=== PATIENT | female | born 1960 | race Caucasian/White ===

== ENCOUNTER → 2017-04-16 | Outpatient (CLI) | payer OTHER ==
[~2017-04-16] MED LIST: ACT300 PO; ATR10 PO; ATR25 PO; AZAT50TA22 PO; CIPR-255 PO; CRG/20 PO; GABA1CAP4 PO; HYDR-5688 PO; INSDGI SC; INSU100I SC; LPT/20 PO; NVLG SC; PANT40TA2 PO; [UNRECOGNIZED DRUG - CODE] PO; [UNRECOGNIZED DRUG - CODE] SC
[2017-04-16 15:05] LABS: ALT/SGPT 32 U/L (12-78); BLOOD UREA NITROGEN 15 mg/dl (7-18); BUN/CREATININE RATIO 19.6 (10-20); CARBON DIOXIDE 24 mmol/L (21-32); CHLORIDE 108 mmol/L (98-107); CREATININE 0.74 mg/dl (0.60-1.20); GLUCOSE 212 mg/dl (70-99); POTASSIUM 3.9 mmol/L (3.5-5.1); SODIUM 142 mmol/L (136-145)
[2017-04-16 15:06] LABS: ALB/GLOB RATIO 0.5 (0.9-2); AST/SGOT 69 U/L (15-37)
[2017-04-16 15:11] LABS: ALKALINE PHOSPHATASE 221 U/L (45-117)
== END | disposition home or self-care (01) ==
LOC: C.LAB1850 11:57
PROVIDERS: ATTEND Internal Medicine Hematology & Oncology
DX: D53.1 Other megaloblastic anemias, not elsewhere classified (principal)

== ENCOUNTER → 2017-05-10 | Outpatient (CLI) | payer OTHER ==
[~2017-05-10] MED LIST changes: -PANT40TA2 PO; +PRT/40 PO
--- NOTE | 2017-05-10 09:39 | DIAGNOSTIC IMAGING REPORT ---
ABDOMEN LIMITED (US) HISTORY:57 yearsFemaleHYPERSPLENISM COMPARISON: Ultrasound 09/22/2013. TECHNIQUE: Multiple real-time sonography images of the abdominal right upper quadrant were obtained assessing grayscale appearance, color and spectral flow. FINDINGS: Liver is measured up to 15.6 cm. Hepatic parenchyma is heterogeneous with marginal nodularity. Hepatofugal flow is noted within the main portal vein. There appears be recanalization of the umbilical vein. Likely portosystemic collaterals are noted near the john hepatis. The common bile duct appears normal, 0.47 cm. No significant ascites. There is a reportedly mobile echogenic lesion within the bladder neck without internal vascularity, 1.4 x 1.3 cm. No shadowing cholelithiasis or gallbladder wall thickening. There is a cystic appearing lesion without internal vascularity seen along the anterior aspect of the pancreatic head, 1.2 x 0.6 x 0.7 cm. Spleen is enlarged, 13.9 cm. The midright kidney appears normal without hydronephrosis. IMPRESSION: 1. Findings compatible with cirrhotic liver disease and sequela of portal venous hypertension including hepatofugal flow within the portal vein and splenomegaly. 2. Reportedly mobile echogenic lesion within the gallbladder neck measuring up to 1.4 cm suggests sludge ball. 3. No cholelithiasis or evidence of acute cholecystitis. The above report was generated using voice recognition software. It may contain grammatical, syntax or spelling errors. Electronically signed by: Yoel Sanchez 05/10/2017 9:38 AM Dictated Date/Time: 05/10/2017 9:32 AM
--- NOTE | 2017-05-10 11:12 | DIAGNOSTIC IMAGING REPORT ---
SKELETAL SURVEY COMPLETE CLINICAL HISTORY: Monoclonal gammopathy of uncertain significance. COMPARISON STUDY: Skeletal survey January 04, 2015. FINDINGS: No suspicious lytic calvarial lesions are noted. Alignment of the cervical spine is anatomic. There are no cervical fractures or suspicious lesions within the cervical spine. There are no lytic lesions within the proximal humeri. No thoracic or lumbar spine compression fractures are present. Mild multilevel degenerative changes are present. No lytic lesions are identified within the pelvis or hips. IMPRESSION: No lytic lesions identified by skeletal survey. Electronically signed by: Omar Orlando M.D. 05/10/2017 11:11 AM Dictated Date/Time: 05/10/2017 10:20 AM
== END | disposition home or self-care (01) ==
LOC: C.ULTR 08:12
PROVIDERS: ATTEND Nurse Practitioner Family
DX: D47.2 Monoclonal gammopathy (principal)

== ENCOUNTER 2017-08-05 21:53 | Emergency (ER) | payer OTHER ==
[~2017-08-05] VITALS: Ht 147.3 cm; Wt 80.1 kg
[~2017-08-05 21:53] MED LIST changes: -ATR10 PO; -CIPR-255 PO; -GABA1CAP4 PO; -HYDR-5688 PO; -INSU100I SC; -LPT/20 PO; -PRT/40 PO; -[UNRECOGNIZED DRUG - CODE] PO
[2017-08-05 21:57] VITALS: Ht 147.3 cm; Wt 80.1 kg
[2017-08-05] MEDS ORDERED: ATR10 PO (22:24)
[2017-08-05] MEDS ORDERED: INSU100I SC (22:24)
[2017-08-05] MEDS ORDERED: [UNRECOGNIZED DRUG - CODE] PO (22:24)
[2017-08-05] MEDS ORDERED: PRT/40 PO (22:24)
[2017-08-05] MEDS ORDERED: GABA1CAP4 PO (22:24)
[2017-08-05] MEDS ORDERED: LPT/20 PO (22:24)
[2017-08-05] MEDS ORDERED: MoRPHine SULFATE 10 MG/ML CARP/VIAL IV STA (22:59)
[2017-08-05] MEDS ORDERED: ONDANSETRON INJ 2 MG/ML 2 ML VIAL IV STA (22:59)
[2017-08-05] MEDS ORDERED: SODIUM CHLORIDE 0.9% 1000ML 1,000 ML IV ONE (23:00)
[2017-08-05 23:40] LABS: URINE APPEARANCE CLEAR (CLEAR); URINE BILIRUBIN NEG (NEG); URINE COLOR DK YELLOW; URINE EPITHELIAL CELL AUTO >30 /lpf (0-5); URINE NITRITE NEG (NEG); URINE SPECIFIC GRAVITY 1.023 (1.000-1.030); UROBILINOGEN NEG (NEG); ZZUR CULT IF INDIC CLEAN CATCH YES
[2017-08-05 23:44] LABS: MANUAL MICROSCOPIC REQUIRED? NO; REVIEW REQ? NO
[2017-08-05 23:57] LABS: BUN/CREATININE RATIO 12.7 (10-20); CALCIUM 8.4 mg/dl (8.5-10.1); CREATININE 0.78 mg/dl (0.60-1.20); POTASSIUM 4.1 mmol/L (3.5-5.1)
[2017-08-05 23:59] LABS: ALB/GLOB RATIO 0.5 (0.9-2)
[2017-08-06 00:07] LABS: BETA-HYDROXYBUTYRATE 0.67 mg/dL (0.2-2.81)
[2017-08-06 00:26] LABS: HEMATOCRIT 28.2 % (37-47); MEAN CELL VOLUME 99.6 fL (80-100); MEAN CORPUSCULAR HEMOGLOBIN 33.9 pg (25-34); MEAN PLATELET VOLUME 11.4 fL (7.4-10.4); PLATELET COUNT 72 K/uL (130-400); RED BLOOD COUNT 2.83 M/uL (4.2-5.4); WHITE BLOOD COUNT 3.27 K/uL (4.8-10.8)
[2017-08-06 00:27] LABS: BASO % 0.3 %; BASO ABS # 0.01 K/uL (0-0.2); COMPLETE YES; EOS % 1.8 %; IG% 1.2 %; LYMPH % 24.5 %; MONO % 11.3 %; NEUT % 60.9 %
[2017-08-06] MEDS ORDERED: CIPROFLOXACIN 500 MG TAB PO STA (01:06)
[2017-08-06] MEDS ORDERED: KETOROLAC TROMETHAMINE 30 MG/ML VIAL IV STA (01:06)
[2017-08-06] MEDS ORDERED: HYDR-5688 PO (01:07)
[2017-08-06] MEDS ORDERED: CIPR-255 PO (01:07)
[2017-08-06 01:25] VITALS: BP 121/64; PULSE 84; TEMP 37.2; O2SAT 96
--- NOTE | 2017-08-06 07:16 | DIAGNOSTIC IMAGING REPORT ---
ABD/PELVIS NO IV OR ORAL CONT HISTORY: 57 years-old Female right flank pain acute right-sided flank pain COMPARISON: Ultrasound 09/22/2013 TECHNIQUE: Multiple axial CT images of the abdomen and pelvis were obtained without contrast. A dose lowering technique was used consistent with the principals of SANDIE. FINDINGS: Lung bases are generally clear. No pneumoperitoneum. Imaged inferior cardiac chambers are unremarkable. Evaluation of the solid abdominal organs is limited without the use of IV contrast. Heterogeneity with marginal nodularity of the liver is seen compatible with cirrhosis. Spleen is enlarged measuring up to 15.8 cm in craniocaudal dimension. Pancreas and adrenal glands are unremarkable. Gallstones are seen layering within the contracted gallbladder lumen. No CT evidence of acute cholecystitis. Low attenuating lesion of the interpolar left kidney, 1.5 cm suggests cyst. Punctate nonobstructing calculus of the superior pole right kidney noted on image 138 of series 3. No hydronephrosis. Ureters, urinary bladder are unremarkable. Prior hysterectomy. The abdominal aorta is normal in course and caliber. No bulky retroperitoneal adenopathy. 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 There is no bowel obstruction or focal bowel wall thickening identified. Colonic diverticulosis without diverticulitis. The appendix is not seen. No secondary signs of acute appendicitis. Soft tissues are unremarkable with the exception of calcifications of the right breast which are indeterminate. The bones are mildly demineralized. IMPRESSION: 1. No acute intra-abdominal or intrapelvic abnormality identified. 2. Cirrhotic liver disease with upper abdominal varices including perisplenic and gastrohepatic varices. No significant abdominal ascites. 3. Cholelithiasis without CT evidence of acute cholecystitis. 4. Punctate nonobstructing calculus of the superior pole right kidney. No hydronephrosis. 5. Additional incidental findings as above. The above report was generated using voice recognition software. It may contain grammatical, syntax or spelling errors. Electronically signed by: Yoel Sanchez M.D. 08/06/2017 7:14 AM Dictated Date/Time: 08/06/2017 7:07 AM
--- NOTE | 2017-08-06 23:58 | EMERGENCY ROOM VISIT NOTE ---
History First contact with patient: 22:26 Chief Complaint: BACK PAIN Stated Complaint: BACK AND SIDE PAIN History of Present Illness The patient is a 57 year old female who presents to the Emergency Room with complaints of right-sided back pain for the past one to 2 weeks. The patient states at times she'll have pain in her right side and right-sided low back. She does not have injury or trauma to explain her symptoms. No increase in physical activities. Her symptoms were initially thought to be related to a kidney stone or kidney infection, and she did follow with her PCP. She was placed on antibiotics which did improve her symptoms. She completed antibiotics several days ago, but now continues with persisting pain. The patient has not had nausea or vomiting. No chest pain or shortness of breath. She rates her discomfort a 7/10 that does not appear to significantly improve or worsen with position. She does not have numbness or paresthesias. No difficulty using the bathroom. Review of Systems More than 10 systems were reviewed and otherwise negative with the exception of history of present illness. Past Medical/Surgical History History of diabetes Family History No pertinent family history Social History Smoking Status: Never Smoker Alcohol Use: none Drug Use: none Marital Status: Housing Status: lives with family Occupation Status: employed Current/Historical Medications Scheduled Atorvastatin (Atorvastatin Calcium), 20 MG PO DAILY Ciprofloxacin Hcl (Cipro), 500 MG PO BID Gabapentin (Gabapentin), 300 MG PO HS Hydroxyzine HCl (Hydroxyzine HCl), 10 MG PO HS Insulin Glargine (Lantus), 40 UNITS SC HS Insulin Lispro (Human) (Humalog), 15 UNITS SC TIDM Nadolol (Corgard), 20 MG PO DAILY Pantoprazole (Pantoprazole Sodium), 40 MG PO QAM Ursodiol (Ursodiol), 300 MG PO AMHS Ursodiol (Ursodiol), 250 MG PO AMHS Scheduled PRN Hydrocodone/Acetaminophen 5MG/325MG ([place] 5MG/325MG), 1 TABLET PO Q6 PRN for Pain Physical Exam Vital Signs Date Time Temp Pulse Resp B/P (MAP) Pulse Ox O2 Delivery O2 Flow Rate FiO2 08/06/17 01:25 37.2 84 18 121/64 96 08/05/17 23:55 84 18 121/64 96 Room Air 08/05/17 21:57 37.2 85 18 139/72 98 Room Air Physical Exam VITALS: Vitals are noted on the nurse's note and reviewed by myself. Vital signs stable. GENERAL: Well-developed, well-nourished, white female, who is in no acute distress and resting comfortably. Patient is cooperative with the examination. HEART: Regular rate and rhythm without murmurs gallops or rubs. LUNGS: Clear to auscultation bilaterally without wheezes, rales or rhonchi. No retractions or accessory muscle use. BACK: Mild tenderness appreciated throughout the lower lumbar spine. No significant paravertebral spasm. No CVA tenderness. Negative straight leg raise. No saddle paresthesias. ABDOMEN: Positive normal bowel sounds x 4. Soft, nontender, without masses or organomegaly. No guarding or rebound tenderness. MUSCULOSKELETAL: No muscle atrophy, erythema, or edema noted. Full range of motion without joint tenderness in all extremities. Medical Decision & Procedures ER Provider Diagnostic Interpretation: ABD/PELVIS NO IV OR ORAL CONT HISTORY: 57 years-old Female right flank pain acute right-sided flank pain COMPARISON: Ultrasound 09/22/2013 TECHNIQUE: Multiple axial CT images of the abdomen and pelvis were obtained without contrast. A dose lowering technique was used consistent with the principals of ALARA. FINDINGS: Lung bases are generally clear. No pneumoperitoneum. Imaged inferior cardiac chambers are unremarkable. Evaluation of the solid abdominal organs is limited without the use of IV contrast. Heterogeneity with marginal nodularity of the liver is seen compatible with cirrhosis. Spleen is enlarged measuring up to 15.8 cm in craniocaudal dimension. Pancreas and adrenal glands are unremarkable. Gallstones are seen layering within the contracted gallbladder lumen. No CT evidence of acute cholecystitis. Low attenuating lesion of the interpolar left kidney, 1.5 cm suggests cyst. Punctate nonobstructing calculus of the superior pole right kidney noted on image 138 of series 3. No hydronephrosis. Ureters, urinary bladder are unremarkable. Prior hysterectomy. The abdominal aorta is normal in course and caliber. No bulky retroperitoneal adenopathy. 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 There is no bowel obstruction or focal bowel wall thickening identified. Colonic diverticulosis without diverticulitis. The appendix is not seen. No secondary signs of acute appendicitis. Soft tissues are unremarkable with the exception of calcifications of the right breast which are indeterminate. The bones are mildly demineralized. IMPRESSION: 1. No acute intra-abdominal or intrapelvic abnormality identified. 2. Cirrhotic liver disease with upper abdominal varices including perisplenic and gastrohepatic varices. No significant abdominal ascites. 3. Cholelithiasis without CT evidence of acute cholecystitis. 4. Punctate nonobstructing calculus of the superior pole right kidney. No hydronephrosis. 5. Additional incidental findings as above. The above report was generated using voice recognition software. It may contain grammatical, syntax or spelling errors. Laboratory Results 08/05/17 23:25 Red Blood Count 2.83, Mean Corpuscular Volume 99.6, Mean Corpuscular Hemoglobin 33.9, Mean Corpuscular Hemoglobin Concent 34.0, Mean Platelet Volume 11.4, Neutrophils (%) (Auto) 60.9, Lymphocytes (%) (Auto) 24.5, Monocytes (%) (Auto) 11.3, Eosinophils (%) (Auto) 1.8, Basophils (%) (Auto) 0.3, Neutrophils # (Auto ) 1.99, Lymphocytes # (Auto) 0.80, Monocytes # (Auto) 0.37, Eosinophils # (Auto ) 0.06, Basophils # (Auto) 0.01 08/05/17 23:25 Test 08/05/17 23:20 08/05/17 23:25 Urine Color DK YELLOW Urine Appearance CLEAR (CLEAR) Urine pH 7.0 (4.5-7.5) Urine Specific [place] 1.023 (1.000-1.030) Urine Protein NEG (NEG) Urine Glucose (UA) 3+ (NEG) Urine Ketones NEG (NEG) Urine Occult Blood NEG (NEG) Urine Nitrite NEG (NEG) Urine Bilirubin NEG (NEG) Urine Urobilinogen NEG (NEG) Urine Leukocyte Esterase TRACE (NEG) Urine WBC (Auto) 5-10 /hpf (0-5) Urine RBC (Auto) 0-4 /hpf (0-4) Urine Hyaline Casts (Auto) 0 /lpf (0-5) Urine Epithelial Cells (Auto) >30 /lpf (0-5) Urine Bacteria (Auto) 1+ (NEG) White Blood Count 3.27 K/uL (4.8-10.8) Red Blood Count 2.83 M/uL (4.2-5.4) Hemoglobin 9.6 g/dL (12.0-16.0) Hematocrit 28.2 % (37-47) Mean Corpuscular Volume 99.6 fL (80-100) Mean Corpuscular Hemoglobin 33.9 pg (25-34) Mean Corpuscular Hemoglobin Concent 34.0 g/dl (32-36) Platelet Count 72 K/uL (130-400) Mean Platelet Volume 11.4 fL (7.4-10.4) Neutrophils (%) (Auto) 60.9 % Lymphocytes (%) (Auto) 24.5 % Monocytes (%) (Auto) 11.3 % Eosinophils (%) (Auto) 1.8 % Basophils (%) (Auto) 0.3 % Neutrophils # (Auto) 1.99 K/uL (1.4-6.5) Lymphocytes # (Auto) 0.80 K/uL (1.2-3.4) Monocytes # (Auto) 0.37 K/uL (0.11-0.59) Eosinophils # (Auto) 0.06 K/uL (0-0.5) Basophils # (Auto) 0.01 K/uL (0-0.2) RDW Standard Deviation 49.7 fL (36.4-46.3) RDW Coefficient of Variation 13.5 % (11.5-14.5) Immature Granulocyte % (Auto) 1.2 % Immature Granulocyte # (Auto) 0.04 K/uL (0.00-0.02) Anion Gap 6.0 mmol/L (3-11) Est Creatinine Clear Calc Drug Dose 72.8 ml/min Estimated GFR () 99.2 Estimated GFR (Non- 85.6 BUN/Creatinine Ratio 12.7 (10-20) Calcium Level 8.4 mg/dl (8.5-10.1) Total Bilirubin 1.9 mg/dl (0.2-1) Aspartate Amino Transf (AST/SGOT) 55 U/L (15-37) Alanine Aminotransferase (ALT/SGPT) 24 U/L (12-78) Alkaline Phosphatase 251 U/L (45-117) Total Protein 6.4 gm/dl (6.4-8.2) Albumin 2.1 gm/dl (3.4-5.0) Globulin 4.3 gm/dl (2.5-4.0) Albumin/Globulin Ratio 0.5 (0.9-2) Lipase 445 U/L (73-393) Beta-Hydroxybutyric Acid 0.67 mg/dL (0.2-2.81) Medications Administered Medications (Trade) Dose Ordered Sig/Purvi Route Start Time Stop Time Status Last Admin Dose Admin Sodium Chloride 1,000 ml @ 999 mls/hr Q1H1M ONCE IV 08/05/17 23:00 08/06/17 00:00 DC 08/05/17 23:30 999 MLS/HR Morphine Sulfate (MoRPHine SULFATE INJ) 6 mg NOW STAT IV 08/05/17 22:59 08/05/17 23:00 DC 08/05/17 23:30 6 MG Ondansetron HCl (Zofran Inj) 4 mg NOW STAT IV 08/05/17 22:59 08/05/17 23:00 DC 08/05/17 23:30 4 MG Ketorolac Tromethamine (Toradol Inj) 30 mg NOW STAT IV 08/06/17 01:06 08/06/17 01:07 DC 08/06/17 01:25 30 MG Ciprofloxacin (Cipro Tab) 500 mg NOW STAT PO 08/06/17 01:06 08/06/17 01:07 DC 08/06/17 01:25 500 MG ED Course Physical exam and history were performed. Nursing notes, EMR, and Medication List were personally reviewed. Patient appears to have back/flank pain for the past one to 2 weeks. Her symptoms do not seem to be significantly worsened with position. IV access was established and labs were obtained. Patient was hydrated and medicated as above. Out of concern for possible kidney stone I did elect to perform a CT scan of the abdomen and pelvis. The patient's blood work is as above and was reviewed. She does not have a significantly elevated white blood cell count or bandemia. She has some mild anemia which appears chronic. Urine may represent infection with culture pending. CT scan is as above and does not show significant acute findings. On reevaluation the patient felt much better after medication. She may have a urine infection, and I will treat her with Cipro pending the culture. With a nonacute CAT scan I suspect that her symptoms are musculoskeletal in nature. I will give her a short course of Vicodin for pain control. The patient will need to follow with her primary care physician for recheck of her condition. She was otherwise quite back to the ER with any new, worsening, or concerning symptoms. The chart was completed utilizing [employer] Speech Voice Recognition Software. Grammatical errors, random word insertions, pronoun errors, and incomplete sentences are an occasional consequence of this system due to software limitations, ambient noise, and hardware issues. Any formal questions or concerns about the content, text, or information contained within the body of this dictation should be directly addressed to the provider for clarification. . Medical Decision Differential diagnosis: Etiologies such as musculoskeletal, disc herniation, fracture, aortic disease, metastatic disease, cord compression, discitis, infection, renal colic, gastrointestinal, acute exacerbation of chronic back pain, sciatica, cauda equina, as well as others were entertained. Impression Primary Impression: Back pain Additional Impression: UTI (urinary tract infection) Departure Information Dispostion Home / Self-Care Condition GOOD Prescriptions Hydrocodone/Acetaminophen 5MG/325MG ([place] 5MG/325MG) Tab 1 TABLET PO Q6 Y for Pain, #12 TAB For Initial Treatment Prov: Joe Cheung PA-C 08/06/17 Ciprofloxacin Hcl (CIPRO) 500 Mg Tab 500 MG PO BID for 7 Days, #14 TAB Prov: Joe Cheung PA-C 08/06/17 Forms HOME CARE DOCUMENTATION FORM, IMPORTANT VISIT INFORMATION Patient Instructions My [facility] Additional Instructions You were seen and evaluated today on an emergency basis only. This is not a substitute for, or an effort to provide, complete comprehensive medical care. It is not possible to recognize and treat all injuries or illnesses in a single emergency department visit. For this reason it is recommended that you followup with your primary care physician in the next week for recheck of your condition. For baseline pain relief you may alternate ibuprofen and acetaminophen every 4 hours for pain control. Take 600 mg ibuprofen (Advil) and then 4 hours later take 1000 mg acetaminophen (Tylenol). Do not take more than 3000 mg acetaminophen in a single day. [place] (hydrocodone/acetaminophen) 5/325 mg every 6 hours as needed for worsening breakthrough pain. Do not drink or drive on [place]. This medication will likely make you tired. Do not take [place] and Tylenol at the same time as both contain acetaminophen. [place] may cause constipation. You may wish to take an [id number] stool softener like Colace if this occurs. Ciprofloxacin(Cipro) 500mg: Take one pill twice daily for 7 days for your infection. All antibiotics can cause diarrhea. If this occurs and you feel worse or it does not resolve in 1-2 days follow up with your doctor or return to the Emergency Department as this could be signs of serious underlying problems. If you experience any pain in your tendons or any tendon injury return to the ER for re-evaluation. Any medication can cause an allergic reaction, stop the pills immediately and return to the ER for rash, hives, breathing difficulties, or swelling. You are welcome to return to the emergency department anytime with new, worsening, or concerning symptoms. Problem Qualifiers
== END 2017-08-06 01:27 | disposition home or self-care (01) ==
LOC: C.EDB 21:55 → C.EDA 08-06 01:27
DX: N39.0 Urinary tract infection, site not specified (principal); E11.9 Type 2 diabetes mellitus without complications; Z79.4 Long term (current) use of insulin; Z79.899 Other long term (current) drug therapy

== ENCOUNTER 2017-10-14 10:28 | Emergency (ER) | payer OTHER ==
[2017-10-14 10:28] VITALS: TEMP 36.9
[~2017-10-14 10:28] MED LIST changes: +ATR10 PO; -ATR25 PO; -AZAT50TA22 PO; +GABA1CAP4 PO; +INSU100I SC; +LPT/20 PO; -NVLG SC; +PANT40TA2 PO; +[UNRECOGNIZED DRUG - CODE] PO; -[UNRECOGNIZED DRUG - CODE] SC
[2017-10-14] MEDS ORDERED: ACETAMINOPHEN 500 MG TAB PO STA (10:46)
[2017-10-14] MEDS ORDERED: OXYCODONE HCL IR 5 MG TAB (IMMEDIATE RELEASE) PO STA (10:46)
--- NOTE | 2017-10-14 10:53 | EMERGENCY ROOM VISIT NOTE ---
History Report prepared by Oscar: Mery James Under the Supervision of: Dr. Adrián Mercado M.D. First contact with patient: 10:40 Chief Complaint: SHOULDER PAIN Stated Complaint: FALL/RT. ARM AND SHOULDER PAIN History of Present Illness The patient is a 57 year old female who presents to the Emergency Room with complaints of a sudden fall that occurred just prior to arrival. She currently rates her discomfort as a 7/10 in severity. The patient reports that she was shoveling snow this morning when she slipped and fell on her right side. She states that she fell onto her right shoulder, noting that her right arm was down along her body. The patient denies any head, neck, or leg injury. She states that her breathing feels labored. The patient denies any abdominal pain , but notes nausea. The patient denies being on any anticoagulants. She states that she is on Gabapentin at night. Per nursing staff, the patient was given 4 mg of Morphine IM en-route to the emergency department. The patient denies any complaints prior to her fall. Source of History: patient Onset: prior to arrival Position: other (global) Symptom Intensity: 7/10 Quality: other (fall) Timing: other (sudden) Associated Symptoms: + nausea, No neck pain, No abdominal pain Note: Associated Symptoms: right shoulder injury, labored breathing Review of Systems See HPI for pertinent positives & negatives. A total of 10 systems reviewed and were otherwise negative. Past Medical & Surgical Medical Problems: (1) Diabetes (2) Hypertension Family History Diabetes mellitus Social History Smoking Status: Never Smoker Alcohol Use: none Drug Use: none Marital Status: Housing Status: lives with family Occupation Status: employed Current/Historical Medications Scheduled Gabapentin (Gabapentin), 300 MG PO HS Hydroxyzine HCl (Hydroxyzine HCl), 10 MG PO HS Insulin Glargine (Lantus), 40 UNITS SC HS Insulin Lispro (Human) (Humalog), 15 UNITS SC TIDM Nadolol (Corgard), 20 MG PO DAILY Pantoprazole (Pantoprazole Sodium), 40 MG PO QAM Ursodiol (Ursodiol), 300 MG PO AMHS Ursodiol (Ursodiol), 250 MG PO AMHS Scheduled PRN Oxycodone Ir (Roxicodone Ir), 1-2 TAB PO Q4H PRN for Pain Allergies Coded Allergies: Iodinated Diagnostic Agents (Verified Allergy, Intermediate, Sneezing and breaks out into a rash, 10/14/17) IV Dye Penicillins (Verified Allergy, Intermediate, HIVES, 10/14/17) Physical Exam Vital Signs Date Time Temp Pulse Resp B/P (MAP) Pulse Ox O2 Delivery O2 Flow Rate FiO2 10/14/17 14:23 82 16 125/74 98 Room Air 10/14/17 12:08 95 16 127/68 98 Room Air 10/14/17 10:28 36.9 102 20 143/88 98 Room Air Physical Exam GENERAL: Patient is in no acute distress. HEENT: No acute trauma, normocephalic atraumatic, mucous membranes moist, no nasal congestion, no scleral icterus. NECK: No stridor, no adenopathy, no meningismus, trachea is midline. No posterior c-spine tenderness. CHEST WALL: No lateral rib pain with compression. LUNGS: Clear to auscultation bilaterally, no wheeze, no rhonchi, breath sounds equal. HEART: Mildly tachycardic without any murmurs, normal rhythm. ABDOMEN: Soft, nontender, bowel sounds positive, no hernias, no peritonitis. EXTREMITIES: Tender over the lateral aspect of the right shoulder, no evidence for dislocation clinically, right clavicle seems stable, right elbow is nontender, NVI distally in right upper extremity. NEUROLOGIC: Oriented x 3, no acute motor or sensory deficits, no focal weakness. SKIN: No rash, no jaundice, no diaphoresis. Medical Decision & Procedures ER Provider Diagnostic Interpretation: Radiology results as stated below per my review and radiologist interpretation: RIGHT SHOULDER 2 VIEWS CLINICAL HISTORY: Fall with right arm injury. FINDINGS: 2 views of the right shoulder are correlated with skeletal survey dated 01/04/2015. The skeletal structures appear osteopenic. There is an impacted fracture through the humeral neck extending through the humeral head with small distracted fragments. There is inferior subluxation of the humeral head. The scapula appears intact. The acromioclavicular joint is within normal limits. The visualized right lung parenchyma appears clear. Mild overlying soft tissue edema is noted. IMPRESSION: 1. There is an impacted and comminuted fracture of the humeral neck and head with small distracted fragments. 2. No additional fracture is seen. 3. There is inferior subluxation of the humeral head at the glenohumeral joint. Electronically signed by: Adrián Deutsch M.D. 10/14/2017 11:34 AM Dictated Date/Time: 10/14/2017 11:33 AM R HUMERUS MIN 2 VIEWS ROUTINE CLINICAL HISTORY: fall, pain trauma. Pain. COMPARISON: None. DISCUSSION: Slightly impacted fracture humeral head and neck. Partial anterior subluxation versus projectional variation. Remainder the humerus is unremarkable. Mild degenerative change right elbow. There is no evidence for soft tissue swelling. IMPRESSION: 1. Subtle impacted fracture humeral head and neck. 2. Potential partial inferior subluxation versus technical projection factors The above report was generated using voice recognition software. It may contain grammatical, syntax or spelling errors. Electronically signed by: Farooq Esteves M.D. 10/14/2017 11:32 AM Dictated Date/Time: 10/14/2017 11:[address] SCAN OF THE RIGHT SHOULDER WITHOUT IV CONTRAST CLINICAL HISTORY: Humeral fracture. COMPARISON STUDY: Radiographs of the right shoulder dated 10/14/2017. TECHNIQUE: CT scan of the right shoulder performed from the lower neck to the humeral shaft. Images are reviewed in the axial, sagittal, and coronal planes. IV contrast was not administered for this examination. 3-D reformats are created and assessed. A dose lowering technique was utilized adhering to the principles of ALARA. CT DOSE: 676.31 mGy.cm FINDINGS: The skeletal structures are osteopenic. There is an impacted fracture of the humeral neck which extends through the humeral head. There are numerous small distracted fragments. Small fragments are noted in the inferior joint space. Lipohemarthrosis is observed, and there is mild inferior subluxation of the humeral head. No additional fracture is seen. The glenoid is intact. Productive degenerative change is noted at the acromioclavicular joint. The visualized right-sided ribs are preserved. The visualized right lung parenchyma appears clear. There is hemorrhage in the sternum soft tissues. No large/organized hematoma is seen. The regional musculature is grossly normal in appearance. There is no axillary lymphadenopathy. IMPRESSION: 1. There is an impacted and comminuted fracture involving the right humeral head and neck as above with small distracted fragments. 2. There is lipohemarthrosis with mild inferior subluxation of the humeral head. 3. No additional fracture is seen. Dictated: 10/14/2017 12:31 PM Transcribed: 10/14/2017 1:13 PM [facility] Medications Administered Medications (Trade) Dose Ordered Sig/Purvi Route Start Time Stop Time Status Last Admin Dose Admin Oxycodone HCl (Roxicodone Immediate Rel Tab) 5 mg NOW STAT PO 10/14/17 10:46 10/14/17 10:48 DC 10/14/17 11:01 5 MG Acetaminophen (Tylenol Tab) 1,000 mg NOW STAT PO 10/14/17 10:46 10/14/17 10:48 DC 10/14/17 11:02 1,000 MG Ondansetron HCl (Zofran Odt) 4 mg NOW STAT PO 10/14/17 10:56 10/14/17 10:57 DC 10/14/17 11:01 4 MG Oxycodone HCl (Roxicodone Immediate Rel Tab) 5 mg STK-MED ONCE .ROUTE 10/14/17 13:23 10/14/17 13:24 DC 10/14/17 13:25 5 MG ED Course 1042: The patient was evaluated in room B8. A complete history and physical exam was performed. 1046: Ordered Tylenol Tab 1000 mg PO, Oxycodone HCl 5 mg PO. 1056: Ordered Zofran Odt 4 mg PO. 1211: I reevaluated the patient and she is resting comfortably. I discussed the test results thus far. She is awaiting a CT scan. 1323: Ordered Oxycodone HCl 5 mg .route. 1327: I reevaluated the patient and she is resting comfortably. I discussed the test results with her and I discussed the treatment plan. She verbalized complete understanding and agreement. Orthopedics will be consulted. 1418: I discussed the patients case with Jason Gilliland PA-C. He is going to look over the radiology reports and then call back. 1431: I spoke to Jason Gilliland PA-C. He states that the patient can be placed in a sling and can go home. He states that she can follow up as an outpatient. 1337: I reevaluated the patient and she is resting comfortably. I discussed the test results with her and I discussed the treatment plan. She verbalized complete understanding and agreement. She is ready to go home. Medical Decision The patient is a 57 year old female who presents to the ED with complaints of a fall. Differential diagnoses considered include Right shoulder fracture or dislocation, clavicle fracture, rib fracture, neurovascular compromise, head neck or abdominal trauma. The patient presents after slipping on the snow and falling onto her right shoulder. By exam and history, there was no evidence for injury to the head, neck, back, chest, abdomen or lower extremities. Her complaints of pain were isolated to the right shoulder. Films of the right shoulder do show evidence for a humeral head/neck fracture. Some possible subluxation of the joint was questioned. CT of the shoulder shows the proximal humeral head and neck fracture, no true dislocation of the shoulder joint seen. On exam, the patient was neurovascularly intact distally in the right upper extremity. The patient received oral Tylenol, and ice pack, oral oxycodone. She was placed in a right arm sling. I spoke with orthopedics and they did review the films. The patient may require surgery in the future, nothing was felt emergent. She is being discharged in a sling, oxycodone for pain. If things are worsening, she can return. She will follow closely with orthopedics as an outpatient. Of note, the patient's blood sugar has been running in the 200s lately. It was in the mid 200s here by our testing, this is baseline for her. I have encouraged her to follow her sugars closely and to adjust her fast acting insulin as needed. [place] Drug Monitoring Program Search Results: patient reviewed within database, no issues identified (She has received pain pills in the past, but nothing recently.) Medication Reconcilliation Current Medication List: was personally reviewed by me Consults Time Called: 1329 Consulting Physician: Jason Gilliland PA-C Returned Call: [phone] I discussed the patients case with Jason Gilliland PA-C. He is going to look over the radiology reports and then call back. Impression Primary Impression: Closed fracture of right proximal humerus Additional Impression: Fall Scribe Attestation The scribe's documentation has been prepared under my direction and personally reviewed by me in its entirety. I confirm that the note above accurately reflects all work, treatment, procedures, and medical decision making performed by me. Departure Information Dispostion Home / Self-Care Prescriptions Oxycodone Ir (Roxicodone Ir) 5 Mg Tab 1-2 TAB PO Q4H Y for Pain, #10 TAB Prov: Feese, Adrián J.,M.D. 10/14/17 Referrals No Doctor, Assigned (PCP) Forms HOME CARE DOCUMENTATION FORM, IMPORTANT VISIT INFORMATION, Work Instructions Patient Instructions My [facility] Additional Instructions wear the sling ice to the area to help with the pain as discussed oxy ir--1-2 tab every 4 hours for pain call and set up orthopedic appt--call william return for worsening symptoms or uncontrolled pain Problem Qualifiers
[2017-10-14] MEDS ORDERED: ONDANSETRON 4MG OD TAB PO STA (10:56)
--- NOTE | 2017-10-14 11:33 | DIAGNOSTIC IMAGING REPORT ---
R HUMERUS MIN 2 VIEWS ROUTINE CLINICAL HISTORY: fall, pain trauma. Pain. COMPARISON: None. DISCUSSION: Slightly impacted fracture humeral head and neck. Partial anterior subluxation versus projectional variation. Remainder the humerus is unremarkable. Mild degenerative change right elbow. There is no evidence for soft tissue swelling. IMPRESSION: 1. Subtle impacted fracture humeral head and neck. 2. Potential partial inferior subluxation versus technical projection factors The above report was generated using voice recognition software. It may contain grammatical, syntax or spelling errors. Electronically signed by: Farooq Esteves M.D. 10/14/2017 11:32 AM Dictated Date/Time: 10/14/2017 11:30 AM
--- NOTE | 2017-10-14 11:36 | DIAGNOSTIC IMAGING REPORT ---
RIGHT SHOULDER 2 VIEWS CLINICAL HISTORY: Fall with right arm injury. FINDINGS: 2 views of the right shoulder are correlated with skeletal survey dated 01/04/2015. The skeletal structures appear osteopenic. There is an impacted fracture through the humeral neck extending through the humeral head with small distracted fragments. There is inferior subluxation of the humeral head. The scapula appears intact. The acromioclavicular joint is within normal limits. The visualized right lung parenchyma appears clear. Mild overlying soft tissue edema is noted. IMPRESSION: 1. There is an impacted and comminuted fracture of the humeral neck and head with small distracted fragments. 2. No additional fracture is seen. 3. There is inferior subluxation of the humeral head at the glenohumeral joint. Electronically signed by: Adrián Deutsch M.D. 10/14/2017 11:34 AM Dictated Date/Time: 10/14/2017 11:33 AM
--- NOTE | 2017-10-14 13:13 | DIAGNOSTIC IMAGING REPORT ---
CT SCAN OF THE RIGHT SHOULDER WITHOUT IV CONTRAST CLINICAL HISTORY: Humeral fracture. COMPARISON STUDY: Radiographs of the right shoulder dated 10/14/2017. TECHNIQUE: CT scan of the right shoulder performed from the lower neck to the humeral shaft. Images are reviewed in the axial, sagittal, and coronal planes. IV contrast was not administered for this examination. 3-D reformats are created and assessed. A dose lowering technique was utilized adhering to the principles of ALARA. CT DOSE: 676.31 mGy.cm FINDINGS: The skeletal structures are osteopenic. There is an impacted fracture of the humeral neck which extends through the humeral head. There are numerous small distracted fragments. Small fragments are noted in the inferior joint space. Lipohemarthrosis is observed, and there is mild inferior subluxation of the humeral head. No additional fracture is seen. The glenoid is intact. Productive degenerative change is noted at the acromioclavicular joint. The visualized right-sided ribs are preserved. The visualized right lung parenchyma appears clear. There is hemorrhage in the sternum soft tissues. No large/organized hematoma is seen. The regional musculature is grossly normal in appearance. There is no axillary lymphadenopathy. IMPRESSION: 1. There is an impacted and comminuted fracture involving the right humeral head and neck as above with small distracted fragments. 2. There is lipohemarthrosis with mild inferior subluxation of the humeral head. 3. No additional fracture is seen. Dictated: 10/14/2017 12:31 PM Transcribed: 10/14/2017 1:13 PM [email or web address] Electronically signed by: Adrián Deutsch M.D. 10/14/2017 1:24 PM Dictated Date/Time: 10/14/2017 12:31 PM
[2017-10-14] MEDS ORDERED: OXYCODONE HCL IR 5 MG TAB (IMMEDIATE RELEASE) ONE (13:23)
[2017-10-14] MEDS ORDERED: OXYC1TAB3 PO (14:34)
[2017-10-14 14:50] VITALS: BP 115/76; PULSE 88; O2SAT 98
--- NOTE | 2017-10-15 13:04 | Pharmacy Progress Note ---
ED Pharmacist Progress Note Date of Service: Oct 15, 2017. Received phone call from Daina Cline RN at [facility] ([phone]) stating the patient had called her to schedule an appointment however she cannot be seen until Wednesday10/19/17. The patient stated she was concerned that she would run out of Oxy IR before the appointment and feared she would be in pain if she was not given more. [facility] stated they cannot prescribe her narcotics until she has been seen and evaluated as a patient. Reviewed case with Dr Gonzalez, he stated the patient should only use the Oxy IR for breakthrough pain and not rely on this medication alone for analgesia. He was willing to give an Rx for additional 10 tablets if patient still requiring Oxycodone for pain control. I attempted to contact the patient to advise Oxycodone should only be used for breakthrough pain after ice, Tylenol and Ibuprofen have failed and to offer additional Oxycodone IR if in significant pain despite these measures. There was no answer at the phone number provided ([phone]) however I did leave a message on [employer]ienceil.
== END 2017-10-14 14:50 | disposition home or self-care (01) ==
LOC: EDBD 10:28 → C.EDB 10:29
DX: S42.201A Unspecified fracture of upper end of right humerus, initial encounter for closed fracture (principal); W00.0XXA Fall on same level due to ice and snow, initial encounter; Y93.H1 Activity, digging, shoveling and raking; E11.9 Type 2 diabetes mellitus without complications; I10 Essential (primary) hypertension; Z83.3 Family history of diabetes mellitus; Z79.4 Long term (current) use of insulin; Z79.899 Other long term (current) drug therapy

== ENCOUNTER → 2017-10-28 | Outpatient (CLI) | payer OTHER ==
[~2017-10-28] MED LIST changes: -LPT/20 PO; +OXYC1TAB3 PO
== END | disposition home or self-care (01) ==
LOC: C.RDSM 10:15
PROVIDERS: ATTEND Orthopaedic Surgery
DX: T14.8XXA Other injury of unspecified body region, initial encounter (principal); X58.XXXA Exposure to other specified factors, initial encounter

== ENCOUNTER → 2017-11-16 | Outpatient (CLI) | payer OTHER | END | disposition home or self-care (01) | LOC: C.RDSM 11:57 | PROVIDERS: ATTEND Orthopaedic Surgery | DX: T14.8XXA Other injury of unspecified body region, initial encounter (principal); X58.XXXA Exposure to other specified factors, initial encounter ==

== ENCOUNTER → 2017-11-26 | Outpatient (CLI) | payer OTHER | END | disposition home or self-care (01) | LOC: C.RDSM 08:00 | PROVIDERS: ATTEND Orthopaedic Surgery | DX: S42.91XA Fracture of right shoulder girdle, part unspecified, initial encounter for closed fracture (principal); X58.XXXA Exposure to other specified factors, initial encounter ==

== ENCOUNTER → 2017-12-07 | Outpatient (CLI) | payer OTHER ==
[~2017-12-07] MED LIST changes: +GABA-1219 PO; -GABA1CAP4 PO
== END | disposition home or self-care (01) ==
LOC: C.RDSM 14:54
PROVIDERS: ATTEND Orthopaedic Surgery
DX: S42.91XA Fracture of right shoulder girdle, part unspecified, initial encounter for closed fracture (principal); X58.XXXA Exposure to other specified factors, initial encounter; Z88.0 Allergy status to penicillin; Z91.041 Radiographic dye allergy status; Z88.8 Allergy status to other drugs, medicaments and biological substances

== ENCOUNTER → 2018-02-01 | Outpatient (CLI) | payer OTHER | END | disposition home or self-care (01) | LOC: C.RDSM 10:20 | PROVIDERS: ATTEND Orthopaedic Surgery | DX: R52 Pain, unspecified (principal) ==

== ENCOUNTER 2018-03-03 19:19 | Emergency (ER) | payer OTHER ==
[~2018-03-03] VITALS: Ht 147.3 cm; Wt 83.1 kg
[~2018-03-03 19:19] MED LIST changes: -ACT300 PO; -PANT40TA2 PO
[2018-03-03 19:27] VITALS: TEMP 37.1; Ht 147.3 cm; Wt 83.1 kg
[2018-03-03] MEDS ORDERED: FUROSEMIDE 40 MG/4 ML VIAL IV STA (19:48)
[2018-03-03] MEDS ORDERED: NADO20TA PO (20:15)
[2018-03-03] MEDS ORDERED: ATOR-22 PO (20:15)
[2018-03-03] MEDS ORDERED: INSU100I23 SQ (20:15)
[2018-03-03] MEDS ORDERED: INSPMPHMLG SQ (20:15)
[2018-03-03] MEDS ORDERED: [UNRECOGNIZED DRUG - OTHER] TOP (20:15)
[2018-03-03] MEDS ORDERED: HYDR-389 PO (20:15)
[2018-03-03] MEDS ORDERED: IBUP-1050 PO (20:17)
[2018-03-03 20:23] LABS: INR 1.2 (0.9-1.1); PTT PATIENT 28.2 SECONDS (21.0-31.0)
[2018-03-03 20:28] LABS: ALBUMIN 2.1 gm/dl (3.4-5.0); ALT/SGPT 70 U/L (12-78); AST/SGOT 200 U/L (15-37); BLOOD UREA NITROGEN 14 mg/dl (7-18); CALCIUM 8.1 mg/dl (8.5-10.1); CARBON DIOXIDE 24 mmol/L (21-32); CREATININE 0.93 mg/dl (0.60-1.20); GLUCOSE 246 mg/dl (70-99); LIPASE 334 U/L (73-393); POTASSIUM 3.9 mmol/L (3.5-5.1); SODIUM 138 mmol/L (136-145)
[2018-03-03 20:29] LABS: HEMATOCRIT 25.2 % (37-47); HEMOGLOBIN 8.6 g/dL (12.0-16.0); MEAN CELL VOLUME 94.4 fL (80-100); MEAN CORPUSCULAR HEMOGLOBIN 32.2 pg (25-34); MEAN CORPUSCULAR HGB CONC 34.1 g/dl (32-36); MEAN PLATELET VOLUME 11.3 fL (7.4-10.4); PLATELET COUNT 83 K/uL (130-400); RED CELL DISTRIBUTION WIDTH CV 18.1 % (11.5-14.5); RED CELL DISTRIBUTION WIDTH SD 62.8 fL (36.4-46.3)
--- NOTE | 2018-03-03 20:32 | DIAGNOSTIC IMAGING REPORT ---
CHEST ONE VIEW PORTABLE CLINICAL HISTORY: 58 years-old Female presenting with Evaluate Fever/Sepsis. TECHNIQUE: Portable upright AP view of the chest was obtained. COMPARISON: 08/28/2017. FINDINGS: Atherosclerosis of the aortic arch. Cardiac silhouette normal in size. No focal opacity. No large effusion or pneumothorax. Deformity of the right humeral head, which is new from prior. Upper abdomen normal. IMPRESSION: 1. No acute cardiopulmonary disease. 2. Deformity of the right humeral head consistent with known fracture. Electronically signed by: Marcus Aguirre M.D. 03/03/2018 8:30 PM Dictated Date/Time: 03/03/2018 8:29 PM
[2018-03-03 20:36] LABS: BASO % 0.3 %; BASO ABS # 0.01 K/uL (0-0.2); EOS % 3.1 %; EOS ABS # 0.11 K/uL (0-0.5); IG# 0.01 K/uL (0.00-0.02); LYMPH % 20.3 %; LYMPH ABS # 0.71 K/uL (1.2-3.4); MONO % 9.1 %; MONO ABS # 0.32 K/uL (0.11-0.59); NEUT % 66.9 %; NEUT ABS # 2.34 K/uL (1.4-6.5)
[2018-03-03 20:43] LABS: ALKALINE PHOSPHATASE 248 U/L (45-117); CKMB 14.1 ng/ml (0.5-3.6); TOTAL PROTEIN 6.5 gm/dl (6.4-8.2)
[2018-03-03] MEDS ORDERED: ACT300 PO (21:06)
--- NOTE | 2018-03-03 21:43 | EMERGENCY ROOM VISIT NOTE ---
History Report prepared by Oscar: Kenzie Nunez Under the Supervision of: Dr. Raoul Sheppard D.O. First contact with patient: 19:41 Chief Complaint: SWELLING TO EXTREMITY Stated Complaint: SWELLING TO B/L ANKLES History of Present Illness The patient is a 58 year old female who presents to the Emergency Room with complaints of worsening swelling to bilateral ankles that started 2 weeks ago. The patient rates her pain a 6/10 in severity. The patient reports she is a dieretic. She states she has gained 30 pounds in the past 2 weeks. She notes she is having trouble walking because she gets short of breath. The patient states she called her doctor but they were not able to see her until Wednesday so they suggested she come to the ED. Source of History: patient Onset: 2 weeks ago Position: foot (bilateral) Symptom Intensity: 6/10 Timing: worsening Associated Symptoms: + SOB Review of Systems See HPI for pertinent positives & negatives. A total of 10 systems reviewed and were otherwise negative. Past Medical & Surgical Medical Problems: (1) Diabetes (2) Hypertension Family History Diabetes mellitus Social History Smoking Status: Never Smoker Alcohol Use: none Drug Use: none Marital Status: Housing Status: lives with family Occupation Status: employed Current/Historical Medications Scheduled Atorvastatin (Lipitor), 20 MG PO DAILY Gabapentin (Gabapentin), 600 MG PO HS Hydroxyzine Hcl (Atarax), 10 MG PO HS Insulin Glargine (Basaglar Kwikpen), 40-45 UNITS SQ QPM Insulin Human Lispro (Humalog), 15-20 UNITS SQ AC Nadolol (Corgard), 20 MG PO DAILY Pantoprazole (Pantoprazole Sodium), 40 MG PO QAM Ursodiol (Ursodiol), 300 MG PO AMHS [Psoriasin Gel], 1 APPLN TOP PRN Scheduled PRN Ibuprofen (Advil), 400 MG PO Q6 PRN for Headache or Pain Allergies Coded Allergies: Iodinated Diagnostic Agents (Verified Allergy, Intermediate, Sneezing and breaks out into a rash, 03/03/18) IV Dye Penicillins (Verified Allergy, Intermediate, HIVES, 03/03/18) Physical Exam Vital Signs Date Time Temp Pulse Resp B/P (MAP) Pulse Ox O2 Delivery O2 Flow Rate FiO2 03/03/18 20:39 78 03/03/18 20:06 80 20 122/57 100 Room Air 03/03/18 19:27 37.1 77 18 100/63 98 Room Air Physical Exam CONSTITUTIONAL/VITAL SIGNS: Reviewed / noted above. GENERAL: Non-toxic in appearance. INTEGUMENTARY: Warm, dry, and [place]. HEAD: Normocephalic. EYES: without scleral icterus or trauma. ENT/OROPHARYNX: clear and moist. LYMPHADENOPATHY/NECK: Is supple without lymphadenopathy or meningismus. RESPIRATORY: Lungs clear and equal. CARDIOVASCULAR: Regular rate and rhythm. GI/ABDOMEN: Soft and nontender. No organomegaly or pulsatile mass. No rebound or guarding. Normal bowel sounds. EXTREMITIES: Warm and well perfused. [place] edema bilaterally. BACK: No CVA tenderness. NEUROLOGICAL: Intact without focal deficits. PSYCHIATRIC: normal affect. MUSCULOSKELETAL: Normally developed with good muscle tone. Medical Decision & Procedures ER Provider Diagnostic Interpretation: Radiology results as stated below per my review and radiologist interpretation: CHEST ONE VIEW PORTABLE CLINICAL HISTORY: 58 years-old Female presenting with Evaluate Fever/Sepsis. TECHNIQUE: Portable upright AP view of the chest was obtained. COMPARISON: 08/28/2017. FINDINGS: Atherosclerosis of the aortic arch. Cardiac silhouette normal in size. No focal opacity. No large effusion or pneumothorax. Deformity of the right humeral head, which is new from prior. Upper abdomen normal. IMPRESSION: 1. No acute cardiopulmonary disease. 2. Deformity of the right humeral head consistent with known fracture. Electronically signed by: Marcus Aguirre M.D. 03/03/2018 8:30 PM Dictated Date/Time: 03/03/2018 8:29 PM Laboratory Results 03/03/18 20:00 Red Blood Count 2.67, Mean Corpuscular Volume 94.4, Mean Corpuscular Hemoglobin 32.2, Mean Corpuscular Hemoglobin Concent 34.1, Mean Platelet Volume 11.3, Neutrophils (%) (Auto) 66.9, Lymphocytes (%) (Auto) 20.3, Monocytes (%) (Auto) 9.1, Eosinophils (%) (Auto) 3.1, Basophils (%) (Auto) 0.3, Neutrophils # (Auto) 2.34, Lymphocytes # (Auto) 0.71, Monocytes # (Auto) 0.32, Eosinophils # (Auto) 0.11, Basophils # (Auto) 0.01 03/03/18 20:00 Test 03/03/18 20:00 White Blood Count 3.50 K/uL (4.8-10.8) Red Blood Count 2.67 M/uL (4.2-5.4) Hemoglobin 8.6 g/dL (12.0-16.0) Hematocrit 25.2 % (37-47) Mean Corpuscular Volume 94.4 fL (80-100) Mean Corpuscular Hemoglobin 32.2 pg (25-34) Mean Corpuscular Hemoglobin Concent 34.1 g/dl (32-36) Platelet Count 83 K/uL (130-400) Mean Platelet Volume 11.3 fL (7.4-10.4) Neutrophils (%) (Auto) 66.9 % Lymphocytes (%) (Auto) 20.3 % Monocytes (%) (Auto) 9.1 % Eosinophils (%) (Auto) 3.1 % Basophils (%) (Auto) 0.3 % Neutrophils # (Auto) 2.34 K/uL (1.4-6.5) Lymphocytes # (Auto) 0.71 K/uL (1.2-3.4) Monocytes # (Auto) 0.32 K/uL (0.11-0.59) Eosinophils # (Auto) 0.11 K/uL (0-0.5) Basophils # (Auto) 0.01 K/uL (0-0.2) RDW Standard Deviation 62.8 fL (36.4-46.3) RDW Coefficient of Variation 18.1 % (11.5-14.5) Immature Granulocyte % (Auto) 0.3 % Immature Granulocyte # (Auto) 0.01 K/uL (0.00-0.02) Hypochromasia PRESENT Prothrombin Time 13.0 SECONDS (9.0-12.0) Prothromb Time International Ratio 1.2 (0.9-1.1) Activated Partial Thromboplast Time 28.2 SECONDS (21.0-31.0) Partial Thromboplastin Ratio 1.1 Anion Gap 6.0 mmol/L (3-11) Est Creatinine Clear Calc Drug Dose 61.6 ml/min Estimated GFR () 79.6 Estimated GFR (Non- 68.7 BUN/Creatinine Ratio 15.3 (10-20) Calcium Level 8.1 mg/dl (8.5-10.1) Total Bilirubin 3.4 mg/dl (0.2-1) Direct Bilirubin 2.8 mg/dl (0-0.2) Aspartate Amino Transf (AST/SGOT) 200 U/L (15-37) Alanine Aminotransferase (ALT/SGPT) 70 U/L (12-78) Alkaline Phosphatase 248 U/L (45-117) Total Creatine Kinase 3183 U/L (26-192) Creatine Kinase MB 14.1 ng/ml (0.5-3.6) Creatine Kinase MB Ratio 0.4 (0-3.0) Troponin I < 0.015 ng/ml (0-0.045) Total Protein 6.5 gm/dl (6.4-8.2) Albumin 2.1 gm/dl (3.4-5.0) Lipase 334 U/L (73-393) Laboratory results as stated above per my review. Medications Administered Medications (Trade) Dose Ordered Sig/Purvi Route Start Time Stop Time Status Last Admin Dose Admin Furosemide (Lasix Inj) 40 mg NOW STAT IV 03/03/18 19:48 03/03/18 19:50 DC 03/03/18 20:09 40 MG ECG Per My Interpretation Indication: weakness Rate (beats per minute): 80 Rhythm: normal sinus Findings: no ectopy, other (No ST elevation, low voltage) ED Course 1940: Previous medical records were reviewed. The patient was evaluated in room B11B. A complete history and physical examination was performed. 194: Lasix Inj 40 mg. Medical Decision Differential includes acute coronary syndrome, myocardial infarction, CVA, TIA, anemia, infection, pneumonia, UTI, pyelonephritis, poor nutrition, dehydration, electrolyte disturbance,hypoglycemia. This is a 58-year-old female who presents to the ED with a chief complaint of increased lower extremity edema. The patient reports that she has gained about 30 pounds in the last 2 weeks. Reviewing the patient's weight from October and comparing it to now, she appears to have gained an overall net gain of 3 kg. The patient reports lower extremity edema. 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 The patient is in no distress. She does have bilateral pedal edema. Lungs clear. She denies having chest pains. Test results revealed a hemoglobin of 8.6. She denies any black or tarry stools. Her last hemoglobin was about 10 on August 28, 2017. An EKG shows a normal sinus rhythm. Total bilirubin is elevated at 3.4. In October is 2.5. Direct bilirubin was 2.8. AST is 200. It was 63. Total CK is 3183. Troponin was negative. Lipase was negative. The patient was told the results of the test. The patient's symptoms are likely related to her liver disease and the treatment thereof. She was advised to contact her roll weigher from [place] tomorrow and to get follow-up next week. She will return for worsening or new symptoms. Medication Reconcilliation Current Medication List: was personally reviewed by me Impression Primary Impression: Swelling of left extremity Additional Impressions: Swelling of right extremity Anemia Scribe Attestation The scribe's documentation has been prepared under my direction and personally reviewed by me in its entirety. I confirm that the note above accurately reflects all work, treatment, procedures, and medical decision making performed by me. Departure Information Patient Instructions My [facility] Additional Instructions Your test results reveal anemia. Your hemoglobin is 8.6. Total bilirubin was elevated at 3.4. Direct bilirubin is 2.8. AST is 200. CK is 3183. Follow-up with your liver specialist from [place] next week. Call tomorrow for an appointment. Return for worsening or new symptoms. Problem Qualifiers
[2018-03-03 21:51] VITALS: BP 117/70; PULSE 83; O2SAT 99
[2018-03-03] MEDS ORDERED: PANT40TA2 PO (22:24)
== END 2018-03-03 21:52 | disposition home or self-care (01) ==
LOC: C.EDB 19:20
DX: M79.89 Other specified soft tissue disorders (principal); D64.9 Anemia, unspecified; E11.9 Type 2 diabetes mellitus without complications; I10 Essential (primary) hypertension; Z79.4 Long term (current) use of insulin; Z88.0 Allergy status to penicillin; Z91.041 Radiographic dye allergy status

== ENCOUNTER 2018-03-09 08:18 | Inpatient (IN) | payer OTHER ==
[2018-03-09] VITALS (7 sets, daily range): BP systolic 84–109; BP diastolic 55–73; PULSE 72–77; TEMP 36.6–36.7; O2SAT 97–100; BMI 38.2
[~2018-03-09] VITALS: Ht 147.3 cm; Wt 84.1 kg
[~2018-03-09 08:18] MED LIST changes: +ACT300 PO; +ATOR-22 PO; -ATR10 PO; -CRG/20 PO; +HYDR-389 PO; +IBUP-1050 PO; -INSDGI SC; +INSPMPHMLG SQ; -INSU100I SC; +INSU100I23 SQ; +NADO20TA PO; -OXYC1TAB3 PO; +PANT40TA2 PO; -[UNRECOGNIZED DRUG - CODE] PO; +[UNRECOGNIZED DRUG - OTHER] TOP
[2018-03-09] MEDS ORDERED: FRS/40 PO (08:41)
[2018-03-09] MEDS ORDERED: ALBUTEROL 0.083% NEBU SOLN 3 ML VIAL INH STA ×2 (08:48→09:36)
--- NOTE | 2018-03-09 08:51 | EMERGENCY ROOM VISIT NOTE ---
History Report prepared by Oscar: Leonard Gutierres Under the Supervision of: Dr. Raoul Nation M.D. First contact with patient: 08:33 Chief Complaint: SWELLING TO EXTREMITY Stated Complaint: SWELLING UP History of Present Illness The patient is a 58 year old female who presents to the Emergency Room with complaints of worsening shortness of breath which she has been experiencing for a couple of weeks. She also notes a "tightness" across her chest. The at bedside notes that the patient's dyspnea is worsened upon exertion, and adds that she was not able to walk 50 yards without becoming significantly short of breath yesterday. The patient does complain of some abdominal pain as well. She does follow with a ict customer support officer in [place] at [facility]. Source of History: patient Onset: A couple of weeks Position: chest, abdomen Quality: other ("tightness") Timing: worsening Modifying Factors (Worsening): exertion Associated Symptoms: + SOB Review of Systems See HPI for pertinent positives & negatives. A total of 10 systems reviewed and were otherwise negative. 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) Family History Diabetes mellitus Social History Smoking Status: Never Smoker Alcohol Use: none Drug Use: none Marital Status: Housing Status: lives with family Occupation Status: employed Current/Historical Medications Scheduled Furosemide (Lasix), 40 MG PO DAILY Gabapentin (Gabapentin), 600 MG PO HS Hydroxyzine Hcl (Atarax), 10 MG PO HS Insulin Glargine (Basaglar Kwikpen), 40-45 UNITS SQ QPM Insulin Human Lispro (Humalog), 15-20 UNITS SQ AC Nadolol (Corgard), 20 MG PO HS Pantoprazole (Pantoprazole Sodium), 40 MG PO HS Ursodiol (Ursodiol), 300 MG PO AMHS [Psoriasin Gel], 1 APPLN TOP PRN Scheduled PRN Ibuprofen (Advil), 400 MG PO Q6 PRN for Headache or Pain Allergies Coded Allergies: Iodinated Diagnostic Agents (Verified Allergy, Intermediate, Sneezing and breaks out into a rash, 03/09/18) IV Dye Penicillins (Verified Allergy, Intermediate, HIVES, 03/09/18) Physical Exam Vital Signs Date Time Temp Pulse Resp B/P (MAP) Pulse Ox O2 Delivery O2 Flow Rate FiO2 03/09/18 10:45 99 Room Air 03/09/18 10:31 100/56 03/09/18 10:06 74 19 99 Room Air 03/09/18 10:01 100/55 03/09/18 09:48 72 14 100 Room Air 03/09/18 09:31 96/52 03/09/18 09:22 68 20 98/59 99 Room Air 03/09/18 09:19 71 03/09/18 09:17 98/59 03/09/18 09:00 99 Room Air 03/09/18 09:00 99 Room Air 03/09/18 08:23 36.7 72 20 103/58 99 Room Air Physical Exam GENERAL: Awake, alert, well-appearing, in no acute distress HENT: Normocephalic, atraumatic. Oropharynx unremarkable. EYES: Normal conjunctiva. Sclera non-icteric. NECK: Supple. No nuchal rigidity. FROM. No JVD. RESPIRATORY: Clear to auscultation. CARDIAC: Regular rate, normal rhythm. Extremities warm and well perfused. Pulses equal. ABDOMEN: Soft, non-distended. No tenderness to palpation. No rebound or guarding. No masses. RECTAL: Deferred. MUSCULOSKELETAL: Chest examination reveals no tenderness. The back is symmetrical on inspection without obvious abnormality. There is no CVA tenderness to palpation. No joint edema. LOWER EXTREMITIES: Calves are equal size bilaterally and non-tender. No edema. No discoloration. NEURO: Normal sensorium. No sensory or motor deficits noted. SKIN: No rash or jaundice noted. Medical Decision & Procedures ER Provider Diagnostic Interpretation: Radiology results as stated below per my review and radiologist interpretation: CHEST ONE VIEW PORTABLE CLINICAL HISTORY: Pt c/o SOB dyspnea COMPARISON STUDY: 03/03/2018 FINDINGS: Mild stable cardiomegaly. Prominence of pulmonary vasculature which is chronic in this patient. No acute process. Slight atelectasis left base at the left costophrenic angle. IMPRESSION: Chronic pulmonary vascular congestion. Mild atelectasis left base. The above report was generated using voice recognition software. It may contain grammatical, syntax or spelling errors. Electronically signed by: Farooq Esteves M.D. 03/09/2018 9:48 AM Dictated Date/Time: 03/09/2018 9:47 AM Laboratory Results Test 03/09/18 09:00 Immature Granulocyte % (Auto) 0.0 % White Blood Count 4.39 K/uL (4.8-10.8) Red Blood Count 2.73 M/uL (4.2-5.4) Hemoglobin 8.8 g/dL (12.0-16.0) Hematocrit 25.5 % (37-47) Mean Corpuscular Volume 93.4 fL (80-100) Mean Corpuscular Hemoglobin 32.2 pg (25-34) Mean Corpuscular Hemoglobin Concent 34.5 g/dl (32-36) Platelet Count 104 K/uL (130-400) Mean Platelet Volume 12.1 fL (7.4-10.4) Neutrophils (%) (Auto) 70.7 % Lymphocytes (%) (Auto) 15.9 % Monocytes (%) (Auto) 9.8 % Eosinophils (%) (Auto) 3.4 % Basophils (%) (Auto) 0.2 % Neutrophils # (Auto) 3.10 K/uL (1.4-6.5) Lymphocytes # (Auto) 0.70 K/uL (1.2-3.4) Monocytes # (Auto) 0.43 K/uL (0.11-0.59) Eosinophils # (Auto) 0.15 K/uL (0-0.5) Basophils # (Auto) 0.01 K/uL (0-0.2) Immature Granulocyte # (Auto) 0.00 K/uL (0.00-0.02) Platelet Estimate DECREASED Red Blood Cell Morphology Unremarkable Creatine Kinase MB 24.0 ng/ml (0.5-3.6) Creatine Kinase MB Ratio 0.5 (0-3.0) Pro-B-Type Natriuretic Peptide 638 pg/ml (0-900) Beta-Hydroxybutyric Acid 0.64 mg/dL (0.2-2.81) Labs reviewed by ED physician. Medications Administered Medications (Trade) Dose Ordered Sig/Purvi Route Start Time Stop Time Status Last Admin Dose Admin Albuterol Sulfate (Ventolin 0.083% 2.5MG/3ML Neb) 2.5 mg NOW STAT INH 03/09/18 08:48 03/09/18 08:50 DC 03/09/18 09:14 2.5 MG Albuterol Sulfate (Ventolin 0.083% 2.5MG/3ML Neb) 2.5 mg NOW STAT INH 03/09/18 09:36 03/09/18 09:37 DC 03/09/18 09:40 2.5 MG Sodium Chloride 500 ml @ 999 mls/hr Q31M STAT IV 03/09/18 09:40 03/09/18 10:10 DC 03/09/18 10:14 999 MLS/HR Sodium Chloride 1,000 ml @ 999 mls/hr Q1H1M STAT IV 03/09/18 10:44 03/09/18 11:44 DC 03/09/18 10:44 999 MLS/HR ECG Per My Interpretation Indication: SOB/dyspnea Rate (beats per minute): 72 Rhythm: normal sinus Findings: other (No ARIELLA/STD) ED Course 0842: Past medical records reviewed. The patient was evaluated in room A12B. A complete history and physical examination was performed. 0848: Ordered Albuterol Sulfate 2.5 mg INH. 0936: Ordered Albuterol Sulfate 2.5 mg INH. 0940: Ordered Sodium Chloride 500 mL @ 999 mL/hr IV. 1041: I discussed the case with Dr. Emily De León Hospitalist. She will evaluate the patient for further treatment. 1044: Ordered Sodium Chloride 1000 mL @ 999 mL/hr IV. Medical Decision Differential diagnosis: Etiologies such as infections, reactive airway disease, pneumonia, pneumothorax , COPD, CHF, cardiac ischemia, pulmonary embolism, musculoskeletal, gastrointestinal, as well as others were entertained. This is a 58-year-old female who presents the emergency department complaining of increasing shortness of breath. The patient has a ict customer support officer at [facility]. I will note her CK is elevated over her visit 3 days ago. I did discuss the case with the ict customer support officer at [facility] who asked that the patient be admitted to the hospital here. She was given a normal saline bolus 2. I did discuss the case with the hospitalist service who agreed to admit the patient. The patient was given breathing treatments here in the emergency department Medication Reconcilliation Current Medication List: was personally reviewed by me Blood Pressure Screening Patient's blood pressure: Low blood pressure Consults Time Called: 1034 Consulting Physician: Dr. Emily De León Hospitalist Returned Call: [phone] I discussed the case with Dr. Emily De León Hospitalist. She will evaluate the patient for further treatment. Impression Primary Impression: SOB (shortness of breath) Additional Impression: Rhabdomyolysis Scribe Attestation The scribe's documentation has been prepared under my direction and personally reviewed by me in its entirety. I confirm that the note above accurately reflects all work, treatment, procedures, and medical decision making performed by me. Departure Information Dispostion Being Evaluated By Hospitalist Referrals No Doctor, Assigned (PCP) Patient Instructions My [facility] Problem Qualifiers Additional Impression: Rhabdomyolysis Rhabdomyolysis type: non-traumatic Qualified Codes: M62.82 - Rhabdomyolysis
[2018-03-09 09:38] LABS: ALBUMIN 2.1 gm/dl (3.4-5.0); CALCIUM 8.4 mg/dl (8.5-10.1); CREATININE 1.44 mg/dl (0.60-1.20); POTASSIUM 4.7 mmol/L (3.5-5.1)
[2018-03-09] MEDS ORDERED: SODIUM CHLORIDE 0.9% 500ML 500 ML IV STA (09:40)
[2018-03-09 09:43] LABS: TOTAL PROTEIN 6.8 gm/dl (6.4-8.2)
--- NOTE | 2018-03-09 09:49 | DIAGNOSTIC IMAGING REPORT ---
CHEST ONE VIEW PORTABLE CLINICAL HISTORY: Pt c/o SOB dyspnea COMPARISON STUDY: 03/03/2018 FINDINGS: Mild stable cardiomegaly. Prominence of pulmonary vasculature which is chronic in this patient. No acute process. Slight atelectasis left base at the left costophrenic angle. IMPRESSION: Chronic pulmonary vascular congestion. Mild atelectasis left base. The above report was generated using voice recognition software. It may contain grammatical, syntax or spelling errors. Electronically signed by: Farooq Esteves M.D. 03/09/2018 9:48 AM Dictated Date/Time: 03/09/2018 9:47 AM
[2018-03-09 09:50] LABS: BASO % 0.2 %; BASO ABS # 0.01 K/uL (0-0.2); EOS % 3.4 %; EOS ABS # 0.15 K/uL (0-0.5); HEMATOCRIT 25.5 % (37-47); HEMOGLOBIN 8.8 g/dL (12.0-16.0); LYMPH % 15.9 %; MEAN CELL VOLUME 93.4 fL (80-100); MEAN CORPUSCULAR HEMOGLOBIN 32.2 pg (25-34); MEAN CORPUSCULAR HGB CONC 34.5 g/dl (32-36); MEAN PLATELET VOLUME 12.1 fL (7.4-10.4); MONO % 9.8 %; MONO ABS # 0.43 K/uL (0.11-0.59); NEUT % 70.7 %; PLATELET COUNT 104 K/uL (130-400); RED CELL DISTRIBUTION WIDTH CV 17.7 % (11.5-14.5); RED CELL DISTRIBUTION WIDTH SD 60.8 fL (36.4-46.3); WHITE BLOOD COUNT 4.39 K/uL (4.8-10.8)
[2018-03-09] MEDS ORDERED: SODIUM CHLORIDE 0.9% 1000ML 1,000 ML IV STA (10:44)
[2018-03-09] MEDS ORDERED: CARBOHYDRATES FOR HYPOGLYCEMIA PO PRN (11:30)
[2018-03-09] MEDS ORDERED: GLUCOSE 10 TABS/TUBE PO PRN (11:30)
[2018-03-09] MEDS ORDERED: NITROGLYCERIN 0.4 MG SL PER TAB CHARGE SL PRN (11:30)
[2018-03-09] MEDS ORDERED: DEXTROSE 50% 50 ML SYR IV PRN (11:30)
[2018-03-09] MEDS ORDERED: GLUCAGON FOR INJ 1 MG VIAL SQ PRN (11:30)
[2018-03-09] MEDS ORDERED: GLUCOSE 40% GEL 15 GM TUBE PO PRN (11:30)
[2018-03-09] MEDS ORDERED: POLYETHYLENE (MIRALAX) 17 GM PACK PO PRN (11:30)
--- NOTE | 2018-03-09 11:35 | DIAGNOSTIC IMAGING REPORT ---
ABDOMEN AND PELVIS CT WITHOUT CONTRAST CT DOSE: 978.74 mGycm HISTORY: Acute generalized abdominal pain with renal and liver failure Pt c/o liver, renal failure TECHNIQUE: Multiaxial CT images of the abdomen and pelvis were performed without contrast. A dose lowering technique was utilized adhering to the principles of ALARA. COMPARISON STUDY: CT abdomen and pelvis 08/05/2017. FINDINGS: Lung bases appear clear with the exception of minimal dependent subsegmental bibasilar atelectasis. Trace left pleural effusion. There is no pneumatosis or pneumoperitoneum identified. Coronary arterial calcifications are noted. The heart appears mildly enlarged. Decreased attenuation of the cardiac blood pool suggests anemia. Evaluation of the solid abdominal organs is limited without the use of IV contrast. Heterogeneous cirrhotic morphology of the liver redemonstrated. No intrahepatic biliary ductal dilation. Cholelithiasis with suggestion of gallbladder wall thickening. Calcifications are also noted near the gallbladder fundus. Spleen is enlarged, 15.6 cm. Upper abdominal varices are redemonstrated along with mild abdominal and trace pelvic ascites with mesenteric edema. The pancreas and adrenal glands appear unremarkable. Low attenuating 1.5 cm lesion of the lateral aspect interpolar left kidney suggests renal cyst. Previously noted punctate nonobstructing calculus about the right kidney is not definitively seen. No ureteral calculi or obstructive uropathy. Bladder is unremarkable. Prior hysterectomy. No adnexal mass lesions. Aorta is normal in course and caliber with mild atherosclerosis. There is no bulky adenopathy. Mildly prominent periaortic lymph nodes are likely physiologic. There is no bowel obstruction. There are several loops of jejunum within the central abdomen which demonstrate circumferential wall thickening in a mildly dilated measuring up to 3.2 cm. No transition point identified. Nondilated fluid-filled loops of ileum are also seen. Mild wall thickening is also noted involving the cecum, ascending colon and hepatic flexure. Mild generalized body wall edema. Bones appear intact. IMPRESSION: 1. Cirrhotic liver disease with stigmata of portal venous hypertension including mild abdominal and pelvic ascites. 2. Moderate wall thickening involving several loops of jejunum with additional mild to moderate wall thickening of the cecum, ascending colon and hepatic flexure. These findings may be secondary to portal enteropathy/colopathy with an infectious or inflammatory colitis and enteritis also in the differential. Correlate with clinical exam and patient history. No evidence of small bowel obstruction. 3. Cholelithiasis with mild gallbladder wall thickening, likely secondary to underlying fluid overload. 4. Suggested anemia. 5. Trace left pleural effusion with left basilar atelectasis. 6. Additional findings as above. Electronically signed by: Yoel Sanchez M.D. 03/09/2018 11:33 AM Dictated Date/Time: 03/09/2018 11:22 AM
[2018-03-09] MEDS ORDERED: PHARMACY GLYCEMIC MGMT CONSULT PRN (11:45)
[2018-03-09] MEDS ORDERED: INSULIN HUMAN REGULAR PER UNIT 4 UNITS in SYRINGE 3.96 ML IV ONE (12:00)
[2018-03-09] MEDS ORDERED: SODIUM CHLORIDE 0.9% 1000ML 1,000 ML IV SCH (12:15)
[2018-03-09] MEDS ORDERED: CIPROFLOXACIN CONSULT ACTIVE PRN (12:22)
[2018-03-09 12:25] LABS: INR 1.3 (0.9-1.1)
[2018-03-09 12:29] LABS: ALBUMIN 2.2 gm/dl (3.4-5.0); TOTAL PROTEIN 6.8 gm/dl (6.4-8.2)
--- NOTE | 2018-03-09 12:29 | History and Physical ---
History & Physical Date & Time of Service: March 09, 2018 at 12:29 Chief Complaint: Rhabdomyolitis Primary Care Physician: No Doctor, Assigned History of Present Illness Source: patient, clinic records, hospital records This is a 58yo F with a PMH of LOTT cirrhosis, anemia, DM II and other medical problems listed below who presents with worsening SOB x 1 week. Patient was seen last week in ED for increased BLE edema. Symptoms were attributed to liver disease and patient was instructed to follow up with director of public health in [place]. Over the weekend, patient became dyspneic with exertion. [place] SOB and generally weak walking across yard to visit neighbor. Does endorse weight gain in abdomen and BLE. Denies fever, chills, lightheadedness, chest pain, palpitations, abdominal pain, nausea, vomiting, dysuria, constipation or diarrhea. Bowel movements are loose and light-colored. No hematochezia or melena. Follows closely with Dr. Shah in [place] and was recently started on 40mg lasix daily. In ED, was found to have hgb of 8.8, Tbili of 3.8, AST of 271, ALT of 130, CK of 4634, BSG of 321. Tbili, liver enzymes and CK more elevated than last week. Denies any recent falls. Creatinine elevated to 1.44 today (0.8 last week). Does endorse taking 2 Advil every night recently for back pain. Troponin elevated to 0.0567. EKG without acute changes. Denies history of SD or CAD. CT abd/pelvis results pending. Contacted [facility] for recent progress notes and lab work. 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) Status: Chronic Family History Diabetes mellitus Social History Smoking Status: Never Smoker Alcohol Use: none Drug Use: none Marital Status: Housing status: lives with significant other Occupational Status: employed Immunizations History of Influenza Vaccine: Yes History of Tetanus Vaccine?: Yes History of Pneumococcal: Yes History of Hepatitis B Vaccine: No Allergies Coded Allergies: Iodinated Diagnostic Agents (Verified Allergy, Intermediate, Sneezing and breaks out into a rash, 03/09/18) IV Dye Penicillins (Verified Allergy, Intermediate, HIVES, 03/09/18) Home Medications Scheduled Furosemide (Lasix), 40 MG PO DAILY Gabapentin (Gabapentin), 600 MG PO HS Hydroxyzine Hcl (Atarax), 10 MG PO HS Insulin Glargine (Basaglar Kwikpen), 40-45 UNITS SQ QPM Insulin Human Lispro (Humalog), 15-20 UNITS SQ AC Nadolol (Corgard), 20 MG PO HS Pantoprazole (Pantoprazole Sodium), 40 MG PO HS Ursodiol (Ursodiol), 300 MG PO AMHS [Psoriasin Gel], 1 APPLN TOP PRN Scheduled PRN Ibuprofen (Advil), 400 MG PO Q6 PRN for Headache or Pain Review of Systems Ten systems reviewed and negative except as noted in the HPI. Physical Exam Vital Signs Date Time Temp Pulse Resp B/P (MAP) Pulse Ox O2 Delivery O2 Flow Rate FiO2 03/09/18 12:09 Room Air 03/09/18 12:03 36.6 77 20 106/67 (80) 100 Room Air 03/09/18 11:29 75 115/63 100 03/09/18 10:45 99 Room Air 03/09/18 10:31 100/56 03/09/18 10:06 74 19 99 Room Air 03/09/18 10:01 100/55 03/09/18 09:48 72 14 100 Room Air 03/09/18 09:31 96/52 03/09/18 09:22 68 20 98/59 99 Room Air 03/09/18 09:19 71 03/09/18 09:17 98/59 03/09/18 09:00 99 Room Air 03/09/18 09:00 99 Room Air 03/09/18 08:23 36.7 72 20 103/58 99 Room Air General Appearance: WD/WN, no apparent distress Head: normocephalic, atraumatic Eyes: normal inspection, PERRL, + pertinent finding (scleral icterus ) ENT: normal ENT inspection, hearing grossly normal, pharynx normal Neck: supple, thyroid normal, trachea midline Respiratory/Chest: chest non-tender, lungs clear, normal breath sounds, no respiratory distress, no accessory muscle use Cardiovascular: regular rate, rhythm, no murmur, normal peripheral pulses, + pertinent finding (Trace pitting edema in BLE to knee) Abdomen/GI: normal bowel sounds, soft, no organomegaly, + tenderness (TTP in RLQ. No guarding or fluid wave ) Back: normal inspection Extremities/Musculoskelatal: normal inspection, no calf tenderness, no pedal edema, non-tender Neurologic/Psych: no motor/sensory deficits, alert, normal mood/affect, oriented x 3 Skin: warm/dry, no rash, + jaundice Diagnostics Laboratory Results Results Past 24 Hours Test 03/09/18 09:00 03/09/18 11:58 03/09/18 12:07 Range/Units White Blood Count 4.39 4.8-10.8 K/uL Red Blood Count 2.73 4.2-5.4 M/uL Hemoglobin 8.8 12.0-16.0 g/dL Hematocrit 25.5 37-47 % Mean Corpuscular Volume 93.4 80-100 fL Mean Corpuscular Hemoglobin 32.2 25-34 pg Mean Corpuscular Hemoglobin Concent 34.5 32-36 g/dl Platelet Count 104 130-400 K/uL Mean Platelet Volume 12.1 7.4-10.4 fL Neutrophils (%) (Auto) 70.7 % Lymphocytes (%) (Auto) 15.9 % Monocytes (%) (Auto) 9.8 % Eosinophils (%) (Auto) 3.4 % Basophils (%) (Auto) 0.2 % Neutrophils # (Auto) 3.10 1.4-6.5 K/uL Lymphocytes # (Auto) 0.70 1.2-3.4 K/uL Monocytes # (Auto) 0.43 0.11-0.59 K/uL Eosinophils # (Auto) 0.15 0-0.5 K/uL Basophils # (Auto) 0.01 0-0.2 K/uL RDW Standard Deviation 60.8 36.4-46.3 fL RDW Coefficient of Variation 17.7 11.5-14.5 % Immature Granulocyte % (Auto) 0.0 % Immature Granulocyte # (Auto) 0.00 0.00-0.02 K/uL Platelet Estimate DECREASED Red Blood Cell Morphology Unremarkable Sodium Level 135 136-145 mmol/L Potassium Level 4.7 3.5-5.1 mmol/L Chloride Level 104 98-107 mmol/L Carbon Dioxide Level 26 21-32 mmol/L Anion Gap 6.0 3-11 mmol/L Blood Urea Nitrogen 36 7-18 mg/dl Creatinine 1.44 0.60-1.20 mg/dl Est Creatinine Clear Calc Drug Dose 39.8 ml/min Estimated GFR () 46.9 Estimated GFR (Non- 40.5 BUN/Creatinine Ratio 24.8 10-20 Random Glucose 321 70-99 mg/dl Calcium Level 8.4 8.5-10.1 mg/dl Total Bilirubin 3.9 0.2-1 mg/dl Aspartate Amino Transf (AST/SGOT) 271 15-37 U/L Alanine Aminotransferase (ALT/SGPT) 130 12-78 U/L Alkaline Phosphatase 244 45-117 U/L Total Creatine Kinase 4634 26-192 U/L Creatine Kinase MB 24.0 0.5-3.6 ng/ml Creatine Kinase MB Ratio 0.5 0-3.0 Troponin I 0.057 0-0.045 ng/ml Pro-B-Type Natriuretic Peptide 638 0-900 pg/ml Total Protein 6.8 6.4-8.2 gm/dl Albumin 2.1 3.4-5.0 gm/dl Globulin 4.7 2.5-4.0 gm/dl Albumin/Globulin Ratio 0.4 0.9-2 Beta-Hydroxybutyric Acid 0.64 0.2-2.81 mg/dL Prothrombin Time 13.4 9.0-12.0 SECONDS Prothromb Time International Ratio 1.3 0.9-1.1 Bedside Glucose 282 70-90 mg/dl Microbiology Results 03/09/18 Blood Culture, Received Pending 03/09/18 Blood Culture, Received Pending Diagnostic Radiology CXR: IMPRESSION: Chronic pulmonary vascular congestion. Mild atelectasis left base. CT abd/pelvis: IMPRESSION: 1. Cirrhotic liver disease with stigmata of portal venous hypertension including mild abdominal and pelvic ascites. 2. Moderate wall thickening involving several loops of jejunum with additional mild to moderate wall thickening of the cecum, ascending colon and hepatic flexure. These findings may be secondary to portal enteropathy/colopathy with an infectious or inflammatory colitis and enteritis also in the differential. Correlate with clinical exam and patient history. No evidence of small bowel obstruction. 3. Cholelithiasis with mild gallbladder wall thickening, likely secondary to underlying fluid overload. 4. Suggested anemia. 5. Trace left pleural effusion with left basilar atelectasis. 6. Additional findings as above. EKG Normal sinus rhythm. Low voltage QRS. Prolonged QT No change from prior EKG Impression Assessment and Plan This is a 58yo F with a PMH of LOTT cirrhosis, anemia, DM II and other medical problems listed below who presents with worsening SOB x 1 week. Decompensated LOTT cirrhosis: -Tbili, AST, ALT, alk phos lab work all increased since last week -No confusion or notable ascites on exam -CT abd/pelvis with cirrhotic liver disease with stigmata of portal venous hypertension including mild abdominal and pelvic ascites -Follows with Dr. Shah (hepatology) in [place] -Will discuss for further recommendations -Cont Ursodiol, nadolol for now -GI consulted -Abd US -Hepatic Duplex -MRCP -Consider transfer Dyspnea on exertion: -2/2 volume overload, anemia -CXR with chronic pulmonary vascular congestion -O2 saturation appropriate on room air, no SOB at rest -Echo pending -Monitor on telemetry Rhabdomyolysis: -CK of 3183 last week, 4634 today -No recent falls -Possible side effect of liver medication -Need to further discuss with director of public health -IV fluid resuscitation Acute kidney injury: -Cr of 1.44 today (0.8 last week) -Recently started lasix -Has been taking 2 ibuprofen every night for back pain -Will hold these medications -IV fluids, monitor kidney function -Nephro consulted Elevated troponin: -Trop 0.057 initially -No chest pain -No acute EKG changes -Likely 2/2 rhabdo -Trend troponin -IV fluids DM II: -BSG of 321 on arrival -A1c pending -H/o brittle diabetes -Given 4u IV insulin -Glycemic consult placed -BSG AC HS Possible enteritis/colitis: -CT abd/pelvis with moderate wall thickening throughout GI tract, may be 2/2 portal enteropathy with infectious/inflammatory nature -RLQ tenderness on exam -Cipr /flagyl for empiric coverage Anemia: -In setting of chronic liver disease -Hgb of 8.8 today (8.6 last week) -Obtaining outside labwork from PCP DVT Ppx: SCDs Code status: FULL PCP: Kaden crisostomo in [place] Dispo: Admit to telemetry. Plan to return home once medically stable. Patient seen in collaboration with Dr. Stratton. Please see addendum. ATTENDING ADDENDUM Patient seen and examined care coordinated with Susan Gagnon PA-C This is a 58-year-old medically complex female with past medical history of Lott cirrhosis, and anemia of chronic disease type 2 diabetes-follows with family practice at [facility]/and GI-director of public health Dr. Parris Shah MD at [facility] Patient was seen at [facility] ER on March 03, 2008 with complaint of worsening of lower extremity swelling dyspnea on exertion Patient was discharged with instruction to close follow-up with family physician and her director of public health Lab work on 03/03/2018: Creatinine 0.93 Hemoglobin of 8.6 -> 8.8 to day platelet count 83 which is improved today to 104 AST 200-> increased to 271 today ALT 70 increased to 130 today alkaline phosphatase remains unchanged 248 CK 3183 increased to 4634 today Patient was started on Lasix on March 04 for progressive lower extremity swelling by her family physician Today she presents with worsening of/dyspnea on exertion/increased weight gain/ increased abdominal girth/lower extremity edema Lab work as outlined above CT abdomen pelvis shows cirrhotic liver with stigmata of portal venous hypertension including mild abdominal and pelvic ascites Moderate wall thickening involving several loops of jejunum with additional mild -to-moderate wall thickening of the cecum, ascending colon and hepatic flexure. This finding could be secondary to portal enteropathy/versus infection or inflammatory colitis Doppler ultrasound of liver: FINDINGS: The visualized hepatic and portal veins are patent. There is reversal flow within the portal venous system, unchanged. The hepatic artery is patent. The IVC is also patent. Nodular contour to the visualized liver consistent with cirrhosis Lower extremity bilateral venous Doppler: Negative for DVT Physical exam: These refer to physical exam done by Susan Gagnon PA-C LOTT CIRRHOSIS/WITH WORSENING OF LFTS No evidence of hepatic encephalopathy Possible secondary to intravascular volume depletion Patient recently started with Lasix Liver ultrasound shows no evidence of portal venous thrombosis CT abdomen pelvis as above No evidence of infection/inflammation-normal lactic acid/pro calcitonin level Will discontinue antibiotics Order to repeat liver function in a.m. GI eval requested We will contact patient's director of public health at [facility] Per patient she is not yet on transplant list because of lower MELD score ELEVATED CPK History of recent fall or trauma Possible statin induced? She was on statin previously Stopped taking it since yesterday Given gentle IV hydration Follow CPK level ACUTE RENAL FAILURE: Possible secondary to intravascular volume depletion with diuretics Patient also takes NSAIDs Lasix discontinued Given gentle hydration with IV fluids Order for albumin Nephrology consult requested ANEMIA THROMBOCYTOPENIA Secondary to chronic liver disease Continue to monitor Avoid antiplatelets CODE STATUS: Full code DVT prophylaxis: Moderate to high risk Oncological anticoagulation avoided secondary to thrombocytopenia/anemia Disposition: Expected to be discharged home when medically stable PT OT evaluation requested for deconditioning Medicine follow-up with family practice at [facility] Patient's director of public health: Dr. Parris Shah [facility] Contact number: [phone] extension [phone] (GI nurse -Brent) Please refer to the documentation by Susan Gagnon PA-C for further discussion of other chronic issues Advanced Directives Existing Living Will: No Existing Power of Over The Road Driver: No Resuscitation Status VTE Prophylaxis Will order VTE Prophylaxis: Yes Reason for no VTE drug order: Contraindicated
[2018-03-09 12:38] LABS: HEMOGLOBIN A1C 10.1 % (4.5-5.6)
[2018-03-09] MEDS: INSULIN ASPART 100 UNITS/ML 3 ML PEN SC SCH ×3 (13:01→21:35)
--- NOTE | 2018-03-09 13:03 | Gastrointestinal Consultation ---
Gastrointestinal Consultation Date of Consultation: March 09, 2018 Attending Physician: Kalin Consulting Physician: Alonso Reason for Consultation: TORRES cirrhosis History of Present Illness Patient is a 58 year old female w/ history of TORRES cirrhosis following with Hepatology in [place] admitted through the ED for weakness, rhabdo - GI was asked to evaluate the patient for history of TORRES cirrhosis. No records available, history from pt and . Notes from a GI standpoint is well tolerated. No abdominal pain, no nausea, vomiting. Has history of varices denies any black/bloody stools/emesis. Had new lower extremity edema over the past week for which she was started on diuretics, unsure what type or dose. Notes decreased urinary output. No overt confusion. No fever, chills, CP, SOB. CT: Cirrhotic liver disease with stigmata of portal venous hypertension including mild abdominal and pelvic ascites. Moderate wall thickening involving several loops of jejunum with additional mild to moderate wall thickening of the cecum, ascending colon and hepatic flexure. These findings may be secondary to portal enteropathy/colopathy with an infectious or inflammatory colitis and enteritis also in the differential. Correlate with clinical exam and patient history. No evidence of small bowel obstruction. Cholelithiasis with mild gallbladder wall thickening, likely secondary to underlying fluid overload. Trace left pleural effusion with left basilar atelectasis.Additional findings as above. Past Medical/Surgical History Medical Problems: (1) Anemia Status: Acute (2) Back pain Status: Acute (3) Biliary colic Status: Acute (4) Bronchitis Status: Acute (5) Closed fracture of right proximal humerus Status: Acute (6) Fall Status: Acute (7) Fracture of proximal end of right humerus Status: Acute (8) Pharyngitis Status: Acute (9) SOB (shortness of breath) Status: Acute (10) Swelling of left extremity Status: Acute (11) Swelling of right extremity Status: Acute (12) Temporary low platelet count Status: Acute (13) UTI (urinary tract infection) Status: Acute Past Medical History: Anemia of chronic disease, Degenerative disc disease, lumbar Diabetes mellitus, type II, 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) Past Surgical History: EGD, colon Family History Diabetes mellitus Social History Smoking Status: Never Smoker Alcohol Use: none Drug Use: none Marital Status: Housing Status: lives with family Occupation Status: employed Allergies Coded Allergies: Iodinated Diagnostic Agents (Verified Allergy, Intermediate, Sneezing and breaks out into a rash, 03/09/18) IV Dye Penicillins (Verified Allergy, Intermediate, HIVES, 03/09/18) Current Medications Home Meds and Scripts Medications Dose Route/Sig Max Daily Dose Days Date Category Dose Instructions Lasix (Furosemide) 40 Mg Tab 40 Mg PO DAILY 03/09/18 Reported Advil (Ibuprofen) 200 Mg Tab 400 Mg PO Q6 PRN 03/03/18 Reported Humalog (Insulin Human Lispro) 1 Ea Inj 15-20 Units SQ AC 03/03/18 Reported PER SLIDING SCALE Basaglar Kwikpen (Insulin Glargine) 100 Unit/Ml Inj 40-45 Units SQ QPM 03/03/18 Reported Corgard (Nadolol) 20 Mg Tab 20 Mg PO HS 03/03/18 Reported [Psoriasin Gel] 1 Appln TOP PRN 03/03/18 Reported Atarax (Hydroxyzine Hcl) 10 Mg Tab 10 Mg PO HS 03/03/18 Reported INSTUCTIONS ARE TO TAKE BID PRN BUT PT TAKES EVERY HS. Pantoprazole Sodium (Pantoprazole) 40 Mg Tab 40 Mg PO HS 08/05/17 Reported TAKE THIS MEDICATION ONCE DAILY 30 MINUTES BEFORE BREAKFAST Gabapentin 300 Mg Cap 600 Mg PO HS 08/05/17 Reported Ursodiol 300 Mg Cap 300 Mg PO AMHS 10/04/16 Reported Review of Systems Constitutional: + weakness, No fever, No weight loss Respiratory: No cough, No shortness of breath Cardiac: No chest pain, No edema Abdomen: No pain, No nausea, No vomiting, No diarrhea, No constipation, No GI bleeding Skin: No rash Physical Exam Date Time Temp Pulse Resp B/P (MAP) Pulse Ox O2 Delivery O2 Flow Rate FiO2 03/09/18 12:09 Room Air 03/09/18 12:03 36.6 77 20 106/67 (80) 100 Room Air 03/09/18 11:29 75 115/63 100 03/09/18 10:45 99 Room Air 03/09/18 10:31 100/56 03/09/18 10:06 74 19 99 Room Air 03/09/18 10:01 100/55 03/09/18 09:48 72 14 100 Room Air 03/09/18 09:31 96/52 03/09/18 09:22 68 20 98/59 99 Room Air 03/09/18 09:19 71 03/09/18 09:17 98/59 03/09/18 09:00 99 Room Air 03/09/18 09:00 99 Room Air 03/09/18 08:23 36.7 72 20 103/58 99 Room Air General Appearance: no apparent distress Eyes: PERRL Neck: supple, trachea midline Respiratory/Chest: lungs clear Cardiovascular: regular rate, rhythm, no edema, no gallop, no JVD Abdomen: normal bowel sounds, non tender, soft, no organomegaly Extremities: non-tender Neurologic/Psych: alert, normal mood/affect, oriented x 3 Skin: + jaundice Laboratory Results Last 24 Hours Test 03/09/18 09:00 03/09/18 11:58 03/09/18 12:07 White Blood Count 4.39 K/uL Red Blood Count 2.73 M/uL Hemoglobin 8.8 g/dL Hematocrit 25.5 % Mean Corpuscular Volume 93.4 fL Mean Corpuscular Hemoglobin 32.2 pg Mean Corpuscular Hemoglobin Concent 34.5 g/dl Platelet Count 104 K/uL Mean Platelet Volume 12.1 fL Neutrophils (%) (Auto) 70.7 % Lymphocytes (%) (Auto) 15.9 % Monocytes (%) (Auto) 9.8 % Eosinophils (%) (Auto) 3.4 % Basophils (%) (Auto) 0.2 % Neutrophils # (Auto) 3.10 K/uL Lymphocytes # (Auto) 0.70 K/uL Monocytes # (Auto) 0.43 K/uL Eosinophils # (Auto) 0.15 K/uL Basophils # (Auto) 0.01 K/uL RDW Standard Deviation 60.8 fL RDW Coefficient of Variation 17.7 % Immature Granulocyte % (Auto) 0.0 % Immature Granulocyte # (Auto) 0.00 K/uL Platelet Estimate DECREASED Red Blood Cell Morphology Unremarkable Sodium Level 135 mmol/L Potassium Level 4.7 mmol/L Chloride Level 104 mmol/L Carbon Dioxide Level 26 mmol/L Anion Gap 6.0 mmol/L Blood Urea Nitrogen 36 mg/dl Creatinine 1.44 mg/dl Est Creatinine Clear Calc Drug Dose 39.8 ml/min Estimated GFR () 46.9 Estimated GFR (Non- 40.5 BUN/Creatinine Ratio 24.8 Random Glucose 321 mg/dl Calcium Level 8.4 mg/dl Total Bilirubin 3.8 mg/dl Direct Bilirubin 3.3 mg/dl Aspartate Amino Transf (AST/SGOT) 270 U/L Alanine Aminotransferase (ALT/SGPT) 127 U/L Alkaline Phosphatase 248 U/L Total Creatine Kinase 4634 U/L Creatine Kinase MB 24.0 ng/ml Creatine Kinase MB Ratio 0.5 Troponin I 0.057 ng/ml Pro-B-Type Natriuretic Peptide 638 pg/ml Total Protein 6.8 gm/dl Albumin 2.2 gm/dl Globulin 4.7 gm/dl Albumin/Globulin Ratio 0.4 Beta-Hydroxybutyric Acid 0.64 mg/dL Prothrombin Time 13.4 SECONDS Prothromb Time International Ratio 1.3 Bedside Glucose 282 mg/dl Estimated Average Glucose 243 mg/dl Hemoglobin A1c 10.1 % Hepatitis B Surface Antibody NEG Lactic Acid Level 1.3 mmol/L Impression Patient is a 58 year old female w/ TORRES cirrhosis complicated by esophageal varices on nadolol admitted through the ED for weakness, rhabdo. She was recently started on diuretics as an OP for edema, now w/ MADELEINE. Will need to rule out HRS. Will need to obtain records. Plan - Please get records from [facility] - Please get records from [facility] US - Hepatic Duplex - MRCP - gallstones on imaging, elevated LFTs - Urine NA - Acute hepatology - No ETOH - Less than 2G NA daily - Continue Nadolol - No overt signs of HE, she denies history of HE or use of lactulose/xifaxan in the past - Consider transfer to her established provider if decompensated form GI standpoint - GI will follow, please call with any questions or concerns I have seen and examined the patient with LUIS E Durham whose note reflects our findings and plan. Patient with known TORRES cirrhosis followed in [place], known to the transplant service there. Not actively on transplant list secondary to low MELD. I am concerned about the worsening rhabdo and renal parameters. No obvious injury. most likely worsened by recent diuretic use. She needs intravascular volume. Would benefit from albumin. Agree with renal consult. 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
[2018-03-09] MEDS ORDERED: METRONIDAZOLE CONSULT ACTIVE PRN (13:15)
[2018-03-09 13:24] LABS: HEP C IGG 13 YRS+OLDER_RFLX NEG (NEG)
[2018-03-09] MEDS ORDERED: PERFLUTREN LIPID MICROSPHERE (DEFINITY) IV ONE (13:51)
[2018-03-09] MEDS ORDERED: CIPROFLOXACIN 400MG / D5W IV SCH (14:00)
[2018-03-09] MEDS ORDERED: PNEUMOCOCCAL ADMINISTRATION CHARGE ONE (14:00)
[2018-03-09] MEDS ORDERED: PNEUMOCOCCAL POLYSACCHARIDES 25 MCG/0.5 ML VIAL/SYR IM. ONE (14:00)
--- NOTE | 2018-03-09 14:08 | Pharmacy Progress Note ---
Glycemic Control Intl Consult Date of Service March 09, 2018. Scope Glycemic Pharmacist consulted by Dr Stratton on 03/09/18 for glycemic control and to write orders per [facility] inpatient glycemic control protocol Objective Weight (Kilograms): 83.000 Accuchecks BSG (last 24hrs): Test 03/09/18 09:00 03/09/18 11:58 Random Glucose 321 mg/dl (70-99) Bedside Glucose 282 mg/dl (70-90) Laboratory Data (last 24hrs) Test 03/09/18 09:00 03/09/18 11:58 Anion Gap 6.0 mmol/L BUN/Creatinine Ratio 24.8 Blood Urea Nitrogen 36 mg/dl Creatinine 1.44 mg/dl Potassium Level 4.7 mmol/L Sodium Level 135 mmol/L White Blood Count 4.39 K/uL Red Blood Count 2.73 M/uL Hemoglobin 8.8 g/dL Hematocrit 25.5 % Mean Corpuscular Volume 93.4 fL Mean Corpuscular Hemoglobin 32.2 pg Mean Corpuscular Hemoglobin Concent 34.5 g/dl Platelet Count 104 K/uL Mean Platelet Volume 12.1 fL Neutrophils (%) (Auto) 70.7 % Lymphocytes (%) (Auto) 15.9 % Monocytes (%) (Auto) 9.8 % Eosinophils (%) (Auto) 3.4 % Basophils (%) (Auto) 0.2 % Neutrophils # (Auto) 3.10 K/uL Lymphocytes # (Auto) 0.70 K/uL Monocytes # (Auto) 0.43 K/uL Eosinophils # (Auto) 0.15 K/uL Basophils # (Auto) 0.01 K/uL Hemoglobin A1c 10.1 % HbA1c Test 03/09/18 11:58 Hemoglobin A1c 10.1 % (4.5-5.6) H Recent Pertinent Medications Outpatient Anti-diabetic Regimen: * Basaglar 40-45 units SQ qPM + humalog 15-20 units AC Risk Factors for Insulin Resistance: * Infection: cipro + flagyl * Diet: low NA, T2DM Assessment & Plan ASSESSMENT: * 58 yr old T2DM female admitted with worsening SOB and b/l LE edema, MADELEINE, rhabdo and possible enteritis/colitis. PMH significant for TORRES cirrhosis. * BSG > 300 mg/dL in the ER. Patient was administered a regular IV insulin bolus of 4 units prior to pharmacy consult. * Patient requires 85-105 units of insulin as an outpatient. A1c is ordered for tomorrow. * Will initiate Lantus per scale based on combination of home dose and weight based estimates until basal needs are better known. Will utilize weight/stress of 3 for bolus insulin parameters (of note, this is less aggressive that home usage, however insulin sensitivity may be increased due to MADELEINE). PLAN FOR INPATIENT GLYCEMIC CONTROL: * Basal insulin * Lantus per scale SQ qHS * 35 units for BSG < 140 * 45 units for BSG 140 - 180 * 55 units for BSG > 180 * Bolus Insulin * NOVOLOG per scale ACHS or Q6hrs while NPO * Goal Range: Low 120 mg/dL - High 150 mg/dL * Correction Factor: 20 mg/dL/unit * Nutritional / Prandial insulin per carb ratio of 1 unit per 6 grams CHO consumed * Add overnight check with coverage at 0000 Thank you.
--- NOTE | 2018-03-09 15:22 | DIAGNOSTIC IMAGING REPORT ---
ULTRASOUND VENOUS DOPPLER LWR EXT BILA CLINICAL HISTORY: Bilateral leg edema COMPARISON STUDY: No previous studies for comparison. FINDINGS: Real-time and color flow Doppler imaging were performed. Flow was seen within the femoral, popliteal and calf veins with no intraluminal thrombus demonstrated. The saphenous vein is patent. IMPRESSION: No evidence of lower extremity DVT. Electronically signed by: Stephane Julien M.D. 03/09/2018 3:20 PM Dictated Date/Time: 03/09/2018 3:20 PM
--- NOTE | 2018-03-09 15:36 | DIAGNOSTIC IMAGING REPORT ---
DUPLEX PORTAL HEPATIC VEINS CLINICAL HISTORY: cirrhosis, COMPARISON STUDY: Abdomen and pelvis CT 03/09/2018. Abdominal ultrasound 08/28/2017. FINDINGS: The visualized hepatic and portal veins are patent. There is reversal flow within the portal venous system, unchanged. The hepatic artery is patent. The IVC is also patent. Nodular contour to the visualized liver consistent with cirrhosis. IMPRESSION: Hepatofugal flow within the portal veins consistent with portal hypertension. Electronically signed by: Payam Norris M.D. 03/09/2018 3:34 PM Dictated Date/Time: 03/09/2018 3:31 PM
[2018-03-09] MEDS ORDERED: METRONIDAZOLE 500MG / NSS IV SCH (16:00)
--- NOTE | 2018-03-09 16:25 | ECHOCARDIOGRAM REPORT ---
*NOTICE TO RECEIVING [employer] This information is strictly Confidential and protected under [place] law. [place] law prohibits you from making any further disclosure of this information unless further disclosure is expressly permitted by the written consent of the person to whom it pertains or is authorized by law. A general authorization for the release of medical or other information is not sufficient for this purpose. Hospital accepts no responsibility if the information is made available to any other person, INCLUDING THE PATIENT. Interpretation Summary * Name: JULIOCESAR LU Study Date: 03/09/2018 12:55 PM BP: 115/63 mmHg * Patient Location: .MED\S\N275\S\2 HR: 75 * : 1960 (M/d/yyyy) Gender: Female Height: 58 in * Age: 58 yrs Ethnicity: [place] Weight: 182 lb * Ordering Physician: Amparo Stratton * Referring Physician: Self, Referred * Performed By: Milagros Ramon RDCS * * Reason For Study: Chest pain * BSA: 1.7 m2 * -- Conclusions -- * Normal LV chamber size and wall thickness. * Normal LV systolic function, EF 60-65%. * No segmental left ventricular wall motion abnormalities are noted. * Grade II diastolic dysfunction. * Mild mitral regurgitation. * Mild tricuspid regurgitation. Procedure Details * A complete two-dimensional transthoracic echocardiogram was performed (2D, M-mode, Doppler and color flow Doppler). * A contrast injection of Definity was performed to improve assessment of LV function. * Contrast was injected into an intravenous site in the right arm. * One vial of Definity ultrasound contrast was diluted in normal saline to a total volume of 10 ml. A total of '2' ml of solution was administered during imaging. * Lot # [id number] of Definity utilized for procedure. * Expiration date FEB 17. * The attending nurse who injected the contrast agent was Minoo Machado RN. Left Ventricle * The left ventricle is normal in size. * There is normal left ventricular wall thickness. * Ejection Fraction = 60-65%. * Left ventricular systolic function is normal. * No segmental left ventricular wall motion abnormalities are noted. * The left ventricular wall motion is normal. Right Ventricle * The right ventricular cavity size is normal (basal dimension <4.2 cm in right ventricular apical 4-chamber view). * The right ventricular systolic function is normal as assessed by tricuspid annular plane systolic excursion (TAPSE) (normal >1.5 cm). Atria * The left atrial size is normal. * Right atrial size is normal. * No ASD detected; PFO is not assessed. Mitral Valve * The mitral valve anatomy is normal. * There is no mitral valve stenosis. * There is mild mitral regurgitation. Tricuspid Valve * The tricuspid valve anatomy is normal. * There is no tricuspid stenosis. * There is mild tricuspid regurgitation. Aortic Valve * The aortic valve is normal in structure and function. Pulmonic Valve * The pulmonary valve is not well seen, but the Doppler examination is normal without significant regurgitation or stenosis. Great Vessels * The aortic root and proximal ascending aorta are normal sized. Pericardium/Pleural * There is no pericardial effusion. Left Ventricular Diastolic Function * Diastolic dysfunction, Grade II (pseudonormalization pattern). MMode 2D Measurements and Calculations IVSd 0.81 cm LVIDd 4.6 cm LVIDs 3.0 cm LVPWd 0.91 cm IVS/LVPW 0.89 FS 34.4 % EDV(Teich) 96.4 ml ESV(Teich) 35.1 ml EF(Teich) 63.6 % EDV(cubed) 96.2 ml ESV(cubed) 27.1 ml EF(cubed) 71.8 % LV mass(C)d 128.3 grams LV mass(C)dI 73.3 grams/m\S\2 SV(Teich) 61.3 ml SI(Teich) 35.0 ml/m\S\2 SV(cubed) 69.1 ml SI(cubed) 39.5 ml/m\S\2 Ao root diam 2.8 cm Ao root area 6.0 cm\S\2 ACS 1.7 cm LA dimension 3.3 cm asc Aorta Diam 2.3 cm LA/Ao 1.2 LVOT diam 1.7 cm LVOT area 2.2 cm\S\2 LVAd ap4 32.0 cm\S\2 LVLd ap4 7.5 cm EDV(MOD-sp4) 107.8 ml EDV(sp4-el) 115.3 ml LVAs ap4 18.0 cm\S\2 LVLs ap4 6.6 cm ESV(MOD-sp4) 41.2 ml ESV(sp4-el) 41.7 ml EF(MOD-sp4) 61.8 % EF(sp4-el) 63.8 % LVAd ap2 28.7 cm\S\2 LVLd ap2 7.1 cm EDV(MOD-sp2) 94.3 ml EDV(sp2-el) 98.7 ml LVAs ap2 15.7 cm\S\2 LVLs ap2 6.0 cm ESV(MOD-sp2) 34.7 ml ESV(sp2-el) 34.9 ml EF(MOD-sp2) 63.1 % EF(sp2-el) 64.6 % LVLd %diff -6.70 % EDV(MOD-bp) 103.3 ml LVLs %diff -9.76 % ESV(MOD-bp) 39.9 ml EF(MOD-bp) 61.4 % SV(MOD-sp4) 66.6 ml SI(MOD-sp4) 38.1 ml/m\S\2 SV(MOD-sp2) 59.5 ml SI(MOD-sp2) 34.0 ml/m\S\2 SV(MOD-bp) 63.5 ml SI(MOD-bp) 36.3 ml/m\S\2 SV(sp4-el) 73.6 ml SI(sp4-el) 42.0 ml/m\S\2 SV(sp2-el) 63.7 ml SI(sp2-el) 36.4 ml/m\S\2 Doppler Measurements and Calculations MV E max daryl 184.0 cm/sec MV A max daryl 129.3 cm/sec MV E/A 1.4 MV dec time 0.23 sec Ao V2 max 220.2 cm/sec Ao max PG 19.4 mmHg Ao max PG (full) 11.7 mmHg EMILY(V,A) 1.4 cm\S\2 EMILY(V,D) 1.4 cm\S\2 LV V1 max PG 7.7 mmHg LV V1 max 138.7 cm/sec MR max daryl 454.0 cm/sec MR max PG 82.4 mmHg MR mean daryl 345.1 cm/sec MR mean PG 54.1 mmHg MR VTI 144.6 cm PA V2 max 135.7 cm/sec PA max PG 7.4 mmHg PA acc slope 547.5 cm/sec\S\2 PA acc time 0.14 sec PI max daryl 157.5 cm/sec PI max PG 9.9 mmHg PI dec slope 385.5 cm/sec\S\2 PI P1/2t 119.6 msec TR max daryl 214.2 cm/sec PA pr(Accel) 17.2 mmHg
[2018-03-09 19:52] LABS: HEP C IGG 13 YRS+OLDER_RFLX NEG (NEG)
[2018-03-09] MEDS ORDERED: ALBUMIN 25% 50 ML with FUROSEMIDE INJ 40 MG IV ONE ×2 (20:45)
[2018-03-09] MEDS: PANTOprazole SOD 40 MG TAB PO SCH (21:33)
[2018-03-09] MEDS: hydrOXYzine HCL 10 MG TAB PO SCH (21:33)
[2018-03-09] MEDS: URSODIOL 300 MG CAP PO SCH (21:34)
[2018-03-09] MEDS: GABAPENTIN 600 MG TAB PO SCH (21:34)
[2018-03-09] MEDS: NADOLOL 40 MG TAB PO SCH (21:34)
[2018-03-09] MEDS: INSULIN GLARGINE SOLOSTAR 100 UNITS/ML 3 ML PEN SC SCH (21:39)
[2018-03-10] VITALS (17 sets, daily range): BP systolic 82–190; BP diastolic 48–90; PULSE 63–75; TEMP 36.5–37.2; O2SAT 94–100; Ht 147.3 cm; Wt 84.1 kg
[2018-03-10] MEDS ORDERED: INSULIN ASPART 100 UNITS/ML 3 ML PEN SC SCH
[2018-03-10 06:12] LABS: HEMATOCRIT 21.7 % (37-47); HEMOGLOBIN 7.5 g/dL (12.0-16.0); MEAN CELL VOLUME 93.5 fL (80-100); MEAN CORPUSCULAR HEMOGLOBIN 32.3 pg (25-34); MEAN CORPUSCULAR HGB CONC 34.6 g/dl (32-36); RED CELL DISTRIBUTION WIDTH CV 17.9 % (11.5-14.5); RED CELL DISTRIBUTION WIDTH SD 61.5 fL (36.4-46.3); WHITE BLOOD COUNT 2.59 K/uL (4.8-10.8)
[2018-03-10 06:15] LABS: MEAN PLATELET VOLUME 10.4 fL (7.4-10.4); PLATELET COUNT 67 K/uL (130-400)
[2018-03-10 06:52] LABS: CALCIUM 7.8 mg/dl (8.5-10.1); CREATININE 1.18 mg/dl (0.60-1.20)
[2018-03-10 07:05] LABS: TOTAL PROTEIN 5.7 gm/dl (6.4-8.2)
[2018-03-10] MEDS: URSODIOL 300 MG CAP PO SCH ×2 (07:56→20:52)
[2018-03-10] MEDS: INSULIN ASPART 100 UNITS/ML 3 ML PEN SC SCH ×4 (08:05→20:54)
[2018-03-10] MEDS ORDERED: PANTOprazole SOD 40 MG TAB PO SCH (09:00)
[2018-03-10] MEDS ORDERED: NADOLOL 40 MG TAB PO SCH (09:00)
--- NOTE | 2018-03-10 12:40 | Gastroenterology Progress Note ---
Progress Note Date of Service: March 10, 2018 Subjective Pt evaluation today including: conversation w/ patient, physical exam, chart review, lab review, review of studies, review of inpatient medication list Ms. Hendricks is a 58 yr old female with Torres cirrhosis managed in [place] and with [facility], who presented yesterday to the emergency department for lower leg edema. She was admitted with the CK level > 4000 (2504) today. T bili stable today at 3.9. MELD today 19. CT with cirrhosis, portal HTN moderate wall thickening of the jejunum and cecum, ascending colon and hepatic flexure, also gallstones and mild gallbladder wall thickening. No GI bleeding, no confusion, no abdominal pain. Continues with lower leg edema but believes decreasing. Review of Systems Constitutional: No fever Respiratory: No cough Cardiac: No chest pain Abdomen: No pain, No nausea, No vomiting, No diarrhea, No constipation, No GI bleeding Medications Current Inpatient Medications Medications (Trade) Dose Ordered Sig/Purvi Route Start Time Stop Time Status Last Admin Dose Admin Nitroglycerin (Nitrostat Tab) 0.4 mg UD PRN SL 03/09/18 11:30 04/08/18 11:29 Polyethylene (Miralax Powder Packet) 17 gm DAILY PRN PO 03/09/18 11:30 04/08/18 11:29 Insulin Aspart (novoLOG ASPART) SLIDING SCALE If C... ACHS SC 03/09/18 12:00 04/08/18 11:59 03/10/18 08:05 6 UNITS Glucose (Glucose 40% Gel) 15-30 GRAMS 15 GRAMS... UD PRN PO 03/09/18 11:30 04/08/18 11:29 Glucose (Glucose Chew Tab) 4-8 Tablets 4 Tabl... UD PRN PO 03/09/18 11:30 04/08/18 11:29 Dextrose (Dextrose 50% 50ML Syringe) 25-50ML 25ML FOR ... UD PRN IV 03/09/18 11:30 04/08/18 11:29 Glucagon (Glucagon Inj) 1 mg UD PRN SQ 03/09/18 11:30 04/08/18 11:29 Carbohydrates (Carbohydrates For Hypoglycemia) 15-30 GRAMS 15 grams if BSG 54-69... UD PRN PO 03/09/18 11:30 04/08/18 11:29 Miscellaneous Information (Consult Glycemic Management Pharmacy) 1 ea UD PRN N/A 03/09/18 11:45 04/08/18 11:44 Gabapentin (Neurontin Tab) 600 mg HS PO 03/09/18 21:00 04/08/18 20:59 03/09/18 21:34 600 MG Hydroxyzine HCl (Vistaril Tab) 10 mg HS PO 03/09/18 21:00 04/08/18 20:59 03/09/18 21:33 10 MG Ursodiol (Actigall Cap) 300 mg AMHS PO 03/09/18 21:00 04/08/18 20:59 03/10/18 07:56 300 MG Nadolol (Corgard Tab) 20 mg HS PO 03/09/18 21:00 04/09/18 08:59 03/09/18 21:34 20 MG Pantoprazole Sodium (Protonix Tab) 40 mg HS PO 03/09/18 21:00 04/09/18 08:59 03/09/18 21:33 40 MG Insulin Glargine (Lantus Solostar Pen) SEE PROTOCOL TEXT HS SC 03/09/18 21:00 04/08/18 20:59 03/09/18 21:39 35 UNITS Objective Vital Signs Date Time Temp Pulse Resp B/P (MAP) Pulse Ox O2 Delivery O2 Flow Rate FiO2 03/10/18 12:00 Room Air 03/10/18 11:23 36.6 69 18 92/54 (67) 100 Room Air 03/10/18 08:00 Room Air 03/10/18 07:10 36.6 67 20 95/61 (72) 100 03/10/18 05:09 () 03/10/18 04:00 36.7 72 18 95/56 (69) 98 Room Air 03/10/18 04:00 Room Air 03/10/18 00:00 Room Air 03/09/18 23:38 36.7 76 18 84/55 (65) 98 Room Air 03/09/18 20:28 36.7 76 18 109/73 (85) 97 Room Air 03/09/18 20:00 98 Room Air 03/09/18 16:05 36.6 72 18 104/66 (79) 99 Room Air 03/09/18 16:00 99 Room Air Physical Exam General Appearance: no apparent distress ENT: pharynx normal Neck: no JVD Respiratory/Chest: lungs clear Cardiovascular: regular rate, rhythm, no JVD, no murmur Abdomen: non tender, soft, + pertinent finding (small to moderate ascites) Neurologic/Psych: alert, normal mood/affect, oriented x 3 Skin: + jaundice (mild) Laboratory Results Last 24 Hours Test 03/09/18 12:45 03/09/18 16:50 03/09/18 18:05 03/09/18 19:26 Urine Color DK YELLOW Urine Appearance CLEAR Urine pH 5.0 Urine Specific [place] 1.019 Urine Protein NEG Urine Glucose (UA) 3+ Urine Ketones NEG Urine Occult Blood 2+ Urine Nitrite NEG Urine Bilirubin 1+ Urine Urobilinogen NEG Urine Leukocyte Esterase NEG Urine WBC (Auto) 1-5 /hpf Urine RBC (Auto) 0-4 /hpf Urine Hyaline Casts (Auto) 1-5 /lpf Urine Epithelial Cells (Auto) 10-20 /lpf Urine Bacteria (Auto) NEG Urine Random Sodium 11 mEq/L Bedside Glucose 97 mg/dl 139 mg/dl Troponin I 0.041 ng/ml Hepatitis B Surface Antigen NEG Hepatitis C Antibody NEG Test 03/09/18 21:15 03/09/18 23:29 03/10/18 05:12 03/10/18 06:00 Troponin I 0.043 ng/ml 0.036 ng/ml 0.027 ng/ml Bedside Glucose 123 mg/dl White Blood Count 2.59 K/uL Red Blood Count 2.32 M/uL Hemoglobin 7.5 g/dL Hematocrit 21.7 % Mean Corpuscular Volume 93.5 fL Mean Corpuscular Hemoglobin 32.3 pg Mean Corpuscular Hemoglobin Concent 34.6 g/dl RDW Standard Deviation 61.5 fL RDW Coefficient of Variation 17.9 % Platelet Count 67 K/uL Mean Platelet Volume 10.4 fL Sodium Level 139 mmol/L Potassium Level 4.0 mmol/L Chloride Level 108 mmol/L Carbon Dioxide Level 24 mmol/L Anion Gap 7.0 mmol/L Blood Urea Nitrogen 33 mg/dl Creatinine 1.18 mg/dl Est Creatinine Clear Calc Drug Dose 48.9 ml/min Estimated GFR () 59.7 Estimated GFR (Non- 51.5 BUN/Creatinine Ratio 27.5 Random Glucose 120 mg/dl Calcium Level 7.8 mg/dl Magnesium Level 2.0 mg/dl Total Bilirubin 3.8 mg/dl Direct Bilirubin 3.0 mg/dl Aspartate Amino Transf (AST/SGOT) 202 U/L Alanine Aminotransferase (ALT/SGPT) 101 U/L Alkaline Phosphatase 192 U/L Total Creatine Kinase 2504 U/L Total Protein 5.7 gm/dl Albumin 2.0 gm/dl Globulin 3.7 gm/dl Albumin/Globulin Ratio 0.5 Triglycerides Level 69 mg/dl Cholesterol Level 79 mg/dl HDL Cholesterol 9 mg/dl LDL Cholesterol, Calculated 56 mg/dl VLDL Cholesterol, Calculated 14 mg/dl Cholesterol/HDL Ratio 8.8 Lipase 269 U/L Test 03/10/18 07:29 03/10/18 11:33 Bedside Glucose 104 mg/dl 187 mg/dl Assessment and Plan Ms. Hendricks is a 58 yr old male with TORRES cirrhosis admitted with elevated CK, now improved. Plan: 1. Continue to follow CK, though as pt appears well, could be as an OP. 2. Regarding diuretic use and management of cirrhosis, would defer to [facility] and/or [facility]. Could dc w/o diuretics with close f/u or discharge on very low dose diuretics (lower than on prior to admission). 3. No GI testing recommended. GI will sign off. Please notify us if new/ worrisome GI issues.
[2018-03-10] MEDS ORDERED: ACETAMINOPHEN 325 MG TAB PO SCH (15:00)
[2018-03-10] MEDS ORDERED: FUROSEMIDE INJ 20 MG in SYRINGE 0 ML IV SCH (15:00)
--- NOTE | 2018-03-10 16:46 | Progress Note ---
Medicine Progress Note Date & Time of Visit: March 10, 2018 at 15:59. Subjective 58-year-old female with PBC cirrhosis, MGUS, diabetes type myelitis type II and psoriasis presents with worsening calf pain and lower extremity edema bilaterally. She had recently come to the ER with reports of shortness of breath and increasing weight gain with lower extremity edema and was sent home on Lasix which was a new medication from her. During that visit CK was seen to be 3500 and AST was elevated to 200 with a normal baseline. On review of the records the weight gain change was actually 3 kg since October his ER visit instead of the 30 pounds that had been allegedly reported. Today the patient did not declines any recent shortness of breath or weight gain and instead reported the bilateral lower extremity cramping with tightness of the skin. She has taken 2 doses of Lasix at home but came in because her legs felt worse yesterday to the ER. At that time her CK was elevated even higher and her aminotransferases were also increase. She was admitted for rhabdomyolysis and was given approximately 2 and half liters of normal saline for resuscitation effort for volume depletion. Her initial AK I with a creatinine 1.4 look to have resolved this morning. I discussed the case with nephrology peripherally who agrees with this. The patient does not appear to have hepatorenal syndrome she is clinically improved today reporting some residual pain but much improved since yesterday. As a result of the IV fluid resuscitation however her blood count is lower likely the result of a delusional anemia in the setting of all cell lines being down. The patient reports not having a steady PCP although she is seen at [facility]. We discussed the importance of having a stable PCP as she has multiple comorbidities that need to be monitored. As it is difficult to get her follow-up with primary care doctor at this point I think it is best to give her a couple units of irradiated blood tonight and have her follow-up with them within a week for repeat blood work. She is requiring irradiated blood as she has just started a medication called Stelara which is an injection for her psoriasis. The patient reports an interest in getting out of the hospital early tomorrow morning as it is her daughter's prom tomorrow night. She is otherwise tolerating p.o. and doing well. She denies any chest pain or other symptoms at this time. Objective Last 8 Hrs Date Time Temp Pulse Resp B/P (MAP) Pulse Ox O2 Delivery O2 Flow Rate FiO2 03/10/18 15:30 36.7 70 16 106/70 (82) 100 03/10/18 12:00 Room Air 03/10/18 11:23 36.6 69 18 92/54 (67) 100 Room Air 03/10/18 08:00 Room Air Physical Exam: GEN: obese, in no acute distress, alert and appropriate, ambulatory HEENT: NC/AT, PERRL, normal sclerae CARDIO: reg rate, S1/2 heard without m/g/r LUNGS: CTA bilaterally, no crackles, rales or wheezes, good diaphragmatic excursion ABD: soft, non-tender, non-distended, no rebound or guarding. There is tenderness on the surface right over multiple areas of ecchymosis from her insulin injections at home. EXTREMITY: RP and DP palpable 2+ bilat, no LE swelling or edema, extremities are warm and well-perfused NEURO: CN 2-12 grossly intact MUSC: 5/5 strength throughout, no gross focal deficits SKIN: warm and dry, slight jaundiced appearance. Laboratory Results: 03/10/18 06:00 03/10/18 06:00 Test 03/09/18 09:00 03/09/18 11:58 03/09/18 12:07 03/09/18 12:45 Immature Granulocyte % (Auto) 0.0 % White Blood Count 4.39 K/uL (4.8-10.8) Red Blood Count 2.73 M/uL (4.2-5.4) Hemoglobin 8.8 g/dL (12.0-16.0) Hematocrit 25.5 % (37-47) Mean Corpuscular Volume 93.4 fL (80-100) Mean Corpuscular Hemoglobin 32.2 pg (25-34) Mean Corpuscular Hemoglobin Concent 34.5 g/dl (32-36) Platelet Count 104 K/uL (130-400) Mean Platelet Volume 12.1 fL (7.4-10.4) Neutrophils (%) (Auto) 70.7 % Lymphocytes (%) (Auto) 15.9 % Monocytes (%) (Auto) 9.8 % Eosinophils (%) (Auto) 3.4 % Basophils (%) (Auto) 0.2 % Neutrophils # (Auto) 3.10 K/uL (1.4-6.5) Lymphocytes # (Auto) 0.70 K/uL (1.2-3.4) Monocytes # (Auto) 0.43 K/uL (0.11-0.59) Eosinophils # (Auto) 0.15 K/uL (0-0.5) Basophils # (Auto) 0.01 K/uL (0-0.2) Immature Granulocyte # (Auto) 0.00 K/uL (0.00-0.02) Platelet Estimate DECREASED Red Blood Cell Morphology Unremarkable Creatine Kinase MB 24.0 ng/ml (0.5-3.6) Creatine Kinase MB Ratio 0.5 (0-3.0) Pro-B-Type Natriuretic Peptide 638 pg/ml (0-900) Beta-Hydroxybutyric Acid 0.64 mg/dL (0.2-2.81) Prothrombin Time 13.4 SECONDS (9.0-12.0) Prothromb Time International Ratio 1.3 (0.9-1.1) Estimated Average Glucose 243 mg/dl Hemoglobin A1c 10.1 % (4.5-5.6) Hepatitis B Surface Antibody NEG Lactic Acid Level 1.3 mmol/L (0.4-2.0) Procalcitonin 0.21 ng/ml (0-0.5) Urine Color DK YELLOW Urine Appearance CLEAR (CLEAR) Urine pH 5.0 (4.5-7.5) Urine Specific [place] 1.019 (1.000-1.030) Urine Protein NEG (NEG) Urine Glucose (UA) 3+ (NEG) Urine Ketones NEG (NEG) Urine Occult Blood 2+ (NEG) Urine Nitrite NEG (NEG) Urine Bilirubin 1+ (NEG) Urine Urobilinogen NEG (NEG) Urine Leukocyte Esterase NEG (NEG) Urine WBC (Auto) 1-5 /hpf (0-5) Urine RBC (Auto) 0-4 /hpf (0-4) Urine Hyaline Casts (Auto) 1-5 /lpf (0-5) Urine Epithelial Cells (Auto) 10-20 /lpf (0-5) Urine Bacteria (Auto) NEG (NEG) Urine Random Sodium 11 mEq/L Test 03/09/18 18:05 03/10/18 06:00 03/10/18 16:42 Hepatitis B Surface Antigen NEG (NEG) Hepatitis C Antibody NEG (NEG) Red Blood Count 2.32 M/uL (4.2-5.4) Mean Corpuscular Volume 93.5 fL (80-100) Mean Corpuscular Hemoglobin 32.3 pg (25-34) Mean Corpuscular Hemoglobin Concent 34.6 g/dl (32-36) RDW Standard Deviation 61.5 fL (36.4-46.3) RDW Coefficient of Variation 17.9 % (11.5-14.5) Mean Platelet Volume 10.4 fL (7.4-10.4) Anion Gap 7.0 mmol/L (3-11) Est Creatinine Clear Calc Drug Dose 48.9 ml/min Estimated GFR () 59.7 Estimated GFR (Non- 51.5 BUN/Creatinine Ratio 27.5 (10-20) Calcium Level 7.8 mg/dl (8.5-10.1) Magnesium Level 2.0 mg/dl (1.8-2.4) Total Bilirubin 3.8 mg/dl (0.2-1) Direct Bilirubin 3.0 mg/dl (0-0.2) Aspartate Amino Transf (AST/SGOT) 202 U/L (15-37) Alanine Aminotransferase (ALT/SGPT) 101 U/L (12-78) Alkaline Phosphatase 192 U/L (45-117) Total Creatine Kinase 2504 U/L (26-192) Troponin I 0.027 ng/ml (0-0.045) Total Protein 5.7 gm/dl (6.4-8.2) Albumin 2.0 gm/dl (3.4-5.0) Globulin 3.7 gm/dl (2.5-4.0) Albumin/Globulin Ratio 0.5 (0.9-2) Triglycerides Level 69 mg/dl (0-150) Cholesterol Level 79 mg/dl (0-200) HDL Cholesterol 9 mg/dl LDL Cholesterol, Calculated 56 mg/dl VLDL Cholesterol, Calculated 14 mg/dl Cholesterol/HDL Ratio 8.8 Lipase 269 U/L (73-393) Bedside Glucose 192 mg/dl (70-90) Date/Time Source Procedure Growth Status 03/09/18 12:07 Blood Blood Culture Pending Received 03/10/18 06:00 03/10/18 06:00 Test 03/09/18 09:00 03/09/18 11:58 03/09/18 12:07 03/09/18 12:45 Immature Granulocyte % (Auto) 0.0 % White Blood Count 4.39 K/uL (4.8-10.8) Red Blood Count 2.73 M/uL (4.2-5.4) Hemoglobin 8.8 g/dL (12.0-16.0) Hematocrit 25.5 % (37-47) Mean Corpuscular Volume 93.4 fL (80-100) Mean Corpuscular Hemoglobin 32.2 pg (25-34) Mean Corpuscular Hemoglobin Concent 34.5 g/dl (32-36) Platelet Count 104 K/uL (130-400) Mean Platelet Volume 12.1 fL (7.4-10.4) Neutrophils (%) (Auto) 70.7 % Lymphocytes (%) (Auto) 15.9 % Monocytes (%) (Auto) 9.8 % Eosinophils (%) (Auto) 3.4 % Basophils (%) (Auto) 0.2 % Neutrophils # (Auto) 3.10 K/uL (1.4-6.5) Lymphocytes # (Auto) 0.70 K/uL (1.2-3.4) Monocytes # (Auto) 0.43 K/uL (0.11-0.59) Eosinophils # (Auto) 0.15 K/uL (0-0.5) Basophils # (Auto) 0.01 K/uL (0-0.2) Immature Granulocyte # (Auto) 0.00 K/uL (0.00-0.02) Platelet Estimate DECREASED Red Blood Cell Morphology Unremarkable Creatine Kinase MB 24.0 ng/ml (0.5-3.6) Creatine Kinase MB Ratio 0.5 (0-3.0) Pro-B-Type Natriuretic Peptide 638 pg/ml (0-900) Beta-Hydroxybutyric Acid 0.64 mg/dL (0.2-2.81) Prothrombin Time 13.4 SECONDS (9.0-12.0) Prothromb Time International Ratio 1.3 (0.9-1.1) Estimated Average Glucose 243 mg/dl Hemoglobin A1c 10.1 % (4.5-5.6) Hepatitis B Surface Antibody NEG Lactic Acid Level 1.3 mmol/L (0.4-2.0) Procalcitonin 0.21 ng/ml (0-0.5) Urine Color DK YELLOW Urine Appearance CLEAR (CLEAR) Urine pH 5.0 (4.5-7.5) Urine Specific [place] 1.019 (1.000-1.030) Urine Protein NEG (NEG) Urine Glucose (UA) 3+ (NEG) Urine Ketones NEG (NEG) Urine Occult Blood 2+ (NEG) Urine Nitrite NEG (NEG) Urine Bilirubin 1+ (NEG) Urine Urobilinogen NEG (NEG) Urine Leukocyte Esterase NEG (NEG) Urine WBC (Auto) 1-5 /hpf (0-5) Urine RBC (Auto) 0-4 /hpf (0-4) Urine Hyaline Casts (Auto) 1-5 /lpf (0-5) Urine Epithelial Cells (Auto) 10-20 /lpf (0-5) Urine Bacteria (Auto) NEG (NEG) Urine Random Sodium 11 mEq/L Test 03/09/18 18:05 03/10/18 06:00 03/10/18 11:33 Hepatitis B Surface Antigen NEG (NEG) Hepatitis C Antibody NEG (NEG) Red Blood Count 2.32 M/uL (4.2-5.4) Mean Corpuscular Volume 93.5 fL (80-100) Mean Corpuscular Hemoglobin 32.3 pg (25-34) Mean Corpuscular Hemoglobin Concent 34.6 g/dl (32-36) RDW Standard Deviation 61.5 fL (36.4-46.3) RDW Coefficient of Variation 17.9 % (11.5-14.5) Mean Platelet Volume 10.4 fL (7.4-10.4) Anion Gap 7.0 mmol/L (3-11) Est Creatinine Clear Calc Drug Dose 48.9 ml/min Estimated GFR () 59.7 Estimated GFR (Non- 51.5 BUN/Creatinine Ratio 27.5 (10-20) Calcium Level 7.8 mg/dl (8.5-10.1) Magnesium Level 2.0 mg/dl (1.8-2.4) Total Bilirubin 3.8 mg/dl (0.2-1) Direct Bilirubin 3.0 mg/dl (0-0.2) Aspartate Amino Transf (AST/SGOT) 202 U/L (15-37) Alanine Aminotransferase (ALT/SGPT) 101 U/L (12-78) Alkaline Phosphatase 192 U/L (45-117) Total Creatine Kinase 2504 U/L (26-192) Troponin I 0.027 ng/ml (0-0.045) Total Protein 5.7 gm/dl (6.4-8.2) Albumin 2.0 gm/dl (3.4-5.0) Globulin 3.7 gm/dl (2.5-4.0) Albumin/Globulin Ratio 0.5 (0.9-2) Triglycerides Level 69 mg/dl (0-150) Cholesterol Level 79 mg/dl (0-200) HDL Cholesterol 9 mg/dl LDL Cholesterol, Calculated 56 mg/dl VLDL Cholesterol, Calculated 14 mg/dl Cholesterol/HDL Ratio 8.8 Lipase 269 U/L (73-393) Bedside Glucose 187 mg/dl (70-90) Date/Time Source Procedure Growth Status 03/09/18 12:07 Blood Blood Culture Pending Received Last 24 Hours Test 03/09/18 16:50 03/09/18 18:05 03/09/18 19:26 03/09/18 21:15 Bedside Glucose 97 mg/dl 139 mg/dl Troponin I 0.041 ng/ml 0.043 ng/ml Hepatitis B Surface Antigen NEG Hepatitis C Antibody NEG Test 03/09/18 23:29 03/10/18 05:12 03/10/18 06:00 03/10/18 07:29 Troponin I 0.036 ng/ml 0.027 ng/ml Bedside Glucose 123 mg/dl 104 mg/dl White Blood Count 2.59 K/uL Red Blood Count 2.32 M/uL Hemoglobin 7.5 g/dL Hematocrit 21.7 % Mean Corpuscular Volume 93.5 fL Mean Corpuscular Hemoglobin 32.3 pg Mean Corpuscular Hemoglobin Concent 34.6 g/dl RDW Standard Deviation 61.5 fL RDW Coefficient of Variation 17.9 % Platelet Count 67 K/uL Mean Platelet Volume 10.4 fL Sodium Level 139 mmol/L Potassium Level 4.0 mmol/L Chloride Level 108 mmol/L Carbon Dioxide Level 24 mmol/L Anion Gap 7.0 mmol/L Blood Urea Nitrogen 33 mg/dl Creatinine 1.18 mg/dl Est Creatinine Clear Calc Drug Dose 48.9 ml/min Estimated GFR () 59.7 Estimated GFR (Non- 51.5 BUN/Creatinine Ratio 27.5 Random Glucose 120 mg/dl Calcium Level 7.8 mg/dl Magnesium Level 2.0 mg/dl Total Bilirubin 3.8 mg/dl Direct Bilirubin 3.0 mg/dl Aspartate Amino Transf (AST/SGOT) 202 U/L Alanine Aminotransferase (ALT/SGPT) 101 U/L Alkaline Phosphatase 192 U/L Total Creatine Kinase 2504 U/L Total Protein 5.7 gm/dl Albumin 2.0 gm/dl Globulin 3.7 gm/dl Albumin/Globulin Ratio 0.5 Triglycerides Level 69 mg/dl Cholesterol Level 79 mg/dl HDL Cholesterol 9 mg/dl LDL Cholesterol, Calculated 56 mg/dl VLDL Cholesterol, Calculated 14 mg/dl Cholesterol/HDL Ratio 8.8 Lipase 269 U/L Test 03/10/18 11:33 Bedside Glucose 187 mg/dl Assessment & Plan 58-year-old female with PBC cirrhosis, MGUS, diabetes type myelitis type II and psoriasis presents with worsening calf pain and lower extremity edema bilaterally. She had recently come to the ER with reports of shortness of breath and increasing weight gain with lower extremity edema and was sent home on Lasix which was a new medication from her. During that visit CK was seen to be 3500 and AST was elevated to 200 with a normal baseline. On review of the records the weight gain change was actually 3 kg since October his ER visit instead of the 30 pounds that had been allegedly reported. Today the patient did not declines any recent shortness of breath or weight gain and instead reported the bilateral lower extremity cramping with tightness of the skin. She has taken 2 doses of Lasix at home but came in because her legs felt worse yesterday to the ER. At that time her CK was elevated even higher and her aminotransferases were also increase. She was admitted for rhabdomyolysis and was given approximately 2 and half liters of normal saline for resuscitation effort for volume depletion. Her initial AK I with a creatinine 1.4 look to have resolved this morning. I discussed the case with nephrology peripherally who agrees with this. The patient does not appear to have hepatorenal syndrome she is clinically improved today reporting some residual pain but much improved since yesterday. As a result of the IV fluid resuscitation however her blood count is lower likely the result of a delusional anemia in the setting of all cell lines being down. The patient reports not having a steady PCP although she is seen at [facility]. We discussed the importance of having a stable PCP as she has multiple comorbidities that need to be monitored. As it is difficult to get her follow-up with primary care doctor at this point I think it is best to give her a couple units of irradiated blood tonight and have her follow-up with them within a week for repeat blood work. She is requiring irradiated blood as she has just started a medication called Stelara which is an injection for her psoriasis. The patient reports an interest in getting out of the hospital early tomorrow morning as it is her daughter's prom tomorrow night. She is otherwise tolerating p.o. and doing well. She denies any chest pain or other symptoms at this time. 1. PBC cirrhosis-compensated, known varices and portal hypertension, on nadolol and ursodiol. The patient is followed by Doctor Shah at [facility] [place]. All abnormal blood work appears to be the result of rhabdomyolysis in the setting of liver disease and volume depletion. Of note, the patient is not consistently on diuretics and was simply given Lasix for the first time in the ER a few days ago for LE swelling which is not present. Would not recommend discharging her on any diuretics at this time and would have her follow-up with [facility] within the next month. Nephrology agrees with this plan. 2. Rhabdomyolysis-the patient recently came off statins and had started this medication called Stelara. It is uncertain what else may have caused her rhabdomyolysis at this point. As we are giving blood today which will further give volume resuscitation, will hold on any more IV fluids at this point. Repeat CK in the morning to trend. 3. Elevated aminotransferases-baseline AST/ALT are normal, new labs are likely elevated secondary to rhabdomyolysis in the setting of recent statin use. They are trending down. Will trend them in the morning. 4. Dyspnea on exertion-the patient denies any shortness of breath to me at this time, however, this may have been explained by low blood counts versus rhabdomyolysis and the pain and discomfort associated with that. Although chest x-ray revealed some pulmonary vascular congestion, the patient has cirrhosis and also known diastolic dysfunction evidenced on echo this morning. No further workup is necessary at this point. Clinical reassessment of volume in the morning after blood. 5. AK I-at this point seems reasonable to assume this was prerenal azotemia secondary to dehydration in the setting of rhabdomyolysis. Initially yesterday , HRS was entertained. I discussed the case with nephrology whom at this point does not believe that is the case. AK I is resolved. Continue with plan as above. Again would not continue Lasix until patient is seen by her outpatient chaperone. 6. Elevated troponin secondary to widespread muscle breakdown in setting of rhabdomyolysis-patient denies chest pain, serial cardiac enzymes were negative overnight except for initial troponin which was mildly elevated. There were no EKG changes suggesting ischemia and no evidence of cardiac injury or wall motion abnormality on echocardiogram this morning. There were no events on telemetry overnight. Elevated troponin in this case is not indicative of acute myocardial injury. No further cardiac workup is necessary. 7. Diabetes mellitus type 2-elevated blood sugar glucose of 321 on arrival and patient was given IV insulin. Appreciate glycemic pharmacist recommendations and help with management. The blood glucose is currently at goal on insulin therapy as inpatient. 8. Anemia 2/2 dilution from IVF resuscitation-baseline H/H is 10/30. After volume resuscitation, she is 7.5/22. No active bleeding is present. Will plan to transfuse 2 units of irradiated pRBCs now and dispo to home in the morning. 9. Psoriasis-on new STelara injection therapy which is a monoclonal Ab. Patient 's chaperone suggested this may also have possibly contributed to rhabdomyolysis, however, that is not a listed side effect of this drug. Pt to follow-up with her Medical Laboratory Scientist regarding this. 10. MGUS-followed by an Oncologist at [facility]. Pt does not know the status of her MGUS. DVT proph-SCDs in setting of anemia requiring blood transfusion. Full Code Dispo-to home in am. She will need follow-up with [facility], repeat CMP, CK and CBC in one week with follow-up with her PCP. She will need to check with her Medical Laboratory Scientist on the listed side effects of Stelara prior to continuing this. she is eager to get home in the morning as early as possible for her daughter's prom tomorrow. Will try to DC in am after blood transfusion overnight. Emily Shah DO [facility] Hospitalist Patient's chaperone: Dr[facility] Parris Shah [facility] Contact number: [phone] extension [phone] (GI nurse -Brent) Consultants: Gastroenterology-Dr. Marquita Gupta Current Inpatient Medications: Current Inpatient Medications Medications (Trade) Dose Ordered Sig/Purvi Route Start Time Stop Time Status Last Admin Dose Admin Nitroglycerin (Nitrostat Tab) 0.4 mg UD PRN SL 03/09/18 11:30 04/08/18 11:29 Polyethylene (Miralax Powder Packet) 17 gm DAILY PRN PO 03/09/18 11:30 04/08/18 11:29 Insulin Aspart (novoLOG ASPART) SLIDING SCALE If C... ACHS SC 03/09/18 12:00 04/08/18 11:59 03/10/18 12:28 7 UNITS Glucose (Glucose 40% Gel) 15-30 GRAMS 15 GRAMS... UD PRN PO 03/09/18 11:30 04/08/18 11:29 Glucose (Glucose Chew Tab) 4-8 Tablets 4 Tabl... UD PRN PO 03/09/18 11:30 04/08/18 11:29 Dextrose (Dextrose 50% 50ML Syringe) 25-50ML 25ML FOR ... UD PRN IV 03/09/18 11:30 04/08/18 11:29 Glucagon (Glucagon Inj) 1 mg UD PRN SQ 03/09/18 11:30 04/08/18 11:29 Carbohydrates (Carbohydrates For Hypoglycemia) 15-30 GRAMS 15 grams if BSG 54-69... UD PRN PO 03/09/18 11:30 04/08/18 11:29 Miscellaneous Information (Consult Glycemic Management Pharmacy) 1 ea UD PRN N/A 03/09/18 11:45 04/08/18 11:44 Gabapentin (Neurontin Tab) 600 mg HS PO 03/09/18 21:00 04/08/18 20:59 03/09/18 21:34 600 MG Hydroxyzine HCl (Vistaril Tab) 10 mg HS PO 03/09/18 21:00 04/08/18 20:59 03/09/18 21:33 10 MG Ursodiol (Actigall Cap) 300 mg AMHS PO 03/09/18 21:00 04/08/18 20:59 03/10/18 07:56 300 MG Nadolol (Corgard Tab) 20 mg HS PO 03/09/18 21:00 04/09/18 08:59 03/09/18 21:34 20 MG Pantoprazole Sodium (Protonix Tab) 40 mg HS PO 03/09/18 21:00 04/09/18 08:59 03/09/18 21:33 40 MG Insulin Glargine (Lantus Solostar Pen) SEE PROTOCOL TEXT HS SC 03/09/18 21:00 04/08/18 20:59 03/09/18 21:39 35 UNITS Acetaminophen (Tylenol Tab) 650 mg TODAY@1500 PO 03/10/18 15:00 03/10/18 23:59 Diphenhydramine HCl (Benadryl Cap) 25 mg TODAY@1500 PO 03/10/18 15:00 03/10/18 23:59 Furosemide 20 mg/ Syringe 2 ml @ 4 mls/min TODAY@1500 IV 03/10/18 15:00 03/10/18 23:59
[2018-03-10] MEDS ORDERED: USTE45IN2 SC (17:26)
[2018-03-10] MEDS: PANTOprazole SOD 40 MG TAB PO SCH (20:52)
[2018-03-10] MEDS: GABAPENTIN 600 MG TAB PO SCH (20:52)
[2018-03-10] MEDS: hydrOXYzine HCL 10 MG TAB PO SCH (20:52)
[2018-03-10] MEDS: INSULIN GLARGINE SOLOSTAR 100 UNITS/ML 3 ML PEN SC SCH (20:55)
[2018-03-10] MEDS: NADOLOL 40 MG TAB PO SCH (20:56)
[2018-03-11] VITALS: O2SAT 94
[2018-03-11 00:20] VITALS: BP 96/63; PULSE 74; TEMP 36.4; O2SAT 97
[2018-03-11 04:58] LABS: HEPATITIS A IGM TC 51813E NON-REACTIVE (NON-REACTIVE); HEPATITIS B CORE IGM TC51854R NON-REACTIVE (NON-REACTIVE)
--- NOTE | 2018-03-11 06:38 | Discharge Instructions ---
Discharge Instructions Date of Service March 11, 2018. Admission Reason for Admission: Rhabdomyolitis Discharge Discharge Diagnosis / Problem: Rhabdomyolysis, elevated aminotransferases, PBC Discharge Goals Goal(s): Improve disease control, Therapeutic intervention, Prevent Disease Progression Activity Recommendations Activity Limitations: per Instructions/Follow-up section . Instructions / Follow-Up Instructions / Follow-Up Please take all medications as instructed on medication discharge list. Your diuretics have been stopped and should be discussed further with your pharm spec at [facility] if these need to be reinitiated. A follow- up appointment is recommended with him/her within 2-4 weeks from discharge. Please establish care with one consistent primary care physician to manage your multiple medical issues. Please ensure a one week follow-up with this person after discharge from the hospital for the following issues: -repeat labwork to ensure things are continuing to improve (CK, CBC, CMP) -monitoring of your diabetes and sugar numbers Please ensure you discuss the current hospitalization with your Electric Power Line Repairer and as him/her about the new Stelara drug you are on and if this may have contributed to RHABDOMYOLYSIS or muscle injury. It was a pleasure taking care of you! Call if you have any questions or problems. You can reach a [facility] hospitalist on duty at [facility] 24 hours a day by calling [phone]. Take care of yourself. Emily Shah DO [facility] Hospitalist Current Hospital Diet Patient's current hospital diet: Low Sodium Diet (2gm Na), Diabetes Type 2 Diet Discharge Diet Recommended Diet: Low Sodium Diet (2gm Na), Diabetes Type 2 Diet Procedures Procedures Performed: blood transfusion-2 units, irradiated blood Pending Studies Studies pending at discharge: yes List of pending studies: blood cultures are pending at discharge. Laboratory Results Hemoglobin A1c Test 03/09/18 11:58 Range/Units Estimated Average Glucose 243 mg/dl Hemoglobin A1c 10.1 H 4.5-5.6 % Lipid Panel Test 03/10/18 06:00 Range/Units Triglycerides Level 69 0-150 mg/dl Cholesterol Level 79 0-200 mg/dl HDL Cholesterol 9 mg/dl Cholesterol/HDL Ratio 8.8 LDL Cholesterol, Calculated 56 mg/dl Medical Emergencies . Who to Call and When: Medical Emergencies: If at any time you feel your situation is an emergency, please call 911 immediately. . Non-Emergent Contact Non-Emergency issues call your: Primary Care Provider, [employer] . . "Provider Documentation" section prepared by Emily Shah. .
[2018-03-11 06:47] LABS: HEMATOCRIT 26.6 % (37-47); HEMOGLOBIN 9.3 g/dL (12.0-16.0); MEAN CORPUSCULAR HEMOGLOBIN 32.2 pg (25-34); RED CELL DISTRIBUTION WIDTH CV 17.5 % (11.5-14.5); RED CELL DISTRIBUTION WIDTH SD 59.4 fL (36.4-46.3); WHITE BLOOD COUNT 3.37 K/uL (4.8-10.8)
[2018-03-11 06:51] LABS: PLATELET COUNT 67 K/uL (130-400)
[2018-03-11 07:21] VITALS: BP 100/63; PULSE 71; TEMP 36.8; O2SAT 97
[2018-03-11 07:40] LABS: CALCIUM 8.4 mg/dl (8.5-10.1); CREATININE 1.02 mg/dl (0.60-1.20); POTASSIUM 4.2 mmol/L (3.5-5.1); TOTAL PROTEIN 5.8 gm/dl (6.4-8.2)
[2018-03-11] MEDS: URSODIOL 300 MG CAP PO SCH (07:44)
[2018-03-11] MEDS: INSULIN ASPART 100 UNITS/ML 3 ML PEN SC SCH (07:47)
--- NOTE | 2018-03-11 07:53 | Discharge Summary ---
Discharge Summary Date of Service March 11, 2018. Discharge Summary Admission Date: March 09, 2018 at 11:01 Discharge Date: March 10, 2018 Discharge Disposition: Home Principal Diagnosis: Rhabdomyolysis Elevated LFTs PBC Procedures: None Vaccinations: Patient declines Pneumovax. Consultations: Gastroenterology-Dr. Marquita Gupta Pending Studies/Follow-Up: see instructions below. Medication Reconciliation Continued Medications: Gabapentin (Gabapentin) 300 Mg Cap 600 MG PO HS Hydroxyzine Hcl (Atarax) 10 Mg Tab 10 MG PO HS, TAB INSTUCTIONS ARE TO TAKE BID PRN BUT PT TAKES EVERY HS. Ibuprofen (Advil) 200 Mg Tab 400 MG PO Q6 PRN for Headache or Pain, TAB Insulin Glargine (Basaglar Kwikpen) 100 Unit/Ml Inj 40-45 UNITS SQ QPM Insulin Human Lispro (Humalog) 1 Ea Inj 15-20 UNITS SQ AC PER SLIDING SCALE Nadolol (Corgard) 20 Mg Tab 20 MG PO HS, TAB Pantoprazole (Pantoprazole Sodium) 40 Mg Tab 40 MG PO HS TAKE THIS MEDICATION ONCE DAILY 30 MINUTES BEFORE BREAKFAST Ursodiol (Ursodiol) 300 Mg Cap 300 MG PO AMHS Ustekinumab (Stelara) 45 Mg/0.5 Ml Inj 0 SC MONTHLY for 30 Days, #1 EA UNKNOWN DOSE [Psoriasin Gel] () 1 APPLN TOP PRN Discontinued Medications: Furosemide (Lasix) 40 Mg Tab 40 MG PO DAILY, TAB Admission Information HPI (per Admitting provider): This is a 58yo F with a PMH of TORRES cirrhosis, anemia, DM II and other medical problems listed below who presents with worsening SOB x 1 week. Patient was seen last week in ED for increased BLE edema. Symptoms were attributed to liver disease and patient was instructed to follow up with geomatics professor in [place]. Over the weekend, patient became dyspneic with exertion. [place] SOB and generally weak walking across yard to visit neighbor. Does endorse weight gain in abdomen and BLE. Denies fever, chills, lightheadedness, chest pain, palpitations, abdominal pain, nausea, vomiting, dysuria, constipation or diarrhea. Bowel movements are loose and light-colored. No hematochezia or melena. Follows closely with Dr. Shah in [place] and was recently started on 40mg lasix daily. In ED, was found to have hgb of 8.8, Tbili of 3.8, AST of 271, ALT of 130, CK of 4634, BSG of 321. Tbili, liver enzymes and CK more elevated than last week. Denies any recent falls. Creatinine elevated to 1.44 today (0.8 last week). Does endorse taking 2 Advil every night recently for back pain. Troponin elevated to 0.0567. EKG without acute changes. Denies history of WI or CAD. CT abd/pelvis results pending. Contacted [facility] for recent progress notes and lab work. Physical Exam (per Admitting): General Appearance: WD/WN, no apparent distress Head: normocephalic, atraumatic Eyes: normal inspection, PERRL, + pertinent finding (scleral icterus ) ENT: normal ENT inspection, hearing grossly normal, pharynx normal Neck: supple, thyroid normal, trachea midline Respiratory/Chest: chest non-tender, lungs clear, normal breath sounds, no respiratory distress, no accessory muscle use Cardiovascular: regular rate, rhythm, no murmur, normal peripheral pulses, + pertinent finding (Trace pitting edema in BLE to knee) Abdomen/GI: normal bowel sounds, soft, no organomegaly, + tenderness (TTP in RLQ. No guarding or fluid wave ) Back: normal inspection Extremities/Musculoskelatal: normal inspection, no calf tenderness, no pedal edema, non-tender Neurologic/Psych: no motor/sensory deficits, alert, normal mood/affect, oriented x 3 Skin: warm/dry, no rash, + jaundice Hospital Course 58-year-old female with PBC cirrhosis, MGUS, diabetes type myelitis type II and psoriasis presents with worsening calf pain and lower extremity edema bilaterally. She had recently come to the ER with reports of shortness of breath and increasing weight gain with lower extremity edema and was sent home on Lasix which was a new medication for her. During that visit CK was seen to be 3500 and AST was elevated to 200 with a normal baseline. On review of the records the weight gain change was actually 3 kg since October his ER visit instead of the 30 pounds that had been allegedly reported. On admission, the patient did not report any recent shortness of breath or weight gain, and instead reported the bilateral lower extremity cramping with tightness of the skin. She has taken 2 doses of Lasix at home that she was prescribed but came in because her legs felt worse. In the ER, CK was elevated even higher and her aminotransferases were also increased. She was admitted for rhabdomyolysis and was given approximately 2 and half liters of normal saline for resuscitation effort for volume depletion. Her initial AK I with a creatinine 1.4 resolved the following morning and no albumin was given. I discussed the case with nephrology peripherally who agrees with this. The patient does not appear to have hepatorenal syndrome she is clinically improved today reporting some residual pain but much improved since yesterday. As a result of the IV fluid resuscitation however her blood count is lower likely the result of a dilutional anemia in the setting of all cell lines being down. The patient reports not having a steady PCP although she is seen at [facility]. We discussed the importance of having a stable PCP as she has multiple comorbidities that need to be monitored. As it is difficult to get her follow- up with primary care doctor at this point she was transfused two units of irradiated blood with good response. She tolerated the blood well and on day of discharge reported an almost complete resolution of her leg discomfort and was otherwise asymptomatic. She was mentating at baseline and was ambulatory without assistance. She was hemodynamically stable and afebrile and was tolerating PO. She was discharged in stable condition with close PCP and Hepatology follow-up recommended. 1. PBC cirrhosis-compensated, known varices and portal hypertension, on nadolol and ursodiol. The patient is followed by Doctor Shah at [facility] [place]. All abnormal blood work appears to be the result of rhabdomyolysis in the setting of liver disease and volume depletion. Of note, the patient is not consistently on diuretics and was simply given Lasix for the first time in the ER a few days ago for LE swelling which is not present. Would not recommend discharging her on any diuretics at this time and would have her follow-up with [facility] hepatology within the next month. Nephrology agrees with this plan. 2. Rhabdomyolysis-the patient recently came off statins and had started this medication called Stelara. It is uncertain what else may have caused her rhabdomyolysis at this point. As we are gave blood which will further give volume resuscitation, will hold on any more IV fluids at this point. Repeat CK in the morning continued to decrease. 3. Elevated aminotransferases-baseline AST/ALT are normal, new labs are likely elevated secondary to rhabdomyolysis in the setting of recent statin use. They are trending down. F/u with PCP as outpatient in one week. 4. Dyspnea on exertion-the patient denies any shortness of breath to me at this time, however, this may have been explained by low blood counts versus rhabdomyolysis and the pain and discomfort associated with that. Although chest x-ray revealed some pulmonary vascular congestion, the patient has cirrhosis and also known diastolic dysfunction evidenced on echo. No further workup is necessary at this point. Clinical reassessment of volume in the morning after blood reveals euvolemia. 5. AK I-at this point seems reasonable to assume this was prerenal azotemia secondary to dehydration in the setting of rhabdomyolysis. Initially yesterday , HRS was entertained. I discussed this with nephrology whom at this point does not believe that is the case. AK I is resolved. Continue with plan as above. Again would not continue Lasix until patient is seen by her outpatient geomatics professor. 6. Elevated troponin secondary to widespread muscle breakdown in setting of rhabdomyolysis-patient denies chest pain, serial cardiac enzymes were negative overnight except for initial troponin which was mildly elevated. There were no EKG changes suggesting ischemia and no evidence of cardiac injury or wall motion abnormality on echocardiogram this morning. There were no events on telemetry overnight. Elevated troponin in this case is not indicative of acute myocardial injury. No further cardiac workup is necessary. 7. Diabetes mellitus type 2-elevated blood sugar glucose of 321 on arrival and patient was given IV insulin. Appreciate glycemic pharmacist recommendations and help with management. The blood glucose is currently at goal on insulin therapy as inpatient. 8. Anemia 2/2 dilution from IVF resuscitation-baseline H/H is 10/30. After volume resuscitation, she is 7.5/22. No active bleeding is present. Will plan to transfuse 2 units of irradiated pRBCs now and dispo to home in the morning. 9. Psoriasis-on new Stelara injection therapy which is a monoclonal Ab. Patient 's geomatics professor suggested this may also have possibly contributed to rhabdomyolysis, however, that is not a listed side effect of this drug. Pt to follow-up with her Brand Marketing Intern regarding this. 10. MGUS-followed by an Oncologist at [facility]. Pt does not know the status of her MGUS. DVT proph-SCDs in setting of anemia requiring blood transfusion. Full Code Dispo-to home in am in stable condition. She will need follow-up with [facility], repeat CMP, CK and CBC in one week with follow-up with her PCP. She will need to check with her Brand Marketing Intern on the listed side effects of Stelara prior to continuing this. . DO Sarthak Ivoryist Patient's geomatics professor: Dr. Parris Shah [facility] Contact number: [phone] extension [phone] (GI nurse -Brent) Total time spent on discharge = 60 minutes This includes examination of the patient, discharge planning, medication reconciliation, and communication with other providers. [place] [address] Discharge Medical Patient Name: Rhona Hendricks Unit Number: [id number] Date of : 1960 Patient Status: Admitted Inpatient Attending Doctor: Braulio Gupta MD DI: Medical v5 Discharge Instructions Date of Service March 11, 2018. Admission Reason for Admission: Rhabdomyolitis Discharge Discharge Diagnosis / Problem: Rhabdomyolysis, elevated aminotransferases, PBC Discharge Goals Goal(s): Improve disease control, Therapeutic intervention, Prevent Disease Progression Activity Recommendations Activity Limitations: per Instructions/Follow-up section . Instructions / Follow-Up Instructions / Follow-Up Please take all medications as instructed on medication discharge list. Your diuretics have been stopped and should be discussed further with your geomatics professor at [facility] if these need to be reinitiated. A follow- up appointment is recommended with him/her within 2-4 weeks from discharge. Please establish care with one consistent primary care physician to manage your multiple medical issues. Please ensure a one week follow-up with this person after discharge from the hospital for the following issues: -repeat labwork to ensure things are continuing to improve (CK, CBC, CMP) -monitoring of your diabetes and sugar numbers Please ensure you discuss the current hospitalization with your Brand Marketing Intern and as him/her about the new Stelara drug you are on and if this may have contributed to RHABDOMYOLYSIS or muscle injury. It was a pleasure taking care of you! Call if you have any questions or problems. You can reach a Sarthak hospitalist on duty at [facility] 24 hours a day by calling [phone]. Take care of yourself. Emily Shah DO [facility] Hospitalist Current Hospital Diet Patient's current hospital diet: Low Sodium Diet (2gm Na), Diabetes Type 2 Diet Discharge Diet Recommended Diet: Low Sodium Diet (2gm Na), Diabetes Type 2 Diet Procedures Procedures Performed: blood transfusion-2 units, irradiated blood Pending Studies Studies pending at discharge: yes List of pending studies: blood cultures are pending at discharge. Laboratory Results Hemoglobin A1c Test 03/09/18 11:58 Range/Units Estimated Average Glucose 243 mg/dl Hemoglobin A1c 10.1 H 4.5-5.6 % Lipid Panel Test 03/10/18 06:00 Range/Units Triglycerides Level 69 0-150 mg/dl Cholesterol Level 79 0-200 mg/dl HDL Cholesterol 9 mg/dl Cholesterol/HDL Ratio 8.8 LDL Cholesterol, Calculated 56 mg/dl Medical Emergencies . Who to Call and When: Medical Emergencies: If at any time you feel your situation is an emergency, please call 911 immediately. . Non-Emergent Contact Non-Emergency issues call your: Primary Care Provider, Engine Turner . . "Provider Documentation" section prepared by Emily Shah. . Additional Copies To Parris Shah
[2018-03-11 08:34] VITALS: BP 100/63; PULSE 71; TEMP 36.8; O2SAT 97
[2018-03-11] MEDS ORDERED: INSULIN GLARGINE SOLOSTAR 100 UNITS/ML 3 ML PEN SC SCH (21:00)
== END 2018-03-11 09:00 | disposition home or self-care (01) | DRG 442 ==
LOC: C.EDB 08:19 → C.MED 11:01 → ENRESERV 11:19
PROVIDERS: ADMIT Hospitalist; ATTEND Internal Medicine
DX: K75.81 Nonalcoholic steatohepatitis (NASH) (principal); M62.82 Rhabdomyolysis; N17.9 Acute kidney failure, unspecified; K76.6 Portal hypertension; R60.0 Localized edema; D63.8 Anemia in other chronic diseases classified elsewhere; D69.59 Other secondary thrombocytopenia; E11.9 Type 2 diabetes mellitus without complications; M79.661 Pain in right lower leg; M79.662 Pain in left lower leg; E86.9 Volume depletion, unspecified; L40.9 Psoriasis, unspecified; Z79.4 Long term (current) use of insulin; Z79.899 Other long term (current) drug therapy; Z88.0 Allergy status to penicillin; Z91.041 Radiographic dye allergy status; Z83.3 Family history of diabetes mellitus

== ENCOUNTER 2018-03-16 15:14 | Emergency (ER) | payer OTHER ==
[~2018-03-16] VITALS: Ht 147.3 cm; Wt 85.0 kg
[~2018-03-16 15:14] MED LIST changes: -ATOR-22 PO; +USTE45IN2 SC
[2018-03-16 15:20] VITALS: TEMP 36.8; Ht 147.3 cm; Wt 85.0 kg
[2018-03-16 16:28] LABS: HEMATOCRIT 29.6 % (37-47); MEAN CELL VOLUME 94.6 fL (80-100); MEAN CORPUSCULAR HEMOGLOBIN 31.9 pg (25-34); MEAN CORPUSCULAR HGB CONC 33.8 g/dl (32-36); RED CELL DISTRIBUTION WIDTH CV 18.3 % (11.5-14.5); RED CELL DISTRIBUTION WIDTH SD 63.1 fL (36.4-46.3); WHITE BLOOD COUNT 4.11 K/uL (4.8-10.8)
[2018-03-16 16:38] LABS: INR 1.3 (0.9-1.1)
[2018-03-16 16:49] LABS: MEAN PLATELET VOLUME 10.8 fL (7.4-10.4); PLATELET COUNT 86 K/uL (130-400)
[2018-03-16 16:50] LABS: BASO % 0.2 %; BASO ABS # 0.01 K/uL (0-0.2); EOS % 3.4 %; EOS ABS # 0.14 K/uL (0-0.5); LYMPH % 16.5 %; LYMPH ABS # 0.68 K/uL (1.2-3.4); MONO % 7.8 %; MONO ABS # 0.32 K/uL (0.11-0.59); NEUT % 72.1 %; NEUT ABS # 2.96 K/uL (1.4-6.5)
--- NOTE | 2018-03-16 17:03 | DIAGNOSTIC IMAGING REPORT ---
CHEST ONE VIEW PORTABLE HISTORY: Short of breath. COMPARISON: Chest 03/09/2018. FINDINGS: No pneumothorax. Small left pleural effusion and left basilar densities persist. The heart remains mildly enlarged. There is mild pulmonary basilar congestion, unchanged. IMPRESSION: 1. No change compared to the prior study. 2. Small left pleural effusion and left basilar densities persist. 3. Cardiomegaly and pulmonary congestive change. Electronically signed by: Payam Norris M.D. 03/16/2018 5:02 PM Dictated Date/Time: 03/16/2018 5:01 PM
[2018-03-16 17:52] LABS: ALKALINE PHOSPHATASE 228 U/L (45-117); ALT/SGPT 62 U/L (12-78); AST/SGOT 82 U/L (15-37); BLOOD UREA NITROGEN 11 mg/dl (7-18); CALCIUM 8.3 mg/dl (8.5-10.1); CARBON DIOXIDE 25 mmol/L (21-32); CREATININE 0.76 mg/dl (0.60-1.20); GLUCOSE 248 mg/dl (70-99); LIPASE 230 U/L (73-393); PHOSPHORUS 2.5 mg/dl (2.5-4.9); POTASSIUM 3.9 mmol/L (3.5-5.1); SODIUM 139 mmol/L (136-145); TOTAL PROTEIN 6.3 gm/dl (6.4-8.2)
[2018-03-16] MEDS ORDERED: FUROSEMIDE 40 MG/4 ML VIAL ONE (18:45)
[2018-03-16] MEDS ORDERED: FUROSEMIDE INJ 20 MG in SYRINGE 0 ML IV ONE (18:45)
--- NOTE | 2018-03-16 20:25 | EMERGENCY ROOM VISIT NOTE ---
History Report prepared by Oscar: Love Iyer Under the Supervision of: Dr. Shakira Espinosa D.O. First contact with patient: 15:39 Chief Complaint: SHORTNESS OF BREATH Stated Complaint: SOB Nursing Triage Summary: c/o SOB that started yesterday afternoon. pt was discharged on wednesday for fluid build up in her legs. History of Present Illness The patient is a 58 year old female who presents to the Emergency Room with complaints of worsening SOB starting yesterday afternoon. The patient was recently admitted to the hospital with SOB and swelling in her legs. She notes that she has not felt improved since being discharged home 5 days ago and started feeling worse yesterday. She is having a harder time breathing and has had increased swelling to her feet. Her SOB worsens with lying flat and had difficulty sleeping last night. Her stool has been like light brown gerry. She started having some cough today. She denies any fever, vomiting, diarrhea, black or blood stool, nose bleeds, hematuria, or hemoptysis. She is currently not on Lasix. She has not checked her weight. Patient with complicated medical history and capitate course during her last admission. Patient had been started on Lasix prior to admission and it was felt that this contributed to her AK I, and her Lasix was subsequently stopped and her renal function seemed to recover. Patient was transfused 2 units of blood as it was thought that her anemia could be contributing to her shortness of breath particularly with exertion. 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 Patient not currently on the transplant list but has undergone some evaluation for such. Patient says she has been compliant with all of her medications. Patient also concerned that the Stelara she has been given for her rheumatoid arthritis could potentially be affecting her breathing also. Patient has an appointment with her corrections identification technician at [place] next week. Source of History: patient Onset: yesterday afternoon Position: chest Quality: other (SOB) Timing: worsening Modifying Factors (Worsening): other (lying flat) Associated Symptoms: + cough, No fevers, No vomiting, No melena, No hematochezia, No diarrhea Note: Pt reports feet swelling, light brown gerry stool. Review of Systems See HPI for pertinent positives & negatives. A total of 10 systems reviewed and were otherwise negative. 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) Family History Diabetes mellitus Social History Smoking Status: Never Smoker Alcohol Use: none Drug Use: none Marital Status: Housing Status: lives with family Occupation Status: unemployed Current/Historical Medications Scheduled Furosemide (Lasix), 1 TAB PO DAILY Gabapentin (Gabapentin), 600 MG PO HS Hydroxyzine Hcl (Atarax), 10 MG PO HS Insulin Glargine (Basaglar Kwikpen), 40-45 UNITS SQ QPM Insulin Human Lispro (Humalog), 15-20 UNITS SQ AC Nadolol (Corgard), 20 MG PO HS Pantoprazole (Pantoprazole Sodium), 40 MG PO HS Ursodiol (Ursodiol), 300 MG PO AMHS Ustekinumab (Stelara), 0 SC MONTHLY [Psoriasin Gel], 1 APPLN TOP PRN Scheduled PRN Ibuprofen (Advil), 400 MG PO Q6 PRN for Headache or Pain Allergies Coded Allergies: Iodinated Diagnostic Agents (Verified Allergy, Intermediate, Sneezing and breaks out into a rash, 03/16/18) IV Dye Penicillins (Verified Allergy, Intermediate, HIVES, 03/16/18) Physical Exam Vital Signs Date Time Temp Pulse Resp B/P (MAP) Pulse Ox O2 Delivery O2 Flow Rate FiO2 03/16/18 20:36 88 18 131/74 99 Room Air 03/16/18 18:51 87 18 135/84 96 Room Air 03/16/18 18:29 93 Room Air 03/16/18 17:01 85 16 124/68 98 Room Air 03/16/18 16:17 88 03/16/18 15:20 36.8 90 20 132/77 98 Room Air Physical Exam GENERAL: obese, alert, well appearing, well nourished, no distress, non-toxic EYE EXAM: Mild scleral icterus. Normal conjunctiva, PERRL and EOM's grossly intact OROPHARYNX: Edentulous. No exudate, no erythema, lips, buccal mucosa, and tongue normal and mucous membranes are moist NECK: supple, no nuchal rigidity, no adenopathy, non-tender LUNGS: Lung sounds decreased, no wheezes rhonchi rales. Normal chest wall mechanics HEART: no murmurs, S1 normal and S2 normal ABDOMEN: abdomen soft, non-tender, normo-active bowel sounds, no masses, no rebound or guarding. BACK: Back is symmetrical on inspection and there is no deformity, no midline tenderness, no CVA tenderness. SKIN: Mild jaundice. No rashes and no bruising UPPER EXTREMITIES: upper extremities are grossly normal. LOWER EXTREMITIES: 1+ LE edema. NEURO EXAM: Normal sensorium, cranial nerves II-XII grossly intact, normal speech, no gross weakness of arms, no gross weakness of legs. Medical Decision & Procedures ER Provider Diagnostic Interpretation: Radiology results have been interpreted by the radiologist and reviewed by me. CHEST ONE VIEW PORTABLE HISTORY: Short of breath. COMPARISON: Chest 03/09/2018. FINDINGS: No pneumothorax. Small left pleural effusion and left basilar densities persist. The heart remains mildly enlarged. There is mild pulmonary basilar congestion, unchanged. IMPRESSION: 1. No change compared to the prior study. 2. Small left pleural effusion and left basilar densities persist. 3. Cardiomegaly and pulmonary congestive change. Electronically signed by: Payam Norris M.D. 03/16/2018 5:02 PM Dictated Date/Time: 03/16/2018 5:01 PM Laboratory Results 03/16/18 16:15 Red Blood Count 3.13, Mean Corpuscular Volume 94.6, Mean Corpuscular Hemoglobin 31.9, Mean Corpuscular Hemoglobin Concent 33.8, Mean Platelet Volume 10.8, Neutrophils (%) (Auto) 72.1, Lymphocytes (%) (Auto) 16.5, Monocytes (%) (Auto) 7.8, Eosinophils (%) (Auto) 3.4, Basophils (%) (Auto) 0.2, Neutrophils # (Auto) 2.96, Lymphocytes # (Auto) 0.68, Monocytes # (Auto) 0.32, Eosinophils # (Auto) 0.14, Basophils # (Auto) 0.01 03/16/18 16:15 Test 03/16/18 16:15 White Blood Count 4.11 K/uL (4.8-10.8) Red Blood Count 3.13 M/uL (4.2-5.4) Hemoglobin 10.0 g/dL (12.0-16.0) Hematocrit 29.6 % (37-47) Mean Corpuscular Volume 94.6 fL (80-100) Mean Corpuscular Hemoglobin 31.9 pg (25-34) Mean Corpuscular Hemoglobin Concent 33.8 g/dl (32-36) Platelet Count 86 K/uL (130-400) Mean Platelet Volume 10.8 fL (7.4-10.4) Neutrophils (%) (Auto) 72.1 % Lymphocytes (%) (Auto) 16.5 % Monocytes (%) (Auto) 7.8 % Eosinophils (%) (Auto) 3.4 % Basophils (%) (Auto) 0.2 % Neutrophils # (Auto) 2.96 K/uL (1.4-6.5) Lymphocytes # (Auto) 0.68 K/uL (1.2-3.4) Monocytes # (Auto) 0.32 K/uL (0.11-0.59) Eosinophils # (Auto) 0.14 K/uL (0-0.5) Basophils # (Auto) 0.01 K/uL (0-0.2) RDW Standard Deviation 63.1 fL (36.4-46.3) RDW Coefficient of Variation 18.3 % (11.5-14.5) Immature Granulocyte % (Auto) 0.0 % Immature Granulocyte # (Auto) 0.00 K/uL (0.00-0.02) Prothrombin Time 13.5 SECONDS (9.0-12.0) Prothromb Time International Ratio 1.3 (0.9-1.1) Anion Gap 6.0 mmol/L (3-11) Est Creatinine Clear Calc Drug Dose 76.4 ml/min Estimated GFR () 101.6 Estimated GFR (Non- 87.7 BUN/Creatinine Ratio 14.1 (10-20) Calcium Level 8.3 mg/dl (8.5-10.1) Phosphorus Level 2.5 mg/dl (2.5-4.9) Magnesium Level 1.8 mg/dl (1.8-2.4) Total Bilirubin 5.1 mg/dl (0.2-1) Aspartate Amino Transf (AST/SGOT) 82 U/L (15-37) Alanine Aminotransferase (ALT/SGPT) 62 U/L (12-78) Alkaline Phosphatase 228 U/L (45-117) Total Creatine Kinase 126 U/L (26-192) Troponin I < 0.015 ng/ml (0-0.045) Pro-B-Type Natriuretic Peptide 344 pg/ml (0-900) Total Protein 6.3 gm/dl (6.4-8.2) Albumin 2.0 gm/dl (3.4-5.0) Globulin 4.3 gm/dl (2.5-4.0) Albumin/Globulin Ratio 0.5 (0.9-2) Lipase 230 U/L (73-393) Laboratory results per my review. Medications Administered Medications (Trade) Dose Ordered Sig/Purvi Route Start Time Stop Time Status Last Admin Dose Admin Furosemide 20 mg/ Syringe 2 ml @ 4 mls/min ONE ONCE IV 03/16/18 18:45 03/16/18 18:46 DC 03/16/18 18:48 4 MLS/MIN ECG Per My Interpretation Indication: SOB/dyspnea Rate (beats per minute): 86 Rhythm: sinus rhythm Findings: Q waves (aVF, V3), no acute ischemic change, left axis deviation, other (normal intervals, low voltage throughout) ED Course 154: The patient was evaluated in room A2. A complete history and physical exam was performed. 1753: I reevaluated the patient. I updated her on the results. 1829: I discussed the [facility] 20 IV Lasix and reassessment. If she does not feel better, she will evaluate for admission. 1844: Lasix Inj 20 mg IV. 1914: I discussed the patient's case with Dr. Campuzano, [facility]. We are in agreement with the plan. 2014: I reevaluated the patient. Patient states she is not feeling improved. I discussed evaluation for admission. Pt would prefer to go home if the numbers are reassuring. She is agreeable to close follow up with liver specialist and family doctor. I discussed the use of Lasix, possible reactions and side effects to watch and return for. She verbalized agreement of the treatment plan. She was discharged home. Medical Decision Differential diagnoses includes but is not limited to pneumonia, bronchitis, COPD/Asthma exacerbation, pneumothorax, pulmonary embolism, congestive heart failure, acute coronary syndrome On recheck the patient's labs here today, labs improved and/or reassuring with the exception of her bilirubin which is increased compared to that of discharge. I do not suspect occult infectious etiology, no evidence of worsening effusion, I do not suspect PE, ACS, no evidence of congestive heart failure as exhalation for patient's dyspnea on exertion. Renal function has returned to normal, CPK has returned to normal, no elevated troponin. EKG unremarkable. Patient aware of all of her results as well as my discussion with the GI doctor who called back from [facility] and my [facility] a [facility] of lower dose Lasix. Patient did have some diuresis while monitored here, but had not noticed significant improvement yet. Patient offered additional evaluation by the hospitalist for admission, she refused. Patient states if her numbers are good she would like to go home and follow-up as an outpatient. I asked case management to help assure close follow-up with her PCP as an outpatient as patient stated she has had some difficulty getting follow-up appointments. When I discussed patient with the GI doctor from [facility], they advised that they will refer her name and call her tomorrow to schedule close follow-up also. Patient ambulating here with a steady gait, no significantly increased work of breathing during ambulation and patient not hypoxic on ambulation. Discussed with patient symptoms to watch and return for, she verbalized understanding was agreeable with plan. Medication Reconcilliation Current Medication List: was personally reviewed by me Blood Pressure Screening Patient's blood pressure: Normal blood pressure Consults Time Called: 182 Consulting Physician: Dr. Stratton, [facility] Returned Call: 1830 I discussed the patient's case with her. She recommends 20 IV Lasix and reassessment. If she does not feel better, she will evaluate for admission. Additional Consults: Time Called: 175 Consulted Physician: Dr. Campuzano, [facility] Returned Call: [phone] Additional Comments: I discussed the patient's case with her. We are in agreement with the plan. Impression Primary Impression: Dyspnea Additional Impressions: 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) Anemia Thrombocytopenia Hyperbilirubinemia Scribe Attestation The scribe's documentation has been prepared under my direction and personally reviewed by me in its entirety. I confirm that the note above accurately reflects all work, treatment, procedures, and medical decision making performed by me. Departure Information Dispostion Home / Self-Care Prescriptions Furosemide (LASIX) 20 Mg Tab 1 TAB PO DAILY, #10 TAB 1 Refill Prov: Shakira Espinosa, 03/16/18 Referrals No Doctor, Assigned (PCP) Patient Instructions My [facility] Additional Instructions Please follow-up with your liver specialist as well as your regular doctor. Please have them continue to closely monitor all of your blood work as a precaution. Please continue your regular medications as prescribed. If you feel that the small dose of Lasix you were given today has helped, you may take an additional small dose tomorrow. If you are tolerating this well you may continue taking this once a day. Please discuss this with your family doctor and have them recheck your kidney numbers as a precaution next week. As continued use of this can sometimes place stress on your kidneys. You may otherwise continue your usual diet and activity. If you have any worsening symptoms or new concerns, please return the emergency room. Problem Qualifiers Primary Impression: Dyspnea Dyspnea type: dyspnea on exertion Qualified Codes: R06.09 - Other forms of dyspnea Additional Impressions: Anemia Anemia type: unspecified type Qualified Codes: D64.9 - Anemia, unspecified
[2018-03-16] MEDS ORDERED: FURO20TA PO (20:26)
[2018-03-16 20:36] VITALS: BP 131/74; PULSE 88; O2SAT 99
== END 2018-03-16 20:37 | disposition home or self-care (01) ==
LOC: C.EDB 15:15 → C.EDA 20:37
DX: R06.09 Other forms of dyspnea (principal); D64.9 Anemia, unspecified; K74.60 Unspecified cirrhosis of liver; K75.81 Nonalcoholic steatohepatitis (NASH); D69.6 Thrombocytopenia, unspecified; M06.9 Rheumatoid arthritis, unspecified; E11.9 Type 2 diabetes mellitus without complications; Z83.3 Family history of diabetes mellitus; Z79.899 Other long term (current) drug therapy; Z88.0 Allergy status to penicillin; Z91.041 Radiographic dye allergy status

== ENCOUNTER → 2018-05-19 | Outpatient (CLI) | payer OTHER ==
[~2018-05-19] MED LIST changes: +CRG40 PO; +ECRCR EXT; +FURO-85 PO; -IBUP-1050 PO; -NADO20TA PO; +QSTP PO; +SPIR25TA PO; +ULT/50 PO; +[UNRECOGNIZED DRUG - CODE]; -[UNRECOGNIZED DRUG - OTHER] TOP
[2018-05-19 13:30] LABS: HEMATOCRIT 27.8 % (37-47); HEMOGLOBIN 9.7 g/dL (12.0-16.0); MEAN CELL VOLUME 98.6 fL (80-100); MEAN CORPUSCULAR HEMOGLOBIN 34.4 pg (25-34); MEAN CORPUSCULAR HGB CONC 34.9 g/dl (32-36); RED CELL DISTRIBUTION WIDTH SD 53.9 fL (36.4-46.3); WHITE BLOOD COUNT 3.68 K/uL (4.8-10.8)
[2018-05-19 13:32] LABS: INR 1.2 (0.9-1.1)
[2018-05-19 14:02] LABS: MEAN PLATELET VOLUME 11.6 fL (7.4-10.4); PLATELET COUNT 90 K/uL (130-400)
[2018-05-19 14:03] LABS: BASO % 0.5 %; BASO ABS # 0.02 K/uL (0-0.2); EOS % 1.9 %; EOS ABS # 0.07 K/uL (0-0.5); IG# 0.01 K/uL (0.00-0.02); LYMPH % 21.7 %; MONO % 8.2 %; NEUT % 67.4 %; NEUT ABS # 2.48 K/uL (1.4-6.5)
[2018-05-19 14:34] LABS: ALBUMIN 2.5 gm/dl (3.4-5.0); ALKALINE PHOSPHATASE 177 U/L (45-117); ALT/SGPT 34 U/L (12-78); AST/SGOT 51 U/L (15-37); BLOOD UREA NITROGEN 26 mg/dl (7-18); CALCIUM 9.1 mg/dl (8.5-10.1); CARBON DIOXIDE 22 mmol/L (21-32); CREATININE 0.92 mg/dl (0.60-1.20); GLUCOSE 122 mg/dl (70-99); POTASSIUM 4.5 mmol/L (3.5-5.1); SODIUM 137 mmol/L (136-145); TOTAL PROTEIN 7.5 gm/dl (6.4-8.2)
== END | disposition home or self-care (01) ==
LOC: C.LABPBG 09:15
PROVIDERS: ATTEND Internal Medicine
DX: Z01.812 Encounter for preprocedural laboratory examination (principal); K74.3 Primary biliary cirrhosis

== ENCOUNTER → 2018-06-01 | Outpatient (CLI) | payer OTHER ==
--- NOTE | 2018-06-06 15:10 | MAMMOGRAPHY REPORT ---
BILATERAL DIGITAL SCREENING MAMMOGRAM TOMOSYNTHESIS WITH CAD: 06/01/2018 CLINICAL HISTORY: Routine screening. Patient has no complaints. TECHNIQUE: The study was acquired using full field digital technology and interpreted from soft copy. Breast tomosynthesis in addition to standard 2D mammography was performed. Current study was also ev aluated with a Computer Aided Detection (CAD) system. COMPARISON: No prior exams were available for comparison. BREAST COMPOSITION: There are scattered areas of fibroglandular density in both breasts. FINDINGS: No suspicious mass, architectural distortion or cluster of microcalcifications is seen. IMPRESSION: ACR BI-RADS CATEGORY 1: NEGATIVE There is no mammographic evidence of malignancy. Prior outside mammograms are currently being reques [email or web address] and if obtained they will be reviewed, compared to the current exam to assess for any more subtle changes, and an addendum will be made to this report. Otherwise, a 1 year screening mammogram is re commended. The patient will receive written notification of the results. Some breast cancers are not detected with mammography. A negative mammographic report should not ancelmo y biopsy if a clinically suggestive mass is present. Jessica Salter M.D. ay/:06/06/2018 14:48:51 Handling Tech: Janet Ochoa, [facility] letter sent: Normal 1/2 BI-RADS Code: ACR BI-RADS Category 1: Negative
== END | disposition home or self-care (01) ==
LOC: C.MAMM 14:18
PROVIDERS: ATTEND Physician Assistant
DX: Z12.31 Encounter for screening mammogram for malignant neoplasm of breast (principal)

== ENCOUNTER 2018-06-21 20:53 | Emergency (ER) | payer OTHER ==
[~2018-06-21] VITALS: Ht 147.3 cm; Wt 74.8 kg
[~2018-06-21 20:53] MED LIST changes: -ACT300 PO; -PANT40TA2 PO; -[UNRECOGNIZED DRUG - CODE]; +[UNRECOGNIZED DRUG - CODE] PO
[2018-06-21] MEDS ORDERED: ACT300 PO (21:06)
[2018-06-21 21:08] VITALS: TEMP 36.2; Ht 147.3 cm; Wt 74.8 kg
--- NOTE | 2018-06-21 22:09 | EMERGENCY ROOM VISIT NOTE ---
History Report prepared by Oscar: Reva Santiago Under the Supervision of: Dr. Terry Zelaya M.D. First contact with patient: 21:55 Chief Complaint: HYPOGLYCEMIA Stated Complaint: HYPOGLYCEMIA Nursing Triage Summary: Pt took reg insulin 20 units @ 1730 anticipating eating supper. Pt never ate and @ 1930 pt was founf on toilet and was lethergic. EMS arrived and took her BSG and it was 38. Pt was given D10 250 mg and BSG was 308. Pt arrives to ED responsive and drowsey. History of Present Illness The patient is a 58 year old female who presents to the Emergency Room by ambulance with complaints of low blood sugar prior to arrival. The patient's states that this is the second time in two weeks that her sugar has gone very low. The patient states that she has been constipated and at dinner she went to the bathroom. She states that she suddenly could not breathe. She states that she currently feels sluggish. Per the patient's family, the patient has been feeling sluggish the past few days. The patient states that she hasn't slept well the past couple of nights and has to nap frequently throughout the day. The patient states that she feels nauseous, but denies vomiting or having fevers. The patient's family states that they were in [place] to see the patient's doctor for her liver condition and the patient was nervous to adjust her sugar without seeing her doctor. Source of History: patient, family Onset: prior to arrival Position: other (generalized ) Quality: other (low blood sugar ) Associated Symptoms: + nausea, No fevers, No vomiting Review of Systems See HPI for pertinent positives and negatives. A total of ten systems were reviewed and were otherwise negative. 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) (8) Varices, esophageal Family History Diabetes mellitus Social History Smoking Status: Never Smoker Alcohol Use: none Drug Use: none Marital Status: Housing Status: lives with family Occupation Status: unemployed Current/Historical Medications Scheduled Amitriptyline Hcl (Elavil), 25 MG PO HS Cholestyramine (Bulk) (Cholestyramine), 1 PKT PO BID Furosemide (Lasix), 40 MG PO DAILY Gabapentin (Gabapentin), 600 MG PO HS Insulin Glargine (Basaglar Kwikpen), 40 UNITS SQ QPM Insulin Human Lispro (Humalog), 10-15 UNITS SQ AC Nadolol (Corgard), 20 MG PO DAILY Pantoprazole (Pantoprazole Sodium), 40 MG PO HS Spironolactone (Aldactone), 25 MG PO DAILY Ursodiol (Ursodiol), 300 MG PO AMHS Ursodiol (Ursodiol), 250 MG PO BID Ustekinumab (Stelara), 0 SC [id number] Scheduled PRN Eucerin (Hydrocerin), 1 APPLN EXT BID PRN for pruritis Hydroxyzine Hcl (Atarax), 25 MG PO Q6H PRN for Itching Tramadol Hcl (Ultram), 50-100 MG PO Q6 PRN for Pain Allergies Coded Allergies: Iodinated Diagnostic Agents (Verified Allergy, Intermediate, Sneezing and breaks out into a rash, 04/15/18) IV Dye Penicillins (Verified Allergy, Intermediate, HIVES, 04/15/18) Physical Exam Vital Signs Date Time Temp Pulse Resp B/P (MAP) Pulse Ox O2 Delivery O2 Flow Rate FiO2 06/22/18 00:16 69 17 100/66 100 06/21/18 22:37 64 18 120/72 99 Room Air 06/21/18 21:08 36.2 66 18 120/72 100 Room Air 06/21/18 21:07 67 Physical Exam GENERAL: Awake, alert, in no distress. Chronically ill. Fatigued in appearance HENT: Normocephalic, atraumatic. Oropharynx unremarkable. EYES: Normal conjunctiva. Slight icterus. NECK: Supple. No nuchal rigidity. RESPIRATORY: Clear to auscultation. No wheezes. Normal respiratory effort. CARDIAC: Normal rate. Normal rhythm. Extremities warm and well perfused. GI: Soft, non-distended. No tenderness to palpation. No rebound or guarding. RECTAL: Deferred. MUSCULOSKELETAL: Atraumatic. Chest examination reveals no tenderness. LOWER EXTREMITIES: Calves are equal size bilaterally and non-tender. No edema NEURO: Normal sensorium. No sensory or motor deficits noted. No facial droop. SKIN: Warm and dry. No rash or jaundice noted. Medical Decision & Procedures ER Provider Diagnostic Interpretation: Radiology results as stated below per my review and radiologist interpretation: SINGLE VIEW CHEST CLINICAL HISTORY: Generalized abdominal pain. FINDINGS: An AP, portable, upright chest radiograph is compared to study dated 03/30/2018. The heart is top normal for projection and there is atherosclerotic calcification of the thoracic aorta. The pulmonary vasculature is noncongested. Chronic interstitial thickening is unchanged. Bibasilar atelectasis is noted. No airspace consolidation, large pleural effusion, or pneumothorax is seen. The skeletal structures are osteopenic. There is chronic posttraumatic deformity of the right proximal humerus. There is a healed right-sided rib fracture. IMPRESSION: No acute cardiopulmonary abnormality. Electronically signed by: Adrián Deutsch M.D. 06/21/2018 10:14 PM Dictated Date/Time: 06/21/2018 10:13 PM Laboratory Results 06/21/18 22:27 Red Blood Count 3.07, Mean Corpuscular Volume 99.0, Mean Corpuscular Hemoglobin 36.2, Mean Corpuscular Hemoglobin Concent 36.5, Mean Platelet Volume 10.8, Neutrophils (%) (Auto) 77.8, Lymphocytes (%) (Auto) 12.7, Monocytes (%) (Auto) 7.5, Eosinophils (%) (Auto) 1.2, Basophils (%) (Auto) 0.1, Neutrophils # (Auto) 6.41, Lymphocytes # (Auto) 1.05, Monocytes # (Auto) 0.62, Eosinophils # (Auto) 0.10, Basophils # (Auto) 0.01 06/21/18 22:27 Test 06/21/18 22:27 06/21/18 23:18 White Blood Count 8.25 K/uL (4.8-10.8) Red Blood Count 3.07 M/uL (4.2-5.4) Hemoglobin 11.1 g/dL (12.0-16.0) Hematocrit 30.4 % (37-47) Mean Corpuscular Volume 99.0 fL (80-100) Mean Corpuscular Hemoglobin 36.2 pg (25-34) Mean Corpuscular Hemoglobin Concent 36.5 g/dl (32-36) Platelet Count 121 K/uL (130-400) Mean Platelet Volume 10.8 fL (7.4-10.4) Neutrophils (%) (Auto) 77.8 % Lymphocytes (%) (Auto) 12.7 % Monocytes (%) (Auto) 7.5 % Eosinophils (%) (Auto) 1.2 % Basophils (%) (Auto) 0.1 % Neutrophils # (Auto) 6.41 K/uL (1.4-6.5) Lymphocytes # (Auto) 1.05 K/uL (1.2-3.4) Monocytes # (Auto) 0.62 K/uL (0.11-0.59) Eosinophils # (Auto) 0.10 K/uL (0-0.5) Basophils # (Auto) 0.01 K/uL (0-0.2) RDW Standard Deviation 58.5 fL (36.4-46.3) RDW Coefficient of Variation 16.3 % (11.5-14.5) Immature Granulocyte % (Auto) 0.7 % Immature Granulocyte # (Auto) 0.06 K/uL (0.00-0.02) Prothrombin Time 11.8 SECONDS (9.0-12.0) Prothromb Time International Ratio 1.1 (0.9-1.1) Activated Partial Thromboplast Time 26.9 SECONDS (21.0-31.0) Partial Thromboplastin Ratio 1.0 Anion Gap 10.0 mmol/L (3-11) Est Creatinine Clear Calc Drug Dose 44.6 ml/min Estimated GFR () 57.9 Estimated GFR (Non- 50.0 BUN/Creatinine Ratio 31.9 (10-20) Calcium Level 9.4 mg/dl (8.5-10.1) Magnesium Level 2.0 mg/dl (1.8-2.4) Total Bilirubin 4.6 mg/dl (0.2-1) Direct Bilirubin 3.6 mg/dl (0-0.2) Aspartate Amino Transf (AST/SGOT) 76 U/L (15-37) Alanine Aminotransferase (ALT/SGPT) 53 U/L (12-78) Alkaline Phosphatase 216 U/L (45-117) Troponin I < 0.015 ng/ml (0-0.045) Total Protein 7.7 gm/dl (6.4-8.2) Albumin 2.5 gm/dl (3.4-5.0) Lipase 406 U/L (73-393) Bedside Glucose 133 mg/dl (70-90) Laboratory results reviewed by me ECG Per My Interpretation Indication: weakness Rate (beats per minute): 66 Rhythm: normal sinus Findings: T-wave inversion (lead III), other (no ST elevation, prolonged QT) Comparison ECG Date: 03/30/2018 Change: no significant change ED Course 2155: The patient was evaluated in room A12B. A complete history and physical exam was performed. 2359: The patient ate and is currently feeling better. 0003: I reevaluated the patient. Discussed results and discharge instructions: She verbalized understanding and agreement. The patient is ready for discharge. Medical Decision Differential diagnosis: Etiologies such as metabolic, infection, hypo/hyperglycemia, electrolyte abnormalities, cardiac sources, intracerebral event, toxicologic, neurologic, as well as others were entertained. Patient presents after episode of hypoglycemia. Is dealing with liver dysfunction/PBC currently followed at [facility] for this. Evidently he is little more fatigued over the last several days with episode of hypoglycemia this evening. Took her insulin and went to the bathroom and lost track of time and was found altered there. Blood glucose in the high 30s. Given glucose with EMS with an improvement in mental status. Still feeling somewhat sleepy. Also endorses some insomnia symptoms over the last several days. Denies significant pain or focal numbness or weakness. Less likely ACS but EKG and troponin were completed. Doubt PE. Fairly benign abdomen. Doubt infection at this point. No evidence of pneumonia. Likely hypoglycemia related to her liver dysfunction and her insulin usage followed by delay in oral intake. No trauma reported and do no think we need imaging at this time. Chest x-ray is unremarkable. No leukocytosis and no acute anemia. Liver enzymes and bilirubin glucose has been stable here over 2 hours. Discussed with family options going forward. She is tolerating oral intake here. Feel that discharge home is appropriate. Discussed return criteria. Discussed caution regarding blood sugar control. Medication Reconcilliation Current Medication List: was personally reviewed by me Blood Pressure Screening Patient's blood pressure: Normal blood pressure Impression Primary Impression: Hypoglycemia Additional Impression: Fatigue Scribe Attestation The scribe's documentation has been prepared under my direction and personally reviewed by me in its entirety. I confirm that the note above accurately reflects all work, treatment, procedures, and medical decision making performed by me. Departure Information Dispostion Home / Self-Care Referrals Idalmis Shah M.D. (PCP) Forms HOME CARE DOCUMENTATION FORM, IMPORTANT VISIT INFORMATION, WORK / SCHOOL INSTRUCTIONS Patient Instructions My Zana Hurtado [facility] Additional Instructions Please be careful with her insulin dosing and again would err on the side including your blood sugar run high. Especially if you are eating less decrease the amount of insulin you are taking. Eating and drinking is important to maintain her strength. Continue to have outpatient follow-up with your doctors as scheduled. If you develop any new or concerning issues feel free to return for reevaluation here. Problem Qualifiers Additional Impression: Fatigue Fatigue type: unspecified Qualified Codes: R53.83 - Other fatigue
--- NOTE | 2018-06-21 22:16 | DIAGNOSTIC IMAGING REPORT ---
SINGLE VIEW CHEST CLINICAL HISTORY: Generalized abdominal pain. FINDINGS: An AP, portable, upright chest radiograph is compared to study dated 03/30/2018. The heart is top normal for projection and there is atherosclerotic calcification of the thoracic aorta. The pulmonary vasculature is noncongested. Chronic interstitial thickening is unchanged. Bibasilar atelectasis is noted. No airspace consolidation, large pleural effusion, or pneumothorax is seen. The skeletal structures are osteopenic. There is chronic posttraumatic deformity of the right proximal humerus. There is a healed right-sided rib fracture. IMPRESSION: No acute cardiopulmonary abnormality. Electronically signed by: Adrián Deutsch M.D. 06/21/2018 10:14 PM Dictated Date/Time: 06/21/2018 10:13 PM
[2018-06-21] MEDS ORDERED: PANT40TA2 PO (22:24)
[2018-06-21] MEDS ORDERED: AMIT25TA9 PO (22:28)
[2018-06-21] MEDS ORDERED: FRS/40 PO (22:28)
[2018-06-21] MEDS ORDERED: SKINCRE34 TOP (22:28)
[2018-06-21] MEDS ORDERED: CHOLPOW PO (22:28)
[2018-06-21] MEDS ORDERED: NADO20TA PO (22:38)
[2018-06-21 22:42] LABS: BASO % 0.1 %; BASO ABS # 0.01 K/uL (0-0.2); EOS % 1.2 %; HEMATOCRIT 30.4 % (37-47); HEMOGLOBIN 11.1 g/dL (12.0-16.0); IG# 0.06 K/uL (0.00-0.02); LYMPH % 12.7 %; LYMPH ABS # 1.05 K/uL (1.2-3.4); MEAN CORPUSCULAR HEMOGLOBIN 36.2 pg (25-34); MEAN CORPUSCULAR HGB CONC 36.5 g/dl (32-36); MEAN PLATELET VOLUME 10.8 fL (7.4-10.4); MONO % 7.5 %; MONO ABS # 0.62 K/uL (0.11-0.59); NEUT % 77.8 %; NEUT ABS # 6.41 K/uL (1.4-6.5); PLATELET COUNT 121 K/uL (130-400); RED CELL DISTRIBUTION WIDTH CV 16.3 % (11.5-14.5); RED CELL DISTRIBUTION WIDTH SD 58.5 fL (36.4-46.3); WHITE BLOOD COUNT 8.25 K/uL (4.8-10.8)
[2018-06-21 22:51] LABS: INR 1.1 (0.9-1.1); PTT PATIENT 26.9 SECONDS (21.0-31.0)
[2018-06-21 23:00] LABS: ALBUMIN 2.5 gm/dl (3.4-5.0); ALT/SGPT 53 U/L (12-78); AST/SGOT 76 U/L (15-37); BLOOD UREA NITROGEN 39 mg/dl (7-18); CALCIUM 9.4 mg/dl (8.5-10.1); CARBON DIOXIDE 25 mmol/L (21-32); CREATININE 1.21 mg/dl (0.60-1.20); GLUCOSE 123 mg/dl (70-99); LIPASE 406 U/L (73-393); POTASSIUM 3.9 mmol/L (3.5-5.1); SODIUM 137 mmol/L (136-145)
[2018-06-21 23:05] LABS: ALKALINE PHOSPHATASE 216 U/L (45-117); TOTAL PROTEIN 7.7 gm/dl (6.4-8.2)
[2018-06-22 00:16] VITALS: BP 100/66; PULSE 69; O2SAT 100
== END 2018-06-22 00:16 | disposition home or self-care (01) ==
LOC: EDBD 20:53 → C.EDA 20:55
DX: E11.649 Type 2 diabetes mellitus with hypoglycemia without coma (principal); D63.8 Anemia in other chronic diseases classified elsewhere; M51.36 Other intervertebral disc degeneration, lumbar region; K74.60 Unspecified cirrhosis of liver; K75.81 Nonalcoholic steatohepatitis (NASH); I85.10 Secondary esophageal varices without bleeding; Z83.3 Family history of diabetes mellitus; Z79.899 Other long term (current) drug therapy; Z79.84 Long term (current) use of oral hypoglycemic drugs; Z88.0 Allergy status to penicillin; Z91.041 Radiographic dye allergy status

== ENCOUNTER 2018-09-23 18:24 | Inpatient (IN) ==
[2018-09-23] MEDS ORDERED: DiphenhydrAMINE HCL 50 MG/ML VIAL IV STA (19:08)
[2018-09-23] MEDS ORDERED: SODIUM CHLORIDE 0.9% 500 ML IV SCH (19:15)
--- NOTE | 2018-09-23 19:18 | Emergency Department Note ---
ED Visit Note . I, Adrián Wilson D.O. PGY-1, saw this patient with Dr. Tavera and contributed to the patient's care.
[2018-09-23 19:34] LABS: Basophils # (auto) 0.01 K/uL (0-0.2); Basophils % (auto) 0.2 %; Eosinophils # (auto) 0.08 K/uL (0-0.5); Eosinophils % (auto) 1.4 %; Hematocrit (blood only) 22.3 % (37-47); Hemoglobin 7.8 g/dL (12.0-16.0); Immature Granulocytes # (auto) 0.04 K/uL (0.00-0.02); Immature Granulocytes % (auto) 0.7 %; Lymphocytes # (auto) 0.82 K/uL (1.2-3.4); Mean Corpuscular Volume 93.7 fL (80-100); Mean Platelet Volume 10.5 fL (7.4-10.4); Monocytes # (auto) 0.59 K/uL (0.11-0.59); Monocytes % (auto) 10.1 %; Neutrophils # (auto) 4.31 K/uL (1.4-6.5); Neutrophils % (auto) 73.6 %; Platelet Count 122 K/uL (130-400); RDW Coefficient of Variation 16.5 % (11.5-14.5); RDW Standard Deviation 55.6 fL (36.4-46.3); Red Blood Count 2.38 M/uL (4.2-5.4); White Blood Count 5.85 K/uL (4.8-10.8)
[2018-09-23 19:45] LABS: INR 1.3 (0.9-1.1); Partial Thromboplastin Ratio 1.1; Partial Thromboplastin Time 27.9 Seconds (21.0-31.0); Prothrombin Time 13.1 Seconds (9.0-12.0)
[2018-09-23 19:55] LABS: Albumin Globulin Ratio 0.5 (0.9-2); Albumin Level 2.2 gm/dl (3.4-5.0); BUN Creatinine Ratio 27.3 (10-20); Bilirubin,Total 7.5 mg/dl (0.1-1); Calcium 9.4 mg/dl (8.5-10.1); Creatinine Clr Calc Pharmacy 38.8 ml/min; Est GFR (Non-African American) 37.9; Globulin 4.7 gm/dl (2.5-4.0); Potassium 4.2 mmol/L (3.5-5.1); Total Protein 6.9 gm/dl (6.4-8.2)
[2018-09-23 19:57] LABS: Target Cells 1+
--- NOTE | 2018-09-23 19:57 | CT Scan Report ---
CT OF THE HEAD WITHOUT CONTRAST CLINICAL HISTORY: Headache. COMPARISON STUDY: No previous studies for comparison. CT DOSE: 614.27 mGy.cm TECHNIQUE: Helical axial images of the head were obtained without IV contrast. Automated exposure con trol was utilized for the study. A dose lowering technique was utilized adhering to the principles o f ALARA. FINDINGS: No acute intracranial hemorrhage, midline shift or mass effect is present. Ventricular syst em is normal. Basilar cisterns are patent. There are no extra axial collections. Marques-white different iation is maintained. There are no findings to suggest acute dural sinus thrombosis or acute territor ial infarct. There is no significant calvarial abnormality. There are postsurgical findings within th e sinuses without significant sinus mucosal thickening. IMPRESSION: No acute intracranial findings. Electronically signed by: Omar Orlando M.D. 09/23/2018 7:56 PM
[2018-09-23] MEDS ORDERED: LACTULOSE SYRUP 20 GM/30 ML UDC PO STA (21:20)
--- NOTE | 2018-09-23 22:18 | History & Physical Report ---
Date of Service September 23, 2018 Assessment & Plan (1) Decompensation of cirrhosis of liver: 58 y/o F Hx DM II, pancytopenia, cirrhosis due to TORRES - previous admissions due encephalopathy. Presents primarily with lethargy. Initial labs are notable for an ammonia level of 187, stable anemia, hyperbilirubinemia and MADELEINE. The pt states that as of the end of the month she is to be placed on a liver transplant list. 1) Lethargy due to hyperammonemia / encephalopathy - she takes Lactulose PRN. Considering her progressive disease, she should likely take scheduled Lactulose at this point. We will start her on TID dosing in addition to Xifaxin. 2) Cirrhosis - she follows with a specialist and transplant surgeon at [facility]. Considering her worsening numbers, we may want to contact her specialist while she is here to update her status. LFTs will be repeated AM. Her current MELD is calculated at 24 - 19.6% 3 Mo mortality. 3) MADELEINE - There is some concern for hepatorenal syndrome. Her BP normally runs low and she was recently forced to DC Nadolol due to a low BP. We will repeat her BMP in short order to determine the course of treatment. A fluid bolus is provided and diuretics will be held pending AM reassessment. 4) DM II - placed on a SS 5) Pancytopenia - appears stable - we will trend a CBC AM Full code - SCDs Total time for this admit including review of labs, meds, imaging, records - discussion with pt and ER attending - 41 min Present on Admission?: Yes History of Present Illness Chief Complaint: Hepatic encephalopathy Primary Care Provider: She Davis 58 y/o F Hx DM II, pancytopenia, cirrhosis due to TORRES - previous admissions due encephalopathy. Presents primarily with lethargy. Initial labs are notable for an ammonia level of 187, stable anemia, hyperbilirubinemia and MADELEINE. The pt states that as of the end of the month she is to be placed on a liver transplant list. 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 3) Hepatic encephalopathy 4) Esophageal varices 5) GERD 6) Peripheral neuropathy 7) Psoriasis - prescribed Stelara 8) Pancytopenia Surgery: 1) JUANY-BSO 2) Tonsillectomy 3) Nasal polypectomy x 3 Social: Does not drink or smoke Family: Adopted Allergies Allergy/AdvReac Type Severity Reaction Status Date / Time Iodinated Contrast- Oral and Allergy Intermediate Sneezing Verified 09/09/18 13: 30 IV Dye and breaks out into a rash Penicillins Allergy Intermediate HIVES Verified 09/09/18 13:30 Home Medications Home Medications Medication Instructions Recorded Confirmed Type amitriptyline 25 mg PO HS 07/20/18 09/09/18 History insulin glargine [Basaglar KwikPen 30 unit SUBCUT HS 07/20/18 09/09/18 History U-100 Insulin] insulin lispro [Humalog U-100 15 units SUBCUT TID 07/20/18 09/09/18 History Insulin] lactulose 15 ml PO DIRECTED PRN 07/20/18 09/09/18 History pantoprazole 40 mg PO QAM 07/20/18 09/09/18 History ursodiol 250 mg PO BID 07/20/18 09/09/18 History zinc sulfate 220 mg PO BID 07/20/18 09/09/18 History cholecalciferol (vitamin D3) 1 cap PO DAILY 09/09/18 09/09/18 History ustekinumab [Stelara] 0 mg SUBCUT DIRECTED 09/09/18 09/09/18 History spironolactone 100 mg PO DAILY #30 tab 09/11/18 Rx furosemide [Lasix] 40 mg PO BID 09/23/18 09/23/18 History gabapentin 200 mg PO HS 09/23/18 09/23/18 History ursodiol [Actigall] 600 mg PO DAILY 09/23/18 09/23/18 History Past Med/Surg History Social History marital status: Current Living Situation: Spouse Current Living Situation Comment: CHILDREN Feels Safe at Home: Yes Smoking Status: Never smoker Second Hand Exposure: No Hx Alcohol Use: No Hx Substance Use: No Beliefs That Will Affect Care: None Preferred Language: Citizen Of [place] Review of Systems General: Descrbes lethargy - currently denies confusion ENT: Denies throat pain, nasal congestion Eyes: Denies acute visual impairment, eye pain Cardiovascular: Denies CP, palpitations, PND, orthopnea Respiratory: Denies SOB, productive cough, wheezing GI: Denies nausea, vomiting, diarrhea, constipation, GI bleeding : Denies dysuria, hesitancy, frequency, hematuria Neuro: Primarily describes lethargy, weakness which has been progressive Endocrine: Denies polydypsia, polyuria Skin: Jaundice is chronic Physical Exam 2 Vital Signs (Past 24 Hours): Last Vital Signs Temp 36.5 C 09/23/18 18:30 Pulse 88 09/23/18 21:40 Resp 20 09/23/18 21:40 BP 135/62 09/23/18 21:38 Pulse Ox 100 09/23/18 21:40 Physical Exam: General: Lethargic and slow to respond although oriented ENT: No erythema or exudates, no thrush Eyes: ROBERT, EOMI - (+) icterus Head and neck: Normocephalic, atraumatic, No JVD, neck is supple. Chest/heart: Nontender, S1,2, RRR, no murmurs, no gallops Lungs: CTAB, no wheezing or crackles Abdomen: Nontender, nondistended, BS+ Neuro: AAO x 3, speech is clear - slow response time Musculoskeletal: No joint inflammation, muscle tenderness, FROM Skin: Jaundice is present Extremities: No clubbing, cyanosis, edema
[2018-09-23] MEDS ORDERED: MAGNESIUM HYDROXIDE SUSP 30 ML UDC PO PRN (23:49)
[2018-09-23] MEDS ORDERED: POLYETHYLENE (MIRALAX) 17 GM PACK PO PRN (23:49)
[2018-09-23] MEDS ORDERED: ALUMINUM/MAGNESIUM SUSP 30 ML UDC PO PRN (23:49)
[2018-09-23] MEDS ORDERED: ONDANSETRON INJ 2 MG/ML 2 ML VIAL IV PRN (23:49)
[2018-09-23] MEDS ORDERED: DEXTROSE 50% 50 ML SYRINGE IV PRN (23:53)
[2018-09-23] MEDS ORDERED: GLUCAGON FOR INJ 1 MG VIAL IM PRN (23:53)
[2018-09-23] MEDS ORDERED: GLUCOSE 40% GEL 15 GM TUBE PO PRN (23:53)
[2018-09-23] MEDS ORDERED: GLUCOSE 10 TABS/TUBE PO PRN (23:53)
[2018-09-23] MEDS ORDERED: CARBOHYDRATES FOR HYPOGLYCEMIA PO PRN (23:53)
[2018-09-24] MEDS ORDERED: SODIUM CHLORIDE 0.9% 500 ML IV SCH (01:45)
[2018-09-24] MEDS: LACTULOSE SYRUP 30 GM/45 ML UDP PO SCH ×3 (05:56→20:12)
[2018-09-24 06:11] LABS: Basophils # (auto) 0.02 K/uL (0-0.2); Basophils % (auto) 0.4 %; Eosinophils # (auto) 0.05 K/uL (0-0.5); Eosinophils % (auto) 0.9 %; Hematocrit (blood only) 22.3 % (37-47); Hemoglobin 7.6 g/dL (12.0-16.0); Immature Granulocytes # (auto) 0.03 K/uL (0.00-0.02); Immature Granulocytes % (auto) 0.6 %; Lymphocytes % (auto) 17.1 %; Mean Corpuscular Hgb Conc 34.1 g/dL (32-36); Mean Corpuscular Volume 95.3 fL (80-100); Mean Platelet Volume 11.1 fL (7.4-10.4); Monocytes # (auto) 0.48 K/uL (0.11-0.59); Monocytes % (auto) 9.1 %; Neutrophils # (auto) 3.79 K/uL (1.4-6.5); Neutrophils % (auto) 71.9 %; Platelet Count 106 K/uL (130-400); RDW Coefficient of Variation 16.7 % (11.5-14.5); RDW Standard Deviation 58.1 fL (36.4-46.3); Red Blood Count 2.34 M/uL (4.2-5.4); White Blood Count 5.27 K/uL (4.8-10.8)
[2018-09-24 06:52] LABS: Albumin Level 2.2 gm/dl (3.4-5.0); BUN Creatinine Ratio 28.5 (10-20); Bilirubin Direct 6.5 mg/dl (0-0.2); Calcium 8.9 mg/dl (8.5-10.1); Creatinine Clr Calc Pharmacy 45.2 ml/min; Est GFR (African American) 52.6; Est GFR (Non-African American) 45.4; Magnesium 2.3 mg/dl (1.8-2.4); Potassium 4.1 mmol/L (3.5-5.1); Total Protein 6.9 gm/dl (6.4-8.2)
[2018-09-24] MEDS: PANTOprazole 40 MG TAB PO SCH (07:47)
[2018-09-24] MEDS: RIFAXIMIN 550 MG TABLET PO SCH ×2 (07:47→20:10)
[2018-09-24] MEDS: ZINC SULFATE 220 MG CAPSULE PO SCH ×2 (07:47→20:09)
[2018-09-24] MEDS: INSULIN ASPART 100 UNITS/ML 3 ML PEN SC SCH ×4 (07:48→20:35)
[2018-09-24] MEDS ORDERED: URSODIOL 300 MG CAP PO SCH ×2 (09:00)
[2018-09-24] MEDS: URSODIOL 300 MG CAP PO SCH (11:58)
[2018-09-24 12:36] LABS: Appearance Urine Cloudy (Clear); Bacteria Urine Automated 1+ (Negative); Color Urine Dark Yellow; Epithelial Cell Urine Auto 20-30 /lpf (0-5); Glucose Urine UA Negative (Negative); Ketones Urine Negative (Negative); Leukocyte Esterase Urine Trace (Negative); Nitrite Urine Negative (Negative); Protein Urine Negative (Negative); Urobilinogen Urine Negative (Negative); WBC Urine Automated 0 /hpf (0-5)
[2018-09-24 13:00] LABS: Bilirubin Urine 1+ (Negative)
[2018-09-24 13:01] LABS: Ictotest Urine Positive (Negative)
--- NOTE | 2018-09-24 13:15 | Family Medicine Progress Note ---
Date of Service September 24, 2018 Assessment & Plan (1) Decompensation of cirrhosis of liver: Rhona Hendricks is a 58 y.o female with Hx Insulin dependent diabetes, cirrhosis secondary primary biliary cirrhosis and TORRES, and pancytopenia admitted for encephalopathy with hyperammonemia now improved. 1) Encephalopathy (improved) -Secondary to Cirrhosis -Ammonia level of 187 on admission, will repeat -Lactulose scheduled at 30gm PO TID and Xifaxin 550mg PO BID 2) Cirrhosis - she follows with a specialist and transplant surgeon at [facility]. Is s/p bone marrow biopsy per Dr. Smith one month ago to evaluate MGUS status, if wnl can proceed towards Left message with family services coordinator regarding possible discharge to home today and sent a page to GI oncall. Awaiting response. AST/ALT 87/57 MELD is calculated at 24 - 19.6% 3 Mo mortality. 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 Will monitor CBC and transfuse if needed. Plan to discharge to home on 09/24. Supervising Physician Co-Signing Physician Notes Resident Physician Supervision Note: I independently interviewed and examined the patient and verified the ribera history and physical, reviewed labs and image studies, discussed the case with the resident Dr. Daugherty and agree with the findings and care plan. Subjective The patient is doing well this morning. States that shortness of breath has improved overnight. She is tolerating O2 per NC. She slept for a few hours overnight but it was difficult as she usually takes Gabapentin and another sleep aid prior to bed. Denies pain. She is tolerating a low salt diet. Has had two bowel movements this morning. Constitutional: no fever and no chills Ear, Nose, Mouth, Throat: no nasal congestion Respiratory: no cough, no chest congestion and no dyspnea Cardiovascular: no chest pain and no palpitations Gastrointestinal: no abdominal pain, no nausea and no vomiting Physical Exam 2 Vital Signs (Past 24 Hours): Last Vital Signs Temp 36.7 C 09/24/18 11:14 Pulse 92 H 09/24/18 11:14 Resp 20 09/24/18 11:14 BP 144/76 H 09/24/18 11:14 Pulse Ox 99 09/24/18 11:14 Constitutional: WD/WN, vitals as above well developed, cooperative, comfortable and + edematous; no acute distress and no altered mental status Eyes: bilateral scleral icterus ENMT: moist mucus membranes, poor dentition Neck: neck supple, no lymphadenopathy Respiratory: normal respiratory effort, lungs clear to auscultation Cardiovascular: Rate/Rhythm: regular rate and regular rhythm Extremities: + edema (bilateral lower extremity 2+ pitting edema) Grade II/ systolic ejection murmur Gastrointestinal (Abdomen): Inspection/Auscultation: normal bowel sounds Percussion/Palpation: + hepatosplenomegaly Abdomen soft, nttp, slightly distended, bruising present
--- NOTE | 2018-09-24 13:59 | Emergency Department Note ---
Entered by Frank Miles acting as a scribe for History of Present Illness General Chief complaint: Illness Stated complaint: SHAKEY,HEADACHE,BACKACHE Time Seen by Provider: 09/23/18 18:42 Source: patient Limitations: no limitations History of Present Illness Onset (ago): day(s) 3 Location: head (confusion) Radiation: back and neck Severity: similar to prior episodes (similar to before when she didnt take lactulose) Maximum Pain Intensity: 5 Quality: + other (cannot locate the pain) Associated symptoms: no shortness of breath The patient is a 58 y/o white female w/ PMHx of DMII, liver cirrosis, GERD, anemia of chronic disease, and degenerative disc disease who presents to the ED w/ CC of confusion beginning 3 days ago. The patient states she has elevated ammonia but does not take her prescribed lactulose when she has regular bowel movements. She states she has back aches, neck pain, headaches, feels shaky, and feels foggy but cannot really give an exact location of her pain. The patient states this pain is similar to pain she experiences when she has elevated ammonia. She states she is breathing fine and was not taking lactulose before this episode. She notes she has a history of cirrhosis. Home Medications Home Medications Medication Instructions Recorded Confirmed Type amitriptyline 25 mg PO HS 07/20/18 09/23/18 History insulin glargine [Basaglar KwikPen 30 unit SUBCUT HS 07/20/18 09/23/18 History U-100 Insulin] insulin lispro [Humalog U-100 15 units SUBCUT TID 07/20/18 09/23/18 History Insulin] lactulose 15 ml PO DIRECTED PRN 07/20/18 09/23/18 History pantoprazole 40 mg PO QAM 07/20/18 09/23/18 History ursodiol 500 mg PO DAILY 07/20/18 09/23/18 History zinc sulfate 220 mg PO BID 07/20/18 09/23/18 History cholecalciferol (vitamin D3) 1 cap PO DAILY 09/09/18 09/23/18 History ustekinumab [Stelara] 0 mg SUBCUT DIRECTED 09/09/18 09/23/18 History spironolactone 100 mg PO DAILY #30 tab 09/11/18 09/23/18 Rx furosemide [Lasix] 40 mg PO BID 09/23/18 09/23/18 History gabapentin 200 mg PO HS 09/23/18 09/23/18 History ursodiol [Actigall] 600 mg PO DAILY 09/23/18 09/23/18 History Allergies Allergy/AdvReac Type Severity Reaction Status Date / Time Iodinated Contrast- Oral and Allergy Intermediate Sneezing Verified 09/09/18 13: 30 IV Dye and breaks out into a rash Penicillins Allergy Intermediate HIVES Verified 09/09/18 13:30 Past Med/Surg History Medical History Diabetes mellitus, type II, 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) Anemia of chronic disease (Chronic) Degenerative disc disease, lumbar (Chronic) Anemia Cirrhosis PULMONARY BILIARY CIRRHOSIS Diabetes mellitus, type 2 Esophageal varices GERD (gastroesophageal reflux disease) Increased ammonia level Osteoarthritis Peripheral neuropathy Surgical History History of section X 2 History of colonoscopy History of tonsillectomy History of tooth extraction History of total abdominal hysterectomy and bilateral salpingo-oophorectomy Nasal polyp X 3 REMOVED Family History Other Adopted Social History marital status: Current Living Situation: Spouse Current Living Situation Comment: CHILDREN Other Information That Helps Us Care for You: No Feels Safe at Home: Yes Safety Concerns: Feels Safe At This Time Smoking Status: Never smoker Second Hand Exposure: No Hx Alcohol Use: No Hx Substance Use: No Beliefs That Will Affect Care: None Preferred Language: Tajik Communication Ability: Effective Identifier Horse Required: No Review of Systems See HPI for pertinent positives & negatives. and A total of 10 systems reviewed and were otherwise negative Physical Exam Vital Signs Vital Signs - 24 hr 09/23/18 18:30 09/23/18 20:08 09/23/18 20:10 Temperature 36.5 C Temperature Source Oral Sepsis Recent Fever Within 48 Hours No Sepsis New/Unexplained Change in Mental Status No Sepsis Action Taken by Nursing No Action Required Pulse Rate 88 85 85 Pulse Rate [Right Brachial] Pulse Rhythm [Right Brachial] Pulse Strength [Right Brachial] Respiratory Rate 16 13 13 Respiratory Effort / Characteristics Respiratory Depth Respiratory Pattern Blood Pressure 102/54 L Blood Pressure [Right Arm] Blood Pressure Mean 70 Blood Pressure Mean [Right Arm] Blood Pressure Position [Right Arm] Pulse Oximetry 100 85 L 99 Oxygen Delivery Method Room Air 09/23/18 20:20 09/23/18 20:30 09/23/18 20:40 Temperature Temperature Source Sepsis Recent Fever Within 48 Hours Sepsis New/Unexplained Change in Mental Status Sepsis Action Taken by Nursing Pulse Rate 84 84 84 Pulse Rate [Right Brachial] Pulse Rhythm [Right Brachial] Pulse Strength [Right Brachial] Respiratory Rate 13 15 12 Respiratory Effort / Characteristics Respiratory Depth Respiratory Pattern Blood Pressure Blood Pressure [Right Arm] Blood Pressure Mean Blood Pressure Mean [Right Arm] Blood Pressure Position [Right Arm] Pulse Oximetry 99 99 100 Oxygen Delivery Method 09/23/18 20:50 09/23/18 21:00 09/23/18 21:10 Temperature Temperature Source Sepsis Recent Fever Within 48 Hours Sepsis New/Unexplained Change in Mental Status Sepsis Action Taken by Nursing Pulse Rate 82 87 85 Pulse Rate [Right Brachial] Pulse Rhythm [Right Brachial] Pulse Strength [Right Brachial] Respiratory Rate 15 13 12 Respiratory Effort / Characteristics Respiratory Depth Respiratory Pattern Blood Pressure Blood Pressure [Right Arm] Blood Pressure Mean Blood Pressure Mean [Right Arm] Blood Pressure Position [Right Arm] Pulse Oximetry 100 100 100 Oxygen Delivery Method 09/23/18 21:20 09/23/18 21:30 09/23/18 21:38 Temperature Temperature Source Sepsis Recent Fever Within 48 Hours Sepsis New/Unexplained Change in Mental Status Sepsis Action Taken by Nursing Pulse Rate 85 84 88 Pulse Rate [Right Brachial] Pulse Rhythm [Right Brachial] Pulse Strength [Right Brachial] Respiratory Rate 16 26 H 16 Respiratory Effort / Characteristics Respiratory Depth Respiratory Pattern Blood Pressure 135/62 Blood Pressure [Right Arm] Blood Pressure Mean 86 Blood Pressure Mean [Right Arm] Blood Pressure Position [Right Arm] Pulse Oximetry 100 99 100 Oxygen Delivery Method 09/23/18 21:40 09/23/18 21:45 09/23/18 22:00 Temperature Temperature Source Sepsis Recent Fever Within 48 Hours Sepsis New/Unexplained Change in Mental Status Sepsis Action Taken by Nursing Pulse Rate 88 88 96 H Pulse Rate [Right Brachial] Pulse Rhythm [Right Brachial] Pulse Strength [Right Brachial] Respiratory Rate 20 15 19 Respiratory Effort / Characteristics Respiratory Depth Respiratory Pattern Blood Pressure Blood Pressure [Right Arm] 135/62 Blood Pressure Mean Blood Pressure Mean [Right Arm] 86 Blood Pressure Position [Right Arm] Pulse Oximetry 100 100 98 Oxygen Delivery Method 09/23/18 22:15 09/23/18 22:30 09/23/18 22:45 Temperature Temperature Source Sepsis Recent Fever Within 48 Hours Sepsis New/Unexplained Change in Mental Status Sepsis Action Taken by Nursing Pulse Rate 89 85 90 Pulse Rate [Right Brachial] Pulse Rhythm [Right Brachial] Pulse Strength [Right Brachial] Respiratory Rate 16 14 20 Respiratory Effort / Characteristics Respiratory Depth Respiratory Pattern Blood Pressure Blood Pressure [Right Arm] 110/69 Blood Pressure Mean Blood Pressure Mean [Right Arm] 82 Blood Pressure Position [Right Arm] Pulse Oximetry 100 99 100 Oxygen Delivery Method 09/23/18 23:35 09/24/18 00:45 09/24/18 04:00 Temperature 36.8 C 36.9 C Temperature Source Oral Oral Sepsis Recent Fever Within 48 Hours Sepsis New/Unexplained Change in Mental Status Sepsis Action Taken by Nursing Pulse Rate 93 H Pulse Rate [Right Brachial] 92 H 83 Pulse Rhythm [Right Brachial] Regular Pulse Strength [Right Brachial] Normal Respiratory Rate 18 20 18 Respiratory Effort / Characteristics Non-Labored Spontaneous Respiratory Depth Normal Respiratory Pattern Regular Blood Pressure 130/79 Blood Pressure [Right Arm] 129/67 106/61 Blood Pressure Mean Blood Pressure Mean [Right Arm] 87 76 Blood Pressure Position [Right Arm] Lying Lying Pulse Oximetry 100 99 99 Oxygen Delivery Method Room Air Room Air Room Air 09/24/18 06:30 09/24/18 08:00 09/24/18 11:14 Temperature 36.8 C 36.7 C Temperature Source Oral Oral Sepsis Recent Fever Within 48 Hours Sepsis New/Unexplained Change in Mental Status Sepsis Action Taken by Nursing Pulse Rate 84 Pulse Rate [Right Brachial] 84 92 H Pulse Rhythm [Right Brachial] Pulse Strength [Right Brachial] Respiratory Rate 22 20 Respiratory Effort / Characteristics Respiratory Depth Respiratory Pattern Blood Pressure Blood Pressure [Right Arm] 111/70 144/76 H Blood Pressure Mean Blood Pressure Mean [Right Arm] 83 98 Blood Pressure Position [Right Arm] Lying Pulse Oximetry 98 99 Oxygen Delivery Method Room Air GENERAL: Well appearing, well nourished, NAD, non-toxic. EYE EXAM: Scleral icterus. PERRL, no anisocoria and EOM's grossly intact w/o pain. OROPHARYNX: No exudate, posterior pharynx is clear, no tonsillar/uvular deviation or swelling. NECK: Supple, no nuchal rigidity, no adenopathy, non-tender. No signs of meningismus. LUNGS: Clear to auscultation bilaterally. Normal chest wall mechanics. HEART: NSR, no MRG. ABDOMEN: Abdomen soft, non-tender, normo-active bowel sounds, no masses, no rebound or guarding. BACK: No CVA TTP. SKIN: No rashes and no bruising. Jaundice. UPPER EXTREMITIES: Upper extremities are grossly normal. Mild bilateral tremors. No overt asterixis. LOWER EXTREMITIES: No pitting edema. No calf pain. NEURO EXAM: Cranial nerves II-XII grossly intact, normal speech, 5/5 strength in bilateral upper and lower extremities, no sensory deficits, moves all 4 extremities on command w/o issue. Course 1911: Past medical records reviewed. The patient was evaluated in room A3, and a complete history and physical examination with the assistance of my resident. 2124: I reevaluated the patient and discussed the findings with her. She verbalized agreement to a hospitalist evaluation and the treatment plan. The patient will be evaluated for further management and care. 2127: I reviewed the patient's case with Becky Black, [facility] Hospitalist. He will evaluate the patient for further management. Administered Medications Insulin Aspart (Novolog Flexpen) 0 units SC ACHS HYACINTH Stop: 10/24/18 07:29 Last Admin: 09/24/18 11:58 Dose: 3 units Admin: 09/24/18 07:48 Dose: 1 units Lactulose (Chronulac) 30 gm PO Q8H HYACINTH Stop: 10/24/18 05:59 Last Admin: 09/24/18 13:07 Dose: 30 gm Admin: 09/24/18 05:56 Dose: 30 gm Pantoprazole Sodium (Protonix) 40 mg PO QAM HYACINTH Stop: 10/24/18 08:59 Last Admin: 09/24/18 07:47 Dose: 40 mg Rifaximin (Xifaxan) 550 mg PO BID HYACINTH Stop: 10/24/18 08:59 Last Admin: 09/24/18 07:47 Dose: 550 mg Ursodiol (Actigall) 900 mg PO 1300 HYACINTH Stop: 10/24/18 12:59 Last Admin: 11/24/18 11:58 Dose: 900 mg Zinc Sulfate (Zinc Sulfate) 220 mg PO BID HYACINTH Stop: 10/24/18 08:59 Last Admin: 09/24/18 07:47 Dose: 220 mg Discontinued Medications Diphenhydramine HCl (Benadryl) 12.5 mg IV NOW STA Stop: 09/23/18 19:09 Last Admin: 09/23/18 19:31 Dose: 12.5 mg Sodium Chloride (Nss) 500 mls @ 999 mls/hr IV .Q31M HYACINTH Stop: 09/23/18 19:45 Last Infusion: 09/23/18 20:04 Dose: 0 mls/hr Admin: 09/23/18 19:31 Dose: 999 mls/hr Sodium Chloride (Nss) 500 mls @ 250 mls/hr IV .Q2H HYACINTH Stop: 09/24/18 03:44 Last Infusion: 09/24/18 04:00 Dose: 0 mls/hr Admin: 09/24/18 01:56 Dose: 250 mls/hr Lactulose (Chronulac) 30 gm PO NOW STA Stop: 09/23/18 21:21 Last Admin: 09/23/18 21:36 Dose: 30 gm Medical Decision Making Medical Records Attestation: I reviewed the patient's medical records. Home Medications Current Medication List: was personally reviewed by me Laboratory Data Attestation: I reviewed the patient's lab results. Result diagrams: 09/24/18 05:48 09/24/18 05:48 Lab Results 09/23/18 09/23/18 09/23/18 Range/Units 19:25 19:25 19:25 WBC 5.85 (4.8-10.8) K/uL RBC 2.38 L (4.2-5.4) M/uL Hgb 7.8 L (12.0-16.0) g/dL Hct 22.3 L (37-47) % MCV 93.7 (80-100) fL MCH 32.8 (25-34) pg MCHC 35.0 (32-36) g/dL RDW Std Deviation 55.6 H (36.4-46.3) fL RDW Coeff of Paty 16.5 H (11.5-14.5) % Plt Count 122 L (130-400) K/uL MPV 10.5 H (7.4-10.4) fL Immature Gran % (Auto) 0.7 % Neut % (Auto) 73.6 % Lymph % (Auto) 14.0 % [place] % (Auto) 10.1 % Eos % (Auto) 1.4 % Baso % (Auto) 0.2 % Immature Gran # (Auto) 0.04 H (0.00-0.02) K/uL Neut # (Auto) 4.31 (1.4-6.5) K/uL Lymph # (Auto) 0.82 L (1.2-3.4) K/uL [place] # (Auto) 0.59 (0.11-0.59) K/uL Eos # (Auto) 0.08 (0-0.5) K/uL Baso # (Auto) 0.01 (0-0.2) K/uL Target Cells 1+ PT 13.1 H (9.0-12.0) Seconds INR 1.3 H (0.9-1.1) APTT 27.9 (21.0-31.0) Seconds PTT Ratio 1.1 Sodium 133 L (136-145) mmol/L Potassium 4.2 (3.5-5.1) mmol/L Chloride 98 (98-107) mmol/L Carbon Dioxide 25 (21-32) mmol/L Anion Gap 10.0 (3-11) BUN 42 H (7-18) mg/dl Creatinine 1.52 H (0.6-1.2) mg/dl Est Cr Clr Drug Dosing 38.8 ml/min Est GFR ( Amer) 44.0 Est GFR (Non-Af Amer) 37.9 BUN/Creatinine Ratio 27.3 H (10-20) Glucose 206 H (70-99) mg/dl POC Glucose (70-99) Calcium 9.4 (8.5-10.1) mg/dl Magnesium (1.8-2.4) mg/dl Total Bilirubin 7.5 H (0.1-1) mg/dl Direct Bilirubin (0-0.2) mg/dl AST 84 H (15-37) U/L ALT 50 (12-78) U/L Alkaline Phosphatase 221 H (45-117) U/L Ammonia (11-32) umol/L Total Protein 6.9 (6.4-8.2) gm/dl Albumin 2.2 L (3.4-5.0) gm/dl Globulin 4.7 H (2.5-4.0) gm/dl Albumin/Globulin Ratio 0.5 L (0.9-2) Lipase 278 (73-393) U/L Urine Color Urine Appearance (Clear) Urine pH (4.5-7.5) Ur Specific [place] (1.000-1.030) Urine Protein (Negative) Urine Glucose (UA) (Negative) Urine Ketones (Negative) Urine Blood (Negative) Urine Nitrite (Negative) Urine Bilirubin (Negative) Urine Urobilinogen (Negative) Ur Leukocyte Esterase (Negative) Urine WBC (Auto) (0-5) /hpf Urine RBC (Auto) (0-4) /hpf U Hyaline Cast (Auto) U Epithel Cells (Auto) (0-5) /lpf Urine Bacteria (Auto) (Negative) 09/23/18 09/24/18 09/24/18 Range/Units 20:27 05:48 05:48 WBC 5.27 (4.8-10.8) K/uL RBC 2.34 L (4.2-5.4) M/uL Hgb 7.6 L (12.0-16.0) g/dL Hct 22.3 L (37-47) % MCV 95.3 (80-100) fL MCH 32.5 (25-34) pg MCHC 34.1 (32-36) g/dL RDW Std Deviation 58.1 H (36.4-46.3) fL RDW Coeff of Paty 16.7 H (11.5-14.5) % Plt Count 106 L (130-400) K/uL MPV 11.1 H (7.4-10.4) fL Immature Gran % (Auto) 0.6 % Neut % (Auto) 71.9 % Lymph % (Auto) 17.1 % [place] % (Auto) 9.1 % Eos % (Auto) 0.9 % Baso % (Auto) 0.4 % Immature Gran # (Auto) 0.03 H (0.00-0.02) K/uL Neut # (Auto) 3.79 (1.4-6.5) K/uL Lymph # (Auto) 0.90 L (1.2-3.4) K/uL [place] # (Auto) 0.48 (0.11-0.59) K/uL Eos # (Auto) 0.05 (0-0.5) K/uL Baso # (Auto) 0.02 (0-0.2) K/uL Target Cells PT (9.0-12.0) Seconds INR (0.9-1.1) APTT (21.0-31.0) Seconds PTT Ratio Sodium 135 L (136-145) mmol/L Potassium 4.1 (3.5-5.1) mmol/L Chloride 103 (98-107) mmol/L Carbon Dioxide 25 (21-32) mmol/L Anion Gap 7.0 (3-11) BUN 37 H (7-18) mg/dl Creatinine 1.31 H (0.6-1.2) mg/dl Est Cr Clr Drug Dosing 45.2 ml/min Est GFR ( Amer) 52.6 Est GFR (Non-Af Amer) 45.4 BUN/Creatinine Ratio 28.5 H (10-20) Glucose 151 H (70-99) mg/dl POC Glucose (70-99) Calcium 8.9 (8.5-10.1) mg/dl Magnesium 2.3 (1.8-2.4) mg/dl Total Bilirubin 8.0 H (0.1-1) mg/dl Direct Bilirubin 6.5 H (0-0.2) mg/dl AST 87 H (15-37) U/L ALT 57 (12-78) U/L Alkaline Phosphatase 218 H (45-117) U/L Ammonia 187.7 H (11-32) umol/L Total Protein 6.9 (6.4-8.2) gm/dl Albumin 2.2 L (3.4-5.0) gm/dl Globulin (2.5-4.0) gm/dl Albumin/Globulin Ratio (0.9-2) Lipase (73-393) U/L Urine Color Urine Appearance (Clear) Urine pH (4.5-7.5) Ur Specific [place] (1.000-1.030) Urine Protein (Negative) Urine Glucose (UA) (Negative) Urine Ketones (Negative) Urine Blood (Negative) Urine Nitrite (Negative) Urine Bilirubin (Negative) Urine Urobilinogen (Negative) Ur Leukocyte Esterase (Negative) Urine WBC (Auto) (0-5) /hpf Urine RBC (Auto) (0-4) /hpf U Hyaline Cast (Auto) U Epithel Cells (Auto) (0-5) /lpf Urine Bacteria (Auto) (Negative) 09/24/18 09/24/18 09/24/18 Range/Units 07:29 11:39 Unknown WBC (4.8-10.8) K/uL RBC (4.2-5.4) M/uL Hgb (12.0-16.0) g/dL Hct (37-47) % MCV (80-100) fL MCH (25-34) pg MCHC (32-36) g/dL RDW Std Deviation (36.4-46.3) fL RDW Coeff of Paty (11.5-14.5) % Plt Count (130-400) K/uL MPV (7.4-10.4) fL Immature Gran % (Auto) % Neut % (Auto) % Lymph % (Auto) % [place] % (Auto) % Eos % (Auto) % Baso % (Auto) % Immature Gran # (Auto) (0.00-0.02) K/uL Neut # (Auto) (1.4-6.5) K/uL Lymph # (Auto) (1.2-3.4) K/uL [place] # (Auto) (0.11-0.59) K/uL Eos # (Auto) (0-0.5) K/uL Baso # (Auto) (0-0.2) K/uL Target Cells PT (9.0-12.0) Seconds INR (0.9-1.1) APTT (21.0-31.0) Seconds PTT Ratio Sodium (136-145) mmol/L Potassium (3.5-5.1) mmol/L Chloride (98-107) mmol/L Carbon Dioxide (21-32) mmol/L Anion Gap (3-11) BUN (7-18) mg/dl Creatinine (0.6-1.2) mg/dl Est Cr Clr Drug Dosing ml/min Est GFR ( Amer) Est GFR (Non-Af Amer) BUN/Creatinine Ratio (10-20) Glucose (70-99) mg/dl POC Glucose 172 H 246 H (70-99) Calcium (8.5-10.1) mg/dl Magnesium (1.8-2.4) mg/dl Total Bilirubin (0.1-1) mg/dl Direct Bilirubin (0-0.2) mg/dl AST (15-37) U/L ALT (12-78) U/L Alkaline Phosphatase (45-117) U/L Ammonia (11-32) umol/L Total Protein (6.4-8.2) gm/dl Albumin (3.4-5.0) gm/dl Globulin (2.5-4.0) gm/dl Albumin/Globulin Ratio (0.9-2) Lipase (73-393) U/L Urine Color Dark Yellow Urine Appearance Cloudy H (Clear) Urine pH 5.0 (4.5-7.5) Ur Specific [place] 1.020 (1.000-1.030) Urine Protein Negative (Negative) Urine Glucose (UA) Negative (Negative) Urine Ketones Negative (Negative) Urine Blood Negative (Negative) Urine Nitrite Negative (Negative) Urine Bilirubin 1+ H (Negative) Urine Urobilinogen Negative (Negative) Ur Leukocyte Esterase Trace H (Negative) Urine WBC (Auto) 0 (0-5) /hpf Urine RBC (Auto) 0-4 (0-4) /hpf U Hyaline Cast (Auto) Not Reportable U Epithel Cells (Auto) 20-30 H (0-5) /lpf Urine Bacteria (Auto) 1+ H (Negative) Imaging Data Radiologist's Impression: Radiology results as stated below per my review and the radiologist's interpretation: CT OF THE HEAD WITHOUT CONTRAST CLINICAL HISTORY: Headache. COMPARISON STUDY: No previous studies for comparison. CT DOSE: 614.27 mGy.cm TECHNIQUE: Helical axial images of the head were obtained without IV contrast. Automated exposure control was utilized for the study. A dose lowering technique was utilized adhering to the principles of ALARA. FINDINGS: No acute intracranial hemorrhage, midline shift or mass effect is present. Ventricular system is normal. Basilar cisterns are patent. There are no extra axial collections. Marques-white differentiation is maintained. There are no findings to suggest acute dural sinus thrombosis or acute territorial infarct. There is no significant calvarial abnormality. There are postsurgical findings within the sinuses without significant sinus mucosal thickening. IMPRESSION: No acute intracranial findings. Electronically signed by: Omar Orlando M.D. 09/23/2018 7:56 PM Blood Pressure Blood Pressure Findings: Normal blood pressure Blood Pressure Disposition: did not require urgent referral MDM Narrative The patient is a 58 y/o white female w/ PMHx of DMII, liver cirrosis, GERD, anemia of chronic disease, and degenerative disc disease who presents to the ED w/ CC of confusion beginning 3 days ago. Differential diagnoses includes but is not limited to toxic, metabolic, infectious, traumatic, cardiac, neurologic, hematologic, psychiatric and inflammatory etiologies. Patient was seen and evaluated the bedside. Patient was seen after being seen by the resident physician. Patient has had some mild confusion. Patient does have a known history of liver disease secondary to primary biliary cirrhosis. The patient is on a transplant list. Patient did complain of mild nonspecific headache but no abdominal pain. Patient does have mild bilateral upper extremity tremors and is jaundiced. Patient did have blood work completed along with a CT of the head. Patient did have chest film also completed. Patient's CT is unremarkable. Patient does have mild changes in both kidney function and total bilirubin. Patient does have chronic but stable anemia. White blood cell count is within normal limits. I did speak with the on-call hospitalist after obtaining an ammonia level which was elevated and the patient did receive lactulose. The patient was admitted to the medicine service. Impression & Plan Altered mental status, Confusion, Liver failure, Hyperammonemia Discharge Plan Visit Data *Final* Discharge Date/Time: 09/23/18 23:35 Chief Complaint: Illness Stated Complaint: SHAKEY,HEADACHE,BACKACHE ED Provider: Matt Tavera Discharge Problem: Altered mental status, Confusion, Liver failure, Hyperammonemia Patient Disposition: Admitted As Inpatient Discharge Instructions Interventions: ED Discharge Assessment Last Done: 09/23/18 23:35 The scribe's documentation has been prepared under my direction and personally reviewed by me in its entirety. I confirm that the note above accurately reflects all work, treatment, procedures, and medical decision making performed by me.
[2018-09-24 15:47] LABS: Basophils # (auto) 0.02 K/uL (0-0.2); Basophils % (auto) 0.3 %; Eosinophils # (auto) 0.08 K/uL (0-0.5); Eosinophils % (auto) 1.1 %; Hematocrit (blood only) 24.7 % (37-47); Hemoglobin 8.5 g/dL (12.0-16.0); Immature Granulocytes # (auto) 0.04 K/uL (0.00-0.02); Immature Granulocytes % (auto) 0.6 %; Lymphocytes % (auto) 12.9 %; Mean Corpuscular Volume 95.7 fL (80-100); Mean Platelet Volume 10.9 fL (7.4-10.4); Monocytes # (auto) 0.66 K/uL (0.11-0.59); Monocytes % (auto) 9.4 %; Neutrophils # (auto) 5.29 K/uL (1.4-6.5); Neutrophils % (auto) 75.7 %; Platelet Count 124 K/uL (130-400); RDW Coefficient of Variation 16.7 % (11.5-14.5); RDW Standard Deviation 58.2 fL (36.4-46.3); Red Blood Count 2.58 M/uL (4.2-5.4); White Blood Count 6.99 K/uL (4.8-10.8)
[2018-09-24 15:51] LABS: Mean Corpuscular Hgb Conc 34.4 g/dL (32-36)
[2018-09-24 16:12] LABS: Schistocytes 1+; Target Cells 1+
[2018-09-24] MEDS: FUROSEMIDE 40 MG TAB PO SCH (17:55)
[2018-09-24] MEDS ORDERED: INSULIN GLARGINE SOLOSTAR 100 UNITS/ML 3 ML PEN SC SCH (21:00)
[2018-09-24] MEDS ORDERED: AMITRIPTYLINE HCL 25 MG TAB PO SCH (21:00)
[2018-09-24] MEDS ORDERED: GABAPENTIN 100 MG CAP PO SCH (21:00)
[2018-09-25 06:11] LABS: Basophils # (auto) 0.02 K/uL (0-0.2); Basophils % (auto) 0.3 %; Eosinophils # (auto) 0.13 K/uL (0-0.5); Eosinophils % (auto) 1.9 %; Hematocrit (blood only) 22.9 % (37-47); Hemoglobin 8.1 g/dL (12.0-16.0); Immature Granulocytes # (auto) 0.03 K/uL (0.00-0.02); Immature Granulocytes % (auto) 0.4 %; Lymphocytes # (auto) 0.77 K/uL (1.2-3.4); Lymphocytes % (auto) 11.2 %; Mean Corpuscular Hgb Conc 35.4 g/dL (32-36); Mean Platelet Volume 10.7 fL (7.4-10.4); Monocytes # (auto) 0.82 K/uL (0.11-0.59); Monocytes % (auto) 11.9 %; Neutrophils # (auto) 5.13 K/uL (1.4-6.5); Neutrophils % (auto) 74.3 %; Platelet Count 117 K/uL (130-400); RDW Coefficient of Variation 16.6 % (11.5-14.5); RDW Standard Deviation 57.3 fL (36.4-46.3); Red Blood Count 2.41 M/uL (4.2-5.4)
[2018-09-25] MEDS: LACTULOSE SYRUP 30 GM/45 ML UDP PO SCH ×2 (06:20→13:37)
[2018-09-25 06:39] LABS: Target Cells 1+
[2018-09-25 06:43] LABS: Albumin Globulin Ratio 0.5 (0.9-2); Albumin Level 2.2 gm/dl (3.4-5.0); BUN Creatinine Ratio 25.1 (10-20); Bilirubin,Total 7.4 mg/dl (0.1-1); Creatinine Clr Calc Pharmacy 39.2 ml/min; Est GFR (African American) 44.3; Est GFR (Non-African American) 38.2; Globulin 4.4 gm/dl (2.5-4.0); Potassium 4.7 mmol/L (3.5-5.1); Total Protein 6.6 gm/dl (6.4-8.2)
--- NOTE | 2018-09-25 07:59 | Family Medicine Progress Note ---
Date of Service September 25, 2018 Assessment & Plan (1) Decompensation of cirrhosis of liver: Rhona Hendricks is a 58 y.o female with Hx Insulin dependent diabetes, cirrhosis secondary primary biliary cirrhosis and TORRES, and pancytopenia admitted for encephalopathy with hyperammonemia now improved. 1) Encephalopathy (improved) -Secondary to Cirrhosis -Ammonia level of 187 on admission, repeat in the 50s range -Lactulose scheduled at 30gm PO TID and Xifaxin 550mg PO BID 2) Cirrhosis - she follows with a specialist and transplant surgeon at [facility]. Is s/p bone marrow biopsy per Dr. Smith one month ago to evaluate MGUS status, if wnl can proceed towards Left message with recruiter coordinator regarding possible discharge to home today and sent a page to WANDA guzman. Awaiting response. AST/ALT 87/57 MELD is calculated at 24 - 19.6% 3 Mo mortality. 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 Subjective The patient is doing well this morning. States that shortness of breath has improved overnight. Complains of mild edema of bilateral lower legs. She is tolerating a low salt diet. Has had several bowel movements this morning. Physical Exam 2 Vital Signs (Past 24 Hours): Last Vital Signs Temp 36.8 C 09/25/18 07:22 Pulse 88 09/25/18 07:22 Resp 18 09/25/18 07:22 BP 100/63 09/25/18 07:22 Pulse Ox 100 09/25/18 07:22 Constitutional: WD/WN, vitals as above well developed, cooperative, comfortable and + edematous; no acute distress and no altered mental status Respiratory: normal respiratory effort, lungs clear to auscultation Cardiovascular: Rate/Rhythm: regular rate and regular rhythm Extremities: + edema (1+ bilateral edema) Gastrointestinal (Abdomen): Inspection/Auscultation: normal bowel sounds Percussion/Palpation: + hepatosplenomegaly
[2018-09-25] MEDS: ZINC SULFATE 220 MG CAPSULE PO SCH (08:03)
[2018-09-25] MEDS: RIFAXIMIN 550 MG TABLET PO SCH (08:03)
[2018-09-25] MEDS: PANTOprazole 40 MG TAB PO SCH (08:03)
[2018-09-25] MEDS: FUROSEMIDE 40 MG TAB PO SCH (08:03)
[2018-09-25] MEDS: INSULIN ASPART 100 UNITS/ML 3 ML PEN SC SCH ×2 (08:04→12:39)
[2018-09-25] MEDS: URSODIOL 300 MG CAP PO SCH (12:36)
[2018-09-25] MEDS ORDERED: FUROSEMIDE 20 MG in SYRINGE 0 ML IV ONE (13:30)
[2018-09-25] MEDS ORDERED: URSODIOL 300 MG CAP PO ONE (15:50)
--- NOTE | 2018-10-05 18:39 | Discharge Summary ---
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 Presents primarily with lethargy. Initial labs are notable for an ammonia level of 187, stable anemia, hyperbilirubinemia and MADELEINE. The pt states that as of the end of the month she is to be placed on a liver transplant list. 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 3) Hepatic encephalopathy 4) Esophageal varices 5) GERD 6) Peripheral neuropathy 7) Psoriasis - prescribed Stelara 8) Pancytopenia Surgery: 1) JUANY-BSO 2) Tonsillectomy 3) Nasal polypectomy x 3 Social: Does not drink or smoke Family: Adopted Admission Exam (Per Admitting) Constitutional WD/WN, vitals as above well developed, cooperative, comfortable and + edematous; no acute distress and no altered mental status Respiratory normal respiratory effort, lungs clear to auscultation Cardiovascular Rate/Rhythm: regular rate and regular rhythm Extremities: + edema (1+ bilateral edema) Gastrointestinal (Abdomen) Inspection/Auscultation: normal bowel sounds Percussion/Palpation: + hepatosplenomegaly Discharge Data Consultations 09/23/18 21:28 ED Decision to Admit Stat Hospital Course (1) Decompensation of cirrhosis of liver: Rhona Hendricks is a 58 y.o female with history of Insulin dependent diabetes, 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 Encephalopathy: Secondary to Cirrhosis. Was admitted with complaints of fatigue and confusion. On admission her ammonia level was 187 with repeat of 39.[address] head negative for acute intracranial findings. Treatment given included Lactulose 30gm PO TID and Xifaxin 550mg PO BID. She improved symptomatically on 09/24 and did not have findings of confusion prior to discharge. Cirrhosis: Secondary to TORRES and primary biliary cirrhosis. She follows in the outpatient setting with a specialist and transplant surgeon at [facility] ([facility]) . Is s/p bone marrow biopsy per Dr. Smith in August to evaluate MGUS status; if MGUS is not active can proceed towards transplant. [id number] PO daily continued during admission with 20mg IV given prior to discharge to due positive fluid balance of 500cc. She also received Spironolactone 100mg PO daily. Significant labs during admission: AST/ALT 87/57, Tbili 7.4, Alk phos, 232, Albumin 2.2 MELD calculated to be 24 with 19.6% 3 Mo mortality. Acute Kidney Injury: May be secondary to hepatorenal syndrome. Creatinine of 1.51 during admission with repeat of 1.31 and 1.52 with baseline near 1.0. She received 1L fluid bolus during admission with no other therapy required. Insulin Dependent DM2: Accuchecks and Sliding Scale Insulin during admission. Was placed on a diabetic low sodium diet. Pancytopenia: Secondary to MGUS. No management during hospitalization Anemia of Chronic Disease: secondary to Cirrhosis. Received a transfusion in March of 2018. No transfusion during this admission. Hemoglobin of 7.8 on admission with recheck of 8.5 on 09/24 and 8.1 on 09/25. The patient received Protonix for GI prophylaxis and wore SCD's for DVT prophylaxis. She was discharged to home on 09/25 in stable condition and given instructions to f/u closely with GI and Hepatology. Please see daily progress note for physical exam findings. Supervising Physician Co-Signing Physician Notes Resident Physician Supervision Note: I independently interviewed and examined the patient and verified the ribera history and physical, reviewed labs and image studies, discussed the case with the resident Dr. Daugherty and agree with the findings and care plan. Time spent in discharge 35 min
== END 2018-09-25 16:05 | disposition home or self-care (01) | DRG 441 ==
LOC: ED 18:24 → 2N 22:51 → SUATTDRO 22:51 → 2N 23:35

== ENCOUNTER 2020-03-18 18:53 | Observation (INO) ==
--- NOTE | 2020-03-18 19:38 | Emergency Department Note ---
History of Present Illness General Chief complaint: Abnormal Labs/Diagnostic Testing Stated complaint: HIGH POTASSIUM LEVELS, BLOOD DRAW Time Seen by Provider: 03/18/20 19:26 Source: patient History of Present Illness Provider complaint: Elevated potassium Onset (ago): hour(s) Severity: moderate Pain Consistency: + other (Potassium was 6.2) Relieved By: + none Associated symptoms: no chest pain, no cough, no fever/chills, no headaches, no malaise, no nausea/vomiting and no shortness of breath This is a 60-year-old female with a history of kidney disease presenting with elevated potassium today. The patient had blood work today and was told to come immediately to the emergency department because of a potassium of 6.2. She is currently asymptomatic. She does not have any chest discomfort or pain, shortness of breath, palpitations, lightheadedness, diarrhea, abdominal pain, significant change in her urination. She states that this is happened several times in the past and that this is the third time that her potassium was highly elevated to channel turner later to be not as bad. She stated she saw orthopedics today and had some trigger point injections in her hand. She denies any cough or cold symptoms or any known exposure to COVID-19. Home Medications Home Medications Medication Instructions Recorded Confirmed Type pantoprazole 40 mg tablet,delayed 40 mg PO QAM tab 11/15/19 03/18/20 History release magnesium oxide 400 mg PO .DAILY@ LUNCH 12/26/19 03/18/20 History pregabalin 75 mg capsule 75 mg PO QID #120 cap 01/30/20 03/18/20 Rx cholecalciferol (vitamin D3) 4,000 unit PO QAM 03/18/20 03/18/20 History lisinopril 2.5 mg PO QAM 03/18/20 03/18/20 History sirolimus 4 mg PO QAM 03/18/20 03/18/20 History Allergies Allergy/AdvReac Type Severity Reaction Status Date / Time Iodinated Contrast Media Allergy Intermediate Sneezing Verified 03/18/20 13:17 and breaks out into a rash Penicillins Allergy Intermediate Hives Verified 03/18/20 13:17 metformin Allergy Unknown Unknown Verified 03/18/20 13:17 Past Med/Surg History Medical History (Updated 03/19/20 @ 00:24 by Simone Pulido MD) Anemia of chronic disease (Chronic) Bilateral foot-drop COPD (chronic obstructive pulmonary disease) (Chronic) Degenerative disc disease, lumbar (Chronic) Diabetes mellitus type 1, uncontrolled (Chronic) Diabetic neuropathy (Chronic) Esophageal varices GERD (gastroesophageal reflux disease) 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 10/13/18 Nasal polyp X 3 REMOVED Family History Unknown Adopted Social History Preferred Language: Austrian Communication Ability: Effective Visual Impairment: No Limitations Aerobics Teacher Required: No Beliefs That Will Affect Care: None marital status: Current Living Situation: Spouse and Family Current Living Situation Comment: CHILDREN Feels Safe at Home: Yes Smoking Status: Never smoker Second Hand Exposure: No ; Hx Alcohol Use: No Hx Substance Use: No Review of Systems See HPI for pertinent positives & negatives. and A total of 10 systems reviewed and were otherwise negative Physical Exam Vital Signs Vital Signs - 24 hr 03/18/20 19:11 03/18/20 19:42 03/18/20 19:43 Temperature 36.8 C Temperature Source Oral Pulse Rate 79 69 66 Pulse Rate [Right Finger] Respiratory Rate 18 16 17 Respiratory Effort / Characteristics Non-Labored Respiratory Depth Normal Blood Pressure 133/81 147/86 H Blood Pressure Mean 98 106 Blood Pressure Position Sitting Pulse Oximetry 99 Oxygen Delivery Method Room Air Sepsis Recent Fever Within 48 Hours No Sepsis New/Unexplained Change in Mental Status No Sepsis Action Taken by Nursing No Action Required 03/18/20 19:46 03/18/20 19:47 03/18/20 19:50 Temperature Temperature Source Pulse Rate 70 78 67 Pulse Rate [Right Finger] Respiratory Rate 20 20 21 Respiratory Effort / Characteristics Respiratory Depth Blood Pressure 152/97 H Blood Pressure Mean 116 Blood Pressure Position Pulse Oximetry Oxygen Delivery Method Sepsis Recent Fever Within 48 Hours Sepsis New/Unexplained Change in Mental Status Sepsis Action Taken by Nursing 03/18/20 20:00 03/18/20 20:10 03/18/20 21:01 Temperature Temperature Source Pulse Rate 83 67 Pulse Rate [Right Finger] 70 Respiratory Rate 17 16 14 Respiratory Effort / Characteristics Non-Labored Spontaneous Respiratory Depth Blood Pressure 147/96 H Blood Pressure Mean 116 Blood Pressure Position Pulse Oximetry 98 Oxygen Delivery Method Room Air Sepsis Recent Fever Within 48 Hours Sepsis New/Unexplained Change in Mental Status Sepsis Action Taken by Nursing Constitutional: Vital signs reviewed. Eyes: Pupils are equal round reactive to light. Conjunctiva are noninjected. ENT: Pharynx is clear without erythema or exudate. Mucous membranes are moist. Neck supple without meningeal signs. Respiratory: Clear to auscultation bilaterally. Breath sounds are equal bilaterally. Cardiovascular: Regular rate and rhythm. No rubs or gallops. GI: Soft, nondistended and nontender. Bowel sounds are present. Musculoskeletal: No peripheral edema. No lower extremity tenderness. Integumentary: No cyanosis. or jaundice. Neurological: The patient is awake and alert. No focal deficits. Psychiatric: Normal affect. Not anxious appearing. Course Administered Medications Heparin Sodium (Porcine) (Heparin Sodium (Porcine)) 5,000 units SQ Q8 [facility] Stop: 04/17/20 22:24 Last Admin: 03/18/20 23:41 Dose: 5,000 units Documented by: [id number] Cosigned by: [id number] Sodium Chloride (Nss 1000ml) 1,000 mls @ 100 mls/hr IV .Q10H [facility] Stop: 03/19/20 18:24 Last Admin: 03/18/20 23:05 Dose: 100 mls/hr Documented by: [id number] Insulin Aspart (Novolog Flexpen) 0 units SC ACHS [facility] Stop: 04/17/20 22:44 Last Admin: 03/18/20 23:39 Dose: 4 units Documented by: [id number] Cosigned by: [id number] Insulin Glargine (Lantus Solostar Pen) 5 units SC BID [facility] Stop: 04/17/20 22:24 Last Admin: 03/18/20 23:38 Dose: 5 units Documented by: [id number] Cosigned by: [id number] Pregabalin (Lyrica) 75 mg PO QID [facility] Stop: 04/17/20 22:24 Last Admin: 03/18/20 23:41 Dose: 75 mg Documented by: [id number] Discontinued Medications Albuterol (Ventolin 0.083% 2.5mg/3ml) 2.5 mg NEB NOW STA Stop: 03/18/20 20:42 Last Admin: 03/18/20 21:01 Dose: 2.5 mg Documented by: [id number] Dextrose (Dextrose 50%) 25 ml IV NOW STA Stop: 03/18/20 20:41 Last Admin: 03/18/20 20:52 Dose: 25 ml Documented by: [id number] Sodium Chloride (Nss) 500 mls @ 125 mls/hr IV .Q4H [facility] Stop: 04/17/20 20:44 Last Infusion: 03/18/20 23:24 Dose: 0 mls/hr Documented by: [id number] Admin: 03/18/20 20:53 Dose: 125 mls/hr Documented by: [id number] Insulin Human Regular (Novolin R U-100 Per Unit) 10 units IV NOW STA Stop: 03/18/20 20:41 Last Admin: 03/18/20 20:52 Dose: 10 units Documented by: [id number] Cosigned by: [id number] Medical Decision Making Differential Diagnosis Factitious hyperkalemia, MADELEINE, hemolysis, metabolic derangement Medical Records Attestation: I reviewed the patient's medical records. I did perform a limited focused review of portions of the patient's old chart on the electronic medical record. The patient was seen by myself in December for hyperkalemia as well. She had her potassium redrawn at that time and it was 5.3. She has had elevated potassiums intermittently since 2019. She had a potassium of 6.2 earlier today. Home Medications Current Medication List: was personally reviewed by me Laboratory Data Attestation: I reviewed the patient's lab results. Result diagrams: 03/18/20 22:30 03/18/20 22:30 Lab Results 03/18/20 03/18/20 Range/Units 19:45 21:32 Sodium 138 (136-145) mmol/L Potassium 6.4 H* (3.5-5.1) mmol/L Chloride 112 H (98-107) mmol/L Carbon Dioxide 19 L (21-32) mmol/L Anion Gap 8.0 (3-11) BUN 35 H (7-18) mg/dl Creatinine 1.64 H (0.6-1.2) mg/dl Est Cr Clr Drug Dosing Not Reportable Est GFR ( Amer) 39.5 Est GFR (Non-Af Amer) 34.1 BUN/Creatinine Ratio 21.1 H (10-20) Glucose 296 H (70-99) mg/dl POC Glucose 256 H (70-99) mg/dl Calcium 8.3 L (8.5-10.1) mg/dl ECG Data Attestation: I personally reviewed and interpreted this ECG as follows: Indication: + other (Hyperkalemia) Rate (beats per minute): 66 Rhythm: + normal sinus ECG [place]: + Left axis deviation ECG ST segments: no ST elevation ECG Findings: + Peaked T waves; no PVCs Blood Pressure Blood Pressure Findings: Elevated blood pressure Blood Pressure Disposition: Referred to patients primary care provider MDM Narrative I did evaluate the patient as noted above. The patient is asymptomatic. She had blood work drawn earlier today which showed a potassium of 6.2. Her creatinine was slightly elevated as well. IV access was established. I did place an order for continuous cardiac monitoring. The monitor showed normal sinus rhythm with a rate of 79. No dysrhythmia. I did order and personally review the patient's 12-lead EKG as described above. I did order and review the patient's blood work as noted in the electronic medical record. Potassium is 6.4. Her kidney function is worsening with a creatinine of 1.6. She has pancytopenia. She has hyperglycemia as well. I did discuss the test results with the patient. Because of her elevated potassium I did treat her with an albuterol nebulizer as well as insulin 10 units IV with half an amp of dextrose 50 IV as she states that she is prone to hypoglycemia. We did check her blood sugar afterwards and it remained elevated. I did discuss the case with the hospitalist and casework manager. Impression & Plan Acute hyperkalemia, Acute kidney injury superimposed on chronic kidney disease, Pancytopenia Discharge Plan Visit Data *Final* Discharge Date/Time: 03/18/20 21:55 Chief Complaint: Abnormal Labs/Diagnostic Testing Stated Complaint: HIGH POTASSIUM LEVELS, BLOOD DRAW ED Provider: Simone Pulido Discharge Problem: Acute hyperkalemia, Acute kidney injury superimposed on chronic kidney disease, Pancytopenia Patient Disposition: Admitted As Inpatient Discharge Instructions Interventions: ED Discharge Assessment Last Done: 03/18/20 21:55
[2020-03-18 20:32] LABS: BUN Creatinine Ratio 21.1 (10-20); Blood Urea Nitrogen 35 mg/dl (7-18); Calcium 8.3 mg/dl (8.5-10.1); Carbon Dioxide 19 mmol/L (21-32); Chloride 112 mmol/L (98-107); Est GFR (African American) 39.5; Est GFR (Non-African American) 34.1; Glucose 296 mg/dl (70-99); Potassium 6.4 mmol/L (3.5-5.1); Sodium 138 mmol/L (136-145)
[2020-03-18] MEDS ORDERED: NovoLIN-R INSULIN PER UNIT CHARGE IV STA (20:40)
[2020-03-18] MEDS ORDERED: DEXTROSE 50% 50 ML SYRINGE IV STA (20:40)
[2020-03-18] MEDS ORDERED: ALBUTEROL 0.083% NEBU SOLN 3 ML VIAL NEB STA (20:41)
[2020-03-18] MEDS ORDERED: SODIUM CHLORIDE 0.9% 500 ML IV SCH (20:45)
--- NOTE | 2020-03-18 21:40 | History & Physical Report ---
Date of Service March 18, 2020 Assessment & Plan (1) Hyperkalemia: 60yo C female s/p liver transplant 10/2018 on Sirolimus for immunosuppression presenting with hyperkalemia. K=6.4, no EKG changes. Patient's K has ranged from 5.2 - 6.4 over the last 5 months. Her renal function is slightly worse than prior with BUN=35 and Cr = 1.64 (up from 32 and 1.16 in January 2020). Patient appears euvolemic on exam. Ddx to include renal decline contributing to hyperkalemia, medication effects - patient is currently on Lisinopril. Was on Tacrolimus and CellCept until recently changed to Sirolimus. Administered Albuterol/Insulin/D50 and NSS in ER -Repeat chemistry at 23:00, treat K if elevated -Will hold Lisinopril for now -Nephrology consultation appreciated, patient has been seen by Dr. Sykes in the past Present on Admission?: Yes (2) Hyperglycemia: Patient reports a history of DM, uncertain if Type I or Type II. She was previously on insulin therapy. Her diabetes resolved after her liver trans plant. She has not been on insulin for the last 4-5 months and reports not taking any other medications for DM. Her last HgbA1c performed on 11/07/19 was 6.3. Blood sugar is elevated today at 296. Patient also had a steroid injection today -Lantus 5u BID, ISS -Goal blood sugar 100 - 140 -Check A1C Present on Admission?: Yes (3) Renal insufficiency: Mildly elevated BUN and Cr from baseline. Patient appears euvolemic on exam. ?medication effects -Check UA and culture if indicated -Check urine microscopy -Check urine Na and Cr for FeNA -Hold Lisinopril for now in setting of renal dysfunction and hyperkalemia -Monitor BUN/Cr/electrolytes and UOP -Nephrology consultation appreciated Present on Admission?: Yes (4) Liver transplant recipient: Patient with ESLD thought to be secondary to TORRES, possibly PBC s/p liver transplant performed at [facility] in [place] in October 2018. She was previously on Tacrolimus and CellCept until appx 1 week ago when she was switched to Sirolimus. -Continue Sirolimus -Check LFTs, INR in AM -Avoid hepatotoxic agents -Request labs/office notes from most recent transplant visit Present on Admission?: Yes (5) Peripheral neuropathy: Chronic. Stable -Continue Lyrica 75mg po QID F/E/N - NSS at 100mL/hr x 2 liters, monitor electrolytes, repeat BMP at 23:00 today to monitor K, check Mg and PO4 x 1, Low K diet as tolerated Ppx - Heparin sq Code - Full Dispo - Observation to medical floor with telemetry monitoring Present on Admission?: Yes Admission and Anticipated Discharge Date Admission Date: 03/18/20 Anticipated date of discharge: 03/20/20 History of Present Illness Chief Complaint: Hyperkalemia Primary Care Provider: She Davis DO Rhona Hendricks is a pleasant 60yo C female with history of liver transplant performed at [facility] in [place] on 10/13/18, currently on immunosuppressive therapy with Sirolimus. She had routine blood work drawn today and was notified by her physicians in [place] that she had to come to the ER as her potassium was 6.2. Labs were repeated here and her K=6.4. Patient has no acute complaints, specifically denies fevers/chills/STOUT/cough/SOB/chest pain/nausea/vomiting/diarrhea or constipation. She has been eating and drinking well. She tries to adhere to a low potassium diet - does not eat bananas, orange juice and avoids tomatoes. She does not use salt substitutes. She reports adequate UOP. No changes in urine, no fr equency/urgency/hematuria. ER Course: Albuterol, Insulin/D50, NSS Allergies Allergy/AdvReac Type Severity Reaction Status Date / Time Iodinated Contrast Media Allergy Intermediate Sneezing Verified 03/18/20 13:17 and breaks out into a rash Penicillins Allergy Intermediate Hives Verified 03/18/20 13:17 metformin Allergy Unknown Unknown Verified 03/18/20 13:17 Home Medications Home Medications Medication Instructions Recorded Confirmed Type pantoprazole 40 mg tablet,delayed 40 mg PO DAILY tab 11/15/19 03/18/20 History release magnesium oxide 400 mg PO DAILY 12/26/19 03/18/20 History cholecalciferol (vitamin D3) 50 4,000 unit PO DAILY #60 tab 01/29/20 03/18/20 Rx mcg (2,000 unit) tablet lisinopril 2.5 mg tablet 2.5 mg PO DAILY #30 tab 01/29/20 03/18/20 Rx pregabalin 75 mg capsule 75 mg PO QID #120 cap 01/30/20 02/22/20 Rx sirolimus PO 03/18/20 03/18/20 History Past Med/Surg History Medical History (Updated 03/18/20 @ 22:11 by Mery Gagnon DO) Anemia of chronic disease (Chronic) Bilateral foot-drop COPD (chronic obstructive pulmonary disease) (Chronic) Degenerative disc disease, lumbar (Chronic) Diabetes mellitus type 1, uncontrolled (Chronic) Diabetic neuropathy (Chronic) Esophageal varices GERD (gastroesophageal reflux disease) 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) MGUS (monoclonal gammopathy of unknown significance) (Acute) Osteoarthritis Osteopenia (Acute) Peripheral neuropathy (Chronic) Primary biliary cirrhosis Vitamin D deficiency (Acute) Surgical History (Updated 03/18/20 @ 21:52 by Mery Gagnon DO) History of section X 2 History of colonoscopy History of liver transplant History of tonsillectomy History of tooth extraction History of total abdominal hysterectomy and bilateral salpingo-oophorectomy Liver transplant recipient (Acute) [facility] 10/13/18 Nasal polyp X 3 REMOVED Family History Unknown Adopted Social History Preferred Language: Turkish Communication Ability: Effective Visual Impairment: No Limitations Pan Greaser Required: No Beliefs That Will Affect Care: None marital status: Current Living Situation: Spouse and Family Current Living Situation Comment: CHILDREN Feels Safe at Home: Yes Smoking Status: Never smoker Second Hand Exposure: No ; Hx Alcohol Use: No Hx Substance Use: No Review of Systems Review of Systems: All systems reviewed & are unremarkable except as noted in HPI & below Physical Exam Physical Exam: General: patient resting comfortably, NAD, non-toxic in appearance, AA&O x 4 Skin: warm, dry, intact, no rashes or lesions HEENT: NC/AT, PERRL, EOMI, anicteric sclera, conjunctiva without injection, external ear normal to inspection and nontender, nares patent, moist mucus membranes, dentition intact, no oropharyngeal lesions, neck supple, trachea midline, no LAD, no thyromegaly, no JVD Heart: +S1/S2, regular, no m/r/g Lungs: equal air entry bilaterally, no rales/rhonchi/wheezes Abd: +BS, soft, NT/ND, no masses/organomegaly/ascites Ext: warm, 2+ pulses in UE/LE bilaterally, no clubbing/cyanosis or edema Neuro: nonfocal, patient AA&O x 4, speech intact, no facial droop, moving all extremities on command with equal strength 5/5 Results & Data Results & Data ([facility]) Vital Signs (Past 12 Hours) Vital Signs Temp Pulse Pulse Resp BP Pulse Ox 03/18/20 21:01 70 14 98 03/18/20 20:10 67 16 03/18/20 20:00 83 17 147/96 H 03/18/20 19:50 67 21 03/18/20 19:47 78 20 03/18/20 19:46 70 20 152/97 H 03/18/20 19:43 66 17 147/86 H 03/18/20 19:42 69 16 03/18/20 19:11 36.8 C 79 18 133/81 99 Laboratory Results Lab Results 03/18/20 03/18/20 Range/Units 19:45 21:32 Sodium 138 (136-145) mmol/L Potassium 6.4 H* (3.5-5.1) mmol/L Chloride 112 H (98-107) mmol/L Carbon Dioxide 19 L (21-32) mmol/L Anion Gap 8.0 (3-11) BUN 35 H (7-18) mg/dl Creatinine 1.64 H (0.6-1.2) mg/dl Est Cr Clr Drug Dosing Not Reportable Est GFR ( Amer) 39.5 Est GFR (Non-Af Amer) 34.1 BUN/Creatinine Ratio 21.1 H (10-20) Glucose 296 H (70-99) mg/dl POC Glucose 256 H (70-99) mg/dl Calcium 8.3 L (8.5-10.1) mg/dl ECG Additional Comments: THe study shows NSR at 66, left axis deviation, FK=594, QRS=82, [id number], no acute ischemic changes, no EKG changes suggestive of hyperkalemia Code Status & VTE Plan Code Status FULL Patient does not want retirement life support. Does not wish to be coded if she has no chance of a meaningful recovery VTE Prophylaxis Plan VTE Prophylaxis will be ordered: Yes PG Care Time/CCT Total # of Minutes Spent Total Time Spent with Patient: Total time spent is greater than 50% in coordination of care (as documented) at patient's floor/unit and/or counseling patient: Coding Level of Care Code 49208 OBS Care - Level 3 Diagnoses Hyperkalemia E87.5 Hyperglycemia R73.9 Renal insufficiency N28.9 Liver transplant recipient Z94.4 Peripheral neuropathy G62.9 Peripheral neuropathy type: polyneuropathy, unspecified (1) Peripheral neuropathy Peripheral neuropathy type: polyneuropathy, unspecified Qualified Code(s): G62.9 - Polyneuropathy, unspecified
[2020-03-18] MEDS ORDERED: CARBOHYDRATES FOR HYPOGLYCEMIA PO PRN (22:25)
[2020-03-18] MEDS ORDERED: GLUCOSE 10 TABS/TUBE PO PRN (22:25)
[2020-03-18] MEDS ORDERED: ACETAMINOPHEN 325 MG TAB PO PRN (22:25)
[2020-03-18] MEDS ORDERED: DEXTROSE 50% 50 ML SYRINGE IV PRN (22:25)
[2020-03-18] MEDS ORDERED: GLUCAGON FOR INJ 1 MG VIAL SQ PRN (22:25)
[2020-03-18] MEDS ORDERED: GLUCOSE 40% GEL 15 GM TUBE PO PRN (22:25)
[2020-03-18 22:42] LABS: Hematocrit (blood only) 28.9 % (37-47); Hemoglobin 9.6 g/dL (12.0-16.0); Mean Corpuscular Hemoglobin 29.6 pg (25-34); Mean Corpuscular Hgb Conc 33.2 g/dL (32-36); Mean Corpuscular Volume 89.2 fL (80-100); RDW Coefficient of Variation 13.9 % (11.5-14.5); RDW Standard Deviation 46.1 fL (36.4-46.3); Red Blood Count 3.24 M/uL (4.2-5.4); White Blood Count 1.76 K/uL (4.8-10.8)
[2020-03-18 23:00] LABS: BUN Creatinine Ratio 21.7 (10-20); Calcium 8.5 mg/dl (8.5-10.1); Creatinine Clr Calc Pharmacy 33.7 ml/min; Est GFR (African American) 41.1; Est GFR (Non-African American) 35.4; Magnesium 1.6 mg/dl (1.8-2.4); Phosphorus 2.6 mg/dl (2.5-4.9)
[2020-03-18] MEDS: SODIUM CHLORIDE 0.9% 1000ML 1,000 ML IV SCH (23:05)
[2020-03-18 23:12] LABS: Mean Platelet Volume 11.1 fL (7.4-10.4); Platelet Count 58 K/uL (130-400)
[2020-03-18 23:14] LABS: Giant Platelets 1+; Lymphocytes # (auto) 0.43 K/uL (1.2-3.4); Lymphocytes % (auto) 24.4 %; Monocytes # (auto) 0.02 K/uL (0.11-0.59); Monocytes % (auto) 1.1 %; Neutrophils # (auto) 1.31 K/uL (1.4-6.5); Neutrophils % (auto) 74.5 %
[2020-03-18 23:25] LABS: Appearance Urine Clear (Clear); Bilirubin Urine Negative (Negative); Blood Urine Negative (Negative); Color Urine Yellow; Glucose Urine UA 3+ (Negative); Ketones Urine Negative (Negative); Leukocyte Esterase Urine Negative (Negative); Nitrite Urine Negative (Negative); Protein Urine Negative (Negative); Specific Gravity Urine 1.019 (1.000-1.030); Urobilinogen Urine Negative (Negative)
[2020-03-18 23:31] LABS: Bacteria Urine Automated Negative (Negative); Epithelial Cell Urine Auto 0-5 /lpf (0-5); RBC Urine Automated 0-4 /hpf (0-4); WBC Urine Automated 0 /hpf (0-5)
[2020-03-18] MEDS: INSULIN GLARGINE SOLOSTAR 100 UNITS/ML 3 ML PEN SC SCH (23:38)
[2020-03-18] MEDS: INSULIN ASPART 100 UNITS/ML 3 ML PEN SC SCH (23:39)
[2020-03-18] MEDS: HEPARIN SOD 5,000 UNIT/0.5 ML VIAL SQ SCH (23:41)
[2020-03-18] MEDS: PREGABALIN 75 MG CAP PO SCH (23:41)
[2020-03-19] MEDS: MAGNESIUM SULFATE / D5W 1 GM/100 ML BAG IV SCH ×2 (01:35→03:56)
[2020-03-19] MEDS: HEPARIN SOD 5,000 UNIT/0.5 ML VIAL SQ SCH ×4 (05:56→21:31)
[2020-03-19 07:07] LABS: Hematocrit (blood only) 26.3 % (37-47); Mean Corpuscular Hemoglobin 30.6 pg (25-34); Mean Corpuscular Hgb Conc 34.2 g/dL (32-36); Mean Corpuscular Volume 89.5 fL (80-100); RDW Coefficient of Variation 13.9 % (11.5-14.5); RDW Standard Deviation 46.4 fL (36.4-46.3); Red Blood Count 2.94 M/uL (4.2-5.4)
[2020-03-19 07:15] LABS: Mean Platelet Volume 11.8 fL (7.4-10.4); Platelet Count 53 K/uL (130-400)
[2020-03-19 07:31] LABS: Estimated Average Glucose 137 mg/dl; Hemoglobin A1C 6.4 % (4.5-5.6)
[2020-03-19 07:33] LABS: Lymphocytes % (auto) 23.5 %; Monocytes # (auto) 0.02 K/uL (0.11-0.59); Monocytes % (auto) 1.2 %; Neutrophils # (auto) 1.28 K/uL (1.4-6.5); Neutrophils % (auto) 75.3 %; RBC Morphology Unremarkable
[2020-03-19 07:51] LABS: Alanine Aminotransferase 19 U/L (12-78); Albumin Level 3.2 gm/dl (3.4-5.0); Alkaline Phosphatase 122 U/L (45-117); Aspartate Aminotransferase 17 U/L (15-37); BUN Creatinine Ratio 26.4 (10-20); Bilirubin Direct < 0.1 mg/dl (0-0.2); Bilirubin,Total 0.4 mg/dl (0.2-1); Blood Urea Nitrogen 35 mg/dl (7-18); Calcium 8.3 mg/dl (8.5-10.1); Carbon Dioxide 17 mmol/L (21-32); Chloride 116 mmol/L (98-107); Creatinine Clr Calc Pharmacy 40.1 ml/min; Est GFR (African American) 50.9; Glucose 234 mg/dl (70-99); Potassium 5.8 mmol/L (3.5-5.1); Sodium 140 mmol/L (136-145); Total Protein 6.3 gm/dl (6.4-8.2)
[2020-03-19] MEDS: PREGABALIN 75 MG CAP PO SCH ×4 (08:01→20:20)
[2020-03-19] MEDS: SIROLIMUS 0.5 MG TABLET PO SCH (08:02)
[2020-03-19] MEDS: INSULIN ASPART 100 UNITS/ML 3 ML PEN SC SCH ×4 (08:02→20:21)
[2020-03-19] MEDS: PANTOprazole 40 MG TAB PO SCH (08:02)
[2020-03-19] MEDS: INSULIN GLARGINE SOLOSTAR 100 UNITS/ML 3 ML PEN SC SCH ×2 (08:03→20:21)
[2020-03-19] MEDS: SODIUM CHLORIDE 0.9% 1000ML 1,000 ML IV SCH (08:09)
[2020-03-19] MEDS ORDERED: PATIROMER CALCIUM SORBITEX 8.4 GM PACK PO ONE (10:30)
[2020-03-19] MEDS: SODIUM CHLORIDE 0.45 % 1,000 ML, SODIUM BICARBONATE 8.4% 75 ML IV SCH ×2 (10:48→20:20)
--- NOTE | 2020-03-19 11:46 | Nephrology Consultation ---
Date of Consultation March 19, 2020 Assessment & Plan (1) Hyperkalemia: No EKG changes. Urine output appropriate. IV saline stopped. IV sodium bicarbonate started. Continue to document eyes and nose. Maintain low- potassium diet. Patiromer 8.4 grams x1 dose provided now. I will repeat a hold lisinopril. metabolic profile this afternoon. (2) Hyperglycemia: Management per primary team. (3) Renal insufficiency: Nonoliguric. UA bland and urine acellular. Volume status acceptable. Tolerating IV fluids. (4) Liver transplant recipient: Transplant coordinators Cielo ([phone]) or Aracelis Timmons ([phone]). Maintained on sirolimus for immunosuppression given history of cytopenias for which she follows with Hematology. History of Present Illness Reason for Consultation: MADELEINE, hyperkalemia Requesting Physician: Willa Mauro DO Attending Physician: Willa Mauro DO History of Present Illness Ms. Rhona Hendricks is a 60-year-old female with a history of primary biliary cirrhosis and end-stage liver disease. Rhona underwent orthotopic liver transplant at [facility]. Maintenance immunosuppression includes Sirolimus. Medical history is notable for chronic cytopenias, monoclonal gammopathy of undetermined significance, class 3 chronic kidney disease, diabetes mellitus, peripheral neuropathy, and osteoarthritis. Following a corticosteroid injection yesterday the patient developed hyperglycemia. She presented to the emergency department after laboratory studies obtained routinely by her transplant group revealed notable hyperkalemia. Is notable that Rhona has a history of some chronic hyperkalemia. She maintains a low-potassium diet. She follows in the [facility] as an outpatient with Dr. Sykes regarding chronic kidney disease. Baseline creatinine has been approximately 1.3 milligram/deciliter. [facility] she was provided IV insulin as well as IV fluids. There were no acute EKG changes. Urine output has been appropriate. Kidney function has been stable. No other electrolyte abnormalities were noted. Blood glucose remains slightly elevated but improving. Lisinopril has been held. Blood pressure is slightly elevated but acceptable. Volume status euvolemic. Patient's primary concerns time of my assessment was whether she would be discharged time for her daughter's high school graduation tomorrow afternoon. Overall, she feels well. She would like to stop lisinopril indefinitely. Allergies Allergy/AdvReac Type Severity Reaction Status Date / Time Iodinated Contrast Media Allergy Intermediate Sneezing Verified 03/18/20 13:17 and breaks out into a rash Penicillins Allergy Intermediate Hives Verified 03/18/20 13:17 metformin Allergy Unknown Unknown Verified 03/18/20 13:17 Home Medications Home Medications Medication Instructions Recorded Confirmed Type pantoprazole 40 mg tablet,delayed 40 mg PO QAM tab 11/15/19 03/18/20 History release magnesium oxide 400 mg PO .DAILY@ LUNCH 12/26/19 03/18/20 History pregabalin 75 mg capsule 75 mg PO QID #120 cap 01/30/20 03/18/20 Rx cholecalciferol (vitamin D3) 4,000 unit PO QAM 03/18/20 03/18/20 History lisinopril 2.5 mg PO QAM 03/18/20 03/18/20 History sirolimus 4 mg PO QAM 03/18/20 03/18/20 History Patient History Medical History Anemia of chronic disease (Chronic) Bilateral foot-drop COPD (chronic obstructive pulmonary disease) (Chronic) Degenerative disc disease, lumbar (Chronic) Diabetes mellitus type 1, uncontrolled (Chronic) Diabetic neuropathy (Chronic) Esophageal varices GERD (gastroesophageal reflux disease) 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) MGUS (monoclonal gammopathy of unknown significance) (Acute) Osteoarthritis Osteopenia (Acute) Peripheral neuropathy (Chronic) Primary biliary cirrhosis Vitamin D deficiency (Acute) Surgical History History of section X 2 History of colonoscopy History of liver transplant History of tonsillectomy History of tooth extraction History of total abdominal hysterectomy and bilateral salpingo-oophorectomy Liver transplant recipient (Acute) [facility] 10/13/18 Nasal polyp X 3 REMOVED Family History Unknown Adopted Social History Preferred Language: Citizen Of [place] Communication Ability: Effective Visual Impairment: No Limitations Fashion Designer Required: No Beliefs That Will Affect Care: None marital status: Current Living Situation: Spouse and Family Current Living Situation Comment: CHILDREN Feels Safe at Home: Yes Smoking Status: Never smoker Second Hand Exposure: No ; Hx Alcohol Use: No Hx Substance Use: No Review of Systems Review of Systems: All systems reviewed & are unremarkable except as noted in HPI & below Physical Exam Constitutional: well developed; no acute distress Eyes: no scleral abnormality and no corneal abnormality ENMT: Mouth: no oral mucosal abnormality and oral mucous membranes not dry Neck: normal visual inspection and trachea midline Respiratory: normal respiratory effort Auscultation: lungs clear to auscultation bilaterally Cardiovascular: Rate/Rhythm: regular rate Heart Sounds: normal S1 and normal S2 Extremities: no edema Musculoskeletal: Extremities: no cyanosis and no clubbing Skin: normal turgor; no lesions Neurologic: Motor/Sensory: no tremor and no asterixis Psychiatric: Orientation: alert and oriented x 3 Results & Data Vital Signs (Past 12 Hours) Vital Signs Temp Pulse Pulse Resp BP Pulse Ox 03/19/20 10:50 36.6 C 78 18 140/76 97 03/19/20 07:39 37.1 C 78 85 18 156/81 H 97 03/19/20 04:15 36.7 C 85 18 132/71 97 03/19/20 00:19 91 H PG Care Time/CCT Total # of Minutes Spent Total Time Spent with Patient: Total time spent is greater than 50% in coordination of care (as documented) at patient's floor/unit and/or counseling patient: Coding Level of Care Code 55691 Inpt Consult Level 4 Diagnoses Hyperkalemia E87.5 Hyperglycemia R73.9 Renal insufficiency N28.9 Liver transplant recipient Z94.4
--- NOTE | 2020-03-19 15:44 | Electrocardiogram Report ---
Test Reason : Blood Pressure : / mmHG Vent. Rate : 066 BPM Atrial Rate : 066 BPM P-R Int : 164 ms QRS Dur : 082 ms QT Int : 410 ms P-R-T Axes : 052 -43 036 degrees QTc Int : 429 ms Poor data quality, interpretation may be adversely affected Normal sinus rhythm Left axis deviation Abnormal ECG When compared with ECG of 03-JAN-2020 20:44, Borderline criteria for Lateral infarct are no longer Present Nonspecific T wave abnormality no longer evident in Anterior leads Confirmed by Johnny Obrien ([id number]) on 03/19/2020 3:44:15 PM Referred By: REFERRED SELF Confirmed By:Jose Obrien
--- NOTE | 2020-03-19 17:55 | Hospitalist Progress Note ---
Date of Service March 19, 2020 Assessment & Plan (1) Hyperkalemia: 60yo C female s/p liver transplant 10/2018 on Sirolimus for immunosuppression presenting with hyperkalemia. K=6.4, no EKG changes. Patient's K has ranged from 5.2 - 6.4 over the last 5 months. Her renal function is slightly worse than prior with BUN=35 and Cr = 1.64 (up from 32 and 1.16 in January 2020). Patient appears euvolemic on exam. Ddx to include renal decline contributing to hyperkalemia, medication effects - patient is currently on Lisinopril. Was on Tacrolimus and CellCept until recently changed to Sirolimus. Administered Albuterol/Insulin/D50 and NSS in ER -Repeat chemistry at 23:00, treat K if elevated -Will hold Lisinopril for now -Nephrology agrees with current plan (2) Hyperglycemia: Patient reports a history of DM, uncertain if Type I or Type II. She was previously on insulin therapy. Her diabetes resolved after her liver transplant. She has not been on insulin for the last 4-5 months and reports not taking any other medications for DM. Her last HgbA1c performed on 11/07/19 was 6.3. Blood sugar is elevated today at 296. Patient also had a steroid injection today -Lantus 5u BID, ISS -Goal blood sugar 100 - 140 -A1c 6.4 (3) Renal insufficiency: Mildly elevated BUN and Cr from baseline, improved s/p IVF Patient appears euvolemic on exam. ?medication effects -Check UA and culture if indicated -Check urine microscopy -Check urine Na and Cr for FeNA -Hold Lisinopril for now in setting of renal dysfunction and hyperkalemia -Monitor BUN/Cr/electrolytes and UOP -Nephrology consultation appreciated (4) Liver transplant recipient: Patient with ESLD thought to be secondary to TORRES, possibly PBC s/p liver transplant performed at [facility] in [place] in October 2018. She was previously on Tacrolimus and CellCept until appx 1 week ago when she was switched to Sirolimus. -Continue Sirolimus -LFTs/INR WNL -Avoid hepatotoxic agents -Request labs/office notes from most recent transplant visit (5) Peripheral neuropathy: Chronic. Stable -Continue Lyrica 75mg po QID F/E/N - NSS at 100mL/hr x 2 liters, monitor electrolytes, repeat BMP at 23:00 today to monitor K, check Mg and PO4 x 1, Low K diet as tolerated Ppx - Heparin sq Code - Full Dispo - Observation to medical floor with telemetry monitoring Admission and Anticipated Discharge Date Admission Date: March 18, 2020 Subjective Pt states she feels fine. She states that she was having routine labs done to monitor functions related to her transplant suppressive medication change and was alerted of the abnormality. Pt denies fever, SOB, chest pain, abd pain, n/v/c/d, LE pain or swelling. Tolerating PO without issue. Review of Systems Review of Systems: Pertinent positives and negatives reviewed in HPI--all others negative Physical Exam Constitutional: WD/WN, vitals as above Eyes: normal visual acharya by confrontation and + anicteric sclerae Neck: normal visual inspection and trachea midline Respiratory: normal respiratory effort, lungs clear to auscultation Cardiovascular: Rate/Rhythm: regular rate and regular rhythm Gastrointestinal (Abdomen): Inspection/Auscultation: abdomen not distended Percussion/Palpation: abdomen soft; abdomen nontender Musculoskeletal: Head/Neck/Chest: normocephalic and head atraumatic negative for edema, peripheral pulses intact Skin: no rashes, warm and dry Neurologic: awake; not confused Speech / Cognition: normal speech Psychiatric: A+Ox3, euthymic affect Results & Data Results & Data ([facility]) Vital Signs (Past 12 Hours) Vital Signs Temp Pulse Pulse Resp BP BP Pulse Ox 03/19/20 15:13 79 03/19/20 15:08 36.6 C 74 18 137/77 99 03/19/20 10:50 36.6 C 78 18 140/76 97 03/19/20 07:39 37.1 C 78 85 18 156/81 H 97 PG Care Time/CCT Total # of Minutes Spent Total Time Spent with Patient: Total time spent is greater than 50% in coordination of care (as documented) at patient's floor/unit and/or counseling patient: Coding Level of Care Code 08337 Subseq Hosp Care Lvl 3 Diagnoses Hyperkalemia E87.5 Hyperglycemia R73.9 Renal insufficiency N28.9 Liver transplant recipient Z94.4 Peripheral neuropathy G62.9 Peripheral neuropathy type: polyneuropathy, unspecified (1) Peripheral neuropathy Peripheral neuropathy type: polyneuropathy, unspecified Qualified Code(s): G62.9 - Polyneuropathy, unspecified
[2020-03-19 18:39] LABS: BUN Creatinine Ratio 28.2 (10-20); Calcium 8.6 mg/dl (8.5-10.1); Creatinine Clr Calc Pharmacy 39.5 ml/min; Est GFR (Non-African American) 43.2; Potassium 5.7 mmol/L (3.5-5.1)
[2020-03-20] MEDS: SODIUM CHLORIDE 0.45 % 1,000 ML, SODIUM BICARBONATE 8.4% 75 ML IV SCH (06:34)
[2020-03-20] MEDS: SIROLIMUS 0.5 MG TABLET PO SCH (08:08)
[2020-03-20] MEDS: PREGABALIN 75 MG CAP PO SCH (08:08)
[2020-03-20] MEDS: PANTOprazole 40 MG TAB PO SCH (08:09)
[2020-03-20] MEDS: INSULIN ASPART 100 UNITS/ML 3 ML PEN SC SCH (08:09)
[2020-03-20] MEDS: INSULIN GLARGINE SOLOSTAR 100 UNITS/ML 3 ML PEN SC SCH (08:11)
[2020-03-20 08:50] LABS: BUN Creatinine Ratio 31.6 (10-20); Calcium 8.7 mg/dl (8.5-10.1); Creatinine Clr Calc Pharmacy 42.5 ml/min; Est GFR (African American) 53.9; Est GFR (Non-African American) 46.5; Magnesium 2.1 mg/dl (1.8-2.4); Phosphorus 3.1 mg/dl (2.5-4.9); Potassium 4.7 mmol/L (3.5-5.1)
[2020-03-20] MEDS ORDERED: PATIROMER CALCIUM SORBITEX 8.4 GM PACK PO SCH (09:00)
--- NOTE | 2020-03-20 10:28 | Nephrology Progress Note ---
Date of Service March 20, 2020 Assessment & Plan (1) Hyperkalemia: Improved with medical management. Close output follow up will be required. Rhona expressed understanding. She would like to follow up with Dr. Sykes in [place]. Blood work for transplant scheduled for tomorrow - metabolic profile will be faxed to the nephrology office ([phone]). Please schedule follow up with Dr. Sykes within 1-2 weeks of discharge. Continue to hold lisinopril. Unclear whether a type 4 RTA may be present but suspected unlikely. Will continue oral NaHCO3 1300 mg BID pending follow up evaluation. Maintain low potassium diet. (2) Hyperglycemia: Improved. (3) Renal insufficiency: Volume status acceptable. Creatinine stable at baseline. No additional changes at this time. Follow up in the outpatient clinic within 1-2 weeks. (4) Liver transplant recipient: Transplant coordinators Cielo ([phone]) or Aracelis Timmons ([phone]). Maintained on sirolimus for immunosuppression given history of cytopenias for which she follows with Hematology. Admission and Anticipated Discharge Date Admission Date: March 18, 2020 Subjective No acute events overnight. Feels well. Excellent urine output. BP acceptable. Asking to be discharged in time for granddaughter's high school graduation tonight. Review of Systems Review of Systems: All systems reviewed & are unremarkable except as noted in HPI & below Physical Exam Constitutional: well developed; no acute distress Eyes: no scleral abnormality and no corneal abnormality ENMT: Mouth: no oral mucosal abnormality and oral mucous membranes not dry Neck: normal visual inspection and trachea midline Respiratory: normal respiratory effort Auscultation: lungs clear to auscultation bilaterally Cardiovascular: Rate/Rhythm: regular rate Heart Sounds: normal S1 and normal S2 Extremities: no edema Musculoskeletal: Extremities: no cyanosis and no clubbing Skin: normal turgor; no lesions Neurologic: Motor/Sensory: no tremor and no asterixis Psychiatric: Orientation: alert and oriented x 3 Results & Data ([facility]) Vital Signs (Past 12 Hours) Vital Signs Temp Pulse Pulse Resp BP Pulse Ox 03/20/20 04:55 36.6 C 71 18 127/71 98 03/20/20 01:16 67 Laboratory Results Laboratory Results - last 24 hr 03/19/20 03/19/20 03/19/20 11:24 16:29 17:52 Sodium 140 Potassium 5.7 H Chloride 113 H Carbon Dioxide 19 L Anion Gap 8.0 BUN 38 H Creatinine 1.35 H Est Cr Clr Drug Dosing 39.5 Est GFR ( Amer) 50.0 Est GFR (Non-Af Amer) 43.2 BUN/Creatinine Ratio 28.2 H Glucose 202 H POC Glucose 243 H 144 H Calcium 8.6 Phosphorus Magnesium Total Creatine Kinase 03/19/20 03/20/20 03/20/20 20:08 07:37 07:50 Sodium 143 Potassium 4.7 D Chloride 114 H Carbon Dioxide 20 L Anion Gap 9.0 BUN 40 H Creatinine 1.27 H Est Cr Clr Drug Dosing 42.5 Est GFR ( Amer) 53.9 Est GFR (Non-Af Amer) 46.5 BUN/Creatinine Ratio 31.6 H Glucose 108 H POC Glucose 206 H 115 H Calcium 8.7 Phosphorus 3.1 Magnesium 2.1 Total Creatine Kinase 314 H PG Care Time/CCT Total # of Minutes Spent Total Time Spent with Patient: Total time spent is greater than 50% in coordination of care (as documented) at patient's floor/unit and/or counseling patient: Coding Level of Care Code 32058 Subseq Hosp Care Lvl 3 Diagnoses Hyperkalemia E87.5 Hyperglycemia R73.9 Renal insufficiency N28.9 Liver transplant recipient Z94.4
--- NOTE | 2020-03-20 11:11 | Discharge Summary ---
Date of Service March 20, 2020 Admission HPI Per Admitting Provider Rhona Hendricks is a pleasant 60yo C female with history of liver transplant performed at [facility] in [place] on 10/13/18, currently on immunosuppressive therapy with Sirolimus. She had routine blood work drawn today and was notified by her physicians in [place] that she had to come to the ER as her potassium was 6.2. Labs were repeated here and her K=6.4. Patient has no acute complaints, specifically denies fevers/chills/STOUT/cough/SOB/chest pain/nausea/vomiting/diarrhea or constipation. She has been eating and drinking well. She tries to adhere to a low potassium diet - does not eat bananas, orange juice and avoids tomatoes. She does not use salt substitutes. She reports adequate UOP. No changes in urine, no frequency/urgency/hematuria. ER Course: Albuterol, Insulin/D50, NSS Principal Diagnosis Pt continues to feel fine. Pt denies fever, SOB, chest pain, abd pain, n/v/c/d, LE pain or swelling. No issues with eating. She would like to go home as her daughter is graduating from high school this evening. Discharge Exam Constitutional WD/WN, vitals as above Eyes normal visual acharya by confrontation and + anicteric sclerae Neck normal visual inspection and trachea midline Respiratory normal respiratory effort, lungs clear to auscultation Cardiovascular Rate/Rhythm: regular rate and regular rhythm Gastrointestinal (Abdomen) Inspection/Auscultation: abdomen not distended Percussion/Palpation: abdomen soft; abdomen nontender Musculoskeletal Head/Neck/Chest: normocephalic and head atraumatic Skin no rashes, warm and dry Neurologic awake; not confused Speech / Cognition: normal speech Psychiatric A+Ox3, euthymic affect Discharge Data Allergies Allergy/AdvReac Type Severity Reaction Status Date / Time Iodinated Contrast Media Allergy Intermediate Sneezing Verified 03/18/20 13:17 and breaks out into a rash Penicillins Allergy Intermediate Hives Verified 03/18/20 13:17 metformin Allergy Unknown Unknown Verified 03/18/20 13:17 Consultations 03/18/20 20:42 ED Decision to Admit Stat 03/18/20 22:25 Consult Nephrology Routine Hospital Course (1) Hyperkalemia: 60yo C female s/p liver transplant 10/2018 on Sirolimus for immunosuppression presenting with hyperkalemia. K=6.4, no EKG changes. Patient's K has ranged from 5.2 - 6.4 over the last 5 months. Her renal function is slightly worse than prior with BUN=35 and Cr = 1.64 (up from 32 and 1.16 in January 2020). Patient appears euvolemic on exam. Ddx to include renal decline contributing to hyperkalemia, medication effects - patient is currently on Lisinopril. Was on Tacrolimus and CellCept until recently changed to Sirolimus. Administered Albuterol/Insulin/D50 and NSS in ER Resolved and 4.7 on d/c Renal recs for BID bicarb as outpt and f/u next week Pt has labs scheduled tomorrow with transplant team (2) Hyperglycemia: Patient reports a history of DM, uncertain if Type I or Type II. She was previously on insulin therapy. Her diabetes resolved after her liver transplant. She has not been on insulin for the last 4-5 months and reports not taking any other medications for DM. Her last HgbA1c performed on 11/07/19 was 6.3. Blood sugar is elevated on admission at 296, but in the low 100s fasting today. Patient had a steroid injection day of admission as well which likely contributed. -A1c 6.4 (3) Renal insufficiency: Mildly elevated BUN and Cr from baseline, improved s/p IVF and 1.2 on d/c Hold lisinopril Advised to limit caffeine (4) Liver transplant recipient: Patient with ESLD thought to be secondary to TORRES, possibly PBC s/p liver transplant performed at [facility] in [place] in October 2018. She was previously on Tacrolimus and CellCept until appx 1 week ago when she was switched to Sirolimus. -Continue Sirolimus -LFTs/INR WNL (5) Peripheral neuropathy: Chronic. Stable -Continue Lyrica 75mg po QID Total Time Total Time Spent Total Time Spent (In Minutes): >30 Total Time Includes: Examination of the Patient, Discharge Planning, Medication Reconciliation, Communication With Other Providers and Other Discharge Plan Discharge Items Patient Disposition: Home - Self-Care Reason For Visit: HYPERKALEMIA Discharge Diagnosis: Hyperkalemia, acute renal failure Activity: Resume your previous activity Non-emergency contact: Primary Care Provider and Mortar Man Call non-emergency contact if: you have any medication questions Follow-up/Referrals: She Davis, [Primary Care Provider] - Roxy Sykes MD [Physician] - (next week) Diet: Regular Diet Comment: You should limit your caffeine intake Addtl Attending Provider Instructions: You should have your labs drawn tomorrow as you had already planned prior to coming to the hospital Pending Studies at Discharge: No Stand-Alone Forms: My [facility], Smoking Cessation Medications and DC Order Prescriptions: New sodium bicarbonate 650 mg Tablet 1,300 mg PO BID Qty: 120 RF: 0 Continued pregabalin 75 mg capsule 75 mg PO QID Qty: 120 RF: 3 cholecalciferol (vitamin D3) 50 mcg (2,000 unit) tablet 4,000 unit PO QAM RF: 0 sirolimus 1 mg tablet 4 mg PO QAM RF: 0 pantoprazole 40 mg tablet,delayed release (DR/EC) 40 mg PO QAM RF: 0 magnesium oxide 400 mg (241.3 mg magnesium) tablet 400 mg PO .DAILY@ LUNCH RF: 0 Discontinued lisinopril 2.5 mg tablet 2.5 mg PO QAM RF: 0 Discharge Orders: Discharge Order (Routine); Ordered 03/20/20 Ordered By: Willa Holly/Other Patient Handouts: Hyperglycemia, Diabetes Type 2 Managing, Diabetes Meal Planning Admission Data Admit Date/Time: 03/18/20 21:33 Attending Provider: Willa Mauro Admit Provider: Mery Gagnon Primary Care Provider: She Davis Other Providers: Mery Gagnon ; Roxy Sykes Other Interventions: Discharge Summary Assessment (RN) Last Done: 03/20/20 11:12 DC Date/Time DO NOT enter until pt leaves facility: 03/20/20 12:30 Coding Level of Care Code D/C Day Management >30 mins Diagnoses Hyperkalemia E87.5 Hyperglycemia R73.9 Renal insufficiency N28.9 Liver transplant recipient Z94.4 Peripheral neuropathy G62.9 Peripheral neuropathy type: polyneuropathy, unspecified
[2020-03-20] MEDS ORDERED: SODIUM BICARBONATE 650 MG TAB PO SCH (21:00)
== END 2020-03-20 12:30 | disposition home or self-care (01) ==
LOC: 2N 18:53 → ED 18:53 → SUATTDRO 21:33 → 2N 21:55 → 2W 03-19 01:15

== ENCOUNTER 2022-03-31 02:33 | Observation (INO) ==
[2022-03-31] MEDS ORDERED: ACETAMINOPHEN 500 MG TAB PO STA (02:58)
[2022-03-31] MEDS ORDERED: ONDANSETRON INJ 2 MG/ML 2 ML VIAL IV STA (03:32)
[2022-03-31] MEDS ORDERED: MoRPHine SULFATE 4 MG/ML 1 ML CARP\\VIAL IV PRN ×2 (03:32→09:30)
[2022-03-31] MEDS ORDERED: LORazepam 2 MG/1 ML VIAL IV STA (03:43)
--- NOTE | 2022-03-31 03:50 | Emergency Department Note ---
History of Present Illness General Chief complaint: Fall Time Seen by Provider: 03/31/22 02:54 History of Present Illness Maximum Pain Intensity: 9 This is a medically complicated 62-year-old female presenting to the emergency department for evaluation of fall and right knee injury that occurred roughly 4 to 5 hours prior to arrival. The patient states that she was at home when she tripped, fell forward and landed awkwardly on the right knee. The patient has a past history of chronic kidney disease, diabetes, liver transplant, severe neuropathy and bilateral foot drop. She has significant ambulatory difficulties at baseline and typically uses braces and a walker to move. The patient is not on blood thinners. She does arrive to the ER via ambulance and states she did take a baby aspirin at home without any improvement of her pain. She rates the discomfort a 9/10. The patient is not able to move her right lower leg at the knee. She does not have hip or pelvic discomfort. She does not believe that she hit her head. Home Medications Medication Instructions Recorded Confirmed Type lancets 33 gauge (OneTouch Delica #100 ea 08/23/20 03/26/22 Rx Plus Lancet) pantoprazole 40 mg tablet,delayed 40 mg PO DAILY 09/04/20 03/31/22 History release pen needle, diabetic 32 gauge x #360 ea 04/04/21 03/26/22 Rx 5/32" (BD Ultra-Fine Leilani Pen Needle) insulin glargine 100 unit/mL (3 24 unit SUBCUT QPM box 06/09/21 03/31/22 History mL) subcutaneous pen (Lantus Solostar U-100 Insulin) blood sugar diagnostic (OneTouch #100 ea 06/19/21 03/26/22 Rx Verio test strips) tacrolimus 1 mg capsule, 1 mg PO .COMPLEX #270 cap 10/29/21 03/31/22 Rx immediate-release duloxetine 20 mg capsule,delayed 20 mg PO HS #90 cap 02/25/22 03/31/22 Rx release solifenacin 5 mg tablet (Vesicare) 5 mg PO DAILY #90 tab 03/04/22 03/31/22 Rx Allergies Allergy/AdvReac Type Severity Reaction Status Date / Time Iodinated Contrast Media Allergy Intermediate Sneezing Verified 03/26/22 13:01 and breaks out into a rash Penicillins Allergy Intermediate Hives Verified 03/26/22 13:01 metformin Allergy Unknown Unknown Verified 03/26/22 13:01 Past Med/Surg History Medical History Anemia of chronic disease Bilateral foot-drop COPD (chronic obstructive pulmonary disease) Degenerative disc disease, lumbar Diabetic neuropathy Esophageal varices GERD (gastroesophageal reflux disease) 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) Lumbar pain with radiation down both legs MGUS (monoclonal gammopathy of unknown significance) Osteoarthritis Osteopenia Peripheral neuropathy Primary biliary cirrhosis SARS-CoV-2 positive Urinary incontinence, urge Vitamin D deficiency Surgical History History of section X 2 History of colonoscopy History of liver transplant History of lumbar laminectomy for spinal cord decompression (04/22/21) L3-L5 laminectomy History of tonsillectomy History of tooth extraction History of total abdominal hysterectomy and bilateral salpingo-oophorectomy Liver transplant recipient [facility] 10/13/18 Nasal polyp X 3 REMOVED Family History Unknown Adopted Social History Smoking Status: Never smoker Second Hand Exposure: No; Hx Alcohol Use: No Hx Substance Use: No Preferred Language: Romanian Communication Ability: Effective Visual Impairment: No Limitations Hearing Ability: Hard of Hearing Fisher Required: No Beliefs That Will Affect Care: None marital status: Current Living Situation: Spouse Current Living Situation Comment: Lives with current occupational status: employed How many Children do You have: 3 Feels Safe at Home: Yes Childhood Exposure to Second-Hand Smoke: No caffeine: Yes during the past year weight has: remained stable Dental Care, Regularly: No Physical Activity Frequency: Daily Seatbelt Use: always Sunscreen Use: No Assistive Devices: Brace/Splint/Immobilizer, Cane and Glasses Review of Systems A total of 10 systems reviewed and were otherwise negative Physical Exam Vital Signs Vital Signs - 24 hr 03/31/22 02:43 03/31/22 04:00 Temperature 36.9 C Temperature Source Oral Pulse Rate 87 Pulse Rate [Apical] 87 Pulse Rhythm Regular Pulse Rhythm [Apical] Regular Pulse Strength Normal Pulse Strength [Apical] Normal Respiratory Rate 18 16 Respiratory Effort / Characteristics Non-Labored Spontaneous Non-Labored Spontaneous Respiratory Depth Normal Normal Respiratory Pattern Regular Regular Blood Pressure 185/93 H Blood Pressure [Right Arm] 163/103 H Blood Pressure Mean 123 Blood Pressure Mean [Right Arm] 123 Blood Pressure Position Semi-fowlers Blood Pressure Position [Right Arm] Semi-fowlers Pulse Oximetry 98 97 Oxygen Delivery Method Room Air Room Air Sepsis Recent Fever Within 48 Hours No Sepsis New/Unexplained Change in Mental Status No Sepsis Action Taken by Nursing No Action Required VITALS: Vitals are noted on the nurse's note and reviewed by myself. Vital signs stable. GENERAL: White female who appears much older than her stated age. She is moderately uncomfortable but overall pleasant. HEAD: Normocephalic atraumatic. NECK: Supple without nuchal rigidity. No lymphadenopathy. No thyromegaly. Cervical spine is nontender. HEART: Regular rate and rhythm without murmurs gallops or rubs. LUNGS: Clear to auscultation bilaterally without wheezes, rales or rhonchi. No retractions or accessory muscle use. MUSCULOSKELETAL: Notable tenderness and edema primarily in the suprapatellar space of the right knee. Patient is unable to flex at the right knee. There is mild lateral tenderness but not nearly as significant as the suprapatellar ten derness. Vascular status appears intact distally. NEURO: Patient was alert and oriented to person place and time. CN II through XII grossly intact. Course Administered Medications Duloxetine HCl (Duloxetine Hcl 20 Mg Cap) 20 mg PO [facility] Stop: 04/30/22 20:59 Last Admin: 03/31/22 21:42 Dose: 20 mg Documented by: [id number] Insulin Aspart (Insulin Aspart Per Unit) 0 units SC ACHS [facility]ACIN[facility] Stop: 04/30/22 09:29 Last Admin: 03/31/22 21:43 Dose: Not Given Documented by: [id number] Cosigned by: [id number] Admin: 03/31/22 17:43 Dose: 4 units Documented by: [id number] Cosigned by: [id number] Admin: 03/31/22 11:59 Dose: 1 units Documented by: [id number] Cosigned by: [id number] Admin: 03/31/22 11:49 Dose: 1 units Documented by: [id number] Cosigned by: [id number] Insulin Glargine (Insulin Glargine Solostar 100 Units/Ml 3 Ml Pen) 7 units SC BID [facility] Stop: 04/30/22 10:14 Last Admin: 03/31/22 21:42 Dose: 7 units Documented by: [id number] Cosigned by: [id number] Admin: 03/31/22 11:51 Dose: 7 units Documented by: [id number] Cosigned by: [id number] Miscellaneous (Vesicare 5mg ~ Order Awaiting Action) 1 ea N/A QS [facility] Stop: 04/30/22 15:59 Last Admin: 03/31/22 17:48 Dose: Not Given Documented by: [id number] Pantoprazole Sodium (Pantoprazole 40 Mg Tab) 40 mg PO DAILY [facility] Stop: 04/30/22 09:29 Last Admin: 03/31/22 11:48 Dose: 40 mg Documented by: [id number] Tacrolimus (Tacrolimus 1 Mg Cap) 1 mg PO HS [facility] Stop: 04/30/22 20:59 Last Admin: 03/31/22 21:42 Dose: 1 mg Documented by: [id number] Tacrolimus (Tacrolimus 1 Mg Cap) 2 mg PO QAM [facility] Stop: 04/30/22 10:29 Last Admin: 03/31/22 11:49 Dose: 2 mg Documented by: [id number] Discontinued Medications Acetaminophen (Acetaminophen 500 Mg Tab) 1,000 mg PO NOW STA Stop: 03/31/22 02:59 Last Admin: 03/31/22 03:03 Dose: 1,000 mg Documented by: [id number] Lorazepam (Lorazepam 2 Mg/1 Ml Vial) 0.5 mg IV NOW STA; Protocol Stop: 03/31/22 03:44 Last Admin: 03/31/22 04:12 Dose: 0.5 mg Documented by: [id number] Morphine Sulfate (Morphine Sulfate 4 Mg/Ml 1 Ml Carp\\Vial) 4 mg IV Q30M PRN PRN Reason: Pain Stop: 04/14/22 03:31 Last Admin: 03/31/22 03:59 Dose: 4 mg Documented by: [id number] Ondansetron HCl (Ondansetron Inj 2 Mg/Ml 2 Ml Vial) 4 mg IV NOW STA Stop: 03/31/22 03:33 Last Admin: 03/31/22 03:57 Dose: 4 mg Documented by: [id number] Medical Decision Making Differential Diagnosis Differential diagnosis includes, but is not limited to: Sprain, strain, fracture, dislocation, subluxation, contusion, and others Laboratory Data Result diagrams: 03/31/22 03:54 03/31/22 03:54 Lab Results 03/31/22 03/31/22 03/31/22 Range/Units 03:54 03:54 03:54 WBC 4.77 L (4.8-10.8) K/uL RBC 3.53 L (4.2-5.4) M/uL Hgb 11.1 L (12.0-16.0) g/dL Hct 31.3 L (37-47) % MCV 88.7 (80-100) fL MCH 31.4 (25-34) pg MCHC 35.5 (32-36) g/dL RDW Std Deviation 43.1 (36.4-46.3) fL RDW Coeff of Paty 13.3 (11.5-14.5) % Plt Count 113 L (130-400) K/uL MPV 10.6 H (7.4-10.4) fL Immature Gran % (Auto) 1.3 % Neut % (Auto) 68.9 % Lymph % (Auto) 23.1 % [place] % (Auto) 5.0 % Eos % (Auto) 1.5 % Baso % (Auto) 0.2 % Neut # (Auto) 3.29 (1.4-6.5) K/uL Lymph # (Auto) 1.10 L (1.2-3.4) K/uL [place] # (Auto) 0.24 (0.11-0.59) K/uL Eos # (Auto) 0.07 (0-0.5) K/uL Baso # (Auto) 0.01 (0-0.2) K/uL Immature Gran # (Auto) 0.06 H (0.00-0.02) K/uL RBC Morphology Unremarkable Sodium 137 (136-145) mmol/L Potassium 4.9 (3.5-5.1) mmol/L Chloride 106 (98-107) mmol/L Carbon Dioxide 23 (21-32) mmol/L Anion Gap 8 (3-11) BUN 35 H (6-23) mg/dl Creatinine 1.28 H (0.6-1.2) mg/dl Est Cr Clr Drug Dosing 40.5 ml/min Est GFR ( Amer) 52.6 ml/min Est GFR (Non-Af Amer) 45.4 ml/min BUN/Creatinine Ratio 27.3 H (10-20) Glucose 200 H (70-99(Fasting)) mg/dl Calcium 8.9 (8.5-10.1) mg/dl Total Bilirubin 0.8 (0.2-1.0) mg/dl AST 21 (13-39) U/L ALT 11 (7-52) U/L Alkaline Phosphatase 69 (34-104) U/L Total Protein 6.7 (6.0-8.3) gm/dl Albumin 4.0 (3.4-5.0) gm/dl Globulin 2.7 (2.5-4.0) gm/dl Albumin/Globulin Ratio 1.5 (0.9-2) SARS-CoV-2, RNA, NAAT NEGATIVE (NEGATIVE) Imaging Data Radiologist's Impression: Knee X-Ray 03/31/22 02:54 XR knee RT 3V HISTORY: 62 years-old Female fall. pain. Acute right knee pain status post fall COMPARISON: MRI of the right femur of same day TECHNIQUE: 3 views of the right knee FINDINGS: There is a large lipohemarthrosis of the knee. Mild lateral tilt of the patella within the trochlear groove. There is an acute comminuted intra-articular nondisplaced patellar fracture. Mild tricompartmental osteoarthritis. No additional acute fracture or dislocation. Mild prepatellar soft tissue prominence. IMPRESSION: 1. Acute comminuted nondisplaced intra-articular patellar fracture. 2. Large lipohemarthrosis. ACT 112: Negative or not required by law. The above report was generated using voice recognition software. It may contain grammatical, syntax or spelling errors. Electronically signed by: Timbo Sanchez M.D. 03/31/2022 6:44 AM Femur MRI 03/31/22 03:43 MR femur RT wo con HISTORY: 62 years-old Female eval for quadriceps tendon rupture vs other acute right knee pain status post fall COMPARISON: Right knee radiographs of same day TECHNIQUE: Multiplanar multisequence MRI of the right femur was obtained without the use of IV contrast. FINDINGS: There is a large lipohemarthrosis of the knee. This study is not tailored to assess the intrinsic structures of the right hip or knee. There is suspected mild osteoarthritis of the right hip and knee. There is an acute comminuted intra-articular nondisplaced fracture involving the patella with fracture lines noted extending proximal to distal. Extensive associated marrow edema. Mild prepatellar and proximal pretibial subcutaneous edema. Trace Shaw's cyst. Mild lateral tilt of the patella within the trochlear groove. No intramuscular hematoma identified. The imaged ligaments and tendons appear unremarkable. IMPRESSION: 1. Acute comminuted nondisplaced intra-articular patellar fracture. 2. Large lipohemarthrosis of the knee. ACT 112: Negative or not required by law. The above report was generated using voice recognition software. It may contain grammatical, syntax or spelling errors. Electronically signed by: Timbo Sanchez M.D. 03/31/2022 7:11 AM MDM Narrative Physical exam and history were performed. Nursing notes, EMR, and Medication List were personally reviewed. Patient appears to have fallen and suffered injury to her right knee. She has a large amount of pain and swelling above the patella on the right. She does not have other significant injury based on my exam. X-ray was obtained and reviewed by myself and my attending. She has a tremendous amount of edema on x-ray, but no obvious fracture or dislocation. On reevaluation the patient continues to have a large amount of pain. She was reevaluated at bedside by myself and my attending. The patient is not able to flex at the knee, nor does she seem to be able to engage with the quadriceps muscles on the right. Her injury today certainly could be related to a quadriceps injury. We did attempt to have the patient ambulate but this was not successful. She may need PT/OT evaluation, and likely orthopedic evaluation. In order to help patient care MRI of the femur was performed to better identify if this is a surgical process or not, as she is quite uncomfortable. In order to help facilitate care IV access was established and labs were obtain ed. Blood work is fairly unremarkable. COVID is negative. The patient was given IV morphine and IV Zofran for comfort. She did get IV Ativan prior to going to MRI. Imaging studies are as above and were reviewed by myself and radiology. She does appear to have a patellar fracture. The patient has several comorbidities and is unable to ambulate. She does not appear well for discharge home. Case was discussed with the on-call hospitalist team who agrees to evaluate the patient here in the ER. Please see their dictation for further patient course, plan, disposition. The chart was completed utilizing [employer] Speech Voice Recognition Software. Grammatical errors, random word insertions, pronoun errors, and incomplete sentences are an occasional consequence of this system due to software limitations, ambient noise, and hardware issues. Any formal questions or concerns about the content, text, or information contained within the body of this dictation should be directly addressed to the provider for clarification. . Impression & Plan Fall, Right patella fracture, Ambulatory dysfunction Discharge Plan Visit Data Chief Complaint: Fall ED Provider: Gerry Clement ED Midlevel Provider: Joe Cheung Discharge Problem: Fall, Right patella fracture, Ambulatory dysfunction Patient Disposition: Admitted As Inpatient Discharge Instructions Interventions: ED Discharge Assessment Last Done: 03/31/22 08:59
--- NOTE | 2022-03-31 04:09 | Emergency Department Note ---
ED Visit Note Patient was seen at bedside with the [place], I reviewed the x-ray that shows suprapatella effusion no obvious fractures no high riding patella. On my examination the patient clearly has significant suprapatella edema has a decreased ability to terminally extend or flex at the right knee. Patient is neurologically intact neurovascularly intact in the right lower extremity. Patient is alert. Patient can move all other extremities without any difficulty. The plan is to admit this patient to the possibility of a quadriceps tendon rupture and the fact that this patient has neuropathy and a significant amount of other comorbidities and is unable to walk at this time. The case was discussed with the hospitalist for admission .
[2022-03-31 04:15] LABS: Basophils # (auto) 0.01 K/uL (0-0.2); Basophils % (auto) 0.2 %; Eosinophils # (auto) 0.07 K/uL (0-0.5); Eosinophils % (auto) 1.5 %; Hematocrit (blood only) 31.3 % (37-47); Hemoglobin 11.1 g/dL (12.0-16.0); Immature Granulocytes # (auto) 0.06 K/uL (0.00-0.02); Immature Granulocytes % (auto) 1.3 %; Lymphocytes % (auto) 23.1 %; Mean Corpuscular Hemoglobin 31.4 pg (25-34); Mean Corpuscular Hgb Conc 35.5 g/dL (32-36); Mean Corpuscular Volume 88.7 fL (80-100); Mean Platelet Volume 10.6 fL (7.4-10.4); Monocytes # (auto) 0.24 K/uL (0.11-0.59); Neutrophils # (auto) 3.29 K/uL (1.4-6.5); Neutrophils % (auto) 68.9 %; Platelet Count 113 K/uL (130-400); RDW Coefficient of Variation 13.3 % (11.5-14.5); RDW Standard Deviation 43.1 fL (36.4-46.3); Red Blood Count 3.53 M/uL (4.2-5.4); White Blood Count 4.77 K/uL (4.8-10.8)
[2022-03-31 04:35] LABS: Albumin Globulin Ratio 1.5 (0.9-2); BUN Creatinine Ratio 27.3 (10-20); Bilirubin,Total 0.8 mg/dl (0.2-1.0); Calcium 8.9 mg/dl (8.5-10.1); Creatinine Clr Calc Pharmacy 40.5 ml/min; Est GFR (African American) 52.6 ml/min; Est GFR (Non-African American) 45.4 ml/min; Globulin 2.7 gm/dl (2.5-4.0); Potassium 4.9 mmol/L (3.5-5.1); Total Protein 6.7 gm/dl (6.0-8.3)
[2022-03-31 04:54] LABS: RBC Morphology Unremarkable
--- NOTE | 2022-03-31 05:56 | History & Physical Report ---
Date of Service March 31, 2022 Assessment & Plan (1) Fall: Plan: 62yo female s/p fall with trauma to right knee, tenderness, limited mobility, swelling. Findings concerning for possible tendon rupture. Patient with gait disturbance at baseline, frequent falls. MRI right knee obtained - read is pending -Pain control with Morphine PRN -Elevate leg -Fall precautions -Ortho, PT and OT evaluations pending read of MRI (2) Liver transplant recipient: Plan: Patient s/p liver transplant on Tacrolimus suppression. No issues. -Continue Tacrolimus (3) MGUS (monoclonal gammopathy of unknown significance): Plan: With pancytopenia -Continue to monitor (4) GERD (gastroesophageal reflux disease): Plan: Chronic. Well controlled with medications -Continue protonix (5) Diabetes 1.5, managed as type 1: Plan: Blood sugar presently 200. [id number]=1.5 on 11/03/21 -Lantus 7u BID -ISS History of Present Illness Chief Complaint: fall Primary Care Provider: She Davis DO Rhona Hendricks is a 62yo female with history of liver transplant on Tacrolimus immunosuppression presenting after a fall. She had just returned home from a picnic - tripped in her home and fell to the ground. She struck her right knee and right forehead against the hardwood. No LOC, no CP, palpitations, dizziness. She was able to get up with assistance but has had pain with weight bearing. Has gait disturbance at baseline - uses braces and a walker to ambulate, f requent falls at home. No LOC, no neck trauma, no neck pain. Patient recollects the entire event. No EtOH. Imaging suggestive of a suprapatellar effusion Allergies Allergy/AdvReac Type Severity Reaction Status Date / Time Iodinated Contrast Media Allergy Intermediate Sneezing Verified 03/26/22 13:01 and breaks out into a rash Penicillins Allergy Intermediate Hives Verified 03/26/22 13:01 metformin Allergy Unknown Unknown Verified 03/26/22 13:01 Home Medications Medication Instructions Recorded Confirmed Type lancets 33 gauge (Intelligent EnergyTouch Dellaz #100 ea 08/23/20 03/26/22 Rx Plus Lancet) pantoprazole 40 mg tablet,delayed 40 mg PO DAILY 09/04/20 03/31/22 History release glucagon (human recombinant) 1 mg 1 mg .ROUTE Q20M PRN #1 ea 04/04/21 03/26/22 Rx solution for injection pen needle, diabetic 32 gauge x #360 ea 04/04/21 03/26/22 Rx 5/32" (BD Ultra-Fine Leilani Pen Needle) insulin glargine 100 unit/mL (3 24 unit SUBCUT QPM box 06/09/21 03/31/22 History mL) subcutaneous pen (Lantus Solostar U-100 Insulin) blood sugar diagnostic (OneTouch #100 ea 06/19/21 03/26/22 Rx Verio test strips) tacrolimus 1 mg capsule, 1 mg PO .COMPLEX #270 cap 10/29/21 03/31/22 Rx immediate-release Humalog KwikPen Insulin 100 See Rx Instructions SUBCUT TID #15 11/11/21 03/26/22 Rx unit/mL subcutaneous (insulin ml NS lispro) duloxetine 20 mg capsule,delayed 20 mg PO HS #90 cap 02/25/22 03/31/22 Rx release solifenacin 5 mg tablet (Vesicare) 5 mg PO DAILY #90 tab 03/04/22 03/31/22 Rx Past Med/Surg History Medical History Anemia of chronic disease Bilateral foot-drop COPD (chronic obstructive pulmonary disease) Degenerative disc disease, lumbar Diabetic neuropathy Esophageal varices GERD (gastroesophageal reflux disease) 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) Lumbar pain with radiation down both legs MGUS (monoclonal gammopathy of unknown significance) Osteoarthritis Osteopenia Peripheral neuropathy Primary biliary cirrhosis SARS-CoV-2 positive Urinary incontinence, urge Vitamin D deficiency Surgical History History of section X 2 History of colonoscopy History of liver transplant History of lumbar laminectomy for spinal cord decompression (04/22/21) L3-L5 laminectomy History of tonsillectomy History of tooth extraction History of total abdominal hysterectomy and bilateral salpingo-oophorectomy Liver transplant recipient [facility] 10/13/18 Nasal polyp X 3 REMOVED Family History Unknown Adopted Social History Smoking Status: Never smoker Second Hand Exposure: No; Hx Alcohol Use: No Hx Substance Use: No Preferred Language: Liberian Communication Ability: Effective Visual Impairment: No Limitations Hearing Ability: Hard of Hearing Mortgage Underwriter Required: No Beliefs That Will Affect Care: None marital status: Current Living Situation: Spouse and Family Current Living Situation Comment: CHILDREN current occupational status: employed How many Children do You have: 3 Feels Safe at Home: Yes Childhood Exposure to Second-Hand Smoke: No caffeine: Yes during the past year weight has: remained stable Dental Care, Regularly: No Physical Activity Frequency: Daily Seatbelt Use: always Sunscreen Use: No Assistive Devices: Brace/Splint/Immobilizer, Glasses and Walker Review of Systems Review of Systems: All systems reviewed & are unremarkable except as noted in HPI & below Physical Exam Physical Exam: General: patient resting comfortably, NAD, non-toxic in appearance, AA&O x 4 Skin: warm, dry, intact, no rashes or lesions HEENT: Bruising over right eye, PERRL, EOMI, anicteric sclera, conjunctiva without injection, external ear normal to inspection and nontender, nares patent, moist mucus membranes, dentition intact, no oropharyngeal lesions, neck supple, trachea midline, no LAD, no thyromegaly, no JVD Heart: +S1/S2, regular, no m/r/g Lungs: equal air entry bilaterally, no rales/rhonchi/wheezes Abd: +BS, soft, NT/ND, no masses/organomegaly/ascites Ext: warm, 2+ pulses in UE/LE bilaterally, edema, warmth and tenderness of right knee with limited mobility flexion /extension due to pain. Neuro: nonfocal, patient AA&O x 4, speech intact, no facial droop, moving all extremities on command Results & Data Results & Data ([facility]) Vital Signs (Past 12 Hours) Vital Signs Temp Pulse Pulse Resp BP BP Pulse Ox 03/31/22 04:00 87 16 163/103 H 97 03/31/22 02:43 36.9 C 87 18 185/93 H 98 Laboratory Results Laboratory Results WBC 4.77 K/uL (4.8-10.8) L 03/31/22 03:54 RBC 3.53 M/uL (4.2-5.4) L 03/31/22 03:54 Hgb 11.1 g/dL (12.0-16.0) L 03/31/22 03:54 Hct 31.3 % (37-47) L 03/31/22 03:54 MCV 88.7 fL (80-100) 03/31/22 03:54 MCH 31.4 pg (25-34) 03/31/22 03:54 MCHC 35.5 g/dL (32-36) 03/31/22 03:54 RDW Std Deviation 43.1 fL (36.4-46.3) 03/31/22 03:54 RDW Coeff of Paty 13.3 % (11.5-14.5) 03/31/22 03:54 Plt Count 113 K/uL (130-400) L 03/31/22 03:54 MPV 10.6 fL (7.4-10.4) H 03/31/22 03:54 Immature Gran % (Auto) 1.3 % 03/31/22 03:54 Neut % (Auto) 68.9 % 03/31/22 03:54 Lymph % (Auto) 23.1 % 03/31/22 03:54 [place] % (Auto) 5.0 % 03/31/22 03:54 Eos % (Auto) 1.5 % 03/31/22 03:54 Baso % (Auto) 0.2 % 03/31/22 03:54 Neut # (Auto) 3.29 K/uL (1.4-6.5) 03/31/22 03:54 Lymph # (Auto) 1.10 K/uL (1.2-3.4) L 03/31/22 03:54 [place] # (Auto) 0.24 K/uL (0.11-0.59) 03/31/22 03:54 Eos # (Auto) 0.07 K/uL (0-0.5) 03/31/22 03:54 Baso # (Auto) 0.01 K/uL (0-0.2) 03/31/22 03:54 Immature Gran # (Auto) 0.06 K/uL (0.00-0.02) H 03/31/22 03:54 RBC Morphology Unremarkable 03/31/22 03:54 Sodium 137 mmol/L (136-145) 03/31/22 03:54 Potassium 4.9 mmol/L (3.5-5.1) 03/31/22 03:54 Chloride 106 mmol/L (98-107) 03/31/22 03:54 Carbon Dioxide 23 mmol/L (21-32) 03/31/22 03:54 Anion Gap 8 (3-11) 03/31/22 03:54 BUN 35 mg/dl (6-23) H 03/31/22 03:54 Creatinine 1.28 mg/dl (0.6-1.2) H 03/31/22 03:54 Est Cr Clr Drug Dosing 40.5 ml/min 03/31/22 03:54 Est GFR ( Amer) 52.6 ml/min 03/31/22 03:54 Est GFR (Non-Af Amer) 45.4 ml/min 03/31/22 03:54 BUN/Creatinine Ratio 27.3 (10-20) H 03/31/22 03:54 Glucose 200 mg/dl (70-99(Fasting)) H 03/31/22 03:54 Calcium 8.9 mg/dl (8.5-10.1) 03/31/22 03:54 Total Bilirubin 0.8 mg/dl (0.2-1.0) 03/31/22 03:54 AST 21 U/L (13-39) 03/31/22 03:54 ALT 11 U/L (7-52) 03/31/22 03:54 Alkaline Phosphatase 69 U/L (34-104) 03/31/22 03:54 Total Protein 6.7 gm/dl (6.0-8.3) 03/31/22 03:54 Albumin 4.0 gm/dl (3.4-5.0) 03/31/22 03:54 Globulin 2.7 gm/dl (2.5-4.0) 03/31/22 03:54 Albumin/Globulin Ratio 1.5 (0.9-2) 03/31/22 03:54 SARS-CoV-2, RNA, NAAT NEGATIVE (NEGATIVE) 03/31/22 03:54 Code Status & VTE Plan VTE Prophylaxis Plan VTE Prophylaxis will be ordered: Yes PG Care Time/CCT Total # of Minutes Spent Total Time Spent with Patient: Total time spent is greater than 50% in coordination of care (as documented) at patient's floor/unit and/or counseling patient: Coding Level of Care Code 09182 Initial Inpt Care Lvl 2 Diagnoses MGUS (monoclonal gammopathy of unknown significance) D47.2 Liver transplant recipient Z94.4 GERD (gastroesophageal reflux disease) K21.9 Esophagitis presence: esophagitis presence not specified Diabetes 1.5, managed as type 1 E13.9 Fall W19.XXXA (1) GERD (gastroesophageal reflux disease) Esophagitis presence: esophagitis presence not specified Qualified Code(s): K21.9 - Gastro-esophageal reflux disease without esophagitis
--- NOTE | 2022-03-31 06:45 | XRay Report ---
XR knee RT 3V HISTORY: 62 years-old Female fall. pain. Acute right knee pain status post fall COMPARISON: MRI of the right femur of same day TECHNIQUE: 3 views of the right knee FINDINGS: There is a large lipohemarthrosis of the knee. Mild lateral tilt of the patella within the trochlear groove. There is an acute comminuted intra-articular nondisplaced patellar fracture. Mild tricompartm ental osteoarthritis. No additional acute fracture or dislocation. Mild prepatellar soft tissue promi nence. IMPRESSION: 1. Acute comminuted nondisplaced intra-articular patellar fracture. 2. Large lipohemarthrosis. ACT 112: Negative or not required by law. The above report was generated using voice recognition software. It may contain grammatical, syntax o r spelling errors. Electronically signed by: Timbo Sanchez M.D. 03/31/2022 6:44 AM
--- NOTE | 2022-03-31 07:12 | Magnetic Resonance Report ---
MR femur RT wo con HISTORY: 62 years-old Female eval for quadriceps tendon rupture vs other acute right knee pain statu s post fall COMPARISON: Right knee radiographs of same day TECHNIQUE: Multiplanar multisequence MRI of the right femur was obtained without the use of IV contra st. FINDINGS: There is a large lipohemarthrosis of the knee. This study is not tailored to assess the intrinsic str uctures of the right hip or knee. There is suspected mild osteoarthritis of the right hip and knee. T here is an acute comminuted intra-articular nondisplaced fracture involving the patella with fracture lines noted extending proximal to distal. Extensive associated marrow edema. Mild prepatellar and pr oximal pretibial subcutaneous edema. Trace Shaw's cyst. Mild lateral tilt of the patella within the trochlear groove. No intramuscular hematoma identified. The imaged ligaments and tendons appear unrem arkable. IMPRESSION: 1. Acute comminuted nondisplaced intra-articular patellar fracture. 2. Large lipohemarthrosis of the knee. ACT 112: Negative or not required by law. The above report was generated using voice recognition software. It may contain grammatical, syntax o r spelling errors. Electronically signed by: Timbo Sanchez M.D. 03/31/2022 7:11 AM
[2022-03-31] MEDS ORDERED: ONDANSETRON INJ 2 MG/ML 2 ML VIAL IV PRN (09:30)
[2022-03-31] MEDS ORDERED: MoRPHine SULFATE 2 MG/ML CARP IV PRN (09:30)
[2022-03-31] MEDS ORDERED: GLUCOSE 40% GEL 15 GM TUBE PO PRN (09:30)
[2022-03-31] MEDS ORDERED: GLUCOSE 10 TABS/TUBE PO PRN (09:30)
[2022-03-31] MEDS ORDERED: DOCUSATE SODIUM 100 MG CAP PO PRN (09:30)
[2022-03-31] MEDS ORDERED: DEXTROSE 50% 50 ML SYRINGE IV PRN (09:30)
[2022-03-31] MEDS ORDERED: MAGNESIUM HYDROXIDE SUSP 30 ML UDC PO PRN (09:30)
[2022-03-31] MEDS ORDERED: CARBOHYDRATES FOR HYPOGLYCEMIA PO PRN (09:30)
[2022-03-31] MEDS ORDERED: ACETAMINOPHEN 325 MG TAB PO PRN (09:30)
[2022-03-31] MEDS ORDERED: GLUCAGON FOR INJ 1 MG VIAL SQ PRN (09:30)
--- NOTE | 2022-03-31 10:27 | History & Physical Bridge Note ---
Date of Service March 31, 2022 History & Physical Bridge Note I have examined the patient, reviewed the History & Physical and in the interval since the performance of the History & Physical I have noted the following changes of clinical significance: no changes noted Patient admitted early this AM after sustaining a fall in her home. She has chronic nerve damage of unknown etiology with chronic foot drop. Pt landed on right knee. MRI performed demonstrates an acute comminuted nondisplaced intraarticular fx of patella with large lipohemarthrosis of the knee. Pain is currently controlled, regimen ordered. She is NPO and [facility] orthopedics has been consulted, appreciate input/assistance. BR for now. Offered long catheter but pt declines for now. Explained if she will need operative repair of her fx, will place long perioperatively, she was agreeable. Follow up labs ordered for tomorrow. No chemoprophylaxis for DVT ppx until it is known if she will need to go to the OR. Continue all other current interventions. Will review plan w/ attending.
[2022-03-31] MEDS: PANTOprazole 40 MG TAB PO SCH (11:48)
[2022-03-31] MEDS: TACROLIMUS 1 MG CAP PO SCH (11:49)
[2022-03-31] MEDS: INSULIN ASPART PER UNIT SC SCH ×4 (11:49→21:43)
[2022-03-31] MEDS: INSULIN GLARGINE SOLOSTAR 100 UNITS/ML 3 ML PEN SC SCH ×2 (11:51→21:42)
--- NOTE | 2022-03-31 13:40 | Orthopedic Consultation ---
Date of Service March 31, 2022 Assessment & Plan (1) Right patella fracture: She was seen and examined by Dr Gagnon today as well. She was educated on this fracture and treatment. We recommend conservative/nonoperative management. She should wear the knee immobilizer for the next month. She can weight bear as tolerated in the knee immobilizer. She was instructed not to bend her knee. She should follow up with Dr. Gagnon in approx 2 weeks. She can be discharged from an orthopedic standpoint but will need some PT here to instruct her on ambulation with the brace/stairs. She wears a foot/ankle brace. She should probably put the foot/ankle brace on first and then the knee immobilizer. History of Present Illness Reason for Consultation: . Requesting Physician: . Attending Physician: Abhi Frankel MD .Rhona is a 62 year old patient that we are seeing for right knee pain/injur y. She fell last night and injured her knee and bumped her head. Her and son were able to help her up and she was brought to [facility]. Imaging was obtained which shows a nondisplaced patella fracture. She has some underlying neurological issue that she feels contributed to her fall. She is not able to extend her toes on the right foot or dorsiflex, and this was all preexisting. Allergies Allergy/AdvReac Type Severity Reaction Status Date / Time Iodinated Contrast Media Allergy Intermediate Sneezing Verified 03/26/22 13:01 and breaks out into a rash Penicillins Allergy Intermediate Hives Verified 03/26/22 13:01 metformin Allergy Unknown Unknown Verified 03/26/22 13:01 Home Medications Medication Instructions Recorded Confirmed Type lancets 33 gauge (Pathways PlatformTouch Dellaz #100 ea 08/23/20 03/26/22 Rx Plus Lancet) pantoprazole 40 mg tablet,delayed 40 mg PO DAILY 09/04/20 03/31/22 History release pen needle, diabetic 32 gauge x #360 ea 04/04/21 03/26/22 Rx 5/32" (BD Ultra-Fine Leilani Pen Needle) insulin glargine 100 unit/mL (3 24 unit SUBCUT QPM box 06/09/21 03/31/22 History mL) subcutaneous pen (Lantus Solostar U-100 Insulin) blood sugar diagnostic (Pathways PlatformTouch #100 ea 06/19/21 03/26/22 Rx Verio test strips) tacrolimus 1 mg capsule, 1 mg PO .COMPLEX #270 cap 10/29/21 03/31/22 Rx immediate-release duloxetine 20 mg capsule,delayed 20 mg PO HS #90 cap 02/25/22 03/31/22 Rx release solifenacin 5 mg tablet (Vesicare) 5 mg PO DAILY #90 tab 03/04/22 03/31/22 Rx Past Med/Surg History Medical History Anemia of chronic disease Bilateral foot-drop COPD (chronic obstructive pulmonary disease) Degenerative disc disease, lumbar Diabetic neuropathy Esophageal varices GERD (gastroesophageal reflux disease) 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) Lumbar pain with radiation down both legs MGUS (monoclonal gammopathy of unknown significance) Osteoarthritis Osteopenia Peripheral neuropathy Primary biliary cirrhosis SARS-CoV-2 positive Urinary incontinence, urge Vitamin D deficiency Surgical History History of section X 2 History of colonoscopy History of liver transplant History of lumbar laminectomy for spinal cord decompression (04/22/21) L3-L5 laminectomy History of tonsillectomy History of tooth extraction History of total abdominal hysterectomy and bilateral salpingo-oophorectomy Liver transplant recipient [facility] 10/13/18 Nasal polyp X 3 REMOVED Family History Unknown Adopted Social History Smoking Status: Never smoker Second Hand Exposure: No; Hx Alcohol Use: No Hx Substance Use: No Preferred Language: Romansh Communication Ability: Effective Visual Impairment: No Limitations Hearing Ability: Hard of Hearing 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 Physical Exam .Alert and oriented. No distress. Right leg: She has a large knee effusion. Tender to palpation at the patella. She can do a straight leg raise with assistance, but has pain and difficulty. She reports paresthesias in the right foot and is unable to dorsiflex. Once again, that is preexisting and unchanged according to her. Skin is intact. Results & Data Results & Data Laboratory Results . Diagnostic Findings . Xray of the knee and MRI were reviewed. On the MRI she has a nondisplaced patella fracture PG Care Time/CCT Total # of Minutes Spent Total Time Spent with Patient: Total time spent is greater than 50% in coordination of care (as documented) at patient's floor/unit and/or counseling patient: Coding Level of Care Code 35560 Inpt Consult Level 3 Diagnoses Right patella fracture S82.001A
[2022-03-31] MEDS ORDERED: DULoxetine HCL 20 MG CAP PO SCH (21:00)
[2022-03-31] MEDS ORDERED: TACROLIMUS 1 MG CAP PO SCH (21:00)
[2022-04-01 06:25] LABS: Basophils # (auto) 0.01 K/uL (0-0.2); Basophils % (auto) 0.3 %; Eosinophils # (auto) 0.15 K/uL (0-0.5); Eosinophils % (auto) 4.3 %; Hematocrit (blood only) 28.5 % (37-47); Immature Granulocytes # (auto) 0.03 K/uL (0.00-0.02); Immature Granulocytes % (auto) 0.9 %; Lymphocytes # (auto) 1.55 K/uL (1.2-3.4); Lymphocytes % (auto) 44.5 %; Mean Corpuscular Hemoglobin 30.8 pg (25-34); Mean Corpuscular Hgb Conc 35.1 g/dL (32-36); Mean Corpuscular Volume 87.7 fL (80-100); Mean Platelet Volume 10.3 fL (7.4-10.4); Monocytes # (auto) 0.28 K/uL (0.11-0.59); Neutrophils # (auto) 1.46 K/uL (1.4-6.5); Platelet Count 105 K/uL (130-400); RDW Coefficient of Variation 13.3 % (11.5-14.5); Red Blood Count 3.25 M/uL (4.2-5.4); White Blood Count 3.48 K/uL (4.8-10.8)
[2022-04-01 06:46] LABS: Albumin Level 3.4 gm/dl (3.4-5.0); BUN Creatinine Ratio 22.7 (10-20); Bilirubin Direct 0.2 mg/dl (0-0.2); Bilirubin,Total 0.7 mg/dl (0.2-1.0); Calcium 8.2 mg/dl (8.5-10.1); Creatinine Clr Calc Pharmacy 38.2 ml/min; Est GFR (African American) 46.8 ml/min; Est GFR (Non-African American) 40.4 ml/min; Total Protein 5.6 gm/dl (6.0-8.3)
[2022-04-01 06:55] LABS: Estimated Average Glucose 123 mg/dl; Hemoglobin A1C 5.9 % (4.5-5.6)
[2022-04-01] MEDS: INSULIN ASPART PER UNIT SC SCH (08:59)
[2022-04-01] MEDS: INSULIN GLARGINE SOLOSTAR 100 UNITS/ML 3 ML PEN SC SCH (08:59)
[2022-04-01] MEDS: PANTOprazole 40 MG TAB PO SCH (09:00)
[2022-04-01] MEDS: TACROLIMUS 1 MG CAP PO SCH (09:03)
--- NOTE | 2022-04-01 11:41 | Communication Note ---
Date of Service: April 01, 2022 By CMS guidelines, a determination that the admission or continued stay is not medically necessary has been made by a member of the UR committee and a physici an for this hospital stay, therefore a Code 44 will be completed and the Inpatient admission will be changed to outpatient.
--- NOTE | 2022-04-01 11:50 | Discharge Summary ---
Date of Service April 01, 2022 Admission HPI Per Admitting Provider Rhona Hendricks is a 62yo female with history of liver transplant on Tacrolimus immunosuppression presenting after a fall. She had just returned home from a picnic - tripped in her home and fell to the ground. She struck her right knee and right forehead against the hardwood. No LOC, no CP, palpitations, dizziness. She was able to get up with assistance but has had pain with weight bearing. Has gait disturbance at baseline - uses braces and a walker to ambulate, frequent falls at home. No LOC, no neck trauma, no neck pain. Patient recollects the entire event. No EtOH. Imaging suggestive of a suprapatellar effusion Principal Diagnosis s/p fall with R knee pain due to patellar fracture Discharge Exam GENERAL: 62 yo WD/WN WF. NAD. LUNGS: Clear to auscultation bilaterally. No W/R/R. CARDIOVASCULAR: Regular rate and rhythm. ABDOMEN: Soft, non-tender and non-distended. BS normoactive x 4 quad. EXTREMITIES: No edema. Non-tender. Peripheral pulses +2/4. Knee immobilizer in place to RLE. NV intact. No edema. NEUROLOGIC: A&O x3. No focal neurological deficits. PSYCHIATRIC: Cooperative. Appropriate mood and affect. SKIN: Warm, dry, intact. No rashes or lesions. Discharge Data Allergies Allergy/AdvReac Type Severity Reaction Status Date / Time Iodinated Contrast Media Allergy Intermediate Sneezing Verified 03/26/22 13:01 and breaks out into a rash Penicillins Allergy Intermediate Hives Verified 03/26/22 13:01 metformin Allergy Unknown Unknown Verified 03/26/22 13:01 Consultations 03/31/22 04:51 ED Decision to Admit Stat 03/31/22 08:59 Consult Orthopedic Surgery Routine Ordered Studies Knee X-Ray 03/31/22 02:54 XR knee RT 3V HISTORY: 62 years-old Female fall. pain. Acute right knee pain status post fall COMPARISON: MRI of the right femur of same day TECHNIQUE: 3 views of the right knee FINDINGS: There is a large lipohemarthrosis of the knee. Mild lateral tilt of the patella within the trochlear groove. There is an acute comminuted intra-articular nondisplaced patellar fracture. Mild tricompartmental osteoarthritis. No additional acute fracture or dislocation. Mild prepatellar soft tissue prominence. IMPRESSION: 1. Acute comminuted nondisplaced intra-articular patellar fracture. 2. Large lipohemarthrosis. ACT 112: Negative or not required by law. The above report was generated using voice recognition software. It may contain grammatical, syntax or spelling errors. Electronically signed by: Timbo Sanchez M.D. 03/31/2022 6:44 AM Femur MRI 03/31/22 03:43 MR femur RT wo con HISTORY: 62 years-old Female eval for quadriceps tendon rupture vs other acute right knee pain status post fall COMPARISON: Right knee radiographs of same day TECHNIQUE: Multiplanar multisequence MRI of the right femur was obtained without the use of IV contrast. FINDINGS: There is a large lipohemarthrosis of the knee. This study is not tailored to assess the intrinsic structures of the right hip or knee. There is suspected mild osteoarthritis of the right hip and knee. There is an acute comminuted intra-articular nondisplaced fracture involving the patella with fracture lines noted extending proximal to distal. Extensive associated marrow edema. Mild prepatellar and proximal pretibial subcutaneous edema. Trace Shaw's cyst. Mild lateral tilt of the patella within the trochlear groove. No intramuscular hematoma identified. The imaged ligaments and tendons appear unremarkable. IMPRESSION: 1. Acute comminuted nondisplaced intra-articular patellar fracture. 2. Large lipohemarthrosis of the knee. ACT 112: Negative or not required by law. The above report was generated using voice recognition software. It may contain grammatical, syntax or spelling errors. Electronically signed by: Timbo Sanchez M.D. 03/31/2022 7:11 AM Hospital Course (1) Fall: 62yo female s/p fall with trauma to right knee, tenderness, limited mobility, swelling. Findings concerning for possible tendon rupture. Patient with gait disturbance at baseline, frequent falls. -Pain control with Morphine PRN -Elevate leg -Fall precautions -MRI demonstrating fracture of patella, nondisplaced -Ortho consulted, recommending knee immobilizer x4 weeks and o/p follow up in 2 weeks -Pain is adequately controlled, ambulated with pt/ot-does not need home health -Rx for Tramadol provided if she needs for more moderate/severe pain. Told to take APAP for mild pain. (2) Liver transplant recipient: Patient s/p liver transplant on Tacrolimus suppression. No issues. -Continue Tacrolimus (3) MGUS (monoclonal gammopathy of unknown significance): With pancytopenia (4) GERD (gastroesophageal reflux disease): Chronic. Well controlled with medications -Continue protonix (5) Diabetes 1.5, managed as type 1: Blood sugar presently 200. [id number]=0.5 on 11/03/21 -resume antidiabetic regimen as prescribed At this time she is medically and hemodynamically stable for discharge. Plan for outpatient f/u with ortho in 2 weeks (Dr. Gagnon). Knee immobilizer in place, will use overtop of braces that she chronically uses for her foot drop. Advised pcp follow up as sscheduled or sooner if needed. Plan has been d/w Dr. Thompson who has also seen and evaluated this patient. Total Time Total Time Spent Total Time Spent (In Minutes): <30 minutes Discharge Plan Discharge Items Patient Disposition: Home - Self-Care Reason For Visit: FALL,RT KNEE PAIN Discharge Diagnosis: Right knee pain due to fractured knee cap Activity: As commented below Activity Comment: with a walker, no bending of R leg Non-emergency contact: Primary Care Provider and Specialist Call non-emergency contact if: you have any medication questions Follow-up/Referrals: She Davis DO [Primary Care Provider] - Joe Gagnon MD [Physician] - (2 weeks) Diet: Carb Count or DM1 Addtl Attending Provider Instructions: You were hospitalized due to a fall where you were found to have a fracture of your right knee cap. 1. Please maintain knee immobilizer at all times (can remove to shower) 2. A prescription has been sent to your pharmacy for Tramadol which is to be used as needed for moderate to severe knee pain. For mild pain, you can utilize Tylenol. 3. Use your rolled walker to assist you in walking, remember to shift your weight when walking. 4. You are to follow up with orthopedics, Dr. Gagnon, in the office in 2 weeks If you have any questions or concerns about your discharge, please call the nonemergency number listed on your paperwork. In the event of a medical emergency, call 911. Pending Studies at Discharge: No Stand-Alone Forms: [employer], Smoking Cessation Medications and DC Order Prescriptions: New tramadol 50 mg tablet 50 mg PO Q4H PRN (Reason: pain (scale 6-10)) Qty: 20 RF: 0 Continued (DME) lancets [OneTouch Delica Plus Lancet] 33 gauge misc See Rx Instructions .ROUTE .MEDSUPPLY Qty: 100 RF: 3 (DME) OneTouch Verio test strips Strip See Rx Instructions .ROUTE .MEDSUPPLY Qty: 100 RF: 3 tacrolimus 1 mg capsule 1 mg PO .COMPLEX Qty: 270 RF: 1 duloxetine 20 mg capsule,delayed release(DR/EC) 20 mg PO HS Qty: 90 RF: 1 solifenacin [Vesicare] 5 mg tablet 5 mg PO DAILY Qty: 90 RF: 3 (DME) pen needle, diabetic [BD Ultra-Fine Leilani Pen Needle] 32 gauge x 5/32" needle See Rx Instructions .ROUTE .MEDSUPPLY Qty: 360 RF: 3 pantoprazole 40 mg tablet,delayed release (DR/EC) 40 mg PO DAILY RF: 0 Lantus Solostar U-100 Insulin 100 unit/mL (3 mL) insulin pen 24 unit subcut QPM RF: 0 Discharge Orders: Discharge Order (Routine); Ordered 04/01/22 Ordered By: Elham Guillory Admission Data Admit Date/Time: 03/31/22 05:38 Attending Provider: Simone Thompson Admit Provider: Mery Gagnon Primary Care Provider: She Davis. Other Providers: Mery Gagnon ; Raoul Gomez ; Suzie Reyes ; Chan Hernandez ; Kerrie Engle ; Rian Sanchez ; Sumi Badillo ; Tabitha Hopkins N ; Joe Gagnon ; Brenton Tyler ; Jim Andre Brian A Coding Level of Care Code 41538 OBS Care - Discharge Diagnoses Fall W19.XXXA Liver transplant recipient Z94.4 MGUS (monoclonal gammopathy of unknown significance) D47.2 GERD (gastroesophageal reflux disease) K21.9 Esophagitis presence: esophagitis presence not specified Diabetes 1.5, managed as type 1 E13.9
== END 2022-04-01 12:12 | disposition home or self-care (01) | DRG 563 ==
LOC: ED 02:33 → SUATTDRO 05:38 → INTOOBSV 05:38 → EDINP 05:38 → 3N 08:59

== ENCOUNTER 2022-10-11 20:08 | Inpatient (IN) ==
[2022-10-11 21:04] LABS: INR 1.2 (0.9-1.1); Partial Thromboplastin Ratio 1.1; Partial Thromboplastin Time 30.2 Seconds (21.0-31.0); Prothrombin Time 12.8 Seconds (9.0-12.0)
[2022-10-11 21:11] LABS: Troponin I High Sensitivity 19.8 pg/ml (0-14)
[2022-10-11 21:20] LABS: Albumin Globulin Ratio 1.3 (0.9-2); Albumin Level 2.8 gm/dl (3.4-5.0); BUN Creatinine Ratio 14.2 (10-20); Bilirubin,Total 1.2 mg/dl (0.2-1.0); Creatinine Clr Calc Pharmacy 20.2 ml/min; Est GFR (African American) 20.9 ml/min; Globulin 2.1 gm/dl (2.5-4.0); Magnesium 1.2 mg/dl (1.7-2.4); Potassium 4.8 mmol/L (3.5-5.1); Total Protein 4.9 gm/dl (6.0-8.3)
[2022-10-11 21:23] LABS: Hematocrit (blood only) 27.2 % (34.1-44.9); Hemoglobin 9.4 g/dl (12.0-16.0); Mean Corpuscular Hgb Conc 34.6 g/dL (32.0-36.0); Mean Corpuscular Volume 89.8 fL (80.0-100.0); Mean Platelet Volume 10.9 fL (9.4-12.3); Platelet Count 69 K/uL (130-400); RDW Standard Deviation 48.9 fL (36.4-46.3); Red Blood Count 3.03 M/uL (3.93-5.22); White Blood Count 1.89 K/ul (4.8-10.8)
[2022-10-11 21:40] LABS: Influenza A virus by PCR Negative (Neg); Influenza B virus by PCR Negative (Neg); RSV by PCR Negative (Neg)
[2022-10-11] MEDS ORDERED: MAGNESIUM SULFATE / D5W 1 GM/100 ML BAG IV STA (21:40)
[2022-10-11] MEDS ORDERED: FAMOTIDINE 20MG IV PUSH 20 MG/5 ML SYR IV STA (21:40)
[2022-10-11 21:43] LABS: SARS CoV2 RNA(COVID-19) Ceph POSITIVE (Negative)
[2022-10-11] MEDS: SODIUM CHLORIDE 0.9% 1000ML 1,000 ML IV SCH (21:46)
[2022-10-11 22:39] LABS: Dohle Bodies 1+
[2022-10-11 22:47] LABS: Basophils # (auto) 0.02 K/uL (0-0.2); Basophils % (auto) 1.1 %; Eosinophils # (auto) 0.04 K/uL (0-0.50); Eosinophils % (auto) 2.1 %; Immature Granulocytes # (auto) 0.14 K/uL (0.00-0.02); Immature Granulocytes % (auto) 7.4 %; Lymphocytes # (auto) 0.56 K/uL (1.2-3.4); Lymphocytes % (auto) 29.6 %; Monocytes # (auto) 0.26 K/uL (0.24-0.82); Monocytes % (auto) 13.8 %; Neutrophils # (auto) 0.87 K/uL (1.4-6.5)
--- NOTE | 2022-10-11 23:20 | History & Physical Report ---
Date of Service October 11, 2022 Assessment & Plan (1) COVID-19: Plan: Rhona Hendricks is a 62-year-old female with past medical history of liver transplant, CKD stage III, DM 1.5, MGUS, depression, GERD who presented due to shortness of breath over the last couple of days. COVID-19 Likely causing patient's subjective shortness of breath, though reassuring that she is not requiring supplemental oxygen at this time Chest x-ray without significant acute disease Start Decadron 6 mg daily Holding on initiation of remdesivir due to patient's current kidney function attempt to improve kidney function to creatinine clearance above 30 and consider initiation COVID isolation MADELEINE on CKD 3 Creatinine 2.75 on admission, up from baseline of around 1.5-1.9 NSS at 125 cc/h Avoid nephrotoxins Renally dose medications Monitor creatinine daily Hypomagnesemia Repleted with 1 g mag sulfate in ED Repeat magnesium level in a.m. Hold PPI MGUS Chronic pancytopenia, has followed with hematology in the past Monitor Liver transplant history Continue home tacrolimus Overactive bladder Continue home Solifenacin Depression Continue home duloxetine DVT prophylaxis: Heparin SQ monitor platelet count, discontinue if platelets below 50 Diet: DM 1, follows special diet due to transplant Dispo: Med telemetry CODE STATUS: DNR/DNI (2) Renal insufficiency: (3) Pancytopenia: (4) Hypomagnesemia: (5) Diabetes 1.5, managed as type 1: (6) GERD (gastroesophageal reflux disease): History of Present Illness Primary Care Provider: She Davis DO Rhona Hendricks is a 62-year-old female with past medical history of liver transplant, CKD stage III, DM 1.5, MGUS, depression, GERD who presented due to shortness of breath over the last couple of days. She has also felt weak and has had a couple of mechanical falls at home without significant injury. She also notes a cough, but does admit that she has this chronically as of the past year. She did spend time with a family member who tested positive for COVID about a week ago. No fever, chills, nausea, vomiting, headache, dizziness, chest pain, palpitations, rash, diarrhea, joint aches. Work-up in the ED significant for pancytopenia with WBC of 1.89, hemoglobin 9.4, platelets 69. INR 1.2. Sodium 135, BUN 39, creatinine 2.75. Magnesium 1.2. Troponin 19.8. BNP 359. COVID positive. Chest x-ray without any significant acute abnormalities. Her magnesium was repleted with 1 g mag sulfate, was administered famotidine 20 mg IV x1. Allergies Allergy/AdvReac Type Severity Reaction Status Date / Time Iodinated Contrast Media Allergy Intermediate Sneezing Verified 10/11/22 22:22 and breaks out into a rash Penicillins Allergy Intermediate Hives Verified 10/11/22 22:22 metformin Allergy Unknown Unknown Verified 10/11/22 22:22 Home Medications Medication Instructions Recorded Confirmed Type lancets 33 gauge (efectivoxTouch Delica #100 ea 08/23/20 07/31/22 Rx Plus Lancet) pen needle, diabetic 32 gauge x #360 ea 04/04/21 07/31/22 Rx 5/32" (BD Ultra-Fine Leilani Pen Needle) insulin glargine 100 unit/mL (3 24 unit subcut QPM 06/09/21 10/11/22 History mL) subcutaneous pen (Lantus Solostar U-100 Insulin) blood sugar diagnostic (OneTouch #100 ea 06/19/21 07/31/22 Rx Verio test strips) tacrolimus 1 mg capsule, 1 mg PO .COMPLEX #270 caps 05/01/22 10/11/22 Rx immediate-release duloxetine 20 mg capsule,delayed 20 mg PO HS #90 caps 08/24/22 10/11/22 Rx release amlodipine 5 mg tablet (Norvasc) 5 mg PO QAM #30 tabs 10/16/22 Rx cefdinir 300 mg capsule 300 mg PO DAILY #5 caps 10/16/22 Rx famotidine 20 mg tablet 20 mg PO DAILY #30 tabs 10/16/22 Rx sodium bicarbonate 650 mg tablet 650 mg PO BID #60 tabs 10/16/22 Rx Past Med/Surg History Medical History (Updated 10/15/22 @ 22:34 by Carmelina Jacobo MD) Anemia of chronic disease Bilateral foot-drop COPD (chronic obstructive pulmonary disease) Degenerative disc disease, lumbar Diabetic neuropathy Esophageal varices GERD (gastroesophageal reflux disease) 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) Lumbar pain with radiation down both legs MGUS (monoclonal gammopathy of unknown significance) Osteoarthritis Osteopenia Peripheral neuropathy Primary biliary cirrhosis Proteinuria Right patella fracture SARS-CoV-2 positive Urinary incontinence, urge Vitamin D deficiency Surgical History (Updated 08/03/22 @ 06:40 by She Davis DO) History of section X 2 History of colonoscopy History of liver transplant (10/13/18) History of lumbar laminectomy for spinal cord decompression (04/22/21) L3-L5 laminectomy History of tonsillectomy History of tooth extraction History of total abdominal hysterectomy and bilateral salpingo-oophorectomy Liver transplant recipient [facility] 10/13/18 Nasal polyp X 3 REMOVED Family History Unknown Adopted Social History Smoking Status: Never smoker Second Hand Exposure: No; Hx Alcohol Use: No Hx Substance Use: No Preferred Language: Tanzanian Communication Ability: Effective Visual Impairment: No Limitations Hearing Ability: Hard of Hearing Poly Area Supervisor Required: No Beliefs That Will Affect Care: None marital status: Current Living Situation: Spouse Current Living Situation Comment: Lives with current occupational status: employed How many Children do You have: 3 Feels Safe at Home: Yes Childhood Exposure to Second-Hand Smoke: No caffeine: Yes during the past year weight has: remained stable Dental Care, Regularly: No Physical Activity Frequency: Daily Seatbelt Use: always Sunscreen Use: No Assistive Devices: None Review of Systems Review of Systems: Per HPI Physical Exam Physical Exam: GENERAL: A&Ox3. NAD. HEENT: PERRL, EOMI. Moist mucous membranes. NECK: No JVD. No lymphadenopathy. CHEST/LUNGS: CTAB A/P. No crackles, wheezes, rales, rhonchi. HEART: RRR. No m/g/r. No carotid bruits. ABDOMEN: NT/ND, soft. BS+ x4 EXTREMITIES: No cyanosis, no clubbing, no edema SKIN: Warm and dry. No rashes or lesions. PSYCHIATRIC: Euthymic affect, no SI, no pressured speech, no hallucinations NEUROLOGIC: No FND. Results & Data Results & Data ([facility]) Vital Signs (Past 12 Hours) Vital Signs Temp Pulse Pulse Resp BP BP Pulse Ox 10/11/22 21:05 86 98 10/11/22 21:05 86 20 199/111 H 98 10/11/22 20:10 36.4 C L 95 H 18 189/84 H 98 O2 Del Method 10/11/22 21:05 10/11/22 21:05 Room Air 10/11/22 20:10 Room Air Code Status & VTE Plan VTE Prophylaxis Plan VTE Prophylaxis will be ordered: Yes Supervising Physician Co-Signing Physician Notes Attending addendum: I have physically seen this patient, have supervised the medical residents activities, and agree with the H&P unless as otherwise noted. Assessment and Plan: COVID-19 infection- Dexamethasone 6 mg IV daily Holding remdesivir due to renal insufficiency Vitamin D and zinc sulfate COVID precautions MADELEINE on CKD stage III- Creatinine 2.75 on admission, with baseline 1.5-1.9 NSS @125 mils per hour Repeat laboratories in a.m. Likely secondary to decreased oral intake associated COVID-19 Hypomagnesemia- Magnesium 1.2 on admission Stop pantoprazole and placed on famotidine instead Give mag sulfate IV and recheck laboratories in a.m. remaining orders and notations as noted Resident Activity Tracking Resident Involvement: Resident Care Provided Care Provided: Adult Hospital Medicine (1) GERD (gastroesophageal reflux disease) Esophagitis presence: esophagitis presence not specified Qualified Code(s): K21.9 - Gastro-esophageal reflux disease without esophagitis
--- NOTE | 2022-10-11 23:47 | Emergency Department Note ---
Impression & Plan COVID-19, Renal insufficiency, Pancytopenia, Hypomagnesemia ED Provider Note INFORMANT: Patient ED PROVIDER(S): Boston Arana MD CHIEF COMPLAINT: Shortness of breath PLAN: Disposition: Admitted Condition: Good Outpatient prescription management: none Referral: None MEDICAL DECISION MAKING: Patient presented because of shortness of breath. Work-up was initiated. She did have a remote COVID contact. Chest x-ray did not reveal any evidence of pneumonia. Her laboratory tests revealed pancytopenia. She was hypomagnesemic. She had an increasing creatinine. Troponin was borderline but likely affected by the creatinine. Her low magnesium was repleted. The patient was gently hydrated. She also noted some reflux-like symptoms and was treated with IV Pepcid. On reassessment she was feeling better. Unfortunately patient tested positive for COVID. Given the weakness, low magnesium, frequent falls, breathing issues and COVID diagnosis further management in hospital was deemed appropriate. Consultation was made with Dr. Phillip Tobin of the [facility] service. Patient was evaluated in the ER for further management. Triage Nursing notes reviewed and agree them. Vital Signs: reviewed and remarkable for hypertension Differential diagnosis: Viral syndrome reactive airway disease, pneumonia, pneumothorax, COPD, CHF, infections, cardiac ischemia, pulmonary embolism, musculoskeletal, gastrointestinal, as well as other pathologies. Diagnostics interpreted by me: ECG: Twelve-lead ECG reveals normal sinus rhythm at 91 bpm. There is left axis deviation. Lateral Q wave. No ST elevation Cardiac Monitoring: Cardiac monitoring ordered by me: The patient was placed on continuous cardiac monitoring and observed. It revealed a normal sinus rhythm at 86 beats per minute without ectopy or evidence of dysrhythmia. Imaging studies: Chest x-ray. Findings: A chest x-ray was performed and revealed no pneumothorax, effusion, infiltrate, pulmonary edema, free air under the diaphragm, or wide mediastinum. Impression: No acute disease. HPI: The patient is a 62year old female with history of liver transplant and renal insufficiency who presents to the Emergency Room with complaints of shortness of breath. This started over the last 2 days and is worsening. Patient also notes generalized weakness and has been falling. She has some bruises on her arm but denies any other injury. The patient also notes the following associated symptoms, baseline chronic cough for the last year. No history of COPD or asthma. She notes that she was around family member a little over a week ago and they were positive for COVID. The patient has found no relieving factors. Current pain is rated as 0/10. Pt denies LOC, headache, fevers, chills, diaphoresis, visual changes, neck pain, chest pain, nausea, vomiting, abdominal pain, back pain, melena, hematochezia, urinary symptoms, numbness, lymphadenopathy, rash, or other complaints. ROS: See above HPI for pertinent positives & negatives. A total of 10 systems reviewed and were otherwise negative. PAST MEDICAL HISTORY:See Below , chronic renal insufficiency, hypertension PAST SURGICAL HISTORY:See Below, liver transplant FAMILY HISTORY:See Below SOCIAL HISTORY:See Below, non-smoker HOME MEDICATIONS:See Below ALLERGIES:See Below VITALS:See Below PHYSICAL EXAMINATION: GENERAL: Awake, alert, mildly dyspneic-appearing, in no distress HENT: Normocephalic, atraumatic. Oropharynx unremarkable. EYES: Normal conjunctiva. Sclera non-icteric. NECK: Inspection normal. Non-tender. Supple. No nuchal rigidity. FROM. No masses. RESPIRATORY: Scattered rhonchi. No wheezes. No rales. Normal respiratory effort. CARDIAC: Normal rate. Normal rhythm. No murmurs. No rubs. Extremities warm and well perfused. Pulses equal. No JVD. GI: Soft, non-distended. No tenderness to palpation. No rebound or guarding. No masses. RECTAL: Deferred. MUSCULOSKELETAL: Atraumatic. Chest examination reveals no tenderness. The back is symmetrical on inspection without obvious abnormality. There is no CVA tenderness to palpation. No joint edema. LOWER EXTREMITIES: Calves are equal size bilaterally and non-tender. 1+ lower extremity edema. No discoloration. NEURO: Normal sensorium. Generally weak but no focal sensory or motor deficits noted. SKIN: No rash or jaundice noted. Boston Arana MD Past Med/Surg History Medical History (Updated 10/11/22 @ 23:47 by Boston Arana MD) Anemia of chronic disease Bilateral foot-drop COPD (chronic obstructive pulmonary disease) Degenerative disc disease, lumbar Diabetic neuropathy Esophageal varices GERD (gastroesophageal reflux disease) 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) Lumbar pain with radiation down both legs MGUS (monoclonal gammopathy of unknown significance) Osteoarthritis Osteopenia Peripheral neuropathy Primary biliary cirrhosis Right patella fracture SARS-CoV-2 positive Urinary incontinence, urge Vitamin D deficiency Surgical History (Updated 08/03/22 @ 06:40 by She Davis DO) History of section X 2 History of colonoscopy History of liver transplant (10/13/18) History of lumbar laminectomy for spinal cord decompression (04/22/21) L3-L5 laminectomy History of tonsillectomy History of tooth extraction History of total abdominal hysterectomy and bilateral salpingo-oophorectomy Liver transplant recipient [facility] 10/13/18 Nasal polyp X 3 REMOVED Family History Unknown Adopted Social History Smoking Status: Never smoker Second Hand Exposure: No; Hx Alcohol Use: No Hx Substance Use: No Preferred Language: Korean Communication Ability: Effective Visual Impairment: No Limitations Hearing Ability: Hard of Hearing Information Assurance Required: No Beliefs That Will Affect Care: None marital status: Current Living Situation: Spouse Current Living Situation Comment: Lives with current occupational status: employed How many Children do You have: 3 Feels Safe at Home: Yes Childhood Exposure to Second-Hand Smoke: No caffeine: Yes during the past year weight has: remained stable Dental Care, Regularly: No Physical Activity Frequency: Daily Seatbelt Use: always Sunscreen Use: No Assistive Devices: None Allergies Allergies Allergy/AdvReac Type Severity Reaction Status Date / Time Iodinated Contrast Media Allergy Intermediate Sneezing Verified 10/11/22 22:22 and breaks out into a rash Penicillins Allergy Intermediate Hives Verified 10/11/22 22:22 metformin Allergy Unknown Unknown Verified 10/11/22 22:22 Home Meds Home Medications Medication Instructions Recorded Confirmed pantoprazole 40 mg tablet,delayed 40 mg PO DAILY 09/04/20 10/11/22 release insulin glargine 100 unit/mL (3 24 unit subcut QPM 06/09/21 10/11/22 mL) subcutaneous pen (Lantus Solostar U-100 Insulin) Previous Rx's Medication Instructions Recorded lancets 33 gauge (OneTouch Delica #100 ea 08/23/20 Plus Lancet) pen needle, diabetic 32 gauge x #360 ea 04/04/21" (BD Ultra-Fine Leilani Pen Needle) blood sugar diagnostic (OneTouch #100 ea 06/19/21 Verio test strips) solifenacin 5 mg tablet (Vesicare) 5 mg PO DAILY #90 tabs 03/04/22 tacrolimus 1 mg capsule, 1 mg PO .COMPLEX #270 caps 05/01/22 immediate-release famotidine 40 mg tablet 40 mg PO DAILY #90 tabs 07/31/22 duloxetine 20 mg capsule,delayed 20 mg PO HS #90 caps 08/24/22 release Results & Data (ED) Vital Signs Vital Signs - 24 hr 10/11/22 20:10 10/11/22 21:05 10/11/22 21:05 Temperature 36.4 C L Temperature Source Temporal Artery Scan Pulse Rate 95 H 86 Pulse Rate [Finger] 86 Respiratory Rate 18 20 Respiratory Effort / Characteristics Non-Labored Spontaneous Non-Labored Spontaneous Respiratory Depth Normal Normal Blood Pressure 189/84 H Blood Pressure [Right Arm] 199/111 H Blood Pressure Mean 119 Blood Pressure Mean [Right Arm] 140 Blood Pressure Position [Right Arm] Sitting Pulse Oximetry 98 98 98 Oxygen Delivery Method Room Air Room Air Sepsis Recent Fever Within 48 Hours No Sepsis New/Unexplained Change in Mental Status No Sepsis Action Taken by Nursing No Action Required Laboratory Data Result diagrams: 10/11/22 20:30 10/11/22 20:30 Lab Results 10/11/22 10/11/22 10/11/22 Range/Units 20:30 20:30 20:30 WBC 1.89 L (4.8-10.8) K/ul RBC 3.03 L (3.93-5.22) M/uL Hgb 9.4 L (12.0-16.0) g/dl Hct 27.2 L (34.1-44.9) % MCV 89.8 (80.0-100.0) fL MCH 31.0 (25.0-34.0) pg MCHC 34.6 (32.0-36.0) g/dL RDW Std Deviation 48.9 H (36.4-46.3) fL RDW Coeff of Paty 15.0 H (11.5-14.5) % Plt Count 69 L (130-400) K/uL MPV 10.9 (9.4-12.3) fL Immature Gran % (Auto) 7.4 % Neut % (Auto) 46.0 % Lymph % (Auto) 29.6 % [place] % (Auto) 13.8 % Eos % (Auto) 2.1 % Baso % (Auto) 1.1 % Neut # (Auto) 0.87 L* (1.4-6.5) K/uL Lymph # (Auto) 0.56 L (1.2-3.4) K/uL [place] # (Auto) 0.26 (0.24-0.82) K/uL Eos # (Auto) 0.04 (0-0.50) K/uL Baso # (Auto) 0.02 (0-0.2) K/uL Immature Gran # (Auto) 0.14 H (0.00-0.02) K/uL Dohle Bodies 1+ PT 12.8 H (9.0-12.0) Seconds INR 1.2 H (0.9-1.1) APTT 30.2 (21.0-31.0) Seconds PTT Ratio 1.1 Sodium 135 L (136-145) mmol/L Potassium 4.8 (3.5-5.1) mmol/L Chloride 108 H (98-107) mmol/L Carbon Dioxide 22 (21-32) mmol/L Anion Gap 5 (3-11) BUN 39 H (6-23) mg/dl Creatinine 2.75 H (0.6-1.2) mg/dl Est Cr Clr Drug Dosing 20.2 ml/min Est GFR ( Amer) 20.9 ml/min Est GFR (Non-Af Amer) 18.0 ml/min BUN/Creatinine Ratio 14.2 (10-20) Glucose 219 H (70-99(Fasting)) mg/dl Calcium 8.0 L (8.5-10.1) mg/dl Magnesium 1.2 L (1.7-2.4) mg/dl Total Bilirubin 1.2 H (0.2-1.0) mg/dl AST 35 (13-39) U/L ALT 11 (7-52) U/L Alkaline Phosphatase 61 (34-104) U/L Troponin I High Sens 19.8 H (0-14) pg/ml B-Natriuretic Peptide (0-100) pg/ml Total Protein 4.9 L (6.0-8.3) gm/dl Albumin 2.8 L (3.4-5.0) gm/dl Globulin 2.1 L (2.5-4.0) gm/dl Albumin/Globulin Ratio 1.3 (0.9-2) SARS-CoV-2 (PCR) (Negative) Influenza Type A (PCR) (Neg) Influenza Type B (PCR) (Neg) RSV (RT-PCR) (Neg) 10/11/22 10/11/22 10/11/22 Range/Units 20:30 22:12 22:12 WBC (4.8-10.8) K/ul RBC (3.93-5.22) M/uL Hgb (12.0-16.0) g/dl Hct (34.1-44.9) % MCV (80.0-100.0) fL MCH (25.0-34.0) pg MCHC (32.0-36.0) g/dL RDW Std Deviation (36.4-46.3) fL RDW Coeff of Paty (11.5-14.5) % Plt Count (130-400) K/uL MPV (9.4-12.3) fL Immature Gran % (Auto) % Neut % (Auto) % Lymph % (Auto) % [place] % (Auto) % Eos % (Auto) % Baso % (Auto) % Neut # (Auto) (1.4-6.5) K/uL Lymph # (Auto) (1.2-3.4) K/uL [place] # (Auto) (0.24-0.82) K/uL Eos # (Auto) (0-0.50) K/uL Baso # (Auto) (0-0.2) K/uL Immature Gran # (Auto) (0.00-0.02) K/uL Dohle Bodies PT (9.0-12.0) Seconds INR (0.9-1.1) APTT (21.0-31.0) Seconds PTT Ratio Sodium (136-145) mmol/L Potassium (3.5-5.1) mmol/L Chloride (98-107) mmol/L Carbon Dioxide (21-32) mmol/L Anion Gap (3-11) BUN (6-23) mg/dl Creatinine (0.6-1.2) mg/dl Est Cr Clr Drug Dosing ml/min Est GFR ( Amer) ml/min Est GFR (Non-Af Amer) ml/min BUN/Creatinine Ratio (10-20) Glucose (70-99(Fasting)) mg/dl Calcium (8.5-10.1) mg/dl Magnesium (1.7-2.4) mg/dl Total Bilirubin (0.2-1.0) mg/dl AST (13-39) U/L ALT (7-52) U/L Alkaline Phosphatase (34-104) U/L Troponin I High Sens 19.9 H (0-14) pg/ml B-Natriuretic Peptide 359 H (0-100) pg/ml Total Protein (6.0-8.3) gm/dl Albumin (3.4-5.0) gm/dl Globulin (2.5-4.0) gm/dl Albumin/Globulin Ratio (0.9-2) SARS-CoV-2 (PCR) POSITIVE A* (Negative) Influenza Type A (PCR) Negative (Neg) Influenza Type B (PCR) Negative (Neg) RSV (RT-PCR) Negative (Neg) Administered Medications Sodium Chloride (Nss 1000ml) 1,000 mls @ 125 mls/hr IV .Q8H HYACINTH Stop: 11/10/22 21:44 Last Admin: 10/11/22 21:46 Dose: 125 mls/hr Documented By: SAVAGE Discontinued Medications Magnesium Sulfate/Dextrose (Magnesium Sulfate / D5w) 1 gm in 100 mls @ 100 mls/hr IV NOW STA Stop: 10/11/22 22:39 Last Infusion: 10/11/22 22:41 Dose: 0 mls/hr Documented By: Admin: 10/11/22 21:46 Dose: 100 mls/hr Documented By: SAVAGE Famotidine (Pepcid 20mg Iv Push) 20 mg in 5 mls @ 2.5 mls/min IV NOW STA Stop: 10/11/22 21:41 Last Admin: 10/11/22 21:46 Dose: 2.5 mls/min Documented By: SAVAGE Discharge Plan Visit Data Chief Complaint: Shortness of Breath/Dyspnea Stated Complaint: SOB ED Provider: Boston Arana Discharge Problem: COVID-19, Renal insufficiency, Pancytopenia, Hypomagnesemia Forms Stand Alone Forms: My [facility] [place] Aptible Prescriptions Prescriptions: No Action (DME) lancets [OneTouch Delica Plus Lancet] 33 gauge misc See Rx Instructions .ROUTE .MEDSUPPLY Qty: 100 3RF Rx Instructions: Test 3 times daily (DME) OneTouch Verio test strips Strip See Rx Instructions .ROUTE .MEDSUPPLY Qty: 100 3RF Rx Instructions: Test 3 times daily solifenacin [Vesicare] 5 mg tablet 5 mg PO DAILY Qty: 90 3RF tacrolimus 1 mg capsule 1 mg PO .COMPLEX Qty: 270 1RF Rx Instructions: 1 mg PO 1 mg PO; TAKE 2 CAPS IN THE MORNING AND 1 CAPS AT NIGHT; duloxetine 20 mg capsule,delayed release(DR/EC) 20 mg PO HS Qty: 90 1RF (DME) pen needle, diabetic [BD Ultra-Fine Leilani Pen Needle] 32 gauge x 5/32" needle See Rx Instructions .ROUTE .MEDSUPPLY Qty: 360 3RF Rx Instructions: Inject with new needle up to 4x a day pantoprazole 40 mg tablet,delayed release (DR/EC) 40 mg PO DAILY Lantus Solostar U-100 Insulin 100 unit/mL (3 mL) insulin pen 24 unit subcut QPM famotidine 40 mg tablet 40 mg PO DAILY Qty: 90 1RF Referrals Referrals: She Davis DO [Primary Care Provider] -
[2022-10-12] MEDS ORDERED: MAGNESIUM SULFATE / D5W 1 GM/100 ML BAG IV ONE (01:46)
[2022-10-12] MEDS ORDERED: GLUCOSE 10 TAB/TUBE PO PRN (01:46)
[2022-10-12] MEDS ORDERED: PHARMACY GLYCEMIC MGMT CONSULT PRN ×2 (01:46→16:21)
[2022-10-12] MEDS ORDERED: DEXTROSE 50% 50 ML SYRINGE IV PRN (01:46)
[2022-10-12] MEDS ORDERED: POLYETHYLENE (MIRALAX) 17 GM PACK PO PRN (01:46)
[2022-10-12] MEDS ORDERED: CARBOHYDRATES FOR HYPOGLYCEMIA PO PRN (01:46)
[2022-10-12] MEDS ORDERED: ACETAMINOPHEN 325 MG TAB PO PRN (01:46)
[2022-10-12] MEDS ORDERED: GLUCAGON FOR INJ 1 MG VIAL SQ PRN (01:46)
[2022-10-12] MEDS ORDERED: GLUCOSE 40% GEL 15 GM TUBE PO PRN (01:46)
[2022-10-12] MEDS ORDERED: FLUARIX QUADRIVALENT 0.5 ML SYR IM ONE (02:16)
[2022-10-12] MEDS: INSULIN ASPART PER UNIT SC SCH ×5 (02:47→20:49)
[2022-10-12] MEDS ORDERED: LANTUS PER UNIT CHARGE SQ SCH (03:00)
[2022-10-12] MEDS: TACROLIMUS 1 MG CAP PO SCH ×3 (03:04→21:11)
[2022-10-12] MEDS: HEPARIN SOD 5,000 UNIT/0.5 ML VIAL SQ SCH ×3 (05:26→21:10)
[2022-10-12] MEDS: SODIUM CHLORIDE 0.9% 1000ML 1,000 ML IV SCH (05:27)
[2022-10-12 08:09] LABS: Hematocrit (blood only) 24.1 % (34.1-44.9); Hemoglobin 8.3 g/dl (12.0-16.0); Mean Corpuscular Hemoglobin 30.9 pg (25.0-34.0); Mean Corpuscular Hgb Conc 34.4 g/dL (32.0-36.0); Mean Corpuscular Volume 89.6 fL (80.0-100.0); Mean Platelet Volume 11.6 fL (9.4-12.3); Platelet Count 63 K/uL (130-400); Red Blood Count 2.69 M/uL (3.93-5.22); White Blood Count 1.97 K/ul (4.8-10.8)
--- NOTE | 2022-10-12 08:10 | XRay Report ---
XR chest 1V portable HISTORY: Shortness of breath. Atypical chest pain. COMPARISON: Chest and right rib series 08/31/2021. FINDINGS: Old, healed right fifth rib fracture. No focal lung consolidations to suggest a pneumonia. No evidence for pulmonary edema. No pleural effusions. No pneumothorax. The heart is normal in size. Degenerative changes noted within the right shoulder. IMPRESSION: No acute process. ACT 112: Negative or not required by law. Electronically signed by: Payam Norris M.D. 10/12/2022 8:08 AM
[2022-10-12 08:28] LABS: Albumin Globulin Ratio 1.4 (0.9-2); Albumin Level 2.4 gm/dl (3.4-5.0); BUN Creatinine Ratio 14.2 (10-20); Bilirubin,Total 0.8 mg/dl (0.2-1.0); Calcium 7.3 mg/dl (8.5-10.1); Creatinine Clr Calc Pharmacy 21.4 ml/min; Est GFR (African American) 22.2 ml/min; Est GFR (Non-African American) 19.2 ml/min; Globulin 1.7 gm/dl (2.5-4.0); Magnesium 1.5 mg/dl (1.7-2.4); Potassium 4.4 mmol/L (3.5-5.1); Total Protein 4.1 gm/dl (6.0-8.3)
[2022-10-12] MEDS: FAMOTIDINE 40 MG TABLET PO SCH (08:34)
[2022-10-12 08:51] LABS: Basophils # (auto) 0.02 K/uL (0-0.2); Eosinophils # (auto) 0.06 K/uL (0-0.50); Immature Granulocytes # (auto) 0.16 K/uL (0.00-0.02); Immature Granulocytes % (auto) 8.1 %; Lymphocytes # (auto) 0.81 K/uL (1.2-3.4); Lymphocytes % (auto) 41.1 %; Monocytes # (auto) 0.28 K/uL (0.24-0.82); Monocytes % (auto) 14.2 %; Neutrophils # (auto) 0.64 K/uL (1.4-6.5); Neutrophils % (auto) 32.6 %
[2022-10-12] MEDS ORDERED: dexAMETHasone 6 MG in SYRINGE 0 ML IV SCH (09:00)
--- NOTE | 2022-10-12 09:16 | Electrocardiogram Report ---
Test Reason : Blood Pressure : / mmHG Vent. Rate : 091 BPM Atrial Rate : 091 BPM P-R Int : 130 ms QRS Dur : 086 ms QT Int : 386 ms P-R-T Axes : 059 -38 014 degrees QTc Int : 474 ms Normal sinus rhythm Left axis deviation Poor R wave progression, consider anterior CO vs. lead placement vs. LVH Nonspecific T wave abnormality Anterior leads Abnormal ECG When compared with ECG of 18-MAR-2020 19:38, Nonspecific T wave abnormality now evident in Anterior leads QT has lengthened Confirmed by Teodoro Hinojosa ([id number]) on 10/12/2022 9:16:07 AM Referred By: REFERRED SELF Confirmed By:Teodoro Hinojosa
[2022-10-12] MEDS: MAGNESIUM SULFATE / D5W 1 GM/100 ML BAG IV SCH ×4 (09:30→14:46)
[2022-10-12 10:19] LABS: Estimated Average Glucose 97 mg/dl
[2022-10-12] MEDS: LACTATED RINGER'S 1,000 ML IV SCH ×2 (10:30→21:12)
--- NOTE | 2022-10-12 11:49 | Pharmacy Report ---
Pharmacy Glycemic Short Note 2 - Date of Service October 12, 2022 - Glycemic Short BSG Results (Last 24 hours): 10/11/22 10/12/22 10/12/22 20:30 01:33 07:28 Glucose 219 H 124 H POC Glucose 196 H 10/12/22 10/12/22 08:14 11:07 Glucose POC Glucose 114 H 92 OUTPATIENT ANTIDIABETIC REGIMEN: * Lantus 24 units SQ qPM * HbA1c: 5.0% (10/12/22) ASSESSMENT: * Ms Hendricks is a 62yo F with type 1.5 DM (managed as a type 1, per outpt endo notes). * Pt was initially ordered IV dexamethasone, which is likely to lead to significant steroid-induced hyperglycemia, but this has been placed on hold. Pt did receive one 6mg dose this morning. * Basal/bolus insulin was initiated on admission, rather than provide her total daily insulin in basal form. * Prefer to distribute insulin regimen ~50%:50% basal:prandial to minimize hypo/hyperglycemia. * Will continue to follow and adjust regimen as indicated. PLAN FOR INPATIENT GLYCEMIC CONTROL: * Hold outpatient oral diabetes medications * Basal insulin * Lantus 8 units SQ BID (pt received 12 units early this morning) * Bolus insulin * NovoLog per scale ACHS or Q6hrs while NPO * Goal Range: Low 110 mg/dL - High 140 mg/dL * Correction Factor: 45 mg/dL/unit * Nutritional / Prandial insulin per carb ratio of 1 unit per 15 grams CHO consumed
--- NOTE | 2022-10-12 19:55 | Hospitalist Progress Note ---
Date of Service October 12, 2022 Assessment & Plan (1) COVID-19: Plan: Not on oxygen. Low CRP. CXR clear. Auscultation clear. Will stop dexamethasone. (2) Pancytopenia: Plan: Suspect secondary to COVID-19 in setting of aplastic aregenerative anemia Neutropenic isolation precautions (3) Elevated serum creatinine: Plan: Above baseline. Main reason for continued admission along with worsening anemia. Switched to LR @ 80ml/hr to avoid hyperchloremia with NSS (4) MGUS (monoclonal gammopathy of unknown significance): (5) Anemia aplastic aregenerative: Plan: Continue to monitor for need for blood transfusion CBC in AM (6) Diabetes mellitus with neurological manifestations, uncontrolled: Plan: HbA1C 5.0 Consult pharmacy for glycemic control (7) GERD (gastroesophageal reflux disease): Plan: Continue pantoprazole 40mg PO daily + famotidine 40mg PO daily (8) Liver transplant recipient: Plan: Continue tacrolimus (9) Hypomagnesemia: Plan: Mg level 1.5. Mg sulfate 4g IV today. Rpt level tomorrow. (10) Peripheral neuropathy: Plan: Continue duloxetine 20mg PO HS Plan VTE Prophylaxis - heparin 7500 units SQ q8h Diet - heart healthy, T1DM Disposition - stable for transfer to med/surg Admission and Anticipated Discharge Date Admission Date: October 11, 2022 Subjective Reports feeling much improved since admission. Ongoing shortness of breath mainly on exertion but not requiring O2. No lightheadedness, chest pain or dizziness. Review of Systems Review of Systems: All systems reviewed & are unremarkable except as noted in Subjective Physical Exam Constitutional: WD/WN, vitals as above Respiratory: normal respiratory effort, lungs clear to auscultation Cardiovascular: RRR, no murmur, no edema Gastrointestinal (Abdomen): normal bowel sounds, soft, nontender, no hepatosplenomegaly Skin: no rashes, warm and dry Psychiatric: A+Ox3, euthymic affect Results & Data Results & Data ([facility]) Vital Signs (Past 12 Hours) Vital Signs Temp Pulse Resp BP Pulse Ox O2 Del Method 10/12/22 16:04 36.8 C 89 18 175/90 H 99 Room Air 10/12/22 10:57 36.9 C 89 20 165/79 H 96 Room Air 10/12/22 08:00 Room Air 10/12/22 08:26 36.8 C 93 H 18 164/88 H 95 Room Air PG Care Time/CCT Total # of Minutes Spent Total Time Spent with Patient: Total time spent is greater than 50% in coordination of care (as documented) at patient's floor/unit and/or counseling patient: Coding Level of Care Code 14951 Subseq Hosp Care Lvl 2 Diagnoses COVID-19 U07.1 Pancytopenia D61.818 Elevated serum creatinine R79.89 MGUS (monoclonal gammopathy of unknown significance) D47.2 Anemia aplastic aregenerative D61.9 Diabetes mellitus with neurological manifestations, uncontrolled E11.49; E11.65 GERD (gastroesophageal reflux disease) K21.9 Esophagitis presence: esophagitis presence not specified Liver transplant recipient Z94.4 Hypomagnesemia E83.42 Peripheral neuropathy G62.9 Peripheral neuropathy type: polyneuropathy, unspecified (1) GERD (gastroesophageal reflux disease) Esophagitis presence: esophagitis presence not specified Qualified Code(s): K21.9 - Gastro-esophageal reflux disease without esophagitis (2) Peripheral neuropathy Peripheral neuropathy type: polyneuropathy, unspecified Qualified Code(s): G62.9 - Polyneuropathy, unspecified
[2022-10-12] MEDS: LANTUS PER UNIT CHARGE SQ SCH (20:49)
[2022-10-12] MEDS: DULoxetine HCL 20 MG CAP PO SCH (21:12)
[2022-10-13] MEDS: HEPARIN SOD 5,000 UNIT/0.5 ML VIAL SQ SCH ×3 (05:02→22:11)
[2022-10-13 08:08] LABS: Hematocrit (blood only) 24.6 % (34.1-44.9); Hemoglobin 8.5 g/dl (12.0-16.0); Platelet Count 94 K/uL (130-400); White Blood Count 2.65 K/ul (4.8-10.8)
[2022-10-13] MEDS: INSULIN ASPART PER UNIT SC SCH ×4 (08:25→22:12)
[2022-10-13] MEDS: LANTUS PER UNIT CHARGE SQ SCH ×2 (08:26→20:42)
[2022-10-13 08:28] LABS: BUN Creatinine Ratio 15.2 (10-20); Calcium 7.3 mg/dl (8.5-10.1); Creatinine Clr Calc Pharmacy 19.1 ml/min; Est GFR (African American) 19.1 ml/min; Est GFR (Non-African American) 16.5 ml/min; Magnesium 2.6 mg/dl (1.7-2.4); Potassium 4.3 mmol/L (3.5-5.1)
[2022-10-13] MEDS: LACTATED RINGER'S 1,000 ML IV SCH (08:30)
[2022-10-13] MEDS: FAMOTIDINE 40 MG TABLET PO SCH (08:31)
[2022-10-13] MEDS: TACROLIMUS 1 MG CAP PO SCH ×2 (08:31→22:12)
[2022-10-13 09:00] LABS: Basophils # (auto) 0.02 K/uL (0-0.2); Basophils % (auto) 0.8 %; Echinocytes 1+; Immature Granulocytes # (auto) 0.22 K/uL (0.00-0.02); Immature Granulocytes % (auto) 8.3 %; Lymphocytes # (auto) 0.69 K/uL (1.2-3.4); Mean Corpuscular Hemoglobin 30.5 pg (25.0-34.0); Mean Corpuscular Hgb Conc 34.6 g/dL (32.0-36.0); Mean Corpuscular Volume 88.2 fL (80.0-100.0); Monocytes # (auto) 0.38 K/uL (0.24-0.82); Monocytes % (auto) 14.3 %; Neutrophils # (auto) 1.34 K/uL (1.4-6.5); Neutrophils % (auto) 50.6 %; RDW Coefficient of Variation 15.1 % (11.5-14.5); Red Blood Count 2.79 M/uL (3.93-5.22); Schistocytes 1+
--- NOTE | 2022-10-13 17:27 | Ultrasound Report ---
US renal/blad retro comp HISTORY: 62 years-old Female MADELEINE acute renal injury COMPARISON: CT 08/04/2022 TECHNIQUE: Multiple real-time sonographic images of the kidneys and urinary bladder were obtained ass essing grayscale appearance and color flow FINDINGS: The right kidney measures 9.0 cm and is unremarkable. The left kidney measures 9.2 cm. There are a fe w cysts again noted within the left kidney measuring up to 2.0 cm. No left-sided renal calculi, hydro nephrosis or solid renal mass lesions. Cortical medullary differentiation is preserved bilaterally. Partial distention of the urinary bladder with mild wall thickening. IMPRESSION: No renal calculi or hydronephrosis. ACT 112: Negative or not required by law. The above report was generated using voice recognition software. It may contain grammatical, syntax o r spelling errors. Electronically signed by: Timbo Sanchez M.D. 10/13/2022 5:26 PM
[2022-10-13 21:09] LABS: BUN Creatinine Ratio 15.9 (10-20); Calcium 7.5 mg/dl (8.5-10.1); Creatinine Clr Calc Pharmacy 17.6 ml/min; Est GFR (African American) 17.3 ml/min; Est GFR (Non-African American) 14.9 ml/min; Potassium 4.3 mmol/L (3.5-5.1)
[2022-10-13] MEDS: DULoxetine HCL 20 MG CAP PO SCH (22:11)
--- NOTE | 2022-10-13 23:36 | Hospitalist Progress Note ---
Date of Service October 13, 2022 Assessment & Plan (1) COVID-19: Plan: Not on oxygen. Low CRP. CXR clear. Auscultation clear. Dexamethasone discontinued. (2) MADELEINE (acute kidney injury): Plan: UA micro +/- culture Renal US to assess for obstructive cause Repeat level tonight and will consult nephrology if continues to increase Possible still a problem with effective volume and may need diuretics rather than initial fluids given but not significantly hypervolemic on exam. Will need long catheter for accurate I&Os (3) Pancytopenia: Plan: Suspect secondary to COVID-19 in setting of aplastic aregenerative anemia Improving (4) MGUS (monoclonal gammopathy of unknown significance): (5) Anemia aplastic aregenerative: Plan: Continue to monitor for need for blood transfusion CBC in AM (6) Diabetes mellitus with neurological manifestations, uncontrolled: Plan: HbA1C 5.0 Consult pharmacy for glycemic control (7) GERD (gastroesophageal reflux disease): Plan: Continue pantoprazole 40mg PO daily + famotidine 40mg PO daily (8) Liver transplant recipient: Plan: Continue tacrolimus (9) Hypomagnesemia: Plan: Mg level 1.5. Mg sulfate 4g IV yesterday. Rpt level 2.6 (10) Peripheral neuropathy: Plan: Continue duloxetine 20mg PO HS Plan VTE Prophylaxis - heparin 7500 units SQ q8h Diet - heart healthy, T1DM Disposition - continue on med/surg Admission and Anticipated Discharge Date Admission Date: October 11, 2022 Subjective Asymptomatic despite worsening renal function. No dysuria, change in frequency, smell or color. Chronic right CVA tenderness after liver surgery but no acute new CVA tenderness. No fever or chills. Regarding anemia; no lightheadedness, dizziness, chest pain or shortness of breath. Review of Systems Review of Systems: All systems reviewed & are unremarkable except as noted in Subjective Physical Exam Constitutional: WD/WN, vitals as above Respiratory: normal respiratory effort, lungs clear to auscultation Cardiovascular: Rate/Rhythm: regular rate and regular rhythm Extremities: normal capillary refill and + pedal edema (1+ b/l equal); no calf tenderness Gastrointestinal (Abdomen): normal bowel sounds, soft, nontender, no hepatosplenomegaly Skin: no rashes, warm and dry Psychiatric: A+Ox3, euthymic affect Genitourinary: + CVA tenderness (chronic right, no acute) Results & Data Results & Data ([facility]) Vital Signs (Past 12 Hours) Vital Signs Temp Pulse Resp BP Pulse Ox O2 Del Method 10/13/22 22:34 36.3 C L 88 18 156/74 H 100 Room Air 10/13/22 15:27 36.5 C 80 17 151/80 H 100 Room Air 10/13/22 11:49 36.6 C 91 H 19 152/81 H 99 Room Air PG Care Time/CCT Total # of Minutes Spent Total Time Spent with Patient: Total time spent is greater than 50% in coordination of care (as documented) at patient's floor/unit and/or counseling patient: Coding Level of Care Code 79972 Subseq Hosp Care Lvl 2 Diagnoses COVID-19 U07.1 MADELEINE (acute kidney injury) N17.9 Pancytopenia D61.818 MGUS (monoclonal gammopathy of unknown significance) D47.2 Anemia aplastic aregenerative D61.9 Diabetes mellitus with neurological manifestations, uncontrolled E11.49; E11.65 GERD (gastroesophageal reflux disease) K21.9 Esophagitis presence: esophagitis presence not specified Liver transplant recipient Z94.4 Hypomagnesemia E83.42 Peripheral neuropathy G62.9 Peripheral neuropathy type: polyneuropathy, unspecified (1) GERD (gastroesophageal reflux disease) Esophagitis presence: esophagitis presence not specified Qualified Code(s): K21.9 - Gastro-esophageal reflux disease without esophagitis (2) Peripheral neuropathy Peripheral neuropathy type: polyneuropathy, unspecified Qualified Code(s): G62.9 - Polyneuropathy, unspecified
[2022-10-14 03:33] LABS: Appearance Urine Cloudy (Clear); Bacteria Urine Automated 1+ (Negative); Bilirubin Urine Negative (Negative); Blood Urine 2+ (Negative); Color Urine Yellow; Epithelial Cell Urine Auto >30 /lpf (0-5); Glucose Urine UA 2+ (Negative); Ketones Urine Negative (Negative); Leukocyte Esterase Urine Negative (Negative); Nitrite Urine Negative (Negative); Protein Urine 4+ (Negative); Specific Gravity Urine 1.019 (1.000-1.030); Urobilinogen Urine Negative (Negative)
[2022-10-14 04:00] LABS: RBC Urine Automated 0-4 /hpf (0-4); Renal Epithelial Cells Urine 0-5 /lpf (0-5)
[2022-10-14] MEDS: HEPARIN SOD 5,000 UNIT/0.5 ML VIAL SQ SCH ×3 (05:44→22:56)
[2022-10-14 06:59] LABS: Hematocrit (blood only) 23.3 % (34.1-44.9); Hemoglobin 7.9 g/dl (12.0-16.0); Mean Platelet Volume 11.3 fL (9.4-12.3); Platelet Count 92 K/uL (130-400); White Blood Count 2.75 K/ul (4.8-10.8)
[2022-10-14 07:28] LABS: BUN Creatinine Ratio 17.4 (10-20); Calcium 7.1 mg/dl (8.5-10.1); Creatinine Clr Calc Pharmacy 18.9 ml/min; Est GFR (African American) 18.9 ml/min; Est GFR (Non-African American) 16.3 ml/min; Magnesium 2.5 mg/dl (1.7-2.4); Potassium 4.5 mmol/L (3.5-5.1)
[2022-10-14 08:09] LABS: Basophils # (auto) 0.01 K/uL (0-0.2); Basophils % (auto) 0.4 %; Eosinophils % (auto) 3.6 %; Immature Granulocytes # (auto) 0.22 K/uL (0.00-0.02); Lymphocytes # (auto) 1.36 K/uL (1.2-3.4); Lymphocytes % (auto) 49.5 %; Mean Corpuscular Hemoglobin 30.7 pg (25.0-34.0); Mean Corpuscular Hgb Conc 33.9 g/dL (32.0-36.0); Mean Corpuscular Volume 90.7 fL (80.0-100.0); Monocytes % (auto) 10.9 %; Neutrophils # (auto) 0.76 K/uL (1.4-6.5); Neutrophils % (auto) 27.6 %; Polychromasia 1+; RDW Coefficient of Variation 15.4 % (11.5-14.5); RDW Standard Deviation 51.5 fL (36.4-46.3); Red Blood Count 2.57 M/uL (3.93-5.22)
[2022-10-14] MEDS: INSULIN ASPART PER UNIT SC SCH ×4 (08:19→22:55)
[2022-10-14] MEDS: LANTUS PER UNIT CHARGE SQ SCH ×2 (08:19→20:56)
[2022-10-14] MEDS: FAMOTIDINE 40 MG TABLET PO SCH (08:23)
[2022-10-14] MEDS: TACROLIMUS 1 MG CAP PO SCH ×2 (08:23→21:09)
[2022-10-14 11:08] LABS: Ferritin 541.4 ng/ml (8-388)
--- NOTE | 2022-10-14 11:18 | Nephrology Consultation ---
Date of Consultation October 14, 2022 Assessment & Plan (1) MADELEINE (acute kidney injury): (2) COVID-19: (3) Pancytopenia: (4) MGUS (monoclonal gammopathy of unknown significance): (5) Liver transplant recipient: (6) Microscopic hematuria: (7) Proteinuria: Plan 62 y o F with stage 3B CKD with prior history of dialysis requiring MADELEINE and residual renal impairment to as well as history of long-term use of calcineurin inhibitor. Baseline creatinine has been around 1.4-1.5. Noted to have rather rapid worsening of renal functions over last few months, creatinine currently up to 3-3.2. Urinalysis with proteinuria and microscopic hematuria. --With rapid decline in kidney function, history of MGUS, urinalysis with proteinuria and hematuria, will do serological and paraproteinemia workup to see whether there is any change in underlying monoclonal gammopathy. 24 h urine fro better assessment of proteinuria. --check iron study --continue tacrolimus --maintain po intake Will follow. Thank you for allowing me to participate in your patient's care. It was a pleasure to see Rhona. History of Present Illness Reason for Consultation: Acute kidney injury. Attending Physician: Abhi Frankel MD History of Present Illness Rhona Hendricks is a 8-year-old female with past medical history significant for stage IIIB CKD, history of dialysis requiring MADELEINE, s/p liver transplant presented at admitted to the hospital with shortness of breath and found to have positive COVID-19. Nephrology consult was requested as she was found to have MADELEINE with progressive worsening. EMR records are reviewed in detail during patient's visit. Rhona present to the hospital on 10/11/2022 with 2 days history of shortness of breath with progressive worsening. She was also having generalized weakness and repeated falls at home. In ER she was found to be positive for COVID-19. Chest x-ray was unremarkable. Overall her shortness of breath improved, denies cough or chest pain. No fever or chills. She initially received dexamethasone which was discontinued as clinically she is doing much better. 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 Hospital course was complicated by MADELEINE requiring dialysis for a brief period and eventually renal function is improved and creatinine has been staying stable around 1.4- 1.5. She has been following with [facility], last visit was in November. Record review showed her creatinine has been slowly worsening since sometime May, creatinine was 1.9 on 07/31/2022, prior to that creatinine was 1.4 sometime in April. On tacrolimus 2 mg in a.m. and 1 mg in p.m., last trough level was 8.7. On admission she was noted to have MADELEINE with cr 2.8 which peaked to 3.2 and staying relatively stable. Electrolyte has been acceptable. Hemoglobin has been low and dropped to 7.9 this morning. Urinalysis showed 2+ proteinuria and microscopic hematuria. Renal ultrasound showed bilateral kidney around 9.2-9.3 cm. Has history of MGUS. Albumin was 2.7 She was otherwise feeling well this am. BP slightly elevated. Allergies Allergy/AdvReac Type Severity Reaction Status Date / Time Iodinated Contrast Media Allergy Intermediate Sneezing Verified 10/11/22 22:22 and breaks out into a rash Penicillins Allergy Intermediate Hives Verified 10/11/22 22:22 metformin Allergy Unknown Unknown Verified 10/11/22 22:22 Home Medications Medication Instructions Recorded Confirmed Type lancets 33 gauge (JuspTouch Delica #100 ea 08/23/20 07/31/22 Rx Plus Lancet) pantoprazole 40 mg tablet,delayed 40 mg PO DAILY 09/04/20 10/11/22 History release pen needle, diabetic 32 gauge x #360 ea 04/04/21 07/31/22 Rx 5/32" (BD Ultra-Fine Leilani Pen Needle) insulin glargine 100 unit/mL (3 24 unit subcut QPM 06/09/21 10/11/22 History mL) subcutaneous pen (Lantus Solostar U-100 Insulin) blood sugar diagnostic (JuspTouch #100 ea 06/19/21 07/31/22 Rx Verio test strips) solifenacin 5 mg tablet (Vesicare) 5 mg PO DAILY #90 tabs 03/04/22 10/11/22 Rx tacrolimus 1 mg capsule, 1 mg PO .COMPLEX #270 caps 05/01/22 10/11/22 Rx immediate-release famotidine 40 mg tablet 40 mg PO DAILY #90 tabs 07/31/22 10/11/22 Rx duloxetine 20 mg capsule,delayed 20 mg PO HS #90 caps 08/24/22 10/11/22 Rx release Patient History Medical History (Updated 10/14/22 @ 11:21 by Roxy Sykes MD) Anemia of chronic disease Bilateral foot-drop COPD (chronic obstructive pulmonary disease) Degenerative disc disease, lumbar Diabetic neuropathy Esophageal varices GERD (gastroesophageal reflux disease) 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) Lumbar pain with radiation down both legs MGUS (monoclonal gammopathy of unknown significance) Osteoarthritis Osteopenia Peripheral neuropathy Primary biliary cirrhosis Proteinuria Right patella fracture SARS-CoV-2 positive Urinary incontinence, urge Vitamin D deficiency Surgical History (Updated 08/03/22 @ 06:40 by She Davis DO) History of section X 2 History of colonoscopy History of liver transplant (10/13/18) History of lumbar laminectomy for spinal cord decompression (04/22/21) L3-L5 laminectomy History of tonsillectomy History of tooth extraction History of total abdominal hysterectomy and bilateral salpingo-oophorectomy Liver transplant recipient [facility] 10/13/18 Nasal polyp X 3 REMOVED Family History Unknown Adopted Social History Smoking Status: Never smoker Second Hand Exposure: No; Hx Alcohol Use: No Hx Substance Use: No Preferred Language: Yakut Communication Ability: Effective Visual Impairment: No Limitations Hearing Ability: Hard of Hearing Personal Insurance Advisor Required: No Beliefs That Will Affect Care: None marital status: Current Living Situation: Spouse Current Living Situation Comment: Lives with current occupational status: employed How many Children do You have: 3 Other Information That Helps Us Care for You: No Feels Safe at Home: Yes Safety Concerns: Feels Safe At This Time Childhood Exposure to Second-Hand Smoke: No caffeine: Yes during the past year weight has: remained stable Dental Care, Regularly: No Physical Activity Frequency: Daily Seatbelt Use: always Sunscreen Use: No Assistive Devices: None Review of Systems Review of Systems: Detail ROS was otherwise unremarkable. Physical Exam Constitutional: WD/WN, vitals as above no acute distress Eyes: + anicteric sclerae ENMT: Ears: no hearing impairment Neck: normal visual inspection Respiratory: no respiratory distress and no cough Auscultation: lungs clear to auscultation bilaterally Cardiovascular: RRR, no murmur, no edema Gastrointestinal (Abdomen): Inspection/Auscultation: abdomen normal to inspection and normal bowel sounds Percussion/Palpation: abdomen soft; abdomen nontender Musculoskeletal: Extremities: extremities normal to inspection Skin: no rashes Neurologic: no focal motor deficits and not confused Psychiatric: Orientation: alert and oriented x 3 Affect: euthymic affect Results & Data ([facility]) Vital Signs (Past 12 Hours) Vital Signs Temp Pulse Resp BP Pulse Ox O2 Del Method O2 Del Method 10/14/22 08:00 Room Air 10/14/22 07:51 36.5 C 83 19 155/84 H 100 Room Air 10/14/22 01:00 Room Air PG Care Time/CCT Total # of Minutes Spent Total Time Spent with Patient: Total time spent is greater than 50% in coordination of care (as documented) at patient's floor/unit and/or counseling patient: Coding Level of Care Code 91490 Inpt Consult Level 5 Diagnoses MADELEINE (acute kidney injury) N17.9 COVID-19 U07.1 Pancytopenia D61.818 MGUS (monoclonal gammopathy of unknown significance) D47.2 Liver transplant recipient Z94.4 Microscopic hematuria R31.29 Proteinuria R80.9
--- NOTE | 2022-10-14 11:31 | Pharmacy Report ---
Pharmacy Glycemic Short Note 2 - Date of Service October 14, 2022 - Glycemic Short BSG Results (Last 24 hours): 10/13/22 10/13/22 10/13/22 11:48 16:44 20:05 Glucose POC Glucose 184 H 89 115 H 10/13/22 10/14/22 10/14/22 20:19 06:24 07:49 Glucose 107 H 109 H POC Glucose 101 H OUTPATIENT ANTIDIABETIC REGIMEN: * Lantus 24 units SQ qPM * HbA1c: 5.0% (10/12/22) ASSESSMENT: 10/14/22: * BSG's have been well maintained with respect to goal range, however fasting BSG today was below goal. * Dexamethasone 6mg IV dose from 10/12/22 may no longer be exerting glycemic effects- will reduce Lantus dose. * Carb ratio/correction factor was tightened to 35/12 yesterday, will re-loosen to 45/15 as postprandial BSG's have been downtrending. 10/12/22 * Ms Hendricks is a 62yo F with type 1.5 DM (managed as a type 1, per outpt endo notes). * Pt was initially ordered IV dexamethasone, which is likely to lead to significant steroid-induced hyperglycemia, but this has been placed on hold. Pt did receive one 6mg dose this morning. * Basal/bolus insulin was initiated on admission, rather than provide her total daily insulin in basal form. * Prefer to distribute insulin regimen ~50%:50% basal:prandial to minimize hypo/hyperglycemia. * Will continue to follow and adjust regimen as indicated. PLAN FOR INPATIENT GLYCEMIC CONTROL: * Hold outpatient oral diabetes medications * Basal insulin * Lantus 6 units SQ BID * Bolus insulin * NovoLog per scale ACHS or Q6hrs while NPO * Goal Range: Low 110 mg/dL - High 140 mg/dL * Correction Factor: 45 mg/dL/unit * Nutritional / Prandial insulin per carb ratio of 1 unit per 15 grams CHO consumed
[2022-10-14] MEDS: hydrALAZINE HCL 20 MG/ML VIAL IV PRN (16:49)
--- NOTE | 2022-10-14 19:30 | Hospitalist Progress Note ---
Date of Service October 14, 2022 Assessment & Plan (1) COVID-19: Plan: Not hypoxic. Low CRP. CXR clear. Auscultation clear. Dexamethasone discontinued. (2) MADELEINE (acute kidney injury): Plan: UA concerning for significant proteinuria - quantification pending, culture pending - no urinary symptoms to suggest infection Renal US r/o obstructive cause Appreciate nephrology consult, myeloma workup ordered (3) Pancytopenia: Plan: Suspect secondary to COVID-19 in setting of aplastic aregenerative anemia Improving (4) MGUS (monoclonal gammopathy of unknown significance): (5) Anemia aplastic aregenerative: Plan: Continue to monitor for need for blood transfusion CBC in AM (6) Diabetes mellitus with neurological manifestations, uncontrolled: Plan: HbA1C 5.0 Consult pharmacy for glycemic control (7) GERD (gastroesophageal reflux disease): Plan: Continue pantoprazole 40mg PO daily + famotidine 40mg PO daily (8) Liver transplant recipient: Plan: Continue tacrolimus (9) Hypomagnesemia: Plan: Continue to monitor (10) Peripheral neuropathy: Plan: Continue duloxetine 20mg PO HS Plan VTE Prophylaxis - heparin 7500 units SQ q8h Diet - heart healthy, T1DM Disposition - continue on med/surg Admission and Anticipated Discharge Date Admission Date: October 11, 2022 Subjective Continues to be asymptomatic with no respiratory symptoms from COVID standpoint. No urinary symptoms. Review of Systems Review of Systems: All systems reviewed & are unremarkable except as noted in Subjective Physical Exam Constitutional: WD/WN, vitals as above Respiratory: normal respiratory effort, lungs clear to auscultation Cardiovascular: Rate/Rhythm: regular rate and regular rhythm Gastrointestinal (Abdomen): normal bowel sounds, soft, nontender, no hepatosplenomegaly Skin: no rashes, warm and dry Psychiatric: A+Ox3, euthymic affect Results & Data Results & Data ([facility]) Vital Signs (Past 12 Hours) Vital Signs Temp Pulse Resp BP Pulse Ox O2 Del Method 10/14/22 14:58 36.8 C 84 19 172/100 H 99 Room Air 10/14/22 08:00 Room Air 10/14/22 07:51 36.5 C 83 19 155/84 H 100 Room Air PG Care Time/CCT Total # of Minutes Spent Total Time Spent with Patient: Total time spent is greater than 50% in coordination of care (as documented) at patient's floor/unit and/or counseling patient: Coding Level of Care Code 56172 Subseq Hosp Care Lvl 2 Diagnoses COVID-19 U07.1 MADELEINE (acute kidney injury) N17.9 Pancytopenia D61.818 MGUS (monoclonal gammopathy of unknown significance) D47.2 Anemia aplastic aregenerative D61.9 Diabetes mellitus with neurological manifestations, uncontrolled E11.49; E11.65 GERD (gastroesophageal reflux disease) K21.9 Esophagitis presence: esophagitis presence not specified Liver transplant recipient Z94.4 Hypomagnesemia E83.42 Peripheral neuropathy G62.9 Peripheral neuropathy type: polyneuropathy, unspecified (1) Peripheral neuropathy Peripheral neuropathy type: polyneuropathy, unspecified Qualified Code(s): G62.9 - Polyneuropathy, unspecified (2) GERD (gastroesophageal reflux disease) Esophagitis presence: esophagitis presence not specified Qualified Code(s): K21.9 - Gastro-esophageal reflux disease without esophagitis
[2022-10-14] MEDS: DULoxetine HCL 20 MG CAP PO SCH (21:09)
[2022-10-14 23:53] LABS: Adenovirus F 40/41 PCR Not Detected (NotDetected); Astrovirus PCR Not Detected (NotDetected); Campylobacter PCR Not Detected (NotDetected); Cryptosporidium PCR Not Detected (NotDetected); Cyclospora cayetanensis PCR Not Detected (NotDetected); Entamoeba histolytica PCR Not Detected (NotDetected); Enteropathogenic E.coli (EPEC) Not Detected (NotDetected); Enterotoxigenic E.coli (ETEC) Not Detected (NotDetected); Giardia lamblia PCR Not Detected (NotDetected); Norovirus GI/GII PCR Not Detected (NotDetected); Plesiomonas shigelloides PCR Not Detected (NotDetected); Rotavirus A PCR Not Detected (NotDetected); Salmonella PCR Not Detected (NotDetected); Sapovirus PCR Not Detected (NotDetected); Shiga-like Toxin E.coli (STEC) Not Detected (NotDetected); Shigella/Enteroinvasive E.coli Not Detected (NotDetected); Vibrio cholerae PCR Not Detected (NotDetected); Vibrio species PCR Not Detected (NotDetected); Yersinia enterocolitica PCR Not Detected (NotDetected)
[2022-10-14 23:58] LABS: Enteroaggregative E.coli(EAEC) DETECTED (NotDetected)
[2022-10-15] MEDS: HEPARIN SOD 5,000 UNIT/0.5 ML VIAL SQ SCH ×3 (04:46→20:39)
[2022-10-15] MEDS: TACROLIMUS 1 MG CAP PO SCH ×2 (07:59→20:52)
[2022-10-15] MEDS: FAMOTIDINE 40 MG TABLET PO SCH (07:59)
[2022-10-15] MEDS: INSULIN ASPART PER UNIT SC SCH ×4 (08:09→21:11)
[2022-10-15] MEDS: LANTUS PER UNIT CHARGE SQ SCH ×2 (08:10→21:13)
[2022-10-15 09:08] LABS: BUN Creatinine Ratio 16.7 (10-20); Calcium 7.1 mg/dl (8.5-10.1); Creatinine Clr Calc Pharmacy 19.2 ml/min; Est GFR (African American) 19.3 ml/min; Est GFR (Non-African American) 16.7 ml/min; Magnesium 2.3 mg/dl (1.7-2.4); Potassium 4.7 mmol/L (3.5-5.1)
[2022-10-15 09:21] LABS: Hematocrit (blood only) 24.7 % (34.1-44.9); Hemoglobin 8.6 g/dl (12.0-16.0); Mean Platelet Volume 10.6 fL (9.4-12.3); Platelet Count 97 K/uL (130-400); White Blood Count 2.83 K/ul (4.8-10.8)
[2022-10-15] MEDS ORDERED: CEFEPIME 2,000 MG in SYRINGE 0 ML IV ONE (09:30)
[2022-10-15] MEDS: FAMOTIDINE 20 MG TAB PO SCH (09:32)
[2022-10-15 10:13] LABS: Basophils # (auto) 0.02 K/uL (0-0.2); Basophils % (auto) 0.7 %; Eosinophils # (auto) 0.12 K/uL (0-0.50); Eosinophils % (auto) 4.2 %; Immature Granulocytes # (auto) 0.27 K/uL (0.00-0.02); Immature Granulocytes % (auto) 9.5 %; Lymphocytes # (auto) 1.34 K/uL (1.2-3.4); Lymphocytes % (auto) 47.3 %; Mean Corpuscular Hemoglobin 31.6 pg (25.0-34.0); Mean Corpuscular Hgb Conc 34.8 g/dL (32.0-36.0); Mean Corpuscular Volume 90.8 fL (80.0-100.0); Monocytes # (auto) 0.23 K/uL (0.24-0.82); Monocytes % (auto) 8.1 %; Neutrophils # (auto) 0.85 K/uL (1.4-6.5); Neutrophils % (auto) 30.2 %; RDW Coefficient of Variation 15.5 % (11.5-14.5); RDW Standard Deviation 51.2 fL (36.4-46.3); Red Blood Count 2.72 M/uL (3.93-5.22)
[2022-10-15 10:32] LABS: Eosinophils # (manual) 0.11 K/uL (0-0.50); Eosinophils % (manual) 4 %; Lymphocytes # (manual) 1.67 K/uL (1.2-3.4); Lymphocytes % (manual) 59 %; Monocytes # (manual) 0.06 K/uL (0.24-0.82); Monocytes % (manual) 2 %; Neutrophils # (manual) 0.99 K/uL (1.4-6.5); Neutrophils % (manual) 35 %; Polychromasia 1+
--- NOTE | 2022-10-15 11:45 | Nephrology Progress Note ---
Date of Service October 15, 2022 Assessment & Plan (1) MADELEINE (acute kidney injury): (2) COVID-19: (3) Pancytopenia: (4) MGUS (monoclonal gammopathy of unknown significance): (5) Liver transplant recipient: (6) Microscopic hematuria: (7) Proteinuria: Plan 62 y o F with stage 3B CKD with prior history of dialysis requiring MADELEINE and residual renal impairment to as well as history of long-term use of calcineurin inhibitor. Baseline creatinine has been around 1.4-1.5. Noted to have rather rapid worsening of renal functions over last few months, creatinine currently up to 3-3.2. Urinalysis with proteinuria and microscopic hematuria. Renal function staying relatively stable without any significant improvement, could be progression of underlying CKD, CNI nephropathy or others. waiting on serology and paraproteinemia w/u. Overall clinically stable and asymptomatic. Hb slightly better, decent iron store. --start on Amlodipine 2.5 mg daily ( may affect Tacrolimus level, will need to monitor Tacrolimus level as dose may need to be decreased). --start on Nabicarb 650 mg bid --maintain po intake, avoid NSAID --OK to be discharged with close outpt lab monitoring and f/u with her Ad Operations Coordinator in [place]. Will follow. Admission and Anticipated Discharge Date Admission Date: October 11, 2022 Mervin Melgoza was seen and evaluated this morning. Overall doing well, denies SOB, cough, CP, dizziness, lightheadedness, visual changes. BP has been slightly elevated. Review of Systems Review of Systems: Detail ROS was otherwise unremarkable. Physical Exam Constitutional: WD/WN, vitals as above no acute distress Respiratory: no respiratory distress and no cough Auscultation: lungs clear to auscultation bilaterally Cardiovascular: RRR, no murmur, no edema Musculoskeletal: Extremities: extremities normal to inspection Skin: no rashes Neurologic: no focal motor deficits Psychiatric: Orientation: alert and oriented x 3 Affect: euthymic affect Results & Data ([facility]) Vital Signs (Past 12 Hours) Vital Signs Temp Pulse Resp BP Pulse Ox O2 Del Method 10/15/22 08:00 Room Air 10/15/22 06:44 36.8 C 85 18 162/74 H 96 Room Air PG Care Time/CCT Total # of Minutes Spent Total Time Spent with Patient: Total time spent is greater than 50% in coordination of care (as documented) at patient's floor/unit and/or counseling patient: Coding Level of Care Code 84126 Subseq Hosp Care Lvl 3 Diagnoses MADELEINE (acute kidney injury) N17.9 COVID-19 U07.1 Pancytopenia D61.818 MGUS (monoclonal gammopathy of unknown significance) D47.2 Liver transplant recipient Z94.4 Microscopic hematuria R31.29 Proteinuria R80.9
[2022-10-15 13:01] LABS: Total Protein 24 Hour Urine 3473.6 mg/24 Hr (0-149.1); Urine Total Protein 926.3 mg/dl
[2022-10-15] MEDS: hydrALAZINE HCL 20 MG/ML VIAL IV PRN ×2 (16:20→20:40)
--- NOTE | 2022-10-15 16:37 | Hospitalist Progress Note ---
Date of Service October 15, 2022 Assessment & Plan (1) MADELEINE (acute kidney injury): Plan: Presented with acute kidney injury in the setting of CKD stage IIIb She is with prior history of dialysis and residual renal impairment to as well as history of long-term use of calcineurin inhibitor. Baseline creatinine has been around 1.4-1.5. Noted to have rather rapid worsening of renal functions over last few months, creatinine was up to 3-3.2, but now decreased to 2.9 the last 2 days-improving Urinalysis with proteinuria and microscopic hematuria. 24-hour urine protein significant for 3.4 g of protein --With rapid decline in kidney function, history of MGUS, urinalysis with proteinuria and hematuria, will do serological and paraproteinemia workup to see whether there is any change in underlying monoclonal gammopathy-this is pending -Appreciate nephrology consultation -Needs close outpatient nephrology follow-up after discharge-she follows with [facility] neph[facility] -Follow BMP in the morning -With metabolic acidosis, start serum bicarbonate 650 mg p.o. twice daily -Start amlodipine 2.5 Mg p.o. once daily for elevated blood pressures as per nephrology recommendation (2) UTI (urinary tract infection): Plan: Urinalysis abnormal but does have more epithelial cells and WBCs However, urine culture growing gram-negative rods x2 species Start cefepime Follow urine culture final result (3) Pancytopenia: Plan: Suspect secondary to COVID-19 in setting of aplastic aregenerative anemia Improving slightly Follow CBC She will need outpatient follow-up with her protection agent/oncologist at [facility] [place] after discharge (4) Diarrhea: Plan: Was having loose stools and stool PCR was sent-positive for enteroaggregative E. coli Could also be from COVID-19, however is immunocompromised and will treat with azithromycin 500 Mg IV daily x3 days (5) COVID-19: Plan: Presented with weakness, shortness of breath. Chest x-ray without pneumonia Initially started on dexamethasone but discontinued as she was never hypoxic. Not a candidate for remdesivir due to impaired renal function Seems to be having mild symptoms related to COVID at this time (6) MGUS (monoclonal gammopathy of unknown significance): Plan: Follow-up with hematology after discharge (7) Anemia aplastic aregenerative: Plan: Continue to monitor for need for blood transfusion-none at this time CBC in AM (8) Diabetes mellitus with neurological manifestations, uncontrolled: Plan: HbA1C 5.0 -Continue Lantus and NovoLog as needed (9) GERD (gastroesophageal reflux disease): Plan: Is typically on Protonix 40 mg daily as well as Pepcid 40 mg daily Decrease Pepcid down to 20 mg daily for renal dosing Discontinue Protonix due to renal failure (10) Liver transplant recipient: Plan: Continue tacrolimus Will need to check levels after starting amlodipine as per nephrology (11) Peripheral neuropathy: Plan: Continue duloxetine 20mg PO HS (12) Proteinuria: Plan: As above (13) Metabolic acidosis: Plan: As above, related to acute kidney injury Starting sodium bicarbonate tablets Plan VTE Prophylaxis - heparin 7500 units SQ q8h Diet - heart healthy, T1DM Disposition - continue on med/surg but hopeful for discharge home tomorrow if renal function remains stable to improved Admission and Anticipated Discharge Date Admission Date: October 11, 2022 Subjective Patient reports feeling okay today. She is making urine, moving her bowels, eating and drinking. Has a mild cough. She is not on telemetry monitoring Review of Systems Review of Systems: All systems reviewed & are unremarkable except as noted in HPI & below Physical Exam Constitutional: WD/WN, vitals as above ENMT: external ear and nose normal, oropharynx normal Neck: trachea midline, no thyromegaly Respiratory: normal respiratory effort, lungs clear to auscultation Cardiovascular: RRR, no murmur, no edema Chest (Breasts): Chest: normal inspection of chest Gastrointestinal (Abdomen): normal bowel sounds, soft, nontender, no hepatosplenomegaly Musculoskeletal: Extremities: extremities normal to inspection; no cyanosis and no clubbing Skin: no rashes, warm and dry Neurologic: moves all extremities and awake; no focal motor deficits Psychiatric: A+Ox3, euthymic affect Lymphatic: no lymphedema Results & Data Results & Data ([facility]) Vital Signs (Past 12 Hours) Vital Signs Temp Pulse Resp BP Pulse Ox O2 Del Method 10/15/22 16:06 36.9 C 79 19 179/95 H 99 Room Air 10/15/22 08:00 Room Air 10/15/22 06:44 36.8 C 85 18 162/74 H 96 Room Air Laboratory Results 12/15/22 12/15/22 12/15/22 Range/Units 20:33 16:04 11:39 WBC RBC Hgb Hct MCV MCH MCHC RDW Std Deviation RDW Coeff of Paty Plt Count MPV Immature Gran % (Auto) Neut % (Auto) Lymph % (Auto) Esmeralda % (Auto) Eos % (Auto) Baso % (Auto) Neut # (Auto) Lymph # (Auto) Esmeralda # (Auto) Eos # (Auto) Baso # (Auto) Immature Gran # (Auto) Absolute Nucleated RBC Nucleated RBC % (auto) Neutrophils % (Manual) Band Neutrophils % Lymphocytes % (Manual) Prolymphocyte % Reactive Lymphs % (Man) Monocytes % (Manual) Eosinophils % (Manual) Basophils % (Manual) Metamyelocytes % (Man) Myelocytes % (Man) Promyelocytes % (Man) Blast Cells % (Manual) Plasma Cell % (Manual) Other Cells % Nucleated RBC % Neutrophils # (Manual) Band Neutrophils # Total Absolute Neuts Lymphocytes # (Manual) Prolymphocyte # Reactive Lymphs # Total Abs Lymphocytes Monocytes # (Manual) Eosinophils # (Manual) Basophils # (Manual) Metamyelocytes # (Man) Myelocytes # (Manual) Promyelocytes # (Man) Blast Cells # (Man) Plasma Cell # (Manual) Other Cells # Nucleated RBCs # (Man) Hypersegmented Neuts Hyposegmented Neuts Hypogranular Neuts Large Granular Lymphs # Lrg Granular Lymphs Hairy Cells Smudge Cells Toxic Granulation Toxic Vacuolation Dohle Bodies Celestina Rods Platelet Estimate Hypogranular Platelets Clumped Platelets Giant Platelets Platelet Satelliting RBC Morphology Polychromasia Hypochromasia Poikilocytosis Basophilic Stippling Anisocytosis Microcytosis Macrocytosis Spherocytes Pappenheimer Bodies Sickle Cells Target Cells Tear Drop Cells Ovalocytes Stomatocytes [place] Bodies Echinocytes Acanthocytes (Spur) Rouleaux RBC Agglutinates Schistocytes Sezary Cell Sodium (136-145) mmol/L Potassium (3.5-5.1) mmol/L Chloride (98-107) mmol/L Carbon Dioxide (21-32) mmol/L Anion Gap (3-11) BUN (6-23) mg/dl Creatinine (0.6-1.2) mg/dl Est Cr Clr Drug Dosing ml/min Est GFR ( Amer) ml/min Est GFR (Non-Af Amer) ml/min BUN/Creatinine Ratio (10-20) Glucose (70-99(Fasting)) mg/dl POC Glucose 103 H 93 187 H (70-99) mg/dl Calcium (8.5-10.1) mg/dl Magnesium (1.7-2.4) mg/dl Total Protein (PEP) Albumin (PEP) Tmebq-3-Cgwyoatrt Fxdun-3-Clwgiwbyc Tacg-0-Mekhegor Ertp-3-Lrbwvuof Gamma Globulins Monoclonal Peak 3 Ser Monoclonl Protein Ser Monoclonal Prot 2 PEP Interpretation Urine Total Volume mL Ur Total Protein 24 Hr (0-149.1) mg/24 Hr Urine Total Protein mg/dl Stl C. cayetanensis PCR (NotDetected) Stool Rotavirus A PCR (NotDetected) Stl Adenov F 40/ PCR (NotDetected) Stool Astrovirus (PCR) (NotDetected) Stool Campylobacter PCR (NotDetected) Stl C. diff Tox B Gene (Neg) Stool Cryptosporidium PCR (NotDetected) Stl E.coli Shiga Tox PCR (NotDetected) Stl Enterotoxigenic E PCR (NotDetected) Stool EPEC (PCR) (NotDetected) Stool EAEC (PCR) (NotDetected) Stl E. histolytica PCR (NotDetected) Stool Giardia Lamblia PCR (NotDetected) Stool Salmonella PCR (NotDetected) Stool Sapovirus (PCR) (NotDetected) Stl P. shigelloides PCR (NotDetected) Stl Shigella/EIEC PCR (NotDetected) St Y.enterocolitica PCR (NotDetected) Stool Vibrio (PCR) (NotDetected) Stl Vibrio cholerae PCR (NotDetected) Stl Norovirus GI/GII PCR (NotDetected) Blood Parasites ID 10/15/22 10/15/22 10/15/22 Range/Units 09:51 09:09 07:57 WBC 2.83 L RBC 2.72 L Hgb 8.6 L Hct 24.7 L MCV 90.8 MCH 31.6 MCHC 34.8 RDW Std Deviation 51.2 H RDW Coeff of Paty 15.5 H Plt Count 97 L MPV 10.6 Immature Gran % (Auto) 9.5 Neut % (Auto) 30.2 Lymph % (Auto) 47.3 Esmeralda % (Auto) 8.1 Eos % (Auto) 4.2 Baso % (Auto) 0.7 Neut # (Auto) 0.85 L* Lymph # (Auto) 1.34 Esmeralda # (Auto) 0.23 L Eos # (Auto) 0.12 Baso # (Auto) 0.02 Immature Gran # (Auto) 0.27 H Absolute Nucleated RBC Nucleated RBC % (auto) Neutrophils % (Manual) 35 Band Neutrophils % Lymphocytes % (Manual) 59 Prolymphocyte % Reactive Lymphs % (Man) Monocytes % (Manual) 2 Eosinophils % (Manual) 4 Basophils % (Manual) Metamyelocytes % (Man) Myelocytes % (Man) Promyelocytes % (Man) Blast Cells % (Manual) Plasma Cell % (Manual) Other Cells % Nucleated RBC % Neutrophils # (Manual) 0.99 L Band Neutrophils # Total Absolute Neuts Lymphocytes # (Manual) 1.67 Prolymphocyte # Reactive Lymphs # Total Abs Lymphocytes Monocytes # (Manual) 0.06 L Eosinophils # (Manual) 0.11 Basophils # (Manual) Metamyelocytes # (Man) Myelocytes # (Manual) Promyelocytes # (Man) Blast Cells # (Man) Plasma Cell # (Manual) Other Cells # Nucleated RBCs # (Man) Hypersegmented Neuts Hyposegmented Neuts 1+ Hypogranular Neuts Large Granular Lymphs # Lrg Granular Lymphs Hairy Cells Smudge Cells Toxic Granulation Toxic Vacuolation Dohle Bodies Celestina Rods Platelet Estimate Hypogranular Platelets Clumped Platelets Giant Platelets Platelet Satelliting RBC Morphology Polychromasia 1+ Hypochromasia Poikilocytosis Basophilic Stippling Anisocytosis Microcytosis Macrocytosis Spherocytes Pappenheimer Bodies Sickle Cells Target Cells Tear Drop Cells Ovalocytes Stomatocytes [place] Bodies Echinocytes Acanthocytes (Spur) Rouleaux RBC Agglutinates Schistocytes Sezary Cell Sodium (136-145) mmol/L Potassium (3.5-5.1) mmol/L Chloride (98-107) mmol/L Carbon Dioxide (21-32) mmol/L Anion Gap (3-11) BUN (6-23) mg/dl Creatinine (0.6-1.2) mg/dl Est Cr Clr Drug Dosing ml/min Est GFR ( Amer) ml/min Est GFR (Non-Af Amer) ml/min BUN/Creatinine Ratio (10-20) Glucose (70-99(Fasting)) mg/dl POC Glucose (70-99) mg/dl Calcium (8.5-10.1) mg/dl Magnesium (1.7-2.4) mg/dl Total Protein (PEP) Pending Albumin (PEP) Pending Anxbx-3-Nbyicjwxz Pending Rmsbb-4-Qrdrisphs Pending Lycu-3-Towayphs Pending Yyar-3-Jtpcizrk Pending Gamma Globulins Pending Monoclonal Peak 3 Pending Ser Monoclonl Protein Pending Ser Monoclonal Prot 2 Pending PEP Interpretation Pending Urine Total Volume 375 mL Ur Total Protein 24 Hr 3473.6 H (0-149.1) mg/24 Hr Urine Total Protein 926.3 mg/dl Stl C. cayetanensis PCR (NotDetected) Stool Rotavirus A PCR (NotDetected) Stl Adenov F 40/41 PCR (NotDetected) Stool Astrovirus (PCR) (NotDetected) Stool Campylobacter PCR (NotDetected) Stl C. diff Tox B Gene (Neg) Stool Cryptosporidium PCR (NotDetected) Stl E.coli Shiga Tox PCR (NotDetected) Stl Enterotoxigenic E PCR (NotDetected) Stool EPEC (PCR) (NotDetected) Stool EAEC (PCR) (NotDetected) Stl E. histolytica PCR (NotDetected) Stool Giardia Lamblia PCR (NotDetected) Stool Salmonella PCR (NotDetected) Stool Sapovirus (PCR) (NotDetected) Stl P. shigelloides PCR (NotDetected) Stl Shigella/EIEC PCR (NotDetected) St Y.enterocolitica PCR (NotDetected) Stool Vibrio (PCR) (NotDetected) Stl Vibrio cholerae PCR (NotDetected) Stl Norovirus GI/GII PCR (NotDetected) Blood Parasites ID 10/15/22 10/15/22 10/15/22 Range/Units 07:57 07:57 07:47 WBC Cancelled RBC Cancelled Hgb Cancelled Hct Cancelled MCV Cancelled MCH Cancelled MCHC Cancelled RDW Std Deviation Cancelled RDW Coeff of Paty Cancelled Plt Count Cancelled MPV Cancelled Immature Gran % (Auto) Cancelled Neut % (Auto) Cancelled Lymph % (Auto) Cancelled Esmeralda % (Auto) Cancelled Eos % (Auto) Cancelled Baso % (Auto) Cancelled Neut # (Auto) Cancelled Lymph # (Auto) Cancelled Esmeralda # (Auto) Cancelled Eos # (Auto) Cancelled Baso # (Auto) Cancelled Immature Gran # (Auto) Cancelled Absolute Nucleated RBC Cancelled Nucleated RBC % (auto) Cancelled Neutrophils % (Manual) Cancelled Band Neutrophils % Cancelled Lymphocytes % (Manual) Cancelled Prolymphocyte % Cancelled Reactive Lymphs % (Man) Cancelled Monocytes % (Manual) Cancelled Eosinophils % (Manual) Cancelled Basophils % (Manual) Cancelled Metamyelocytes % (Man) Cancelled Myelocytes % (Man) Cancelled Promyelocytes % (Man) Cancelled Blast Cells % (Manual) Cancelled Plasma Cell % (Manual) Cancelled Other Cells % Cancelled Nucleated RBC % Cancelled Neutrophils # (Manual) Cancelled Band Neutrophils # Cancelled Total Absolute Neuts Cancelled Lymphocytes # (Manual) Cancelled Prolymphocyte # Cancelled Reactive Lymphs # Cancelled Total Abs Lymphocytes Cancelled Monocytes # (Manual) Cancelled Eosinophils # (Manual) Cancelled Basophils # (Manual) Cancelled Metamyelocytes # (Man) Cancelled Myelocytes # (Manual) Cancelled Promyelocytes # (Man) Cancelled Blast Cells # (Man) Cancelled Plasma Cell # (Manual) Cancelled Other Cells # Cancelled Nucleated RBCs # (Man) Cancelled Hypersegmented Neuts Cancelled Hyposegmented Neuts Cancelled Hypogranular Neuts Cancelled Large Granular Lymphs Cancelled # Lrg Granular Lymphs Cancelled Hairy Cells Cancelled Smudge Cells Cancelled Toxic Granulation Cancelled Toxic Vacuolation Cancelled Dohle Bodies Cancelled Celestina Rods Cancelled Platelet Estimate Cancelled Hypogranular Platelets Cancelled Clumped Platelets Cancelled Giant Platelets Cancelled Platelet Satelliting Cancelled RBC Morphology Cancelled Polychromasia Cancelled Hypochromasia Cancelled Poikilocytosis Cancelled Basophilic Stippling Cancelled Anisocytosis Cancelled Microcytosis Cancelled Macrocytosis Cancelled Spherocytes Cancelled Pappenheimer Bodies Cancelled Sickle Cells Cancelled Target Cells Cancelled Tear Drop Cells Cancelled Ovalocytes Cancelled Stomatocytes Cancelled [place] Bodies Cancelled Echinocytes Cancelled Acanthocytes (Spur) Cancelled Rouleaux Cancelled RBC Agglutinates Cancelled Schistocytes Cancelled Sezary Cell Cancelled Sodium 137 (136-145) mmol/L Potassium 4.7 (3.5-5.1) mmol/L Chloride 112 H (98-107) mmol/L Carbon Dioxide 19 L (21-32) mmol/L Anion Gap 6 (3-11) BUN 49 H (6-23) mg/dl Creatinine 2.93 H (0.6-1.2) mg/dl Est Cr Clr Drug Dosing 19.2 ml/min Est GFR ( Amer) 19.3 ml/min Est GFR (Non-Af Amer) 16.7 ml/min BUN/Creatinine Ratio 16.7 (10-20) Glucose 120 H (70-99(Fasting)) mg/dl POC Glucose 127 H (70-99) mg/dl Calcium 7.1 L (8.5-10.1) mg/dl Magnesium 2.3 (1.7-2.4) mg/dl Total Protein (PEP) Albumin (PEP) Xfsjh-7-Jskxqrhts Zfebv-3-Vdscrnqsw Zvei-1-Jtwkxhni Uatg-4-Mkfnqtpc Gamma Globulins Monoclonal Peak 3 Ser Monoclonl Protein Ser Monoclonal Prot 2 PEP Interpretation Urine Total Volume mL Ur Total Protein 24 Hr (0-149.1) mg/24 Hr Urine Total Protein mg/dl Stl C. cayetanensis PCR (NotDetected) Stool Rotavirus A PCR (NotDetected) Stl Adenov F 40/41 PCR (NotDetected) Stool Astrovirus (PCR) (NotDetected) Stool Campylobacter PCR (NotDetected) Stl C. diff Tox B Gene (Neg) Stool Cryptosporidium PCR (NotDetected) Stl E.coli Shiga Tox PCR (NotDetected) Stl Enterotoxigenic E PCR (NotDetected) Stool EPEC (PCR) (NotDetected) Stool EAEC (PCR) (NotDetected) Stl E. histolytica PCR (NotDetected) Stool Giardia Lamblia PCR (NotDetected) Stool Salmonella PCR (NotDetected) Stool Sapovirus (PCR) (NotDetected) Stl P. shigelloides PCR (NotDetected) Stl Shigella/EIEC PCR (NotDetected) St Y.enterocolitica PCR (NotDetected) Stool Vibrio (PCR) (NotDetected) Stl Vibrio cholerae PCR (NotDetected) Stl Norovirus GI/GII PCR (NotDetected) Blood Parasites ID Cancelled 10/14/22 10/14/22 Range/Units 22:00 22:00 WBC RBC Hgb Hct MCV MCH MCHC RDW Std Deviation RDW Coeff of Paty Plt Count MPV Immature Gran % (Auto) Neut % (Auto) Lymph % (Auto) Esmeralda % (Auto) Eos % (Auto) Baso % (Auto) Neut # (Auto) Lymph # (Auto) Esmeralda # (Auto) Eos # (Auto) Baso # (Auto) Immature Gran # (Auto) Absolute Nucleated RBC Nucleated RBC % (auto) Neutrophils % (Manual) Band Neutrophils % Lymphocytes % (Manual) Prolymphocyte % Reactive Lymphs % (Man) Monocytes % (Manual) Eosinophils % (Manual) Basophils % (Manual) Metamyelocytes % (Man) Myelocytes % (Man) Promyelocytes % (Man) Blast Cells % (Manual) Plasma Cell % (Manual) Other Cells % Nucleated RBC % Neutrophils # (Manual) Band Neutrophils # Total Absolute Neuts Lymphocytes # (Manual) Prolymphocyte # Reactive Lymphs # Total Abs Lymphocytes Monocytes # (Manual) Eosinophils # (Manual) Basophils # (Manual) Metamyelocytes # (Man) Myelocytes # (Manual) Promyelocytes # (Man) Blast Cells # (Man) Plasma Cell # (Manual) Other Cells # Nucleated RBCs # (Man) Hypersegmented Neuts Hyposegmented Neuts Hypogranular Neuts Large Granular Lymphs # Lrg Granular Lymphs Hairy Cells Smudge Cells Toxic Granulation Toxic Vacuolation Dohle Bodies Celestina Rods Platelet Estimate Hypogranular Platelets Clumped Platelets Giant Platelets Platelet Satelliting RBC Morphology Polychromasia Hypochromasia Poikilocytosis Basophilic Stippling Anisocytosis Microcytosis Macrocytosis Spherocytes Pappenheimer Bodies Sickle Cells Target Cells Tear Drop Cells Ovalocytes Stomatocytes [place] Bodies Echinocytes Acanthocytes (Spur) Rouleaux RBC Agglutinates Schistocytes Sezary Cell Sodium (136-145) mmol/L Potassium (3.5-5.1) mmol/L Chloride (98-107) mmol/L Carbon Dioxide (21-32) mmol/L Anion Gap (3-11) BUN (6-23) mg/dl Creatinine (0.6-1.2) mg/dl Est Cr Clr Drug Dosing ml/min Est GFR ( Amer) ml/min Est GFR (Non-Af Amer) ml/min BUN/Creatinine Ratio (10-20) Glucose (70-99(Fasting)) mg/dl POC Glucose (70-99) mg/dl Calcium (8.5-10.1) mg/dl Magnesium (1.7-2.4) mg/dl Total Protein (PEP) Albumin (PEP) Xnnyi-7-Idcgzpicq Skmcz-5-Hqurzgjnx Yylx-9-Fjrgkijs Wrhp-5-Frwnngua Gamma Globulins Monoclonal Peak 3 Ser Monoclonl Protein Ser Monoclonal Prot 2 PEP Interpretation Urine Total Volume mL Ur Total Protein 24 Hr (0-149.1) mg/24 Hr Urine Total Protein mg/dl Stl C. cayetanensis PCR Not Detected (NotDetected) Stool Rotavirus A PCR Not Detected (NotDetected) Stl Adenov F 40/41 PCR Not Detected (NotDetected) Stool Astrovirus (PCR) Not Detected (NotDetected) Stool Campylobacter PCR Not Detected (NotDetected) Stl C. diff Tox B Gene Negative Cdiff Gene (Neg) Stool Cryptosporidium PCR Not Detected (NotDetected) Stl E.coli Shiga Tox PCR Not Detected (NotDetected) Stl Enterotoxigenic E PCR Not Detected (NotDetected) Stool EPEC (PCR) Not Detected (NotDetected) Stool EAEC (PCR) DETECTED A* (NotDetected) Stl E. histolytica PCR Not Detected (NotDetected) Stool Giardia Lamblia PCR Not Detected (NotDetected) Stool Salmonella PCR Not Detected (NotDetected) Stool Sapovirus (PCR) Not Detected (NotDetected) Stl P. shigelloides PCR Not Detected (NotDetected) Stl Shigella/EIEC PCR Not Detected (NotDetected) St Y.enterocolitica PCR Not Detected (NotDetected) Stool Vibrio (PCR) Not Detected (NotDetected) Stl Vibrio cholerae PCR Not Detected (NotDetected) Stl Norovirus GI/GII PCR Not Detected (NotDetected) Blood Parasites ID PG Care Time/CCT Total # of Minutes Spent Total Time Spent with Patient: Total time spent is greater than 50% in coordination of care (as documented) at patient's floor/unit and/or counseling patient: Coding Level of Care Code 57380 Subseq Hosp Care Lvl 3 Diagnoses MADELEINE (acute kidney injury) N17.9 UTI (urinary tract infection) N39.0 Pancytopenia D61.818 Diarrhea R19.7 COVID-19 U07.1 MGUS (monoclonal gammopathy of unknown significance) D47.2 Anemia aplastic aregenerative D61.9 Diabetes mellitus with neurological manifestations, uncontrolled E11.49; E11.65 GERD (gastroesophageal reflux disease) K21.9 Esophagitis presence: esophagitis presence not specified Liver transplant recipient Z94.4 Peripheral neuropathy G62.9 Peripheral neuropathy type: polyneuropathy, unspecified Proteinuria R80.9 Metabolic acidosis E87.20 (1) Peripheral neuropathy Peripheral neuropathy type: polyneuropathy, unspecified Qualified Code(s): G62.9 - Polyneuropathy, unspecified (2) GERD (gastroesophageal reflux disease) Esophagitis presence: esophagitis presence not specified Qualified Code(s): K21.9 - Gastro-esophageal reflux disease without esophagitis
[2022-10-15] MEDS: SODIUM BICARBONATE 650 MG TAB PO SCH (20:52)
[2022-10-15] MEDS: DULoxetine HCL 20 MG CAP PO SCH (20:52)
[2022-10-15] MEDS ORDERED: AZITHROMYCIN 500 MG in DEXTROSE 5% 250 ML IV SCH (23:00)
[2022-10-15] MEDS: amLODIPine BESYLATE 5 MG TAB PO SCH (23:32)
[2022-10-16] MEDS: HEPARIN SOD 5,000 UNIT/0.5 ML VIAL SQ SCH (05:34)
[2022-10-16 05:52] LABS: Creatinine Ur 133 mg/dL (20-275); Protein, Urine Random 1080 mg/dL (5-24); Ur Protein/Creat Ratio mg/g 8120 mg/g creat (24-184); Urine Abnormal Protein Band 1 DNR mg/dL (NONE DETECTED); Urine Abnormal Protein Band 2 DNR mg/dL (NONE DETECTED); Urine Abnormal Protein Band 3 DNR mg/dL (NONE DETECTED)
[2022-10-16] MEDS: TACROLIMUS 1 MG CAP PO SCH (08:21)
[2022-10-16] MEDS: SODIUM BICARBONATE 650 MG TAB PO SCH (08:22)
[2022-10-16] MEDS: amLODIPine BESYLATE 5 MG TAB PO SCH (08:22)
[2022-10-16] MEDS: FAMOTIDINE 20 MG TAB PO SCH (08:22)
[2022-10-16] MEDS ORDERED: amLODIPine BESYLATE 5 MG TAB PO ONE (09:00)
[2022-10-16] MEDS ORDERED: CEFEPIME 1,000 MG in SYRINGE 0 ML IV SCH (09:00)
[2022-10-16 09:02] LABS: Basophils # (auto) 0.03 K/uL (0-0.2); Basophils % (auto) 1.1 %; Eosinophils # (auto) 0.17 K/uL (0-0.50); Hematocrit (blood only) 24.9 % (34.1-44.9); Hemoglobin 8.5 g/dl (12.0-16.0); Immature Granulocytes # (auto) 0.05 K/uL (0.00-0.02); Immature Granulocytes % (auto) 1.8 %; Lymphocytes % (auto) 45.8 %; Mean Platelet Volume 10.1 fL (9.4-12.3); Monocytes # (auto) 0.28 K/uL (0.24-0.82); Monocytes % (auto) 9.9 %; Neutrophils # (auto) 1.01 K/uL (1.4-6.5); Neutrophils % (auto) 35.4 %; Platelet Count 113 K/uL (130-400); White Blood Count 2.84 K/ul (4.8-10.8)
[2022-10-16] MEDS: INSULIN ASPART PER UNIT SC SCH ×2 (09:04→12:16)
[2022-10-16] MEDS: LANTUS PER UNIT CHARGE SQ SCH (09:05)
[2022-10-16 09:30] LABS: Albumin Level 2.5 gm/dl (3.4-5.0); BUN Creatinine Ratio 15.7 (10-20); Calcium 7.5 mg/dl (8.5-10.1); Creatinine Clr Calc Pharmacy 20.6 ml/min; Est GFR (Non-African American) 18.1 ml/min; Magnesium 2.3 mg/dl (1.7-2.4); Phosphorus 3.8 mg/dl (2.5-4.9)
[2022-10-16 09:49] LABS: Mean Corpuscular Hemoglobin 31.1 pg (25.0-34.0); Mean Corpuscular Hgb Conc 34.1 g/dL (32.0-36.0); Mean Corpuscular Volume 91.2 fL (80.0-100.0); RDW Coefficient of Variation 15.5 % (11.5-14.5); RDW Standard Deviation 51.4 fL (36.4-46.3); Red Blood Count 2.73 M/uL (3.93-5.22)
--- NOTE | 2022-10-16 10:08 | Nephrology Progress Note ---
Date of Service October 16, 2022 Assessment & Plan (1) MADELEINE (acute kidney injury): (2) COVID-19: (3) Pancytopenia: (4) MGUS (monoclonal gammopathy of unknown significance): (5) Liver transplant recipient: (6) Microscopic hematuria: (7) Proteinuria: Plan 62 y o F with stage 3B CKD with prior history of dialysis requiring MADELEINE and residual renal impairment to as well as history of long-term use of calcineurin inhibitor. Baseline creatinine has been around 1.4-1.5. Noted to have rather rapid worsening of renal functions over last few months, creatinine currently up to 3-3.2. Urinalysis with proteinuria and microscopic hematuria. Renal function staying relatively stable, could be progression of underlying CKD, CNI nephropathy or others. waiting on serology and paraproteinemia w/u. Overall clinically stable and asymptomatic. Hb stable home, decent iron store. --increase Amlodipine to 5 mg daily ( may affect Tacrolimus level, will need to monitor Tacrolimus level as dose may need to be decreased). --continue on N[place] 650 mg bid --maintain po intake, avoid NSAID --OK to be discharged with close outpt lab monitoring and f/u with her [employer] in [place]. Will follow. Admission and Anticipated Discharge Date Admission Date: October 11, 2022 Mervin Melgoza was seen and evaluated this morning. Overall doing well, denies SOB, cough, CP, dizziness, lightheadedness, visual changes. BP has been slightly elevated. Relatively stable with slight improvement in creatinine this morning. Paraproteinemia workup still pending. Review of Systems Review of Systems: Detail ROS was otherwise unremarkable. Physical Exam Constitutional: WD/WN, vitals as above no acute distress Respiratory: no respiratory distress and no cough Auscultation: lungs clear to auscultation bilaterally Cardiovascular: RRR, no murmur, no edema Neurologic: no focal motor deficits Psychiatric: Orientation: alert and oriented x 3 Affect: euthymic affect Results & Data ([facility]) Vital Signs (Past 12 Hours) Vital Signs Temp Pulse Resp BP Pulse Ox O2 Del Method O2 Del Method 10/16/22 08:00 Room Air 10/16/22 07:42 36.8 C 84 16 182/92 H 97 Room Air 10/16/22 04:00 36.6 C 83 18 166/81 H 97 Room Air 10/16/22 01:00 Room Air 10/15/22 23:31 36.6 C 90 20 172/77 H 97 Room Air PG Care Time/CCT Total # of Minutes Spent Total Time Spent with Patient: Total time spent is greater than 50% in coordination of care (as documented) at patient's floor/unit and/or counseling patient: Coding Level of Care Code 79798 Subseq Hosp Care Lvl 3 Diagnoses MADELEINE (acute kidney injury) N17.9 COVID-19 U07.1 Pancytopenia D61.818 MGUS (monoclonal gammopathy of unknown significance) D47.2 Liver transplant recipient Z94.4 Microscopic hematuria R31.29 Proteinuria R80.9
[2022-10-16 12:27] LABS: Albumin 2.6 g/dL (3.8-4.8); Alpha 1 Globulin 0.3 g/dL (0.2-0.3); Alpha 2 Globulin 0.5 g/dL (0.5-0.9); Beta-1-Globulin 0.4 g/dL (0.4-0.6); Beta-2-Globulin 0.2 g/dL (0.2-0.5); Gamma Globulin 0.6 g/dL (0.8-1.7); Monoclonal Protein Band 1 DNR g/dL (NONE DETECTED); Monoclonal Protein Band 2 DNR g/dL (NONE DETECTED); Monoclonal Protein Band 3 DNR g/dL (NONE DETECTED); Total Protein 4.6 g/dL (6.1-8.1)
--- NOTE | 2022-10-16 12:34 | Discharge Summary ---
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 She has also felt weak and has had a couple of mechanical falls at home without significant injury. She also notes a cough, but does admit that she has this chronically as of the past year. She did spend time with a family member who tested positive for COVID about a week ago. No fever, chills, nausea, vomiting, headache, dizziness, chest pain, palpitations, rash, diarrhea, joint aches. Work-up in the ED significant for pancytopenia with WBC of 1.89, hemoglobin 9.4, platelets 69. INR 1.2. Sodium 135, BUN 39, creatinine 2.75. Magnesium 1.2. Troponin 19.8. BNP 359. COVID positive. Chest x-ray without any significant acute abnormalities. Her magnesium was repleted with 1 g mag sulfate, was administered famotidine 20 mg IV x1. Principal Diagnosis E.coli diarrhea, UTI, MADELEINE on CKD stage 3 with proteinuria, COVID-19 Discharge Exam Constitutional WD/WN, vitals as above Eyes + anicteric sclerae Neck trachea midline, no thyromegaly Respiratory normal respiratory effort, lungs clear to auscultation Cardiovascular Rate/Rhythm: regular rate and regular rhythm Heart Sounds: no murmur Extremities: + edema (2+ pitting edema legs bilat) Chest (Breasts) Chest: normal inspection of chest Gastrointestinal (Abdomen) normal bowel sounds, soft, nontender, no hepatosplenomegaly Musculoskeletal Extremities: extremities normal to inspection; no cyanosis and no clubbing Skin no rashes, warm and dry Neurologic moves all extremities and awake; no focal motor deficits Psychiatric A+Ox3, euthymic affect Discharge Data Allergies Allergy/AdvReac Type Severity Reaction Status Date / Time Iodinated Contrast Media Allergy Intermediate Sneezing Verified 10/11/22 22:22 and breaks out into a rash Penicillins Allergy Intermediate Hives Verified 10/11/22 22:22 metformin Allergy Unknown Unknown Verified 10/11/22 22:22 Consultations 10/11/22 22:32 ED Decision to Admit Stat 10/13/22 23:29 Consult Nephrology Routine Ordered Studies 10/13/22 08:37 US Renal Bladder [US renal/blad retro comp] Urgent Hospital Course (1) MADELEINE (acute kidney injury): Presented with acute kidney injury in the setting of CKD stage IIIb She is with prior history of dialysis and residual renal impairment to as well as history of long-term use of calcineurin inhibitor. Baseline creatinine has been around 1.4-1.5. Noted to have rather rapid worsening of renal functions over last few months, creatinine was up to 3-3.2, but now decreased to 2.97-improving/stable Urinalysis with proteinuria and microscopic hematuria. 24-hour urine protein significant for 3.4 g of protein With metabolic acidosis No hyperkalema Is making urine BPs elevated With peripheral edema, no pulm edema, not hypoxic --With rapid decline in kidney function, history of MGUS, urinalysis with proteinuria and hematuria, will do serological and paraproteinemia workup to see whether there is any change in underlying monoclonal gammopathy-this is pending at time of discharge -Appreciate nephrology consultation -Needs close outpatient nephrology follow-up after discharge-she follows with [facility] neph[facility] -Follow BMP in 3 days as outpt -With metabolic acidosis, start serum bicarbonate 650 mg p.o. twice daily -Start amlodipine 5 Mg p.o. once daily for elevated blood pressures as per ne phrology recommendation (2) UTI (urinary tract infection): Urinalysis abnormal but does have more epithelial cells and WBCs However, urine culture growing gram-negative rods x2 species-Micro lab says it is E. coli but awaiting final sensitivities Started cefepime and tolerated despite allergy to PCN--> send home with 5 more days of renally dosed cefdinir 300mg po once daily Follow urine culture final result after discharge with PCP Warned to watch for signs of allergic reaction to cefdinir although given she tolerated cefepime, chances low (3) Pancytopenia: Suspect secondary to COVID-19 in setting of aplastic aregenerative anemia Improving slightly/stable Follow CBC in 3 days as outpt She will need outpatient follow-up with [facility]-this will be arranged (4) Diarrhea: Was having loose stools x 1 month and stool PCR was sent-positive for en teroaggregative E. coli Could also be from COVID-19, however is immunocompromised and will treat with azithromycin 500 Mg daily x3 days (5) COVID-19: Presented with weakness, shortness of breath. Chest x-ray without pneumonia Initially started on dexamethasone but discontinued as she was never hypoxic. Not a candidate for remdesivir due to impaired renal function Seems to be having mild symptoms related to COVID at this time (6) MGUS (monoclonal gammopathy of unknown significance): Follow-up with hematology after discharge (7) Anemia aplastic aregenerative: Continue to monitor for need for blood transfusion-none at this time CBC in 3 days as outpt hgb stable at 8.5 (8) Diabetes mellitus with neurological manifestations, uncontrolled: HbA1C 5.0 -Continue Lantus on discharge (9) GERD (gastroesophageal reflux disease): Is typically on Protonix 40 mg daily as well as Pepcid 40 mg daily Decrease Pepcid down to 20 mg daily for renal dosing Discontinue Protonix due to renal failure (10) Liver transplant recipient: Continue tacrolimus Will need to check levels after starting amlodipine as per nephrology (11) Peripheral neuropathy: Continue duloxetine 20mg PO HS (12) Proteinuria: As above (13) Metabolic acidosis: As above, related to acute kidney injury Started sodium bicarbonate tablets Plan VTE Prophylaxis - heparin 7500 units SQ q8h Diet - heart healthy, T1DM Disposition - stable for dc to home Total Time Total Time Spent Total Time Spent (In Minutes): 40 min Discussed care with Nephrology on day of discharge Discharge Plan Discharge Items Patient Disposition: Home - Self-Care Reason For Visit: SOB Discharge Diagnosis: COVID-19, Acute kidney injury, Proteinuria, UTI, E. coli diarrheal infection Condition on Discharge: Fair Activity: As commented below Bathing: No limitations Exercise/Sports: As tolerated Non-emergency contact: Primary Care Provider and Room Service Clerk Call non-emergency contact if: you have any medication questions and your symptoms worsen Follow-up/Referrals: She Davis DO [Primary Care Provider] - 11/06/22 8:15 am (Follow up within 1-2 weeks. Scheduled with Pritesh Serrano PA-C in [place]) Elyse Feliciano CRNP [Outside Practitioners] - 11/09/22 11:30 am (This appointment is at the [facility]. Please arrive 15 minutes prior to appointment time.) Diet: Carb Consistent or DM2 and Dialysis Renal Ambulatory Orders: Complete Blood Count with Diff (Routine) Timeframe: 3 Days Location: Determined by Patient Ordered By: Carmelina Jacobo Renal Function Panel (Routine) Timeframe: 3 Days Location: Determined by Patient Ordered By: Carmelina Jacobo Addtl Attending Provider Instructions: You have worsening kidney failure and are spilling a lot of protein into your urine. It is very important that you keep your scheduled appointment with the Room Service Clerk in [place]. You will need to get blood work checked at the [facility] lab in [place] with the results to be sent to your Room Service Clerk to check your kidney function. There are some labs that are still pending at the time of your discharge that tell us what is causing your kidney failure. Once these results are in, they will be sent to your Room Service Clerk. You also had a urinary tract infection and an E. coli infection in your stool . You'll need to finish out a course of antibiotics for these infections with azithromycin x 2 more days and with cefdinir for 5 more days. You were started on a new medication to better control your blood pressure called amlodipine. This may affect your tacrolimus levels so you'll need to have these checked in the near future with your Room Service Clerk or transplant team. You were also started on sodium bicarbonate tablets to keep your blood acid level regulated. Your protonix was stopped and your Pepcid dose was reduced to 20mg daily due to your kidney failure. You should NEVER take any NSAIDs such as ibuprofen, naproxen,Motrin,Advil, etc. You should also STOP taking the Vesicare given your urinary tract infection and your kidney failure. Because of your anemia, it is very important that you follow up with the [facility] at [facility]. You will be contacted with an appointment date and time for this. Pending Studies at Discharge: Yes Studies:: Final Urine culture result; SPEP,UPEP,Serology for renal failure Stand-Alone Forms: [facility], Smoking Cessation Medications and DC Order Prescriptions: New amlodipine [Norvasc] 5 mg Tablet 5 mg PO QAM Qty: 30 0RF famotidine 20 mg Tablet 20 mg PO DAILY Qty: 30 0RF sodium bicarbonate 650 mg Tablet 650 mg PO BID Qty: 60 0RF azithromycin 500 mg tablet 500 mg PO DAILY 2 Days Qty: 2 0RF cefdinir 300 mg capsule 300 mg PO DAILY Qty: 5 0RF Continued (DME) lancets [OneTouch Delica Plus Lancet] 33 gauge misc See Rx Instructions .ROUTE .MEDSUPPLY Qty: 100 3RF Rx Instructions: Test 3 times daily (DME) OneTouch Verio test strips Strip See Rx Instructions .ROUTE .MEDSUPPLY Qty: 100 3RF Rx Instructions: Test 3 times daily tacrolimus 1 mg capsule 1 mg PO .COMPLEX Qty: 270 1RF Rx Instructions: 1 mg PO 1 mg PO; TAKE 2 CAPS IN THE MORNING AND 1 CAPS AT NIGHT; duloxetine 20 mg capsule,delayed release(DR/EC) 20 mg PO HS Qty: 90 1RF (DME) pen needle, diabetic [BD Ultra-Fine Leilani Pen Needle] 32 gauge x 5/32" needle See Rx Instructions .ROUTE .MEDSUPPLY Qty: 360 3RF Rx Instructions: Inject with new needle up to 4x a day Lantus Solostar U-100 Insulin 100 unit/mL (3 mL) insulin pen 24 unit subcut QPM Discontinued solifenacin [Vesicare] 5 mg tablet 5 mg PO DAILY Qty: 90 3RF pantoprazole 40 mg tablet,delayed release (DR/EC) 40 mg PO DAILY famotidine 40 mg tablet 40 mg PO DAILY Qty: 90 1RF Discharge Orders: Discharge Order (Routine); Ordered 10/16/22 Ordered By: Carmelina Jacobo Admission Data Admit Date/Time: 10/11/22 23:12 Attending Provider: Carmelina Jacobo Admit Provider: Patrice Menendez Primary Care Provider: She Davis Other Providers: Phillip Tobin Fahima Other Interventions: Discharge Summary Assessment (RN) Last Done: 10/16/22 12:45 Coding Level of Care Code D/C DAY MANAGEMENT >30 MINS Diagnoses MADELEINE (acute kidney injury) N17.9 UTI (urinary tract infection) N39.0 Pancytopenia D61.818 Diarrhea R19.7 COVID-19 U07.1 MGUS (monoclonal gammopathy of unknown significance) D47.2 Anemia aplastic aregenerative D61.9 Diabetes mellitus with neurological manifestations, uncontrolled E11.49; E11.65 GERD (gastroesophageal reflux disease) K21.9 Esophagitis presence: esophagitis presence not specified Liver transplant recipient Z94.4 Peripheral neuropathy G62.9 Peripheral neuropathy type: polyneuropathy, unspecified Proteinuria R80.9 Metabolic acidosis E87.20
--- NOTE | 2022-10-16 14:10 | Pharmacy Report ---
Pharmacy Glycemic Short Note 2 - Date of Service October 16, 2022 - Glycemic Short BSG Results (Last 24 hours): 10/15/22 10/15/22 10/16/22 16:04 20:33 07:31 Glucose POC Glucose 93 103 H 138 H 10/16/22 10/16/22 08:15 11:41 Glucose 135 H POC Glucose 122 H OUTPATIENT ANTIDIABETIC REGIMEN: * Lantus 24 units SQ qPM * HbA1c: 5.0% (10/12/22) ASSESSMENT: 10/16/22: * Patient received 19 units of insulin yesterday of which 12 were basal * Blood sugar goal increased to 120-160 due to low blood sugars * Fasting blood glucose within goal range * Stressors stable 10/14/22: * BSG's have been well maintained with respect to goal range, however fasting BSG today was below goal. * Dexamethasone 6mg IV dose from 10/12/22 may no longer be exerting glycemic effects- will reduce Lantus dose. * Carb ratio/correction factor was tightened to 35/12 yesterday, will re-loosen to 45/15 as postprandial BSG's have been downtrending. 10/12/22 * Ms Hendricks is a 62yo F with type 1.5 DM (managed as a type 1, per outpt endo notes). * Pt was initially ordered IV dexamethasone, which is likely to lead to significant steroid-induced hyperglycemia, but this has been placed on hold. Pt did receive one 6mg dose this morning. * Basal/bolus insulin was initiated on admission, rather than provide her total daily insulin in basal form. * Prefer to distribute insulin regimen ~50%:50% basal:prandial to minimize h ypo/hyperglycemia. * Will continue to follow and adjust regimen as indicated. PLAN FOR INPATIENT GLYCEMIC CONTROL: * Hold outpatient oral diabetes medications * Basal insulin * Lantus 6 units SQ BID * Bolus insulin * NovoLog per scale ACHS or Q6hrs while NPO * Goal Range: Low 110 mg/dL - High 140 mg/dL * Correction Factor: 45 mg/dL/unit * Nutritional / Prandial insulin per carb ratio of 1 unit per 15 grams CHO consumed
[2022-10-17] MEDS ORDERED: amLODIPine BESYLATE 5 MG TAB PO SCH (09:00)
[2022-10-18 15:53] LABS: ANCA Screen Negative (Negative); Albumin 2.3 g/dL (3.8-4.8); Alpha 1 Globulin 0.3 g/dL (0.2-0.3); Alpha 2 Globulin 0.4 g/dL (0.5-0.9); Anti Nuclear Antibody Screen NEGATIVE (NEGATIVE); Anti-Glom Basement Antibody <1.0 AI (<1.0); Beta-1-Globulin 0.3 g/dL (0.4-0.6); Beta-2-Globulin 0.2 g/dL (0.2-0.5); Complement C3 92 mg/dL (83-193); Free Kappa 108.6 mg/L (3.3-19.4); Free Kappa/Lambda Ratio 1.79 (0.26-1.65); Free Lambda 60.7 mg/L (5.7-26.3); Gamma Globulin 0.6 g/dL (0.8-1.7); Monoclonal Protein Band 1 DNR g/dL (NONE DETECTED); Monoclonal Protein Band 2 DNR g/dL (NONE DETECTED); Monoclonal Protein Band 3 DNR g/dL (NONE DETECTED); Myeloperoxidase Ab <1.0 AI (<1.0); Proteinase-3 AB <1.0 AI (<1.0)
--- NOTE | 2022-10-21 22:30 | Billing Data ---
Date of Service October 21, 2022 Coding Level of Care Code 30289 Initial Inpt Care Lvl 3
== END 2022-10-16 14:09 | disposition home or self-care (01) | DRG 178 ==
LOC: ED 20:08 → SUATTDRO 23:12 → 2S 23:12

== ENCOUNTER 2022-10-27 17:11 | Observation (INO) ==
[2022-10-27 20:51] LABS: Appearance Urine Cloudy (Clear); Bacteria Urine Automated Negative (Negative); Bilirubin Urine Negative (Negative); Blood Urine 2+ (Negative); Color Urine Yellow; Glucose Urine UA 1+ (Negative); Ketones Urine Negative (Negative); Leukocyte Esterase Urine Negative (Negative); Nitrite Urine Negative (Negative); Protein Urine 4+ (Negative); Specific Gravity Urine 1.019 (1.000-1.030); Urobilinogen Urine Negative (Negative)
[2022-10-27 21:08] LABS: INR 1.1 (0.9-1.1); Partial Thromboplastin Ratio 0.9; Partial Thromboplastin Time 25.3 Seconds (21.0-31.0); Prothrombin Time 11.4 Seconds (9.0-12.0)
[2022-10-27 21:10] LABS: Albumin Globulin Ratio 1.2 (0.9-2); Albumin Level 2.8 gm/dl (3.4-5.0); BUN Creatinine Ratio 18.1 (10-20); Bilirubin,Total 0.7 mg/dl (0.2-1.0); Calcium 8.7 mg/dl (8.5-10.1); Creatinine Clr Calc Pharmacy 21.3 ml/min; Est GFR (African American) 20.7 ml/min; Est GFR (Non-African American) 17.9 ml/min; Globulin 2.4 gm/dl (2.5-4.0); Potassium 5.4 mmol/L (3.5-5.1); Total Protein 5.2 gm/dl (6.0-8.3)
[2022-10-27 21:14] LABS: Basophils # (auto) 0.02 K/uL (0-0.2); Basophils % (auto) 0.5 %; Eosinophils # (auto) 0.18 K/uL (0-0.50); Eosinophils % (auto) 4.8 %; Hemoglobin 8.4 g/dl (12.0-16.0); Immature Granulocytes # (auto) 0.12 K/uL (0.00-0.02); Immature Granulocytes % (auto) 3.2 %; Lymphocytes # (auto) 1.49 K/uL (1.2-3.4); Lymphocytes % (auto) 40.1 %; Mean Platelet Volume 9.6 fL (9.4-12.3); Monocytes # (auto) 0.34 K/uL (0.24-0.82); Monocytes % (auto) 9.1 %; Neutrophils # (auto) 1.57 K/uL (1.4-6.5); Neutrophils % (auto) 42.3 %; Platelet Count 114 K/uL (130-400); White Blood Count 3.72 K/ul (4.8-10.8)
[2022-10-27] MEDS ORDERED: SODIUM ZIRCONIUM CYCLOSILICATE 10 GM PACKET PO STA (22:05)
[2022-10-27 22:14] LABS: Mean Corpuscular Hemoglobin 31.2 pg (25.0-34.0); Mean Corpuscular Hgb Conc 33.6 g/dL (32.0-36.0); Mean Corpuscular Volume 92.9 fL (80.0-100.0); RDW Coefficient of Variation 14.8 % (11.5-14.5); RDW Standard Deviation 49.5 fL (36.4-46.3); Red Blood Count 2.69 M/uL (3.93-5.22); Schistocytes 1+
--- NOTE | 2022-10-27 22:21 | Emergency Department Note ---
Impression & Plan Acute hyperkalemia, Pedal edema, Renal failure, Anemia ED Provider Note NAME: JULIOCESAR LU AGE: 62 SEX: F : 1960 ARRIVES VIA: Walk-In INFORMANT: [Patient] ED PROVIDER(S): [Adrián Mercado MD] CHIEF COMPLAINT: Abnormal laboratory testing HISTORY OF PRESENT ILLNESS: The patient is a 62-year-old female who was sent in for a high potassium value on outpatient labs. She had a value of 5.9 a few days ago. The patient has a history of previous dialysis need although, for 4 years, she has been able to avoid dialysis. She was recently in the hospital for COVID as well as a bowel and urine infection. She had some acute kidney injury at that time. The patient states that she has noticed some leg edema. She has been fatigued. No fever or shortness of breath. No chest pain, no vomiting or diarrhea. No current urinary complaints. REVIEW OF SYSTEMS: See HPI for pertinent positives and negatives. A total of ten systems were reviewed and were otherwise negative. PMHx/PSHx: See Below SOCIAL HISTORY: See Below. PHYSICAL EXAM: GENERAL: Patient is in no acute distress. HEENT: No acute trauma, normocephalic atraumatic, mucous membranes moist, no nasal congestion, no scleral icterus. NECK: No stridor, no adenopathy, no meningismus, trachea is midline. LUNGS: Clear to auscultation bilaterally, no wheeze, no rhonchi, breath sounds equal. HEART: Subtle systolic murmur, regular rate and rhythm. ABDOMEN: Soft, nontender, bowel sounds positive, no peritonitis. EXTREMITIES: No cyanosis. Moderate bilateral pedal edema. NEUROLOGIC: Oriented x 3, no acute motor or sensory deficits, no focal weakness. SKIN: No rash, no jaundice, no diaphoresis. Somewhat pale. DIFFERENTIAL DIAGNOSIS: Renal failure, electrolyte imbalance, hyperkalemia, infection, dehydration, acute kidney injury, among others. EMERGENCY DEPARTMENT COURSE/PROCEDURES: ECG: Indication was hyperkalemia. The ECG showed a normal sinus rhythm with a rate of 98. There was evidence for an old lateral infarct. There was no ST elevation, no PVCs. No peaked T waves. The QTC was 469. MEDICAL DECISION MAKING: There is no leukocytosis, in fact, the white count is somewhat low, this has been documented before. Patient is anemic, she has a history of anemia. The platelet count is low, she has a history of thrombocytopenia. No coagulopathy. Potassium was 5.4, slightly elevated. Creatinine was elevated at 2.77. This is a slight rise from her most recent testing. No concerning liver enzyme elevation. Urinalysis showed protein, no obvious infection. The patient presents with a higher potassium and some subtle acute kidney injury. She has noticed fatigue and some increasing pedal edema. I discussed her situation with nephrology, Dr. Sauer. He suggested a hospital admission for potassium binding agents. A dose of Lokelma was ordered orally. I did speak with the patient and her family, I spoke with case management, the on-call hospitalist has been consulted. Past Med/Surg History Medical History Anemia of chronic disease Bilateral foot-drop COPD (chronic obstructive pulmonary disease) Degenerative disc disease, lumbar Diabetic neuropathy Esophageal varices GERD (gastroesophageal reflux disease) 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) Lumbar pain with radiation down both legs MGUS (monoclonal gammopathy of unknown significance) Osteoarthritis Osteopenia Peripheral neuropathy Primary biliary cirrhosis Proteinuria Right patella fracture SARS-CoV-2 positive Urinary incontinence, urge Vitamin D deficiency Surgical History History of section History of colonoscopy History of liver transplant (10/13/18) History of lumbar laminectomy for spinal cord decompression (04/22/21) History of tonsillectomy History of tooth extraction History of total abdominal hysterectomy and bilateral salpingo-oophorectomy Liver transplant recipient Nasal polyp Family History Unknown Adopted Social History Smoking Status: Never smoker Second Hand Exposure: No; Hx Alcohol Use: No Hx Substance Use: No Preferred Language: Thai Communication Ability: Effective Visual Impairment: No Limitations Hearing Ability: Hard of Hearing Group Sales Manager Required: No Beliefs That Will Affect Care: None marital status: Current Living Situation: Spouse Current Living Situation Comment: Lives with current occupational status: employed How many Children do You have: 3 Feels Safe at Home: Yes Childhood Exposure to Second-Hand Smoke: No caffeine: Yes during the past year weight has: remained stable Dental Care, Regularly: No Physical Activity Frequency: Daily Seatbelt Use: always Sunscreen Use: No Assistive Devices: None Allergies Allergies Allergy/AdvReac Type Severity Reaction Status Date / Time Iodinated Contrast Media Allergy Intermediate Sneezing Verified 10/27/22 22:38 and breaks out into a rash Penicillins Allergy Intermediate Hives Verified 10/27/22 22:38 metformin Allergy Unknown Unknown Verified 10/27/22 22:38 Home Meds Home Medications Medication Instructions Recorded Confirmed insulin glargine 100 unit/mL (3 24 unit subcut QPM 06/09/21 10/27/22 mL) subcutaneous pen (Lantus Solostar U-100 Insulin) calcitriol 0.25 mcg capsule 0.25 mcg PO DAILY 10/23/22 10/27/22 solifenacin 5 mg tablet 5 mg PO DAILY 10/23/22 10/27/22 Previous Rx's Medication Instructions Recorded lancets 33 gauge (OneTouch Delica #100 ea 08/23/20 Plus Lancet) pen needle, diabetic 32 gauge x #360 ea 04/04/21 5/32" (BD Ultra-Fine Leilani Pen Needle) blood sugar diagnostic (OneTouch #100 ea 06/19/21 Verio test strips) tacrolimus 1 mg capsule, 1 mg PO .COMPLEX #270 caps 05/01/22 immediate-release amlodipine 5 mg tablet (Norvasc) 5 mg PO QAM #30 tabs 10/16/22 famotidine 20 mg tablet 20 mg PO DAILY #30 tabs 10/16/22 sodium bicarbonate 650 mg tablet 650 mg PO BID #60 tabs 10/16/22 albuterol sulfate 90 mcg/actuation 2 inh inhalation Q6H PRN shortness 10/23/22 aerosol inhaler of breath or wheezing #8.5 grams Results & Data (ED) Vital Signs Vital Signs - 24 hr 10/27/22 17:11 Temperature 36.4 C L Temperature Source Skin Pulse Rate 89 Respiratory Rate 20 Respiratory Effort / Characteristics Non-Labored Spontaneous Respiratory Depth Normal Blood Pressure 156/91 H Blood Pressure Mean 112 Blood Pressure Position Sitting Pulse Oximetry 100 Oxygen Delivery Method Room Air Sepsis Recent Fever Within 48 Hours No Sepsis New/Unexplained Change in Mental Status No Sepsis Action Taken by Nursing No Action Required Home Medications Current Medication List: was personally reviewed by me Laboratory Data Attestation: I reviewed the patient's lab results. Result diagrams: 10/27/22 20:36 10/27/22 20:36 Lab Results 10/27/22 10/27/22 10/27/22 Range/Units 20:36 20:36 20:36 WBC 3.72 L (4.8-10.8) K/ul RBC 2.69 L (3.93-5.22) M/uL Hgb 8.4 L (12.0-16.0) g/dl Hct 25.0 L (34.1-44.9) % MCV 92.9 (80.0-100.0) fL MCH 31.2 (25.0-34.0) pg MCHC 33.6 (32.0-36.0) g/dL RDW Std Deviation 49.5 H (36.4-46.3) fL RDW Coeff of Paty 14.8 H (11.5-14.5) % Plt Count 114 L (130-400) K/uL MPV 9.6 (9.4-12.3) fL Immature Gran % (Auto) 3.2 % Neut % (Auto) 42.3 % Lymph % (Auto) 40.1 % [place] % (Auto) 9.1 % Eos % (Auto) 4.8 % Baso % (Auto) 0.5 % Neut # (Auto) 1.57 (1.4-6.5) K/uL Lymph # (Auto) 1.49 (1.2-3.4) K/uL [place] # (Auto) 0.34 (0.24-0.82) K/uL Eos # (Auto) 0.18 (0-0.50) K/uL Baso # (Auto) 0.02 (0-0.2) K/uL Immature Gran # (Auto) 0.12 H (0.00-0.02) K/uL Hyposegmented Neuts 1+ Schistocytes 1+ PT 11.4 (9.0-12.0) Seconds INR 1.1 (0.9-1.1) APTT 25.3 (21.0-31.0) Seconds PTT Ratio 0.9 Sodium 142 (136-145) mmol/L Potassium 5.4 H (3.5-5.1) mmol/L Chloride 112 H (98-107) mmol/L Carbon Dioxide 26 (21-32) mmol/L Anion Gap 4 (3-11) BUN 50 H (6-23) mg/dl Creatinine 2.77 H (0.6-1.2) mg/dl Est Cr Clr Drug Dosing 21.3 ml/min Est GFR ( Amer) 20.7 ml/min Est GFR (Non-Af Amer) 17.9 ml/min BUN/Creatinine Ratio 18.1 (10-20) Glucose 90 (70-99(Fasting)) mg/dl Calcium 8.7 (8.5-10.1) mg/dl Total Bilirubin 0.7 (0.2-1.0) mg/dl AST 30 (13-39) U/L ALT 15 (7-52) U/L Alkaline Phosphatase 59 (34-104) U/L Total Protein 5.2 L (6.0-8.3) gm/dl Albumin 2.8 L (3.4-5.0) gm/dl Globulin 2.4 L (2.5-4.0) gm/dl Albumin/Globulin Ratio 1.2 (0.9-2) Urine Color Urine Appearance (Clear) Urine pH (4.5-7.5) Ur Specific [place] (1.000-1.030) Urine Protein (Negative) Urine Glucose (UA) (Negative) Urine Ketones (Negative) Urine Blood (Negative) Urine Nitrite (Negative) Urine Bilirubin (Negative) Urine Urobilinogen (Negative) Ur Leukocyte Esterase (Negative) Urine WBC (Auto) (0-5) /hpf Urine RBC (Auto) (0-4) /hpf U Hyaline Cast (Auto) (0-5) /lpf U Epithel Cells (Auto) (0-5) /lpf Urine Bacteria (Auto) (Negative) Ur Renal Epithelial Cell 10/27/22 Range/Units 20:36 WBC (4.8-10.8) K/ul RBC (3.93-5.22) M/uL Hgb (12.0-16.0) g/dl Hct (34.1-44.9) % MCV (80.0-100.0) fL MCH (25.0-34.0) pg MCHC (32.0-36.0) g/dL RDW Std Deviation (36.4-46.3) fL RDW Coeff of Paty (11.5-14.5) % Plt Count (130-400) K/uL MPV (9.4-12.3) fL Immature Gran % (Auto) % Neut % (Auto) % Lymph % (Auto) % [place] % (Auto) % Eos % (Auto) % Baso % (Auto) % Neut # (Auto) (1.4-6.5) K/uL Lymph # (Auto) (1.2-3.4) K/uL [place] # (Auto) (0.24-0.82) K/uL Eos # (Auto) (0-0.50) K/uL Baso # (Auto) (0-0.2) K/uL Immature Gran # (Auto) (0.00-0.02) K/uL Hyposegmented Neuts Schistocytes PT (9.0-12.0) Seconds INR (0.9-1.1) APTT (21.0-31.0) Seconds PTT Ratio Sodium (136-145) mmol/L Potassium (3.5-5.1) mmol/L Chloride (98-107) mmol/L Carbon Dioxide (21-32) mmol/L Anion Gap (3-11) BUN (6-23) mg/dl Creatinine (0.6-1.2) mg/dl Est Cr Clr Drug Dosing ml/min Est GFR ( Amer) ml/min Est GFR (Non-Af Amer) ml/min BUN/Creatinine Ratio (10-20) Glucose (70-99(Fasting)) mg/dl Calcium (8.5-10.1) mg/dl Total Bilirubin (0.2-1.0) mg/dl AST (13-39) U/L ALT (7-52) U/L Alkaline Phosphatase (34-104) U/L Total Protein (6.0-8.3) gm/dl Albumin (3.4-5.0) gm/dl Globulin (2.5-4.0) gm/dl Albumin/Globulin Ratio (0.9-2) Urine Color Yellow Urine Appearance Cloudy A (Clear) Urine pH 6.0 (4.5-7.5) Ur Specific [place] 1.019 (1.000-1.030) Urine Protein 4+ H (Negative) Urine Glucose (UA) 1+ H (Negative) Urine Ketones Negative (Negative) Urine Blood 2+ H (Negative) Urine Nitrite Negative (Negative) Urine Bilirubin Negative (Negative) Urine Urobilinogen Negative (Negative) Ur Leukocyte Esterase Negative (Negative) Urine WBC (Auto) 1-5 (0-5) /hpf Urine RBC (Auto) 10-30 H (0-4) /hpf U Hyaline Cast (Auto) 5-10 H (0-5) /lpf U Epithel Cells (Auto) 5-10 H (0-5) /lpf Urine Bacteria (Auto) Negative (Negative) Ur Renal Epithelial Cell Not Reportable Discharge Plan Visit Data Chief Complaint: Referred by Doctor Stated Complaint: ABNORMAL LABS, REFERRED BY DOCTOR ED Provider: Adrián Mercado Discharge Problem: Acute hyperkalemia, Pedal edema, Renal failure, Anemia Patient Disposition: Admitted As Inpatient Condition: Good Forms Stand Alone Forms: My [facility] [employer] Prescriptions Prescriptions: No Action (DME) lancets [OneTouch Delica Plus Lancet] 33 gauge misc See Rx Instructions .ROUTE .MEDSUPPLY Qty: 100 3RF Rx Instructions: Test 3 times daily (DME) OneTouch Verio test strips Strip See Rx Instructions .ROUTE .MEDSUPPLY Qty: 100 3RF Rx Instructions: Test 3 times daily tacrolimus 1 mg capsule 1 mg PO .COMPLEX Qty: 270 1RF Rx Instructions: 1 mg PO 1 mg PO; TAKE 2 CAPS IN THE MORNING AND 1 CAPS AT NIGHT; albuterol sulfate 90 mcg/actuation HFA aerosol inhaler 2 inh inhalation Q6H PRN (Reason: shortness of breath or wheezing) Qty: 8.5 0RF (DME) pen needle, diabetic [BD Ultra-Fine Leilani Pen Needle] 32 gauge x 5/32" needle See Rx Instructions .ROUTE .MEDSUPPLY Qty: 360 3RF Rx Instructions: Inject with new needle up to 4x a day solifenacin 5 mg tablet 5 mg PO DAILY calcitriol 0.25 mcg capsule 0.25 mcg PO DAILY Lantus Solostar U-100 Insulin 100 unit/mL (3 mL) insulin pen 24 unit subcut QPM amlodipine [Norvasc] 5 mg Tablet 5 mg PO QAM Qty: 30 0RF famotidine 20 mg Tablet 20 mg PO DAILY Qty: 30 0RF sodium bicarbonate 650 mg Tablet 650 mg PO BID Qty: 60 0RF Referrals Referrals: She Davis DO [Primary Care Provider] -
--- NOTE | 2022-10-27 23:16 | History & Physical Report ---
Date of Service October 27, 2022 Assessment & Plan (1) Acute hyperkalemia: Plan: K+ was >6.0 at outside lab, but in ER it is 5.4. Given Lokelma 10 mg PO x 1 dose by ER attending. EKG without acute changes (no peaked T waves). - Started Lokelma 10 mg PO daily - Nephrology consulted (2) CKD (chronic kidney disease) stage 4, GFR 15-29 ml/min: Plan: Baseline Cr 2.5 - 2.7. Seems to be at baseline. - Usual home meds - Nephrology as above (3) Diabetes mellitus with neurological manifestations, uncontrolled: Plan: Low A1c on last admission, but not clear how accurate this is with CKD. - Lower home long-acting dose to 20 units as hospital food usually less calorie- dense. - Sliding scale insulin (4) Liver transplant recipient: Plan: In 10/2018 due to PBC. - Continue home tacrolimus (5) Hypertension: Plan: BP is 155/90 in the ER. - Continue home amlodipine (6) DVT prophylaxis: Plan: SCDs, early ambulation and discharge Conditional code -> Patient willing to be intubated and on ventilator for short duration, but does not want CPR/defibrillation. History of Present Illness Primary Care Provider: Seh Davis DO 62yo F w/ hx of OLT in 10/2018 due to PBC who presents with hyperkalemia. Patient has CKD Stage IV and was recently discharged. She was in her normal state of health over the last few days. Per report from the discharging physician, the patient had trouble with follow up with her PCP's office [facility] eling several visits. At some point, her blood was drawn and by report, her K+ was > 6.0. On our lab draws, it was 5.9. Our staff reached out to her and convinced her to go to the ER. In the ER, her K+ is 5.4. Her Cr is 2.7 which is where it was on prior discharge. Nephrology was made aware and felt that she would benefit from admission and further management of her CKD and hyperkalemia. Allergies Allergy/AdvReac Type Severity Reaction Status Date / Time Iodinated Contrast Media Allergy Intermediate Sneezing Verified 10/27/22 22:38 and breaks out into a rash Penicillins Allergy Intermediate Hives Verified 10/27/22 22:38 metformin Allergy Unknown Unknown Verified 10/27/22 22:38 Home Medications Medication Instructions Recorded Confirmed Type lancets 33 gauge (OneTouch Delica #100 ea 08/23/20 10/27/22 Rx Plus Lancet) pen needle, diabetic 32 gauge x #360 ea 04/04/21 10/27/22 Rx 5/32" (BD Ultra-Fine Leilani Pen Needle) insulin glargine 100 unit/mL (3 24 unit subcut QPM 06/09/21 10/27/22 History mL) subcutaneous pen (Lantus Solostar U-100 Insulin) blood sugar diagnostic (OneTouch #100 ea 06/19/21 10/27/22 Rx Verio test strips) tacrolimus 1 mg capsule, 1 mg PO .COMPLEX #270 caps 05/01/22 10/27/22 Rx immediate-release amlodipine 5 mg tablet (Norvasc) 5 mg PO QAM #30 tabs 10/16/22 10/27/22 Rx famotidine 20 mg tablet 20 mg PO DAILY #30 tabs 10/16/22 10/27/22 Rx sodium bicarbonate 650 mg tablet 650 mg PO BID #60 tabs 10/16/22 10/27/22 Rx albuterol sulfate 90 mcg/actuation 2 inh inhalation Q6H PRN shortness 10/23/22 10/27/22 Rx aerosol inhaler of breath or wheezing #8.5 grams calcitriol 0.25 mcg capsule 0.25 mcg PO DAILY 10/23/22 10/27/22 History solifenacin 5 mg tablet 5 mg PO DAILY 10/23/22 10/27/22 History Past Med/Surg History Medical History (Updated 10/27/22 @ 23:26 by Jake Holder MD) Anemia of chronic disease Bilateral foot-drop CKD (chronic kidney disease) stage 4, GFR 15-29 ml/min COPD (chronic obstructive pulmonary disease) Degenerative disc disease, lumbar Diabetic neuropathy Esophageal varices GERD (gastroesophageal reflux disease) Hypertension 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) Lumbar pain with radiation down both legs MGUS (monoclonal gammopathy of unknown significance) Osteoarthritis Osteopenia Peripheral neuropathy Primary biliary cirrhosis Proteinuria Right patella fracture SARS-CoV-2 positive Urinary incontinence, urge Vitamin D deficiency Surgical History History of section X 2 History of colonoscopy History of liver transplant (10/13/18) History of lumbar laminectomy for spinal cord decompression (04/22/21) L3-L5 laminectomy History of tonsillectomy History of tooth extraction History of total abdominal hysterectomy and bilateral salpingo-oophorectomy Liver transplant recipient [facility] 10/13/18 Nasal polyp X 3 REMOVED Family History Unknown Adopted Social History Smoking Status: Never smoker Second Hand Exposure: No; Hx Alcohol Use: No Hx Substance Use: No Preferred Language: Latvian Communication Ability: Effective Visual Impairment: No Limitations Hearing Ability: Hard of Hearing Clinical Medical Transcriptionist Required: No Beliefs That Will Affect Care: None marital status: Current Living Situation: Spouse Current Living Situation Comment: Lives with current occupational status: employed How many Children do You have: 3 Feels Safe at Home: Yes Childhood Exposure to Second-Hand Smoke: No caffeine: Yes during the past year weight has: remained stable Dental Care, Regularly: No Physical Activity Frequency: Daily Seatbelt Use: always Sunscreen Use: No Assistive Devices: None Review of Systems Review of Systems: All systems reviewed & are unremarkable except as noted in HPI & below Physical Exam Constitutional: WD/WN, vitals as above Eyes: EOM intact bilaterally; no conjunctival abnormality ENMT: external ear and nose normal, oropharynx normal Neck: trachea midline, no thyromegaly normal visual inspection Respiratory: normal respiratory effort, lungs clear to auscultation no respiratory distress Cardiovascular: RRR, no murmur, no edema Gastrointestinal (Abdomen): Inspection/Auscultation: abdomen normal to inspection; abdomen not distended Musculoskeletal: no cyanosis or clubbing, extremities motor strength 5/5 Skin: no rashes, warm and dry Neurologic: moves all extremities and awake Psychiatric: Orientation: alert, oriented to person and cooperative Results & Data Results & Data ([facility]) Vital Signs (Past 12 Hours) Vital Signs Temp Pulse Resp BP Pulse Ox O2 Del Method 10/27/22 17:11 36.4 C L 89 20 156/91 H 100 Room Air Code Status & VTE Plan VTE Prophylaxis Plan VTE Prophylaxis will be ordered: Yes PG Care Time/CCT Total # of Minutes Spent Total Time Spent with Patient: Total time spent is greater than 50% in coordination of care (as documented) at patient's floor/unit and/or counseling patient: Coding Level of Care Code INT OBSERVATION CARE 70M LVL 3 Diagnoses Acute hyperkalemia E87.5 CKD (chronic kidney disease) stage 4, GFR 15-29 ml/min N18.4 Diabetes mellitus with neurological manifestations, uncontrolled E11.49; E11.65 Liver transplant recipient Z94.4 Hypertension I10 DVT prophylaxis Z29.9
[2022-10-28] MEDS ORDERED: ACETAMINOPHEN 325 MG TAB PO PRN (02:40)
[2022-10-28] MEDS ORDERED: GLUCOSE 10 TAB/TUBE PO PRN (02:40)
[2022-10-28] MEDS ORDERED: DEXTROSE 50% 50 ML SYRINGE IV PRN (02:40)
[2022-10-28] MEDS ORDERED: GLUCOSE 40% GEL 15 GM TUBE PO PRN (02:40)
[2022-10-28] MEDS ORDERED: ALBUTEROL HFA 8 GM INHALER INH PRN (02:40)
[2022-10-28] MEDS ORDERED: CARBOHYDRATES FOR HYPOGLYCEMIA PO PRN (02:40)
[2022-10-28] MEDS ORDERED: ONDANSETRON INJ 2 MG/ML 2 ML VIAL IV PRN (02:40)
[2022-10-28] MEDS ORDERED: GLUCAGON FOR INJ 1 MG VIAL SQ PRN (02:40)
[2022-10-28 08:42] LABS: Hematocrit (blood only) 21.8 % (34.1-44.9); Hemoglobin 7.4 g/dl (12.0-16.0); Mean Platelet Volume 10.1 fL (9.4-12.3); Platelet Count 87 K/uL (130-400); White Blood Count 2.37 K/ul (4.8-10.8)
--- NOTE | 2022-10-28 08:49 | Nephrology Consultation ---
Date of Consultation October 28, 2022 Assessment & Plan (1) Acute hyperkalemia: * Resolved following Lokelma administration * Discussed importance of low K diet * Will ask dietitian to provide education on low K diet * OK to discharge to home from Nephrology perspective with follow up by primary Studio Musician, Dr. Acosta ([facility]) and local PCP (2) CKD (chronic kidney disease) stage 4, GFR 15-29 ml/min: * Baseline Cr 2.5-2.7. CKD likely on the basis of chronic CNI therapy * Maintain follow up w/ [facility] (Dr. 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 On Tacrolimus therapy History of Present Illness Reason for Consultation: Hyperkalemia, CKD Attending Physician: Carmelina Jacobo MD History of Present Illness Ms. Hendricks is a 62 year old white female who is seen at the request of the hospitalist service for evaluation of hyperkalemia and CKD. Medical records in the EMR were reviewed today and are summarized as follows: Ms. Hendricks resides in [place], [place]. 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 She recovered kidney function after 4 months and has followed w/ Dr. Acosta of [facility]. Her baseline Cr has been 2.5-2.7. Ms. Hendricks reports a diet high in potassium. She has been drinking orange juice to remain healthy during the winter months. Blood work preformed by her PCP revealed K 6.0 and patient was referred to [facility]. Repeat blood work in [facility] revealed K 5.4. Lokelma 10 g po x1 was administered and patient was admitted for cardiac monitoring and follow up PRP in am. 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 (Tacrolimus), AODM, HTN, vitamin D deficiency, COVID + 10/22 Allergies Allergy/AdvReac Type Severity Reaction Status Date / Time Iodinated Contrast Media Allergy Intermediate Sneezing Verified 10/27/22 22:38 and breaks out into a rash Penicillins Allergy Intermediate Hives Verified 10/27/22 22:38 metformin Allergy Unknown Unknown Verified 10/27/22 22:38 Home Medications Medication Instructions Recorded Confirmed Type lancets 33 gauge (OneTouch Delica #100 ea 10/23/20 12/27/22 Rx Plus Lancet) pen needle, diabetic 32 gauge x #360 ea 04/04/21 10/27/22 Rx 32" (BD Ultra-Fine Leilani Pen Needle) insulin glargine 100 unit/mL (3 24 unit subcut QPM 06/09/21 10/27/22 History mL) subcutaneous pen (Lantus Solostar U-100 Insulin) blood sugar diagnostic (OneTouch #100 ea 06/19/21 10/27/22 Rx Verio test strips) amlodipine 5 mg tablet (Norvasc) 5 mg PO QAM #30 tabs 10/16/22 10/27/22 Rx famotidine 20 mg tablet 20 mg PO DAILY #30 tabs 10/16/22 10/27/22 Rx sodium bicarbonate 650 mg tablet 650 mg PO BID #60 tabs 10/16/22 10/27/22 Rx albuterol sulfate 90 mcg/actuation 2 inh inhalation Q6H PRN shortness 10/23/22 10/27/22 Rx aerosol inhaler of breath or wheezing #8.5 grams calcitriol 0.25 mcg capsule 0.25 mcg PO DAILY 10/23/22 10/27/22 History solifenacin 5 mg tablet 5 mg PO DAILY 10/23/22 10/27/22 History tacrolimus 1 mg capsule, 1 mg PO .COMPLEX #270 caps 10/28/22 Rx immediate-release Patient History Medical History Anemia of chronic disease Bilateral foot-drop CKD (chronic kidney disease) stage 4, GFR 15-29 ml/min COPD (chronic obstructive pulmonary disease) Degenerative disc disease, lumbar Diabetic neuropathy Esophageal varices GERD (gastroesophageal reflux disease) Hypertension 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) Lumbar pain with radiation down both legs MGUS (monoclonal gammopathy of unknown significance) Osteoarthritis Osteopenia Peripheral neuropathy Primary biliary cirrhosis Proteinuria Right patella fracture SARS-CoV-2 positive Urinary incontinence, urge Vitamin D deficiency Surgical History History of section X 2 History of colonoscopy History of liver transplant (10/13/18) History of lumbar laminectomy for spinal cord decompression (04/22/21) L3-L5 laminectomy History of tonsillectomy History of tooth extraction History of total abdominal hysterectomy and bilateral salpingo-oophorectomy Liver transplant recipient [facility] 10/13/18 Nasal polyp X 3 REMOVED Family History Unknown Adopted Social History Smoking Status: Never smoker Second Hand Exposure: No; Hx Alcohol Use: No Hx Substance Use: No Preferred Language: Amharic Communication Ability: Effective Visual Impairment: No Limitations Hearing Ability: Hard of Hearing Tree Pruner Required: No Beliefs That Will Affect Care: None marital status: Current Living Situation: Spouse and Family Current Living Situation Comment: Lives at home with , son, and daughter current occupational status: employed How many Children do You have: 3 Feels Safe at Home: Yes Childhood Exposure to Second-Hand Smoke: No caffeine: Yes during the past year weight has: remained stable Dental Care, Regularly: No Physical Activity Frequency: Daily Seatbelt Use: always Sunscreen Use: No Assistive Devices: Brace/Splint/Immobilizer and Glasses Review of Systems Constitutional: no fever Eyes: no problem reported Ear, Nose, Mouth, Throat: no problem reported Respiratory: no dyspnea Cardiovascular: no chest pain Gastrointestinal: no abdominal pain Genitourinary: no dysuria Physical Exam Constitutional: not in distress Eyes: PERRL, conjunctivae normal, anicteric sclerae ENMT: external ear and nose normal, oropharynx normal Neck: trachea midline, no thyromegaly Respiratory: normal respiratory effort, lungs clear to auscultation Cardiovascular: RRR, no murmur, no edema Gastrointestinal (Abdomen): normal bowel sounds, soft, nontender, no hepatosplenomegaly Skin: no rashes, warm and dry Results & Data ([facility]) Vital Signs (Past 12 Hours) Vital Signs Temp Pulse Pulse Resp BP BP Pulse Ox 10/28/22 07:39 36.8 C 80 16 128/71 97 10/28/22 02:15 37.1 C 91 H 18 169/85 H 96 10/28/22 01:51 81 18 175/98 H 97 O2 Del Method 10/28/22 07:39 Room Air 10/28/22 02:15 Room Air 10/28/22 01:51 Room Air Laboratory Results Laboratory Tests Laboratory Tests 10/28/22 08:19 WBC 2.37 L Hgb 7.4 L Hct 21.8 L Plt Count 87 L 09/30/18 10/28/22 18:15 08:19 Sodium 142 Potassium 4.5 Chloride 113 H Carbon Dioxide 24 BUN 47 H Creatinine 2.61 H Glucose 94 Urine Color Dark Yellow Urine Appearance Cloudy H Urine pH 5.0 Ur Specific [place] 1.013 Urine Protein Negative Urine Glucose (UA) Negative Urine Blood 3+ H Urine Nitrite Negative Urine WBC (Auto) 10-30 H Urine RBC (Auto) >30 H U Epithel Cells (Auto) 10-20 H Urine Bacteria (Auto) Negative PG Care Time/CCT Total # of Minutes Spent Total Time Spent with Patient: Total time spent is greater than 50% in coordination of care (as documented) at patient's floor/unit and/or counseling patient: Coding Level of Care Code 90852 Inpt Consult Level 5 Diagnoses Acute hyperkalemia E87.5 CKD (chronic kidney disease) stage 4, GFR 15-29 ml/min N18.4 Liver transplant recipient Z94.4
[2022-10-28] MEDS: INSULIN ASPART PER UNIT SC SCH ×2 (08:51→13:30)
[2022-10-28] MEDS ORDERED: SODIUM BICARBONATE 650 MG TAB PO SCH (09:00)
[2022-10-28] MEDS ORDERED: FAMOTIDINE 20 MG TAB PO SCH (09:00)
[2022-10-28] MEDS ORDERED: TACROLIMUS 1 MG CAP PO SCH ×2 (09:00→21:00)
[2022-10-28] MEDS ORDERED: CALCITRIOL 0.25 MCG CAPSULE PO SCH (09:00)
[2022-10-28] MEDS ORDERED: amLODIPine BESYLATE 5 MG TAB PO SCH (09:00)
[2022-10-28 09:07] LABS: Mean Corpuscular Hemoglobin 30.7 pg (25.0-34.0); Mean Corpuscular Hgb Conc 33.9 g/dL (32.0-36.0); Mean Corpuscular Volume 90.5 fL (80.0-100.0); RDW Coefficient of Variation 14.6 % (11.5-14.5); RDW Standard Deviation 47.7 fL (36.4-46.3); Red Blood Count 2.41 M/uL (3.93-5.22)
[2022-10-28 09:27] LABS: Calcium 7.9 mg/dl (8.5-10.1); Creatinine Clr Calc Pharmacy 22.2 ml/min; Est GFR (African American) 22.2 ml/min; Est GFR (Non-African American) 19.2 ml/min; Potassium 4.5 mmol/L (3.5-5.1)
--- NOTE | 2022-10-28 09:42 | Electrocardiogram Report ---
Test Reason : Blood Pressure : / mmHG Vent. Rate : 098 BPM Atrial Rate : 098 BPM P-R Int : 130 ms QRS Dur : 080 ms QT Int : 368 ms P-R-T Axes : 061 -23 044 degrees QTc Int : 469 ms Normal sinus rhythm Possible Left atrial enlargement Low voltage QRS Possible Lateral infarct (cited on or before 27-OCT-2022) Abnormal ECG When compared with ECG of 11-OCT-2022 20:29, Nonspecific T wave abnormality, worse in Anterior leads Confirmed by Johnny Obrien ([id number]) on 10/28/2022 9:42:06 AM Referred By: She Davis Confirmed By:Jose Obrien
[2022-10-28] MEDS ORDERED: SODIUM ZIRCONIUM CYCLOSILICATE 10 GM PACKET PO SCH (11:00)
--- NOTE | 2022-10-28 12:12 | Discharge Summary ---
Date of Service October 28, 2022 Admission HPI Per Admitting Provider 62yo F w/ hx of OLT in 10/2018 due to PBC who presents with hyperkalemia. Patient has CKD Stage IV and was recently discharged. She was in her normal state of health over the last few days. Per report from the discharging physician, the patient had trouble with follow up with her PCP's office canceling several visits. At some point, her blood was drawn and by report, her K+ was > 6.0. On our lab draws, it was 5.9. Our staff reached out to her and convinced her to go to the ER. In the ER, her K+ is 5.4. Her Cr is 2.7 which is where it was on prior discharge. Nephrology was made aware and felt that she would benefit from admission and further management of her CKD and hyperkalemia. Principal Diagnosis Hyperkalemia Discharge Exam Vitals reviewed Gen: [AAOx3, NAD] HEENT: [anicteric sclerae, EOMI] CV: [RRR no mgr nl S1S2] Pulm: [CTAB no wcr] Abd: [+BS soft NT ND no masses or hernias] Ext: [2+ nonpitting edema legs bilat] Skin: [no rashes, warm/dry] Discharge Data Allergies Allergy/AdvReac Type Severity Reaction Status Date / Time Iodinated Contrast Media Allergy Intermediate Sneezing Verified 10/27/22 22:38 and breaks out into a rash Penicillins Allergy Intermediate Hives Verified 10/27/22 22:38 metformin Allergy Unknown Unknown Verified 10/27/22 22:38 Consultations 10/27/22 22:18 ED Decision to Admit Stat 10/28/22 02:40 Consult Nephrology Routine Hospital Course (1) Acute hyperkalemia: K+ was >6.0 at outside lab, but in ER it is 5.8. Given Lokelma 10 mg PO x 1 dose by ER attending. EKG without acute changes (no peaked T waves). K+ improved down to 4.5 by the next day and lace finisher improved to 2.6 Pt admits she was drinking a lot of orange juice at home, is not aware of a low potassium diet. Dietary counseled pt on low potassium diet continue sodium bicarb tabs bid as before she is making urine - Nephrology consult appreciated stable for dc to home, check BMP on Wednesday with results to PCP and Nephrology keep appt with Nephro for early Nov (2) CKD (chronic kidney disease) stage 4, GFR 15-29 ml/min: Baseline Cr 2.5 - 2.7. Seems to be at baseline. - Usual home meds - Nephrology as above with nephrotic syndrome peripheral edema--> advised compression stockings (3) Diabetes mellitus with neurological manifestations, uncontrolled: Low A1c on last admission, but not clear how accurate this is with CKD. - Lower home long-acting dose to 20 units as hospital food usually less calorie- dense. - Sliding scale insulin (4) Liver transplant recipient: In 10/2018 due to PBC. - Continue home tacrolimus needs to have tacrolimus levels checked in the next few weeks since starting on amlodipine can cause changes in tacrolimus levels (5) Hypertension: BP stable - Continue home amlodipine (6) DVT prophylaxis: SCDs, early ambulation and discharge Nausea-had nausea with eating our scrambled eggs this AM. Given Zofran. She has noticed lately always has nausea and then iarrhea with eating eggs--> may be a food allergy. Advised to not eat eggs. Conditional code -> Patient willing to be intubated and on ventilator for short duration, but does not want CPR/defibrillation. Dispo-stable for dc to home Total Time Total Time Spent Total Time Spent (In Minutes): 35 min Discharge Plan Discharge Items Patient Disposition: Home - Self-Care Reason For Visit: HYPERKALEMIA Discharge Diagnosis: Hyperkalemia, CKD stage 4, Anemia Condition on Discharge: Fair Activity: Resume your previous activity Non-emergency contact: Primary Care Provider and Die Hardener Call non-emergency contact if: you have any medication questions and your symptoms worsen Follow-up/Referrals: She Davis, [Primary Care Provider] - (Please follow up within 1 week.) Diet: Carb Consistent or DM2 and Low Potassium (2gm) Addtl Attending Provider Instructions: You were admitted with high potassium levels due to your kidney failure. This improved with giving you a medication called Alex. It is important for you to eat a low potassium diet. Have blood work done on Wednesday to check your kidney function and potassium levels. Keep your follow up appointment as previously scheduled with your Die Hardener in [place]. For your anemia, you will need to keep your appointment as scheduled on Nov 20. Pending Studies at Discharge: No Stand-Alone Forms: My [facility] Aviate, Smoking Cessation Medications and DC Order Prescriptions: Continued (DME) lancets [OneTouch Delica Plus Lancet] 33 gauge misc See Rx Instructions .ROUTE .MEDSUPPLY Qty: 100 3RF Rx Instructions: Test 3 times daily (DME) OneTouch Verio test strips Strip See Rx Instructions .ROUTE .MEDSUPPLY Qty: 100 3RF Rx Instructions: Test 3 times daily albuterol sulfate 90 mcg/actuation HFA aerosol inhaler 2 inh inhalation Q6H PRN (Reason: shortness of breath or wheezing) Qty: 8.5 0RF tacrolimus 1 mg capsule 1 mg PO .COMPLEX Qty: 270 1RF Rx Instructions: 1 mg PO 1 mg PO; TAKE 2 CAPS IN THE MORNING AND 1 CAPS AT NIGHT; (DME) pen needle, diabetic [BD Ultra-Fine Leilani Pen Needle] 32 gauge x 5/32" needle See Rx Instructions .ROUTE .MEDSUPPLY Qty: 360 3RF Rx Instructions: Inject with new needle up to 4x a day solifenacin 5 mg tablet 5 mg PO DAILY calcitriol 0.25 mcg capsule 0.25 mcg PO DAILY Lantus Solostar U-100 Insulin 100 unit/mL (3 mL) insulin pen 24 unit subcut QPM amlodipine [Norvasc] 5 mg Tablet 5 mg PO QAM Qty: 30 0RF famotidine 20 mg Tablet 20 mg PO DAILY Qty: 30 0RF sodium bicarbonate 650 mg Tablet 650 mg PO BID Qty: 60 0RF Discharge Orders: Discharge Order (Routine); Ordered 10/28/22 Ordered By: Carmelina Jacobo Admission Data Admit Date/Time: 10/27/22 23:00 Attending Provider: Carmelina Jacobo Admit Provider: Jake Holder Primary Care Provider: She Davis Other Providers: Jake Holder ; Mathew Sauer Coding Level of Care Code 09704 OBS Care - Discharge Diagnoses Acute hyperkalemia E87.5 CKD (chronic kidney disease) stage 4, GFR 15-29 ml/min N18.4 Diabetes mellitus with neurological manifestations, uncontrolled E11.49; E11.65 Liver transplant recipient Z94.4 Hypertension I10 DVT prophylaxis Z29.9
[2022-10-28] MEDS ORDERED: LANTUS PER UNIT CHARGE SQ SCH (21:00)
== END 2022-10-28 14:15 | disposition home or self-care (01) ==
LOC: ED 17:11 → 3N 17:11 → SUATTDRO 23:00 → 3N 10-28 01:51
DX: D64.9 Anemia, unspecified; E11.65 Type 2 diabetes mellitus with hyperglycemia; E87.5 Hyperkalemia; E11.22 Type 2 diabetes mellitus with diabetic chronic kidney disease; D69.6 Thrombocytopenia, unspecified; I12.9 Hypertensive chronic kidney disease with stage 1 through stage 4 chronic kidney disease, or unspecified chronic kidney disease; E11.42 Type 2 diabetes mellitus with diabetic polyneuropathy; Z91.041 Radiographic dye allergy status; Z88.0 Allergy status to penicillin; N18.4 Chronic kidney disease, stage 4 (severe); Z94.4 Liver transplant status; Z79.84 Long term (current) use of oral hypoglycemic drugs

== ENCOUNTER 2022-10-31 12:32 | Inpatient (IN) ==
--- NOTE | 2022-10-31 12:43 | Emergency Department Note ---
Impression & Plan Acute hypoxemic respiratory failure, Influenza A, CKD (chronic kidney disease) stage 4, GFR 15-29 ml/min ED Provider Note NAME: JULIOCESAR LU AGE: 62 SEX: F : 1960 ARRIVES VIA: Ambulance INFORMANT: Patient, ED PROVIDER(S): Matt Tavera MD Chief Complaint: Shortness of breath HPI: patient presents due to concern for acute on chronic shortness of breath which is worsened in the last 1 to 2 days. The patient has had cough. The patient's daughter recently was diagnosed with flu A. The patient did not receive flu shot this year. Patient is have a known history of liver transplant and is on tacrolimus. Patient did have fever upon presentation 31. The patient sats in triage were 99 1% the patient was placed on supplemental oxygen Due to the patient's increasing dyspnea. Patient denies any nausea or vomiting but does have midsternal chest pain nonradiating. Describes it as achy. It is worse with coughing. The patient's not take anything for symptoms at home. Patient did not take her morning medications but did take her medications last evening. Patient states that she has been following a low potassium diet ever since she was discharged. Patient denies any smoking history. The patient does have some chronic lower extremity swelling which is relatively unchanged from prior. Patient denies any history of DVT or PE. I did review the patient's most recent discharge summary from [address] Jacobo. The patient had been admitted back on summer 2019 first for hyperk alemia. Patient does have a known history of CKD stage IV patient's potassium was greater than 6 in outside lab but in the ER was 5.8. The patient did receive Lokelma improved. Patient reportedly had been drinking additional or she is at home. She is not aware of a low potassium diet. Patient does have a known history of liver transplant and is on tacrolimus. This is secondary to primary biliary cirrhosis. Patient's echo from 2018 shows normal LV chamber size and wall thickness with normal LV systolic function EF of 60-65%. Grade 2 diastolic dysfunction with mild mitral regurg and mild tricuspid regurg. MDM: Patient was seen due to concern for fever a known history of liver transplant. Blood work is obtained sepsis orders were initiated patient was ordered 500 cc of fluids as the patient does have chronic lower extremity swelling he does have a history of CKD. Patient was ordered over from have flu and RSV swabs sepsis protocols empiric cefepime. I did speak with pharmacy about coverage given her known history of liver transplant. Patient was ordered BiPAP initially did help with the patient's work of breathing. Upon reassessment the patient did have improvement in her symptoms. The patient has leukopenia anemia and thrombocytopenia. Patient's hemoglobin is improved compared to prior patient's VBG does not show any hypercarbia. Patient's kidney function with a creatinine 2.5 which is about baseline. Mild hypocalcemia and hypomagnesemia. Patient does have elevation in troponin 21 and BNP at 737. Troponin likely elevated 2/2 demand. I did speak w/ the on-call hospitalist Dr. Thompson and the patient was admitted to the medicine service. Patient is positive for flu and COVID. Patient was ordered dexamethasone IV 6. Critical Care: I have personally spent 82 minutes of critical care time in direct management of this patient. This includes bedside care, interpretation of diagnostic studies, and testing, discussion with consultants, patient, and family members, and other require inpatient management activities. This 82 minutes is in excess of all separately billable procedures. ROS: See HPI for pertinent positives and negatives. A total of 10 systems were reviewed and otherwise negative. Past medical history: See below Surgical history: See below Social history: See below Physical Exam: GENERAL: Mild distress, wearing a mask, nasal cannula in place EYE EXAM: Normal conjunctiva. PERRL, no anisocoria and EOM's grossly intact w/o pain. NECK: Supple, no nuchal rigidity, no adenopathy, non-tender. No signs of meningismus. FROM of the neck with good chin to chest and neck extension. No stridor. LUNGS: Mild to moderate wheezes noted throughout. Normal chest wall mechanics. HEART: Tachycardic and regular, no MRG. ABDOMEN: Abdomen soft, non-tender, normo-active bowel sounds, no masses, no rebound or guarding. BACK: No CVA TTP. SKIN: No rashes and no bruising. UPPER EXTREMITIES: Upper extremities are grossly normal. LOWER EXTREMITIES: Grossly normal, scant pretibial edema without any calf pain asymmetry or erythema. NEURO EXAM: A&O x3, cranial nerves II-XII grossly intact, normal speech, moves all 4 extremities. Differential diagnoses: Reactive airway disease, pneumonia, pneumothorax, COPD, CHF, infections, cardiac ischemia, pulmonary embolism, musculoskeletal, gastrointestinal, as well as other pathologies. Course: Patient was seen and evaluated the bedside. Full history physical exam was performed. EKG interpreted by me Sinus tachycardia, rate of 108, normal intervals, left axis deviation no obvious ST elevations Imaging Studies: See Below Cardiac monitoring: An order was placed for continuous cardiac monitoring. The monitor shows a rate of 102 with tachycardic and regular rhythm. Past Med/Surg History Medical History Anemia of chronic disease Bilateral foot-drop CKD (chronic kidney disease) stage 4, GFR 15-29 ml/min COPD (chronic obstructive pulmonary disease) Degenerative disc disease, lumbar Diabetic neuropathy Esophageal varices GERD (gastroesophageal reflux disease) Hypertension 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) Lumbar pain with radiation down both legs MGUS (monoclonal gammopathy of unknown significance) Osteoarthritis Osteopenia Peripheral neuropathy Primary biliary cirrhosis Proteinuria Right patella fracture SARS-CoV-2 positive Urinary incontinence, urge Vitamin D deficiency Surgical History History of section X 2 History of colonoscopy History of liver transplant (10/13/18) History of lumbar laminectomy for spinal cord decompression (04/22/21) L3-L5 laminectomy History of tonsillectomy History of tooth extraction History of total abdominal hysterectomy and bilateral salpingo-oophorectomy Liver transplant recipient [facility] 10/13/18 Nasal polyp X 3 REMOVED Family History Unknown Adopted Social History Smoking Status: Never smoker Second Hand Exposure: No; Hx Alcohol Use: No Hx Substance Use: No Preferred Language: Italian Communication Ability: Effective Visual Impairment: No Limitations Hearing Ability: Hard of Hearing 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 Beliefs That Will Affect Care: None marital status: Current Living Situation: Spouse and Family Current Living Situation Comment: Lives at home with , son, and daughter current occupational status: employed How many Children do You have: 3 Feels Safe at Home: Yes Childhood Exposure to Second-Hand Smoke: No caffeine: Yes during the past year weight has: remained stable Dental Care, Regularly: No Physical Activity Frequency: Daily Seatbelt Use: always Sunscreen Use: No Assistive Devices: Brace/Splint/Immobilizer and Glasses Allergies Allergies Allergy/AdvReac Type Severity Reaction Status Date / Time Iodinated Contrast Media Allergy Intermediate Sneezing Verified 10/31/22 13:36 and breaks out into a rash Penicillins Allergy Intermediate Hives Verified 10/31/22 13:36 metformin Allergy Unknown Unknown Verified 10/31/22 13:36 Home Meds Home Medications Medication Instructions Recorded Confirmed insulin glargine 100 unit/mL (3 24 unit subcut QPM 06/09/21 10/31/22 mL) subcutaneous pen (Lantus Solostar U-100 Insulin) calcitriol 0.25 mcg capsule 0.25 mcg PO DAILY 10/23/22 10/31/22 solifenacin 5 mg tablet 5 mg PO DAILY 10/23/22 10/31/22 Previous Rx's Medication Instructions Recorded lancets 33 gauge (OneTouch Delica #100 ea 08/23/20 Plus Lancet) pen needle, diabetic 32 gauge x #360 ea 04/04/21 5/32" (BD Ultra-Fine Leilani Pen Needle) blood sugar diagnostic (OneTouch #100 ea 06/19/21 Verio test strips) amlodipine 5 mg tablet (Norvasc) 5 mg PO QAM #30 tabs 10/16/22 famotidine 20 mg tablet 20 mg PO DAILY #30 tabs 10/16/22 sodium bicarbonate 650 mg tablet 650 mg PO BID #60 tabs 10/16/22 albuterol sulfate 90 mcg/actuation 2 inh inhalation Q6H PRN shortness 10/23/22 aerosol inhaler of breath or wheezing #8.5 grams tacrolimus 1 mg capsule, 1 mg PO .COMPLEX #270 caps 10/28/22 immediate-release Results & Data (ED) Vital Signs Vital Signs - 24 hr 10/31/22 12:20 10/31/22 12:20 10/31/22 12:20 Temperature 38.1 C H Temperature Source Oral Pulse Rate 105 H Pulse Rate [Finger] Pulse Rate [Right Finger] Pulse Rate from SpO2 Sensor Pulse Rhythm Regular Pulse Rhythm [Finger] Pulse Rhythm [Right Finger] Pulse Strength Normal Pulse Strength [Finger] Pulse Strength [Right Finger] Respiratory Rate 24 Respiratory Effort / Characteristics Nasal Flaring Pursed Lip Short of Breath SOB on Exertion Labored Pursed Lip SOB on Exertion Respiratory Depth Retractive Deep Respiratory Pattern Rapid/Deep Regular Blood Pressure Blood Pressure [Left Arm] Blood Pressure Mean Blood Pressure Mean [Left Arm] Blood Pressure Position [Left Arm] Pulse Oximetry 98 99 Oxygen Delivery Method Nasal Cannula Nasal Cannula Nasal Cannula Oxygen Flow Rate 2 2 2 Fraction of Inspired Oxygen Sepsis Recent Fever Within 48 Hours Yes Sepsis New/Unexplained Change in Mental Status No Sepsis Action Taken by Nursing Physician Notified 10/31/22 13:03 10/31/22 13:11 10/31/22 12:56 Temperature Temperature Source Pulse Rate 105 H Pulse Rate [Finger] Pulse Rate [Right Finger] 108 H Pulse Rate from SpO2 Sensor Pulse Rhythm Pulse Rhythm [Finger] Pulse Rhythm [Right Finger] Pulse Strength Pulse Strength [Finger] Pulse Strength [Right Finger] Respiratory Rate 28 H 28 H Respiratory Effort / Characteristics Spontaneous Spontaneous Respiratory Depth Respiratory Pattern Tachypnea Blood Pressure Blood Pressure [Left Arm] Blood Pressure Mean Blood Pressure Mean [Left Arm] Blood Pressure Position [Left Arm] Pulse Oximetry 100 97 94 Oxygen Delivery Method BiPAP BiPAP Oxygen Flow Rate Fraction of Inspired Oxygen 21 21 Sepsis Recent Fever Within 48 Hours Sepsis New/Unexplained Change in Mental Status Sepsis Action Taken by Nursing 10/31/22 12:41 10/31/22 13:00 10/31/22 13:01 Temperature Temperature Source Pulse Rate 101 H 96 H Pulse Rate [Finger] Pulse Rate [Right Finger] Pulse Rate from SpO2 Sensor 109 H 106 H Pulse Rhythm Pulse Rhythm [Finger] Pulse Rhythm [Right Finger] Pulse Strength Pulse Strength [Finger] Pulse Strength [Right Finger] Respiratory Rate 27 H 23 Respiratory Effort / Characteristics Respiratory Depth Respiratory Pattern Blood Pressure 219/81 H Blood Pressure [Left Arm] Blood Pressure Mean 127 Blood Pressure Mean [Left Arm] Blood Pressure Position [Left Arm] Pulse Oximetry 100 99 Oxygen Delivery Method Oxygen Flow Rate Fraction of Inspired Oxygen Sepsis Recent Fever Within 48 Hours Sepsis New/Unexplained Change in Mental Status Sepsis Action Taken by Nursing 10/31/22 13:01 10/31/22 13:30 10/31/22 13:48 Temperature Temperature Source Pulse Rate 105 H 106 H Pulse Rate [Finger] Pulse Rate [Right Finger] Pulse Rate from SpO2 Sensor 105 H Pulse Rhythm Pulse Rhythm [Finger] Pulse Rhythm [Right Finger] Pulse Strength Pulse Strength [Finger] Pulse Strength [Right Finger] Respiratory Rate 37 H 34 H Respiratory Effort / Characteristics Respiratory Depth Respiratory Pattern Blood Pressure 179/91 H Blood Pressure [Left Arm] Blood Pressure Mean 120 Blood Pressure Mean [Left Arm] Blood Pressure Position [Left Arm] Pulse Oximetry 98 Oxygen Delivery Method Oxygen Flow Rate Fraction of Inspired Oxygen Sepsis Recent Fever Within 48 Hours Sepsis New/Unexplained Change in Mental Status Sepsis Action Taken by Nursing 10/31/22 13:48 10/31/22 14:00 10/31/22 14:00 Temperature Temperature Source Pulse Rate 103 H 101 H Pulse Rate [Finger] Pulse Rate [Right Finger] Pulse Rate from SpO2 Sensor 103 H 100 H Pulse Rhythm Pulse Rhythm [Finger] Pulse Rhythm [Right Finger] Pulse Strength Pulse Strength [Finger] Pulse Strength [Right Finger] Respiratory Rate 32 H 32 H Respiratory Effort / Characteristics Respiratory Depth Respiratory Pattern Blood Pressure 178/73 H Blood Pressure [Left Arm] Blood Pressure Mean 108 Blood Pressure Mean [Left Arm] Blood Pressure Position [Left Arm] Pulse Oximetry 96 95 Oxygen Delivery Method Oxygen Flow Rate Fraction of Inspired Oxygen Sepsis Recent Fever Within 48 Hours Sepsis New/Unexplained Change in Mental Status Sepsis Action Taken by Nursing 10/31/22 14:30 10/31/22 14:30 10/31/22 14:50 Temperature Temperature Source Pulse Rate 96 H 93 H Pulse Rate [Finger] Pulse Rate [Right Finger] Pulse Rate from SpO2 Sensor 96 H Pulse Rhythm Pulse Rhythm [Finger] Pulse Rhythm [Right Finger] Pulse Strength Pulse Strength [Finger] Pulse Strength [Right Finger] Respiratory Rate 27 H 28 H Respiratory Effort / Characteristics Spontaneous Respiratory Depth Respiratory Pattern Tachypnea Blood Pressure 156/71 H Blood Pressure [Left Arm] Blood Pressure Mean 99 Blood Pressure Mean [Left Arm] Blood Pressure Position [Left Arm] Pulse Oximetry 95 95 Oxygen Delivery Method Oxygen Flow Rate Fraction of Inspired Oxygen 21 Sepsis Recent Fever Within 48 Hours Sepsis New/Unexplained Change in Mental Status Sepsis Action Taken by Nursing 10/31/22 15:00 10/31/22 15:01 10/31/22 15:01 Temperature Temperature Source Pulse Rate 94 H 92 H Pulse Rate [Finger] Pulse Rate [Right Finger] Pulse Rate from SpO2 Sensor 94 H 94 H Pulse Rhythm Pulse Rhythm [Finger] Pulse Rhythm [Right Finger] Pulse Strength Pulse Strength [Finger] Pulse Strength [Right Finger] Respiratory Rate 27 H 26 H Respiratory Effort / Characteristics Respiratory Depth Respiratory Pattern Blood Pressure 146/66 H Blood Pressure [Left Arm] Blood Pressure Mean 92 Blood Pressure Mean [Left Arm] Blood Pressure Position [Left Arm] Pulse Oximetry 93 93 Oxygen Delivery Method Oxygen Flow Rate Fraction of Inspired Oxygen Sepsis Recent Fever Within 48 Hours Sepsis New/Unexplained Change in Mental Status Sepsis Action Taken by Nursing 10/31/22 15:30 10/31/22 15:30 10/31/22 16:00 Temperature Temperature Source Pulse Rate 89 Pulse Rate [Finger] Pulse Rate [Right Finger] Pulse Rate from SpO2 Sensor 89 Pulse Rhythm Pulse Rhythm [Finger] Pulse Rhythm [Right Finger] Pulse Strength Pulse Strength [Finger] Pulse Strength [Right Finger] Respiratory Rate 31 H Respiratory Effort / Characteristics Respiratory Depth Respiratory Pattern Blood Pressure 145/63 H 155/60 H Blood Pressure [Left Arm] Blood Pressure Mean 90 91 Blood Pressure Mean [Left Arm] Blood Pressure Position [Left Arm] Pulse Oximetry 92 Oxygen Delivery Method Oxygen Flow Rate Fraction of Inspired Oxygen Sepsis Recent Fever Within 48 Hours Sepsis New/Unexplained Change in Mental Status Sepsis Action Taken by Nursing 10/31/22 16:00 10/31/22 16:30 10/31/22 16:30 Temperature Temperature Source Pulse Rate 89 86 Pulse Rate [Finger] Pulse Rate [Right Finger] Pulse Rate from SpO2 Sensor 89 87 Pulse Rhythm Pulse Rhythm [Finger] Pulse Rhythm [Right Finger] Pulse Strength Pulse Strength [Finger] Pulse Strength [Right Finger] Respiratory Rate 22 30 H Respiratory Effort / Characteristics Respiratory Depth Respiratory Pattern Blood Pressure 150/63 H Blood Pressure [Left Arm] Blood Pressure Mean 92 Blood Pressure Mean [Left Arm] Blood Pressure Position [Left Arm] Pulse Oximetry 96 96 Oxygen Delivery Method Oxygen Flow Rate Fraction of Inspired Oxygen Sepsis Recent Fever Within 48 Hours Sepsis New/Unexplained Change in Mental Status Sepsis Action Taken by Nursing 10/31/22 17:00 10/31/22 17:00 10/31/22 17:30 Temperature Temperature Source Pulse Rate 84 Pulse Rate [Finger] Pulse Rate [Right Finger] Pulse Rate from SpO2 Sensor 84 Pulse Rhythm Pulse Rhythm [Finger] Pulse Rhythm [Right Finger] Pulse Strength Pulse Strength [Finger] Pulse Strength [Right Finger] Respiratory Rate 29 H Respiratory Effort / Characteristics Respiratory Depth Respiratory Pattern Blood Pressure 163/67 H 168/74 H Blood Pressure [Left Arm] Blood Pressure Mean 99 105 Blood Pressure Mean [Left Arm] Blood Pressure Position [Left Arm] Pulse Oximetry 92 Oxygen Delivery Method Oxygen Flow Rate Fraction of Inspired Oxygen Sepsis Recent Fever Within 48 Hours Sepsis New/Unexplained Change in Mental Status Sepsis Action Taken by Nursing 10/31/22 17:30 10/31/22 18:00 10/31/22 18:07 Temperature 36.8 C Temperature Source Oral Pulse Rate 86 Pulse Rate [Finger] 83 Pulse Rate [Right Finger] 84 Pulse Rate from SpO2 Sensor 86 Pulse Rhythm Pulse Rhythm [Finger] Regular Pulse Rhythm [Right Finger] Regular Pulse Strength Pulse Strength [Finger] Normal Pulse Strength [Right Finger] Normal Respiratory Rate 22 20 Respiratory Effort / Characteristics Non-Labored Respiratory Depth Normal Respiratory Pattern Regular Blood Pressure Blood Pressure [Left Arm] 174/79 H Blood Pressure Mean Blood Pressure Mean [Left Arm] 110 Blood Pressure Position [Left Arm] Lying Pulse Oximetry 92 94 Oxygen Delivery Method Room Air Oxygen Flow Rate Fraction of Inspired Oxygen Sepsis Recent Fever Within 48 Hours Sepsis New/Unexplained Change in Mental Status Sepsis Action Taken by Nursing 10/31/22 18:00 10/31/22 18:00 10/31/22 18:00 Temperature Temperature Source Pulse Rate 85 Pulse Rate [Finger] Pulse Rate [Right Finger] Pulse Rate from SpO2 Sensor 84 Pulse Rhythm Pulse Rhythm [Finger] Pulse Rhythm [Right Finger] Pulse Strength Pulse Strength [Finger] Pulse Strength [Right Finger] Respiratory Rate 25 H Respiratory Effort / Characteristics Respiratory Depth Respiratory Pattern Blood Pressure 174/79 H Blood Pressure [Left Arm] Blood Pressure Mean 110 Blood Pressure Mean [Left Arm] Blood Pressure Position [Left Arm] Pulse Oximetry 98 78 L Oxygen Delivery Method Nasal Cannula Oxygen Flow Rate 2 Fraction of Inspired Oxygen Sepsis Recent Fever Within 48 Hours Sepsis New/Unexplained Change in Mental Status Sepsis Action Taken by Intermediate Medications Current Medication List: was personally reviewed by me Laboratory Data Attestation: I reviewed the patient's lab results. Result diagrams: 10/31/22 13:22 10/31/22 13:22 Lab Results 10/31/22 10/31/22 10/31/22 Range/Units 13:22 13:22 13:22 WBC 2.05 L (4.8-10.8) K/ul RBC 2.70 L (3.93-5.22) M/uL Hgb 8.3 L (12.0-16.0) g/dl Hct 24.8 L (34.1-44.9) % MCV 91.9 (80.0-100.0) fL MCH 30.7 (25.0-34.0) pg MCHC 33.5 (32.0-36.0) g/dL RDW Std Deviation 49.7 H (36.4-46.3) fL RDW Coeff of Paty 14.8 H (11.5-14.5) % Plt Count 88 L (130-400) K/uL MPV 10.8 (9.4-12.3) fL Immature Gran % (Auto) 8.8 % Neut % (Auto) 69.2 % Lymph % (Auto) 9.8 % Bland % (Auto) 11.7 % Eos % (Auto) 0.0 % Baso % (Auto) 0.5 % Neut # (Auto) 1.42 (1.4-6.5) K/uL Lymph # (Auto) 0.20 L (1.2-3.4) K/uL Bland # (Auto) 0.24 (0.24-0.82) K/uL Eos # (Auto) 0.00 (0-0.50) K/uL Baso # (Auto) 0.01 (0-0.2) K/uL Immature Gran # (Auto) 0.18 H (0.00-0.02) K/uL Acanthocytes (Spur) 1+ PT 12.0 (9.0-12.0) Seconds INR 1.1 (0.9-1.1) APTT 26.9 (21.0-31.0) Seconds PTT Ratio 1.0 VBG pH (7.36-7.41) VBG pCO2 (38-50) mmHg VBG pO2 mmHg VBG HCO3 mmol/L VBG O2 Saturation % VBG Base Excess mEq/L Sodium 139 (136-145) mmol/L Potassium 4.9 (3.5-5.1) mmol/L Chloride 108 H (98-107) mmol/L Carbon Dioxide 21 (21-32) mmol/L Anion Gap 10 (3-11) BUN 45 H (6-23) mg/dl Creatinine 2.58 H (0.6-1.2) mg/dl Est Cr Clr Drug Dosing 23.0 ml/min Est GFR ( Amer) 22.5 ml/min Est GFR (Non-Af Amer) 19.5 ml/min BUN/Creatinine Ratio 17.4 (10-20) Glucose 149 H (70-99(Fasting)) mg/dl Lactate (0.4-2.0) mmol/L Calcium 8.1 L (8.5-10.1) mg/dl Magnesium 1.6 L (1.7-2.4) mg/dl Total Bilirubin 0.9 (0.2-1.0) mg/dl Direct Bilirubin 0.2 (0-0.2) mg/dl AST 35 (13-39) U/L ALT 14 (7-52) U/L Alkaline Phosphatase 66 (34-104) U/L Troponin I High Sens 21.4 H (0-14) pg/ml B-Natriuretic Peptide (0-100) pg/ml Total Protein 5.2 L (6.0-8.3) gm/dl Albumin 2.8 L (3.4-5.0) gm/dl Procalcitonin (0-0.5) ng/ml Urine Color Urine Appearance (Clear) Urine pH (4.5-7.5) Ur Specific [place] (1.000-1.030) Urine Protein (Negative) Urine Glucose (UA) (Negative) Urine Ketones (Negative) Urine Blood (Negative) Urine Nitrite (Negative) Urine Bilirubin (Negative) Urine Urobilinogen (Negative) Ur Leukocyte Esterase (Negative) Nasal Screen MRSA (PCR) (Negative) SARS-CoV-2 (PCR) (Negative) Influenza Type A (PCR) (Neg) Influenza Type B (PCR) (Neg) RSV (RT-PCR) (Neg) 10/31/22 10/31/22 10/31/22 Range/Units 13:22 13:22 13:22 WBC (4.8-10.8) K/ul RBC (3.93-5.22) M/uL Hgb (12.0-16.0) g/dl Hct (34.1-44.9) % MCV (80.0-100.0) fL MCH (25.0-34.0) pg MCHC (32.0-36.0) g/dL RDW Std Deviation (36.4-46.3) fL RDW Coeff of Paty (11.5-14.5) % Plt Count (130-400) K/uL MPV (9.4-12.3) fL Immature Gran % (Auto) % Neut % (Auto) % Lymph % (Auto) % Bland % (Auto) % Eos % (Auto) % Baso % (Auto) % Neut # (Auto) (1.4-6.5) K/uL Lymph # (Auto) (1.2-3.4) K/uL Bland # (Auto) (0.24-0.82) K/uL Eos # (Auto) (0-0.50) K/uL Baso # (Auto) (0-0.2) K/uL Immature Gran # (Auto) (0.00-0.02) K/uL Acanthocytes (Spur) PT (9.0-12.0) Seconds INR (0.9-1.1) APTT (21.0-31.0) Seconds PTT Ratio VBG pH 7.40 (7.36-7.41) VBG pCO2 35 L (38-50) mmHg VBG pO2 39 mmHg VBG HCO3 22 mmol/L VBG O2 Saturation 64.3 % VBG Base Excess -2.7 mEq/L Sodium (136-145) mmol/L Potassium (3.5-5.1) mmol/L Chloride (98-107) mmol/L Carbon Dioxide (21-32) mmol/L Anion Gap (3-11) BUN (6-23) mg/dl Creatinine (0.6-1.2) mg/dl Est Cr Clr Drug Dosing ml/min Est GFR ( Amer) ml/min Est GFR (Non-Af Amer) ml/min BUN/Creatinine Ratio (10-20) Glucose (70-99(Fasting)) mg/dl Lactate 1.8 (0.4-2.0) mmol/L Calcium (8.5-10.1) mg/dl Magnesium (1.7-2.4) mg/dl Total Bilirubin (0.2-1.0) mg/dl Direct Bilirubin (0-0.2) mg/dl AST (13-39) U/L ALT (7-52) U/L Alkaline Phosphatase (34-104) U/L Troponin I High Sens (0-14) pg/ml B-Natriuretic Peptide (0-100) pg/ml Total Protein (6.0-8.3) gm/dl Albumin (3.4-5.0) gm/dl Procalcitonin 0.45 (0-0.5) ng/ml Urine Color Urine Appearance (Clear) Urine pH (4.5-7.5) Ur Specific [place] (1.000-1.030) Urine Protein (Negative) Urine Glucose (UA) (Negative) Urine Ketones (Negative) Urine Blood (Negative) Urine Nitrite (Negative) Urine Bilirubin (Negative) Urine Urobilinogen (Negative) Ur Leukocyte Esterase (Negative) Nasal Screen MRSA (PCR) (Negative) SARS-CoV-2 (PCR) (Negative) Influenza Type A (PCR) (Neg) Influenza Type B (PCR) (Neg) RSV (RT-PCR) (Neg) 10/31/22 10/31/22 10/31/22 Range/Units 13:42 Unknown Unknown WBC (4.8-10.8) K/ul RBC (3.93-5.22) M/uL Hgb (12.0-16.0) g/dl Hct (34.1-44.9) % MCV (80.0-100.0) fL MCH (25.0-34.0) pg MCHC (32.0-36.0) g/dL RDW Std Deviation (36.4-46.3) fL RDW Coeff of Paty (11.5-14.5) % Plt Count (130-400) K/uL MPV (9.4-12.3) fL Immature Gran % (Auto) % Neut % (Auto) % Lymph % (Auto) % Bland % (Auto) % Eos % (Auto) % Baso % (Auto) % Neut # (Auto) (1.4-6.5) K/uL Lymph # (Auto) (1.2-3.4) K/uL Bland # (Auto) (0.24-0.82) K/uL Eos # (Auto) (0-0.50) K/uL Baso # (Auto) (0-0.2) K/uL Immature Gran # (Auto) (0.00-0.02) K/uL Acanthocytes (Spur) PT (9.0-12.0) Seconds INR (0.9-1.1) APTT (21.0-31.0) Seconds PTT Ratio VBG pH (7.36-7.41) VBG pCO2 (38-50) mmHg VBG pO2 mmHg VBG HCO3 mmol/L VBG O2 Saturation % VBG Base Excess mEq/L Sodium (136-145) mmol/L Potassium (3.5-5.1) mmol/L Chloride (98-107) mmol/L Carbon Dioxide (21-32) mmol/L Anion Gap (3-11) BUN (6-23) mg/dl Creatinine (0.6-1.2) mg/dl Est Cr Clr Drug Dosing ml/min Est GFR ( Amer) ml/min Est GFR (Non-Af Amer) ml/min BUN/Creatinine Ratio (10-20) Glucose (70-99(Fasting)) mg/dl Lactate (0.4-2.0) mmol/L Calcium (8.5-10.1) mg/dl Magnesium (1.7-2.4) mg/dl Total Bilirubin (0.2-1.0) mg/dl Direct Bilirubin (0-0.2) mg/dl AST (13-39) U/L ALT (7-52) U/L Alkaline Phosphatase (34-104) U/L Troponin I High Sens (0-14) pg/ml B-Natriuretic Peptide 737 H (0-100) pg/ml Total Protein (6.0-8.3) gm/dl Albumin (3.4-5.0) gm/dl Procalcitonin (0-0.5) ng/ml Urine Color Urine Appearance (Clear) Urine pH (4.5-7.5) Ur Specific [place] (1.000-1.030) Urine Protein (Negative) Urine Glucose (UA) (Negative) Urine Ketones (Negative) Urine Blood (Negative) Urine Nitrite (Negative) Urine Bilirubin (Negative) Urine Urobilinogen (Negative) Ur Leukocyte Esterase (Negative) Nasal Screen MRSA (PCR) Negative (Negative) SARS-CoV-2 (PCR) POSITIVE A* (Negative) Influenza Type A (PCR) Positive A* (Neg) Influenza Type B (PCR) Negative (Neg) RSV (RT-PCR) Negative (Neg) 10/31/22 Range/Units Unknown WBC (4.8-10.8) K/ul RBC (3.93-5.22) M/uL Hgb (12.0-16.0) g/dl Hct (34.1-44.9) % MCV (80.0-100.0) fL MCH (25.0-34.0) pg MCHC (32.0-36.0) g/dL RDW Std Deviation (36.4-46.3) fL RDW Coeff of Paty (11.5-14.5) % Plt Count (130-400) K/uL MPV (9.4-12.3) fL Immature Gran % (Auto) % Neut % (Auto) % Lymph % (Auto) % Bland % (Auto) % Eos % (Auto) % Baso % (Auto) % Neut # (Auto) (1.4-6.5) K/uL Lymph # (Auto) (1.2-3.4) K/uL Bland # (Auto) (0.24-0.82) K/uL Eos # (Auto) (0-0.50) K/uL Baso # (Auto) (0-0.2) K/uL Immature Gran # (Auto) (0.00-0.02) K/uL Acanthocytes (Spur) PT (9.0-12.0) Seconds INR (0.9-1.1) APTT (21.0-31.0) Seconds PTT Ratio VBG pH (7.36-7.41) VBG pCO2 (38-50) mmHg VBG pO2 mmHg VBG HCO3 mmol/L VBG O2 Saturation % VBG Base Excess mEq/L Sodium (136-145) mmol/L Potassium (3.5-5.1) mmol/L Chloride (98-107) mmol/L Carbon Dioxide (21-32) mmol/L Anion Gap (3-11) BUN (6-23) mg/dl Creatinine (0.6-1.2) mg/dl Est Cr Clr Drug Dosing ml/min Est GFR ( Amer) ml/min Est GFR (Non-Af Amer) ml/min BUN/Creatinine Ratio (10-20) Glucose (70-99(Fasting)) mg/dl Lactate (0.4-2.0) mmol/L Calcium (8.5-10.1) mg/dl Magnesium (1.7-2.4) mg/dl Total Bilirubin (0.2-1.0) mg/dl Direct Bilirubin (0-0.2) mg/dl AST (13-39) U/L ALT (7-52) U/L Alkaline Phosphatase (34-104) U/L Troponin I High Sens (0-14) pg/ml B-Natriuretic Peptide (0-100) pg/ml Total Protein (6.0-8.3) gm/dl Albumin (3.4-5.0) gm/dl Procalcitonin (0-0.5) ng/ml Urine Color Yellow Urine Appearance Turbid A (Clear) Urine pH 5.0 (4.5-7.5) Ur Specific [place] 1.021 (1.000-1.030) Urine Protein 4+ H (Negative) Urine Glucose (UA) 1+ H (Negative) Urine Ketones Trace H (Negative) Urine Blood 3+ H (Negative) Urine Nitrite Negative (Negative) Urine Bilirubin Negative (Negative) Urine Urobilinogen Negative (Negative) Ur Leukocyte Esterase Negative (Negative) Nasal Screen MRSA (PCR) (Negative) SARS-CoV-2 (PCR) (Negative) Influenza Type A (PCR) (Neg) Influenza Type B (PCR) (Neg) RSV (RT-PCR) (Neg) Administered Medications Discontinued Medications Albuterol (Albut/Ipratrop 3mg/0.5mg Neb 3 Ml Vial) 9 ml NEB NOW STA; Protocol Stop: 10/31/22 12:57 Last Admin: 10/31/22 13:10 Dose: 9 ml Documented By: MARCIA Dexamethasone Sodium Phosphate (DexamethasonePf 10 Mg/Ml Vial) 6 mg IV NOW ONE Stop: 10/31/22 15:42 Last Admin: 10/31/22 15:47 Dose: 6 mg Documented By: USHA Cefepime HCl (Maxipime) 2,000 mg in 20 mls @ 5 mls/min IV NOW STA; Protocol Stop: 10/31/22 12:59 Last Admin: 10/31/22 14:09 Dose: 5 mls/min Documented By: USHA Acetaminophen (Ofirmev) 1,000 mg in 100 mls @ 400 mls/hr IV NOW STA Stop: 10/31/22 13:10 Last Infusion: 10/31/22 14:38 Dose: 0 mls/hr Documented By: Admin: 10/31/22 13:49 Dose: 400 mls/hr Documented By: USHA Sodium Chloride (Nss 1000ml) 500 mls @ 999 mls/hr IV .Q31M ONE Stop: 10/31/22 13:26 Last Infusion: 10/31/22 14:38 Dose: 0 mls/hr Documented By: Admin: 10/31/22 13:47 Dose: 999 mls/hr Documented By: USHA Oseltamivir Phosphate (Oseltamivir Phosphate Susp 30 Mg/5 Ml Udp) 30 mg PO ONE ONE; Protocol Stop: 10/31/22 15:52 Last Admin: 10/31/22 16:16 Dose: 30 mg Documented By: USHA Imaging Data Radiologist's Impression: Chest X-Ray 10/31/22 12:56 XR chest 1V portable CLINICAL HISTORY: Sepsis COMPARISON STUDY: Chest radiograph October 11, 2022. FINDINGS: Patient is rotated. There is no pneumothorax. Cardiomediastinal silhouette is stable. There is pulmonary vascular congestion. Hazy right basilar opacity is noted. There is apparent left basilar opacity and a possible small left pleural effusion. IMPRESSION: 1. Left basilar opacity with a suspected small left pleural effusion. Hazy right basilar opacity. This could reflect consolidation or atelectasis. Radiographic follow-up is recommended. 2. Pulmonary vascular congestion without overt pulmonary edema. ACT 112: Negative or not required by law. Electronically signed by: Omar Orlando M.D. 10/31/2022 2:35 PM Discharge Plan Visit Data Chief Complaint: Shortness of Breath/Dyspnea Stated Complaint: SOB ED Provider: Matt Tavera Discharge Problem: Acute hypoxemic respiratory failure, Influenza A, CKD (chronic kidney disease) stage 4, GFR 15-29 ml/min Forms Stand Alone Forms: [facility] Prescriptions Prescriptions: No Action (DME) lancets [OneTouch Delica Plus Lancet] 33 gauge misc See Rx Instructions .ROUTE .MEDSUPPLY Qty: 100 3RF Rx Instructions: Test 3 times daily (DME) OneTouch Verio test strips Strip See Rx Instructions .ROUTE .MEDSUPPLY Qty: 100 3RF Rx Instructions: Test 3 times daily albuterol sulfate 90 mcg/actuation HFA aerosol inhaler 2 inh inhalation Q6H PRN (Reason: shortness of breath or wheezing) Qty: 8.5 0RF tacrolimus 1 mg capsule 1 mg PO .COMPLEX Qty: 270 1RF Rx Instructions: 1 mg PO 1 mg PO; TAKE 2 CAPS IN THE MORNING AND 1 CAPS AT NIGHT; (DME) pen needle, diabetic [BD Ultra-Fine Leilani Pen Needle] 32 gauge x 5/32" needle See Rx Instructions .ROUTE .MEDSUPPLY Qty: 360 3RF Rx Instructions: Inject with new needle up to 4x a day solifenacin 5 mg tablet 5 mg PO DAILY calcitriol 0.25 mcg capsule 0.25 mcg PO DAILY Lantus Solostar U-100 Insulin 100 unit/mL (3 mL) insulin pen 24 unit subcut QPM amlodipine [Norvasc] 5 mg Tablet 5 mg PO QAM Qty: 30 0RF famotidine 20 mg Tablet 20 mg PO DAILY Qty: 30 0RF sodium bicarbonate 650 mg Tablet 650 mg PO BID Qty: 60 0RF Referrals Referrals: She Davis DO [Primary Care Provider] -
[2022-10-31] MEDS ORDERED: SODIUM CHLORIDE 0.9% 1000ML 500 ML IV ONE (12:56)
[2022-10-31] MEDS ORDERED: ALBUT/IPRATROP 3MG/0.5MG NEB 3 ML VIAL NEB STA (12:56)
[2022-10-31] MEDS ORDERED: ACETAMINOPHEN 1,000 MG/100 ML VIAL IV STA (12:56)
[2022-10-31] MEDS ORDERED: CEFEPIME 2,000 MG/20 ML VIAL IV STA (12:56)
[2022-10-31 13:45] LABS: Hematocrit (blood only) 24.8 % (34.1-44.9); Hemoglobin 8.3 g/dl (12.0-16.0); Mean Corpuscular Hemoglobin 30.7 pg (25.0-34.0); Mean Corpuscular Hgb Conc 33.5 g/dL (32.0-36.0); Mean Corpuscular Volume 91.9 fL (80.0-100.0); Mean Platelet Volume 10.8 fL (9.4-12.3); Platelet Count 88 K/uL (130-400); RDW Coefficient of Variation 14.8 % (11.5-14.5); RDW Standard Deviation 49.7 fL (36.4-46.3); White Blood Count 2.05 K/ul (4.8-10.8)
[2022-10-31 13:52] LABS: Base Excess VBG -2.7 mEq/L; HCO3 VBG 22 mmol/L; Oxygen Saturation VBG 64.3 %; PCO2 VBG 35 mmHg (38-50); PO2 VBG 39 mmHg
[2022-10-31 13:53] LABS: Acanthocytes 1+; Albumin Level 2.8 gm/dl (3.4-5.0); BUN Creatinine Ratio 17.4 (10-20); Basophils # (auto) 0.01 K/uL (0-0.2); Basophils % (auto) 0.5 %; Bilirubin Direct 0.2 mg/dl (0-0.2); Bilirubin,Total 0.9 mg/dl (0.2-1.0); Calcium 8.1 mg/dl (8.5-10.1); Est GFR (African American) 22.5 ml/min; Est GFR (Non-African American) 19.5 ml/min; Immature Granulocytes # (auto) 0.18 K/uL (0.00-0.02); Immature Granulocytes % (auto) 8.8 %; Lymphocytes % (auto) 9.8 %; Magnesium 1.6 mg/dl (1.7-2.4); Monocytes # (auto) 0.24 K/uL (0.24-0.82); Monocytes % (auto) 11.7 %; Neutrophils # (auto) 1.42 K/uL (1.4-6.5); Neutrophils % (auto) 69.2 %; Potassium 4.9 mmol/L (3.5-5.1); Total Protein 5.2 gm/dl (6.0-8.3)
[2022-10-31 13:58] LABS: Troponin I High Sensitivity 21.4 pg/ml (0-14)
[2022-10-31 14:26] LABS: INR 1.1 (0.9-1.1); Partial Thromboplastin Time 26.9 Seconds (21.0-31.0)
--- NOTE | 2022-10-31 14:36 | XRay Report ---
XR chest 1V portable CLINICAL HISTORY: Sepsis COMPARISON STUDY: Chest radiograph October 11, 2022. FINDINGS: Patient is rotated. There is no pneumothorax. Cardiomediastinal silhouette is stable. There is pulmonary vascular congestion. Hazy right basilar opacity is noted. There is apparent left basila r opacity and a possible small left pleural effusion. IMPRESSION: 1. Left basilar opacity with a suspected small left pleural effusion. Hazy right basilar opacity. Thi s could reflect consolidation or atelectasis. Radiographic follow-up is recommended. 2. Pulmonary vascular congestion without overt pulmonary edema. ACT 112: Negative or not required by law. Electronically signed by: Omar Orlando M.D. 10/31/2022 2:35 PM
[2022-10-31 14:57] LABS: Influenza B virus by PCR Negative (Neg); RSV by PCR Negative (Neg)
--- NOTE | 2022-10-31 14:58 | Electrocardiogram Report ---
Test Reason : Blood Pressure : / mmHG Vent. Rate : 108 BPM Atrial Rate : 108 BPM P-R Int : 140 ms QRS Dur : 076 ms QT Int : 338 ms P-R-T Axes : 063 -22 033 degrees QTc Int : 452 ms Sinus tachycardia Low voltage QRS Possible Lateral infarct (cited on or before 27-OCT-2022) Abnormal ECG When compared with ECG of 27-OCT-2022 20:27, Current undetermined rhythm precludes rhythm comparison, needs review Questionable change in initial forces of Lateral leads Confirmed by William Carter ([id number]) on 10/31/2022 2:57:42 PM Referred By: REFERRED SELF Confirmed By:William Carter
--- NOTE | 2022-10-31 15:20 | History & Physical Report ---
Date of Service October 31, 2022 Assessment & Plan (1) Acute respiratory failure with hypoxia: Plan: Patient presents with respiratory failure with tachypnea requiring BiPAP therapy. She has evidence of possible infiltrate on chest x-ray or also possibly an atypical lung infection. She previously was COVID-positive and remains COVID-positive. She is now influenza positive with family exposure. Patient was initially placed on BiPAP due to her work of breathing. In the past she has been a conditional code allowing for respiratory support and ventilation but not wanting CPR. In the emergency department she was given cefepime and have added blood cultures. COVID and flu testing are positive and its expected that the COVID is from her previous test however with her immunosuppression it is unclear to determine what exactly this means to her overall infectious etiology Tamiflu be given renal dose adjusted, we will not continue dexamethasone at this time, we will continue cefepime. Patient has possible healthcare associated pneumonia given her recent hospital stays x2 Patient has mild troponin elevation which is likely demand ischemia from her respiratory failure we will trend her troponins (2) Diabetes mellitus with neurological manifestations, uncontrolled: Plan: Patient typically on long-acting insulin at home this dose was reduced to 20 units this will be continued with sliding scale (3) Peripheral edema: Plan: Patient has worsening peripheral edema and chest x-ray changes could be pulmonary edema 1 dose of Lasix will be given. Echocardiogram that I could find most recently is from many years ago and shows preserved systolic function but grade 2 diastolic dysfunction. She is typically is not on daily diuretic (4) Stage III chronic kidney disease: Plan: Patient's previous admission was for hyperkalemia secondary to dietary in discretion with chronic kidney disease stage IIIIV Patient's potassium is 4.9 on presentation (5) MGUS (monoclonal gammopathy of unknown significance): Plan: Patient has chronic pancytopenia due to MGUS. She had some anemia last hospital stay this also appears to be stable but all of her cell lines are low (6) Liver transplant recipient: Plan: Patient is status post liver transplant 2018 secondary to primary biliary cirrhosis. She remains on tacrolimus (7) Lumbar vertebral fracture: Plan: Previous history lumbar compression fractures with chronic pain (8) DVT prophylaxis: Plan: Renal dose adjusted hepatal be DVT prevention at this time History of Present Illness Primary Care Provider: She Davis, This is the third admission for this 62-year-old female who is a history of liver transplantation from primary biliary cirrhosis, morbid obesity, diabetes, pancytopenia from MGUS who is here most recently due to hyperkalemia due to dietary discretion on top of stage III-IV kidney disease. Earlier in the month she was admitted and she had COVID positivity this test was + October 11 at that time she was treated treated with a dexamethasone but never was hypoxic and was not a candidate for remdesivir due to her chronic kidney disease. Reportedly she was exposed at home to a family member with influenza A she developed 1 to 2-day history of progressive worsening shortness of breath and nonproductive cough. She presented with a fever and respiratory distress and was rescued with BiPAP. She test positive for both influenza and COVID in the emergency department. She has abnormal chest x-ray changes on the right which looks more to be interstitial findings possibly slight pulmonary edema Allergies Allergy/AdvReac Type Severity Reaction Status Date / Time Iodinated Contrast Media Allergy Intermediate Sneezing Verified 10/31/22 13:36 and breaks out into a rash Penicillins Allergy Intermediate Hives Verified 10/31/22 13:36 metformin Allergy Unknown Unknown Verified 10/31/22 13:36 Home Medications Medication Instructions Recorded Confirmed Type lancets 33 gauge (OneTouch Delica #100 ea 08/23/20 10/31/22 Rx Plus Lancet) pen needle, diabetic 32 gauge x #360 ea 04/04/21 10/31/22 Rx 5/32" (BD Ultra-Fine Leilani Pen Needle) insulin glargine 100 unit/mL (3 24 unit subcut QPM 06/09/21 10/31/22 History mL) subcutaneous pen (Lantus Solostar U-100 Insulin) blood sugar diagnostic (ZhongheeduTouch #100 ea 06/19/21 10/31/22 Rx Verio test strips) amlodipine 5 mg tablet (Norvasc) 5 mg PO QAM #30 tabs 10/16/22 10/31/22 Rx famotidine 20 mg tablet 20 mg PO DAILY #30 tabs 10/16/22 10/31/22 Rx sodium bicarbonate 650 mg tablet 650 mg PO BID #60 tabs 10/16/22 10/31/22 Rx albuterol sulfate 90 mcg/actuation 2 inh inhalation Q6H PRN shortness 10/23/22 10/31/22 Rx aerosol inhaler of breath or wheezing #8.5 grams calcitriol 0.25 mcg capsule 0.25 mcg PO DAILY 10/23/22 10/31/22 History solifenacin 5 mg tablet 5 mg PO DAILY 10/23/22 10/31/22 History tacrolimus 1 mg capsule, 1 mg PO .COMPLEX #270 caps 10/28/22 10/31/22 Rx immediate-release Past Med/Surg History Medical History Anemia of chronic disease Bilateral foot-drop CKD (chronic kidney disease) stage 4, GFR 15-29 ml/min COPD (chronic obstructive pulmonary disease) Degenerative disc disease, lumbar Diabetic neuropathy Esophageal varices GERD (gastroesophageal reflux disease) Hypertension 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) Lumbar pain with radiation down both legs MGUS (monoclonal gammopathy of unknown significance) Osteoarthritis Osteopenia Peripheral neuropathy Primary biliary cirrhosis Proteinuria Right patella fracture SARS-CoV-2 positive Urinary incontinence, urge Vitamin D deficiency Surgical History History of section X 2 History of colonoscopy History of liver transplant (10/13/18) History of lumbar laminectomy for spinal cord decompression (04/22/21) L3-L5 laminectomy History of tonsillectomy History of tooth extraction History of total abdominal hysterectomy and bilateral salpingo-oophorectomy Liver transplant recipient [facility] 10/13/18 Nasal polyp X 3 REMOVED Family History Unknown Adopted Social History Smoking Status: Never smoker Second Hand Exposure: No; Hx Alcohol Use: No Hx Substance Use: No Preferred Language: Setswana Communication Ability: Effective Visual Impairment: No Limitations Hearing Ability: Hard of Hearing Neon Glass Bender Required: No Beliefs That Will Affect Care: None marital status: Current Living Situation: Spouse and Family Current Living Situation Comment: Lives at home with , son, and daughter current occupational status: employed How many Children do You have: 3 Feels Safe at Home: Yes Childhood Exposure to Second-Hand Smoke: No caffeine: Yes during the past year weight has: remained stable Dental Care, Regularly: No Physical Activity Frequency: Daily Seatbelt Use: always Sunscreen Use: No Assistive Devices: Brace/Splint/Immobilizer and Glasses Review of Systems Review of Systems: Moderate respiratory distress and fatigue no headache, no visual changes no speech or swallowing issues no chest pain, pressure or palpitations Shortness of breath coarse coughing no abdominal pain, nausea or vomiting, diarrhea or constipation no dysuria, hematuria or frequency does have urinary incontinence no focal joint pain, does have increased lower extremity swelling no back pain, CVA tenderness or radicular pain no bruising, bleeding or rashes no focal signs of weakness or numbness or altered sensation Physical Exam Physical Exam: The patient appeared in moderate respiratory distress she is morbidly obese appears chronically ill Vital signs as documented. Head exam is normocephalic atraumatic Neck is with difficult to assess for JVD due to body habitus, no stridor Lungs are coarse while wearing BiPAP no focal loss, nonproductive cough Cardiac exam, Rhythm is regular.. No murmurs, rubs or gallops. Abdominal exam reveals normal bowel sounds, soft non tender, no masses Extremities are 1+ edematous bilaterally and both pedal pulses are present Neurologic exam is alert and oriented, no focal loss of strength or sensation Skin is without bruises or rashes Psychologically is without concerns for anxiety or depression.. Results & Data Results & Data ([facility]) Vital Signs (Past 12 Hours) Vital Signs Temp Pulse Pulse Resp BP Pulse Ox O2 Del Method 10/31/22 14:50 93 H 28 H 95 10/31/22 14:30 96 H 27 H 95 10/31/22 14:30 156/71 H 10/31/22 14:00 101 H 32 H 95 10/31/22 14:00 178/73 H 10/31/22 13:48 103 H 32 H 96 10/31/22 13:48 179/91 H 10/31/22 13:30 106 H 34 H 10/31/22 13:01 105 H 37 H 98 10/31/22 13:01 219/81 H 10/31/22 13:00 96 H 23 99 10/31/22 12:41 101 H 27 H 100 10/31/22 12:56 94 BiPAP 10/31/22 13:11 108 H 28 H 97 BiPAP 10/31/22 13:03 105 H 28 H 100 10/31/22 12:20 99 Nasal Cannula 10/31/22 12:20 100.6 F H 105 H 24 98 Nasal Cannula 10/31/22 12:20 Nasal Cannula O2 Flow Rate FiO2 10/31/22 14:50 21 10/31/22 14:30 10/31/22 14:30 10/31/22 14:00 10/31/22 14:00 10/31/22 13:48 10/31/22 13:48 10/31/22 13:30 10/31/22 13:01 10/31/22 13:01 10/31/22 13:00 10/31/22 12:41 10/31/22 12:56 10/31/22 13:11 21 10/31/22 13:03 21 10/31/22 12:20 2 10/31/22 12:20 2 10/31/22 12:20 2 Diagnostic Findings Chest X-Ray 10/31/22 12:56 XR chest 1V portable CLINICAL HISTORY: Sepsis COMPARISON STUDY: Chest radiograph October 11, 2022. FINDINGS: Patient is rotated. There is no pneumothorax. Cardiomediastinal silhouette is stable. There is pulmonary vascular congestion. Hazy right basilar opacity is noted. There is apparent left basilar opacity and a possible small left pleural effusion. IMPRESSION: 1. Left basilar opacity with a suspected small left pleural effusion. Hazy right basilar opacity. This could reflect consolidation or atelectasis. Radiographic follow-up is recommended. 2. Pulmonary vascular congestion without overt pulmonary edema. ACT 112: Negative or not required by law. Electronically signed by: mOar Orlando M.D. 10/31/2022 2:35 PM ECG Additional Comments: Normal sinus rhythm low voltages PG Care Time/CCT Total # of Minutes Spent Total Time Spent with Patient: Total time spent is greater than 50% in coordination of care (as documented) at patient's floor/unit and/or counseling patient: Coding Level of Care Code 14619 Initial Inpt Care Lvl 3 Diagnoses Acute respiratory failure with hypoxia J96.01 Diabetes mellitus with neurological manifestations, uncontrolled E11.49; E11.65 Peripheral edema R60.9 Stage III chronic kidney disease N18.30 MGUS (monoclonal gammopathy of unknown significance) D47.2 Liver transplant recipient Z94.4 Lumbar vertebral fracture S32.009A DVT prophylaxis Z29.9
[2022-10-31 15:40] LABS: Influenza A virus by PCR Positive (Neg); SARS CoV2 RNA(COVID-19) Ceph POSITIVE (Negative)
[2022-10-31] MEDS ORDERED: dexAMETHasone**PF** 10 MG/ML VIAL IV ONE (15:41)
[2022-10-31] MEDS ORDERED: OSELTAMIVIR PHOSPHATE SUSP 30 MG/5 ML UDP PO ONE (15:51)
[2022-10-31 18:14] LABS: Appearance Urine Turbid (Clear); Bacteria Urine Automated Negative (Negative); Bilirubin Urine Negative (Negative); Blood Urine 3+ (Negative); Color Urine Yellow; Glucose Urine UA 1+ (Negative); Ketones Urine Trace (Negative); Leukocyte Esterase Urine Negative (Negative); Nitrite Urine Negative (Negative); Protein Urine 4+ (Negative); Specific Gravity Urine 1.021 (1.000-1.030); Urobilinogen Urine Negative (Negative)
[2022-10-31 18:55] LABS: Amorphous Sediment Urine Present (None Prsent); Cast Urine Automated >30 /lpf (0-5); Granular Casts Urine >30 /lpf (0)
[2022-10-31] MEDS ORDERED: GLUCOSE 10 TAB/TUBE PO PRN (19:52)
[2022-10-31] MEDS ORDERED: DEXTROSE 50% 50 ML SYRINGE IV PRN (19:52)
[2022-10-31] MEDS ORDERED: GLUCAGON FOR INJ 1 MG VIAL SQ PRN (19:52)
[2022-10-31] MEDS ORDERED: ONDANSETRON INJ 2 MG/ML 2 ML VIAL IV PRN (19:52)
[2022-10-31] MEDS ORDERED: ALBUTEROL HFA 8 GM INHALER INH PRN (19:52)
[2022-10-31] MEDS ORDERED: GLUCOSE 40% GEL 15 GM TUBE PO PRN (19:52)
[2022-10-31] MEDS ORDERED: ACETAMINOPHEN 325 MG TAB PO PRN (19:52)
[2022-10-31] MEDS ORDERED: ALBUT/IPRATROP 3MG/0.5MG NEB 3 ML VIAL ONE (20:26)
[2022-10-31] MEDS ORDERED: MAGNESIUM SULFATE / D5W 1 GM/100 ML BAG IV ONE (20:30)
[2022-10-31] MEDS ORDERED: FUROSEMIDE INJ 20 MG/2 ML VIAL IV ONE (20:45)
[2022-10-31] MEDS: ALBUT/IPRATROP 3MG/0.5MG NEB 3 ML VIAL NEB SCH (20:51)
[2022-10-31] MEDS ORDERED: ALBUT/IPRATROP 3MG/0.5MG NEB 3 ML VIAL NEB PRN (20:52)
[2022-10-31] MEDS: INSULIN ASPART PER UNIT SC SCH ×2 (20:55→20:58)
[2022-10-31] MEDS: LANTUS PER UNIT CHARGE SQ SCH (20:58)
[2022-10-31] MEDS: TACROLIMUS 1 MG CAP PO SCH (22:30)
[2022-10-31] MEDS: HEPARIN SOD 5,000 UNIT/0.5 ML VIAL SQ SCH (22:30)
[2022-10-31] MEDS: CEFEPIME 1,000 MG in SYRINGE 0 ML IV SCH (22:30)
[2022-10-31] MEDS: SODIUM BICARBONATE 650 MG TAB PO SCH (22:30)
[2022-11-01] MEDS: ALBUT/IPRATROP 3MG/0.5MG NEB 3 ML VIAL NEB SCH ×4 (07:19→20:04)
[2022-11-01] MEDS: amLODIPine BESYLATE 5 MG TAB PO SCH (08:11)
[2022-11-01] MEDS: HEPARIN SOD 5,000 UNIT/0.5 ML VIAL SQ SCH ×2 (08:11→21:26)
[2022-11-01] MEDS: FAMOTIDINE 20 MG TAB PO SCH (08:12)
[2022-11-01] MEDS: CALCITRIOL 0.25 MCG CAPSULE PO SCH (08:12)
[2022-11-01] MEDS: CEFEPIME 1,000 MG in SYRINGE 0 ML IV SCH ×2 (08:12→21:50)
[2022-11-01] MEDS: TACROLIMUS 1 MG CAP PO SCH ×2 (08:13→21:23)
[2022-11-01] MEDS: OSELTAMIVIR PHOSPHATE SUSP 30 MG/5 ML UDP PO SCH (08:13)
[2022-11-01] MEDS: SODIUM BICARBONATE 650 MG TAB PO SCH ×2 (08:13→21:23)
[2022-11-01] MEDS: SOLIFENACIN SUCCINATE 5 MG PO SCH (08:14)
[2022-11-01 08:25] LABS: Albumin Globulin Ratio 1.2 (0.9-2); Albumin Level 2.6 gm/dl (3.4-5.0); BUN Creatinine Ratio 18.6 (10-20); Bilirubin,Total 0.5 mg/dl (0.2-1.0); Calcium 7.5 mg/dl (8.5-10.1); Est GFR (African American) 19.2 ml/min; Est GFR (Non-African American) 16.5 ml/min; Globulin 2.2 gm/dl (2.5-4.0); Magnesium 1.9 mg/dl (1.7-2.4); Potassium 5.3 mmol/L (3.5-5.1); Total Protein 4.8 gm/dl (6.0-8.3)
[2022-11-01] MEDS: INSULIN ASPART PER UNIT SC SCH ×4 (08:54→21:29)
--- NOTE | 2022-11-01 19:34 | Hospitalist Progress Note ---
Date of Service November 01, 2022 Assessment & Plan (1) Acute respiratory failure with hypoxia: Plan: Patient presents with respiratory failure with tachypnea requiring BiPAP therapy. She has evidence of possible infiltrate on chest x-ray or also possibly an atypical lung infection. She previously was COVID-positive and remains COVID-positive. She is now influenza positive with family exposure. Patient was initially placed on BiPAP due to her work of breathing. In the past she has been a conditional code allowing for respiratory support and ventilation but not wanting CPR. In the emergency department she was given cefepime and have added blood cultures. COVID and flu testing are positive and its expected that the COVID is from her previous test however with her immunosuppression it is unclear to determine what exactly this means to her overall infectious etiology Tamiflu be given renal dose adjusted, we will not continue dexamethasone at this time, we will continue cefepime. Patient has possible healthcare associated pneumonia given her recent hospital stays x2 Patient has mild troponin elevation which is likely demand ischemia from her respiratory failure we will trend her troponins (2) Diabetes mellitus with neurological manifestations, uncontrolled: Plan: Patient typically on long-acting insulin at home this dose was reduced to 20 units this will be continued with sliding scale (3) Peripheral edema: Plan: Patient has worsening peripheral edema and chest x-ray changes could be pulmonary edema 1 dose of Lasix will be given. Echocardiogram that I could find most recently is from many years ago and shows preserved systolic function but grade 2 diastolic dysfunction. She is typically is not on daily diuretic (4) Stage III chronic kidney disease: Plan: Patient's previous admission was for hyperkalemia secondary to dietary in discretion with chronic kidney disease stage IIIIV Patient's potassium is 4.9 on presentation (5) MGUS (monoclonal gammopathy of unknown significance): Plan: Patient has chronic pancytopenia due to MGUS. She had some anemia last hospital stay this also appears to be stable but all of her cell lines are low (6) Liver transplant recipient: Plan: Patient is status post liver transplant 2018 secondary to primary biliary cirrhosis. She remains on tacrolimus (7) Lumbar vertebral fracture: Plan: Previous history lumbar compression fractures with chronic pain (8) DVT prophylaxis: Plan: Renal dose adjusted hepatal be DVT prevention at this time Admission and Anticipated Discharge Date Admission Date: October 31, 2022 Subjective Patient with slight improvement in her shortness of breath No chest pain reported Physical Exam Physical Exam: Constitutional: no acute distress, pleasant. Vitals as above. HEENT: No scleral injection or discharge. . Clear oropharynx without exudate. Neck: Supple without lymphadenopathy or thyromegaly. Trachea midline. Lungs: Clear to auscultation bilaterally with good effort. Cardiac: Normal rhythm. No murmurs.No extremity edema. 2+ distal peripheral pulses. Abdomen:Bowel sounds present. Soft and nondistended. . No guarding or rebound tenderness. No hepatosplenomegaly. MSK: No cyanosis or clubbing. Extremities motor strength 5/5. Skin: No rashes, warm, dry. Neurologic: Grossly intact cranial nerves. Results & Data Results & Data ([facility]) Vital Signs (Past 12 Hours) Vital Signs Temp Pulse Pulse Resp BP Pulse Ox O2 Del Method 11/01/22 15:26 90 16 95 Room Air 11/01/22 15:19 96 H 11/01/22 15:01 36.9 C 96 H 20 143/75 H 97 Room Air 11/01/22 11:53 36.8 C 103 H 19 127/71 93 Room Air 11/01/22 08:00 85 11/01/22 10:54 99 H 18 94 Room Air 11/01/22 09:55 Nasal Cannula 11/01/22 07:43 36.8 C 90 22 145/70 H 92 Room Air O2 Flow Rate 11/01/22 15:26 11/01/22 15:19 11/01/22 15:01 11/01/22 11:53 11/01/22 08:00 11/01/22 10:54 11/01/22 09:55 2 11/01/22 07:43 PG Care Time/CCT Total # of Minutes Spent Total Time Spent with Patient: Total time spent is greater than 50% in coordination of care (as documented) at patient's floor/unit and/or counseling patient: Coding Level of Care Code 70978 Subseq Hosp Care Lvl 2 Diagnoses Acute respiratory failure with hypoxia J96.01 Diabetes mellitus with neurological manifestations, uncontrolled E11.49; E11.65 Peripheral edema R60.9 Stage III chronic kidney disease N18.30 MGUS (monoclonal gammopathy of unknown significance) D47.2 Liver transplant recipient Z94.4 Lumbar vertebral fracture S32.009A DVT prophylaxis Z29.9
[2022-11-01] MEDS: LANTUS PER UNIT CHARGE SQ SCH (21:47)
[2022-11-02 07:16] LABS: Hematocrit (blood only) 25.1 % (34.1-44.9); Hemoglobin 8.3 g/dl (12.0-16.0); Mean Corpuscular Hemoglobin 30.7 pg (25.0-34.0); Mean Corpuscular Hgb Conc 33.1 g/dL (32.0-36.0); Mean Platelet Volume 10.7 fL (9.4-12.3); Platelet Count 148 K/uL (130-400); RDW Standard Deviation 51.3 fL (36.4-46.3); White Blood Count 3.27 K/ul (4.8-10.8)
[2022-11-02 07:54] LABS: Albumin Globulin Ratio 1.1 (0.9-2); Albumin Level 2.6 gm/dl (3.4-5.0); BUN Creatinine Ratio 20.1 (10-20); Bilirubin,Total 0.4 mg/dl (0.2-1.0); Calcium 7.5 mg/dl (8.5-10.1); Creatinine Clr Calc Pharmacy 19.8 ml/min; Est GFR (African American) 18.9 ml/min; Est GFR (Non-African American) 16.3 ml/min; Globulin 2.3 gm/dl (2.5-4.0); Magnesium 1.9 mg/dl (1.7-2.4); Potassium 4.7 mmol/L (3.5-5.1); Total Protein 4.9 gm/dl (6.0-8.3)
[2022-11-02] MEDS: ALBUT/IPRATROP 3MG/0.5MG NEB 3 ML VIAL NEB SCH ×4 (07:54→20:30)
[2022-11-02 08:15] LABS: Basophils # (auto) 0.01 K/uL (0-0.2); Basophils % (auto) 0.3 %; Immature Granulocytes # (auto) 0.22 K/uL (0.00-0.02); Immature Granulocytes % (auto) 6.7 %; Lymphocytes # (auto) 0.96 K/uL (1.2-3.4); Lymphocytes % (auto) 29.4 %; Monocytes # (auto) 0.44 K/uL (0.24-0.82); Monocytes % (auto) 13.5 %; Neutrophils # (auto) 1.64 K/uL (1.4-6.5); Neutrophils % (auto) 50.1 %; Polychromasia 1+
[2022-11-02] MEDS: CARBOHYDRATES FOR HYPOGLYCEMIA PO PRN ×3 (08:15→20:41)
[2022-11-02] MEDS: SOLIFENACIN SUCCINATE 5 MG PO SCH (08:26)
[2022-11-02] MEDS: TACROLIMUS 1 MG CAP PO SCH ×2 (08:28→20:21)
[2022-11-02] MEDS: CALCITRIOL 0.25 MCG CAPSULE PO SCH (08:29)
[2022-11-02] MEDS: amLODIPine BESYLATE 5 MG TAB PO SCH (08:29)
[2022-11-02] MEDS: SODIUM BICARBONATE 650 MG TAB PO SCH ×2 (08:32→20:21)
[2022-11-02] MEDS: FAMOTIDINE 20 MG TAB PO SCH (08:32)
[2022-11-02] MEDS: HEPARIN SOD 5,000 UNIT/0.5 ML VIAL SQ SCH ×2 (08:33→20:20)
[2022-11-02] MEDS: CEFEPIME 1,000 MG in SYRINGE 0 ML IV SCH ×2 (09:07→20:34)
[2022-11-02] MEDS: OSELTAMIVIR PHOSPHATE SUSP 30 MG/5 ML UDP PO SCH (09:08)
[2022-11-02] MEDS: INSULIN ASPART PER UNIT SC SCH ×4 (09:08→20:19)
[2022-11-02] MEDS: LANTUS PER UNIT CHARGE SQ SCH (21:36)
--- NOTE | 2022-11-02 23:42 | Hospitalist Progress Note ---
Date of Service November 02, 2022 Assessment & Plan (1) Acute respiratory failure with hypoxia: Plan: Patient presents with respiratory failure with tachypnea requiring BiPAP therapy. She has evidence of possible infiltrate on chest x-ray or also possibly an atypical lung infection. She previously was COVID-positive and remains COVID-positive. She is now influenza positive with family exposure. Patient was initially placed on BiPAP due to her work of breathing. In the past she has been a conditional code allowing for respiratory support and ventilation but not wanting CPR. In the emergency department she was given cefepime and have added blood cultures. COVID and flu testing are positive and its expected that the COVID is from her previous test however with her immunosuppression it is unclear to determine what exactly this means to her overall infectious etiology Tamiflu be given renal dose adjusted, we will not continue dexamethasone at this time, we will continue cefepime. Patient has possible healthcare associated pneumonia given her recent hospital stays x2 Patient has mild troponin elevation which is likely demand ischemia from her respiratory failure we will trend her troponins Continue to monitor respiratory status closely due to accompanying COVID and flu infection (2) Diabetes mellitus with neurological manifestations, uncontrolled: Plan: Patient typically on long-acting insulin at home this dose was reduced to 20 units this will be continued with sliding scale (3) Peripheral edema: Plan: Patient has worsening peripheral edema and chest x-ray changes could be pulmonary edema 1 dose of Lasix will be given. Echocardiogram that I could find most recently is from many years ago and shows preserved systolic function but grade 2 diastolic dysfunction. She is typically is not on daily diuretic (4) Stage III chronic kidney disease: Plan: Patient's previous admission was for hyperkalemia secondary to dietary in discretion with chronic kidney disease stage IIIIV Patient's potassium is 4.9 on presentation (5) MGUS (monoclonal gammopathy of unknown significance): Plan: Patient has chronic pancytopenia due to MGUS. She had some anemia last hospital stay this also appears to be stable but all of her cell lines are low (6) Liver transplant recipient: Plan: Patient is status post liver transplant 2018 secondary to primary biliary cirrhosis. She remains on tacrolimus for immunosuppression Check tacrolimus level in a.m. (7) Lumbar vertebral fracture: Plan: Previous history lumbar compression fractures with chronic pain (8) DVT prophylaxis: Plan: Renal dose adjusted hepatal be DVT prevention at this time Admission and Anticipated Discharge Date Admission Date: October 31, 2022 Subjective Patient with improvement in her shortness of breath No chest pain reported patient however has increased fatigue Physical Exam Physical Exam: Constitutional: no acute distress, Vitals as above. HEENT: No scleral injection or discharge. . Clear oropharynx without exudate. Neck: Supple without lymphadenopathy or thyromegaly. Trachea midline. Lungs: Clear to auscultation bilaterally with good effort. Cardiac: Normal rhythm. No murmurs.No extremity edema. 2+ distal peripheral pulses. Abdomen:Bowel sounds present. Soft and nondistended. . No guarding MSK: No cyanosis or clubbing. Extremities motor strength 5/5. Skin: No rashes, warm, dry. Neurologic: Grossly intact cranial nerves. Results & Data Results [facility]) Vital Signs (Past 12 Hours) Vital Signs Temp Pulse Pulse Resp BP Pulse Ox O2 Del Method 11/02/22 22:11 37.1 C 96 H 18 137/76 99 Nasal Cannula 11/02/22 20:30 96 H 18 97 Nasal Cannula 11/02/22 19:24 36.7 C 96 H 18 115/63 97 Room Air 11/02/22 16:53 37 C 92 H 18 118/64 94 Room Air 11/02/22 15:57 90 18 94 Nasal Cannula 11/02/22 14:10 90 11/02/22 12:42 37.0 C 83 20 138/69 95 Room Air O2 Flow Rate 11/02/22 22:11 2 11/02/22 20:30 2 11/02/22 19:24 11/02/22 16:53 11/02/22 15:57 2 11/02/22 14:10 11/02/22 12:42 PG Care Time/CCT Total # of Minutes Spent Total Time Spent with Patient: Total time spent is greater than 50% in coordination of care (as documented) at patient's floor/unit and/or counseling patient: Coding Level of Care Code 11834 Subseq Hosp Care Lvl 2 Diagnoses Acute respiratory failure with hypoxia J96.01 Diabetes mellitus with neurological manifestations, uncontrolled E11.49; E11.65 Peripheral edema R60.9 Stage III chronic kidney disease N18.30 MGUS (monoclonal gammopathy of unknown significance) D47.2 Liver transplant recipient Z94.4 Lumbar vertebral fracture S32.009A DVT prophylaxis Z29.9
[2022-11-03] MEDS: ALBUT/IPRATROP 3MG/0.5MG NEB 3 ML VIAL NEB SCH ×4 (05:53→19:40)
[2022-11-03 09:16] LABS: Albumin Globulin Ratio 1.1 (0.9-2); Albumin Level 2.3 gm/dl (3.4-5.0); Bilirubin,Total 0.5 mg/dl (0.2-1.0); Calcium 7.5 mg/dl (8.5-10.1); Creatinine Clr Calc Pharmacy 21.4 ml/min; Est GFR (African American) 20.9 ml/min; Globulin 2.1 gm/dl (2.5-4.0); Magnesium 1.9 mg/dl (1.7-2.4); Total Protein 4.4 gm/dl (6.0-8.3)
[2022-11-03 09:18] LABS: Hematocrit (blood only) 23.3 % (34.1-44.9); Hemoglobin 7.7 g/dl (12.0-16.0); Mean Corpuscular Hemoglobin 30.7 pg (25.0-34.0); Mean Corpuscular Volume 92.8 fL (80.0-100.0); Mean Platelet Volume 10.1 fL (9.4-12.3); Platelet Count 92 K/uL (130-400); RDW Coefficient of Variation 14.7 % (11.5-14.5); RDW Standard Deviation 49.8 fL (36.4-46.3); Red Blood Count 2.51 M/uL (3.93-5.22); White Blood Count 2.07 K/ul (4.8-10.8)
[2022-11-03] MEDS: SOLIFENACIN SUCCINATE 5 MG PO SCH (09:22)
[2022-11-03] MEDS: SODIUM BICARBONATE 650 MG TAB PO SCH ×2 (09:22→20:36)
[2022-11-03] MEDS: FAMOTIDINE 20 MG TAB PO SCH (09:22)
[2022-11-03] MEDS: CALCITRIOL 0.25 MCG CAPSULE PO SCH (09:22)
[2022-11-03] MEDS: TACROLIMUS 1 MG CAP PO SCH ×2 (09:22→20:37)
[2022-11-03] MEDS: amLODIPine BESYLATE 5 MG TAB PO SCH (09:22)
[2022-11-03] MEDS: INSULIN ASPART PER UNIT SC SCH ×4 (09:23→20:31)
[2022-11-03] MEDS: HEPARIN SOD 5,000 UNIT/0.5 ML VIAL SQ SCH ×2 (09:23→20:36)
[2022-11-03] MEDS: CEFEPIME 1,000 MG in SYRINGE 0 ML IV SCH ×2 (09:57→20:38)
[2022-11-03] MEDS: OSELTAMIVIR PHOSPHATE SUSP 30 MG/5 ML UDP PO SCH (09:58)
[2022-11-03 10:16] LABS: Giant Platelets 1+; Platelet Estimate Decreased (Normal); Smudge Cells Present
[2022-11-03 10:23] LABS: Basophils # (auto) 0.01 K/uL (0-0.2); Basophils % (auto) 0.5 %; Eosinophils # (auto) 0.02 K/uL (0-0.50); Immature Granulocytes # (auto) 0.17 K/uL (0.00-0.02); Immature Granulocytes % (auto) 8.2 %; Lymphocytes % (auto) 43.5 %; Monocytes # (auto) 0.29 K/uL (0.24-0.82); Neutrophils # (auto) 0.68 K/uL (1.4-6.5); Neutrophils % (auto) 32.8 %
--- NOTE | 2022-11-03 13:45 | Hospitalist Progress Note ---
Date of Service November 03, 2022 Assessment & Plan (1) Acute respiratory failure with hypoxia: Plan: Patient presents with respiratory failure with tachypnea requiring BiPAP therapy. She has evidence of possible infiltrate on chest x-ray or also possibly an atypical lung infection. She previously was COVID-positive and remains COVID-positive. She is now influenza positive with family exposure. Patient was initially placed on BiPAP due to her work of breathing. In the past she has been a conditional code allowing for respiratory support and ventilation but not wanting CPR. In the emergency department she was given cefepime and have added blood cultures. COVID and flu testing are positive and its expected that the COVID is from her previous test however with her immunosuppression it is unclear to determine what exactly this means to her overall infectious etiology Tamiflu be given renal dose adjusted, continue cefepime. Patient has possible healthcare associated pneumonia Patient does not have significant hypoxia and still hold Decadron at this time Patient has mild troponin elevation which is likely demand ischemia from her respiratory failure we will trend her troponins Continue to monitor respiratory status closely due to accompanying COVID and flu infection Patient also has confounding variables such as liver transplant along with chronic immunosuppressive state with borderline neutropenia Continue supportive therapy Discussed with patient overall plan in depth (2) Diabetes mellitus with neurological manifestations, uncontrolled: Plan: Patient typically on long-acting insulin at home this dose was reduced to 20 units this will be continued with sliding scale (3) Peripheral edema: Plan: Patient has worsening peripheral edema and chest x-ray changes could be pulmonary edema 1 dose of Lasix will be given. Echocardiogram that I could find most recently is from many years ago and shows preserved systolic function but grade 2 diastolic dysfunction. Monitor I's and O's closely (4) Stage III chronic kidney disease: Plan: Patient's previous admission was for hyperkalemia secondary to dietary in discretion with chronic kidney disease stage IIIIV Patient's potassium is 4.9 on presentation (5) MGUS (monoclonal gammopathy of unknown significance): Plan: Patient has chronic pancytopenia due to MGUS. She had some anemia last hospital stay this also appears to be stable but all of her cell lines are low (6) Liver transplant recipient: Plan: Patient is status post liver transplant 2018 secondary to primary biliary cirrhosis. She remains on tacrolimus for immunosuppression Check tacrolimus level in a.m. levels ordered but pending at this time we will follow target trough levels between 5-9 (7) Lumbar vertebral fracture: Plan: Previous history lumbar compression fractures with chronic pain (8) DVT prophylaxis: Plan: Renal dose adjusted hepatal be DVT prevention at this time Admission and Anticipated Discharge Date Admission Date: October 31, 2022 Subjective Patient reports improvement in her shortness of breath at rest but has increased fatigue upon moving in the room No chest pain reported patient however patient has increased fatigue Physical Exam Physical Exam: Constitutional: no acute distress, Vitals as above. HEENT: No scleral injection or discharge. . Clear oropharynx without exudate. Neck: Supple without lymphadenopathy or thyromegaly. Trachea midline. Lungs: Clear to auscultation bilaterally with good effort. Cardiac: Normal rhythm. No murmurs.No extremity edema. . Abdomen:Bowel sounds present. Soft and nondistended. . No guarding MSK: No cyanosis or clubbing. Skin: No rashes, warm, dry. Neurologic: Grossly intact cranial nerves. Results & Data Results & Data ([facility]) Vital Signs (Past 12 Hours) Vital Signs Temp Pulse Pulse Resp BP Pulse Ox O2 Del Method 11/03/22 12:05 36.9 C 96 H 22 130/68 94 Room Air 11/03/22 06:06 86 11/03/22 10:34 87 20 95 Room Air 11/03/22 09:18 37.1 C 89 18 177/81 H 95 Room Air, Nasal Cannula 11/03/22 05:53 84 18 97 Room Air 11/03/22 04:00 37.1 C 87 16 131/70 96 Room Air O2 Flow Rate 11/03/22 12:05 11/03/22 06:06 11/03/22 10:34 11/03/22 09:18 2 11/03/22 05:53 11/03/22 04:00 Laboratory Results Short CBC 11/03/22 Range/Units 07:59 WBC 2.07 L (4.8-10.8) K/ul Hgb 7.7 L (12.0-16.0) g/dl Hct 23.3 L (34.1-44.9) % Plt Count 92 L (130-400) K/uL BMP 11/03/22 07:59 Sodium 140 Potassium 5.0 Chloride 111 H Carbon Dioxide 25 BUN 55 H Creatinine 2.75 H Glucose 100 H Calcium 7.5 L Liver Function 11/03/22 Range/Units 07:59 Total Bilirubin 0.5 (0.2-1.0) mg/dl AST 44 H (13-39) U/L ALT 16 (7-52) U/L Alkaline Phosphatase 49 (34-104) U/L Albumin 2.3 L (3.4-5.0) gm/dl PG Care Time/CCT Total # of Minutes Spent Total Time Spent with Patient: Total time spent is greater than 50% in coordination of care (as documented) at patient's floor/unit and/or counseling patient: Coding Level of Care Code 85921 Subseq Hosp Care Lvl 2 Diagnoses Acute respiratory failure with hypoxia J96.01 Diabetes mellitus with neurological manifestations, uncontrolled E11.49; E11.65 Peripheral edema R60.9 Stage III chronic kidney disease N18.30 MGUS (monoclonal gammopathy of unknown significance) D47.2 Liver transplant recipient Z94.4 Lumbar vertebral fracture S32.009A DVT prophylaxis Z29.9
[2022-11-03] MEDS: LANTUS PER UNIT CHARGE SQ SCH (20:36)
[2022-11-04] MEDS: ALBUT/IPRATROP 3MG/0.5MG NEB 3 ML VIAL NEB SCH ×4 (05:21→19:30)
[2022-11-04 07:42] LABS: BUN Creatinine Ratio 19.3 (10-20); Calcium 7.6 mg/dl (8.5-10.1); Creatinine Clr Calc Pharmacy 21.7 ml/min; Est GFR (African American) 21.4 ml/min; Est GFR (Non-African American) 18.5 ml/min; Potassium 4.5 mmol/L (3.5-5.1)
[2022-11-04 07:48] LABS: Hematocrit (blood only) 22.7 % (34.1-44.9); Hemoglobin 7.6 g/dl (12.0-16.0); Mean Corpuscular Hemoglobin 30.9 pg (25.0-34.0); Mean Corpuscular Hgb Conc 33.5 g/dL (32.0-36.0); Mean Corpuscular Volume 92.3 fL (80.0-100.0); Mean Platelet Volume 10.5 fL (9.4-12.3); Platelet Count 85 K/uL (130-400); RDW Coefficient of Variation 14.8 % (11.5-14.5); RDW Standard Deviation 50.4 fL (36.4-46.3); Red Blood Count 2.46 M/uL (3.93-5.22); White Blood Count 1.65 K/ul (4.8-10.8)
[2022-11-04 08:01] LABS: Basophils # (auto) 0.01 K/uL (0-0.2); Basophils % (auto) 0.6 %; Eosinophils # (auto) 0.02 K/uL (0-0.50); Eosinophils % (auto) 1.2 %; Immature Granulocytes # (auto) 0.13 K/uL (0.00-0.02); Immature Granulocytes % (auto) 7.9 %; Lymphocytes # (auto) 0.78 K/uL (1.2-3.4); Lymphocytes % (auto) 47.3 %; Monocytes # (auto) 0.21 K/uL (0.24-0.82); Monocytes % (auto) 12.7 %; Neutrophils % (auto) 30.3 %
[2022-11-04 08:02] LABS: Giant Platelets 1+; Poikilocytosis Present
[2022-11-04] MEDS: INSULIN ASPART PER UNIT SC SCH ×4 (08:19→21:23)
[2022-11-04] MEDS: CEFEPIME 1,000 MG in SYRINGE 0 ML IV SCH ×2 (08:36→21:03)
[2022-11-04] MEDS: HEPARIN SOD 5,000 UNIT/0.5 ML VIAL SQ SCH ×2 (08:37→21:01)
[2022-11-04] MEDS: OSELTAMIVIR PHOSPHATE SUSP 30 MG/5 ML UDP PO SCH (08:37)
[2022-11-04] MEDS: SODIUM BICARBONATE 650 MG TAB PO SCH ×2 (08:37→21:03)
[2022-11-04] MEDS: amLODIPine BESYLATE 5 MG TAB PO SCH (08:38)
[2022-11-04] MEDS: CALCITRIOL 0.25 MCG CAPSULE PO SCH (08:38)
[2022-11-04] MEDS: FAMOTIDINE 20 MG TAB PO SCH (08:38)
[2022-11-04] MEDS: SOLIFENACIN SUCCINATE 5 MG PO SCH (08:38)
[2022-11-04] MEDS: TACROLIMUS 1 MG CAP PO SCH ×2 (08:39→21:03)
--- NOTE | 2022-11-04 17:18 | Hospitalist Progress Note ---
Date of Service November 04, 2022 Assessment & Plan (1) Acute respiratory failure with hypoxia: Plan: 2nd to influenza A infection, possible bacterial superinfection/pneumonia, +/- pulmonary edema. Day #4/5 of tamiflu. Day # 4-5/7 of cefepime for possible bacterial pneumonia. Bumex today for volume overload. Was on BIPAP at admission; now in RA; thus, resp failure resolved. All of the above is in context of COVID infection in 10/2022. (2) Diabetes mellitus with neurological manifestations, uncontrolled: Plan: Cont lantus Cont novolog BSGs acceptable 10/2022 a1c 5% but suspect it is falsely low due to anemia (3) Stage III chronic kidney disease: Plan: Cr baseline was <2 up until October 2022 when it climbed to >2 it has remained >2 since then now STAGE 4 with CrCl 20s saw [facility] during prior admission in 10/22 if she is developing multiple myeloma - 2nd to such? nephrology notes suggest ?CNI nephropathy, worsening baseline CKD or other etiology. f/u on labs sent in October. will need close f/u with primary antiquer in [place] post-d/c. daily BMP while here. (4) MGUS (monoclonal gammopathy of unknown significance): Plan: h/o such f/u on labs from October (SPEP, etc) (5) Liver transplant recipient: Plan: Patient is status post liver transplant 2018 secondary to primary biliary cirrhosis. She remains on tacrolimus for immunosuppression - level pending. Le daryl in 10/22 was wnl. Follows with [facility] but has not seen them in what sounds like several years?? LFTs have been wnl fortunately except scant elevation ast/alt. INR 1.1. Await repeat tacrolimus level especially in light of progressive renal disease. (6) Lumbar vertebral fracture: Plan: Previous history lumbar compression fractures with chronic pain (7) DVT prophylaxis: Plan: heparin 5000 BID (8) COVID-19: Plan: 10/2022 - resolved d/c airborne isolation? (9) Influenza A: Plan: some of current respiratory issues are due to such. day #4 of 5 of tamiflu. cont isolation precautions. supportive care. nebs. etc. (10) Primary biliary cirrhosis: Plan: as above (11) Volume overload: Plan: check echo in am bumex 1mg x 1 now repeat cxr pulmonary edema/volume overload - 2nd to renal disease/severe proteinuria? CHF? liver disease? combination? 4+ protein on most recent u/a TSH 10/22 wnl (12) Pancytopenia: Plan: check b12/folate in am f/u on labs from 10/2022 (SPEP, etc) bone marrow biopsy for definitive dx?? Plan needs PT/OT Admission and Anticipated Discharge Date Admission Date: October 31, 2022 Subjective patient c/o ongoing wheezing, cough, and dyspnea on exertion wheezing/dyspnea present x 1 year but much worse of late also c/o weight gain with fluid in abdomen and legs - progressive over last few weeks/months appetite is poor energy is poor she cannot tell me when she last saw her liver transplant team in [place] - "COVID got in the way" sees nephrology in [place] - last visit? but is scheduled to see them November 09 tele overnight NSR denies pain in any location Review of Systems Review of Systems: gen - no fevers or chills cv - no chest pain but does have edema & orthopnea pulm - cough/wheezing/dyspnea GI - no nausea or emesis Physical Exam Physical Exam: gen - obese; audible wheezing from across the room; coughing neck - JVD present mouth - MMM heart - RRR, s1 s2, 2/6 EMILY LSB lungs - diffuse wheezes b/l; crackles bases; some rhonchi abd - soft NT ND BS+; no HSM ext - 2+ pitting edema from feet up to thighs; pulses 2+ b/l psych - a/o x 3 Results & Data Results & Data ([facility]) Vital Signs (Past 12 Hours) Vital Signs Temp Pulse Resp BP Pulse Ox O2 Del Method 11/04/22 14:40 95 H 18 96 Room Air 11/04/22 12:51 36.6 C 88 18 127/70 97 Room Air 11/04/22 08:00 Room Air 11/04/22 10:31 88 18 97 Room Air 11/04/22 07:53 36.7 C 97 H 18 177/84 H 97 Room Air 11/04/22 05:21 88 18 98 Room Air Laboratory Results Laboratory Results - last 24 hr 11/04/22 11/04/22 11/04/22 11:45 16:48 20:57 WBC RBC Hgb Hct MCV MCH MCHC Plt Count MPV Sodium Potassium Chloride Carbon Dioxide Anion Gap BUN Creatinine Est Cr Clr Drug Dosing Est GFR ( Amer) Est GFR (Non-Af Amer) BUN/Creatinine Ratio Glucose POC Glucose 156 H 172 H 119 H Calcium Vitamin B12 Folate Cr 2.69 Hb 7.6 ANC 500 WBC 1.6 platelets 85 PG Care Time/CCT Total # of Minutes Spent Total Time Spent with Patient: Total time spent is greater than 50% in coordination of care (as documented) at patient's floor/unit and/or counseling patient: Coding Level of Care Code 36665 SUB INP/OBS CARE 3/50MIN Diagnoses Acute respiratory failure with hypoxia J96.01 Diabetes mellitus with neurological manifestations, uncontrolled E11.49; E11.65 Stage III chronic kidney disease N18.30 MGUS (monoclonal gammopathy of unknown significance) D47.2 Liver transplant recipient Z94.4 Lumbar vertebral fracture S32.009A DVT prophylaxis Z29.9 COVID-19 U07.1 Influenza A J10.1 Primary biliary cirrhosis K74.3 Volume overload E87.70 Pancytopenia D61.818
[2022-11-04] MEDS ORDERED: BUMETANIDE 1 MG TAB PO ONE (19:11)
[2022-11-04] MEDS: LANTUS PER UNIT CHARGE SQ SCH (21:01)
--- NOTE | 2022-11-04 21:22 | Ultrasound Report ---
US venous doppler LE BI CLINICAL HISTORY: prolonged immobility, edema; r/o DVT TECHNIQUE: Bilateral lower extremity real-time compression venous ultrasound with Color Doppler imagi ng. Utilizing real-time ultrasonic imaging multiple real time high-resolution ultrasonic images with compression and noncompression maneuvers of the deep venous system in addition to color doppler imagi ng were performed from the common femoral vein through the proximal calf veins. COMPARISON: None available at the time of this dictation. FINDINGS: Currently there is normal compressibility of the deep venous system from the common femoral vein thro ugh the proximal calf veins. Limited of the left calf veins as well as the right distal femoral vein . Right posterior tibial and peroneal veins were not visualized. Impression: Limited exam without evidence of deep venous thrombus. ACT 112: Negative or not required by law. Electronically signed by: Kervin Augustin M.D. 11/04/2022 9:21 PM
--- NOTE | 2022-11-04 21:26 | XRay Report ---
XR chest 1V portable CLINICAL HISTORY: b/l wheezes; ?pulm edema? TECHNIQUE: Single frontal radiograph of the chest was obtained. Comparison: Comparison is made to chest radiograph 10/31/2022 FINDINGS: No lines and tubes are seen. Cardiomegaly is noted. Airspace opacities are seen in the right upper lo be and atelectasis is noted in the right lower lobe. There is prominence and cephalization of the pul monary vasculature. No evidence of pleural effusion or pneumothorax. IMPRESSION: 1. Cardiomegaly and mild pulmonary edema. 2. Right upper lobe airspace opacity likely reflects pneumonia versus less likely alveolar edema. ACT 112: Negative or not required by law. Electronically signed by: Kervin Augustin M.D. 11/04/2022 9:24 PM
[2022-11-05] MEDS: ALBUT/IPRATROP 3MG/0.5MG NEB 3 ML VIAL NEB SCH ×4 (07:33→19:43)
[2022-11-05] MEDS: INSULIN ASPART PER UNIT SC SCH ×4 (08:13→21:22)
[2022-11-05 08:30] LABS: Hematocrit (blood only) 24.6 % (34.1-44.9); Hemoglobin 8.2 g/dl (12.0-16.0); Mean Platelet Volume 10.5 fL (9.4-12.3); Platelet Count 110 K/uL (130-400); White Blood Count 2.22 K/ul (4.8-10.8)
[2022-11-05 08:55] LABS: BUN Creatinine Ratio 18.4 (10-20); Creatinine Clr Calc Pharmacy 22.9 ml/min; Est GFR (African American) 22.8 ml/min; Est GFR (Non-African American) 19.6 ml/min; Potassium 4.3 mmol/L (3.5-5.1)
[2022-11-05] MEDS ORDERED: BUMETANIDE 1 MG TAB PO ONE (09:15)
[2022-11-05 09:16] LABS: Giant Platelets 1+; Mean Corpuscular Hemoglobin 30.9 pg (25.0-34.0); Mean Corpuscular Hgb Conc 33.3 g/dL (32.0-36.0); Mean Corpuscular Volume 92.8 fL (80.0-100.0); Poikilocytosis Present; RDW Coefficient of Variation 14.7 % (11.5-14.5); RDW Standard Deviation 50.4 fL (36.4-46.3); Red Blood Count 2.65 M/uL (3.93-5.22)
[2022-11-05 09:17] LABS: Basophils # (auto) 0.01 K/uL (0-0.2); Basophils % (auto) 0.5 %; Eosinophils # (auto) 0.07 K/uL (0-0.50); Eosinophils % (auto) 3.2 %; Immature Granulocytes # (auto) 0.08 K/uL (0.00-0.02); Immature Granulocytes % (auto) 3.6 %; Lymphocytes # (auto) 1.23 K/uL (1.2-3.4); Lymphocytes % (auto) 55.4 %; Monocytes # (auto) 0.23 K/uL (0.24-0.82); Monocytes % (auto) 10.4 %; Neutrophils % (auto) 26.9 %
[2022-11-05] MEDS: OSELTAMIVIR PHOSPHATE SUSP 30 MG/5 ML UDP PO SCH (09:23)
[2022-11-05] MEDS: amLODIPine BESYLATE 5 MG TAB PO SCH (09:23)
[2022-11-05] MEDS: CEFEPIME 1,000 MG in SYRINGE 0 ML IV SCH ×2 (09:23→21:29)
[2022-11-05] MEDS: CALCITRIOL 0.25 MCG CAPSULE PO SCH ×2 (09:23→09:36)
[2022-11-05] MEDS: SODIUM BICARBONATE 650 MG TAB PO SCH ×2 (09:24→21:29)
[2022-11-05] MEDS: HEPARIN SOD 5,000 UNIT/0.5 ML VIAL SQ SCH ×2 (09:24→21:29)
[2022-11-05] MEDS: TACROLIMUS 1 MG CAP PO SCH ×2 (09:24→21:29)
[2022-11-05] MEDS: SOLIFENACIN SUCCINATE 5 MG PO SCH (09:24)
[2022-11-05] MEDS: FAMOTIDINE 20 MG TAB PO SCH (09:24)
--- NOTE | 2022-11-05 18:08 | XCELERA ---
[id number]
--- NOTE | 2022-11-05 21:25 | Hospitalist Progress Note ---
Date of Service November 05, 2022 Assessment & Plan (1) Acute respiratory failure with hypoxia: Plan: 2nd to influenza A infection, possible bacterial superinfection/pneumonia, and pulmonary edema. Day #5/5 of tamiflu. Day # 5-6/7 of cefepime for possible bacterial pneumonia. Cont Bumex today for volume overload. Was on BIPAP at admission; now in RA; thus, resp failure resolved. All of the above is in context of COVID infection in 10/2022. (2) Diabetes mellitus with neurological manifestations, uncontrolled: Plan: Cont lantus Cont novolog BSGs acceptable/controlled 10/2022 a1c 5% but suspect it is falsely low due to anemia (3) Stage III chronic kidney disease: Plan: Cr baseline was <2 up until October 2022 when it climbed to >2 it has remained >2 since then now STAGE 4 with CrCl 20s [facility] prior admission in 10/22 if she is developing multiple myeloma - 2nd to such? nephrology notes suggest ?CNI nephropathy, worsening baseline CKD or other etiology. f/u on labs sent in October. follows with shop clerk in [place] ([facility]). daily BMP while here. will likely involve nephrology here once again due to ongoing volume issues, severe proteinuria, and ongoing renal dysfunction. (4) MGUS (monoclonal gammopathy of unknown significance): Plan: h/o such has worsening pancytopenia the pancytopenia is chronic, but cell lines gradually decreasing over last few months b12/folate wnl TSH wnl I spoke with Dr Brito from hematology who will formally consult he requested HIV and CMV testing - I obtained consent for HIV testing from patient today risk factor for HIV - numerous blood transfusions in the past has MGUS morphed into multiple myeloma? patient has had bone marrow biopsies in the past - none in several years - may need another BMB appreciate Dr Brito's consultation (5) Liver transplant recipient: Plan: Patient is status post liver transplant 2018 secondary to primary biliary cirrhosis. She remains on tacrolimus for immunosuppression - level returned low (4.5). Level in 10/22 was wnl. Follows with [facility] but has not seen them in what sounds like several years??? LFTs have been wnl fortunately except scant elevation ast/alt - perhaps from volume overload vs viral vs other. INR 1.1. Cont tacrolimus 1mg HS and 2mg AM. Likely need to touch base with liver transplant team in [place]. (6) Lumbar vertebral fracture: Plan: Previous history lumbar compression fractures with chronic pain (7) DVT prophylaxis: Plan: heparin 5000 BID (8) COVID-19: Plan: 10/2022 - resolved d/c airborne isolation per infection control guidance cont droplet precautions due to FluA infection (9) Influenza A: Plan: some of current respiratory issues are due to such. day #5 of 5 of tamiflu. cont droplet precautions. supportive care. nebs. etc. (10) Primary biliary cirrhosis: Plan: as above (11) Volume overload: Plan: echo today with preserved EF no valvular disease no significant diastolic dysfunction volume overload is 2nd to progressive renal dysfunction repeat bumex today 2mg x 1 BMP am 4+ protein on most recent u/a TSH 10/22 wnl (12) Pancytopenia: Plan: b12/folate wnl bone marrow biopsy for definitive dx?? Dr Brito to see in consult see "MGUS" above Plan PT, OT evals pending for severe deconditioning Admission and Anticipated Discharge Date Admission Date: October 31, 2022 Subjective patient states her cough continues - maybe slightly better than yesterday wheezing continues - also maybe slightly better GALVEZ remains eating remains poor tele overnight wnl offers no new complaints she has noticed increased UOP with diuretics Review of Systems Review of Systems: gen - no fevers/chills; weakness/fatigue cv - no chest pain; ongoing edema pulm - some sputum production GI - no nausea/emesis Physical Exam Physical Exam: gen - obese; severe cough; no distress neck - JVD present mouth - MMM heart - RRR, s1 s2, 2/6 EMILY LSB lungs - diffuse wheezes b/l; crackles bases; some rhonchi; scant improvement from yesterday's exam abd - soft NT ND BS+; no HSM ext - 2+ pitting edema - no change; pulses 2+ b/l psych - a/o x 3 Results & Data Results & Data ([facility]) Vital Signs (Past 12 Hours) Vital Signs Temp Pulse Resp BP Pulse Ox Pulse Ox O2 Del Method 11/05/22 19:45 82 97 Room Air 11/05/22 19:00 36.7 C 87 18 162/71 H 96 Room Air 11/05/22 16:00 36.8 C 87 18 137/67 94 Room Air 11/05/22 14:53 87 18 96 Room Air 11/05/22 11:50 36.6 C 98 H 18 136/79 98 Room Air 11/05/22 11:39 96 11/05/22 11:01 85 20 95 Room Air O2 Flow Rate FiO2 11/05/22 19:45 21 11/05/22 19:00 11/05/22 16:00 11/05/22 14:53 11/05/22 11:50 11/05/22 11:39 0 11/05/22 11:01 Laboratory Results Laboratory Results - last 24 hr 11/03/22 11/05/22 11/05/22 07:59 07:41 07:54 WBC 2.22 L RBC 2.65 L Hgb 8.2 L Hct 24.6 L MCV 92.8 MCH 30.9 MCHC 33.3 RDW Std Deviation 50.4 H RDW Coeff of Paty 14.7 H Plt Count 110 L MPV 10.5 Immature Gran % (Auto) 3.6 Neut % (Auto) 26.9 Lymph % (Auto) 55.4 [place] % (Auto) 10.4 Eos % (Auto) 3.2 Baso % (Auto) 0.5 Neut # (Auto) 0.60 L* Lymph # (Auto) 1.23 [place] # (Auto) 0.23 L Eos # (Auto) 0.07 Baso # (Auto) 0.01 Immature Gran # (Auto) 0.08 H Hyposegmented Neuts 1+ Giant Platelets 1+ Poikilocytosis Present Sodium Potassium Chloride Carbon Dioxide Anion Gap BUN Creatinine Est Cr Clr Drug Dosing Est GFR ( Amer) Est GFR (Non-Af Amer) BUN/Creatinine Ratio Glucose POC Glucose 159 H Calcium Vitamin B12 Folate Tacrolimus 4.5 L 11/05/22 11/05/22 11/05/22 07:54 07:54 11:38 WBC RBC Hgb Hct MCV MCH MCHC RDW Std Deviation RDW Coeff of Paty Plt Count MPV Immature Gran % (Auto) Neut % (Auto) Lymph % (Auto) [place] % (Auto) Eos % (Auto) Baso % (Auto) Neut # (Auto) Lymph # (Auto) [place] # (Auto) Eos # (Auto) Baso # (Auto) Immature Gran # (Auto) Hyposegmented Neuts Giant Platelets Poikilocytosis Sodium 140 Potassium 4.3 Chloride 110 H Carbon Dioxide 23 Anion Gap 7 BUN 47 H Creatinine 2.56 H Est Cr Clr Drug Dosing 22.9 Est GFR ( Amer) 22.8 Est GFR (Non-Af Amer) 19.6 BUN/Creatinine Ratio 18.4 Glucose 149 H POC Glucose 115 H Calcium 8.0 L Vitamin B12 1012 H Folate 9.61 Tacrolimus 11/05/22 11/05/22 16:23 20:07 WBC RBC Hgb Hct MCV MCH MCHC RDW Std Deviation RDW Coeff of Paty Plt Count MPV Immature Gran % (Auto) Neut % (Auto) Lymph % (Auto) [place] % (Auto) Eos % (Auto) Baso % (Auto) Neut # (Auto) Lymph # (Auto) [place] # (Auto) Eos # (Auto) Baso # (Auto) Immature Gran # (Auto) Hyposegmented Neuts Giant Platelets Poikilocytosis Sodium Potassium Chloride Carbon Dioxide Anion Gap BUN Creatinine Est Cr Clr Drug Dosing Est GFR ( Amer) Est GFR (Non-Af Amer) BUN/Creatinine Ratio Glucose POC Glucose 136 H 154 H Calcium Vitamin B12 Folate Tacrolimus PG Care Time/CCT Total # of Minutes Spent Total Time Spent with Patient: Total time spent is greater than 50% in coordination of care (as documented) at patient's floor/unit and/or counseling patient: Coding Level of Care Code 39973 SUB INP/OBS CARE 3/50MIN Diagnoses Acute respiratory failure with hypoxia J96.01 Diabetes mellitus with neurological manifestations, uncontrolled E11.49; E11.65 Stage III chronic kidney disease N18.30 MGUS (monoclonal gammopathy of unknown significance) D47.2 Liver transplant recipient Z94.4 Lumbar vertebral fracture S32.009A DVT prophylaxis Z29.9 COVID-19 U07.1 Influenza A J10.1 Primary biliary cirrhosis K74.3 Volume overload E87.70 Pancytopenia D61.818
[2022-11-05] MEDS: LANTUS PER UNIT CHARGE SQ SCH (21:29)
[2022-11-06] MEDS: ALBUT/IPRATROP 3MG/0.5MG NEB 3 ML VIAL NEB SCH ×4 (05:38→19:57)
[2022-11-06 06:56] LABS: BUN Creatinine Ratio 16.8 (10-20); Calcium 7.9 mg/dl (8.5-10.1); Creatinine Clr Calc Pharmacy 19.9 ml/min; Est GFR (African American) 19.4 ml/min; Est GFR (Non-African American) 16.7 ml/min; Potassium 4.4 mmol/L (3.5-5.1)
[2022-11-06 07:08] LABS: Reticulocyte % 2.4 % (0.5-2.0); Reticulocytes # 0.06 10^6/uL (0.02-0.10)
--- NOTE | 2022-11-06 07:29 | Consultation ---
Date of Consultation November 06, 2022 Assessment & Plan (1) Pancytopenia: Patient does have a longstanding normocytic anemia. B12 and folic acid levels are currently stable, iron percent saturation was 29% on September 01 with a ferritin of 184 at that time. Ferritin is risen to 541 during this admission reflecting an element of acute phase reaction. There do not seem to be any classic nutritional deficiencies. Copper level is pending and will be reviewed when available. Platelets remain triple digits with long standing variable thrombocytopenia not dramatically changed from previous. She has had a more fundamental drop in her neutrophil count but seems to be stabilizing in the 500 since - 600 range th'sere. HIV and CMV screens are also pending. Cytopenias are probably multifactorial. COVID-19 infection has almost certainly exacerbated the previous cytopenias. Her chronic renal insufficiency accounts in part for the chronic anemia. With the vascular alterations following liver transplant, spleen is milddly enlarged on previous imaging and there may be a mild element of splenic sequestration. Tacrolimus can have variable impacts with both cellular excess and cytopenias associated with that. She has had a previous mild plasmacytosis in the bone marrow from 2014 though interestingly the 2019 bone marrow did not show that and her M spike is no longer detectable. 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 These could precede age genetic instability of the stem cell compartment. She is only moderately neutropenic and thus at intermediate risk for infection though I would certainly approach any new fever spikes aggressively as neutropenic fever. We await HIV and CMV screens and if either of those are positive (CMV as a positive PCR) we will need to address those separately In the short-term, otherwise, I think we could probably monitor her counts for now. She does not require transfusion and does not seem to be threatened at this time with infectious issues. It may take some weeks for things to recover more completely from COVID-19 but so long as the numbers stay at the current levels are rising without any new dramatic issues of infection or hemostasis, it may be more prudent to simply let the COVID19 impact run its course. For the longer term, however, I think it would be worthwhile for her to reconvene with h er transplant team with particular respect to what degree the tacrolimus may contribute to her current issues and they may need to consider either dose alteration or another agent for rejection prophylaxis. An LDH has been sent and I see that that has been variably elevated in the past but if that were markedly elevated and reticulocyte count were markedly elevated, we may need to see about whether there is a microangiopathic process brewing related to the tacrolimus. I have asked pathology to review the peripheral smear for any evidence of increased schistocytes. There is also the possibility of a secondary lymphoproliferative disorder in smoldering development in the context of tacrolimus immunosuppression. It may be worthwhile to consider a semielective repeat marrow aspiration biopsy particularly if we do not see recovery to good levels. That might also, however, be better coordinated with her [facility] team where they would have access to more sophisticated marrow analysis and also to a hematology team more accustomed to dealing with the specific nuances of post transplant marrow function alteration. (2) MGUS (monoclonal gammopathy of unknown significance): Historic monoclonal IgG lambda M spike as high as 1.7 g/dL in 2018 though the M spike is no longer detectable on current studies. 2015 marrow did show low- level plasmacytosis but that was not seen on her 2019 marrow. Traer and lambda light chains remain elevated with a mild excess free light chain ratio but the more parallel elevations in both subspecies is more reflective of decreased renal excretion than of a dramatically asymmetric production. Abdominal/pelvic CT imaging and chest x-ray done in recent months do not indicate any major lytic bone lesions. Overall whatever clonal plasma cell process was behind the MGUS presenting in 2014, it certainly seems to have stabilized in the interim perhaps during steroid administration in the first months after her liver transplant. Would certainly be worthwhile monitoring her SPEP and kappa/lambda light chains from time to time but from the perspective of those numbers, there does not seem to be any immediate threat. More generally as discussed separately, the pancytopenia raises a number of questions as to alteration of marrow function and a marrow aspiration biopsy might be useful from that perspective and incid entally give an additional opportunity for assessment of plasma cell population and in cytogenetics (3) Liver transplant recipient: While there are no specific indications of issues of major liver dysfunction or rejection, as discussed separately there are a number of indirect concerns over her CBC and how that may or may not relate to direct tacrolimus toxicity as well as concerns over the potential indirect impacts of her immunosuppression. Plan 1. Acute issues may largely relate to COVID19 and given that she seems to be both clinically recovering and numerically stabilizing, in the very short-term can probably simply observe. Would approach any fevers as neutropenic fever unless/until her neutrophils are consistently over 1000. Any unusual hemostasis issues will warrant immediate reassessment as well 2. While there does not seem to be a florid microangiopathic process, await retic count, LDH, and pathologist review for schistocytes and if there is concern raised there we may need to more acutely address possible tacrolimus impact 3. Anemia is multifactorial including renal associated anemia. If as other factors stabilize this remains long-term, there could be some consideration to the use of MELANI's on that basis 4. 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 She did have a previous MGUS/low-level plasma cell dyscrasia which is now much less pronounced currently both by serology and by the 2020 marrow. Nevertheless, in the larger context of pancytopenia with multiple potential issues including tacrolimus induced low-level lymphoproliferative disorder, there could be some consideration for repeat marrow aspiration biopsy especially if we see a failure of the neutrophils and platelets to recover/maintain themselves in good range. This would be a semielective procedure and may be better coordinated with the follow-up with the liver transplant team and the input from the hematology team at [facility] much more specifically accustomed to dealing with post transplant CBC alterations 5. Would suggest, therefore, that she reconvene with her [facility] transplant team at some point post discharge to review the overall situation with the strong suggestion that their hematology colleagues be incorporated into that assessment with that multidisciplinary team coordinating appropriate further diagnostics with or without marrow aspiration/biopsy and as well assure that we are optimizing her rejection prophylaxis 7 if pending labs show additional concerns, particularly pathologist review of the smear/LDH indicating any element of MAHA, any significant copper deficiency, or any indication of HIV or CMV infection, we will address those more immediately. History of Present Illness Reason for Consultation: Patient is status post 2018 liver transplant with longstanding issues of cytopenias admitted with COVID19 and an exacerbation of her neutropenia in particular. Attending Physician: Abhi Ramey History of Present Illness Patient has been followed by hematology here since 2014 when she presented with an IgG lambda monoclonal protein with an M spike of 1.5 g/dL.. Initial bone marrow apparently showed 5% plasma cells but there were no lytic lesions or other stigmata of multiple myeloma and she was followed expectantly. M spike reached 1.7 g/dL in August, but interestingly has not been detected on recent serum protein electrophoresis including 1 on 10/15/2022 Follow-up here in 2019 when there were issues of more pancytopenia included a repeat bone marrow aspiration biopsy. At that time there was no plasma cell population described, the bone marrow was normocellular with trilineage hematopoiesis and no specific signs of myelodysplasia. 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 As above, patient had a liver transplant in 2017 and continues on tacrolimus for that. She is most recently seen in the transplant group in August who felt she was doing well. She does also have chronic kidney disease stage III. She has been persistently anemic going back to 2016 with hemoglobins generally in the range of 8-9 though at times as low as 7.1. She has had a variable thrombocytopenia ranging from 49,000-164,000 over the same time. Though generally she is in the high 80s to very low 100s She has had variable lymphopenia though most recently lymphocytes have been for the most part normal except acutely after the COVID-19 infection when they dipped to 0.2 though they have already recovered 1.23 as of 11/05/2022 neutrophils have been variable Though for the most part between May, and May, they have been in normal range. There is been variable neutropenia going back to the beginning of September with a francisca of 0.5 on 11/04/2022 but back up modestly to 0.6 on 11/05/2022 Other than the COVID19 she has not had any major infectious symptomatology. She has not had unusual bruising or bleeding. She does think she is recovering relatively well from symptoms currently. Allergies Allergy/AdvReac Type Severity Reaction Status Date / Time Iodinated Contrast Media Allergy Intermediate Sneezing Verified 10/31/22 13:36 and breaks out into a rash Penicillins Allergy Intermediate Hives Verified 10/31/22 13:36 metformin Allergy Unknown Unknown Verified 10/31/22 13:36 Home Medications Medication Instructions Recorded Confirmed Type lancets 33 gauge (Field Squareduch Delica #100 ea 08/23/20 10/31/22 Rx Plus Lancet) pen needle, diabetic 32 gauge x #360 ea 04/04/21 10/31/22 Rx 5/32" (BD Ultra-Fine Leilani Pen Needle) insulin glargine 100 unit/mL (3 24 unit subcut QPM 06/09/21 10/31/22 History mL) subcutaneous pen (Lantus Solostar U-100 Insulin) blood sugar diagnostic (OneTouch #100 ea 06/19/21 10/31/22 Rx Verio test strips) amlodipine 5 mg tablet (Norvasc) 5 mg PO QAM #30 tabs 10/16/22 10/31/22 Rx famotidine 20 mg tablet 20 mg PO DAILY #30 tabs 10/16/22 10/31/22 Rx sodium bicarbonate 650 mg tablet 650 mg PO BID #60 tabs 10/16/22 10/31/22 Rx albuterol sulfate 90 mcg/actuation 2 inh inhalation Q6H PRN shortness 10/23/22 10/31/22 Rx aerosol inhaler of breath or wheezing #8.5 grams calcitriol 0.25 mcg capsule 0.25 mcg PO DAILY 10/23/22 10/31/22 History solifenacin 5 mg tablet 5 mg PO DAILY 10/23/22 10/31/22 History tacrolimus 1 mg capsule, 1 mg PO .COMPLEX #270 caps 10/28/22 10/31/22 Rx immediate-release Patient History Medical History Anemia of chronic disease Bilateral foot-drop CKD (chronic kidney disease) stage 4, GFR 15-29 ml/min COPD (chronic obstructive pulmonary disease) Degenerative disc disease, lumbar Diabetic neuropathy Esophageal varices GERD (gastroesophageal reflux disease) Hypertension 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) Lumbar pain with radiation down both legs MGUS (monoclonal gammopathy of unknown significance) Osteoarthritis Osteopenia Peripheral neuropathy Primary biliary cirrhosis Proteinuria Right patella fracture SARS-CoV-2 positive Urinary incontinence, urge Vitamin D deficiency Surgical History History of section X 2 History of colonoscopy History of liver transplant (10/13/18) History of lumbar laminectomy for spinal cord decompression (04/22/21) L3-L5 laminectomy History of tonsillectomy History of tooth extraction History of total abdominal hysterectomy and bilateral salpingo-oophorectomy Liver transplant recipient [facility] 10/13/18 Nasal polyp X 3 REMOVED Family History Unknown Adopted Social History Smoking Status: Never smoker Second Hand Exposure: No; Hx Alcohol Use: No Hx Substance Use: No Preferred Language: [place] Communication Ability: Effective Visual Impairment: No Limitations Hearing Ability: Hard of Hearing Group Manager Required: No Beliefs That Will Affect Care: None marital status: Current Living Situation: Spouse Current Living Situation Comment: Lives at home with , son, and daughter current occupational status: employed How many Children do You have: 3 Feels Safe at Home: Yes Childhood Exposure to Second-Hand Smoke: No caffeine: Yes during the past year weight has: remained stable Dental Care, Regularly: No Physical Activity Frequency: Daily Seatbelt Use: always Sunscreen Use: No Assistive Devices: Cane Physical Exam Physical Exam: Vital signs are stable, oxygen saturations 97% on room air, she is afebrile with a temperature of 37 She is sitting up comfortably in bed showing no respiratory or other distress at this time. She is able to converse in normal fashion and seems to have fully intact cognitive function. Lungs are currently showing only mild scattered wheezes and rare rhonchi with overall relative good air exchange in all zones Heart rhythm is rate without pathological murmur Her abdomen is soft nontender without clear mass or mechanically There is no pathologic adenopathy in the cervical supraclavicular or axillary regions Skin shows no unusual bruising or petechiae Neurologic exam is nonfocal Results & Data ([facility]) Vital Signs (Past 12 Hours) Vital Signs Temp Pulse Pulse Resp BP Pulse Ox O2 Del Method 11/06/22 05:40 80 18 97 Room Air 11/06/22 02:52 37.0 C 87 20 139/65 96 Room Air 11/05/22 23:00 89 11/05/22 20:25 Room Air 11/05/22 22:52 36.8 C 81 16 142/78 H 97 Room Air 11/05/22 19:45 82 18 97 Room Air FiO2 01/06/23 05:40 11/06/22 02:52 11/05/22 23:00 11/05/22 20:25 11/05/22 22:52 11/05/22 19:45 21 Laboratory Results Abnormal lab results 11/03/22 11/05/22 11/05/22 Range/Units 07:59 07:41 07:54 WBC 2.22 L (4.8-10.8) K/ul RBC 2.65 L (3.93-5.22) M/uL Hgb 8.2 L (12.0-16.0) g/dl Hct 24.6 L (34.1-44.9) % RDW Std Deviation 50.4 H (36.4-46.3) fL RDW Coeff of Paty 14.7 H (11.5-14.5) % Plt Count 110 L (130-400) K/uL Reticulocyte % (Auto) (0.5-2.0) % Neut # (Auto) 0.60 L* (1.4-6.5) K/uL Waller # (Auto) 0.23 L (0.24-0.82) K/uL Immature Gran # (Auto) 0.08 H (0.00-0.02) K/uL Chloride (98-107) mmol/L BUN (6-23) mg/dl Creatinine (0.6-1.2) mg/dl Glucose (70-99(Fasting)) mg/dl POC Glucose 159 H (70-99) mg/dl Calcium (8.5-10.1) mg/dl Lactate Dehydrogenase (86-244) U/L Vitamin B12 (180-914) pg/ml Tacrolimus 4.5 L mcg/L 11/05/22 11/05/22 11/05/22 Range/Units 07:54 07:54 11:38 WBC (4.8-10.8) K/ul RBC (3.93-5.22) M/uL Hgb (12.0-16.0) g/dl Hct (34.1-44.9) % RDW Std Deviation (36.4-46.3) fL RDW Coeff of Paty (11.5-14.5) % Plt Count (130-400) K/uL Reticulocyte % (Auto) (0.5-2.0) % Neut # (Auto) (1.4-6.5) K/uL Waller # (Auto) (0.24-0.82) K/uL Immature Gran # (Auto) (0.00-0.02) K/uL Chloride 110 H (98-107) mmol/L BUN 47 H (6-23) mg/dl Creatinine 2.56 H (0.6-1.2) mg/dl Glucose 149 H (70-99(Fasting)) mg/dl POC Glucose 115 H (70-99) mg/dl Calcium 8.0 L (8.5-10.1) mg/dl Lactate Dehydrogenase (86-244) U/L Vitamin B12 1012 H (180-914) pg/ml Tacrolimus mcg/L 11/05/22 11/05/22 11/06/22 Range/Units 16:23 20:07 05:57 WBC (4.8-10.8) K/ul RBC (3.93-5.22) M/uL Hgb (12.0-16.0) g/dl Hct (34.1-44.9) % RDW Std Deviation (36.4-46.3) fL RDW Coeff of Paty (11.5-14.5) % Plt Count (130-400) K/uL Reticulocyte % (Auto) (0.5-2.0) % Neut # (Auto) (1.4-6.5) K/uL Waller # (Auto) (0.24-0.82) K/uL Immature Gran # (Auto) (0.00-0.02) K/uL Chloride 111 H (98-107) mmol/L BUN 49 H (6-23) mg/dl Creatinine 2.92 H D (0.6-1.2) mg/dl Glucose 149 H (70-99(Fasting)) mg/dl POC Glucose 136 H 154 H (70-99) mg/dl Calcium 7.9 L (8.5-10.1) mg/dl Lactate Dehydrogenase (86-244) U/L Vitamin B12 (180-914) pg/ml Tacrolimus mcg/L 11/06/22 11/06/22 11/06/22 Range/Units 05:57 05:57 07:02 WBC (4.8-10.8) K/ul RBC (3.93-5.22) M/uL Hgb (12.0-16.0) g/dl Hct (34.1-44.9) % RDW Std Deviation (36.4-46.3) fL RDW Coeff of Paty (11.5-14.5) % Plt Count (130-400) K/uL Reticulocyte % (Auto) 2.4 H (0.5-2.0) % Neut # (Auto) (1.4-6.5) K/uL Waller # (Auto) (0.24-0.82) K/uL Immature Gran # (Auto) (0.00-0.02) K/uL Chloride (98-107) mmol/L BUN (6-23) mg/dl Creatinine (0.6-1.2) mg/dl Glucose (70-99(Fasting)) mg/dl POC Glucose 162 H (70-99) mg/dl Calcium (8.5-10.1) mg/dl Lactate Dehydrogenase 385 H (86-244) U/L Vitamin B12 (180-914) pg/ml Tacrolimus mcg/L Diagnostic Findings Chest X-Ray 10/31/22 12:56 XR chest 1V portable CLINICAL HISTORY: Sepsis COMPARISON STUDY: Chest radiograph October 11, 2022. FINDINGS: Patient is rotated. There is no pneumothorax. Cardiomediastinal silhouette is stable. There is pulmonary vascular congestion. Hazy right basilar opacity is noted. There is apparent left basilar opacity and a possible small left pleural effusion. IMPRESSION: 1. Left basilar opacity with a suspected small left pleural effusion. Hazy right basilar opacity. This could reflect consolidation or atelectasis. Radiographic follow-up is recommended. 2. Pulmonary vascular congestion without overt pulmonary edema. ACT 112: Negative or not required by law. Electronically signed by: Omar Orlando M.D. 10/31/2022 2:35 PM Chest X-Ray 11/04/22 17:14 XR chest 1V portable CLINICAL HISTORY: b/l wheezes; ?pulm edema? TECHNIQUE: Single frontal radiograph of the chest was obtained. Comparison: Comparison is made to chest radiograph 10/31/2022 FINDINGS: No lines and tubes are seen. Cardiomegaly is noted. Airspace opacities are seen in the right upper lobe and atelectasis is noted in the right lower lobe. There is prominence and cephalization of the pulmonary vasculature. No evidence of pleural effusion or pneumothorax. IMPRESSION: 1. Cardiomegaly and mild pulmonary edema. 2. Right upper lobe airspace opacity likely reflects pneumonia versus less likely alveolar edema. ACT 112: Negative or not required by law. Electronically signed by: Kervin Augustin M.D. 11/04/2022 9:24 PM Venous Doppler Study 11/04/22 17:15 US venous doppler LE BI CLINICAL HISTORY: prolonged immobility, edema; r/o DVT TECHNIQUE: Bilateral lower extremity real-time compression venous ultrasound with Color Doppler imaging. Utilizing real-time ultrasonic imaging multiple real time high-resolution ultrasonic images with compression and noncompression maneuvers of the deep venous system in addition to color doppler imaging were performed from the common femoral vein through the proximal calf veins. COMPARISON: None available at the time of this dictation. FINDINGS: Currently there is normal compressibility of the deep venous system from the common femoral vein through the proximal calf veins. Limited of the left calf veins as well as the right distal femoral vein. Right posterior tibial and peroneal veins were not visualized. Impression: Limited exam without evidence of deep venous thrombus. ACT 112: Negative or not required by law. Electronically signed by: Kervin Augustin M.D. 11/04/2022 9:21 PM PG Care Time/CCT Total # of Minutes Spent Total Time Spent with Patient: Total time spent is greater than 50% in coordination of care (as documented) at patient's floor/unit and/or counseling patient: Coding Level of Care Code New Pt INP/OBS CONSULT LVL 4, 60 MIN Patient Type New Medical Decision Making High Complexity Diagnoses Pancytopenia D61.818 MGUS (monoclonal gammopathy of unknown significance) D47.2 Liver transplant recipient Z94.4
[2022-11-06] MEDS: INSULIN ASPART PER UNIT SC SCH ×4 (08:00→20:38)
[2022-11-06] MEDS: FAMOTIDINE 20 MG TAB PO SCH (09:10)
[2022-11-06] MEDS: SODIUM BICARBONATE 650 MG TAB PO SCH ×2 (09:10→20:40)
[2022-11-06] MEDS: amLODIPine BESYLATE 5 MG TAB PO SCH (09:11)
[2022-11-06] MEDS: SOLIFENACIN SUCCINATE 5 MG PO SCH (09:11)
[2022-11-06] MEDS: CALCITRIOL 0.25 MCG CAPSULE PO SCH (09:11)
[2022-11-06] MEDS: HEPARIN SOD 5,000 UNIT/0.5 ML VIAL SQ SCH ×2 (09:11→20:38)
[2022-11-06] MEDS: CEFEPIME 1,000 MG in SYRINGE 0 ML IV SCH ×2 (09:18→20:40)
[2022-11-06] MEDS: TACROLIMUS 1 MG CAP PO SCH ×2 (09:22→20:40)
--- NOTE | 2022-11-06 12:10 | Ultrasound Report ---
US renal/blad retro comp HISTORY: 62 years-old Female MADELEINE acute kidney injury COMPARISON: Renal ultrasound 10/13/2022 TECHNIQUE: Multiple real-time sonographic images of the kidneys and urinary bladder were obtained ass essing grayscale appearance and color flow FINDINGS: The right kidney measures 10.6 cm in length and demonstrates no renal calculi, hydronephrosis or susp icious mass lesion. The left kidney measures 10.8 cm in length and demonstrates no renal calculi, hydronephrosis or suspi cious mass lesion. 1.1 cm cyst within the inferior pole left kidney. The study is limited secondary to patient body habitus and subcutaneous edema of the abdominal wall. Partial distention of the urinary bladder. Ureteral jets not identified. IMPRESSION: Limited exam as above. No renal calculi or hydronephrosis identified. ACT 112: Negative or not required by law. The above report was generated using voice recognition software. It may contain grammatical, syntax o r spelling errors. Electronically signed by: Timbo Sanchez M.D. 11/06/2022 12:09 PM
[2022-11-06 15:39] LABS: Appearance Urine Cloudy (Clear); Bacteria Urine Automated Negative (Negative); Bilirubin Urine Negative (Negative); Blood Urine 2+ (Negative); Color Urine Yellow; Epithelial Cell Urine Auto >30 /lpf (0-5); Glucose Urine UA 1+ (Negative); Ketones Urine Trace (Negative); Leukocyte Esterase Urine Negative (Negative); Nitrite Urine Negative (Negative); Protein Urine 4+ (Negative); Specific Gravity Urine 1.019 (1.000-1.030); Urobilinogen Urine Negative (Negative); pH Urine 5.5 (4.5-7.5)
--- NOTE | 2022-11-06 15:49 | Nephrology Consultation ---
Date of Consultation November 06, 2022 Assessment & Plan (1) MADELEINE (acute kidney injury): Non-oliguric. Creatinine stable on repeat testing this afternoon. Electrolytes acceptable. I suspect the rise in creatinine was related to intravascular volume depletion in the setting of diuretic use. Kidneys are unobstructed. UA notable of r4+ protein, glucose, ketones, and blood. Microscopy +WBC, RBC, and hyaline casts. Clinical presentation is very atypical for GN. AIN unlikely. Peripheral smear did not demonstrate evidence of microangiopathy. Diuretics have been held to encourage a slightly even fluid balance. Additional diuretics can be provided as needed to encourage slightly negative but avoid aggressive diuresis. Continue NaHCO3 replacement as ordered. Document strict I/O's and repeat metabolic profile tomorrow AM. (2) CKD (chronic kidney disease) stage 4, GFR 15-29 ml/min: Baseline creatinine ~2.5 mg/dL. Nephrotic range proteinuria. Notable history of MADELEINE requiring SHEARING MACHINE TENDER following OLT. Thankfully there is no emergent indication for dialysis at this time. Potential future indications were reviewed. Rhona will require close follow up with her primary act tutor, Dr. Acosta. She has evidence of advanced and progressive kidney dysfunction. I cannot exclude CNI nephropathy for either her acute or chronic injury. If she has evidence of progressive nephropathy, biopsy may be considered in the future but certainly not emergently. Due to recent hyperkalemia and multiple episodes of MADELEINE, she is not currently a candidate for CELSA/ARB therapy. (3) Pancytopenia: Hematology consultation appreciated. Certainly a component of anemia of chronic disease associated with kidney dysfunction but given the complexity of her condition, I will defer management to hematology. (4) Volume overload: Rhona is retaining fluid related to underlying advanced kidney dysfunction. I discussed this with her. She is hypoalbuminemic and in acute illness she has increased TBW but decreased EAV complicated by CNI use. Continue gentle diuresis and low sodium diet. (5) Influenza A: Tamiflu dosed for kidney dysfunction. Q 12 hour cefepime reasonable but if creatinine continues to rise this may be excessive for kidney dysfunction. (6) Liver transplant recipient: Tacro level 4.5 acceptable but I still cannot exclude potential underlying CNI nephropathy. Noted recent progression of CKD and admission last month with hyperkalemia. I would avoid adjusting tacro dosing at this time pending monitoring and close follow up with her transplant program. Thankfully, labs demonstrate good liver allograft function. History of Present Illness Reason for Consultation: MADELEINE/CKD Requesting Physician: Abhi Ramey Attending Physician: Abhi Ramye History of Present Illness Mrs. Rhona Hendricks is a 62 year-old female with CKD IV A3. Baseline creatinine has been ~2.5 mg/dL. 24 hour urine protein in October measured at 3.4 grams. Rhona follows with Dr. Acosta of [facility] for her CKD. CKD has been attributed to DKD and a history of MADELEINE. Medical history is notable for end- stage liver disease attributed to primary biliary cirrhosis. Rhona has a functional allograft s/p orthotopic liver transplant in 2018. She has chronic cytopenias following transplant and a history of a MGUS. She has had an extensive evaluation for this in the past including bone marrow biopsy in 2014 and 2019. Most recently, serologic evaluation failed to demonstrate an M spike. There was concern for potential underlying secondary lymphoproliferative disorder in the past. Comprehensive consultation provided by Dr. Brito at [facility] was reviewed this AM. At this time, no additional evaluation is planned. Rhona has had longstanding insulin dependent type II diabetes mellitus. She had recently tested positive for COVID. Rhona presented to [facility] on October 31 for evaluation of shortness of breath. She was admitted with hypoxic respiratory distress. She tested + for influenza A on admission. CXR demonstrating a right lower lobe infiltrate. She was weaned off BIPAP and was resting comfortably on room air this morning during my assessment. I was contacted by Dr. Becerra for consultation regarding rise in serum creatinine to 2.9 mg/dL. Rhona remains non-oliguric. She describes notable persistent fluid retention in her arms and legs. She was upset that her diuretic was held this morning. She received 1 mg of Bumex on the fourth, and 2 mg of Bumex yesterday. Serum creatinine yesterday 2.56 mg/dL and 2.9 mg/dL this morning. She is being treated with Cefepime 1 gram q 12 hours. She remains on tacrolimus per her home regimen with a recent tacrolimus level of 4.5. TTE was obtained demonstrating hyperdynamic function with an LVEF of 65-70%. There were no notable wall motion abnormalities. Mild LVH noted with no significant valvular heart disease. Peripheral smear did not demonstrate any schistocytes or evidence of a microangiopathic process. Rhona was admitted to [facility] last month with hyperkalemia. Renal US obtained at that time demonstrating a few cysts in the left kidney. Allergies Allergy/AdvReac Type Severity Reaction Status Date / Time Iodinated Contrast Media Allergy Intermediate Sneezing Verified 10/31/22 13:36 and breaks out into a rash Penicillins Allergy Intermediate Hives Verified 10/31/22 13:36 metformin Allergy Unknown Unknown Verified 10/31/22 13:36 Home Medications Medication Instructions Recorded Confirmed Type lancets 33 gauge (OneTouch Delica #100 ea 08/23/20 10/31/22 Rx Plus Lancet) pen needle, diabetic 32 gauge x #360 ea 04/04/21 10/31/22 Rx 5/32" (BD Ultra-Fine Leilani Pen Needle) insulin glargine 100 unit/mL (3 24 unit subcut QPM 06/09/21 10/31/22 History mL) subcutaneous pen (Lantus Solostar U-100 Insulin) blood sugar diagnostic (OneTouch #100 ea 06/19/21 10/31/22 Rx Verio test strips) amlodipine 5 mg tablet (Norvasc) 5 mg PO QAM #30 tabs 10/16/22 10/31/22 Rx famotidine 20 mg tablet 20 mg PO DAILY #30 tabs 10/16/22 10/31/22 Rx sodium bicarbonate 650 mg tablet 650 mg PO BID #60 tabs 10/16/22 10/31/22 Rx albuterol sulfate 90 mcg/actuation 2 inh inhalation Q6H PRN shortness 10/23/22 10/31/22 Rx aerosol inhaler of breath or wheezing #8.5 grams calcitriol 0.25 mcg capsule 0.25 mcg PO DAILY 10/23/22 10/31/22 History solifenacin 5 mg tablet 5 mg PO DAILY 10/23/22 10/31/22 History tacrolimus 1 mg capsule, 1 mg PO .COMPLEX #270 caps 10/28/22 10/31/22 Rx immediate-release Patient History Medical History Anemia of chronic disease Bilateral foot-drop CKD (chronic kidney disease) stage 4, GFR 15-29 ml/min COPD (chronic obstructive pulmonary disease) Degenerative disc disease, lumbar Diabetic neuropathy Esophageal varices GERD (gastroesophageal reflux disease) Hypertension 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) Lumbar pain with radiation down both legs MGUS (monoclonal gammopathy of unknown significance) Osteoarthritis Osteopenia Peripheral neuropathy Primary biliary cirrhosis Proteinuria Right patella fracture SARS-CoV-2 positive Urinary incontinence, urge Vitamin D deficiency Surgical History History of section X 2 History of colonoscopy History of liver transplant (10/13/18) History of lumbar laminectomy for spinal cord decompression (04/22/21) L3-L5 laminectomy History of tonsillectomy History of tooth extraction History of total abdominal hysterectomy and bilateral salpingo-oophorectomy Liver transplant recipient [facility] 10/13/18 Nasal polyp X 3 REMOVED Family History Unknown Adopted Social History Smoking Status: Never smoker Second Hand Exposure: No; Hx Alcohol Use: No Hx Substance Use: No Preferred Language: Bruneian Communication Ability: Effective Visual Impairment: No Limitations Hearing Ability: Hard of Hearing Procurement Internship Required: No Beliefs That Will Affect Care: None marital status: Current Living Situation: Spouse Current Living Situation Comment: Lives at home with , son, and daughter current occupational status: employed How many Children do You have: 3 Feels Safe at Home: Yes Childhood Exposure to Second-Hand Smoke: No caffeine: Yes during the past year weight has: remained stable Dental Care, Regularly: No Physical Activity Frequency: Daily Seatbelt Use: always Sunscreen Use: No Assistive Devices: Cane Review of Systems Review of Systems: All systems reviewed & are unremarkable except as noted in HPI & below Cardiovascular: + edema; no dyspnea and no lightheadedness Physical Exam Constitutional: well developed and + obese; no acute distress Eyes: no scleral abnormality and no corneal abnormality Neck: normal visual inspection and trachea midline Respiratory: normal respiratory effort and + tachypneic Auscultation: + rhonchi Cardiovascular: Rate/Rhythm: + tachycardic Heart Sounds: normal S1 and normal S2 Extremities: + edema Musculoskeletal: Extremities: no cyanosis and no clubbing Skin: normal turgor; no jaundice Neurologic: Motor/Sensory: no tremor and no asterixis Psychiatric: Orientation: alert and oriented x 3 Results & Data ([facility]) Vital Signs (Past 12 Hours) Vital Signs Temp Pulse Pulse Resp BP Pulse Ox O2 Del Method 11/06/22 15:27 90 20 93 Room Air 11/06/22 15:06 84 11/06/22 12:13 36.8 C 84 19 134/59 L 99 Room Air 11/06/22 08:00 Room Air 11/06/22 08:00 83 11/06/22 07:57 36.8 C 84 19 139/73 96 Room Air 11/06/22 05:40 80 18 97 Room Air O2 Flow Rate 11/06/22 15:27 11/06/22 15:06 11/06/22 12:13 11/06/22 08:00 6 11/06/22 08:00 11/06/22 07:57 11/06/22 05:40 Laboratory Results Laboratory Results - last 24 hr 11/05/22 11/06/22 11/06/22 20:07 05:57 05:57 Reticulocyte % (Auto) Reticulocyte # Peripher Smr Path Cons Sodium 141 Potassium 4.4 Chloride 111 H Carbon Dioxide 25 Anion Gap 5 BUN 49 H Creatinine 2.92 H D Est Cr Clr Drug Dosing 19.9 Est GFR ( Amer) 19.4 Est GFR (Non-Af Amer) 16.7 BUN/Creatinine Ratio 16.8 Glucose 149 H POC Glucose 154 H Calcium 7.9 L Total Bilirubin AST ALT Alkaline Phosphatase Lactate Dehydrogenase Total Creatine Kinase Total Protein Albumin Globulin Albumin/Globulin Ratio Urine Color Urine Appearance Urine pH Ur Specific Coyote Urine Protein Urine Glucose (UA) Urine Ketones Urine Blood Urine Nitrite Urine Bilirubin Urine Urobilinogen Ur Leukocyte Esterase Urine WBC (Auto) Urine RBC (Auto) U Hyaline Cast (Auto) U Epithel Cells (Auto) Urine Bacteria (Auto) Ur Renal Epithelial Cell CMV Specimen Source CMV Qnt PCR IU/mL CMV Qnt PCR log IU/mL HIV (1&2) Ag & Ab Conf Pending 11/06/22 11/06/22 11/06/22 05:57 05:57 05:57 Reticulocyte % (Auto) 2.4 H Reticulocyte # 0.06 Peripher Smr Path Cons Sodium Potassium Chloride Carbon Dioxide Anion Gap BUN Creatinine Est Cr Clr Drug Dosing Est GFR ( Amer) Est GFR (Non-Af Amer) BUN/Creatinine Ratio Glucose POC Glucose Calcium Total Bilirubin AST ALT Alkaline Phosphatase Lactate Dehydrogenase 385 H Total Creatine Kinase Total Protein Albumin Globulin Albumin/Globulin Ratio Urine Color Urine Appearance Urine pH Ur Specific Coyote Urine Protein Urine Glucose (UA) Urine Ketones Urine Blood Urine Nitrite Urine Bilirubin Urine Urobilinogen Ur Leukocyte Esterase Urine WBC (Auto) Urine RBC (Auto) U Hyaline Cast (Auto) U Epithel Cells (Auto) Urine Bacteria (Auto) Ur Renal Epithelial Cell CMV Specimen Source Pending CMV Qnt PCR IU/mL Pending CMV Qnt PCR log IU/mL Pending HIV (1&2) Ag & Ab Conf 11/06/22 11/06/22 11/06/22 07:02 11:39 14:40 Reticulocyte % (Auto) Reticulocyte # Peripher Smr Path Cons Sodium 143 Potassium 4.0 Chloride 113 H Carbon Dioxide 25 Anion Gap 5 BUN 48 H Creatinine 2.94 H Est Cr Clr Drug Dosing 19.8 Est GFR ( Amer) 19.3 Est GFR (Non-Af Amer) 16.6 BUN/Creatinine Ratio 16.3 Glucose 111 H POC Glucose 162 H 180 H Calcium 8.3 L Total Bilirubin 0.4 AST 33 ALT 15 Alkaline Phosphatase 53 Lactate Dehydrogenase Total Creatine Kinase 64 Total Protein 4.6 L Albumin 2.3 L Globulin 2.3 L Albumin/Globulin Ratio 1.0 Urine Color Urine Appearance Urine pH Ur Specific Coyote Urine Protein Urine Glucose (UA) Urine Ketones Urine Blood Urine Nitrite Urine Bilirubin Urine Urobilinogen Ur Leukocyte Esterase Urine WBC (Auto) Urine RBC (Auto) U Hyaline Cast (Auto) U Epithel Cells (Auto) Urine Bacteria (Auto) Ur Renal Epithelial Cell CMV Specimen Source CMV Qnt PCR IU/mL CMV Qnt PCR log IU/mL HIV (1&2) Ag & Ab Conf 11/06/22 11/06/22 11/06/22 14:40 15:18 16:52 Reticulocyte % (Auto) Reticulocyte # Peripher Smr Path Cons Sodium Cancelled Potassium Cancelled Chloride Cancelled Carbon Dioxide Cancelled Anion Gap Cancelled BUN Cancelled Creatinine Cancelled Est Cr Clr Drug Dosing Cancelled Est GFR ( Amer) Cancelled Est GFR (Non-Af Amer) Cancelled BUN/Creatinine Ratio Cancelled Glucose Cancelled POC Glucose 83 Calcium Cancelled Total Bilirubin Cancelled AST Cancelled ALT Cancelled Alkaline Phosphatase Cancelled Lactate Dehydrogenase Total Creatine Kinase Total Protein Cancelled Albumin Cancelled Globulin Cancelled Albumin/Globulin Ratio Cancelled Urine Color Yellow Urine Appearance Cloudy A Urine pH 5.5 Ur Specific Coyote 1.019 Urine Protein 4+ H Urine Glucose (UA) 1+ H Urine Ketones Trace H Urine Blood 2+ H Urine Nitrite Negative Urine Bilirubin Negative Urine Urobilinogen Negative Ur Leukocyte Esterase Negative Urine WBC (Auto) 10-30 H Urine RBC (Auto) 5-10 H U Hyaline Cast (Auto) 5-10 H U Epithel Cells (Auto) >30 H Urine Bacteria (Auto) Negative Ur Renal Epithelial Cell 0-5 CMV Specimen Source CMV Qnt PCR IU/mL CMV Qnt PCR log IU/mL HIV (1&2) Ag & Ab Conf PG Care Time/CCT Total # of Minutes Spent Total Time Spent with Patient: Total time spent is greater than 50% in coordination of care (as documented) at patient's floor/unit and/or counseling patient: Coding Level of Care Code INP/OBS CONSULT LVL 5, 80 MIN Diagnoses MADELEINE (acute kidney injury) N17.9 CKD (chronic kidney disease) stage 4, GFR 15-29 ml/min N18.4 Pancytopenia D61.818 Volume overload E87.70 Influenza A J10.1 Liver transplant recipient Z94.4
[2022-11-06 15:52] LABS: Albumin Level 2.3 gm/dl (3.4-5.0); BUN Creatinine Ratio 16.3 (10-20); Bilirubin,Total 0.4 mg/dl (0.2-1.0); Calcium 8.3 mg/dl (8.5-10.1); Creatinine Clr Calc Pharmacy 19.8 ml/min; Est GFR (African American) 19.3 ml/min; Est GFR (Non-African American) 16.6 ml/min; Globulin 2.3 gm/dl (2.5-4.0); Total Protein 4.6 gm/dl (6.0-8.3)
[2022-11-06 15:57] LABS: Renal Epithelial Cells Urine 0-5 /lpf (0-5)
--- NOTE | 2022-11-06 19:57 | Hospitalist Progress Note ---
Date of Service November 06, 2022 Assessment & Plan (1) Acute respiratory failure with hypoxia: Plan: 2nd to influenza A infection, possible bacterial superinfection/pneumonia, +/- pulmonary edema. Finished 5-day course of tamiflu. Day # 6-7/7 of cefepime for possible bacterial pneumonia. Was on BIPAP at admission; now in RA; thus, resp failure resolved. All of the above is in context of COVID infection in 10/2022. I obtained CT chest (noncontrast) today due to prolonged cough/wheezing (up to 12 months in duration per her recollection, and no prior h/o asthma/COPD/etc) - groundglass opacities and tree-in-bud opacities seen. Groundglass opacities likely due to prior COVID and/or flu. Tree-in-bud could be from aspiration?? Will have speech therapy see her for swallow evaluation. (2) Diabetes mellitus with neurological manifestations, uncontrolled: Plan: Cont lantus Cont novolog BSGs acceptable/controlled 10/2022 a1c 5% but suspect it is falsely low due to anemia (3) Stage III chronic kidney disease: Plan: with nephrotic range proteinuria. Cr baseline was <2 up until October 2022 when it climbed to >2 it has remained >2 since then now STAGE 4 with CrCl 20s saw [facility] during prior admission in 10/22 if she is developing multiple myeloma - 2nd to such? 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 follows with [facility] in [place] ([facility]). daily BMP while here. I consulted Dr Carroll today - he advises judicious, prn use of diuretics due to total body water overloaded but intra-vascular volume likely dry. Will defer on diuretics today. CMV/HIV testing pending. Renal u/s noted. Repeat u/a noted (4+ protein). need for biopsy in future if no recovery ?? appreciate Dr Carroll's consultation. (4) MGUS (monoclonal gammopathy of unknown significance): Plan: h/o such has worsening pancytopenia the pancytopenia is chronic, but cell lines gradually decreasing over last few months b12/folate wnl TSH wnl appreciate Dr Brito's consultation from hematology/oncology CMV/HIV tests sent/pending has MGUS morphed into multiple myeloma? patient has had bone marrow biopsies in the past - none in several years - may need another BMB as outpatient appreciate Dr Brito's recommendations (5) Liver transplant recipient: Plan: Patient is status post liver transplant 2018 secondary to primary biliary cirrhosis. She remains on tacrolimus for immunosuppression - level returned low (4.5). Level in 10/22 was wnl. Follows with [facility] but has not seen them in what sounds like several years??? LFTs have been wnl fortunately except scant elevation ast/alt - perhaps from volume overload vs viral vs other. INR 1.1. Cont tacrolimus 1mg HS and 2mg AM. She needs close f/u with transplant team in [facility], [place], operated by [facility] post-d/c. LFTs remain stable. (6) Lumbar vertebral fracture: Plan: Previous history lumbar compression fractures with chronic pain (7) DVT prophylaxis: Plan: heparin 5000 BID (8) COVID-19: Plan: 10/2022 - resolved d/c airborne isolation per infection control guidance cont droplet precautions due to FluA infection (9) Influenza A: Plan: some of current respiratory issues are due to such. completed course of tamiflu. cont droplet precautions. supportive care. nebs. etc. CT chest noted . (10) Primary biliary cirrhosis: Plan: as above (11) Volume overload: Plan: echo with preserved EF no valvular disease no significant diastolic dysfunction volume overload is 2nd to progressive renal dysfunction and nephrotic range proteinuria 4+ protein on previous and today's urinalysis TSH 10/22 wnl hold off on diuretics today as 2 doses of diuretics led to jump in Cr to 2.9 (12) Pancytopenia: Plan: b12/folate wnl bone marrow biopsy for definitive dx?? Dr Brito to see in consult see "MGUS" above Plan PT, OT completed and safe for d/c home with family updated pt's by phone today extensively medical complexity - very high with extensive care coordination home this weekend if CBC and BMP stable?? Admission and Anticipated Discharge Date Admission Date: October 31, 2022 Subjective cough/wheezing continue - no better, no worse than previous edema of legs about the same no fevers appetite fair at best denies chest pain or orthopnea tele overnight wnl worked with PT/OT - did well, no need for rehab post-d/c Review of Systems Review of Systems: gen - no fevers/chills cv - no cp, no orthopnea, no PND pulm - cough - mainly dry; +GALVEZ; patient states that she was told that her chronic cough - present for 1 year - was due to "reflux" GI - no pain/nausea/emesis - voiding without difficulty Physical Exam Physical Exam: gen - obese; severe cough at times; no distress neck - ?mild JVD mouth - MMM heart - RRR, s1 s2, 2/6 EMILY LSB lungs - diffuse wheezes b/l unchanged; crackles bases unchanged; no distress abd - soft NT ND BS+; no HSM ext - 2+ pitting edema - no change; pulses 2+ b/l psych - a/o x 3 Results & Data Results & Data ([facility]) Vital Signs (Past 12 Hours) Vital Signs Temp Pulse Pulse Pulse Resp BP Pulse Ox 11/06/22 16:00 36.8 C 89 18 147/78 H 97 11/06/22 15:27 90 20 93 11/06/22 15:06 84 11/06/22 12:13 36.8 C 84 19 134/59 L 99 11/06/22 08:00 11/06/22 08:00 83 11/06/22 07:57 36.8 C 84 19 139/73 96 O2 Del Method O2 Flow Rate 11/06/22 16:00 Room Air 11/06/22 15:27 Room Air 11/06/22 15:06 11/06/22 12:13 Room Air 11/06/22 08:00 Room Air 6 11/06/22 08:00 11/06/22 07:57 Room Air Laboratory Results Laboratory Results - last 24 hr 11/05/22 11/06/22 11/06/22 20:07 05:57 05:57 Reticulocyte % (Auto) Reticulocyte # Peripher Smr Path Cons Sodium 141 Potassium 4.4 Chloride 111 H Carbon Dioxide 25 Anion Gap 5 BUN 49 H Creatinine 2.92 H D Est Cr Clr Drug Dosing 19.9 Est GFR ( Amer) 19.4 Est GFR (Non-Af Amer) 16.7 BUN/Creatinine Ratio 16.8 Glucose 149 H POC Glucose 154 H Calcium 7.9 L Total Bilirubin AST ALT Alkaline Phosphatase Lactate Dehydrogenase Total Creatine Kinase Total Protein Albumin Globulin Albumin/Globulin Ratio Urine Color Urine Appearance Urine pH Ur Specific Kinta Urine Protein Urine Glucose (UA) Urine Ketones Urine Blood Urine Nitrite Urine Bilirubin Urine Urobilinogen Ur Leukocyte Esterase Urine WBC (Auto) Urine RBC (Auto) U Hyaline Cast (Auto) U Epithel Cells (Auto) Urine Bacteria (Auto) Ur Renal Epithelial Cell CMV Specimen Source CMV Qnt PCR IU/mL CMV Qnt PCR log IU/mL HIV (1&2) Ag & Ab Conf Pending 11/06/22 11/06/22 11/06/22 05:57 05:57 05:57 Reticulocyte % (Auto) 2.4 H Reticulocyte # 0.06 Peripher Smr Path Cons Sodium Potassium Chloride Carbon Dioxide Anion Gap BUN Creatinine Est Cr Clr Drug Dosing Est GFR ( Amer) Est GFR (Non-Af Amer) BUN/Creatinine Ratio Glucose POC Glucose Calcium Total Bilirubin AST ALT Alkaline Phosphatase Lactate Dehydrogenase 385 H Total Creatine Kinase Total Protein Albumin Globulin Albumin/Globulin Ratio Urine Color Urine Appearance Urine pH Ur Specific Kinta Urine Protein Urine Glucose (UA) Urine Ketones Urine Blood Urine Nitrite Urine Bilirubin Urine Urobilinogen Ur Leukocyte Esterase Urine WBC (Auto) Urine RBC (Auto) U Hyaline Cast (Auto) U Epithel Cells (Auto) Urine Bacteria (Auto) Ur Renal Epithelial Cell CMV Specimen Source Pending CMV Qnt PCR IU/mL Pending CMV Qnt PCR log IU/mL Pending HIV (1&2) Ag & Ab Conf 11/06/22 11/06/22 11/06/22 07:02 11:39 14:40 Reticulocyte % (Auto) Reticulocyte # Peripher Smr Path Cons Sodium 143 Potassium 4.0 Chloride 113 H Carbon Dioxide 25 Anion Gap 5 BUN 48 H Creatinine 2.94 H Est Cr Clr Drug Dosing 19.8 Est GFR ( Amer) 19.3 Est GFR (Non-Af Amer) 16.6 BUN/Creatinine Ratio 16.3 Glucose 111 H POC Glucose 162 H 180 H Calcium 8.3 L Total Bilirubin 0.4 AST 33 ALT 15 Alkaline Phosphatase 53 Lactate Dehydrogenase Total Creatine Kinase 64 Total Protein 4.6 L Albumin 2.3 L Globulin 2.3 L Albumin/Globulin Ratio 1.0 Urine Color Urine Appearance Urine pH Ur Specific Kinta Urine Protein Urine Glucose (UA) Urine Ketones Urine Blood Urine Nitrite Urine Bilirubin Urine Urobilinogen Ur Leukocyte Esterase Urine WBC (Auto) Urine RBC (Auto) U Hyaline Cast (Auto) U Epithel Cells (Auto) Urine Bacteria (Auto) Ur Renal Epithelial Cell CMV Specimen Source CMV Qnt PCR IU/mL CMV Qnt PCR log IU/mL HIV (1&2) Ag & Ab Conf 11/06/22 11/06/22 11/06/22 14:40 15:18 16:52 Reticulocyte % (Auto) Reticulocyte # Peripher Smr Path Cons Sodium Cancelled Potassium Cancelled Chloride Cancelled Carbon Dioxide Cancelled Anion Gap Cancelled BUN Cancelled Creatinine Cancelled Est Cr Clr Drug Dosing Cancelled Est GFR ( Amer) Cancelled Est GFR (Non-Af Amer) Cancelled BUN/Creatinine Ratio Cancelled Glucose Cancelled POC Glucose 83 Calcium Cancelled Total Bilirubin Cancelled AST Cancelled ALT Cancelled Alkaline Phosphatase Cancelled Lactate Dehydrogenase Total Creatine Kinase Total Protein Cancelled Albumin Cancelled Globulin Cancelled Albumin/Globulin Ratio Cancelled Urine Color Yellow Urine Appearance Cloudy A Urine pH 5.5 Ur Specific Kinta 1.019 Urine Protein 4+ H Urine Glucose (UA) 1+ H Urine Ketones Trace H Urine Blood 2+ H Urine Nitrite Negative Urine Bilirubin Negative Urine Urobilinogen Negative Ur Leukocyte Esterase Negative Urine WBC (Auto) 10-30 H Urine RBC (Auto) 5-10 H U Hyaline Cast (Auto) 5-10 H U Epithel Cells (Auto) >30 H Urine Bacteria (Auto) Negative Ur Renal Epithelial Cell 0-5 CMV Specimen Source CMV Qnt PCR IU/mL CMV Qnt PCR log IU/mL HIV (1&2) Ag & Ab Conf Diagnostic Findings Renal Ultrasound 11/06/22 09:01 US renal/blad retro comp HISTORY: 62 years-old Female MADELEINE acute kidney injury COMPARISON: Renal ultrasound 10/13/2022 TECHNIQUE: Multiple real-time sonographic images of the kidneys and urinary bladder were obtained assessing grayscale appearance and color flow FINDINGS: The right kidney measures 10.6 cm in length and demonstrates no renal calculi, hydronephrosis or suspicious mass lesion. The left kidney measures 10.8 cm in length and demonstrates no renal calculi, hydronephrosis or suspicious mass lesion. 1.1 cm cyst within the inferior pole left kidney. The study is limited secondary to patient body habitus and subcutaneous edema of the abdominal wall. Partial distention of the urinary bladder. Ureteral jets not identified. IMPRESSION: Limited exam as above. No renal calculi or hydronephrosis identified. ACT 112: Negative or not required by law. The above report was generated using voice recognition software. It may contain grammatical, syntax or spelling errors. Electronically signed by: Timbo Sanchez M.D. 11/06/2022 12:[address] 11/06/22 18:19 CT SCAN OF THE CHEST WITHOUT IV CONTRAST CLINICAL HISTORY: Wheezing. COMPARISON STUDY: Chest x-ray dated 11/04/2022. Abdominal CT dated 11/04/2021. TECHNIQUE: CT scan of the thorax was performed from the thoracic inlet to the upper abdomen. Images are reviewed in the axial, sagittal, and coronal planes. IV contrast was not administered for this examination as per the referring clinician. A dose lowering technique was utilized adhering to the principles of ALARA. CT DOSE: 602.71 mGy.cm FINDINGS: Thyroid: Enlarged and heterogeneous. Thoracic aorta: There is atherosclerotic calcification of the thoracic aorta, which is normal in caliber and demonstrates standard 3-vessel arch anatomy. Heart: The heart is mildly enlarged and without pericardial effusion. The coronary arteries are densely calcified. There is diminished attenuation of the cardiac blood pool as compared to the myocardium suggesting anemia. Lungs and pleural spaces: Evaluation of the lung parenchyma is modestly degraded by motion artifact. There are small pleural effusions with dependent consolidation. There is patchy groundglass consolidation seen throughout the right upper lobe. There is minimal patchy groundglass consolidation seen in the left upper lobe. Scattered foci of tree-in-bud nodularity are seen in the right lower lobe. The trachea and central airways are clear. Mediastinum: There are mildly enlarged mediastinal lymph nodes. A precarinal node measures 16 mm in short axis. Kailyn: Not well assessed without IV contrast. Axillae: There is no axillary lymphadenopathy. Upper abdomen: There is trace perihepatic ascites. The gallbladder is surgically absent. Large collateral vessels are seen in the upper abdomen. Skeletal structures: The skeletal structures are osteopenic. No lytic or blastic bony lesions are seen. There are chronic/healed right-sided rib fractures. Degenerative change is noted in the shoulders and thoracic spine. There is avascular necrosis of the right humeral head. Soft tissues: There is body wall edema. IMPRESSION: 1. Mild cardiomegaly. 2. Small pleural effusions with dependent consolidation this represents atelectasis. 3. There is patchy ground glass consolidation throughout the right upper lobe. Minimal ground glass consolidation is seen in the left upper lobe and there are tree-in-bud opacities in the right lower lobe. This could represent multifocal pneumonia and/or asymmetric pulmonary edema. Clinical correlation will be required. Radiographic follow-up to resolution is recommend. 3. Mildly enlarged mediastinal lymph nodes are nonspecific and may be reactive. 4. Avascular necrosis of the right humeral head. 5. Trace perihepatic ascites. 6. Additional findings as above. ACT 112: Negative or not required by law. Electronically signed by: Adrián Deutsch M.D. 11/06/2022 8:38 PM PG Care Time/CCT Total # of Minutes Spent Total Time Spent with Patient: Total time spent is greater than 50% in coordination of care (as documented) at patient's floor/unit and/or counseling patient: Coding Level of Care Code 56365 SUB INP/OBS CARE 3/50MIN Diagnoses Acute respiratory failure with hypoxia J96.01 Diabetes mellitus with neurological manifestations, uncontrolled E11.49; E11.65 Stage III chronic kidney disease N18.30 MGUS (monoclonal gammopathy of unknown significance) D47.2 Liver transplant recipient Z94.4 Lumbar vertebral fracture S32.009A DVT prophylaxis Z29.9 COVID-19 U07.1 Influenza A J10.1 Primary biliary cirrhosis K74.3 Volume overload E87.70 Pancytopenia D61.818
[2022-11-06] MEDS: LANTUS PER UNIT CHARGE SQ SCH (20:40)
--- NOTE | 2022-11-06 20:40 | CT Scan Report ---
CT SCAN OF THE CHEST WITHOUT IV CONTRAST CLINICAL HISTORY: Wheezing. COMPARISON STUDY: Chest x-ray dated 11/04/2022. Abdominal CT dated 11/04/2021. TECHNIQUE: CT scan of the thorax was performed from the thoracic inlet to the upper abdomen. Images are reviewed in the axial, sagittal, and coronal planes. IV contrast was not administered for this ex amination as per the referring clinician. A dose lowering technique was utilized adhering to the savanna Hickman. CT DOSE: 602.71 mGy.cm FINDINGS: Thyroid: Enlarged and heterogeneous. Thoracic aorta: There is atherosclerotic calcification of the thoracic aorta, which is normal in alfredo sebastien and demonstrates standard 3-vessel arch anatomy. Heart: The heart is mildly enlarged and without pericardial effusion. The coronary arteries are dense ly calcified. There is diminished attenuation of the cardiac blood pool as compared to the myocardium suggesting anemia. Lungs and pleural spaces: Evaluation of the lung parenchyma is modestly degraded by motion artifact. There are small pleural effusions with dependent consolidation. There is patchy groundglass consolida tion seen throughout the right upper lobe. There is minimal patchy groundglass consolidation seen in the left upper lobe. Scattered foci of tree-in-bud nodularity are seen in the right lower lobe. The t rachea and central airways are clear. Mediastinum: There are mildly enlarged mediastinal lymph nodes. A precarinal node measures 16 mm in s hort axis. Kailyn: Not well assessed without IV contrast. Axillae: There is no axillary lymphadenopathy. Upper abdomen: There is trace perihepatic ascites. The gallbladder is surgically absent. Large collat eral vessels are seen in the upper abdomen. Skeletal structures: The skeletal structures are osteopenic. No lytic or blastic bony lesions are see n. There are chronic/healed right-sided rib fractures. Degenerative change is noted in the shoulders and thoracic spine. There is avascular necrosis of the right humeral head. Soft tissues: There is body wall edema. IMPRESSION: 1. Mild cardiomegaly. 2. Small pleural effusions with dependent consolidation this represents atelectasis. 3. There is patchy ground glass consolidation throughout the right upper lobe. Minimal ground glass c onsolidation is seen in the left upper lobe and there are tree-in-bud opacities in the right lower lo be. This could represent multifocal pneumonia and/or asymmetric pulmonary edema. Clinical correlation will be required. Radiographic follow-up to resolution is recommend. 3. Mildly enlarged mediastinal lymph nodes are nonspecific and may be reactive. 4. Avascular necrosis of the right humeral head. 5. Trace perihepatic ascites. 6. Additional findings as above. ACT 112: Negative or not required by law. Electronically signed by: Adrián Deutsch M.D. 11/06/2022 8:38 PM
[2022-11-07] MEDS: ALBUT/IPRATROP 3MG/0.5MG NEB 3 ML VIAL NEB SCH (07:22)
[2022-11-07] MEDS: INSULIN ASPART PER UNIT SC SCH ×4 (08:00→21:02)
[2022-11-07] MEDS: SODIUM BICARBONATE 650 MG TAB PO SCH (08:33)
[2022-11-07] MEDS: CALCITRIOL 0.25 MCG CAPSULE PO SCH (08:34)
[2022-11-07] MEDS: amLODIPine BESYLATE 5 MG TAB PO SCH (08:34)
[2022-11-07] MEDS: SOLIFENACIN SUCCINATE 5 MG PO SCH (08:34)
[2022-11-07] MEDS: TACROLIMUS 1 MG CAP PO SCH ×2 (08:34→21:09)
[2022-11-07] MEDS: FAMOTIDINE 20 MG TAB PO SCH (08:34)
[2022-11-07] MEDS: HEPARIN SOD 5,000 UNIT/0.5 ML VIAL SQ SCH ×2 (08:35→21:02)
[2022-11-07] MEDS: CEFEPIME 1,000 MG in SYRINGE 0 ML IV SCH (08:39)
[2022-11-07 08:55] LABS: Albumin Level 2.6 gm/dl (3.4-5.0); BUN Creatinine Ratio 16.2 (10-20); Calcium 8.4 mg/dl (8.5-10.1); Creatinine Clr Calc Pharmacy 19.8 ml/min; Est GFR (African American) 19.1 ml/min; Est GFR (Non-African American) 16.5 ml/min; Phosphorus 4.4 mg/dl (2.5-4.9); Potassium 4.7 mmol/L (3.5-5.1)
[2022-11-07 08:56] LABS: Hematocrit (blood only) 25.3 % (34.1-44.9); Hemoglobin 8.2 g/dl (12.0-16.0); Mean Corpuscular Hemoglobin 29.5 pg (25.0-34.0); Mean Corpuscular Hgb Conc 32.4 g/dL (32.0-36.0); Mean Platelet Volume 10.8 fL (9.4-12.3); Platelet Count 114 K/uL (130-400); RDW Coefficient of Variation 14.5 % (11.5-14.5); RDW Standard Deviation 48.8 fL (36.4-46.3); Red Blood Count 2.78 M/uL (3.93-5.22); White Blood Count 2.15 K/ul (4.8-10.8)
[2022-11-07 08:58] LABS: Basophils # (auto) 0.01 K/uL (0-0.2); Basophils % (auto) 0.5 %; Eosinophils # (auto) 0.18 K/uL (0-0.50); Eosinophils % (auto) 8.4 %; Immature Granulocytes # (auto) 0.15 K/uL (0.00-0.02); Lymphocytes % (auto) 46.5 %; Monocytes # (auto) 0.27 K/uL (0.24-0.82); Monocytes % (auto) 12.6 %; Neutrophils # (auto) 0.54 K/uL (1.4-6.5)
[2022-11-07] MEDS: FLUTICASONE/VILANTEROL 100/25MCG 14 PUFFS/INHALER INH SCH (09:11)
--- NOTE | 2022-11-07 11:51 | Nephrology Progress Note ---
Date of Service November 07, 2022 Assessment & Plan (1) MADELEINE (acute kidney injury): Plan: * Mild MADELEINE/CKD related to intravascular volume contraction and 3rd spacing of fluid * Brisk diuresis yesterday. Patient is net - 1132 cc since admission * Hold diuretics, reduce NaHCO3 to 650 mg daily * Monitor I&O, PRP (2) CKD (chronic kidney disease) stage 4, GFR 15-29 ml/min: Plan: * Baseline Cr 2.5. CKD likely on the basis of CNI therapy for OLT (3) Pancytopenia: Plan: * Likely related to recent viral infections (COVID, influenza). Management as per Hematology (4) Influenza A: Plan: * On Tamiflu (5) Liver transplant recipient: Admission and Anticipated Discharge Date Admission Date: October 31, 2022 Subjective Ms. Hendricks was evaluated in her hospital room this morning. She c/o cough and peripheral edema but reports brisk UO Review of Systems Constitutional: no fever Eyes: no problem reported Ear, Nose, Mouth, Throat: no problem reported Respiratory: + cough; no dyspnea Cardiovascular: no chest pain Gastrointestinal: no abdominal pain, no vomiting and no diarrhea/loose stools Neurologic: no confusion Physical Exam Constitutional: not in distress Eyes: PERRL, conjunctivae normal, anicteric sclerae ENMT: external ear and nose normal, oropharynx normal Neck: trachea midline, no thyromegaly Respiratory: Auscultation: + crackles Cardiovascular: Rate/Rhythm: regular rate and regular rhythm Extremities: + edema (dependent edema of the arms and legs) Gastrointestinal (Abdomen): normal bowel sounds, soft, nontender, no hepatosplenomegaly Results & Data ([facility]) Vital Signs (Past 12 Hours) Vital Signs Temp Pulse Pulse Pulse Resp BP Pulse Ox 11/07/22 11:43 36.7 C 89 18 133/66 99 11/07/22 08:00 11/07/22 08:00 84 11/07/22 08:30 36.8 C 90 20 153/77 H 98 11/07/22 07:23 83 18 96 11/07/22 04:40 36.8 C 83 18 129/68 98 11/07/22 00:00 90 11/06/22 23:53 36.9 C 87 18 135/76 96 O2 Del Method 11/07/22 11:43 Room Air 11/07/22 08:00 Room Air 11/07/22 08:00 11/07/22 08:30 Room Air 11/07/22 07:23 Room Air 11/07/22 04:40 Room Air 11/07/22 00:00 11/06/22 23:53 Room Air Laboratory Results Laboratory Tests 10/07/22 10/11/22 10/15/22 11:20 20:30 07:57 WBC Hgb Hct Plt Count Sodium Potassium Chloride Carbon Dioxide BUN Creatinine 2.19 H 2.75 H 2.93 H 11/02/22 11/04/22 11/06/22 06:55 06:50 14:40 WBC Hgb Hct Plt Count Sodium Potassium Chloride Carbon Dioxide BUN Creatinine 2.98 H 2.69 H 2.94 H 11/07/22 11/07/22 08:18 08:18 WBC 2.15 L Hgb 8.2 L Hct 25.3 L Plt Count 114 L Sodium 142 Potassium 4.7 Chloride 111 H Carbon Dioxide 24 BUN 48 H Creatinine 2.96 H Diagnostic Findings 11/06/22 Renal US: The right kidney measures 10.6 cm in length and demonstrates no renal calculi, hydronephrosis or suspicious mass lesion. The left kidney measures 10.8 cm in length and demonstrates no renal calculi, hydronephrosis or suspicious mass lesion. 1.1 cm cyst within the inferior pole left kidney. The study is limited secondary to patient body habitus and subcutaneous edema of the abdominal wall. Partial distention of the urinary bladder. Ureteral jets not identified. 11/06/[address]: 1. Mild cardiomegaly. 2. Small pleural effusions with dependent consolidation this represents atelectasis. 3. There is patchy ground glass consolidation throughout the right upper lobe. Minimal ground glass consolidation is seen in the left upper lobe and there are tree-in-bud opacities in the right lower lobe. This could represent multifocal pneumonia and/or asymmetric pulmonary edema. Clinical correlation will be required. Radiographic follow-up to resolution is recommend. 3. Mildly enlarged mediastinal lymph nodes are nonspecific and may be reactive. 4. Avascular necrosis of the right humeral head. 5. Trace perihepatic ascites. 6. Additional findings as above. PG Care Time/CCT Total # of Minutes Spent Total Time Spent with Patient: Total time spent is greater than 50% in coordination of care (as documented) at patient's floor/unit and/or counseling patient: Coding Level of Care Code 35907 SUB INP/OBS CARE 350MIN Diagnoses MADELEINE (acute kidney injury) N17.9 CKD (chronic kidney disease) stage 4, GFR 15-29 ml/min N18.4 Pancytopenia D61.818 Influenza A J10.1 Liver transplant recipient Z94.4
--- NOTE | 2022-11-07 15:13 | Hospitalist Progress Note ---
Date of Service November 07, 2022 Assessment & Plan (1) Acute respiratory failure with hypoxia: Plan: RESOLVED. 2nd to influenza A infection, possible bacterial superinfection/pneumonia, +/- pulmonary edema. Finished 5-day course of tamiflu. Completed 7 days of cefepime for possible bacterial pneumonia. Was on BIPAP at admission; now in RA for several days. All of the above is in context of COVID infection in 10/2022. I obtained CT chest (noncontrast) due to prolonged cough/wheezing (up to 12 months in duration per her recollection, and no prior h/o asthma/COPD/etc) - groundglass opacities and tree-in-bud opacities seen. Groundglass opacities likely due to prior COVID and/or flu. Tree-in-bud could be from aspiration?? Speech therapy saw in consult; video swallow planned for Wednesday. (2) Diabetes mellitus with neurological manifestations, uncontrolled: Plan: Cont lantus Cont novolog BSGs acceptable/controlled 10/2022 a1c 5% but suspect it is falsely low due to anemia (3) Stage III chronic kidney disease: Plan: with nephrotic range proteinuria. Cr baseline was <2 up until October 2022 when it climbed to >2 it has remained >2 since then now STAGE 4 with CrCl 20s saw [facility] Nephro during prior admission in 10/22 if she is developing multiple myeloma - 2nd to such? 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 follows with geography faculty member in [place] ([facility]). daily BMP while here. [facility] Nephrology advises judicious, prn use of diuretics due to total body water overloaded but intra-vascular volume status likely dry. Will defer again on diuretics today. CMV/HIV testing pending. Renal u/s noted. Repeat u/a noted (4+ protein). need for biopsy in future if no recovery ?? appreciate nephrology consultation. (4) MGUS (monoclonal gammopathy of unknown significance): Plan: h/o such has worsening pancytopenia the pancytopenia is chronic, but cell lines gradually decreasing over last few months b12/folate wnl TSH wnl appreciate Dr Brito's consultation from hematology/oncology CMV/HIV tests sent/pending has MGUS morphed into multiple myeloma? patient has had bone marrow biopsies in the past - none in several years - may need another BMB as outpatient appreciate Dr Brito's recommendations (5) Liver transplant recipient: Plan: Patient is status post liver transplant 2018 secondary to primary biliary cirrhosis. She remains on tacrolimus for immunosuppression - level returned low (4.5). Level in 10/22 was wnl. Follows with [facility] but has not seen them in what sounds like several years??? LFTs have been wnl fortunately except scant elevation ast/alt - perhaps from volume overload vs viral vs other. INR 1.1. Cont tacrolimus 1mg HS and 2mg AM. She needs close f/u with transplant team in [facility] post-d/c. LFTs remain stable. (6) Lumbar vertebral fracture: Plan: Previous history lumbar compression fractures with chronic pain (7) DVT prophylaxis: Plan: heparin 5000 BID (8) COVID-19: Plan: 10/2022 - resolved d/c airborne isolation per infection control guidance cont droplet precautions due to FluA infection (9) Influenza A: Plan: largely resolved completed course of tamiflu. cont droplet precautions. supportive care. nebs prn. etc. (10) Primary biliary cirrhosis: Plan: as above (11) Volume overload: Plan: echo with preserved EF no valvular disease no significant diastolic dysfunction volume overload is 2nd to progressive renal dysfunction and nephrotic range proteinuria 4+ protein on urinalysis TSH 10/22 wnl hold off on diuretics today as 2 doses of diuretics led to jump in Cr to 2.9 and Cr remains 2.9 (12) Pancytopenia: Plan: b12/folate wnl bone marrow biopsy for definitive dx?? Dr Brito to see in consult see "MGUS" above Plan PT, OT completed and safe for d/c home with family updated pt's by phone 11/06/22 home on Wednesday after video swallow test by speech? Admission and Anticipated Discharge Date Admission Date: October 31, 2022 Subjective no events overnight tele wnl she reports that her cough and wheeze are improved GALVEZ improved eating fair at best denies any new complaints Review of Systems Review of Systems: gen - no fevers or chills cv - no cp, no orthopnea pulm - all pulmonary symptoms improved GI - no diarrhea, no abd pain, no nausea Physical Exam Physical Exam: gen - obese; looks better today; not coughing as much as previous visits neck - no JVD mouth - MMM heart - RRR, s1 s2, 2/6 EMILY LSB lungs - diffuse wheezes MUCH improved; crackles bases MUCH improved; airation better; no distress abd - soft NT ND BS+; no HSM ext - 2+ pitting edema - no change; pulses 2+ b/l psych - a/o x 3 Results & Data Results & [facility]) Vital Signs (Past 12 Hours) Vital Signs Temp Pulse Pulse Pulse Resp BP Pulse Ox 11/07/22 11:43 36.7 C 89 18 133/66 99 11/07/22 08:00 11/07/22 08:00 84 11/07/22 08:30 36.8 C 90 20 153/77 H 98 11/07/22 07: 83 18 96 11/07/22 04:40 36.8 C 83 18 129/68 98 O2 Del Method 11/07/22 11:43 Room Air 11/07/22 08:00 Room Air 11/07/22 08:00 11/07/22 08:30 Room Air 11/07/22 07:23 Room Air 11/07/22 04:40 Room Air Laboratory Results Laboratory Results - last 24 hr 11/06/22 11/06/22 11/06/22 05:57 14:40 14:40 WBC RBC Hgb Hct MCV MCH MCHC RDW Std Deviation RDW Coeff of Paty Plt Count MPV Immature Gran % (Auto) Neut % (Auto) Lymph % (Auto) Fleming % (Auto) Eos % (Auto) Baso % (Auto) Neut # (Auto) Lymph # (Auto) Fleming # (Auto) Eos # (Auto) Baso # (Auto) Immature Gran # (Auto) Sodium 143 Cancelled Potassium 4.0 Cancelled Chloride 113 H Cancelled Carbon Dioxide 25 Cancelled Anion Gap 5 Cancelled BUN 48 H Cancelled Creatinine 2.94 H Cancelled Est Cr Clr Drug Dosing 19.8 Cancelled Est GFR ( Amer) 19.3 Cancelled Est GFR (Non-Af Amer) 16.6 Cancelled BUN/Creatinine Ratio 16.3 Cancelled Glucose 111 H Cancelled POC Glucose Calcium 8.3 L Cancelled Phosphorus Total Bilirubin 0.4 Cancelled AST 33 Cancelled ALT 15 Cancelled Alkaline Phosphatase 53 Cancelled Total Creatine Kinase 64 Total Protein 4.6 L Cancelled Albumin 2.3 L Cancelled Globulin 2.3 L Cancelled Albumin/Globulin Ratio 1.0 Cancelled Urine Color Urine Appearance Urine pH Ur Specific Ambler Urine Protein Urine Glucose (UA) Urine Ketones Urine Blood Urine Nitrite Urine Bilirubin Urine Urobilinogen Ur Leukocyte Esterase Urine WBC (Auto) Urine RBC (Auto) U Hyaline Cast (Auto) U Epithel Cells (Auto) Urine Bacteria (Auto) Ur Renal Epithelial Cell HIV (1&2) Ag & Ab Conf NON-REACTIVE 11/06/22 11/06/22 11/06/22 15:18 16:52 20:25 WBC RBC Hgb Hct MCV MCH MCHC RDW Std Deviation RDW Coeff of Paty Plt Count MPV Immature Gran % (Auto) Neut % (Auto) Lymph % (Auto) Fleming % (Auto) Eos % (Auto) Baso % (Auto) Neut # (Auto) Lymph # (Auto) Fleming # (Auto) Eos # (Auto) Baso # (Auto) Immature Gran # (Auto) Sodium Potassium Chloride Carbon Dioxide Anion Gap BUN Creatinine Est Cr Clr Drug Dosing Est GFR ( Amer) Est GFR (Non-Af Amer) BUN/Creatinine Ratio Glucose POC Glucose 83 132 H Calcium Phosphorus Total Bilirubin AST ALT Alkaline Phosphatase Total Creatine Kinase Total Protein Albumin Globulin Albumin/Globulin Ratio Urine Color Yellow Urine Appearance Cloudy A Urine pH 5.5 Ur Specific Ambler 1.019 Urine Protein 4+ H Urine Glucose (UA) 1+ H Urine Ketones Trace H Urine Blood 2+ H Urine Nitrite Negative Urine Bilirubin Negative Urine Urobilinogen Negative Ur Leukocyte Esterase Negative Urine WBC (Auto) 10-30 H Urine RBC (Auto) 5-10 H U Hyaline Cast (Auto) 5-10 H U Epithel Cells (Auto) >30 H Urine Bacteria (Auto) Negative Ur Renal Epithelial Cell 0-5 HIV (1&2) Ag & Ab Conf 11/07/22 11/07/22 11/07/22 07:50 08:18 08:18 WBC 2.15 L RBC 2.78 L Hgb 8.2 L Hct 25.3 L MCV 91.0 MCH 29.5 MCHC 32.4 RDW Std Deviation 48.8 H RDW Coeff of Paty 14.5 Plt Count 114 L MPV 10.8 Immature Gran % (Auto) 7.0 Neut % (Auto) 25.0 Lymph % (Auto) 46.5 Fleming % (Auto) 12.6 Eos % (Auto) 8.4 Baso % (Auto) 0.5 Neut # (Auto) 0.54 L* Lymph # (Auto) 1.00 L Fleming # (Auto) 0.27 Eos # (Auto) 0.18 Baso # (Auto) 0.01 Immature Gran # (Auto) 0.15 H Sodium 142 Potassium 4.7 Chloride 111 H Carbon Dioxide 24 Anion Gap 7 BUN 48 H Creatinine 2.96 H Est Cr Clr Drug Dosing 19.8 Est GFR ( Amer) 19.1 Est GFR (Non-Af Amer) 16.5 BUN/Creatinine Ratio 16.2 Glucose 178 H POC Glucose 144 H Calcium 8.4 L Phosphorus 4.4 Total Bilirubin AST ALT Alkaline Phosphatase Total Creatine Kinase Total Protein Albumin 2.6 L Globulin Albumin/Globulin Ratio Urine Color Urine Appearance Urine pH Ur Specific Ambler Urine Protein Urine Glucose (UA) Urine Ketones Urine Blood Urine Nitrite Urine Bilirubin Urine Urobilinogen Ur Leukocyte Esterase Urine WBC (Auto) Urine RBC (Auto) U Hyaline Cast (Auto) U Epithel Cells (Auto) Urine Bacteria (Auto) Ur Renal Epithelial Cell HIV (1&2) Ag & Ab Conf 11/07/22 11:21 WBC RBC Hgb Hct MCV MCH MCHC RDW Std Deviation RDW Coeff of Paty Plt Count MPV Immature Gran % (Auto) Neut % (Auto) Lymph % (Auto) Fleming % (Auto) Eos % (Auto) Baso % (Auto) Neut # (Auto) Lymph # (Auto) Fleming # (Auto) Eos # (Auto) Baso # (Auto) Immature Gran # (Auto) Sodium Potassium Chloride Carbon Dioxide Anion Gap BUN Creatinine Est Cr Clr Drug Dosing Est GFR ( Amer) Est GFR (Non-Af Amer) BUN/Creatinine Ratio Glucose POC Glucose 182 H Calcium Phosphorus Total Bilirubin AST ALT Alkaline Phosphatase Total Creatine Kinase Total Protein Albumin Globulin Albumin/Globulin Ratio Urine Color Urine Appearance Urine pH Ur Specific Ambler Urine Protein Urine Glucose (UA) Urine Ketones Urine Blood Urine Nitrite Urine Bilirubin Urine Urobilinogen Ur Leukocyte Esterase Urine WBC (Auto) Urine RBC (Auto) U Hyaline Cast (Auto) U Epithel Cells (Auto) Urine Bacteria (Auto) Ur Renal Epithelial Cell HIV (1&2) Ag & Ab Conf PG Care Time/CCT Total # of Minutes Spent Total Time Spent with Patient: Total time spent is greater than 50% in coordination of care (as documented) at patient's floor/unit and/or counseling patient: Coding Level of Care Code 36639 SUB INP/OBS CARE 235MIN Diagnoses Acute respiratory failure with hypoxia J96.01 Diabetes mellitus with neurological manifestations, uncontrolled E11.49; E11.65 Stage III chronic kidney disease N18.30 MGUS (monoclonal gammopathy of unknown significance) D47.2 Liver transplant recipient Z94.4 Lumbar vertebral fracture S32.009A DVT prophylaxis Z29.9 COVID-19 U07.1 Influenza A J10.1 Primary biliary cirrhosis K74.3 Volume overload E87.70 Pancytopenia D61.818
[2022-11-07] MEDS: LANTUS PER UNIT CHARGE SQ SCH (21:02)
[2022-11-08] MEDS: INSULIN ASPART PER UNIT SC SCH ×4 (08:00→20:22)
[2022-11-08 08:29] LABS: Calcium 8.1 mg/dl (8.5-10.1); Creatinine Clr Calc Pharmacy 21.9 ml/min; Est GFR (African American) 21.8 ml/min; Est GFR (Non-African American) 18.8 ml/min; Potassium 4.3 mmol/L (3.5-5.1)
[2022-11-08] MEDS: FAMOTIDINE 20 MG TAB PO SCH (08:37)
[2022-11-08] MEDS: TACROLIMUS 1 MG CAP PO SCH ×2 (08:37→20:22)
[2022-11-08] MEDS: FLUTICASONE/VILANTEROL 100/25MCG 14 PUFFS/INHALER INH SCH (08:37)
[2022-11-08] MEDS: SODIUM BICARBONATE 650 MG TAB PO SCH (08:37)
[2022-11-08] MEDS: amLODIPine BESYLATE 5 MG TAB PO SCH (08:37)
[2022-11-08] MEDS: CALCITRIOL 0.25 MCG CAPSULE PO SCH (08:37)
[2022-11-08] MEDS: SOLIFENACIN SUCCINATE 5 MG PO SCH (08:38)
[2022-11-08] MEDS: HEPARIN SOD 5,000 UNIT/0.5 ML VIAL SQ SCH ×2 (08:38→20:22)
[2022-11-08 08:59] LABS: Hematocrit (blood only) 21.6 % (34.1-44.9); Hemoglobin 7.4 g/dl (12.0-16.0); Mean Corpuscular Hemoglobin 30.2 pg (25.0-34.0); Mean Corpuscular Hgb Conc 34.3 g/dL (32.0-36.0); Mean Corpuscular Volume 88.2 fL (80.0-100.0); Mean Platelet Volume 10.9 fL (9.4-12.3); Platelet Count 93 K/uL (130-400); RDW Standard Deviation 45.2 fL (36.4-46.3); Red Blood Count 2.45 M/uL (3.93-5.22)
[2022-11-08 09:00] LABS: ALC (manual) 0.75 K/uL (1.2-3.4); ANC (manual) 0.66 K/uL (1.4-6.5); Eosinophils % (manual) 6 %; Lymphocytes # (manual) 0.75 K/uL (1.2-3.4); Lymphocytes % (manual) 47 %; Monocytes % (manual) 6 %; Neutrophils # (manual) 0.66 K/uL (1.4-6.5); Neutrophils % (manual) 41 %
--- NOTE | 2022-11-08 09:20 | Nephrology Progress Note ---
Date of Service November 08, 2022 Assessment & Plan (1) MADELEINE (acute kidney injury): Plan: * Mild MADELEINE/CKD related to intravascular volume contraction and 3rd spacing of fluid * Continue to hold diuretic, monitor I&O, PRP * Continue NaHCO3 to 650 mg daily (2) CKD (chronic kidney disease) stage 4, GFR 15-29 ml/min: Plan: * Baseline Cr 2.5. CKD likely on the basis of CNI therapy for OLT * Proteinuria is likely a manifestation of CNI therapy and interstitial scarring * Patient will require outpatient follow up at her transplant center following hospitalization to determine whether to reduce Tacrolimus dose or pursue kidney biopsy * Will order serum and urine immunoelectropheresis (3) Pancytopenia: Plan: * Likely related to recent viral infections (COVID, influenza). Management as per Hematology (4) Influenza A: Plan: * Completed Tamiflu therapy (5) Liver transplant recipient: Admission and Anticipated Discharge Date Admission Date: October 31, 2022 Subjective Ms. Hendricks was evaluated in her hospital room this morning. She reports that her peripheral edema is mildly improved. She reports good UO Review of Systems Constitutional: no fever Eyes: no problem reported Ear, Nose, Mouth, Throat: no problem reported Respiratory: + cough; no dyspnea Cardiovascular: no chest pain Gastrointestinal: no abdominal pain, no vomiting and no diarrhea/loose stools Neurologic: no confusion Physical Exam Constitutional: not in distress Eyes: PERRL, conjunctivae normal, anicteric sclerae ENMT: external ear and nose normal, oropharynx normal Neck: trachea midline, no thyromegaly Respiratory: Auscultation: + crackles Cardiovascular: Rate/Rhythm: regular rate and regular rhythm Extremities: + edema (dependent edema of the arms and legs) Gastrointestinal (Abdomen): normal bowel sounds, soft, nontender, no hepatosplenomegaly Results & Data ([facility]) Vital Signs (Past 12 Hours) Vital Signs Temp Pulse Pulse Pulse Resp BP Pulse Ox 11/08/22 07:47 36.6 C 78 20 150/76 H 97 11/08/22 07:23 73 11/08/22 02:38 36.7 C 85 18 135/71 98 11/07/22 23:20 36.7 C 79 16 120/70 97 11/07/22 23:19 81 O2 Del Method 11/08/22 07:47 Room Air 11/08/22 07:23 11/08/22 02:38 Room Air 11/07/22 23:20 Room Air 11/07/22 23:19 Laboratory Results Laboratory Tests 11/08/22 11/08/22 07:10 07:10 WBC 1.60 L Hgb 7.4 L Plt Count 93 L Sodium 142 Potassium 4.3 Chloride 113 H Carbon Dioxide 24 BUN 45 H Creatinine 2.65 H D Glucose 126 H PG Care Time/CCT Total # of Minutes Spent Total Time Spent with Patient: Total time spent is greater than 50% in coordination of care (as documented) at patient's floor/unit and/or counseling patient: Coding Level of Care Code 41873 SUB INP/OBS CARE 3/50MIN Diagnoses MADELEINE (acute kidney injury) N17.9 CKD (chronic kidney disease) stage 4, GFR 15-29 ml/min N18.4 Pancytopenia D61.818 Influenza A J10.1 Liver transplant recipient Z94.4
--- NOTE | 2022-11-08 20:19 | Hospitalist Progress Note ---
Date of Service November 08, 2022 Assessment & Plan (1) Acute respiratory failure with hypoxia: Plan: RESOLVED. 2nd to influenza A infection, possible bacterial superinfection/pneumonia, +/- pulmonary edema. Finished 5-day course of tamiflu. Completed 7 days of cefepime for possible bacterial pneumonia. Was on BIPAP at admission; now in RA for several days. All of the above is in context of COVID infection in 10/2022. I obtained CT chest (noncontrast) due to prolonged cough/wheezing (up to 12 months in duration per her recollection, and no prior h/o asthma/COPD/etc) - groundglass opacities and tree-in-bud opacities seen. Groundglass opacities likely due to prior COVID and/or flu. Tree-in-bud could be from aspiration?? Speech therapy saw in consult; video swallow planned for Wednesday. Lung exam has improved nicely over the last 2 days. (2) Influenza A: Plan: resolved completed course of tamiflu. cont droplet precautions. (3) MADELEINE (acute kidney injury): Plan: peak Cr 2.9 resolved, Cr today 2.6 2nd to diuresis earlier this week diuretics on hold [facility] Nephrology following (4) Chronic kidney disease, stage IV (severe): Plan: with nephrotic range proteinuria. Cr baseline was <2 up until October 2022 when it climbed to >2 it has remained >2 since then now STAGE 4 with CrCl 20s mild superimposed MADELEINE - peak Cr 2.9 Cr today 2.6 saw [facility] Nephro during prior admission in 10/22 if she is developing multiple myeloma - 2nd to such? 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 follows with endocrinology teacher in [place] ([facility]). daily BMP while here. HIV test was negative. CMV pending. Renal u/s noted. Repeat u/a noted (4+ protein). need for biopsy in future if no recovery ?? appreciate nephrology consultation. of note - 24-hour urine in progress as ordered by Dr Sauer. (5) Diabetes mellitus with neurological manifestations, uncontrolled: Plan: Cont lantus Cont novolog BSGs acceptable/controlled 10/2022 a1c 5% but suspect it is falsely low due to anemia (6) MGUS (monoclonal gammopathy of unknown significance): Plan: h/o such has worsening pancytopenia the pancytopenia is chronic, but cell lines gradually decreasing over last few months b12/folate wnl TSH wnl appreciate Dr Brito's consultation from hematology/oncology HIV test negative CMV Test pending has MGUS morphed into multiple myeloma? patient has had bone marrow biopsies in the past - none in several years - may need another BMB as outpatient appreciate Dr Brito's recommendations (7) Liver transplant recipient: Plan: Patient is status post liver transplant 2018 secondary to primary biliary cirrhosis. She remains on tacrolimus for immunosuppression - level returned low (4.5). Level in 10/22 was wnl. Follows with [facility] but has not seen them in what sounds l erica several years??? LFTs have been wnl fortunately except scant elevation ast/alt - perhaps from volume overload vs viral vs other. INR 1.1. Cont tacrolimus 1mg HS and 2mg AM. She needs close f/u with transplant team in [facility] post-d/c. LFTs remain stable. Will call her transplant team on Wednesday. (8) Lumbar vertebral fracture: Plan: Previous history lumbar compression fractures with chronic pain (9) COVID-19: Plan: 10/2022 - resolved d/c airborne isolation per infection control guidance cont droplet precautions due to FluA infection (10) Primary biliary cirrhosis: Plan: as above (11) Volume overload: Plan: echo with preserved EF no valvular disease no significant diastolic dysfunction volume overload is 2nd to progressive renal dysfunction and nephrotic range proteinuria 4+ protein on urinalysis TSH 10/22 wnl hold off on diuretics today as 2 doses of diuretics led to jump in Cr to 2.9 (12) Pancytopenia: Plan: b12/folate wnl bone marrow biopsy for definitive dx?? Dr Brito to see in consult see "MGUS" above (13) Neutropenia: Plan: institute neutropenic precautions daily CBC with diff (14) Morbid obesity with BMI of 40.0-44.9, adult: Plan: BMI 42 (15) DVT prophylaxis: Plan: heparin 5000 BID Plan PT, OT completed and safe for d/c home with family updated pt's by phone 11/06/22 very brief update given to pt's son at bedside today home on Wednesday after video swallow test by speech? Wednesday? Admission and Anticipated Discharge Date Admission Date: October 31, 2022 Subjective tele overnight wnl patient cont with mild cough and LE edema otherwise feeling ok appetite has picked up - eating 100% of meals denies any new complaints anxious to get home soon Review of Systems Review of Systems: gen - no fevers or chills cv - no chest pain, no orthopnea pulm - cough with minimal sputum, some wheezing - but improved GI - no N/V/abd pain Physical Exam Physical Exam: gen - obese, NAD, looks much better than prior exams neck - mild JVD mouth - MMM heart - RRR, s1 s2, 2/6 EMILY LSB lungs - diffuse wheezes MUCH improved -- mild at most today b/l; crackles bases MUCH improved (just about resolved); airation good today; no distress abd - soft NT ND BS+; no HSM ext - 2+ pitting edema - no change; pulses 2+ b/l psych - a/o x 3 Results & Data Results & Data ([facility]) Vital Signs (Past 12 Hours) Vital Signs Temp Pulse Pulse Pulse Resp BP Pulse Ox 11/08/22 19:15 36.6 C 87 20 146/75 H 99 11/08/22 15:00 75 11/08/22 15:15 36.7 C 82 18 126/66 96 11/08/22 12:18 36.6 C 90 18 137/71 97 O2 Del Method 11/08/22 19:15 Room Air 11/08/22 15:00 11/08/22 15:15 Room Air 11/08/22 12:18 Room Air Laboratory Results Laboratory Results - last 24 hr 11/07/22 11/08/22 11/08/22 21:00 07:10 07:10 WBC 1.60 L RBC 2.45 L Hgb 7.4 L Hct 21.6 L MCV 88.2 MCH 30.2 MCHC 34.3 RDW Std Deviation 45.2 RDW Coeff of Paty 14.0 Plt Count 93 L MPV 10.9 Neutrophils % (Manual) 41 Lymphocytes % (Manual) 47 Monocytes % (Manual) 6 Eosinophils % (Manual) 6 Neutrophils # (Manual) 0.66 L Total Absolute Neuts 0.66 L* Lymphocytes # (Manual) 0.75 L Total Abs Lymphocytes 0.75 L Monocytes # (Manual) 0.10 L Eosinophils # (Manual) 0.10 Sodium 142 Potassium 4.3 Chloride 113 H Carbon Dioxide 24 Anion Gap 5 BUN 45 H Creatinine 2.65 H D Est Cr Clr Drug Dosing 21.9 Est GFR ( Amer) 21.8 Est GFR (Non-Af Amer) 18.8 BUN/Creatinine Ratio 17.0 Glucose 126 H POC Glucose 136 H Calcium 8.1 L Serum Immunofixation 11/08/22 11/08/22 11/08/22 07:25 09:48 11:29 WBC RBC Hgb Hct MCV MCH MCHC RDW Std Deviation RDW Coeff of Paty Plt Count MPV Neutrophils % (Manual) Lymphocytes % (Manual) Monocytes % (Manual) Eosinophils % (Manual) Neutrophils # (Manual) Total Absolute Neuts Lymphocytes # (Manual) Total Abs Lymphocytes Monocytes # (Manual) Eosinophils # (Manual) Sodium Potassium Chloride Carbon Dioxide Anion Gap BUN Creatinine Est Cr Clr Drug Dosing Est GFR ( Amer) Est GFR (Non-Af Amer) BUN/Creatinine Ratio Glucose POC Glucose 130 H 159 H Calcium Serum Immunofixation Pending 11/08/22 11/08/22 15:44 20:06 WBC RBC Hgb Hct MCV MCH MCHC RDW Std Deviation RDW Coeff of Paty Plt Count MPV Neutrophils % (Manual) Lymphocytes % (Manual) Monocytes % (Manual) Eosinophils % (Manual) Neutrophils # (Manual) Total Absolute Neuts Lymphocytes # (Manual) Total Abs Lymphocytes Monocytes # (Manual) Eosinophils # (Manual) Sodium Potassium Chloride Carbon Dioxide Anion Gap BUN Creatinine Est Cr Clr Drug Dosing Est GFR ( Amer) Est GFR (Non-Af Amer) BUN/Creatinine Ratio Glucose POC Glucose 98 140 H Calcium Serum Immunofixation PG Care Time/CCT Total # of Minutes Spent Total Time Spent with Patient: Total time spent is greater than 50% in coordination of care (as documented) at patient's floor/unit and/or counseling patient: Coding Level of Care Code 74392 SUB INP/OBS CARE 235MIN Diagnoses Acute respiratory failure with hypoxia J96.01 Influenza A J10.1 MADELEINE (acute kidney injury) N17.9 Chronic kidney disease, stage IV (severe) N18.4 Diabetes mellitus with neurological manifestations, uncontrolled E11.49; E11.65 MGUS (monoclonal gammopathy of unknown significance) D47.2 Liver transplant recipient Z94.4 Lumbar vertebral fracture S32.009A COVID-19 U07.1 Primary biliary cirrhosis K74.3 Volume overload E87.70 Pancytopenia D61.818 Neutropenia D70.9 Morbid obesity with BMI of 40.0-44.9, adult E66.01; Z68.41 DVT prophylaxis Z29.9
[2022-11-08] MEDS: LANTUS PER UNIT CHARGE SQ SCH (20:22)
[2022-11-09 06:13] LABS: Hematocrit (blood only) 21.3 % (34.1-44.9); Hemoglobin 7.3 g/dl (12.0-16.0); Mean Corpuscular Hemoglobin 30.5 pg (25.0-34.0); Mean Corpuscular Hgb Conc 34.3 g/dL (32.0-36.0); Mean Corpuscular Volume 89.1 fL (80.0-100.0); Mean Platelet Volume 11.2 fL (9.4-12.3); Platelet Count 85 K/uL (130-400); RDW Coefficient of Variation 13.7 % (11.5-14.5); RDW Standard Deviation 45.3 fL (36.4-46.3); Red Blood Count 2.39 M/uL (3.93-5.22); White Blood Count 1.74 K/ul (4.8-10.8)
[2022-11-09 06:42] LABS: BUN Creatinine Ratio 17.4 (10-20); Calcium 8.5 mg/dl (8.5-10.1); Creatinine Clr Calc Pharmacy 22.4 ml/min; Est GFR (African American) 22.4 ml/min; Est GFR (Non-African American) 19.4 ml/min; Magnesium 1.5 mg/dl (1.7-2.4); Potassium 4.1 mmol/L (3.5-5.1)
[2022-11-09 07:20] LABS: Basophils # (auto) 0.01 K/uL (0-0.2); Basophils % (auto) 0.6 %; Eosinophils # (auto) 0.12 K/uL (0-0.50); Eosinophils % (auto) 6.9 %; Immature Granulocytes # (auto) 0.01 K/uL (0.00-0.02); Immature Granulocytes % (auto) 0.6 %; Lymphocytes # (auto) 0.92 K/uL (1.2-3.4); Lymphocytes % (auto) 52.9 %; Monocytes # (auto) 0.22 K/uL (0.24-0.82); Monocytes % (auto) 12.6 %; Neutrophils # (auto) 0.46 K/uL (1.4-6.5); Neutrophils % (auto) 26.4 %
[2022-11-09 07:54] LABS: CMV DNA Qnt Real Time PCR Not Detected; CMV DNA Quant PCR Not Detected log IU/mL
[2022-11-09] MEDS: HEPARIN SOD 5,000 UNIT/0.5 ML VIAL SQ SCH ×2 (08:46→19:47)
[2022-11-09] MEDS: FLUTICASONE/VILANTEROL 100/25MCG 14 PUFFS/INHALER INH SCH (08:47)
[2022-11-09] MEDS: SOLIFENACIN SUCCINATE 5 MG PO SCH (08:47)
--- NOTE | 2022-11-09 08:48 | Nephrology Progress Note ---
Date of Service November 09, 2022 Assessment & Plan (1) MADELEINE (acute kidney injury): Plan: * MADELEINE has resolved * Continue to hold diuretic * Continue NaHCO3 to 650 mg daily (2) CKD (chronic kidney disease) stage 4, GFR 15-29 ml/min: Plan: * Baseline Cr 2.5. CKD likely on the basis of CNI therapy for OLT * Proteinuria is likely a manifestation of CNI therapy and interstitial scarring * Patient will require outpatient follow up at her transplant center following hospitalization to determine whether to reduce Tacrolimus dose or pursue kidney biopsy * Serum and urine immunoelectrophoresis * If discharge is anticipated, recommend follow up with primary Hogshead Filler, Dr. Acosta within the next 7 - 14 days (3) Pancytopenia: Plan: * Likely related to recent viral infections (COVID, influenza). Management as per Hematology (4) Influenza A: Plan: * Completed Tamiflu therapy (5) Liver transplant recipient: Admission and Anticipated Discharge Date Admission Date: October 31, 2022 Subjective Ms. Hendricks reports that her peripheral edema is mildly improved. She reports good UO. She is anxious to return home Review of Systems Constitutional: no fever Eyes: no problem reported Ear, Nose, Mouth, Throat: no problem reported Respiratory: no dyspnea Cardiovascular: no chest pain Gastrointestinal: no abdominal pain, no vomiting and no diarrhea/loose stools Neurologic: no confusion Physical Exam Constitutional: not in distress Eyes: PERRL, conjunctivae normal, anicteric sclerae ENMT: external ear and nose normal, oropharynx normal Neck: trachea midline, no thyromegaly Respiratory: Auscultation: lungs clear to auscultation bilaterally and + crackles Cardiovascular: Rate/Rhythm: regular rate and regular rhythm Extremities: + edema (dependent edema of the arms and legs) Gastrointestinal (Abdomen): normal bowel sounds, soft, nontender, no hepatosplenomegaly Results & Data ([facility]) Vital Signs (Past 12 Hours) Vital Signs Temp Pulse Pulse Resp BP BP Pulse Ox 11/09/22 07:23 36.7 C 80 18 143/82 H 97 11/09/22 03:15 36.6 C 82 20 146/76 H 99 11/08/22 23:03 36.5 C 83 18 148/76 H 97 O2 Del Method 11/09/22 07:23 Room Air 11/09/22 03:15 Room Air 11/08/22 23:03 Room Air Laboratory Results Laboratory Tests 11/09/22 11/09/22 05:50 05:50 WBC 1.74 L Hgb 7.3 L Hct 21.3 L Plt Count 85 L Sodium 143 Potassium 4.1 Chloride 114 H Carbon Dioxide 24 BUN 45 H Creatinine 2.59 H Glucose 95 Magnesium 1.5 L PG Care Time/CCT Total # of Minutes Spent Total Time Spent with Patient: Total time spent is greater than 50% in coordination of care (as documented) at patient's floor/unit and/or counseling patient: Coding Level of Care Code 82129 SUB INP/OBS CARE 3/50MIN Diagnoses MADELEINE (acute kidney injury) N17.9 CKD (chronic kidney disease) stage 4, GFR 15-29 ml/min N18.4 Pancytopenia D61.818 Influenza A J10.1 Liver transplant recipient Z94.4
[2022-11-09] MEDS: amLODIPine BESYLATE 5 MG TAB PO SCH (08:52)
[2022-11-09] MEDS: FAMOTIDINE 20 MG TAB PO SCH (08:52)
[2022-11-09] MEDS: TACROLIMUS 1 MG CAP PO SCH ×2 (08:52→19:48)
[2022-11-09] MEDS: CALCITRIOL 0.25 MCG CAPSULE PO SCH (08:52)
[2022-11-09] MEDS: SODIUM BICARBONATE 650 MG TAB PO SCH (08:52)
[2022-11-09] MEDS: INSULIN ASPART PER UNIT SC SCH ×4 (08:55→19:46)
[2022-11-09] MEDS: MAGNESIUM SULFATE / D5W 1 GM/100 ML BAG IV SCH ×2 (10:42→12:42)
--- NOTE | 2022-11-09 13:09 | Fluoroscopy Report ---
MODIFIED BARIUM SWALLOW CLINICAL HISTORY: Assess for aspiration COMPARISON STUDY: None. FLUOROSCOPY TIME: 2.1 minutes. TECHNIQUE: A modified barium swallow was performed in conjunction with Speech Pathology. The patient ingested varying consistencies of barium containing material. Video fluoroscopy was performed. FINDINGS: No aspiration was identified with thin liquids, mildly thick liquids, pudding or crackers w ith paste. Epiglottic inversion was normal. Laryngeal elevation was normal. IMPRESSION: 1. Intact swallowing mechanism. No tracheal aspiration. 2. Full recommendations by Speech pathology to follow. ACT 112: Negative or not required by law. Electronically signed by: Omar Orlando M.D. 11/09/2022 1:07 PM
[2022-11-09] MEDS: LANTUS PER UNIT CHARGE SQ SCH (20:27)
--- NOTE | 2022-11-09 20:32 | Hospitalist Progress Note ---
Date of Service November 09, 2022 Assessment & Plan (1) Acute respiratory failure with hypoxia: Plan: RESOLVED. 2nd to influenza A infection, possible bacterial superinfection/pneumonia, +/- pulmonary edema. Finished 5-day course of tamiflu. Completed 7 days of cefepime for possible bacterial pneumonia. Was on BIPAP at admission; now in RA for several days. All of the above is in context of COVID infection in 10/2022. I obtained CT chest (noncontrast) due to prolonged cough/wheezing (up to 12 months in duration per her recollection, and no prior h/o asthma/COPD/etc) - groundglass opacities and tree-in-bud opacities seen. Groundglass opacities likely due to prior COVID and/or flu. Tree-in-bud could be from aspiration?? Speech therapy saw in consult; video swallow today was wnl. Lung exam has improved with time and addition of Breo. She will need [facility] - needs PFTs, etc. She is scheduled to see Dr Bertrand after d/c. (2) Influenza A: Plan: resolved completed course of tamiflu. cont droplet precautions. (3) MADELEINE (acute kidney injury): Plan: peak Cr 2.9 resolved, Cr today 2.5 MADELEINE 2nd to diuresis last week diuretics on hold since then [facility] Nephrology following; recs appreciated Nephrology advises against standing diuretics/ daily diuretics (4) Chronic kidney disease, stage IV (severe): Plan: with nephrotic range proteinuria. Cr baseline was <2 up until October 2022 when it climbed to >2 it has remained >2 since then now STAGE 4 with CrCl 20s mild superimposed MADELEINE - peak Cr 2.9 Cr today 2.5. saw [facility] Nephro during prior admission in 10/22 if she is developing multiple myeloma - 2nd to such? 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 follows with naphthalene operator in [place] (Dr Acosta). daily BMP while here. HIV test was negative. CMV DNA negative. Renal u/s noted. Repeat u/a noted (4+ protein). need for biopsy in future if no recovery ?? appreciate nephrology consultation. of note - 24-hour urine completed at noon today. Despite SEVERE edema nephrology advises against standing diuretics. Developed MADELEINE after just 2 doses of PO diuretics last week. Compression stockings advised for her LE edema. Discussed this with patient in detail today. 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 (5) Diabetes mellitus with neurological manifestations, uncontrolled: Plan: Cont lantus Cont novolog BSGs acceptable/controlled 10/2022 a1c 5% but suspect it is falsely low due to anemia (6) MGUS (monoclonal gammopathy of unknown significance): Plan: h/o such has worsening pancytopenia the pancytopenia is chronic, but cell lines gradually decreasing over last few months b12/folate wnl TSH wnl appreciate Dr Brito's consultation from hematology/oncology HIV test negative CMV Test negative has MGUS morphed into multiple myeloma? patient has had bone marrow biopsies in the past - none in several years - may need another BMB as outpatient appreciate Dr Brito's recommendations (7) Liver transplant recipient: Plan: Patient is status post liver transplant 2018 secondary to primary biliary cirrhosis. She remains on tacrolimus for immunosuppression - level returned low (4.5). Level in 10/22 was wnl. Follows with [facility] but has not seen them in what sounds like several years??? LFTs have been wnl fortunately except scant elevation ast/alt - perhaps from volume overload vs viral vs other. INR 1.1. Cont tacrolimus 1mg HS and 2mg AM. She needs close f/u with transplant team in [place] william post-d/c. LFTs remain stable. see below regarding phone calls to transplant team (8) Lumbar vertebral fracture: Plan: Previous history lumbar compression fractures with chronic pain (9) COVID-19: Plan: 10/2022 - resolved d/c airborne isolation per infection control guidance cont droplet precautions due to FluA infection (10) Primary biliary cirrhosis: Plan: as above (11) Volume overload: Plan: echo with preserved EF no valvular disease no significant diastolic dysfunction volume overload is 2nd to progressive renal dysfunction and nephrotic range proteinuria 4+ protein on urinalysis TSH 10/22 wnl unfortunately trying to diurese is simply not possible at this time (intravascularly dry with total body water volume overload) (12) Pancytopenia: Plan: b12/folate wnl bone marrow biopsy for definitive dx?? Dr Brito consult appreciated see "MGUS" above Will need to see Dr Brito 1-2 weeks post-discharge (13) Neutropenia: Plan: institute neutropenic precautions daily CBC with diff (14) Morbid obesity with BMI of 40.0-44.9, adult: Plan: BMI 42 (15) DVT prophylaxis: Plan: heparin 5000 BID Plan PT, OT completed and safe for d/c home with family updated pt's by phone 11/06/22 very brief update given to pt's son at bedside yesterday patient asks that we NOT call her with updates or information - Called [facility] in [place] - liver transplant clinic - [phone], left message for the community recreation coordinator Ms Aracelis Timmons on 11/09/22. Called a 2nd phone # that was provided by Ms LamEladio. The 2nd person is another community recreation coordinator; her name is Clara, phone # [phone]. Left message for Clara 11/09/22. I did not hear back from either individual on 11/09/22. Ideally we connect with her liver transplant team before discharge, have orthotics see her for compression stockings, etc. thus, no discharge today. VERY COMPLEX CARE COORDINATION TODAY -- NUMEROUS phone calls/correspondences to multiple consultants (nephrology, pulmonary, hematology), liver transplant clinic [place], disposition planning, etc total care time 80 minutes Admission and Anticipated Discharge Date Admission Date: October 31, 2022 Subjective tele overnight wnl she feels about the same as yesterday mild cough, dry/no sputum, some wheezing mild GALVEZ I had patient walk in hallway with staff - sats stayed >90% entire walk she has AFO devices for b/l foot drop had SIGNIFICANT difficulty getting shoes/AFOs on today due to severe edema the AFOs are very uncomfortable placed 2 phone calls to the liver transplant team in [place] today at [facility] - left messages, did not hear back Review of Systems Review of Systems: gen - no fevers or chills cv - no chest pain; no orthopnea; severe edema b/l legs pulm - cough/wheeze/GALVEZ - unchanged, no worse GI - no nausea/emesis/abd pain - no LUTS Physical Exam Physical Exam: gen - obese, NAD neck - no JVD mouth - MMM heart - RRR, s1 s2, 2/6 EMILY LSB lungs - mild end-exp wheezes b/l; no crackles; airation wnl; no distress abd - soft NT ND BS+; no HSM ext - 2-3+ pitting edema - no change; pulses 2+ b/l; edema extends to thighs psych - a/o x 3 Results & Data Results & Data ([facility]) Vital Signs (Past 12 Hours) Vital Signs Temp Pulse Pulse Pulse Resp BP BP 11/09/22 19:24 36.6 C 86 18 155/79 H 11/09/22 16:27 36.5 C 93 H 18 145/68 H 11/09/22 15:00 77 11/09/22 14:14 11/09/22 11:25 36.8 C 82 18 122/70 Pulse Ox O2 Del Method O2 Flow Rate 11/09/22 19:24 99 Room Air 11/09/22 16:27 97 Room Air 11/09/22 15:00 11/09/22 14:14 95 0 11/09/22 11:25 96 Room Air Laboratory Results Laboratory Results - last 24 hr 11/06/22 11/09/22 11/09/22 05:57 05:50 05:50 WBC 1.74 L RBC 2.39 L Hgb 7.3 L Hct 21.3 L MCV 89.1 MCH 30.5 MCHC 34.3 RDW Std Deviation 45.3 RDW Coeff of Paty 13.7 Plt Count 85 L MPV 11.2 Immature Gran % (Auto) 0.6 Neut % (Auto) 26.4 Lymph % (Auto) 52.9 Lucas % (Auto) 12.6 Eos % (Auto) 6.9 Baso % (Auto) 0.6 Neut # (Auto) 0.46 L* Lymph # (Auto) 0.92 L Lucas # (Auto) 0.22 L Eos # (Auto) 0.12 Baso # (Auto) 0.01 Immature Gran # (Auto) 0.01 Sodium 143 Potassium 4.1 Chloride 114 H Carbon Dioxide 24 Anion Gap 5 BUN 45 H Creatinine 2.59 H Est Cr Clr Drug Dosing 22.4 Est GFR ( Amer) 22.4 Est GFR (Non-Af Amer) 19.4 BUN/Creatinine Ratio 17.4 Glucose 95 POC Glucose Calcium 8.5 Magnesium 1.5 L Urine Immunofixation CMV Specimen Source Whole Blood CMV Qnt PCR IU/mL Not Detected CMV Qnt PCR log IU/mL Not Detected 11/09/22 11/09/22 11/09/22 07:22 11:17 16:19 WBC RBC Hgb Hct MCV MCH MCHC RDW Std Deviation RDW Coeff of Paty Plt Count MPV Immature Gran % (Auto) Neut % (Auto) Lymph % (Auto) Lucas % (Auto) Eos % (Auto) Baso % (Auto) Neut # (Auto) Lymph # (Auto) Lucas # (Auto) Eos # (Auto) Baso # (Auto) Immature Gran # (Auto) Sodium Potassium Chloride Carbon Dioxide Anion Gap BUN Creatinine Est Cr Clr Drug Dosing Est GFR ( Amer) Est GFR (Non-Af Amer) BUN/Creatinine Ratio Glucose POC Glucose 91 176 H 82 Calcium Magnesium Urine Immunofixation CMV Specimen Source CMV Qnt PCR IU/mL CMV Qnt PCR log IU/mL 11/09/22 11/09/22 19:45 Unknown WBC RBC Hgb Hct MCV MCH MCHC RDW Std Deviation RDW Coeff of Paty Plt Count MPV Immature Gran % (Auto) Neut % (Auto) Lymph % (Auto) Lucas % (Auto) Eos % (Auto) Baso % (Auto) Neut # (Auto) Lymph # (Auto) Lucas # (Auto) Eos # (Auto) Baso # (Auto) Immature Gran # (Auto) Sodium Potassium Chloride Carbon Dioxide Anion Gap BUN Creatinine Est Cr Clr Drug Dosing Est GFR ( Amer) Est GFR (Non-Af Amer) BUN/Creatinine Ratio Glucose POC Glucose 93 Calcium Magnesium Urine Immunofixation Pending CMV Specimen Source CMV Qnt PCR IU/mL CMV Qnt PCR log IU/mL PG Care Time/CCT Total # of Minutes Spent Total Time Spent with Patient: Total time spent is greater than 50% in coordination of care (as documented) at patient's floor/unit and/or counseling patient: Prolonged Care Time Prolonged Care Time: Yes Total Prolonged Care Time: 80 Coding Level of Care Code 73188 SUB INP/OBS CARE 3/50MIN (25 - SIGNIFICANT, SEPARATELY IDENTIFIABLE ) Diagnoses Acute respiratory failure with hypoxia J96.01 Influenza A J10.1 MADELEINE (acute kidney injury) N17.9 Chronic kidney disease, stage IV (severe) N18.4 Diabetes mellitus with neurological manifestations, uncontrolled E11.49; E11.65 MGUS (monoclonal gammopathy of unknown significance) D47.2 Liver transplant recipient Z94.4 Lumbar vertebral fracture S32.009A COVID-19 U07.1 Primary biliary cirrhosis K74.3 Volume overload E87.70 Pancytopenia D61.818 Neutropenia D70.9 Morbid obesity with BMI of 40.0-44.9, adult E66.01; Z68.41 DVT prophylaxis Z29.9 Additional Codes Prolonged Care Time - Prolonged Care Time: Yes ([id number])
[2022-11-10 07:20] LABS: Hematocrit (blood only) 21.1 % (34.1-44.9); Hemoglobin 7.2 g/dl (12.0-16.0); Mean Corpuscular Hemoglobin 30.1 pg (25.0-34.0); Mean Corpuscular Hgb Conc 34.1 g/dL (32.0-36.0); Mean Corpuscular Volume 88.3 fL (80.0-100.0); Mean Platelet Volume 10.5 fL (9.4-12.3); Platelet Count 103 K/uL (130-400); RDW Standard Deviation 45.4 fL (36.4-46.3); Red Blood Count 2.39 M/uL (3.93-5.22); White Blood Count 1.87 K/ul (4.8-10.8)
[2022-11-10 07:46] LABS: BUN Creatinine Ratio 15.9 (10-20); Calcium 8.3 mg/dl (8.5-10.1); Est GFR (African American) 20.8 ml/min; Est GFR (Non-African American) 17.9 ml/min; Magnesium 1.8 mg/dl (1.7-2.4); Potassium 4.5 mmol/L (3.5-5.1)
[2022-11-10] MEDS: SOLIFENACIN SUCCINATE 5 MG PO SCH (08:45)
[2022-11-10] MEDS: FLUTICASONE/VILANTEROL 100/25MCG 14 PUFFS/INHALER INH SCH (08:45)
[2022-11-10 08:46] LABS: Basophils # (auto) 0.01 K/uL (0-0.2); Basophils % (auto) 0.5 %; Eosinophils # (auto) 0.12 K/uL (0-0.50); Eosinophils % (auto) 6.4 %; Immature Granulocytes # (auto) 0.03 K/uL (0.00-0.02); Immature Granulocytes % (auto) 1.6 %; Lymphocytes # (auto) 0.99 K/uL (1.2-3.4); Lymphocytes % (auto) 52.9 %; Monocytes # (auto) 0.24 K/uL (0.24-0.82); Monocytes % (auto) 12.8 %; Neutrophils # (auto) 0.48 K/uL (1.4-6.5); Neutrophils % (auto) 25.8 %; Polychromasia 1+
[2022-11-10] MEDS: SODIUM BICARBONATE 650 MG TAB PO SCH (08:46)
[2022-11-10] MEDS: FAMOTIDINE 20 MG TAB PO SCH (08:46)
[2022-11-10] MEDS: amLODIPine BESYLATE 5 MG TAB PO SCH (08:46)
[2022-11-10] MEDS: TACROLIMUS 1 MG CAP PO SCH (08:46)
[2022-11-10] MEDS: HEPARIN SOD 5,000 UNIT/0.5 ML VIAL SQ SCH (08:46)
[2022-11-10] MEDS: CALCITRIOL 0.25 MCG CAPSULE PO SCH (08:46)
--- NOTE | 2022-11-10 08:53 | Nephrology Progress Note ---
Date of Service November 10, 2022 Assessment & Plan (1) MADELEINE (acute kidney injury): Plan: * MADELEINE has resolved * Continue to hold diuretic * Continue NaHCO3 to 650 mg daily (2) CKD (chronic kidney disease) stage 4, GFR 15-29 ml/min: Plan: * Baseline Cr 2.5. CKD likely on the basis of CNI therapy for OLT * Proteinuria is likely a manifestation of CNI therapy and interstitial scarring * Patient will require outpatient follow up at her transplant center following hospitalization to determine whether to reduce Tacrolimus dose or pursue kidney biopsy * Serum and urine immunoelectrophoresis - pending * If discharge is anticipated, recommend follow up with primary [employer]obile [employer] Rep[employer] Helper, Dr. Acosta within the next 7 - 14 days (3) Pancytopenia: Plan: * Likely related to recent viral infections (COVID, influenza). Management as per Hematology (4) Liver transplant recipient: Admission and Anticipated Discharge Date Admission Date: October 31, 2022 Subjective Ms. Hendricks reports that her peripheral edema is mildly improved. She reports good UO. She is anxious to return home Review of Systems Constitutional: no fever Eyes: no problem reported Ear, Nose, Mouth, Throat: no problem reported Respiratory: no dyspnea Cardiovascular: no chest pain Gastrointestinal: no abdominal pain, no vomiting and no diarrhea/loose stools Neurologic: no confusion Physical Exam Constitutional: not in distress Eyes: PERRL, conjunctivae normal, anicteric sclerae ENMT: external ear and nose normal, oropharynx normal Neck: trachea midline, no thyromegaly Respiratory: Auscultation: lungs clear to auscultation bilaterally and + crackles Cardiovascular: Rate/Rhythm: regular rate and regular rhythm Extremities: + edema (dependent edema of the arms and legs) Gastrointestinal (Abdomen): normal bowel sounds, soft, nontender, no hepatosplenomegaly Results & Data ([facility]) Vital Signs (Past 12 Hours) Vital Signs Temp Pulse Pulse Resp BP BP Pulse Ox 11/10/22 08:07 36.5 C 86 18 171/88 H 99 11/10/22 07:21 56 L 11/10/22 07:21 11/10/22 03:47 36.7 C 81 18 121/71 99 11/09/22 23:08 36.8 C 78 18 146/78 H 97 O2 Del Method 11/10/22 08:07 Room Air 11/10/22 07:21 11/10/22 07:21 Room Air 11/10/22 03:47 Room Air 11/09/22 23:08 Room Air Laboratory Results Laboratory Tests 11/10/22 11/10/22 07:04 07:04 WBC 1.87 L Hgb 7.2 L Hct 21.1 L Plt Count 103 L Sodium 144 Potassium 4.5 Chloride 115 H Carbon Dioxide 24 BUN 44 H Creatinine 2.76 H Glucose 87 Calcium 8.3 L Magnesium 1.8 10/14/22 Urine electrophoresis: URINE PROTEIN ELECTROPHORESIS REVEALS A SLIGHT RESTRICTION IN THE GAMMA REGION THAT MAY INDICATE THE PRESENCE OF A MONOCLONAL IMMUNOGLOBULIN. SUGGEST URINE IMMUNOFIXATION ELECTROPHORESIS IF CLINICALLY INDICATED. PG Care Time/CCT Total # of Minutes Spent Total Time Spent with Patient: Total time spent is greater than 50% in coordination of care (as documented) at patient's floor/unit and/or counseling patient: Coding Level of Care Code 20711 SUB INP/OBS CARE 2/35MIN Diagnoses MADELEINE (acute kidney injury) N17.9 CKD (chronic kidney disease) stage 4, GFR 15-29 ml/min N18.4 Pancytopenia D61.818 Liver transplant recipient Z94.4
[2022-11-10] MEDS: INSULIN ASPART PER UNIT SC SCH ×2 (08:54→13:10)
--- NOTE | 2022-11-10 13:32 | Discharge Summary ---
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 Earlier in the month she was admitted and she had COVID positivity this test was + October 11 at that time she was treated treated with a dexamethasone but never was hypoxic and was not a candidate for remdesivir due to her chronic kidney disease. Reportedly she was exposed at home to a family member with influenza A she d eveloped 1 to 2-day history of progressive worsening shortness of breath and nonproductive cough. She presented with a fever and respiratory distress and was rescued with BiPAP. She test positive for both influenza and COVID in the emergency department. She has abnormal chest x-ray changes on the right which looks more to be interstitial findings possibly slight pulmonary edema Principal Diagnosis Influenza A Volume overload Discharge Exam Vitals reviewed Gen: [AAOx3, NAD] HEENT: [anicteric sclerae, EOMI] CV: [RRR no mgr nl S1S2] Pulm: [CTAB no wcr] Abd: [+BS soft NT ND no masses or hernias] Ext: [3+ pitting edema legs and 1+ edema arms/hands bilat] Skin: [no rashes, warm/dry] Neuro: [full strength throughout] Discharge Data Allergies Allergy/AdvReac Type Severity Reaction Status Date / Time Iodinated Contrast Media Allergy Intermediate Sneezing Verified 10/31/22 13:36 and breaks out into a rash Penicillins Allergy Intermediate Hives Verified 10/31/22 13:36 metformin Allergy Unknown Unknown Verified 10/31/22 13:36 Consultations 10/31/22 15:00 ED Decision to Admit Stat 11/05/22 10:30 Consult Hematology Routine 11/06/22 08:08 Consult Nephrology Routine 11/09/22 12:46 Burn CD for patient Routine Ordered Studies 11/04/22 17:15 US venous doppler LE BI Routine 11/06/22 09:01 US Renal Bladder [US renal/blad retro comp] Routine 11/06/22 18:19 CT chest diagnostic wo con Routine 11/09/22 13:13 FL video swallow Routine Hospital Course (1) Acute respiratory failure with hypoxia: RESOLVED. 2nd to influenza A infection, possible bacterial superinfection/pneumonia, +/- pulmonary edema. Finished 5-day course of tamiflu. Completed 7 days of cefepime for possible bacterial pneumonia. Was on BIPAP at admission; now on RA for several days. All of the above is in context of COVID infection in 10/2022. CT chest (noncontrast) due to prolonged cough/wheezing (up to 12 months in duration per her recollection, and no prior h/o asthma/COPD/etc) - groundglass opacities and tree-in-bud opacities seen. Groundglass opacities likely due to prior COVID and/or flu. Tree-in-bud could be from aspiration?? Speech therapy saw in consult; video swallow was wnl. Lung exam has improved with time and addition of Breo. She will need f/u with [facility] Pulmonary - needs PFTs, etc. She is scheduled to see Dr Bertrand after d/c. (2) Influenza A: resolved completed course of tamiflu. cont droplet precautions. (3) MADELEINE (acute kidney injury): peak Cr 2.9 resolved, Cr now 2.7 MADELEINE 2nd to diuresis last week diuretics on hold since then [facility] Nephrology following; recs appreciated Nephrology advises against standing diuretics/ daily diuretics (4) Chronic kidney disease, stage IV (severe): with nephrotic range proteinuria. Cr baseline was <2 up until October 2022 when it climbed to >2 it has remained >2 since then now STAGE 4 with CrCl 20s mild superimposed MADELEINE - peak Cr 2.9 Cr now 2.[address] [facility] Nephro during prior admission in 10/22 if she is developing multiple myeloma - 2nd to such? 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 follows with men's and boys' clothing salesperson in [place] (Dr Acosta). daily BMP while here. HIV test was negative. CMV DNA negative. Renal u/s noted. Repeat u/a noted (4+ protein). need for biopsy in future if no recovery ?? appreciate nephrology consultation. of note - 24-hour urine completed but results pending Despite SEVERE edema nephrology advises against standing diuretics. Developed MADELEINE after just 2 doses of PO diuretics last week. 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 Advised pt to continue to call them and arrange outpt visit (5) Diabetes mellitus with neurological manifestations, uncontrolled: Cont lantus Cont novolog BSGs acceptable/controlled 10/2022 a1c 5% but suspect it is falsely low due to anemia (6) MGUS (monoclonal gammopathy of unknown significance): h/o such has worsening pancytopenia the pancytopenia is chronic, but cell lines gradually decreasing over last few months b12/folate wnl TSH wnl appreciate Dr Brito's consultation from hematology/oncology HIV test negative CMV Test negative has MGUS morphed into multiple myeloma? patient has had bone marrow biopsies in the past - none in several years - may need another BMB as outpatient appreciate Dr Brito's recommendations . f/u with Heme/Onc as outpt (7) Liver transplant recipient: Patient is status post liver transplant 2018 secondary to primary biliary cirrhosis. She remains on tacrolimus for immunosuppression - level returned low (4.5). Level in 10/22 was wnl. Follows with [facility] but has not seen them in what sounds like several years??? LFTs have been wnl fortunately except scant elevation ast/alt - perhaps from volume overload vs viral vs other. INR 1.1. Cont tacrolimus 1mg HS and 2mg AM. She needs close f/u with transplant team in [place] william post-d/c. LFTs remain stable. see below regarding phone calls to transplant team (8) Lumbar vertebral fracture: Previous history lumbar compression fractures with chronic pain (9) COVID-19: 10/2022 - resolved d/c airborne isolation per infection control guidance cont droplet precautions due to FluA infection (10) Primary biliary cirrhosis: as above (11) Volume overload: echo with preserved EF no valvular disease no significant diastolic dysfunction volume overload is 2nd to progressive renal dysfunction and nephrotic range proteinuria also on sodium bicarb tabs which will now be stopped 4+ protein on urinalysis TSH 10/22 wnl unfortunately trying to diurese is simply not possible at this time (intravascularly dry with total body water volume overload) (12) Pancytopenia: b12/folate wnl bone marrow biopsy for definitive dx?? Dr Brito consult appreciated see "MGUS" above Will need to see Dr Brito 1-2 weeks post-discharge (13) Neutropenia: institute neutropenic precautions f/u with Heme after discharge (14) Morbid obesity with BMI of 40.0-44.9, adult: BMI 42 (15) DVT prophylaxis: heparin 5000 BID Plan PT, OT completed and safe for d/c home with family Previous hospitalist called [facility] in [place] - liver transplant clinic - [phone], left message for the early childhood coordinator Ms OlsonAracelis Iain on 11/09/22. Called a 2nd phone # that was provided by Ms Hendricks. The 2nd person is another early childhood coordinator; her name is Clara, phone # [phone]. Left message for Clara 11/09/22. He did not hear back from either individual on 11/09/22. Dispo-stable for dc to home with close outpt f/u Total Time Total Time Spent Total Time Spent (In Minutes): 45 min Discharge Plan Discharge Items Patient Disposition: Home - Self-Care Reason For Visit: ACUTE RESP FAILURE, HYPOXIA, PNEUMONIA Discharge Diagnosis: Influenza, Hypoxia, Pneumonia, Kidney failure, Peripheral edema Condition on Discharge: Fair Activity: As commented below Bathing: No limitations Exercise/Sports: Gradually increase as tolerated Non-emergency contact: Primary Care Provider, Test Driver and Oncologist Call non-emergency contact if: you have any medication questions and your sympt oms worsen Follow-up/Referrals: She Davis DO [Primary Care Provider] - 11/13/22 9:00 am (Appointment with Maria G Jonas Please arrive 15 minutes prior to appointment time.) Duane Bertrand MD [Physician] - 11/27/22 8:45 am (Please arrive 15 minutes prior to appointment time. ) Darrin Brito MD [Physician] - 11/20/22 12:30 pm (Please follow up within 1-[address]. [address] Brito 11/20/22 @ 12:30) Elyse Feliciano CRNP [Outside Practitioners] - 12/03/22 3:30 pm (Nephrology follow-up) Diet: Carb Consistent or DM2, Low Potassium (2gm) and Low Sodium (2gm) Addtl Attending Provider Instructions: You were admitted with influenza and treated for this with improvement. Your swelling has gotten much worse and this may be due to the recently added amlodipine and sodium bicarbonate. Both of theses medications will be stopped. Instead, you will be started on a new blood pressure medication called metoprolol. You will be fitted with compression stockings to assist with the swelling in your legs. You should have your blood work checked on Wednesday with the results to be sent to your PCP and Test Driver. You will also need to follow up with your liver transplant team as soon as possible to discuss your recently worsening kidney function as it may be related to your tacrolimus. You also should follow up with the Ophthalmic Tech/Oncologist that saw you here in the hospital, Dr. Brito, at [facility]. Pending Studies at Discharge: No Stand-Alone Forms: My [facility] [employer] Medications and DC Order Prescriptions: New fluticasone furoate-vilanterol [Breo Ellipta] 100-25 mcg/dose Blister With Device 1 ea inhalation DAILY Qty: 60 0RF Continued (DME) lancets [OneTouch Delica Plus Lancet] 33 gauge misc See Rx Instructions .ROUTE .MEDSUPPLY Qty: 100 3RF Rx Instructions: Test 3 times daily (DME) OneTouch Verio test strips Strip See Rx Instructions .ROUTE .MEDSUPPLY Qty: 100 3RF Rx Instructions: Test 3 times daily albuterol sulfate 90 mcg/actuation HFA aerosol inhaler 2 inh inhalation Q6H PRN (Reason: shortness of breath or wheezing) Qty: 8.5 0RF tacrolimus 1 mg capsule 1 mg PO .COMPLEX Qty: 270 1RF Rx Instructions: 1 mg PO 1 mg PO; TAKE 2 CAPS IN THE MORNING AND 1 CAPS AT NIGHT; (DME) pen needle, diabetic [BD Ultra-Fine Leilani Pen Needle] 32 gauge x 5/32" needle See Rx Instructions .ROUTE .MEDSUPPLY Qty: 360 3RF Rx Instructions: Inject with new needle up to 4x a day solifenacin 5 mg tablet 5 mg PO DAILY calcitriol 0.25 mcg capsule 0.25 mcg PO DAILY famotidine 20 mg Tablet 20 mg PO DAILY Qty: 30 0RF Changed insulin glargine [Lantus Solostar U-100 Insulin] 100 unit/mL (3 mL) insulin pen 15 unit subcut QPM Qty: 1 0RF Discontinued amlodipine [Norvasc] 5 mg Tablet 5 mg PO QAM Qty: 30 0RF sodium bicarbonate 650 mg Tablet 650 mg PO BID Qty: 60 0RF No Action metoprolol succinate 25 mg tablet extended release 24 hr 12.5 mg PO QAM Qty: 45 1RF sodium bicarbonate 650 mg tablet 650 mg PO BID Discharge Orders: Discharge Order (Routine); Ordered 11/10/22 Ordered By: Carmelina Jacobo Admission Data Admit Date/Time: 10/31/22 15:30 Attending Provider: Carmelina Jacobo Admit Provider: Simone Thompson Primary Care Provider: She Davis Other Providers: Darrin Brito ; Raoul Carroll ; Mathew Sauer Other Interventions: Discharge Summary Assessment (RN) Last Done: 11/10/22 13:19 Coding Level of Care Code HOSP INP/OBS DISCH >30 MIN Diagnoses Acute respiratory failure with hypoxia J96.01 Influenza A J10.1 MADELEINE (acute kidney injury) N17.9 Chronic kidney disease, stage IV (severe) N18.4 Diabetes mellitus with neurological manifestations, uncontrolled E11.49; E11.65 MGUS (monoclonal gammopathy of unknown significance) D47.2 Liver transplant recipient Z94.4 Lumbar vertebral fracture S32.009A COVID-19 U07.1 Primary biliary cirrhosis K74.3 Volume overload E87.70 Pancytopenia D61.818 Neutropenia D70.9 Morbid obesity with BMI of 40.0-44.9, adult E66.01; Z68.41 DVT prophylaxis Z29.9
[2022-11-11] MEDS ORDERED: METOPROLOL SUCC 25MG EXT REL TAB PO SCH (09:00)
== END 2022-11-10 15:53 | disposition home or self-care (01) | DRG 193 ==
LOC: ED 12:32 → SUATTDRO 15:30 → 2S 15:30

== ENCOUNTER 2023-12-11 20:55 | Observation (INO) ==
[2023-12-11] MEDS: CALCIUM GLUCONATE 1,000 MG/60 ML BAG IV STA (21:50)
[2023-12-11 22:16] LABS: Basophils # (auto) 0.02 K/uL (0.00-0.20); Basophils % (auto) 0.8 %; Eosinophils # (auto) 0.06 K/uL (0.00-0.50); Eosinophils % (auto) 2.4 %; Hematocrit (blood only) 31.9 % (37.0-47.0); Hemoglobin 10.2 g/dl (12.0-16.0); Immature Granulocytes # (auto) 0.01 K/uL (0.01-0.20); Immature Granulocytes % (auto) 0.4 %; Lymphocytes # (auto) 0.93 K/uL (1.20-3.40); Lymphocytes % (auto) 37.5 %; Mean Corpuscular Hemoglobin 31.8 pg (25.0-34.0); Mean Corpuscular Volume 99.4 fL (80.0-100.0); Mean Platelet Volume 10.6 fL (9.4-12.4); Monocytes # (auto) 0.21 K/uL (0.11-0.59); Monocytes % (auto) 8.5 %; Neutrophils # (auto) 1.25 K/uL (1.40-6.50); Neutrophils % (auto) 50.4 %; Platelet Count 150 K/uL (130-400); RDW Coefficient of Variation 16.5 % (11.5-14.5); RDW Standard Deviation 59.6 fL (36.4-46.3); Red Blood Count 3.21 M/uL (4.20-5.40); White Blood Count 2.48 K/ul (4.8-10.8)
--- NOTE | 2023-12-11 22:17 | Emergency Department Note ---
Impression & Plan Acute hyperkalemia ED Provider Note NAME: JULIOCESAR LU AGE: 63 SEX: F : 1960 ARRIVES VIA: Walk-In INFORMANT: Patient, ED PROVIDER(S): Chapincito Murillo MD CHIEF COMPLAINT: Potassium elevated HPI: This is 63-year-old female with history of liver and renal transplant presenting for elevated potassium on outpatient lab work. She states that she has had elevated potassium in the past. She notes that she has had nauseousness today as well as fatigue but otherwise no significant abnormalities such as fever, chills, diarrhea or vomiting. ROS: See above HPI for pertinent positives & negatives. A total of 10 systems reviewed and were otherwise negative. PAST MEDICAL HISTORY: See Below PAST SURGICAL HISTORY: See Below FAMILY HISTORY: See Below SOCIAL HISTORY: See Below HOME MEDICATIONS: See Below ALLERGIES: See Below VITALS: See Below PHYSICAL EXAMINATION: General: resting comfortably in no acute distress Head: Normocephalic and atraumatic Eyes: Normal inspection, extraocular muscles intact Ear, nose, throat: Normal external exam Neck: Normal range of motion Respiratory: lungs clear to auscultation bilaterally Cardiovascular: Regular rate/rhythm, no murmur GI: soft, nontender, no guarding or rebound Extremities: nontender, moves all extremities Neuro: The patient awake and alert, appropriately conversive, no focal deficits, symmetric faces Skin: Warm, dry, and intact MEDICAL DECISION MAKING: This is a 63-year-old female with history of liver and renal transplant presenting for elevated potassium on outpatient blood work. [id number] testing here does reveal that is 5.9. Patient is bradycardic with [id number] elevated potassium as well as EKG as below. Due to the critical nature of this, will give calcium gluconate without artificial potassium. -ECG independently interpreted by me with sinus bradycardia, rate of 54, left axis deviation, normal CO, normal QRS, normal QTc, no ST segment elevations consistent with STEMI criteria, overall height of T waves is concerning for hypokalemia -Lab potassium level is 6 with elevated creatinine -Patient already given calcium gluconate on arrival. Will continue with other protocol including Lokelma, albuterol, insulin and dextrose -Will admit patient for hyperkalemia and CKD Differential diagnosis: Hyperkalemia, renal failure, ER treatment provided: See below Diagnostics interpreted by me: ECG: As above Cardiac Monitoring: An order was placed for continuous cardiac monitoring. The monitor shows a rate of 62 with sinus rhythm. Laboratory studies: As stated above and show below. Imaging studies: See below. Critical Care Note: I have personally spent 30 minutes of critical care time in the direct management of this patient. This includes bedside care, interpretation of diagnostic studies, and testing, discussion with consultants, patient, and family members, and other required patient management activities. This 30 minutes is in excess of all separately billable procedures. Past Med/Surg History Medical History Varices, esophageal DM type 2 (diabetes mellitus, type 2) ESRD (end stage renal disease) on dialysis Plaque psoriasis Hypertension Lumbar pain with radiation down both legs Bilateral foot-drop MGUS (monoclonal gammopathy of unknown significance) Osteopenia Peripheral neuropathy Vitamin D deficiency COPD (chronic obstructive pulmonary disease) Primary biliary cirrhosis Osteoarthritis GERD (gastroesophageal reflux disease) Esophageal varices Degenerative disc disease, lumbar Anemia of chronic disease 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) Surgical History S/P arteriovenous (AV) graft placement History of lumbar laminectomy for spinal cord decompression (04/22/21) Liver transplant recipient History of liver transplant (10/13/18) History of total abdominal hysterectomy and bilateral salpingo-oophorectomy History of section History of colonoscopy History of tooth extraction Nasal polyp History of tonsillectomy Family History Unknown Adopted Social History Smoking Status: Never smoker Second Hand Exposure: No; Do You Dip or Chew Tobacco: No; Hx Alcohol Use: No Hx Substance Use: No Preferred Language: Surinamese Communication Ability: Effective Visual Impairment: No Limitations Hearing Ability: Hard of Hearing [employer] Required: No Beliefs That Will Affect Care: None marital status: Current Living Situation: Spouse Current Living Situation Comment: Lives at home with , son, and daughter current occupational status: employed How many Children do You have: 3 Feels Safe at Home: Yes Childhood Exposure to Second-Hand Smoke: No Diet: low carbohydrate caffeine: Yes during the past year weight has: remained stable Dental Care, Regularly: No Physical Activity Frequency: Daily Seatbelt Use: always Sunscreen Use: No Assistive Devices: Cane, Glasses and Walker Allergies Allergies Allergy/AdvReac Type Severity Reaction Status Date / Time Iodinated Contrast Media Allergy Intermediate Sneezing Verified 11/02/23 11:56 and breaks out into a rash Penicillins Allergy Intermediate Hives Verified 11/02/23 11:56 metformin AdvReac Unknown Gastrointestinal Verified 11/02/23 11:56 Upset doxycycline AdvReac Vomiting Verified 12/11/23 23:28 Home Meds Home Medications Medication Instructions Recorded Confirmed ondansetron HCl 4 mg tablet 4 mg PO Q8H PRN n/v 03/25/23 12/11/23 metoprolol succinate 25 mg 25 mg PO QAM 06/11/23 12/11/23 tablet,extended release 24 hr blood-glucose sensor (Dexcom G7 08/17/23 12/11/23 Sensor device) eculizumab 300 mg/30 mL 300 mg IV .EVERY OTHER WEEK 12/11/23 12/11/23 intravenous solution ergocalciferol (vitamin D2) 1,250 1,250 mcg PO WK 12/11/23 12/11/23 mcg (50,000 unit) capsule insulin lispro 100 unit/mL 1 sliding scale dose subcut 12/11/23 12/11/23 subcutaneous pen USEASDIRECTD magnesium oxide 400 mg (241.3 mg 400 mg PO BIDM 12/11/23 12/11/23 magnesium) tablet mycophenolate mofetil 250 mg 250 mg PO AMHS 12/11/23 12/11/23 capsule pantoprazole 40 mg tablet,delayed 40 mg PO QAM 12/11/23 12/11/23 release sulfamethoxazole 400 1 tab PO QAM 12/11/23 12/11/23 mg-trimethoprim 80 mg tablet tacrolimus 1 mg capsule, See Rx Instructions .Route .COMPLEX 12/11/23 12/11/23 immediate-release valganciclovir 450 mg tablet 450 mg PO 2XWK 12/11/23 12/11/23 Previous Rx's Medication Instructions Recorded solifenacin 5 mg tablet 5 mg PO QAM #90 tabs 10/18/23 Results & Data (ED) Vital Signs Vital Signs - 24 hr 12/11/23 21:01 12/11/23 21:19 12/11/23 21:20 Temperature 36.8 C Temperature Source Temporal Artery Scan Pulse Rate 61 Pulse Rate [Apical] 55 L Pulse Rate from SpO2 Sensor Respiratory Rate 18 19 Respiratory Effort / Characteristics Non-Labored Spontaneous Non-Labored Spontaneous Respiratory Depth Normal Normal Respiratory Pattern Regular Blood Pressure 109/63 121/46 L Blood Pressure [Right Arm] 121/46 L Blood Pressure Mean 78 74 Blood Pressure Mean [Right Arm] 71 Pulse Oximetry 100 99 Oxygen Delivery Method Room Air Room Air Sepsis Recent Fever Within 48 Hours No Sepsis New/Unexplained Change in Mental Status No Sepsis Action Taken by Nursing No Action Required 12/11/23 21:20 12/11/23 21:24 12/11/23 21:30 Temperature Temperature Source Pulse Rate 54 L 54 L 55 L Pulse Rate [Apical] Pulse Rate from SpO2 Sensor 55 L 54 L Respiratory Rate 20 16 Respiratory Effort / Characteristics Respiratory Depth Respiratory Pattern Blood Pressure Blood Pressure [Right Arm] Blood Pressure Mean Blood Pressure Mean [Right Arm] Pulse Oximetry 99 100 Oxygen Delivery Method Sepsis Recent Fever Within 48 Hours Sepsis New/Unexplained Change in Mental Status Sepsis Action Taken by Nursing 12/11/23 21:30 12/11/23 21:54 12/11/23 21:54 Temperature Temperature Source Pulse Rate 55 L Pulse Rate [Apical] Pulse Rate from SpO2 Sensor Respiratory Rate 24 Respiratory Effort / Characteristics Respiratory Depth Respiratory Pattern Blood Pressure 99/67 L 117/51 L Blood Pressure [Right Arm] Blood Pressure Mean 74 63 Blood Pressure Mean [Right Arm] Pulse Oximetry Oxygen Delivery Method Sepsis Recent Fever Within 48 Hours Sepsis New/Unexplained Change in Mental Status Sepsis Action Taken by Nursing 12/11/23 22:00 12/11/23 22:00 12/11/23 23:00 Temperature Temperature Source Pulse Rate 56 L 60 Pulse Rate [Apical] Pulse Rate from SpO2 Sensor Respiratory Rate 25 H 22 Respiratory Effort / Characteristics Respiratory Depth Respiratory Pattern Blood Pressure 111/51 L Blood Pressure [Right Arm] Blood Pressure Mean 72 Blood Pressure Mean [Right Arm] Pulse Oximetry Oxygen Delivery Method Sepsis Recent Fever Within 48 Hours Sepsis New/Unexplained Change in Mental Status Sepsis Action Taken by Nursing 12/11/23 23:00 12/11/23 23:14 12/11/23 23:14 Temperature Temperature Source Pulse Rate 60 Pulse Rate [Apical] Pulse Rate from SpO2 Sensor Respiratory Rate 21 Respiratory Effort / Characteristics Respiratory Depth Respiratory Pattern Blood Pressure 117/48 L 136/63 Blood Pressure [Right Arm] Blood Pressure Mean 80 83 Blood Pressure Mean [Right Arm] Pulse Oximetry Oxygen Delivery Method Sepsis Recent Fever Within 48 Hours Sepsis New/Unexplained Change in Mental Status Sepsis Action Taken by Nursing 12/11/23 23:30 12/11/23 23:30 12/12/23 00:00 Temperature Temperature Source Pulse Rate 80 105 H Pulse Rate [Apical] Pulse Rate from SpO2 Sensor 80 105 H Respiratory Rate 18 19 Respiratory Effort / Characteristics Respiratory Depth Respiratory Pattern Blood Pressure 126/52 L 141/61 H Blood Pressure [Right Arm] Blood Pressure Mean 86 87 Blood Pressure Mean [Right Arm] Pulse Oximetry 100 100 Oxygen Delivery Method Room Air Room Air Sepsis Recent Fever Within 48 Hours Sepsis New/Unexplained Change in Mental Status Sepsis Action Taken by Nursing 12/12/23 00:30 Temperature Temperature Source Pulse Rate 99 H Pulse Rate [Apical] Pulse Rate from SpO2 Sensor 99 H Respiratory Rate 19 Respiratory Effort / Characteristics Respiratory Depth Respiratory Pattern Blood Pressure 137/60 Blood Pressure [Right Arm] Blood Pressure Mean 85 Blood Pressure Mean [Right Arm] Pulse Oximetry 100 Oxygen Delivery Method Room Air Sepsis Recent Fever Within 48 Hours Sepsis New/Unexplained Change in Mental Status Sepsis Action Taken by Nursing Laboratory Data 12/11/23 21:56 12/11/23 21:56 Lab Results 12/11/23 12/11/23 12/11/23 Range/Units 21:56 22:12 23:44 WBC 2.48 L (4.8-10.8) K/ul RBC 3.21 L (4.20-5.40) M/uL Hgb 10.2 L (12.0-16.0) g/dl POC Hgb 6.5 L* (12.0-16.0) g/dl Hct 31.9 L (37.0-47.0) % POC Hct 19 L* (37-47) % MCV 99.4 (80.0-100.0) fL MCH 31.8 (25.0-34.0) pg MCHC 32.0 (32.0-36.0) g/dL RDW Std Deviation 59.6 H (36.4-46.3) fL RDW Coeff of Paty 16.5 H (11.5-14.5) % Plt Count 150 (130-400) K/uL MPV 10.6 (9.4-12.4) fL Immature Gran % (Auto) 0.4 % Neut % (Auto) 50.4 % Lymph % (Auto) 37.5 % [place] % (Auto) 8.5 % Eos % (Auto) 2.4 % Baso % (Auto) 0.8 % Neut # (Auto) 1.25 L (1.40-6.50) K/uL Lymph # (Auto) 0.93 L (1.20-3.40) K/uL [place] # (Auto) 0.21 (0.11-0.59) K/uL Eos # (Auto) 0.06 (0.00-0.50) K/uL Baso # (Auto) 0.02 (0.00-0.20) K/uL Immature Gran # (Auto) 0.01 (0.01-0.20) K/uL PT 11.9 (9.0-12.0) Seconds INR 1.1 (0.9-1.1) APTT 28 (21-31) Seconds PTT Ratio 1.0 POC Sodium 140 (135-144) mmol/L Sodium 141 (136-145) mmol/L POC Potassium 5.9 H (3.3-5.0) mmol/L Potassium 6.0 H (3.5-5.1) mmol/L POC Chloride 114 H (101-112) mmol/L Chloride 116 H (98-107) mmol/L Carbon Dioxide 19 L (21-32) mmol/L POC Total CO2 19 L (24-31) mmol/L Anion Gap 6 (3-11) POC Anion Gap 15.0 L (16-25) mmol/L POC BUN 32 H (7-18) mg/dl BUN 36 H (6-23) mg/dl Creatinine 2.94 H (0.6-1.2) mg/dl POC Creatinine 3.4 H (0.6-1.3) mg/dl Est Cr Clr Drug Dosing 16.5 ml/min Est GFR ( Amer) 19.1 ml/min Est GFR (Non-Af Amer) 16.5 ml/min BUN/Creatinine Ratio 12.2 (10-20) Glucose 100 H (70-99(Fasting)) mg/dl POC Glucose 156 H (70-99) mg/dl POC Glucose (other) 99 (70-99) mg/dl Calcium 9.2 (8.6-10.3) mg/dl POC Ioniz Calcium Holley 1.33 H (1.12-1.32) mmol/l Total Bilirubin 0.8 (0.2-1.0) mg/dl AST 13 (13-39) U/L ALT 10 (7-52) U/L Alkaline Phosphatase 111 H (34-104) U/L Total Protein 6.3 (6.0-8.3) gm/dl Albumin 3.7 (3.4-5.0) gm/dl Globulin 2.6 (2.5-4.0) gm/dl Albumin/Globulin Ratio 1.4 (0.9-2) Administered Medications Discontinued Medications Albuterol (Albuterol 0.5% Neb Soln 2.5 Mg/0.5 Ml Vial) 10 mg NEB NOW STA Stop: 12/11/23 22:39 Last Admin: 12/11/23 23:03 Dose: 10 mg Documented By: LUIZ Dextrose (Dextrose 50% 50 Ml Syringe) 50 ml IV NOW STA Stop: 12/11/23 22:39 Last Admin: 12/11/23 23:03 Dose: 50 ml Documented By: LUIZ Calcium Gluconate () 1,000 mg in 60 mls @ 240 mls/hr IV NOW STA Stop: 12/11/23 21:54 Last Infusion: 12/11/23 22:15 Dose: Infused Documented By: Admin: 12/11/23 21:50 Dose: 240 mls/hr Documented By: LUIZ Calcium Gluconate 1,000 mg/ (Sodium Chloride) 60 mls @ 240 mls/hr IV NOW ONE Stop: 12/11/23 22:52 Last Infusion: 12/11/23 23:55 Dose: Infused Documented By: Admin: 12/11/23 23:03 Dose: 240 mls/hr Documented By: LUIZ Insulin Human Regular 10 units (/ Syringe) 9.9 mls @ 3 mls/sec IV ONE STA Stop: 12/11/23 22:39 Last Admin: 12/11/23 23:03 Dose: 3 mls/sec Documented By: LUIZ Co-signed By: JENI Miscellaneous (Stat Iv/Im) 1 each N/A NOW STA Stop: 12/11/23 22:39 Last Admin: 12/11/23 23:16 Dose: Not Given Documented By: LUIZ Discharge Plan Visit Data Chief Complaint: Abnormal Labs/Diagnostic Testing Stated Complaint: HIGH POTASSIUM ED Provider: Chapincito Murillo Discharge Problem: Acute hyperkalemia Forms Stand Alone Forms: My [facility] Prescriptions Prescriptions: No Action solifenacin 5 mg tablet 5 mg PO QAM Qty: 90 3RF ondansetron HCl 4 mg tablet 4 mg PO Q8H PRN (Reason: n/v) (DME) Dexcom G7 Sensor Device See Rx Instructions .Route Rx Instructions: As directed metoprolol succinate 25 mg tablet extended release 24 hr 25 mg PO QAM tacrolimus 1 mg capsule See Rx Instructions .ROUTE .COMPLEX Rx Instructions: take 3 mg orally in the morning and 2 mg orally at night mycophenolate mofetil 250 mg capsule 250 mg PO AMHS pantoprazole 40 mg tablet,delayed release (DR/EC) 40 mg PO QAM sulfamethoxazole-trimethoprim 400-80 mg tablet 1 tab PO QAM ergocalciferol (vitamin D2) 1,250 mcg (50,000 unit) Capsule 1,250 mcg PO WK Rx Instructions: mondays valganciclovir 450 mg tablet 450 mg PO 2XWK Rx Instructions: take 450 mg orally in the morning of MONDAYS & THURSDAYS magnesium oxide 400 mg (241.3 mg magnesium) tablet 400 mg PO BIDM insulin lispro [Humalog Pen] 100 unit/mL Insulin Pen 1 sliding scale dose SUBCUT USEASDIRECTD eculizumab 300 mg/30 mL Solution 300 mg IV .EVERY OTHER WEEK Rx Instructions: due dec Referrals Referrals: She Davis DO [Primary Care Provider] -
[2023-12-11 22:30] LABS: iSTAT Creatinine 3.4 mg/dl (0.6-1.3); iSTAT Hemoglobin 6.5 g/dl (12.0-16.0); iSTAT Ionized Calcium 1.33 mmol/l (1.12-1.32); iSTAT Potassium 5.9 mmol/L (3.3-5.0)
[2023-12-11 22:33] LABS: Albumin Globulin Ratio 1.4 (0.9-2); Albumin Level 3.7 gm/dl (3.4-5.0); BUN Creatinine Ratio 12.2 (10-20); Bilirubin,Total 0.8 mg/dl (0.2-1.0); Calcium 9.2 mg/dl (8.6-10.3); Creatinine Clr Calc Pharmacy 16.5 ml/min; Est GFR (African American) 19.1 ml/min; Est GFR (Non-African American) 16.5 ml/min; Globulin 2.6 gm/dl (2.5-4.0); Total Protein 6.3 gm/dl (6.0-8.3)
[2023-12-11 22:42] LABS: INR 1.1 (0.9-1.1); Partial Thromboplastin Time 28 Seconds (21-31); Prothrombin Time 11.9 Seconds (9.0-12.0)
--- NOTE | 2023-12-11 22:56 | History & Physical Report ---
Date of Service December 11, 2023 Assessment & Plan (1) Hyperkalemia: Plan: -Potassium of 6.4 as an outpatient on 12/10. 6.0 in the ED. -Continue cardiac monitoring. -Given calcium gluconate and insulin in the ED. -Albuterol also given in ED. -Continue sodium zirconium 10g 3 times daily. -CBC and CMP in the a.m. -ECGs daily. (2) Renal transplant, status post: Plan: -Patient is status post renal transplant back in November 2023, this was done at [facility] in [place]. -She has been following closely with the transplant team from [facility] and they have been adjusting her meds. -Creatinine of 2.94 which is improved slightly since 11/24. (3) GERD (gastroesophageal reflux disease): Plan: -Continue home medication. 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 -Continue home tacrolimus. (5) Hypertension: Plan: -Continue home medications. (6) Pancytopenia: Plan: -Pancytopenia that has been worked up previously with hematology oncology with bone marrow biopsies. -No significant change seen on labs (7) Hx of compression fracture of spine: Plan: -Status post laminectomy back on 04/22/2021. (8) Diabetes 1.5, managed as type 1: Plan: - Patient's home regimen held on admission - Continue BSG checks, sliding-scale insulin, hypoglycemic protocol History of Present Illness Chief Complaint: hyperkalemia Primary Care Provider: She Davis DO Patient is a 63-year-old female with past medical history of liver and renal transplant. Patient had a liver transplant secondary to Torres done in October 2018. Tacrolimus as prescribed. Patient then had a renal transplant secondary to end-stage renal disease in November 2023. Patient has been on eculizumab weekly. Patient also has a past medical history of anemia of chronic disease, pancytopenia and follows with hematology/oncology. Patient is also a type I diabetic with diabetic neuropathy, GERD, vitamin D deficiency, urinary incontinence, and status post laminectomy on 04/22/2021. Patient presented to the ED due to abnormal labs of hyperkalemia. Patient states that she feels fine. Does state though that today she felt little bit sluggish, tired, nauseous, and fatigued. Though overall did not feel any significantly different today. In talking with the patient, she states that at her last renal appointment they took her off her water pills and increased her tacrolimus though unsure to what amount. They also had her taking Bactrim every day due to concerns about infection of her surgical site. She denies any fevers, chills, vomiting, tenderness, rash, or abdominal pain. Allergies Allergy/AdvReac Type Severity Reaction Status Date / Time Iodinated Contrast Media Allergy Intermediate Sneezing Verified 11/02/23 11:56 and breaks out into a rash Penicillins Allergy Intermediate Hives Verified 11/02/23 11:56 metformin AdvReac Unknown Gastrointestinal Verified 11/02/23 11:56 Upset doxycycline AdvReac Vomiting Verified 12/11/23 23:28 Home Medications Medication Instructions Recorded Confirmed Type ondansetron HCl 4 mg tablet 4 mg PO Q8H PRN n/v 03/25/23 12/11/23 History metoprolol succinate 25 mg 25 mg PO QAM 06/11/23 12/11/23 History tablet,extended release 24 hr blood-glucose sensor (Dexcom G7 08/17/23 12/11/23 History Sensor device) solifenacin 5 mg tablet 5 mg PO QAM #90 tabs 10/18/23 12/11/23 Rx eculizumab 300 mg/30 mL 300 mg IV .EVERY OTHER WEEK 12/11/23 12/11/23 History intravenous solution ergocalciferol (vitamin D2) 1,250 1,250 mcg PO WK 12/11/23 12/11/23 History mcg (50,000 unit) capsule insulin lispro 100 unit/mL 1 sliding scale dose subcut 12/11/23 12/11/23 History subcutaneous pen USEASDIRECTD magnesium oxide 400 mg (241.3 mg 400 mg PO BIDM 12/11/23 12/11/23 History magnesium) tablet mycophenolate mofetil 250 mg 250 mg PO AMHS 12/11/23 12/11/23 History capsule pantoprazole 40 mg tablet,delayed 40 mg PO QAM 12/11/23 12/11/23 History release sulfamethoxazole 400 1 tab PO QAM 12/11/23 12/11/23 History mg-trimethoprim 80 mg tablet tacrolimus 1 mg capsule, See Rx Instructions .Route .COMPLEX 12/11/23 12/11/23 History immediate-release valganciclovir 450 mg tablet 450 mg PO 2XWK 12/11/23 12/11/23 History Past Med/Surg History Medical History Varices, esophageal DM type 2 (diabetes mellitus, type 2) ESRD (end stage renal disease) on dialysis Plaque psoriasis Hypertension Lumbar pain with radiation down both legs Bilateral foot-drop MGUS (monoclonal gammopathy of unknown significance) Osteopenia Peripheral neuropathy Vitamin D deficiency COPD (chronic obstructive pulmonary disease) Primary biliary cirrhosis Osteoarthritis GERD (gastroesophageal reflux disease) Esophageal varices Degenerative disc disease, lumbar Anemia of chronic disease 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) Surgical History S/P arteriovenous (AV) graft placement History of lumbar laminectomy for spinal cord decompression (04/22/21) Liver transplant recipient History of liver transplant (10/13/18) History of total abdominal hysterectomy and bilateral salpingo-oophorectomy History of section History of colonoscopy History of tooth extraction Nasal polyp History of tonsillectomy Family History Unknown Adopted Social History Smoking Status: Never smoker Second Hand Exposure: No; Do You Dip or Chew Tobacco: No; Hx Alcohol Use: No Hx Substance Use: No Preferred Language: Uzbek Communication Ability: Effective Visual Impairment: No Limitations Hearing Ability: Hard of Hearing Nurse Reviewer Required: No Beliefs That Will Affect Care: None marital status: Current Living Situation: Spouse and Family Current Living Situation Comment: Lives at home with , son, and daughter current occupational status: employed How many Children do You have: 3 Other Information That Helps Us Care for You: No Feels Safe at Home: Yes Safety Concerns: Feels Safe At This Time Childhood Exposure to Second-Hand Smoke: No Diet: low carbohydrate caffeine: Yes during the past year weight has: remained stable Dental Care, Regularly: No Physical Activity Frequency: Daily Seatbelt Use: always Sunscreen Use: No Assistive Devices: Cane, Glasses and Walker Review of Systems Review of Systems: All systems reviewed & are unremarkable except as noted in Subjective Physical Exam Physical Exam: Constitutional: well-appearing, no acute distress HEENT: NCAT, no conjunctival injection CV: regular rhythm, systolic murmur heard best at the left sternal border, extremities well-perfused, no LE edema Resp: CTABL, no wheezes/rales/rhonchi appreciated, no increased work of breathing GI: soft, nondistended, nontender, BS normoactive MSK: no gross deformities appreciated Skin: warm, dry, no rash appreciated. Well-healing surgical elsy on the right lower abdomen wall without any erythema or warmth. Neuro: alert, oriented, no focal neurologic deficit appreciated Results & Data Results & Data Vital Signs (Past 12 Hours) Vital Signs Temp Pulse Pulse Resp BP BP Pulse Ox 12/11/23 22:00 111/51 L 12/11/23 22:00 56 L 25 H 12/11/23 21:54 117/51 L 12/11/23 21:54 55 L 24 12/11/23 21:30 99/67 L 12/11/23 21:30 55 L 16 100 12/11/23 21:24 54 L 12/11/23 21:20 54 L 20 99 12/11/23 21:20 55 L 19 121/46 L 99 12/11/23 21:19 121/46 L 12/11/23 21:01 36.8 C 61 18 109/63 100 O2 Del Method 12/11/23 22:00 12/11/23 22:00 12/11/23 21:54 12/11/23 21:54 12/11/23 21:30 12/11/23 21:30 12/11/23 21:24 12/11/23 21:20 12/11/23 21:20 Room Air 12/11/23 21:19 12/11/23 21:01 Room Air Supervising Physician Co-Signing Physician Notes Attending addendum: I have physically seen this patient, have supervised the medical residents ac tivities, and agree with the H&P unless as otherwise noted. Assessment and Plan: Hyperkalemia/renal transplant 11/13/2023 at [facility]- Patient had routine surveillance laboratories performed in outpatient setting, potassium 6.4, and was referred to Zana Hurtado from transplant service at [facility]. Repeat laboratories here show potassium 6.0. From emergency department patient received the following: Calcium gluconate 1 g IV, 50 mL of D50, regular insulin 10 units IV and Lokelma. Patient had subsequent laboratories performed that showed potassium of 5.7, bi carbonate decreased from 19 down to 15 Patient received additional calcium gluconate 1 g IV, and 8 units of regular insulin IV . She was also started on bicarbonate drip, 150 mEq at 100 mL/h x 1 L. 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 Transplant date was 10/13/2018 Patient will be continued on her usual transplant medications of tacrolimus and mycophenolate and routine prophylaxis medications Diabetes mellitus- Continue home regimen with coverage Patient has received a course of D50 with 10 regular insulin IV to help treat hyperkalemia. Received second of a regular insulin IV, but no additional D50 at times EXTR, 224 and decreased to 209 (3) GERD (gastroesophageal reflux disease) Esophagitis presence: esophagitis presence not specified Qualified Code(s): K21.9 - Gastro-esophageal reflux disease without esophagitis
[2023-12-11] MEDS: CALCIUM GLUCONATE 10% 1,000 MG in SODIUM CHLOR 0.9% MINI-B 50 ML IV ONE (23:03)
[2023-12-11] MEDS: INSULIN HUMAN REGULAR PER UNIT 10 UNITS in SYRINGE 9.9 ML IV STA (23:03)
[2023-12-11] MEDS: ALBUTEROL 0.5% NEB SOLN 2.5 MG/0.5 ML VIAL NEB STA (23:03)
[2023-12-11] MEDS: DEXTROSE 50% 50 ML SYRINGE IV STA (23:03)
[2023-12-11] MEDS: STAT IV/IM STA (23:16)
[2023-12-12] MEDS ORDERED: GLUCOSE 10 TAB/TUBE PO PRN (02:56)
[2023-12-12] MEDS ORDERED: DEXTROSE 50% 50 ML SYRINGE IV PRN (02:56)
[2023-12-12] MEDS ORDERED: CARBOHYDRATES FOR HYPOGLYCEMIA PO PRN (02:56)
[2023-12-12] MEDS ORDERED: GLUCAGON FOR INJ 1 MG VIAL SQ PRN (02:56)
[2023-12-12] MEDS ORDERED: GLUCOSE 40% GEL 15 GM TUBE PO PRN (02:56)
[2023-12-12] MEDS: ONDANSETRON 4 MG OD TAB PO STA (04:11)
[2023-12-12] MEDS: MYCOPHENOLATE MOFETIL 250 MG CAP PO STA (04:35)
[2023-12-12] MEDS: TACROLIMUS 1 MG CAP PO STA (04:35)
[2023-12-12 04:54] LABS: Albumin Globulin Ratio 1.4 (0.9-2); Albumin Level 3.7 gm/dl (3.4-5.0); Bilirubin,Total 0.7 mg/dl (0.2-1.0); Calcium 9.7 mg/dl (8.6-10.3); Creatinine Clr Calc Pharmacy 16.1 ml/min; Est GFR (African American) 18.6 ml/min; Globulin 2.6 gm/dl (2.5-4.0); Potassium 5.7 mmol/L (3.5-5.1); Total Protein 6.3 gm/dl (6.0-8.3)
[2023-12-12 04:54] LABS: Basophils # (auto) 0.01 K/uL (0.00-0.20); Basophils % (auto) 0.3 %; Eosinophils # (auto) 0.01 K/uL (0.00-0.50); Eosinophils % (auto) 0.3 %; Hematocrit (blood only) 26.4 % (37.0-47.0); Hemoglobin 8.5 g/dl (12.0-16.0); Immature Granulocytes # (auto) 0.03 K/uL (0.01-0.20); Lymphocytes # (auto) 0.25 K/uL (1.20-3.40); Mean Corpuscular Hemoglobin 32.3 pg (25.0-34.0); Mean Corpuscular Hgb Conc 32.2 g/dL (32.0-36.0); Mean Corpuscular Volume 100.4 fL (80.0-100.0); Mean Platelet Volume 10.7 fL (9.4-12.4); Monocytes # (auto) 0.28 K/uL (0.11-0.59); Neutrophils # (auto) 2.54 K/uL (1.40-6.50); Neutrophils % (auto) 81.4 %; Platelet Count 131 K/uL (130-400); RDW Coefficient of Variation 16.9 % (11.5-14.5); Red Blood Count 2.63 M/uL (4.20-5.40); White Blood Count 3.12 K/ul (4.8-10.8)
[2023-12-12] MEDS ORDERED: STAT IV/IM STA (05:02)
[2023-12-12] MEDS: INSULIN HUMAN REGULAR PER UNIT 8 UNITS in SYRINGE 7.92 ML IV ONE (05:51)
[2023-12-12] MEDS: CALCIUM GLUCONATE 10% 1,000 MG in SODIUM CHLOR 0.9% MINI-B 50 ML IV ONE (05:52)
[2023-12-12] MEDS: SODIUM BICARBONATE 8.4% 150 MEQ in WATER, STERILE 1,000 ML IV SCH (06:00)
[2023-12-12] MEDS: SODIUM ZIRCONIUM CYCLOSILICATE 10 GM PACKET PO SCH (06:05)
--- NOTE | 2023-12-12 07:13 | Electrocardiogram Report ---
Test Reason : Blood Pressure : / mmHG Vent. Rate : 054 BPM Atrial Rate : 054 BPM P-R Int : 144 ms QRS Dur : 086 ms QT Int : 452 ms P-R-T Axes : 051 -33 051 degrees QTc Int : 428 ms Sinus bradycardia Left axis deviation Incomplete right bundle branch block Abnormal ECG When compared with ECG of 11-DEC-2022 12:47, ST no longer depressed in Inferior leads Nonspecific T wave abnormality no longer evident in Inferior leads QT has shortened Confirmed by Johnny Obrien ([id number]) on 12/12/2023 7:13:42 AM Referred By: REFERRED SELF Confirmed By:Jose Obrien
--- NOTE | 2023-12-12 08:17 | Hospitalist Progress Note ---
Date of Service December 12, 2023 Assessment & Plan (1) Hyperkalemia: Plan: Hyperkalemia and MADELEINE (previously Cr 2, was 3 on 11/24), recent renal transplant 11/13/23 complicated by thrombotic microangiopathy Hyperkalemia related to underlying renal dysfunction then increase in bactrim to daily dosing this week. Possibly this was increased over concern of surgical site infection Recurrent hyperkalemia since admission, monitoring serial BMP 6.5 - 5.9 - 5.7 ---> 6.2 --> 5.9 -had calcium, albuterol, dextrose/insulin x 2 -I ordered third round of D50/IV insulin 8 units this AM for potassium back up to 6.2 and another dose of lokelma (third dose since yesterday, no BM yet) -consulted food safety manager Dr. 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 Hx PBC and TORRES -Continue home tacrolimus -AM CMP (5) Hypertension: Plan: -Continue home medications: metoprolol (6) Pancytopenia: Plan: -Pancytopenia that has been worked up previously with hematology oncology with bone marrow biopsies. -No significant change seen on labs (7) Hx of compression fracture of spine: Plan: -Status post laminectomy back on 04/22/2021. (8) Diabetes 1.5, managed as type 1: Plan: - Patient's home regimen held on admission - Continue BSG checks, sliding-scale insulin, hypoglycemic protocol - hourly chemsticks this morning following two rounds of IV insulin Admission and Anticipated Discharge Date Admission Date: December 11, 2023 Subjective Rhona feels relatively well, urinated 125 mL between 8am and midmorning when I saw her. 200 UOP at 2-3 AM. R lower abdomen pain from surgery unchanged, no increasing pain at transplant site. No erythema at incision and stephenie are still present. Reports bactrim was increased from tiw to daily roughly four days ago Physical Exam 2 Physical Exam: PHYSICAL EXAMINATION Last 24h vital signs reviewed, see documentation in flowsheet General: comfortable appearing, no distress HEENT: Normocephalic, atraumatic, pupils round and equal, sclerae anicteric, no conjunctival injection, moist mucus membranes Lungs: Normal respiratory effort. Clear to auscultation bilaterally. No RRW Heart: Regular rate and rhythm, no murmurs. No JVD Abdomen: Soft, nontender, nondistended. Bowel sounds present. renal transplant site right lower quadrant incision is clean dry and intact no erythema or drainage Stephenie are intact left upper extremity AV graft with thrill present Extremities: Warm, dry, well-perfused. No extremity edema. Neuro: Alert and oriented x 4, face symmetric, moves 4 extremities well Psych: Normal affect and behavior Results & Data Results & Data Vital Signs (Past 12 Hours) Vital Signs Temp Pulse Pulse Resp BP BP Pulse Ox 12/12/23 07:45 12/12/23 07:15 36.8 C 86 19 102/52 L 99 12/12/23 03:45 94 H 12/12/23 03:00 36.4 C L 91 H 14 118/56 L 100 12/12/23 02:30 138/59 L 12/12/23 02:30 88 18 99 12/12/23 02:00 130/59 L 12/12/23 02:00 90 18 99 12/12/23 01:30 89 18 100 12/12/23 01:30 130/60 12/12/23 01:14 92 H 12/12/23 01:00 95 H 15 136/62 100 12/12/23 00:30 99 H 19 137/60 100 12/12/23 00:00 105 H 19 141/61 H 100 12/11/23 23:30 80 18 100 12/11/23 23:30 126/52 L 12/11/23 23:14 136/63 12/11/23 23:14 60 21 12/11/23 23:00 117/48 L 12/11/23 23:00 60 22 12/11/23 22:00 111/51 L 12/11/23 22:00 56 L 25 H 12/11/23 21:54 117/51 L 12/11/23 21:54 55 L 24 12/11/23 21:30 99/67 L 12/11/23 21:30 55 L 16 100 12/11/23 21:24 54 L 12/11/23 21:20 54 L 20 99 12/11/23 21:20 55 L 19 121/46 L 99 12/11/23 21:19 121/46 L 12/11/23 21:01 36.8 C 61 18 109/63 100 O2 Del Method 12/12/23 07:45 Room Air 12/12/23 07:15 Room Air 12/12/23 03:45 12/12/23 03:00 Room Air 12/12/23 02:30 12/12/23 02:30 12/12/23 02:00 12/12/23 02:00 12/12/23 01:30 12/12/23 01:30 12/12/23 01:14 12/12/23 01:00 Room Air 12/12/23 00:30 Room Air 12/12/23 00:00 Room Air 12/11/23 23:30 Room Air 12/11/23 23:30 12/11/23 23:14 12/11/23 23:14 12/11/23 23:00 12/11/23 23:00 12/11/23 22:00 12/11/23 22:00 12/11/23 21:54 12/11/23 21:54 12/11/23 21:30 12/11/23 21:30 12/11/23 21:24 12/11/23 21:20 12/11/23 21:20 Room Air 12/11/23 21:19 12/11/23 21:01 Room Air Laboratory Results 12/12/23 04:30 12/12/23 12:25 PG Care Time/CCT Total # of Minutes Spent Total Time Spent with Patient: I personally spent: 55 minutes today on clinical care activities including: reviewing chart notes and vital signs reviewing labs discussion with remediation bioanalytics consultant(s) examining and counseling the patient counseling the patient's family writing orders documentation Coding Level of Care Code 04254 SUB INP/OBS CARE 50MIN Diagnoses Hyperkalemia E87.5 Renal transplant, status post Z94.0 Gastroesophageal reflux disease, esophagitis presence not specified K21.9 Esophagitis presence: esophagitis presence not specified 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
[2023-12-12] MEDS: INSULIN ASPART PER UNIT CHARGE SC SCH (08:37)
--- NOTE | 2023-12-12 08:54 | Billing Data ---
Date of Service December 12, 2023 Coding Level of Care Code 63534 INT INP/OBS CARE
[2023-12-12] MEDS ORDERED: SULFA/TRIMETH 400/80MG TAB PO SCH (09:00)
[2023-12-12] MEDS ORDERED: SODIUM ZIRCONIUM CYCLOSILICATE 10 GM PACKET PO SCH (09:00)
[2023-12-12] MEDS: MYCOPHENOLATE MOFETIL 250 MG CAP PO SCH (09:01)
[2023-12-12] MEDS: OXYBUTYNIN CHLORIDE XL 5 MG TABCR PO SCH (09:02)
[2023-12-12] MEDS: PANTOprazole 40 MG TAB PO SCH (09:03)
[2023-12-12] MEDS: TACROLIMUS 1 MG CAP PO SCH ×2 (09:04→21:10)
[2023-12-12] MEDS: METOPROLOL SUCC 25MG EXT REL TAB PO SCH (09:06)
[2023-12-12 09:50] LABS: Albumin Level 3.7 gm/dl (3.4-5.0); BUN Creatinine Ratio 12.5 (10-20); Calcium 9.9 mg/dl (8.6-10.3); Creatinine Clr Calc Pharmacy 16.4 ml/min; Est GFR (Non-African American) 16.4 ml/min; Phosphorus 4.1 mg/dl (2.5-4.9); Potassium 6.2 mmol/L (3.5-5.1)
[2023-12-12] MEDS: ALBUTEROL 0.083% NEBU SOLN 3 ML VIAL NEB STA (10:08)
[2023-12-12] MEDS: INSULIN HUMAN REGULAR PER UNIT 8 UNITS in SYRINGE 7.92 ML IV STA (10:30)
[2023-12-12] MEDS: DEXTROSE 50% 50 ML SYRINGE IV STA (10:33)
[2023-12-12] MEDS: MAGNESIUM OXIDE 400 MG TAB PO SCH ×2 (10:45→12:52)
[2023-12-12] MEDS: SODIUM ZIRCONIUM CYCLOSILICATE 10 GM PACKET PO STA (10:49)
--- NOTE | 2023-12-12 11:48 | Nephrology Consultation ---
Date of Consultation December 12, 2023 Assessment & Plan (1) Hyperkalemia: No acute EKG changes. Calcium gluconate has been provided. Tacro continued as Rx for now. Defer fludrocortisone. s/p additional dose of Lokelma and additional IV insulin this AM. Follow up labs pending. Remains on low potassium diet. I have discussed with the HD RN rehabilitation manager. If hyperkalemia persists on follow up labs, emergent HD will be coordinated. This plan was also reviewed with the advertising coordinator from [facility]. (2) Renal transplant, status post: I have spoken to the transplant team at [facility] and discussed the patient + plan of care with the advertising coordinator. If repeat labs do not demonstrate a notable improvement, HD will be coordinated at [facility]. We will follow up with the transplant team tomorrow AM regarding plan of care moving forward as well. Tacrolimus and mycophenolate mofetil should be continued as Rx. Creatinine appears stable. Urine output is slightly low but non-oliguric. Hold Bactrim. Continue valganciclovir prophylaxis. Monitor serial BMP as ordered. Document strict I/O's. 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 Last dose 12/06. 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 Medical history is notable for chronic TMA associated with CNI therapy managed with Eculizumab as well as a monoclonal gammopathy of undetermined significance. Rhona has diabetes laura itus with type 1 physiology. She has a notable history of OA/DDD and spinal stenosis with a history of laminectomy in the past. Rhona was maintained on hemodialysis [facility] under the care of Dr. Acosta prior to her recent transplant. She has a left upper extremity AVG which was placed by Dr. Cano. Transplant was performed at [facility]. I have reached out to the fellow rehabilitation manager and advertising coordinator this morning but have not received any return calls. The transplant was reportedly complicated by delayed graft function. Rhona received 2 HD treatments while inpatient and a 3rd treatment as an outpatient within 1 week of discharge. She was referred to [facility] yesterday with blood work demonstrating hyperkalemia. Treatment has included insulin + dextrose, HCO3 replacement, and Lokelma. Hyperkalemia persists. Thankfully, there have not been any concerning acute EKG changes. Rhona reports some mild nausea but otherwise she feels well. She notes that Bactrim was recently increased due to concerns for possible infection at her surgical incision. She is non-oliguric. She denies fluid retention or edema. Appetite has been decreased. She is maintained on tacrolimus and mycophenolate mofetil for IS. Rhona reports that baseline creatinine post-transplant was ~3.0 mg/dL. Allergies Allergy/AdvReac Type Severity Reaction Status Date / Time Iodinated Contrast Media Allergy Intermediate Sneezing Verified 11/02/23 11:56 and breaks out into a rash Penicillins Allergy Intermediate Hives Verified 11/02/23 11:56 metformin AdvReac Unknown Gastrointestinal Verified 11/02/23 11:56 Upset doxycycline AdvReac Vomiting Verified 12/11/23 23:28 Home Medications Medication Instructions Recorded Confirmed Type ondansetron HCl 4 mg tablet 4 mg PO Q8H PRN n/v 03/25/23 12/11/23 History metoprolol succinate 25 mg 25 mg PO QAM 06/11/23 12/11/23 History tablet,extended release 24 hr blood-glucose sensor (Dexcom G7 08/17/23 12/11/23 History Sensor device) solifenacin 5 mg tablet 5 mg PO QAM #90 tabs 10/18/23 12/11/23 Rx eculizumab 300 mg/30 mL 300 mg IV .EVERY OTHER WEEK 12/11/23 12/11/23 History intravenous solution ergocalciferol (vitamin D2) 1,250 1,250 mcg PO WK 12/11/23 12/11/23 History mcg (50,000 unit) capsule insulin lispro 100 unit/mL 1 sliding scale dose subcut 12/11/23 12/11/23 History subcutaneous pen USEASDIRECTD magnesium oxide 400 mg (241.3 mg 400 mg PO BIDM 12/11/23 12/11/23 History magnesium) tablet mycophenolate mofetil 250 mg 250 mg PO AMHS 12/11/23 12/11/23 History capsule pantoprazole 40 mg tablet,delayed 40 mg PO QAM 12/11/23 12/11/23 History release sulfamethoxazole 400 1 tab PO QAM 12/11/23 12/11/23 History mg-trimethoprim 80 mg tablet tacrolimus 1 mg capsule, See Rx Instructions .Route .COMPLEX 12/11/23 12/11/23 History immediate-release valganciclovir 450 mg tablet 450 mg PO 2XWK 12/11/23 12/11/23 History Patient History Medical History (Updated 12/12/23 @ 12:15 by Raoul Carroll DO) Varices, esophageal DM type 2 (diabetes mellitus, type 2) Plaque psoriasis Hypertension Lumbar pain with radiation down both legs Bilateral foot-drop MGUS (monoclonal gammopathy of unknown significance) Osteopenia Peripheral neuropathy Vitamin D deficiency COPD (chronic obstructive pulmonary disease) Primary biliary cirrhosis Osteoarthritis GERD (gastroesophageal reflux disease) Esophageal varices Degenerative disc disease, lumbar Anemia of chronic disease 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) Surgical History (Updated 12/12/23 @ 11:49 by Raoul Carroll DO) Renal transplant, status post S/P arteriovenous (AV) graft placement LUE History of lumbar laminectomy for spinal cord decompression (04/22/21) L3-L5 laminectomy Liver transplant recipient [facility] 10/13/18 History of liver transplant (10/13/18) + cholecystectomy History of total abdominal hysterectomy and bilateral salpingo-oophorectomy + appendectomy History of section X 2 History of colonoscopy History of tooth extraction Nasal polyp X 3 REMOVED History of tonsillectomy Family History Unknown Adopted Social History Smoking Status: Never smoker Second Hand Exposure: No; Do You Dip or Chew Tobacco: No; Hx Alcohol Use: No Hx Substance Use: No Preferred Language: Guamanian Communication Ability: Effective Visual Impairment: No Limitations Hearing Ability: Hard of Hearing Cook Supervisor Required: No Beliefs That Will Affect Care: None marital status: Current Living Situation: Spouse and Family Current Living Situation Comment: Lives at home with , son, and daughter current occupational status: employed How many Children do You have: 3 Other Information That Helps Us Care for You: No Feels Safe at Home: Yes Safety Concerns: Feels Safe At This Time Childhood Exposure to Second-Hand Smoke: No Diet: low carbohydrate caffeine: Yes during the past year weight has: remained stable Dental Care, Regularly: No Physical Activity Frequency: Daily Seatbelt Use: always Sunscreen Use: No Assistive Devices: Cane, Glasses and Walker Review of Systems Review of Systems: All systems reviewed & are unremarkable except as noted in HPI & below Gastrointestinal: + nausea Physical Exam Constitutional: well developed; no acute distress Eyes: no scleral abnormality and no corneal abnormality ENMT: Mouth: no oral mucosal abnormality and oral mucous membranes not dry Neck: normal visual inspection and trachea midline Respiratory: normal respiratory effort Auscultation: lungs clear to auscultation bilaterally Cardiovascular: Rate/Rhythm: regular rate Heart Sounds: normal S1, normal S2 and + murmur Extremities: + AV fistula (LUE AVG); no edema Gastrointestinal (Abdomen): Percussion/Palpation: abdomen soft; abdomen nontender and no guarding RLQ surgical incision well healed with elsy intact. No erythema. No tenderness. No bruit. Musculoskeletal: Extremities: no cyanosis and no clubbing Skin: + turgor decreased; no jaundice Neurologic: Motor/Sensory: no tremor and no asterixis Psychiatric: Orientation: alert and oriented x 3 Results & Data Vital Signs (Past 12 Hours) Vital Signs Temp Pulse Pulse Resp BP BP Pulse Ox 12/12/23 11:07 36.8 C 84 19 125/62 99 12/12/23 10:08 68 100 12/12/23 09:03 82 117/58 L 12/12/23 07:45 12/12/23 07:15 36.8 C 86 19 102/52 L 99 12/12/23 03:45 94 H 12/12/23 03:00 36.4 C L 91 H 14 118/56 L 100 12/12/23 02:30 138/59 L 12/12/23 02:30 88 18 99 12/12/23 02:00 130/59 L 12/12/23 02:00 90 18 99 12/12/23 01:30 89 18 100 12/12/23 01:30 130/60 12/12/23 01:14 92 H 12/12/23 01:00 95 H 15 136/62 100 12/12/23 00:30 99 H 19 137/60 100 12/12/23 00:00 105 H 19 141/61 H 100 O2 Del Method 12/12/23 11:07 Room Air 12/12/23 10:08 Room Air 12/12/23 09:03 12/12/23 07:45 Room Air 12/12/23 07:15 Room Air 12/12/23 03:45 12/12/23 03:00 Room Air 12/12/23 02:30 12/12/23 02:30 12/12/23 02:00 12/12/23 02:00 12/12/23 01:30 12/12/23 01:30 12/12/23 01:14 12/12/23 01:00 Room Air 12/12/23 00:30 Room Air 12/12/23 00:00 Room Air Laboratory Results Laboratory Results - last 24 hr 12/11/23 12/11/23 12/11/23 21:56 22:12 23:44 WBC 2.48 L RBC 3.21 L Hgb 10.2 L POC Hgb 6.5 L* Hct 31.9 L POC Hct 19 L* MCV 99.4 MCH 31.8 MCHC 32.0 RDW Std Deviation 59.6 H RDW Coeff of Paty 16.5 H Plt Count 150 MPV 10.6 Immature Gran % (Auto) 0.4 Neut % (Auto) 50.4 Lymph % (Auto) 37.5 [place] % (Auto) 8.5 Eos % (Auto) 2.4 Baso % (Auto) 0.8 Neut # (Auto) 1.25 L Lymph # (Auto) 0.93 L [place] # (Auto) 0.21 Eos # (Auto) 0.06 Baso # (Auto) 0.02 Immature Gran # (Auto) 0.01 PT 11.9 INR 1.1 APTT 28 PTT Ratio 1.0 POC Sodium 140 Sodium 141 POC Potassium 5.9 H Potassium 6.0 H POC Chloride 114 H Chloride 116 H Carbon Dioxide 19 L POC Total CO2 19 L Anion Gap 6 POC Anion Gap 15.0 L POC BUN 32 H BUN 36 H Creatinine 2.94 H POC Creatinine 3.4 H Est Cr Clr Drug Dosing 16.5 Est GFR ( Amer) 19.1 Est GFR (Non-Af Amer) 16.5 BUN/Creatinine Ratio 12.2 Glucose 100 H POC Glucose 156 H POC Glucose (other) 99 Calcium 9.2 POC Ioniz Calcium Holley 1.33 H Phosphorus Total Bilirubin 0.8 AST 13 ALT 10 Alkaline Phosphatase 111 H Total Protein 6.3 Albumin 3.7 Globulin 2.6 Albumin/Globulin Ratio 1.4 12/12/23 12/12/23 12/12/23 04:17 04:19 04:30 WBC 3.12 L RBC 2.63 L Hgb 8.5 L POC Hgb Hct 26.4 L POC Hct MCV 100.4 H MCH 32.3 MCHC 32.2 RDW Std Deviation 61.0 H RDW Coeff of Paty 16.9 H Plt Count 131 MPV 10.7 Immature Gran % (Auto) 1.0 Neut % (Auto) 81.4 Lymph % (Auto) 8.0 [place] % (Auto) 9.0 Eos % (Auto) 0.3 Baso % (Auto) 0.3 Neut # (Auto) 2.54 Lymph # (Auto) 0.25 L [place] # (Auto) 0.28 Eos # (Auto) 0.01 Baso # (Auto) 0.01 Immature Gran # (Auto) 0.03 PT INR APTT PTT Ratio POC Sodium Sodium 139 POC Potassium Potassium 5.7 H POC Chloride Chloride 111 H Carbon Dioxide 15 L POC Total CO2 Anion Gap 13 H POC Anion Gap POC BUN BUN 36 H Creatinine 3.01 H POC Creatinine Est Cr Clr Drug Dosing 16.1 Est GFR ( Amer) 18.6 Est GFR (Non-Af Amer) 16.0 BUN/Creatinine Ratio 12.0 Glucose 224 H POC Glucose 216 H POC Glucose (other) Calcium 9.7 POC Ioniz Calcium Holley Phosphorus Total Bilirubin 0.7 AST 14 ALT 10 Alkaline Phosphatase 105 H Total Protein 6.3 Albumin 3.7 Globulin 2.6 Albumin/Globulin Ratio 1.4 12/12/23 12/12/23 12/12/23 06:23 07:14 07:19 WBC RBC Hgb POC Hgb Hct POC Hct MCV MCH MCHC RDW Std Deviation RDW Coeff of Paty Plt Count MPV Immature Gran % (Auto) Neut % (Auto) Lymph % (Auto) [place] % (Auto) Eos % (Auto) Baso % (Auto) Neut # (Auto) Lymph # (Auto) [place] # (Auto) Eos # (Auto) Baso # (Auto) Immature Gran # (Auto) PT INR APTT PTT Ratio POC Sodium Sodium POC Potassium Potassium POC Chloride Chloride Carbon Dioxide POC Total CO2 Anion Gap POC Anion Gap POC BUN BUN Creatinine POC Creatinine Est Cr Clr Drug Dosing Est GFR ( Amer) Est GFR (Non-Af Amer) BUN/Creatinine Ratio Glucose POC Glucose 209 H 381 H* 171 H POC Glucose (other) Calcium POC Ioniz Calcium Holley Phosphorus Total Bilirubin AST ALT Alkaline Phosphatase Total Protein Albumin Globulin Albumin/Globulin Ratio 12/12/23 12/12/23 12/12/23 07:21 09:14 11:03 WBC RBC Hgb POC Hgb Hct POC Hct MCV MCH MCHC RDW Std Deviation RDW Coeff of Paty Plt Count MPV Immature Gran % (Auto) Neut % (Auto) Lymph % (Auto) [place] % (Auto) Eos % (Auto) Baso % (Auto) Neut # (Auto) Lymph # (Auto) [place] # (Auto) Eos # (Auto) Baso # (Auto) Immature Gran # (Auto) PT INR APTT PTT Ratio POC Sodium Sodium 136 POC Potassium Potassium 6.2 H* POC Chloride Chloride 108 H Carbon Dioxide 17 L POC Total CO2 Anion Gap 11 POC Anion Gap POC BUN BUN 37 H Creatinine 2.96 H POC Creatinine Est Cr Clr Drug Dosing 16.4 Est GFR ( Amer) 19.0 Est GFR (Non-Af Amer) 16.4 BUN/Creatinine Ratio 12.5 Glucose 234 H POC Glucose 175 H 285 H POC Glucose (other) Calcium 9.9 POC Ioniz Calcium Holley Phosphorus 4.1 Total Bilirubin AST ALT Alkaline Phosphatase Total Protein Albumin 3.7 Globulin Albumin/Globulin Ratio Diagnostic Findings EKG: Sinus bradycardia Left axis deviation Incomplete right bundle branch block Abnormal ECG When compared with ECG of 11-DEC-2022 12:47, ST no longer depressed in Inferior leads Nonspecific T wave abnormality no longer evident in Inferior leads QT has shortened PG Care Time/CCT Total # of Minutes Spent Total Time Spent with Patient: Total time spent is greater than 50% in coordination of care (as documented) at patient's floor/unit and/or counseling patient: Coding Level of Care Code 52829 IN/OBS CONSULT LVL 5,80M Diagnoses Hyperkalemia E87.5 Renal transplant, status post Z94.0 Liver transplant recipient Z94.4 MGUS (monoclonal gammopathy of unknown significance) D47.2 Thrombotic microangiopathy M31.10
--- NOTE | 2023-12-12 12:27 | Ultrasound Report ---
RENAL TRANSPLANT DOPPLER ULTRASOUND CLINICAL HISTORY: Acute kidney injury. COMPARISON STUDY: CT of the abdomen and pelvis May 24, 2023. TECHNIQUE: Marques scale sonography of the [place] kidneys was performed. Grayscale, color and duplex Dop pler sonography of the right lower quadrant renal allograft was performed. FINDINGS: There is no hydronephrosis within the [place] kidneys. The [place] kidneys were partially obs cured by suboptimal penetration. The right lower quadrant renal allograft measures 9.3 x 4.7 x 5.8 cm . There is mild allograft collecting system dilatation. Inferior to the allograft, there is a mildly complex fluid collection which measures 4.5 x 2.6 x 3.9 cm. Renal transplant artery and vein are patton nt. Peak systolic velocity within the right external iliac artery was 113 cm/s. Peak systolic velocit y within the transplant artery was 315 cm/s. Brisk systolic upstrokes within the segmental vessels we re noted. Resistive indices within the allograft range from 0.61-0.76. IMPRESSION: 1. Mild right lower quadrant renal allograft collecting system dilatation. 4.5 x 2.6 x 3.9 cm fluid c ollection inferior to the allograft. This favors a postoperative fluid collection and can be assessed on follow-up exams to ensure resolution. 2. Patent allograft vessels. Mildly elevated velocities within the renal transplant artery however se gmental waveforms and resistive indices are within normal limits. The elevated velocities may be due to edema at the anastomosis given recent transplant. A significant renal artery stenosis is considere d less likely however short-term sonographic follow-up is recommended. ACT 112: Negative or not required by law. Electronically signed by: Omar Orlando M.D. 12/12/2023 12:25 PM
[2023-12-12 12:58] LABS: BUN Creatinine Ratio 12.8 (10-20); Calcium 9.5 mg/dl (8.6-10.3); Creatinine Clr Calc Pharmacy 16.8 ml/min; Est GFR (African American) 19.4 ml/min; Est GFR (Non-African American) 16.8 ml/min; Potassium 5.8 mmol/L (3.5-5.1)
[2023-12-12 13:24] LABS: Appearance Urine Clear (Clear); Bacteria Urine Automated Negative (Negative); Bilirubin Urine Negative (Negative); Blood Urine Negative (Negative); Color Urine Yellow; Epithelial Cell Urine Auto >30 /lpf (0-5); Glucose Urine UA Negative (Negative); Ketones Urine Negative (Negative); Leukocyte Esterase Urine Trace (Negative); Nitrite Urine Negative (Negative); Protein Urine Trace (Negative); Specific Gravity Urine 1.014 (1.000-1.030); Urobilinogen Urine Negative (Negative); pH Urine 6.5 (4.5-7.5)
[2023-12-12 13:41] LABS: Renal Epithelial Cells Urine 0-5 /lpf (0-5)
[2023-12-12] MEDS ORDERED: ONDANSETRON INJ 2 MG/ML 2 ML VIAL IV PRN (18:15)
--- NOTE | 2023-12-13 07:18 | Hospitalist Progress Note ---
Date of Service December 13, 2023 Assessment & Plan (1) Hyperkalemia: Plan: Hyperkalemia and MADELEINE (previously Cr 2, was 3 on 11/24), 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 Bactrim was increased over concern of surgical site infection - increased redness inferior part of wound, appears resolved. -three rounds of D50/IV insulin and serial doses of lokelma 12/11-12/12 and finally had hemodialysis afternoon of 12/12. Hydrated with sodium bicarbonate IV, metabolic acidosis improved. -consulted registration rep who contacted transplant program at [facility] 12/12 -continue tacrolimus and MMF, tac level 12/11 was 7.0 -bactrim stopped for hyperkalemia, will need alternate PJP prophylaxis -UA without significant pyuria and culture is contaminated/yennifer -placed long for accurate UOP - UOP much improved overnight was 650 on 12/13 and 200 so far this am -renal US 12/12 - postoperative fluid collection, patent allograft vessels, elevated velocities maybe related to edema at anastomosis because of recent transplant -continue sodium bicarbonate drip, metabolic acidosis improved bicarb now 20 -UOP improved today -K improved but remains elevated at 5.4, Cr 2.38 (but had HD run yesterday) -Hct drop 12/12, no bleeding, thrombocytopenia within range of old/prior labs, c/w dilutional Discussed with registration rep Dr. Carroll and coordinator Shira Moe at [facility] today -has multiple appt tomorrow in [place] (transplant clinic, urology?, heme/onc) -reasonable for discharge today and will get labs tomorrow in transplant clinic -low K diet, gave Rx for daily patiromer, gave dose this am -hold bactrim pending discussion with her transplant physician - consider replacing with dapsone, consider adding fludrocortisone -fluid collection seen on ultrasound likely postop changes - requested CD be made with images of US she will hand carry to appt (2) Renal transplant, status post: Plan: Thrombotic microangiopathy- Secondary to tacrolimus/renal transplant Treated with Eculizumab Patient will be continued on her usual transplant medications of tacrolimus and mycophenolate -bactrim held (3) GERD (gastroesophageal reflux disease): Plan: -Continue home medication. 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 Hx PBC and TORRES -Continue home tacrolimus -CMP normal 12/12, INR normal on admission (5) Hypertension: Plan: -Continue home medications: metoprolol (6) Pancytopenia: Plan: -Pancytopenia that has been worked up previously with hematology oncology with bone marrow biopsies. -No significant change seen on labs, anticipated dilutional drop in Hct and platelets (7) Hx of compression fracture of spine: Plan: -Status post laminectomy back on 04/22/2021. (8) Diabetes 1.5, managed as type 1: Plan: - home regimen - lispro Admission and Anticipated Discharge Date Admission Date: December 11, 2023 Subjective dialysis yesterday afternoon feels well UOP has increased compared to yesterday Nausea yesterday but resolved eating well No abdominal pain, soreness RLQ postop unchanged from recent Physical Exam 2 Physical Exam: PHYSICAL EXAMINATION Last 24h vital signs reviewed, see documentation in flowsheet General: comfortable appearing, no distress HEENT: Normocephalic, atraumatic, pupils round and equal, sclerae anicteric, no conjunctival injection, moist mucus membranes Lungs: Normal respiratory effort. Clear to auscultation bilaterally. No RRW Heart: Regular rate and rhythm, no murmurs. No JVD Abdomen: Soft, nontender, nondistended. Bowel sounds present. renal transplant site right lower quadrant nontender left upper extremity AV graft Extremities: Warm, dry, well-perfused. No extremity edema. Neuro: Alert and oriented x 4, face symmetric, moves 4 extremities well Psych: Normal affect and behavior Results & Data Results & Data Vital Signs (Past 12 Hours) Vital Signs Temp Pulse Pulse Resp BP Pulse Ox O2 Del Method 12/13/23 03:00 37.2 C 67 18 122/76 97 Room Air 12/12/23 22:48 37.3 C 69 18 124/68 97 Room Air 12/12/23 19:14 68 Laboratory Results Renal Ultrasound 12/12/23 10:49 RENAL TRANSPLANT DOPPLER ULTRASOUND CLINICAL HISTORY: Acute kidney injury. COMPARISON STUDY: CT of the abdomen and pelvis May 24, 2023. TECHNIQUE: Marques scale sonography of the [place] kidneys was performed. Grayscale, color and duplex Doppler sonography of the right lower quadrant renal allograft was performed. FINDINGS: There is no hydronephrosis within the [place] kidneys. The [place] kidneys were partially obscured by suboptimal penetration. The right lower quadrant renal allograft measures 9.3 x 4.7 x 5.8 cm. There is mild allograft collecting system dilatation. Inferior to the allograft, there is a mildly complex fluid collection which measures 4.5 x 2.6 x 3.9 cm. Renal transplant artery and vein are patent. Peak systolic velocity within the right external iliac artery was 113 cm/s. Peak systolic velocity within the transplant artery was 315 cm/s. Brisk systolic upstrokes within the segmental vessels were noted. Resistive indices within the allograft range from 0.61-0.76. IMPRESSION: 1. Mild right lower quadrant renal allograft collecting system dilatation. 4.5 x 2.6 x 3.9 cm fluid collection inferior to the allograft. This favors a postoperative fluid collection and can be assessed on follow-up exams to ensure resolution. 2. Patent allograft vessels. Mildly elevated velocities within the renal transplant artery however segmental waveforms and resistive indices are within normal limits. The elevated velocities may be due to edema at the anastomosis given recent transplant. A significant renal artery stenosis is considered less likely however short-term sonographic follow-up is recommended. ACT 112: Negative or not required by law. Electronically signed by: Omar Orlando M.D. 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
[2023-12-13 07:52] LABS: Hematocrit (blood only) 23.8 % (37.0-47.0); Hemoglobin 7.8 g/dl (12.0-16.0); Mean Corpuscular Hemoglobin 31.7 pg (25.0-34.0); Mean Corpuscular Hgb Conc 32.8 g/dL (32.0-36.0); Mean Corpuscular Volume 96.7 fL (80.0-100.0); Mean Platelet Volume 10.8 fL (9.4-12.4); Platelet Count 107 K/uL (130-400); RDW Coefficient of Variation 16.9 % (11.5-14.5); RDW Standard Deviation 58.2 fL (36.4-46.3); Red Blood Count 2.46 M/uL (4.20-5.40); White Blood Count 2.41 K/ul (4.8-10.8)
[2023-12-13 08:06] LABS: Albumin Globulin Ratio 1.3 (0.9-2); Albumin Level 3.1 gm/dl (3.4-5.0); BUN Creatinine Ratio 8.8 (10-20); Bilirubin,Total 0.9 mg/dl (0.2-1.0); Calcium 8.3 mg/dl (8.6-10.3); Creatinine Clr Calc Pharmacy 20.4 ml/min; Est GFR (African American) 24.7 ml/min; Est GFR (Non-African American) 21.3 ml/min; Globulin 2.3 gm/dl (2.5-4.0); Potassium 5.4 mmol/L (3.5-5.1); Total Protein 5.4 gm/dl (6.0-8.3)
[2023-12-13] MEDS: ERGOCALCIFEROL 1250 MCG (50,000 UNITS) CAP PO SCH (08:22)
[2023-12-13] MEDS: VALGANCICLOVIR HCL 450 MG TABLET PO SCH (08:36)
[2023-12-13] MEDS ORDERED: SODIUM ZIRCONIUM CYCLOSILICATE 10 GM PACKET PO ONE (09:23)
[2023-12-13] MEDS: SODIUM ZIRCONIUM CYCLOSILICATE 10 GM PACKET PO SCH (10:25)
--- NOTE | 2023-12-13 10:28 | Nephrology Progress Note ---
Date of Service December 13, 2023 Assessment & Plan (1) Hyperkalemia: Plan: Completed 2 hours of emergent HD yesterday. I suspect hyperkalemia was mediated by diet, Bactrim, CNI, and kidney dysfunction. It is reasonable to attempt medical management moving forward. She will require close outpatient follow up. This can be completed with her transplant team. I discussed the plan of care with Dr. Lindsey and have placed a call to Rhona's docent coordinator. She has follow up in [place] tomorrow. I will defer considerations regarding possible benefits of fludrocortisone +/- switching Bactrim to Dapsone to the transplant team. Home nursing scheduled to draw labs on . Literature on low potassium diet provided. (2) Renal transplant, status post: Plan: I have spoken to the transplant team at [facility] and discussed the patient + plan of care with the docent coordinator. I Tacrolimus and mycophenolate mofetil should be continued as Rx. Noted chronic low blood counts. This is being monitored. Urine studies demonstrating trace protein and a few RBC's, nothing notably concerning. US of the allograft notable for slightly elevated velocities in the transplant artery but otherwise no concerning changes. There is some mild dilation of the collecting system and a 4.5 cm fluid collection inferior to the allograft.This study is being placed on a CD to be sent with Rhona at discharge. She has follow up with urology tomorrow. Good urine output reported overnight. (3) Liver transplant recipient: (4) MGUS (monoclonal gammopathy of unknown significance): Plan: Follow up with hematology scheduled for tomorrow. 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 Last dose 12/06. Admission and Anticipated Discharge Date Admission Date: December 13, 2023 Subjective No acute events overnight. No complaints this AM. Rhona feels well. She tolerated HD yesterday without complications. Completed 2 hours of HD. She reports good urine output. Low potassium diet reviewed. She is scheduled for follow up with urology, transplant team, and hematology in [place] tomorrow. She hopes to be discharged home today. Review of Systems Review of Systems: All systems reviewed & are unremarkable except as noted in HPI & below Physical Exam Constitutional: well developed; no acute distress Eyes: no scleral abnormality and no corneal abnormality ENMT: Mouth: no oral mucosal abnormality and oral mucous membranes not dry Neck: normal visual inspection and trachea midline Respiratory: normal respiratory effort Auscultation: lungs clear to a uscultation bilaterally Cardiovascular: Rate/Rhythm: regular rate Heart Sounds: normal S1, normal S2 and + murmur Extremities: + AV fistula (LUE AVG); no edema Gastrointestinal (Abdomen): Percussion/Palpation: abdomen soft; abdomen nonten deidra and no guarding Musculoskeletal: Extremities: no cyanosis and no clubbing Skin: normal turgor and + turgor decreased; no lesions and no jaundice Neurologic: Motor/Sensory: no tremor and no asterixis Psychiatric: Orientation: alert and oriented x 3 Results & Data Vital Signs (Past 12 Hours) Vital Signs Temp Pulse Pulse Resp BP Pulse Ox O2 Del Method 12/13/23 09:31 36.7 C 84 70 19 115/63 95 12/13/23 09:19 12/13/23 07:11 36.7 C 70 19 115/63 95 Room Air 12/13/23 03:00 37.2 C 67 18 122/76 97 Room Air 12/12/23 22:48 37.3 C 69 18 124/68 97 Room Air O2 Del Method 12/13/23 09:31 12/13/23 09:19 Room Air 12/13/23 07:11 12/13/23 03:00 12/12/23 22:48 Laboratory Results Laboratory Results - last 24 hr 12/12/23 12/12/23 12/12/23 11:03 12:13 12:25 WBC RBC Hgb Hct MCV MCH MCHC RDW Std Deviation RDW Coeff of Paty Plt Count MPV Sodium 135 L Potassium 5.8 H Chloride 107 Carbon Dioxide 20 L Anion Gap 8 BUN 37 H Creatinine 2.90 H Est Cr Clr Drug Dosing 16.8 Est GFR ( Amer) 19.4 Est GFR (Non-Af Amer) 16.8 BUN/Creatinine Ratio 12.8 Glucose 169 H POC Glucose 285 H 177 H Calcium 9.5 Total Bilirubin AST ALT Alkaline Phosphatase Total Protein Albumin Globulin Albumin/Globulin Ratio Urine Color Urine Appearance Urine pH Ur Specific [place] Urine Protein Urine Glucose (UA) Urine Ketones Urine Blood Urine Nitrite Urine Bilirubin Urine Urobilinogen Ur Leukocyte Esterase Urine WBC (Auto) Urine RBC (Auto) U Hyaline Cast (Auto) U Epithel Cells (Auto) Urine Bacteria (Auto) Ur Renal Epithelial Cell Hep Bs Antigen Hep Bs Ag Confirmation Hep Bs Antibody, Quant 12/12/23 12/12/23 12/12/23 13:14 13:59 17:31 WBC RBC Hgb Hct MCV MCH MCHC RDW Std Deviation RDW Coeff of Paty Plt Count MPV Sodium Potassium Chloride Carbon Dioxide Anion Gap BUN Creatinine Est Cr Clr Drug Dosing Est GFR ( Amer) Est GFR (Non-Af Amer) BUN/Creatinine Ratio Glucose POC Glucose 240 H 241 H 109 H Calcium Total Bilirubin AST ALT Alkaline Phosphatase Total Protein Albumin Globulin Albumin/Globulin Ratio Urine Color Urine Appearance Urine pH Ur Specific [place] Urine Protein Urine Glucose (UA) Urine Ketones Urine Blood Urine Nitrite Urine Bilirubin Urine Urobilinogen Ur Leukocyte Esterase Urine WBC (Auto) Urine RBC (Auto) U Hyaline Cast (Auto) U Epithel Cells (Auto) Urine Bacteria (Auto) Ur Renal Epithelial Cell Hep Bs Antigen Hep Bs Ag Confirmation Hep Bs Antibody, Quant 12/12/23 12/12/23 12/13/23 20:10 Unknown 07:10 WBC RBC Hgb Hct MCV MCH MCHC RDW Std Deviation RDW Coeff of Paty Plt Count MPV Sodium Potassium Chloride Carbon Dioxide Anion Gap BUN Creatinine Est Cr Clr Drug Dosing Est GFR ( Amer) Est GFR (Non-Af Amer) BUN/Creatinine Ratio Glucose POC Glucose 134 H 172 H Calcium Total Bilirubin AST ALT Alkaline Phosphatase Total Protein Albumin Globulin Albumin/Globulin Ratio Urine Color Yellow Urine Appearance Clear Urine pH 6.5 Ur Specific [place] 1.014 Urine Protein Trace H Urine Glucose (UA) Negative Urine Ketones Negative Urine Blood Negative Urine Nitrite Negative Urine Bilirubin Negative Urine Urobilinogen Negative Ur Leukocyte Esterase Trace H Urine WBC (Auto) 1-5 Urine RBC (Auto) 5-10 H U Hyaline Cast (Auto) 1-5 U Epithel Cells (Auto) >30 H Urine Bacteria (Auto) Negative Ur Renal Epithelial Cell 0-5 Hep Bs Antigen Hep Bs Ag Confirmation Hep Bs Antibody, Quant 12/13/23 07:22 WBC 2.41 L RBC 2.46 L Hgb 7.8 L Hct 23.8 L MCV 96.7 MCH 31.7 MCHC 32.8 RDW Std Deviation 58.2 H RDW Coeff of Paty 16.9 H Plt Count 107 L MPV 10.8 Sodium 136 Potassium 5.4 H Chloride 104 Carbon Dioxide 28 Anion Gap 4 BUN 21 Creatinine 2.38 H D Est Cr Clr Drug Dosing 20.4 Est GFR ( Amer) 24.7 Est GFR (Non-Af Amer) 21.3 BUN/Creatinine Ratio 8.8 L Glucose 178 H POC Glucose Calcium 8.3 L Total Bilirubin 0.9 AST 11 L ALT 8 Alkaline Phosphatase 94 Total Protein 5.4 L Albumin 3.1 L Globulin 2.3 L Albumin/Globulin Ratio 1.3 Urine Color Urine Appearance Urine pH Ur Specific [place] Urine Protein Urine Glucose (UA) Urine Ketones Urine Blood Urine Nitrite Urine Bilirubin Urine Urobilinogen Ur Leukocyte Esterase Urine WBC (Auto) Urine RBC (Auto) U Hyaline Cast (Auto) U Epithel Cells (Auto) Urine Bacteria (Auto) Ur Renal Epithelial Cell Hep Bs Antigen Pending Hep Bs Ag Confirmation Pending Hep Bs Antibody, Quant Pending Diagnostic Findings RENAL TRANSPLANT DOPPLER ULTRASOUND COMPARISON STUDY: CT of the abdomen and pelvis May 24, 2023. TECHNIQUE: Marques scale sonography of the [place] kidneys was performed. Grayscale, color and duplex Doppler sonography of the right lower quadrant renal allograft was performed. FINDINGS: There is no hydronephrosis within the [place] kidneys. The [place] kidneys were partially obscured by suboptimal penetration. The right lower quadrant renal allograft measures 9.3 x 4.7 x 5.8 cm. There is mild allograft collecting system dilatation. Inferior to the allograft, there is a mildly complex fluid collection which measures 4.5 x 2.6 x 3.9 cm. Renal transplant artery and vein are patent. Peak systolic velocity within the right external iliac artery was 113 cm/s. Peak systolic velocity within the transplant artery was 315 cm/s. Brisk systolic upstrokes within the segmental vessels were noted. Resistive indices within the allograft range from 0.61-0.76. IMPRESSION: 1. Mild right lower quadrant renal allograft collecting system dilatation. 4.5 x 2.6 x 3.9 cm fluid collection inferior to the allograft. This favors a postoperative fluid collection and can be assessed on follow-up exams to ensure resolution. 2. Patent allograft vessels. Mildly elevated velocities within the renal transplant artery however segmental waveforms and resistive indices are within normal limits. The elevated velocities may be due to edema at the anastomosis given recent transplant. A significant renal artery stenosis is considered less likely however short-term sonographic follow-up is recommended. PG Care Time/CCT Total # of Minutes Spent Total Time Spent with Patient: Total time spent is greater than 50% in coordination of care (as documented) at patient's floor/unit and/or counseling patient: Coding Level of Care Code 98256 SUB INP/OBS CARE 3/50MIN Diagnoses Hyperkalemia E87.5 Renal transplant, status post Z94.0 Liver transplant recipient Z94.4 MGUS (monoclonal gammopathy of unknown significance) D47.2 Thrombotic microangiopathy M31.10
--- NOTE | 2023-12-13 10:39 | Discharge Summary ---
Date of Service December 13, 2023 Admission HPI Per Admitting Provider Patient is a 63-year-old female with past medical history of liver and renal transplant. Patient had a liver transplant secondary to Lott done in October 2018. Tacrolimus as prescribed. Patient then had a renal transplant secondary to end-stage renal disease in November 2023. Patient has been on eculizumab weekly. Patient also has a past medical history of anemia of chronic disease, pancytopenia and follows with hematology/oncology. Patient is also a type I diabetic with diabetic neuropathy, GERD, vitamin D deficiency, urinary incontinence, and status post laminectomy on 04/22/2021. Patient presented to the ED due to abnormal labs of hyperkalemia. Patient states that she feels fine. Does state though that today she felt little bit sluggish, tired, nauseous, and fatigued. Though overall did not feel any significantly different today. In talking with the patient, she states that at her last renal appointment they took her off her water pills and increased her tacrolimus though unsure to what amount. They also had her taking Bactrim every day due to concerns about infection of her surgical site. She denies any fevers, chills, vomiting, tenderness, rash, or abdominal pain. Principal Diagnosis Hyperkalemia, recent renal transplant Discharge Exam see prog note today Discharge Data Allergies Allergy/AdvReac Type Severity Reaction Status Date / Time Iodinated Contrast Media Allergy Intermediate Sneezing Verified 11/02/23 11:56 and breaks out into a rash Penicillins Allergy Intermediate Hives Verified 11/02/23 11:56 metformin AdvReac Unknown Gastrointestinal Verified 11/02/23 11:56 Upset doxycycline AdvReac Vomiting Verified 12/11/23 23:28 Consultations 12/11/23 22:40 ED Decision to Admit Stat 12/12/23 05:02 Consult Nephrology Routine 12/13/23 09:24 Burn CD for patient Stat Ordered Studies 12/12/23 10:49 US Kidney transplant [US renal transplant w dop] Routine Renal Ultrasound 12/12/23 10:49 RENAL TRANSPLANT DOPPLER ULTRASOUND CLINICAL HISTORY: Acute kidney injury. COMPARISON STUDY: CT of the abdomen and pelvis May 24, 2023. TECHNIQUE: [place]ques scale sonography of the [place] kidneys was performed. Grayscale, color and duplex Doppler sonography of the right lower quadrant renal allograft was performed. FINDINGS: There is no hydronephrosis within the [place] kidneys. The [place] kidneys were partially obscured by suboptimal penetration. The right lower quadrant renal allograft measures 9.3 x 4.7 x 5.8 cm. There is mild allograft collecting system dilatation. Inferior to the allograft, there is a mildly complex fluid collection which measures 4.5 x 2.6 x 3.9 cm. Renal transplant artery and vein are patent. Peak systolic velocity within the right external iliac artery was 113 cm/s. Peak systolic velocity within the transplant artery was 315 cm/s. Brisk systolic upstrokes within the segmental vessels were noted. Resistive indices within the allograft range from 0.61-0.76. IMPRESSION: 1. Mild right lower quadrant renal allograft collecting system dilatation. 4.5 x 2.6 x 3.9 cm fluid collection inferior to the allograft. This favors a postoperative fluid collection and can be assessed on follow-up exams to ensure resolution. 2. Patent allograft vessels. Mildly elevated velocities within the renal transplant artery however segmental waveforms and resistive indices are within normal limits. The elevated velocities may be due to edema at the anastomosis given recent transplant. A significant renal artery stenosis is considered less likely however short-term sonographic follow-up is recommended. ACT 112: Negative or not required by law. Electronically signed by: Omar Orlando M.D. 12/12/2023 12:25 PM 12/13/23 12/13/23 12/12/23 Range/Units 07:22 07:10 Unknown WBC 2.41 L (4.8-10.8) K/ul RBC 2.46 L (4.20-5.40) M/uL Hgb 7.8 L (12.0-16.0) g/dl Hct 23.8 L (37.0-47.0) % MCV 96.7 (80.0-100.0) fL MCH 31.7 (25.0-34.0) pg MCHC 32.8 (32.0-36.0) g/dL RDW Std Deviation 58.2 H (36.4-46.3) fL RDW Coeff of Paty 16.9 H (11.5-14.5) % Plt Count 107 L (130-400) K/uL MPV 10.8 (9.4-12.4) fL Sodium 136 (136-145) mmol/L Potassium 5.4 H (3.5-5.1) mmol/L Chloride 104 (98-107) mmol/L Carbon Dioxide 28 (21-32) mmol/L Anion Gap 4 (3-11) BUN 21 (6-23) mg/dl Creatinine 2.38 H D (0.6-1.2) mg/dl Est Cr Clr Drug Dosing 20.4 ml/min Est GFR ( Amer) 24.7 ml/min Est GFR (Non-Af Amer) 21.3 ml/min BUN/Creatinine Ratio 8.8 L (10-20) Glucose 178 H (70-99(Fasting)) mg/dl POC Glucose 172 H (70-99) mg/dl Calcium 8.3 L (8.6-10.3) mg/dl Total Bilirubin 0.9 (0.2-1.0) mg/dl AST 11 L (13-39) U/L ALT 8 (7-52) U/L Alkaline Phosphatase 94 (34-104) U/L Total Protein 5.4 L (6.0-8.3) gm/dl Albumin 3.1 L (3.4-5.0) gm/dl Globulin 2.3 L (2.5-4.0) gm/dl Albumin/Globulin Ratio 1.3 (0.9-2) Urine Color Yellow Urine Appearance Clear (Clear) Urine pH 6.5 (4.5-7.5) Ur Specific [place] 1.014 (1.000-1.030) Urine Protein Trace H (Negative) Urine Glucose (UA) Negative (Negative) Urine Ketones Negative (Negative) Urine Blood Negative (Negative) Urine Nitrite Negative (Negative) Urine Bilirubin Negative (Negative) Urine Urobilinogen Negative (Negative) Ur Leukocyte Esterase Trace H (Negative) Urine WBC (Auto) 1-5 (0-5) /hpf Urine RBC (Auto) 5-10 H (0-4) /hpf U Hyaline Cast (Auto) 1-5 (0-5) /lpf U Epithel Cells (Auto) >30 H (0-5) /lpf Urine Bacteria (Auto) Negative (Negative) Ur Renal Epithelial Cell 0-5 (0-5) /lpf Hep Bs Antigen Pending Hep Bs Ag Confirmation Pending Hep Bs Antibody, Quant Pending 12/12/23 12/12/23 12/12/23 Range/Units 20:10 17:31 13:59 WBC (4.8-10.8) K/ul RBC (4.20-5.40) M/uL Hgb (12.0-16.0) g/dl Hct (37.0-47.0) % MCV (80.0-100.0) fL MCH (25.0-34.0) pg MCHC (32.0-36.0) g/dL RDW Std Deviation (36.4-46.3) fL RDW Coeff of Paty (11.5-14.5) % Plt Count (130-400) K/uL MPV (9.4-12.4) fL Sodium (136-145) mmol/L Potassium (3.5-5.1) mmol/L Chloride (98-107) mmol/L Carbon Dioxide (21-32) mmol/L Anion Gap (3-11) BUN (6-23) mg/dl Creatinine (0.6-1.2) mg/dl Est Cr Clr Drug Dosing ml/min Est GFR ( Amer) ml/min Est GFR (Non-Af Amer) ml/min BUN/Creatinine Ratio (10-20) Glucose (70-99(Fasting)) mg/dl POC Glucose 134 H 109 H 241 H (70-99) mg/dl Calcium (8.6-10.3) mg/dl Total Bilirubin (0.2-1.0) mg/dl AST (13-39) U/L ALT (7-52) U/L Alkaline Phosphatase (34-104) U/L Total Protein (6.0-8.3) gm/dl Albumin (3.4-5.0) gm/dl Globulin (2.5-4.0) gm/dl Albumin/Globulin Ratio (0.9-2) Urine Color Urine Appearance (Clear) Urine pH (4.5-7.5) Ur Specific [place] (1.000-1.030) Urine Protein (Negative) Urine Glucose (UA) (Negative) Urine Ketones (Negative) Urine Blood (Negative) Urine Nitrite (Negative) Urine Bilirubin (Negative) Urine Urobilinogen (Negative) Ur Leukocyte Esterase (Negative) Urine WBC (Auto) (0-5) /hpf Urine RBC (Auto) (0-4) /hpf U Hyaline Cast (Auto) (0-5) /lpf U Epithel Cells (Auto) (0-5) /lpf Urine Bacteria (Auto) (Negative) Ur Renal Epithelial Cell (0-5) /lpf Hep Bs Antigen Hep Bs Ag Confirmation Hep Bs Antibody, Quant 12/12/23 12/12/23 12/12/23 Range/Units 13:14 12:25 12:13 WBC (4.8-10.8) K/ul RBC (4.20-5.40) M/uL Hgb (12.0-16.0) g/dl Hct (37.0-47.0) % MCV (80.0-100.0) fL MCH (25.0-34.0) pg MCHC (32.0-36.0) g/dL RDW Std Deviation (36.4-46.3) fL RDW Coeff of Paty (11.5-14.5) % Plt Count (130-400) K/uL MPV (9.4-12.4) fL Sodium 135 L (136-145) mmol/L Potassium 5.8 H (3.5-5.1) mmol/L Chloride 107 (98-107) mmol/L Carbon Dioxide 20 L (21-32) mmol/L Anion Gap 8 (3-11) BUN 37 H (6-23) mg/dl Creatinine 2.90 H (0.6-1.2) mg/dl Est Cr Clr Drug Dosing 16.8 ml/min Est GFR ( Amer) 19.4 ml/min Est GFR (Non-Af Amer) 16.8 ml/min BUN/Creatinine Ratio 12.8 (10-20) Glucose 169 H (70-99(Fasting)) mg/dl POC Glucose 240 H 177 H (70-99) mg/dl Calcium 9.5 (8.6-10.3) mg/dl Total Bilirubin (0.2-1.0) mg/dl AST (13-39) U/L ALT (7-52) U/L Alkaline Phosphatase (34-104) U/L Total Protein (6.0-8.3) gm/dl Albumin (3.4-5.0) gm/dl Globulin (2.5-4.0) gm/dl Albumin/Globulin Ratio (0.9-2) Urine Color Urine Appearance (Clear) Urine pH (4.5-7.5) Ur Specific [place] (1.000-1.030) Urine Protein (Negative) Urine Glucose (UA) (Negative) Urine Ketones (Negative) Urine Blood (Negative) Urine Nitrite (Negative) Urine Bilirubin (Negative) Urine Urobilinogen (Negative) Ur Leukocyte Esterase (Negative) Urine WBC (Auto) (0-5) /hpf Urine RBC (Auto) (0-4) /hpf U Hyaline Cast (Auto) (0-5) /lpf U Epithel Cells (Auto) (0-5) /lpf Urine Bacteria (Auto) (Negative) Ur Renal Epithelial Cell (0-5) /lpf Hep Bs Antigen Hep Bs Ag Confirmation Hep Bs Antibody, Quant 12/12/23 Range/Units 11:03 WBC (4.8-10.8) K/ul RBC (4.20-5.40) M/uL Hgb (12.0-16.0) g/dl Hct (37.0-47.0) % MCV (80.0-100.0) fL MCH (25.0-34.0) pg MCHC (32.0-36.0) g/dL RDW Std Deviation (36.4-46.3) fL RDW Coeff of Paty (11.5-14.5) % Plt Count (130-400) K/uL MPV (9.4-12.4) fL Sodium (136-145) mmol/L Potassium (3.5-5.1) mmol/L Chloride (98-107) mmol/L Carbon Dioxide (21-32) mmol/L Anion Gap (3-11) BUN (6-23) mg/dl Creatinine (0.6-1.2) mg/dl Est Cr Clr Drug Dosing ml/min Est GFR ( Amer) ml/min Est GFR (Non-Af Amer) ml/min BUN/Creatinine Ratio (10-20) Glucose (70-99(Fasting)) mg/dl POC Glucose 285 H (70-99) mg/dl Calcium (8.6-10.3) mg/dl Total Bilirubin (0.2-1.0) mg/dl AST (13-39) U/L ALT (7-52) U/L Alkaline Phosphatase (34-104) U/L Total Protein (6.0-8.3) gm/dl Albumin (3.4-5.0) gm/dl Globulin (2.5-4.0) gm/dl Albumin/Globulin Ratio (0.9-2) Urine Color Urine Appearance (Clear) Urine pH (4.5-7.5) Ur Specific [place] (1.000-1.030) Urine Protein (Negative) Urine Glucose (UA) (Negative) Urine Ketones (Negative) Urine Blood (Negative) Urine Nitrite (Negative) Urine Bilirubin (Negative) Urine Urobilinogen (Negative) Ur Leukocyte Esterase (Negative) Urine WBC (Auto) (0-5) /hpf Urine RBC (Auto) (0-4) /hpf U Hyaline Cast (Auto) (0-5) /lpf U Epithel Cells (Auto) (0-5) /lpf Urine Bacteria (Auto) (Negative) Ur Renal Epithelial Cell (0-5) /lpf Hep Bs Antigen Hep Bs Ag Confirmation Hep Bs Antibody, Quant 12/13/23 07:22 12/13/23 07:22 Hospital Course (1) Hyperkalemia: Hyperkalemia and MADELEINE (previously Cr 2, was 3 on 11/24), 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 Bactrim was increased over concern of surgical site infection - increased redness inferior part of wound, appears resolved. -three rounds of D50/IV insulin and serial doses of lokelma 12/11-12/12 and finally had hemodialysis afternoon of 12/12. Hydrated with sodium bicarbonate IV, metabolic acidosis improved. -consulted health promotion educator who contacted transplant program at [facility] 12/12 -continue tacrolimus and MMF, tac level 12/11 was 7.0 -bactrim stopped for hyperkalemia, will need alternate PJP prophylaxis -UA without significant pyuria and culture is contaminated/yennifer -placed long for accurate UOP - UOP much improved overnight was 650 on 12/13 and 200 so far this am -renal US 12/12 - postoperative fluid collection, patent allograft vessels, elevated velocities maybe related to edema at anastomosis because of recent transplant -continue sodium bicarbonate drip, metabolic acidosis improved bicarb now 20 -UOP improved today -K improved but remains elevated at 5.4, Cr 2.38 (but had HD run yesterday) -Hct drop 12/12, no bleeding, thrombocytopenia within range of old/prior labs, c/w dilutional Discussed with health promotion educator Dr. Carroll and coordinator Shira Moe at [facility] today -has multiple appt tomorrow in [place] (transplant clinic, urology?, heme/onc) -reasonable for discharge today and will get labs tomorrow in transplant clinic -low K diet, gave Rx for daily patiromer, gave dose this am -hold bactrim pending discussion with her transplant physician - consider replacing with dapsone, consider adding fludrocortisone -fluid collection seen on ultrasound likely postop changes - requested CD be made with images of US she will hand carry to appt (2) Renal transplant, status post: Thrombotic microangiopathy- Secondary to tacrolimus/renal transplant Treated with Eculizumab Patient will be continued on her usual transplant medications of tacrolimus and mycophenolate -bactrim held (3) GERD (gastroesophageal reflux disease): -Continue home medication. (4) Liver cirrhosis secondary to LOTT (nonalcoholic steatohepatitis): -Status post liver transplant done on October 2018. Hx PBC and LOTT -Continue home tacrolimus -CMP normal 12/12, INR normal on admission (5) Hypertension: -Continue home medications: metoprolol (6) Pancytopenia: -Pancytopenia that has been worked up previously with hematology oncology with bone marrow biopsies. -No significant change seen on labs, anticipated dilutional drop in Hct and platelets (7) Hx of compression fracture of spine: -Status post laminectomy back on 04/22/2021. (8) Diabetes 1.5, managed as type 1: - home regimen - lispro Total Time Total Time Spent Total Time Spent (In Minutes): I personally spent: 45 minutes today on clinical care activities including: reviewing chart notes and vital signs reviewing labs reviewing studies discussion with health promotion educator, document control coordinator, bedside RN examining and counseling the patient writing orders, discharge instructions documentation Discharge Plan Discharge Items Patient Disposition: Home - Self-Care Reason For Visit: HYPERKALEMIA Discharge Diagnosis: Hyperkalemia, recent renal transplant Activity: Resume your previous activity Non-emergency contact: Primary Care Provider and Surgeon Call non-emergency contact if: you have any medication questions, your symptoms worsen and you have a fever Follow-up/Referrals: She Davis DO [Primary Care Provider] - Diet: Low Potassium (2gm) Addtl Attending Provider Instructions: You were treated for hyperkalemia (high potassium) with medications and a run of dialysis Follow up as scheduled with transplant surgery tomorrow at [facility], and your other appointments tomorrow I spoke with the coordinator Shira and they will check your labs Take the CD of your imaging with you to your appointment I asked the hospital to fax summaries to the transplant clinic. You can also sign up for the patient portal online so you can view notes, labs, and studies. Stay on a low potassium diet I gave you a prescription for lokelma to take daily, this medication lowers your potassium STOP taking bactrim (trimethoprim) for now - ask your transplant physician if you should stay on this medication or if it should be replaced with something else, because it can contribute to hyperkalemia It was a pleasure taking care of you in the hospital Kim Lindsey MD Pending Studies at Discharge: No Stand-Alone Forms: My [facility] Choose Digital, Smoking Cessation Medications and DC Order Prescriptions: New Lokelma 10 gram Powder In Packet 10 g PO DAILY@1100 Qty: 11 0RF Continued solifenacin 5 mg tablet 5 mg PO QAM Qty: 90 3RF ondansetron HCl 4 mg tablet 4 mg PO Q8H PRN (Reason: n/v) (DME) Dexcom G7 Sensor Device See Rx Instructions .Route Rx Instructions: As directed metoprolol succinate 25 mg tablet extended release 24 hr 25 mg PO QAM tacrolimus 1 mg capsule See Rx Instructions .ROUTE .COMPLEX Rx Instructions: take 3 mg orally in the morning and 2 mg orally at night mycophenolate mofetil 250 mg capsule 250 mg PO AMHS pantoprazole 40 mg tablet,delayed release (DR/EC) 40 mg PO QAM ergocalciferol (vitamin D2) 1,250 mcg (50,000 unit) Capsule 1,250 mcg PO WK Rx Instructions: mondays valganciclovir 450 mg tablet 450 mg PO 2XWK Rx Instructions: take 450 mg orally in the morning of MONDAYS & THURSDAYS magnesium oxide 400 mg (241.3 mg magnesium) tablet 400 mg PO BIDM insulin lispro [Humalog Pen] 100 unit/mL Insulin Pen 1 sliding scale dose SUBCUT USEASDIRECTD eculizumab 300 mg/30 mL Solution 300 mg IV .EVERY OTHER WEEK Rx Instructions: due dec Held sulfamethoxazole-trimethoprim 400-80 mg tablet 1 tab PO QAM Hold Instructions: Resume on 01/03/24. hold this medication - discuss it with your transplant team Discharge Orders: Discharge Order (Routine); Ordered 12/13/23 Ordered By: Kim Lindsey Admission Data Admit Date/Time: 12/13/23 07:06 Attending Provider: Kim Lindsey Admit Provider: Adrián Nassar Primary Care Provider: She Davis Other Providers: Phillip Tobin; Raoul Carroll Coding Level of Care Code 10504 INP/OBS DISCH >30 MIN Diagnoses Hyperkalemia E87.5 Renal transplant, status post Z94.0 Gastroesophageal reflux disease, esophagitis presence not specified K21.9 Esophagitis presence: esophagitis presence not specified Liver cirrhosis secondary to LOTT (nonalcoholic steatohepatitis) K75.81; K74.60 Hypertension I10 Pancytopenia D61.818 Hx of compression fracture of spine Z87.81 Diabetes 1.5, managed as type 1 E13.9
[2023-12-14 09:12] LABS: HBSAG NON-REACTIVE (NON-REACTIVE); Hepatitis B Surface Ab, Quant <5 mIU/mL (> OR = 10)
== END 2023-12-13 12:39 | disposition home or self-care (01) ==
LOC: ED 20:55 → EDINP 20:55 → SUATTDRO 23:22 → 2S 12-12 01:45

== ENCOUNTER 2023-12-22 16:23 | Inpatient (IN) ==
--- NOTE | 2023-12-22 16:44 | ED Triage Note ---
Date of Service December 22, 2023 Provider in Triage Author: Charline New History of Present Illness This patient was briefly evaluated while in triage. An abbreviated physical exam was performed. This patient is a 63-year-old Female who presents to the ED for evaluation of hyperkalemia (5.9) and low blood pressure (97/40 pt. visitor believes). Had negative Covid-19 test today. Denies recent fever. Pt. feels short of breath and dizzy. Decreased energy and has had vomiting and diarrhea. Has been coughing. Reports kidney transplant in late November due to complications from Tacrolimus from liver transplant 5 years ago. Denies complications with surgery. Physical Exam VITALS: Vitals are noted on the nurse's note and reviewed by myself. GENERAL: This is a 63 year old female, in no acute distress, nondiaphoretic, well-developed well-nourished. SKIN: No obvious rashes, edema, erythema HEAD: Normocephalic atraumatic. EYES: Conjunctivae without injection, sclerae without icterus. NECK: No JVD. LUNGS: No retractions or accessory muscle use. MUSCULOSKELETAL: Normal gait. NEURO: Patient was alert and oriented to person place and time. No focal neurological deficits. Initial orders for labs and / or imaging were placed and patient was placed in the waiting area until a bed is available. Please see further documentation for the full ED course.
[2023-12-22 18:17] LABS: Adenovirus PCR Not Detected (NotDetected); Bordetella parapertussis PCR Not Detected (NotDetected); Bordetella pertussis PCR Not Detected (NotDetected); Chlamydia pneumoniae PCR Not Detected (NotDetected); Coronavirus 229E PCR Not Detected (NotDetected); Coronavirus CoV-2 (COVID19)PCR Not Detected (NotDetected); Coronavirus HKU1 PCR Not Detected (NotDetected); Coronavirus NL63 PCR Not Detected (NotDetected); Coronavirus OC43PCR Not Detected (NotDetected); Human Metapneumovirus PCR Not Detected (NotDetected); Influenza A PCR Not Detected (NotDetected); Influenza B PCR Not Detected (NotDetected); Mycoplasma pneumoniae PCR Not Detected (NotDetected); Parainfluenza Virus 1 PCR Not Detected (NotDetected); Parainfluenza Virus 2 PCR Not Detected (NotDetected); Parainfluenza Virus 3 PCR Not Detected (NotDetected); Parainfluenza Virus 4 PCR Not Detected (NotDetected); Respiratory Syncytial VirusPCR DETECTED (NotDetected); Rhinovirus/Enterovirus PCR Not Detected (NotDetected)
--- NOTE | 2023-12-22 18:37 | Emergency Department Note ---
Impression & Plan Acute hyperkalemia, MADELEINE (acute kidney injury), Renal transplant recipient, Anemia, Leukopenia, Respiratory syncytial virus (RSV) ED Provider Note NAME: JULIOCESAR LU AGE: 63 SEX: F : 1960 ARRIVES VIA: Walk-In INFORMANT: Patient ED PROVIDER(S): Rigo Mercer DO CHIEF COMPLAINT: elevated K and hypotension HPI: Patient is a 63-year-old female with a past medical history of liver transplant, and a recent renal transplant in November, GERD, dyslipidemia, diabetes, who presents the ER referred in by PCP for elevated potassium and hypotension. Patient currently denies any headache or change in vision. No chest pain or shortness of breath. But does have some nausea and vomiting which started earlier today. No dysuria, urgency, or frequency. No other exacerbating remitting factors. ADDITIONAL HISTORY OBTAINED: Per HPI Chronic Medical/Social Conditions Affecting Care: Per HPI PAST MEDICAL HISTORY:See Below PAST SURGICAL HISTORY:See Below FAMILY HISTORY:See Below SOCIAL HISTORY:See Below HOME MEDICATIONS:See Below ALLERGIES:See Below VITALS:See Below PHYSICAL EXAMINATION: GENERAL: Sitting up in bed, alert, chronically ill-appearing, disheveled EYE EXAM: normal conjunctiva. PERRL and EOM's grossly intact. OROPHARYNX:mucous membranes are moist NECK: supple, no nuchal rigidity, no adenopathy, non-tender LUNGS: Clear to auscultation. Normal chest wall mechanics HEART: no murmurs, S1 normal and S2 normal ABDOMEN: abdomen soft, non-tender, normo-active bowel sounds, no masses, no rebound or guarding. BACK: Back is symmetrical on inspection and there is no deformity, no midline tenderness, no CVA tenderness. SKIN: no rashes and no bruising UPPER EXTREMITIES: upper extremities are grossly normal. LOWER EXTREMITIES: No pitting edema. NEURO EXAM: Normal sensorium, cranial nerves II-XII grossly intact, normal speech, no gross weakness of arms, no gross weakness of legs. MEDICAL DECISION MAKING: Patient is a 63-year-old female who presents ER with a recent kidney transplant for the above-stated complaint. IV was established blood work was obtained. Labs show leukopenia and anemia with a thrombocytopenia. INR unremarkable. Potassium elevated at 6.1. This was treated with IV calcium, bicarb, insulin dextrose. She was slightly acidotic. Creatinine 2.3 which is slightly worse than her last creatinine but actually improved from the previous. LFTs bilirubin were unremarkable. Lipase was normal. Viral panel was positive for RSV which could be causing the vomiting which is causing the dehydration. Patient was given IV fluids as well. Monitor closely. Discussed case with the hospitalist admitted for further workup. Consults/Care Managements Discussions: Per MDM Triage Nursing notes reviewed. Limited review of prior medical records performed Vital Signs: reviewed and remarkable for no significant abnormalities Differential diagnosis: Infection, dehydration, metabolic abnormality, hypo/hyperglycemia, electrolyte disturbance, anemia, hypoxia, cardiac sources, intracerebral event, toxicologic, neurologic, as well as other pathologies. ER treatment provided: See below Diagnostics interpreted by me include EKG and cardiac monitoring as listed below: -Cardiac Monitoring: An order was placed for continuous cardiac monitoring. The monitor shows a rate of 70 with sinus rhythm. -ECG: Sinus rhythm rate of 63 Left axis No PVCs QTc 499 -Laboratory studies:Interpreted by me as stated above in MDM and shown below. Imaging studies: Xrays: As interpreted by me: 2 views of the chest shows no focal infiltrate CTs show: none Procedures:none Critical Care: I have personally spent 31 minutes of critical care time in the direct management of this patient. This includes bedside care, interpretation of diagnostic studies, and testing, discussion with consultants, patient, and family members, and other required patient management activities. This 31 minutes is in excess of all separately billable procedures. Past Med/Surg History Medical History Varices, esophageal DM type 2 (diabetes mellitus, type 2) Plaque psoriasis Hypertension Lumbar pain with radiation down both legs Bilateral foot-drop MGUS (monoclonal gammopathy of unknown significance) Osteopenia Peripheral neuropathy Vitamin D deficiency COPD (chronic obstructive pulmonary disease) Primary biliary cirrhosis Osteoarthritis GERD (gastroesophageal reflux disease) Esophageal varices Degenerative disc disease, lumbar Anemia of chronic disease 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) Surgical History Renal transplant, status post S/P arteriovenous (AV) graft placement History of lumbar laminectomy for spinal cord decompression (04/22/21) Liver transplant recipient History of liver transplant (10/13/18) History of total abdominal hysterectomy and bilateral salpingo-oophorectomy History of section History of colonoscopy History of tooth extraction Nasal polyp History of tonsillectomy Family History Unknown Adopted Social History Smoking Status: Never smoker Second Hand Exposure: No; Do You Dip or Chew Tobacco: No; Tobacco Cessation Education Requested by Patient: No Hx Alcohol Use: No Hx Substance Use: No Preferred Language: Lithuanian Communication Ability: Effective Visual Impairment: No Limitations Hearing Ability: Hard of Hearing Inorganic Chemist Required: No Beliefs That Will Affect Care: None marital status: Current Living Situation: Spouse Current Living Situation Comment: Lives at home with , son, and daughter current occupational status: employed How many Children do You have: 3 Other Information That Helps Us Care for You: No Feels Safe at Home: Yes Safety Concerns: Feels Safe At This Time Childhood Exposure to Second-Hand Smoke: No Diet: low carbohydrate caffeine: Yes during the past year weight has: remained stable Dental Care, Regularly: No Physical Activity Frequency: Daily Seatbelt Use: always Sunscreen Use: No Assistive Devices: Brace/Splint/Immobilizer and Walker Assistive Devices Comment: b/l leg splints Allergies Allergies Allergy/AdvReac Type Severity Reaction Status Date / Time Iodinated Contrast Media Allergy Intermediate Sneezing Verified 12/22/23 19:11 and breaks out into a rash Penicillins Allergy Intermediate Hives Verified 12/22/23 19:11 doxycycline AdvReac Intermediate Vomiting Verified 12/22/23 19:11 metformin AdvReac Intermediate Gastrointestinal Verified 12/22/23 19:11 Upset Home Meds Home Medications Medication Instructions Recorded Confirmed metoprolol succinate 25 mg 25 mg PO QAM 06/11/23 12/22/23 tablet,extended release 24 hr blood-glucose sensor (Dexcom G7 08/17/23 12/22/23 Sensor device) eculizumab 300 mg/30 mL 300 mg IV .EVERY OTHER WEEK 12/11/23 12/22/23 intravenous solution ergocalciferol (vitamin D2) 1,250 1,250 mcg PO WK 12/11/23 12/22/23 mcg (50,000 unit) capsule insulin lispro 100 unit/mL 1 sliding scale dose subcut 12/11/23 12/22/23 subcutaneous pen USEASDIRECTD magnesium oxide 400 mg (241.3 mg 400 mg PO BIDM 12/11/23 12/22/23 magnesium) tablet mycophenolate mofetil 250 mg 250 mg PO AMHS 12/11/23 12/22/23 capsule pantoprazole 40 mg tablet,delayed 40 mg PO QAM 12/11/23 12/22/23 release sulfamethoxazole 400 1 tab PO 3XWK 12/11/23 12/22/23 mg-trimethoprim 80 mg tablet tacrolimus 1 mg capsule, See Rx Instructions .Route .COMPLEX 12/11/23 12/22/23 immediate-release valganciclovir 450 mg tablet 450 mg PO 2XWK 12/11/23 12/22/23 Previous Rx's Medication Instructions Recorded solifenacin 5 mg tablet 5 mg PO QAM #90 tabs 10/18/23 sodium zirconium cyclosilicate 10 10 g PO DAILY@1100 hyperkalemia 12/13/23 gram oral powder packet (Lokelma) #11 ea Results & Data (ED) Vital Signs Vital Signs - 24 hr 12/22/23 16:42 12/22/23 18:36 12/22/23 19:00 Temperature 36.5 C Temperature Source Temporal Artery Scan Pulse Rate 66 64 Pulse Rate [Apical] 62 Pulse Rhythm Pulse Rhythm [Apical] Regular Pulse Strength [Apical] Normal Respiratory Rate 21 12 Respiratory Effort / Characteristics Non-Labored Spontaneous Respiratory Depth Normal Respiratory Pattern Regular Blood Pressure 98/59 L Blood Pressure [Right Arm] 103/67 Blood Pressure Mean 72 Blood Pressure Mean [Right Arm] 79 Blood Pressure Position [Right Arm] Lying Pulse Oximetry 97 96 Oxygen Delivery Method Room Air Room Air Sepsis Recent Fever Within 48 Hours No Sepsis New/Unexplained Change in Mental Status N/A Sepsis Action Taken by Nursing Physician Notified 12/22/23 19:07 Temperature Temperature Source Pulse Rate 63 Pulse Rate [Apical] Pulse Rhythm Regular Pulse Rhythm [Apical] Pulse Strength [Apical] Respiratory Rate 16 Respiratory Effort / Characteristics Respiratory Depth Respiratory Pattern Blood Pressure Blood Pressure [Right Arm] Blood Pressure Mean Blood Pressure Mean [Right Arm] Blood Pressure Position [Right Arm] Pulse Oximetry 99 Oxygen Delivery Method Room Air Sepsis Recent Fever Within 48 Hours Sepsis New/Unexplained Change in Mental Status Sepsis Action Taken by Nursing Laboratory Data 12/22/23 18:35 12/22/23 21:05 Lab Results 12/22/23 12/22/23 12/22/23 Range/Units 17:19 18:35 18:46 WBC 2.84 L (4.8-10.8) K/ul RBC 3.17 L (4.20-5.40) M/uL Hgb 10.2 L (12.0-16.0) g/dl POC Hgb 9.9 L (12.0-16.0) g/dl Hct 30.6 L (37.0-47.0) % POC Hct 29 L (37-47) % MCV 96.5 (80.0-100.0) fL MCH 32.2 (25.0-34.0) pg MCHC 33.3 (32.0-36.0) g/dL RDW Std Deviation 59.9 H (36.4-46.3) fL RDW Coeff of Paty 17.2 H (11.5-14.5) % Plt Count 124 L (130-400) K/uL MPV 10.0 (9.4-12.4) fL Immature Gran % (Auto) 0.4 % Neut % (Auto) 73.8 % Lymph % (Auto) 16.2 % [place] % (Auto) 7.4 % Eos % (Auto) 1.8 % Baso % (Auto) 0.4 % Neut # (Auto) 2.10 (1.40-6.50) K/uL Lymph # (Auto) 0.46 L (1.20-3.40) K/uL [place] # (Auto) 0.21 (0.11-0.59) K/uL Eos # (Auto) 0.05 (0.00-0.50) K/uL Baso # (Auto) 0.01 (0.00-0.20) K/uL Immature Gran # (Auto) 0.01 (0.01-0.20) K/uL PT 11.6 (9.0-12.0) Seconds INR 1.1 (0.9-1.1) APTT 26 (21-31) Seconds PTT Ratio 0.9 POC Sodium 137 (135-144) mmol/L Sodium 137 (136-145) mmol/L POC Potassium 6.1 H* (3.3-5.0) mmol/L Potassium 6.0 H (3.5-5.1) mmol/L POC Chloride 111 (101-112) mmol/L Chloride 110 H (98-107) mmol/L Carbon Dioxide 17 L (21-32) mmol/L POC Total CO2 17 L (24-31) mmol/L Anion Gap 10 (3-11) POC Anion Gap 16.0 (16-25) mmol/L POC BUN 32 H (7-18) mg/dl BUN 34 H (6-23) mg/dl Creatinine 2.21 H (0.6-1.2) mg/dl POC Creatinine 2.3 H (0.6-1.3) mg/dl Est Cr Clr Drug Dosing Not Reportable Est GFR ( Amer) 27.0 ml/min Est GFR (Non-Af Amer) 23.3 ml/min BUN/Creatinine Ratio 15.4 (10-20) Glucose 215 H (70-99(Fasting)) mg/dl POC Glucose (other) 218 H (70-99) mg/dl Calcium 9.6 (8.6-10.3) mg/dl POC Ioniz Calcium [place] 1.26 (1.12-1.32) mmol/l Magnesium 1.9 (1.7-2.4) mg/dl Total Bilirubin 1.3 H (0.2-1.0) mg/dl AST 15 (13-39) U/L ALT 10 (7-52) U/L Alkaline Phosphatase 110 H (34-104) U/L Troponin I High Sens 8.8 (0-14) pg/ml Total Protein 7.0 (6.0-8.3) gm/dl Albumin 3.9 (3.4-5.0) gm/dl Globulin 3.1 (2.5-4.0) gm/dl Albumin/Globulin Ratio 1.3 (0.9-2) Lipase 9 L (11-82) U/L Procalcitonin 0.11 (0-0.5) ng/ml Adenovirus (PCR) Not Detected (NotDetected) B. pertussis DNA (PCR) Not Detected (NotDetected) B.parapertussis DNA PCR Not Detected (NotDetected) C. pneumoniae DNA (PCR) Not Detected (NotDetected) Coronavirus OC43 (PCR) Not Detected (NotDetected) Coronavirus HKU1 (PCR) Not Detected (NotDetected) Coronavirus 229E (PCR) Not Detected (NotDetected) SARS-CoV-2 (PCR) Not Detected (NotDetected) Coronavirus NL63 (PCR) Not Detected (NotDetected) Monoscreen Negative (Negative) Human Metapneumovir PCR Not Detected (NotDetected) Influenza Type A (PCR) Not Detected (NotDetected) Influenza Type B (PCR) Not Detected (NotDetected) M. pneumoniae (PCR) Not Detected (NotDetected) Parainfluenza 1 (PCR) Not Detected (NotDetected) Parainfluenza 2 (PCR) Not Detected (NotDetected) Parainfluenza 3 (PCR) Not Detected (NotDetected) Parainfluenza 4 (PCR) Not Detected (NotDetected) RSV (PCR) DETECTED A (NotDetected) Entero/Rhino (PCR) Not Detected (NotDetected) Administered Medications Discontinued Medications Dextrose (Dextrose 50% 50 Ml Syringe) 25 ml IV NOW ONE Stop: 12/22/23 20:02 Last Admin: 12/22/23 20:12 Dose: 25 ml Documented By: TANYA Sodium Chloride (Nss) 500 mls @ 999 mls/hr IV .Q31M ONE Stop: 12/22/23 19:01 Last Infusion: 12/22/23 19:12 Dose: Infused Documented By: Admin: 12/22/23 18:41 Dose: 999 mls/hr Documented By: ACC Calcium Gluconate () 1,000 mg in 60 mls @ 240 mls/hr IV NOW STA Stop: 12/22/23 20:15 Last Infusion: 12/22/23 20:30 Dose: Infused Documented By: Admin: 12/22/23 20:15 Dose: 240 mls/hr Documented By: TANYA Insulin Human Regular (Novolin-R Insulin Per Unit Charge) 5 units IV NOW STA Stop: 12/22/23 20:02 Last Admin: 12/22/23 20:15 Dose: 5 units Documented By: TANYA Co-signed By: CAMILLA Ondansetron HCl (Ondansetron Inj 2 Mg/Ml 2 Ml Vial) 4 mg IV NOW STA Stop: 12/22/23 18:38 Last Admin: 12/22/23 18:46 Dose: 4 mg Documented By: ACC Ondansetron HCl (Ondansetron Inj 2 Mg/Ml 2 Ml Vial) Confirm Administered Dose 4 mg .ROUTE .STK-MED ONE Stop: 12/22/23 20:46 Last Admin: 12/22/23 20:55 Dose: Not Given Documented By: TANYA Ondansetron HCl (Ondansetron Inj 2 Mg/Ml 2 Ml Vial) 4 mg IV NOW STA Stop: 12/22/23 20:50 Last Admin: 12/22/23 21:07 Dose: 4 mg Documented By: TANYA Sodium Bicarbonate (Sodium Bicarb 8.4% Inj 50 Meq/50 Ml Syr) 50 meq IV NOW STA Stop: 12/22/23 20:02 Last Admin: 12/22/23 20:16 Dose: 50 meq Documented By: TANYA Discharge Plan Visit Data Chief Complaint: Hypotension Stated Complaint: LOW BP HIGH POTASSIM ED Provider: Rigo Mercer Discharge Problem: Acute hyperkalemia, MADELEINE (acute kidney injury), Renal transplant recipient, Anemia, Leukopenia, Respiratory syncytial virus (RSV) Patient Disposition: Admitted As Inpatient Discharge Instructions Interventions: ED Discharge Assessment Last Done: 12/22/23 21:14 Discharge Problem: Anemia Qualifiers: Anemia type: unspecified type Qualified Code(s): D64.9 - Anemia, unspecified Leukopenia Qualifiers: Leukopenia type: unspecified Qualified Code(s): D72.819 - Decreased white blood cell count, unspecified
[2023-12-22] MEDS: SODIUM CHLORIDE 0.9% 500 ML IV ONE (18:41)
[2023-12-22] MEDS: ONDANSETRON INJ 2 MG/ML 2 ML VIAL IV STA ×2 (18:46→21:07)
[2023-12-22 18:59] LABS: iSTAT Creatinine 2.3 mg/dl (0.6-1.3); iSTAT Hemoglobin 9.9 g/dl (12.0-16.0); iSTAT Ionized Calcium 1.26 mmol/l (1.12-1.32); iSTAT Potassium 6.1 mmol/L (3.3-5.0)
[2023-12-22 19:20] LABS: Basophils # (auto) 0.01 K/uL (0.00-0.20); Basophils % (auto) 0.4 %; Eosinophils # (auto) 0.05 K/uL (0.00-0.50); Eosinophils % (auto) 1.8 %; Hematocrit (blood only) 30.6 % (37.0-47.0); Hemoglobin 10.2 g/dl (12.0-16.0); Immature Granulocytes # (auto) 0.01 K/uL (0.01-0.20); Immature Granulocytes % (auto) 0.4 %; Lymphocytes # (auto) 0.46 K/uL (1.20-3.40); Lymphocytes % (auto) 16.2 %; Mean Corpuscular Hemoglobin 32.2 pg (25.0-34.0); Mean Corpuscular Hgb Conc 33.3 g/dL (32.0-36.0); Mean Corpuscular Volume 96.5 fL (80.0-100.0); Monocytes # (auto) 0.21 K/uL (0.11-0.59); Monocytes % (auto) 7.4 %; Neutrophils % (auto) 73.8 %; Platelet Count 124 K/uL (130-400); RDW Coefficient of Variation 17.2 % (11.5-14.5); RDW Standard Deviation 59.9 fL (36.4-46.3); Red Blood Count 3.17 M/uL (4.20-5.40); White Blood Count 2.84 K/ul (4.8-10.8)
[2023-12-22 19:28] LABS: Alanine Aminotransferase 10 U/L (7-52); Albumin Globulin Ratio 1.3 (0.9-2); Albumin Level 3.9 gm/dl (3.4-5.0); Alkaline Phosphatase 110 U/L (34-104); Anion Gap 10 (3-11); Aspartate Aminotransferase 15 U/L (13-39); BUN Creatinine Ratio 15.4 (10-20); Bilirubin,Total 1.3 mg/dl (0.2-1.0); Blood Urea Nitrogen 34 mg/dl (6-23); Calcium 9.6 mg/dl (8.6-10.3); Carbon Dioxide 17 mmol/L (21-32); Chloride 110 mmol/L (98-107); Est GFR (Non-African American) 23.3 ml/min; Globulin 3.1 gm/dl (2.5-4.0); Glucose 215 mg/dl (70-99(Fasting)); Lipase 9 U/L (11-82); Magnesium 1.9 mg/dl (1.7-2.4); Sodium 137 mmol/L (136-145)
[2023-12-22 19:32] LABS: Troponin I High Sensitivity 8.8 pg/ml (0-14)
[2023-12-22 19:38] LABS: INR 1.1 (0.9-1.1); Partial Thromboplastin Ratio 0.9; Partial Thromboplastin Time 26 Seconds (21-31); Prothrombin Time 11.6 Seconds (9.0-12.0)
--- NOTE | 2023-12-22 20:07 | History & Physical Report ---
Date of Service December 22, 2023 Assessment & Plan (1) Renal transplant, status post: (2) GERD (gastroesophageal reflux disease): (3) Diabetes 1.5, managed as type 1: (4) Liver transplant recipient: (5) Hypertension: Plan 63-year-old female with a past medical history of renal transplant in November, GERD, dyslipidemia, diabetes, who presents referred in by PCP for elevated potassium and hypotension. Hyperkalemia - Metabolic acidosis - Potassium at 6.4 - CO2: 17 - Received sodium bicarb once in ED -PRev admission on 12/11-12/13 for similar reasons. 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 - CBC am - Isolation: neutropenic precautions GERD Continue Pantoprazole HTN: Continue metoprolol Hx of compression fracture of spine: -Status post laminectomy back on 04/22/2021. Diabetes 1.5, managed as type 1: - Patient's home regimen held on admission - Continue BSG checks, sliding-scale insulin, hypoglycemic protocol Dispo: PCU DVT prophylaxis: SCDs for now (low platelets) Diet: DM, low potassium COde: Full code History of Present Illness Primary Care Provider: She Davis DO Patient is a 63-year-old female with past medical history of liver (2007) and renal transplant on November 2023 type I diabetic with diabetic neuropathy, GERD, vitamin D deficiency, urinary incontinence, and status post laminectomy on 04/22/2021. Currently on tacrolimus and eculizumab weekly. Patient was sent from her PCP due to generalized illness, cough, vomiting, diarrhea and hyperkalemia. Found in ED with K: 6.1. She refers that grandson was diagnosed with RSV last week. She has not been able to tolerate food today due to nausea and vomits. Had 2 episodes of diarrhea. Patient also has a past medical history of anemia of chronic disease, pancytopenia and follows with hematology/oncology. She takes Bactrim and valganciclovir Patient had an admission from 12/11-12/13 for hyperkalemia. Received 3 rounds of D50/IV insulin, serial doses of Lokelma and a round of Hemodialysis. Patient also has a past medical history of anemia of chronic disease, pancytopenia and follows with hematology/oncology. At arrival patient found with hyperlakemia of 6.1. Positive for RSV. Metabolic acidosis (CO 17). She received bicarb, insulin/ D5W and one bolus of NSS. Allergies Allergy/AdvReac Type Severity Reaction Status Date / Time Iodinated Contrast Media Allergy Intermediate Sneezing Verified 12/22/23 19:11 and breaks out into a rash Penicillins Allergy Intermediate Hives Verified 12/22/23 19:11 doxycycline AdvReac Intermediate Vomiting Verified 12/22/23 19:11 metformin AdvReac Intermediate Gastrointestinal Verified 12/22/23 19:11 Upset Home Medications Medication Instructions Recorded Confirmed Type metoprolol succinate 25 mg 25 mg PO QAM 06/11/23 12/22/23 History tablet,extended release 24 hr blood-glucose sensor (Dexcom G7 08/17/23 12/22/23 History Sensor device) solifenacin 5 mg tablet 5 mg PO QAM #90 tabs 10/18/23 12/22/23 Rx eculizumab 300 mg/30 mL 300 mg IV .EVERY OTHER WEEK 12/11/23 12/22/23 History intravenous solution ergocalciferol (vitamin D2) 1,250 1,250 mcg PO WK 12/11/23 12/22/23 History mcg (50,000 unit) capsule insulin lispro 100 unit/mL 1 sliding scale dose subcut 12/11/23 12/22/23 History subcutaneous pen USEASDIRECTD magnesium oxide 400 mg (241.3 mg 400 mg PO BIDM 12/11/23 12/22/23 History magnesium) tablet mycophenolate mofetil 250 mg 250 mg PO AMHS 12/11/23 12/22/23 History capsule pantoprazole 40 mg tablet,delayed 40 mg PO QAM 12/11/23 12/22/23 History release sulfamethoxazole 400 1 tab PO 3XWK 12/11/23 12/22/23 History mg-trimethoprim 80 mg tablet tacrolimus 1 mg capsule, See Rx Instructions .Route .COMPLEX 12/11/23 12/22/23 History immediate-release valganciclovir 450 mg tablet 450 mg PO 2XWK 12/11/23 12/22/23 History sodium zirconium cyclosilicate 10 10 g PO DAILY@1100 hyperkalemia 12/13/23 12/22/23 Rx gram oral powder packet (Lokelma) #11 ea Past Med/Surg History Medical History Varices, esophageal DM type 2 (diabetes mellitus, type 2) Plaque psoriasis Hypertension Lumbar pain with radiation down both legs Bilateral foot-drop MGUS (monoclonal gammopathy of unknown significance) Osteopenia Peripheral neuropathy Vitamin D deficiency COPD (chronic obstructive pulmonary disease) Primary biliary cirrhosis Osteoarthritis GERD (gastroesophageal reflux disease) Esophageal varices Degenerative disc disease, lumbar Anemia of chronic disease 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) Surgical History Renal transplant, status post S/P arteriovenous (AV) graft placement History of lumbar laminectomy for spinal cord decompression (04/22/21) Liver transplant recipient History of liver transplant (10/13/18) History of total abdominal hysterectomy and bilateral salpingo-oophorectomy History of section History of colonoscopy History of tooth extraction Nasal polyp History of tonsillectomy Family History Unknown Adopted Social History Smoking Status: Never smoker Second Hand Exposure: No; Do You Dip or Chew Tobacco: No; Tobacco Cessation Education Requested by Patient: No Hx Alcohol Use: No Hx Substance Use: No Preferred Language: Urdu Communication Ability: Effective Visual Impairment: No Limitations Hearing Ability: Hard of Hearing Healthcare Management Consultant Required: No Beliefs That Will Affect Care: None marital status: Current Living Situation: Spouse Current Living Situation Comment: Lives at home with , son, and daughter current occupational status: employed How many Children do You have: 3 Other Information That Helps Us Care for You: No Feels Safe at Home: Yes Safety Concerns: Feels Safe At This Time Childhood Exposure to Second-Hand Smoke: No Diet: low carbohydrate caffeine: Yes during the past year weight has: remained stable Dental Care, Regularly: No Physical Activity Frequency: Daily Seatbelt Use: always Sunscreen Use: No Assistive Devices: Brace/Splint/Immobilizer and Walker Assistive Devices Comment: b/l leg splints Review of Systems Review of Systems: as per HPI Physical Exam Constitutional: well developed and + ill appearing Eyes: PERRL, conjunctivae normal, anicteric sclerae Respiratory: + cough; no respiratory distress Ausc ultation: lungs clear to auscultation bilaterally Cardiovascular: RRR, no murmur, no edema Gastrointestinal (Abdomen): normal bowel sounds, soft, nontender, no hepatosplenomegaly Results & Data Results & Data Vital Signs (Past 12 Hours) Vital Signs Temp Pulse Pulse Resp BP BP Pulse Ox 12/22/23 19:07 63 16 99 12/22/23 19:00 62 12 103/67 96 12/22/23 18:36 64 12/22/23 16:42 36.5 C 66 21 98/59 L 97 O2 Del Method 12/22/23 19:07 Room Air 12/22/23 19:00 Room Air 12/22/23 18:36 12/22/23 16:42 Room Air Supervising Physician Co-Signing Physician Notes Attending addendum: I have physically seen this patient, have supervised the medical residents activities, and agree with the H&P unless as otherwise noted. Assessment and Plan: Recurrent hyperkalemia/renal transplant status- Recently admitted for similar process from 12/11-12/13/2023, that did require a one-time short HD treatment Potassium 6.0 on admission. Received calcium gluconate 1 g IV, 50 mL of D50 followed by 10 units of regular insulin IV and a dose of Lokelma, with follow-up potassium 5.4 Status post 500 cc NSS bolus from the ED NSS at 80 mL/h x 1 additional liter Repeat laboratories in a.m. Continue mycophenolate, tacrolimus, mag oxide Bicarbonate level stable at 17, hold on bicarb drip for now Bactrim will be resumed at discretion of nephrology, with history of concern regarding precipitating hyperkalemia Continue Lokelma 10 mg p.o. 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
[2023-12-22] MEDS: DEXTROSE 50% 50 ML SYRINGE IV ONE (20:12)
[2023-12-22] MEDS: CALCIUM GLUCONATE 1,000 MG/60 ML BAG IV STA (20:15)
[2023-12-22] MEDS: NovoLIN-R INSULIN PER UNIT CHARGE IV STA (20:15)
[2023-12-22] MEDS: SODIUM BICARB 8.4% INJ 50 MEQ/50 ML SYR IV STA (20:16)
[2023-12-22] MEDS: ONDANSETRON INJ 2 MG/ML 2 ML VIAL ONE (20:55)
[2023-12-22] MEDS ORDERED: POLYETHYLENE (MIRALAX) 17 GM PACK PO PRN (21:37)
[2023-12-22] MEDS ORDERED: GLUCAGON FOR INJ 1 MG VIAL SQ PRN (21:37)
[2023-12-22] MEDS ORDERED: GLUCOSE 10 TAB/TUBE PO PRN (21:37)
[2023-12-22] MEDS ORDERED: CARBOHYDRATES FOR HYPOGLYCEMIA PO PRN (21:37)
[2023-12-22] MEDS ORDERED: DEXTROSE 50% 50 ML SYRINGE IV PRN (21:37)
[2023-12-22] MEDS ORDERED: ONDANSETRON INJ 2 MG/ML 2 ML VIAL IV PRN (21:37)
[2023-12-22] MEDS ORDERED: ACETAMINOPHEN 325 MG TAB PO PRN (21:37)
[2023-12-22] MEDS ORDERED: GLUCOSE 40% GEL 15 GM TUBE PO PRN (21:37)
[2023-12-22 21:45] LABS: Anion Gap 7 (3-11); BUN Creatinine Ratio 15.9 (10-20); Blood Urea Nitrogen 33 mg/dl (6-23); Calcium 9.4 mg/dl (8.6-10.3); Carbon Dioxide 17 mmol/L (21-32); Chloride 114 mmol/L (98-107); Est GFR (African American) 29.2 ml/min; Est GFR (Non-African American) 25.2 ml/min; Glucose 186 mg/dl (70-99(Fasting)); Potassium 5.4 mmol/L (3.5-5.1); Sodium 138 mmol/L (136-145)
[2023-12-22] MEDS: INSULIN ASPART PER UNIT CHARGE SC SCH (22:37)
[2023-12-22] MEDS: MYCOPHENOLATE MOFETIL 250 MG CAP PO SCH (22:41)
[2023-12-22] MEDS: SODIUM CHLORIDE 0.9% 1,000 ML IV SCH (22:41)
[2023-12-22] MEDS: guaiFENesin 600 MG TABCR PO SCH (22:42)
[2023-12-22] MEDS: TACROLIMUS 1 MG CAP PO SCH (22:43)
--- NOTE | 2023-12-23 06:18 | Billing Data ---
Date of Service December 23, 2023 Coding Level of Care Code 83639 INT INP/OBS CARE
--- NOTE | 2023-12-23 06:38 | XRay Report ---
XR chest 2V PA/lateral HISTORY: 63 years-old Female cough acute cough COMPARISON: 05/24/2023 TECHNIQUE: PA and lateral views of the chest FINDINGS: Cardiomediastinal and hilar silhouettes are within normal limits. There is no pneumothorax, pleural e ffusion or airspace consolidation. The bones appear grossly intact. Degenerative changes of the shoul ders and spine. IMPRESSION: No acute process. ACT 112: Negative or not required by law. The above report was generated using voice recognition software. It may contain grammatical, syntax o r spelling errors. Electronically signed by: Timbo Sanchez M.D. 12/23/2023 6:37 AM
[2023-12-23 07:39] LABS: Appearance Urine Clear (Clear); Bacteria Urine Automated Negative (Negative); Bilirubin Urine Negative (Negative); Blood Urine Negative (Negative); Color Urine Dark Yellow; Epithelial Cell Urine Auto >30 /lpf (0-5); Glucose Urine UA Negative (Negative); Ketones Urine Trace (Negative); Leukocyte Esterase Urine Trace (Negative); Nitrite Urine Negative (Negative); Protein Urine Negative (Negative); RBC Urine Automated 0-4 /hpf (0-4); Specific Gravity Urine 1.017 (1.000-1.030); Urobilinogen Urine Negative (Negative); pH Urine 5.5 (4.5-7.5)
[2023-12-23] MEDS: METOPROLOL SUCC 25MG EXT REL TAB PO SCH (08:55)
[2023-12-23] MEDS: OXYBUTYNIN CHLORIDE XL 5 MG TABCR PO SCH (08:56)
[2023-12-23] MEDS: PANTOprazole 40 MG TAB PO SCH (08:57)
[2023-12-23] MEDS: TACROLIMUS 1 MG CAP PO SCH (08:57)
[2023-12-23 09:12] LABS: BUN Creatinine Ratio 15.7 (10-20); Calcium 8.7 mg/dl (8.6-10.3); Creatinine Clr Calc Pharmacy 20.9 ml/min; Est GFR (African American) 25.9 ml/min; Est GFR (Non-African American) 22.3 ml/min; Magnesium 1.7 mg/dl (1.7-2.4); Potassium 5.6 mmol/L (3.5-5.1)
[2023-12-23] MEDS: SODIUM BICARBONATE 650 MG TAB PO SCH (10:14)
[2023-12-23] MEDS: SODIUM ZIRCONIUM CYCLOSILICATE 10 GM PACKET PO SCH (10:15)
[2023-12-23] MEDS: FUROSEMIDE INJ 20 MG/2 ML VIAL IV ONE (10:42)
[2023-12-23] MEDS ORDERED: SODIUM ZIRCONIUM CYCLOSILICATE 10 GM PACKET PO SCH (11:00)
[2023-12-23] MEDS: MAGNESIUM OXIDE 400 MG TAB PO SCH ×2 (11:39→17:47)
--- NOTE | 2023-12-23 12:52 | Electrocardiogram Report ---
Test Reason : Blood Pressure : / mmHG Vent. Rate : 059 BPM Atrial Rate : 059 BPM P-R Int : 140 ms QRS Dur : 088 ms QT Int : 492 ms P-R-T Axes : 072 -31 036 degrees QTc Int : 487 ms Sinus bradycardia Left axis deviation Abnormal ECG When compared with ECG of 22-DEC-2023 17:10, (unconfirmed) Nonspecific T wave abnormality now evident in Anterior leads Confirmed by Johnny Obrien ([id number]) on 12/23/2023 12:52:10 PM Referred By: REFERRED SELF Confirmed By:Jose Obrien
--- NOTE | 2023-12-23 12:56 | Electrocardiogram Report ---
Test Reason : Blood Pressure : / mmHG Vent. Rate : 061 BPM Atrial Rate : 061 BPM P-R Int : 150 ms QRS Dur : 092 ms QT Int : 472 ms P-R-T Axes : 067 -49 012 degrees QTc Int : 475 ms Normal sinus rhythm Left anterior fascicular block Cannot rule out Inferior infarct Abnormal ECG When compared with ECG of 22-DEC-2023 21:43, (unconfirmed) No significant change was found Confirmed by Johnny Obrien ([id number]) on 12/23/2023 12:56:25 PM Referred By: REFERRED SELF Confirmed By:Jose Obrien
--- NOTE | 2023-12-23 13:06 | Electrocardiogram Report ---
Test Reason : Blood Pressure : / mmHG Vent. Rate : 063 BPM Atrial Rate : 063 BPM P-R Int : 144 ms QRS Dur : 086 ms QT Int : 488 ms P-R-T Axes : 075 -41 038 degrees QTc Int : 499 ms Normal sinus rhythm Left axis deviation Prolonged QT Abnormal ECG When compared with ECG of 11-DEC-2023 21:07, QT has lengthened Confirmed by Johnny Obrien ([id number]) on 12/23/2023 1:05:51 PM Referred By: REFERRED SELF Confirmed By:Jose Obrien
--- NOTE | 2023-12-23 14:33 | Nephrology Consultation ---
Date of Consultation December 23, 2023 Assessment & Plan (1) Renal transplant recipient: * Creatinine trending down compared to last hospitalization * Continue current immunosuppresive regimen * 12/25 transplant US - 4.5 cm fluid collection inferior to the allograft suggestive of lymphocele, urinoma * Monitor PRP, UO (2) Acute hyperkalemia: * Medical management w/ Ca, insulin & dextrose provided on admission * Will provide Lokelma and schedule oral NaHCO3 * Will provide Furosemide 20 mg IV x1 * Serum K completed at 1400 hrs is improved. No acute indication for TRUMPET PLAYER at this time (3) Respiratory syncytial virus (RSV): * Continue supportive care. Currently oxygenating well on RA (4) Thrombotic microangiopathy: * On Eculizumab IV q 2 weeks History of Present Illness Reason for Consultation: hyperkalemia, DDRT Attending Physician: Kim Lindsey MD History of Present Illness Mrs. Hendricks is a 63 year old white female who is seen at the request of the [facility] for evaluation of hyperkalemia in the setting of DDRT. Information for the HPI is obtained from direct patient interview and review of the medical record. HPI is summarized as follows: Mrs. 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 She required liver transplant 10/18. This was complicated by chronic TMA, CNI nephrotoxicity ans hypertensive nephrosclerosis resulting in progressive renal dysfunction. On 11/13/23 Mrs. Hendricks underwent DDKT at [facility] in [place]. There was delayed graft function. Post-transplant Cr has reportedly been 3.0. Her current immunosuppressive regimen consists of Tacrolimus 3 mg qAM/2mg qPM, MMF 250 mg BID. Her PMH is significant for chronic TMA associated w/ CNI therapy managed w/ Eculizumab q 2weeks, MGUS, IDDM, OA/DDD, spinal stenosis. Mrs. Hendricks is currently being admitted for management of RSV pneumonia. Admission labs revealed K 6.0, Cr 2.3. Allergies Allergy/AdvReac Type Severity Reaction Status Date / Time Iodinated Contrast Media Allergy Intermediate Sneezing Verified 12/22/23 19:11 and breaks out into a rash Penicillins Allergy Intermediate Hives Verified 12/22/23 19:11 doxycycline AdvReac Intermediate Vomiting Verified 12/22/23 19:11 metformin AdvReac Intermediate Gastrointestinal Verified 12/22/23 19:11 Upset Home Medications Medication Instructions Recorded Confirmed Type metoprolol succinate 25 mg 25 mg PO QAM 06/11/23 12/22/23 History tablet,extended release 24 hr blood-glucose sensor (Dexcom G7 08/17/23 12/22/23 History Sensor device) solifenacin 5 mg tablet 5 mg PO QAM #90 tabs 10/18/23 12/22/23 Rx eculizumab 300 mg/30 mL 300 mg IV .EVERY OTHER WEEK 12/11/23 12/22/23 History intravenous solution ergocalciferol (vitamin D2) 1,250 1,250 mcg PO WK 12/11/23 12/22/23 History mcg (50,000 unit) capsule insulin lispro 100 unit/mL 1 sliding scale dose subcut 12/11/23 12/22/23 History subcutaneous pen USEASDIRECTD magnesium oxide 400 mg (241.3 mg 400 mg PO BIDM 12/11/23 12/22/23 History magnesium) tablet mycophenolate mofetil 250 mg 250 mg PO AMHS 12/11/23 12/22/23 History capsule pantoprazole 40 mg tablet,delayed 40 mg PO QAM 12/11/23 12/22/23 History release sulfamethoxazole 400 1 tab PO 3XWK 12/11/23 12/22/23 History mg-trimethoprim 80 mg tablet tacrolimus 1 mg capsule, See Rx Instructions .Route .COMPLEX 12/11/23 12/22/23 History immediate-release valganciclovir 450 mg tablet 450 mg PO 2XWK 12/11/23 12/22/23 History sodium zirconium cyclosilicate 10 10 g PO DAILY@1100 hyperkalemia 12/13/23 12/22/23 Rx gram oral powder packet (Lokelma) #11 ea Patient History Medical History Varices, esophageal DM type 2 (diabetes mellitus, type 2) Plaque psoriasis Hypertension Lumbar pain with radiation down both legs Bilateral foot-drop MGUS (monoclonal gammopathy of unknown significance) Osteopenia Peripheral neuropathy Vitamin D deficiency COPD (chronic obstructive pulmonary disease) Primary biliary cirrhosis Osteoarthritis GERD (gastroesophageal reflux disease) Esophageal varices Degenerative disc disease, lumbar Anemia of chronic disease 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) Surgical History Renal transplant, status post S/P arteriovenous (AV) graft placement LUE History of lumbar laminectomy for spinal cord decompression (04/22/21) L3-L5 laminectomy Liver transplant recipient [facility] 10/13/18 History of liver transplant (10/13/18) + cholecystectomy History of total abdominal hysterectomy and bilateral salpingo-oophorectomy + appendectomy History of section X 2 History of colonoscopy History of tooth extraction Nasal polyp X 3 REMOVED History of tonsillectomy Family History Unknown Adopted Social History Smoking Status: Never smoker Second Hand Exposure: No; Do You Dip or Chew Tobacco: No; Tobacco Cessation Education Requested by Patient: No Hx Alcohol Use: No Hx Substance Use: No Preferred Language: Chadian Communication Ability: Effective Visual Impairment: No Limitations Hearing Ability: Hard of Hearing Remote Sensing Research Scientist Required: No Beliefs That Will Affect Care: None marital status: Current Living Situation: Spouse Current Living Situation Comment: Lives at home with , son, and daughter current occupational status: employed How many Children do You have: 3 Other Information That Helps Us Care for You: No Feels Safe at Home: Yes Safety Concerns: Feels Safe At This Time Childhood Exposure to Second-Hand Smoke: No Diet: low carbohydrate caffeine: Yes during the past year weight has: remained stable Dental Care, Regularly: No Physical Activity Frequency: Daily Seatbelt Use: always Sunscreen Use: No Assistive Devices: Brace/Splint/Immobilizer and Walker Assistive Devices Comment: b/l leg splints Review of Systems Constitutional: no fever Eyes: no problem reported Ear, Nose, Mouth, Throat: no problem reported Respiratory: + cough and + dyspnea Cardiovascular: no chest pain Gastrointestinal: no abdominal pain, no nausea, no vomiting and no diarrhea/loose stools Genitourinary: no dysuria Integumentary: no rash Neurologic: no problem reported Physical Exam Constitutional: + frail appearing; not in distress Eyes: PERRL, conjunctivae normal, anicteric sclerae ENMT: external ear and nose normal, oropharynx normal Neck: trachea midline, no thyromegaly Respiratory: able to speak in complete sentences; no respiratory distress and does not use accessory muscles Auscultation: + crackles Cardiovascular: Rate/Rhythm: regular rate and regular rhythm LUE AVG + bruit Gastrointestinal (Abdomen): normal bowel sounds, soft, nontender, no hepatosplenomegaly RLQ renal allograft nontender to palpation, no arterial bruit Skin: no rashes, warm and dry Neurologic: Speech / Cognition: normal speech and normal cognition Psychiatric: Affect: euthymic affect Results & Data Vital Signs (Past 12 Hours) Vital Signs Temp Pulse Pulse Resp BP Pulse Ox O2 Del Method 12/23/23 11:01 36.8 C 55 L 18 132/59 L 100 Room Air 12/23/23 08:42 62 12/23/23 08:07 56 L 12/23/23 07:55 36.9 C 59 L 18 119/71 100 Room Air 12/23/23 03:42 36.5 C 59 L 17 107/66 99 Room Air Laboratory Results Laboratory Results WBC 2.84 K/ul (4.8-10.8) L 12/22/23 18:35 RBC 3.17 M/uL (4.20-5.40) L 12/22/23 18:35 Hgb 10.2 g/dl (12.0-16.0) L 12/22/23 18:35 POC Hgb 9.9 g/dl (12.0-16.0) L 12/22/23 18:46 Hct 30.6 % (37.0-47.0) L 12/22/23 18:35 POC Hct 29 % (37-47) L 12/22/23 18:46 MCV 96.5 fL (80.0-100.0) 12/22/23 18:35 MCH 32.2 pg (25.0-34.0) 12/22/23 18:35 MCHC 33.3 g/dL (32.0-36.0) 12/22/23 18:35 RDW Std Deviation 59.9 fL (36.4-46.3) H 12/22/23 18:35 RDW Coeff of Paty 17.2 % (11.5-14.5) H 12/22/23 18:35 Plt Count 124 K/uL (130-400) L 12/22/23 18:35 MPV 10.0 fL (9.4-12.4) 12/22/23 18:35 Immature Gran % (Auto) 0.4 % 12/22/23 18:35 Neut % (Auto) 73.8 % 12/22/23 18:35 Lymph % (Auto) 16.2 % 12/22/23 18:35 [place] % (Auto) 7.4 % 12/22/23 18:35 Eos % (Auto) 1.8 % 12/22/23 18:35 Baso % (Auto) 0.4 % 12/22/23 18:35 Neut # (Auto) 2.10 K/uL (1.40-6.50) 12/22/23 18:35 Lymph # (Auto) 0.46 K/uL (1.20-3.40) L 12/22/23 18:35 [place] # (Auto) 0.21 K/uL (0.11-0.59) 12/22/23 18:35 Eos # (Auto) 0.05 K/uL (0.00-0.50) 12/22/23 18:35 Baso # (Auto) 0.01 K/uL (0.00-0.20) 12/22/23 18:35 Immature Gran # (Auto) 0.01 K/uL (0.01-0.20) 12/22/23 18:35 PT 11.6 Seconds (9.0-12.0) 12/22/23 18:35 INR 1.1 (0.9-1.1) 12/22/23 18:35 APTT 26 Seconds (21-31) 12/22/23 18:35 PTT Ratio 0.9 12/22/23 18:35 POC Sodium 137 mmol/L (135-144) 12/22/23 18:46 Sodium 137 mmol/L (136-145) 12/23/23 14:13 POC Potassium 6.1 mmol/L (3.3-5.0) H* 12/22/23 18:46 Potassium 5.2 mmol/L (3.5-5.1) H 12/23/23 14:13 POC Chloride 111 mmol/L (101-112) 12/22/23 18:46 Chloride 113 mmol/L (98-107) H 12/23/23 14:13 Carbon Dioxide 17 mmol/L (21-32) L 12/23/23 14:13 POC Total CO2 17 mmol/L (24-31) L 12/22/23 18:46 Anion Gap 7 (3-11) 12/23/23 14:13 POC Anion Gap 16.0 mmol/L (16-25) 12/22/23 18:46 POC BUN 32 mg/dl (7-18) H 12/22/23 18:46 BUN 37 mg/dl (6-23) H 12/23/23 14:13 Creatinine 2.41 mg/dl (0.6-1.2) H 12/23/23 14:13 POC Creatinine 2.3 mg/dl (0.6-1.3) H 12/22/23 18:46 Est Cr Clr Drug Dosing 19.8 ml/min 12/23/23 14:13 Est GFR ( Amer) 24.3 ml/min 12/23/23 14:13 Est GFR (Non-Af Amer) 21.0 ml/min 12/23/23 14:13 BUN/Creatinine Ratio 15.4 (10-20) 12/23/23 14:13 Glucose 198 mg/dl (70-99(Fasting)) H 12/23/23 14:13 POC Glucose 160 mg/dl (70-99) H 12/23/23 11:08 POC Glucose (other) 218 mg/dl (70-99) H 12/22/23 18:46 Calcium 8.3 mg/dl (8.6-10.3) L 12/23/23 14:13 POC Ioniz Calcium [place] 1.26 mmol/l (1.12-1.32) 12/22/23 18:46 Magnesium 1.7 mg/dl (1.7-2.4) 12/23/23 08:33 Total Bilirubin 1.3 mg/dl (0.2-1.0) H 12/22/23 18:35 AST 15 U/L (13-39) 12/22/23 18:35 ALT 10 U/L (7-52) 12/22/23 18:35 Alkaline Phosphatase 110 U/L (34-104) H 12/22/23 18:35 Troponin I High Sens 8.8 pg/ml (0-14) 12/22/23 18:35 Total Protein 7.0 gm/dl (6.0-8.3) 12/22/23 18:35 Albumin 3.9 gm/dl (3.4-5.0) 12/22/23 18:35 Globulin 3.1 gm/dl (2.5-4.0) 12/22/23 18:35 Albumin/Globulin Ratio 1.3 (0.9-2) 12/22/23 18:35 Lipase 9 U/L (11-82) L 12/22/23 18:35 Procalcitonin 0.11 ng/ml (0-0.5) 12/22/23 18:35 Urine Color Dark Yellow 12/23/23 Unknown Urine Appearance Clear (Clear) 12/23/23 Unknown Urine pH 5.5 (4.5-7.5) 12/23/23 Unknown Ur Specific [place] 1.017 (1.000-1.030) 12/23/23 Unknown Urine Protein Negative (Negative) 12/23/23 Unknown Urine Glucose (UA) Negative (Negative) 12/23/23 Unknown Urine Ketones Trace (Negative) H 12/23/23 Unknown Urine Blood Negative (Negative) 12/23/23 Unknown Urine Nitrite Negative (Negative) 12/23/23 Unknown Urine Bilirubin Negative (Negative) 12/23/23 Unknown Urine Urobilinogen Negative (Negative) 12/23/23 Unknown Ur Leukocyte Esterase Trace (Negative) H 12/23/23 Unknown Urine WBC (Auto) 1-5 /hpf (0-5) 12/23/23 Unknown Urine RBC (Auto) 0-4 /hpf (0-4) 12/23/23 Unknown U Hyaline Cast (Auto) 1-5 /lpf (0-5) 12/23/23 Unknown U Epithel Cells (Auto) >30 /lpf (0-5) H 12/23/23 Unknown Urine Bacteria (Auto) Negative (Negative) 12/23/23 Unknown Adenovirus (PCR) Not Detected (NotDetected) 12/22/23 17:19 B. pertussis DNA (PCR) Not Detected (NotDetected) 12/22/23 17:19 B.parapertussis DNA PCR Not Detected (NotDetected) 12/22/23 17:19 C. pneumoniae DNA (PCR) Not Detected (NotDetected) 12/22/23 17:19 Coronavirus OC43 (PCR) Not Detected (NotDetected) 12/22/23 17:19 Coronavirus HKU1 (PCR) Not Detected (NotDetected) 12/22/23 17:19 Coronavirus 229E (PCR) Not Detected (NotDetected) 12/22/23 17:19 SARS-CoV-2 (PCR) Not Detected (NotDetected) 12/22/23 17:19 Coronavirus NL63 (PCR) Not Detected (NotDetected) 12/22/23 17:19 Monoscreen Negative (Negative) 12/22/23 18:35 Human Metapneumovir PCR Not Detected (NotDetected) 12/22/23 17:19 Influenza Type A (PCR) Not Detected (NotDetected) 12/22/23 17:19 Influenza Type B (PCR) Not Detected (NotDetected) 12/22/23 17:19 M. pneumoniae (PCR) Not Detected (NotDetected) 12/22/23 17:19 Parainfluenza 1 (PCR) Not Detected (NotDetected) 12/22/23 17:19 Parainfluenza 2 (PCR) Not Detected (NotDetected) 12/22/23 17:19 Parainfluenza 3 (PCR) Not Detected (NotDetected) 12/22/23 17:19 Parainfluenza 4 (PCR) Not Detected (NotDetected) 12/22/23 17:19 RSV (PCR) DETECTED (NotDetected) A 12/22/23 17:19 Entero/Rhino (PCR) Not Detected (NotDetected) 12/22/23 17:19 Impressions Chest X-Ray 12/22/23 16:45 XR chest 2V PA/lateral HISTORY: 63 years-old Female cough acute cough COMPARISON: 05/24/2023 TECHNIQUE: PA and lateral views of the chest FINDINGS: Cardiomediastinal and hilar silhouettes are within normal limits. There is no pneumothorax, pleural effusion or airspace consolidation. The bones appear grossly intact. Degenerative changes of the shoulders and spine. IMPRESSION: No acute process. ACT 112: Negative or not required by law. The above report was generated using voice recognition software. It may contain grammatical, syntax or spelling errors. Electronically signed by: Timbo Sanchez M.D. 12/23/2023 6:37 AM PG Care Time/CCT Total # of Minutes Spent Total Time Spent with Patient: Total time spent is greater than 50% in coordination of care (as documented) at patient's floor/unit and/or counseling patient: Coding Level of Care Code 83129 IN/OBS CONSULT LVL 5,80M Diagnoses Renal transplant recipient Z94.0 Acute hyperkalemia E87.5 Respiratory syncytial virus (RSV) B33.8 Thrombotic microangiopathy M31.10
[2023-12-23 15:12] LABS: BUN Creatinine Ratio 15.4 (10-20); Calcium 8.3 mg/dl (8.6-10.3); Creatinine Clr Calc Pharmacy 19.8 ml/min; Est GFR (African American) 24.3 ml/min; Potassium 5.2 mmol/L (3.5-5.1)
--- NOTE | 2023-12-23 16:17 | Hospitalist Progress Note ---
Date of Service December 23, 2023 Assessment & Plan (1) Acute hyperkalemia: Plan: Acute on chronic hyperkalemia related to underlying renal dysfunction, calcineurin inhibitor, volume depletion. Reports she was restarted on 3x a week bactrim by transplant clinic and not on potassium binder at home -treated with calcium/insulin/D50/K binder in ED/at admission -K 5.4 this morning and 3x lokelma ordered by caretaker as well as oral sodium bicarbonate for metabolic acidosis -low K diet -Cr at recent baseline -continue IV fluids, monitor UOP -AM BMP (2) Respiratory syncytial virus (RSV): Plan: With cough, malaise, nausea and vomiting (resolved) - history of gastroparesis -hypotension related to volume depletion resolved with IV fluids -continue supportive care, IV fluids and antiemetics, mucinex -symptoms improving (3) Renal transplant, status post: Plan: recent renal transplant 11/13/23 complicated by thrombotic microangiopathy, followed at [facility] Continue MMF and tacrolimus, tac level pending -consulted caretaker, reviewed recs by Dr. Sauer -resume valgancyclovir -bactrim held because of hyperkalemia -gets eculizumab infusion Mondays (4) GERD (gastroesophageal reflux disease): (5) Diabetes 1.5, managed as type 1: (6) Liver transplant recipient: Plan: Secondary to [facility] in October 2018 -immunosuppressants as above -LFT, INR normal (7) Hypertension: (8) Thrombotic microangiopathy: Plan Pancytopenia: - Pancytopenia that has been worked up previously with hematology oncology with bone marrow biopsies. - CBC am - Isolation: neutropenic precautions GERD Continue Pantoprazole HTN: Continue metoprolol Hx of compression fracture of spine: -Status post laminectomy back on 04/22/2021. Diabetes 1.5, managed as type 1: - Patient's home regimen held on admission - Continue BSG checks, sliding-scale insulin, hypoglycemic protocol - BG 133-160 today DVT prophylaxis: SCDs for now (low platelets) Admission and Anticipated Discharge Date Admission Date: December 22, 2023 Subjective Rhona feels much better this morning, no more nausea and vomiting overnight, ate breakfast, has troublesome cough but not short of breath, UOP lower than normal but is making urine, mild postop tenderness RLQ allograft site unchanged, no worsening Physical Exam 2 Physical Exam: PHYSICAL EXAMINATION Last 24h vital signs reviewed, see documentation in flowsheet General: comfortable appearing, no distress HEENT: Normocephalic, atraumatic, pupils round and equal, sclerae anicteric, no conjunctival injection, moist mucus membranes Lungs: Normal respiratory effort. clear anteriorly, coarse breath sounds throughout posteriorly and frequent cough Heart: Regular rate and rhythm, no murmurs. No JVD Abdomen: Soft, nontender, nondistended. Bowel sounds present. Allograft RLQ nontender. Extremities: Warm, dry, well-perfused. No extremity edema. Neuro: Alert and oriented x 4, face symmetric, moves 4 extremities well Psych: Normal affect and behavior Results & Data Results & Data Vital Signs (Past 12 Hours) Vital Signs Temp Pulse Pulse Resp BP Pulse Ox O2 Del Method 12/23/23 15:16 36.6 C 58 L 18 124/69 98 Room Air 12/23/23 11:01 36.8 C 55 L 18 132/59 L 100 Room Air 12/23/23 08:42 62 12/23/23 08:07 56 L 12/23/23 07:55 36.9 C 59 L 18 119/71 100 Room Air Laboratory Results 12/22/23 18:35 12/23/23 14:13 PG Care Time/CCT Total # of Minutes Spent Total Time Spent with Patient: Total time spent is greater than 50% in coordination of care (as documented) at patient's floor/unit and/or counseling patient: Coding Level of Care Code 67972 SUB INP/OBS CARE 3/50MIN Diagnoses Acute hyperkalemia E87.5 Respiratory syncytial virus (RSV) B33.8 Renal transplant, status post Z94.0 Gastroesophageal reflux disease, esophagitis presence not specified K21.9 Esophagitis presence: esophagitis presence not specified Diabetes 1.5, managed as type 1 E13.9 Liver transplant recipient Z94.4 Hypertension I10 Thrombotic microangiopathy M31.10 (4) GERD (gastroesophageal reflux disease) Esophagitis presence: esophagitis presence not specified Qualified Code(s): K 21.9 - Gastro-esophageal reflux disease without esophagitis
[2023-12-23 16:39] LABS: Appearance Urine Clear (Clear); Bilirubin Urine Negative (Negative); Blood Urine Negative (Negative); Color Urine Yellow; Glucose Urine UA Negative (Negative); Ketones Urine Negative (Negative); Leukocyte Esterase Urine Negative (Negative); Nitrite Urine Negative (Negative); Protein Urine Negative (Negative); Urobilinogen Urine Negative (Negative); pH Urine 5.5 (4.5-7.5)
[2023-12-23 17:15] LABS: Protein Creatinine Ratio Urine 0.1 (0-0.2); Total Protein Urine Random 4.8 mg/dl (0-11.9)
[2023-12-24 06:55] LABS: Hematocrit (blood only) 23.6 % (37.0-47.0); Mean Corpuscular Hemoglobin 32.7 pg (25.0-34.0); Mean Corpuscular Hgb Conc 33.9 g/dL (32.0-36.0); Mean Corpuscular Volume 96.3 fL (80.0-100.0); Platelet Count 74 K/uL (130-400); RDW Standard Deviation 60.5 fL (36.4-46.3); Red Blood Count 2.45 M/uL (4.20-5.40); White Blood Count 2.03 K/ul (4.8-10.8)
[2023-12-24 07:20] LABS: Calcium 8.2 mg/dl (8.6-10.3); Creatinine Clr Calc Pharmacy 19.4 ml/min; Est GFR (Non-African American) 19.9 ml/min; Potassium 5.2 mmol/L (3.5-5.1)
--- NOTE | 2023-12-24 08:43 | Nephrology Progress Note ---
Date of Service December 24, 2023 Assessment & Plan (1) Renal transplant recipient: Plan: * has risen from 2.2 to 2.5 * Will provide 1 L 0.9 NS * Continue current immunosuppresive regimen * 12/25 transplant US - 4.5 cm fluid collection inferior to the allograft sugge stive of lymphocele, urinoma. Will repeat study today to ensure no hydronephrosis * Monitor PRP, UO (2) Acute hyperkalemia: Plan: * Medical management w/ Ca, insulin & dextrose provided on admission * Lokelma 10g po daily started * Increase NaHCO3 to 650 mg TID * No acute indication for [employer] [facility] at this time (3) Respiratory syncytial virus (RSV): Plan: * Continue supportive care. Currently oxygenating well on RA (4) Thrombotic microangiopathy: Plan: * On Eculizumab IV q 2 weeks Admission and Anticipated Discharge Date Admission Date: December 22, 2023 Subjective Mrs. Hendricks was evaluated in her hospital room this morning. She was breathing easily on RA but still has a lingering cough. She denied pain or tenderness overlying the transplant allograft Review of Systems Constitutional: no fever Eyes: no problem reported Ear, Nose, Mouth, Throat: no problem reported Respiratory: + cough Cardiovascular: no chest pain Gastrointestinal: no abdominal pain, no nausea, no vomiting and no diarrhea/loose stools Genitourinary: no dysuria Integumentary: no rash Neurologic: no problem reported Physical Exam Constitutional: + frail appearing; not in distress Eyes: PERRL, conjunctivae normal, anicteric sclerae ENMT: external ear and nose normal, oropharynx normal Neck: trachea midline, no thyromegaly Respiratory: able to speak in complete sentences; no respiratory distress and does not use accessory muscles Auscultation: lungs clear to auscultation bilaterally Cardiovascular: Rate/Rhythm: regular rate and regular rhythm Gastrointestinal (Abdomen): normal bowel sounds, soft, nontender, no hepatosplenomegaly Skin: no rashes, warm and dry Neurologic: Speech / Cognition: normal speech and normal cognition Psychiatric: Affect: euthymic affect Results & Data Vital Signs (Past 12 Hours) Vital Signs Temp Pulse Pulse Resp BP Pulse Ox Pulse Ox 12/24/23 08:24 36.7 C 77 18 141/74 H 95 12/24/23 08:06 72 12/24/23 03:19 36.9 C 62 20 152/65 H 96 12/23/23 23:59 36.9 C 63 22 131/54 L 94 12/23/23 21:37 94 O2 Del Method O2 Del Method 12/24/23 08:24 Room Air 12/24/23 08:06 12/24/23 03:19 Room Air 12/23/23 23:59 Room Air 12/23/23 21:37 Room Air Laboratory Results Laboratory Results - last 24 hr 12/23/23 12/23/23 12/23/23 08:33 11:08 14:13 WBC RBC Hgb Hct MCV MCH MCHC RDW Std Deviation RDW Coeff of Paty Plt Count MPV Sodium 137 137 Potassium 5.6 H 5.2 H Chloride 113 H 113 H Carbon Dioxide 18 L 17 L Anion Gap 6 7 BUN 36 H 37 H Creatinine 2.29 H 2.41 H Est Cr Clr Drug Dosing 20.9 19.8 Est GFR ( Amer) 25.9 24.3 Est GFR (Non-Af Amer) 22.3 21.0 BUN/Creatinine Ratio 15.7 15.4 Glucose 180 H 198 H POC Glucose 160 H Fasting Glucose Calcium 8.7 8.3 L Magnesium 1.7 Urine Color Urine Appearance Urine pH Ur Specific [place] Urine Protein Urine Glucose (UA) Urine Ketones Urine Blood Urine Nitrite Urine Bilirubin Urine Urobilinogen Ur Leukocyte Esterase Ur Random Creatinine U Random Total Protein Protein/Creatinin Ratio 12/23/23 12/23/23 12/23/23 16:13 16:16 20:34 WBC RBC Hgb Hct MCV MCH MCHC RDW Std Deviation RDW Coeff of Paty Plt Count MPV Sodium Potassium Chloride Carbon Dioxide Anion Gap BUN Creatinine Est Cr Clr Drug Dosing Est GFR ( Amer) Est GFR (Non-Af Amer) BUN/Creatinine Ratio Glucose POC Glucose 152 H 107 H Fasting Glucose Calcium Magnesium Urine Color Yellow Urine Appearance Clear Urine pH 5.5 Ur Specific [place] 1.010 Urine Protein Negative Urine Glucose (UA) Negative Urine Ketones Negative Urine Blood Negative Urine Nitrite Negative Urine Bilirubin Negative Urine Urobilinogen Negative Ur Leukocyte Esterase Negative Ur Random Creatinine 47.0 U Random Total Protein 4.8 Protein/Creatinin Ratio 0.1 12/24/23 12/24/23 12/24/23 05:34 08:09 08:11 WBC 2.03 L RBC 2.45 L Hgb 8.0 L Hct 23.6 L MCV 96.3 MCH 32.7 MCHC 33.9 RDW Std Deviation 60.5 H RDW Coeff of Paty 17.0 H Plt Count 74 L MPV 11.0 Sodium 138 Potassium 5.2 H Chloride 114 H Carbon Dioxide 19 L Anion Gap 5 BUN 39 H Creatinine 2.52 H Est Cr Clr Drug Dosing 19.4 Est GFR ( Amer) 23.0 Est GFR (Non-Af Amer) 19.9 BUN/Creatinine Ratio Glucose POC Glucose 366 H* 170 H Fasting Glucose 137 H Calcium 8.2 L Magnesium Urine Color Urine Appearance Urine pH Ur Specific [place] Urine Protein Urine Glucose (UA) Urine Ketones Urine Blood Urine Nitrite Urine Bilirubin Urine Urobilinogen Ur Leukocyte Esterase Ur Random Creatinine U Random Total Protein Protein/Creatinin Ratio 12/24/23 08:12 WBC RBC Hgb Hct MCV MCH MCHC RDW Std Deviation RDW Coeff of Paty Plt Count MPV Sodium Potassium Chloride Carbon Dioxide Anion Gap BUN Creatinine Est Cr Clr Drug Dosing Est GFR ( Amer) Est GFR (Non-Af Amer) BUN/Creatinine Ratio Glucose POC Glucose 179 H Fasting Glucose Calcium Magnesium Urine Color Urine Appearance Urine pH Ur Specific [place] Urine Protein Urine Glucose (UA) Urine Ketones Urine Blood Urine Nitrite Urine Bilirubin Urine Urobilinogen Ur Leukocyte Esterase Ur Random Creatinine U Random Total Protein Protein/Creatinin Ratio Diagnostic Findings 12/21/23 Tacrolimus - pending PG Care Time/CCT Total # of Minutes Spent Total Time Spent with Patient: Total time spent is greater than 50% in coordination of care (as documented) at patient's floor/unit and/or counseling patient: Coding Level of Care Code 94123 SUB INP/OBS CARE 3/50MIN Diagnoses Renal transplant recipient Z94.0 Acute hyperkalemia E87.5 Respiratory syncytial virus (RSV) B33.8 Thrombotic microangiopathy M31.10
[2023-12-24] MEDS: SODIUM BICARBONATE 650 MG TAB PO SCH (08:46)
[2023-12-24] MEDS: SODIUM ZIRCONIUM CYCLOSILICATE 10 GM PACKET PO SCH (08:46)
[2023-12-24] MEDS: SODIUM CHLORIDE 0.9% 1,000 ML IV SCH (10:46)
[2023-12-24] MEDS ORDERED: SODIUM ZIRCONIUM CYCLOSILICATE 10 GM PACKET PO SCH (11:00)
[2023-12-24] MEDS: MAGNESIUM OXIDE 400 MG TAB PO SCH (12:17)
--- NOTE | 2023-12-24 14:39 | Ultrasound Report ---
US renal transplant w dop CLINICAL HISTORY: follow up allograft fluid collection, eval for EVY COMPARISON STUDY: Renal transplant ultrasound December 12, 2023. TECHNIQUE: Grayscale, color and duplex Doppler sonography of the right lower quadrant renal allograft was performed. FINDINGS: The size of the right lower quadrant renal allograft is normal. Mild allograft collecting s ystem dilatation is similar to ultrasound of December 12, 2023. The perigraft fluid collection shown on prior exam has resolved. There is trace perigraft edema. The transplant renal artery and vein are patent. Resistive indices within the segmental vessels are normal ranging from 0.63 to 0.73. Mildly e levated velocity within the transplant artery of 244 cm/s has decreased since ultrasound of December 12, 2023. The peak systolic velocity within the adjacent iliac artery was 115 cm/s. IMPRESSION: 1. Patent allograft vessels. Mildly elevated velocities within the renal transplant artery have decre ased since ultrasound of December 12, 2023 and waveforms and resistive indices within the segmental v essels are normal. Therefore, a significant renal artery stenosis is considered unlikely however cont inued sonographic follow-up is recommended. 2. Mild allograft collecting system dilatation, unchanged since prior exam. Resolution of the perigra ft fluid collection. ACT 112: Negative or not required by law. Electronically signed by: Omar Orlando M.D. 12/24/2023 2:37 PM
--- NOTE | 2023-12-24 16:59 | Hospitalist Progress Note ---
Date of Service December 24, 2023 Assessment & Plan (1) Acute hyperkalemia: Plan: Acute on chronic hyperkalemia related to underlying renal dysfunction, calcineurin inhibitor, volume depletion. Reports she was restarted on 3x a week bactrim by transplant clinic and not on potassium binder at home -treated with calcium/insulin/D50/K binder in ED/at admission -K 5.4 12/24 and 3x lokelma ordered by housekeeper and laundry assistant as well as oral sodium bicarbonate for metabolic acidosis -K 5.2 today - daily lokelma ordered -renal duplex ordered to reeval fluid collection present last admission - has resolved, resistive indices improved no evidence of vessel stenosis -low K diet -Cr at recent baseline -continue IV fluids, monitor UOP -AM [facility] abd transplant coord out of town until Wednesday, community action worker # is [phone] (2) Respiratory syncytial virus (RSV): Plan: With cough, malaise, nausea and vomiting (resolved) - history of gastroparesis -hypotension related to volume depletion resolved with IV fluids -continue supportive care, IV fluids and antiemetics, mucinex -symptoms improving (3) Renal transplant, status post: Plan: recent renal transplant 11/13/23 complicated by thrombotic microangiopathy, [facility] Continue MMF and tacrolimus, tac level pending -consulted housekeeper and laundry assistant, reviewed recs by Dr. Sauer -resume valgancyclovir (, ) -bactrim held because of hyperkalemia - they instructed her to resume however she felt too poorly so has NOT been taking it - needs to be replaced with dapsone? -gets eculizumab infusion Mondays (4) GERD (gastroesophageal reflux disease): (5) Diabetes 1.5, managed as type 1: (6) Liver transplant recipient: Plan: Secondary to [place]ott in October 2018 -immunosuppressants as above -LFT, INR normal (7) Hypertension: (8) Thrombotic microangiopathy: Plan Pancytopenia: - Pancytopenia that has been worked up previously with hematology oncology with bone marrow biopsies. - CBC with drop in Hct but no evidence of bleeding likely dilutional - Isolation: neutropenic precautions GERD Continue Pantoprazole HTN: Continue metoprolol Hx of compression fracture of spine: -Status post laminectomy back on 04/22/2021. Diabetes 1.5, managed as type 1: - Patient's home regimen is sliding scale lispro - Continue BSG checks, sliding-scale insulin, hypoglycemic protocol - BG labile 96-366 today DVT prophylaxis: SCDs for now (low platelets) Admission and Anticipated Discharge Date Admission Date: December 22, 2023 Subjective coughing and malaise but better, no more N/V reports UOP much improved Physical Exam 2 Physical Exam: PHYSICAL EXAMINATION Last 24h vital signs reviewed, see documentation in flowsheet exam unchanged 12/24 General: comfortable appearing, no distress HEENT: Normocephalic, atraumatic, pupils round and equal, sclerae anicteric, no conjunctival injection, moist mucus membranes Lungs: Normal respiratory effort. clear anteriorly, coarse breath sounds throughout posteriorly and frequent cough Heart: Regular rate and rhythm, no murmurs. No JVD Abdomen: Soft, nontender, nondistended. Bowel sounds present. Allograft RLQ nontender. Extremities: Warm, dry, well-perfused. No extremity edema. Neuro: Alert and oriented x 4, face symmetric, moves 4 extremities well Psych: Normal affect and behavior Results & Data Results & Data Vital Signs (Past 12 Hours) Vital Signs Temp Pulse Pulse Resp BP Pulse Ox O2 Del Method 12/24/23 14:36 36.5 C 70 18 142/59 H 98 Room Air 12/24/23 11:55 36.6 C 69 16 133/61 97 Room Air 12/24/23 09:00 Room Air 12/24/23 08:24 36.7 C 77 18 141/74 H 95 Room Air 12/24/23 08:06 72 Laboratory Results 12/24/23 05:34 12/24/23 05:34 PG Care Time/CCT Total # of Minutes Spent Total Time Spent with Patient: Total time spent is greater than 50% in coordination of care (as documented) at patient's floor/unit and/or counseling patient: Coding Level of Care Code 16681 SUB INP/OBS CARE 2/35MIN Diagnoses Acute hyperkalemia E87.5 Respiratory syncytial virus (RSV) B33.8 Renal transplant, status post Z94.0 Gastroesophageal reflux disease, esophagitis presence not specified K21.9 Esophagitis presence: esophagitis presence not specified Diabetes 1.5, managed as type 1 E13.9 Liver transplant recipient Z94.4 Hypertension I10 Thrombotic microangiopathy M31.10 (4) GERD (gastroesophageal reflux disease) Esophagitis presence: esophagitis presence not specified Qualified Code(s): K 21.9 - Gastro-esophageal reflux disease without esophagitis
[2023-12-25 06:49] LABS: Calcium 8.3 mg/dl (8.6-10.3); Creatinine Clr Calc Pharmacy 24.4 ml/min; Est GFR (African American) 29.2 ml/min; Est GFR (Non-African American) 25.2 ml/min; Potassium 4.7 mmol/L (3.5-5.1)
[2023-12-25 10:11] LABS: Hematocrit (blood only) 23.9 % (37.0-47.0); Hemoglobin 8.1 g/dl (12.0-16.0)
--- NOTE | 2023-12-25 11:26 | Nephrology Progress Note ---
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 Posttransplant course was complicated by delayed graft function, and required dialysis during last admission. Admitted again this time with generalized weakness, hypokalemia and found to have RSV. Potassium improved with Lokelma. She was on Bactrim which was on hold. On IS with Tacrolimus 3 mg qAM/2mg qPM, MMF 250 mg BID. Chronic TMA being managed w/ Eculizumab q 2weeks. PMH also significant for MGUS, IDDM, OA/DDD, spinal stenosis. Overall she is feeling much better, clinically improved. Kidney function staying relatively stable in fact creatinine has been slowly improving, down to 2.1 this morning. Potassium normalized. Has metabolic acidosis. -- Okay to resume Bactrim, continue to keep off of potassium binder, advised to follow low potassium diet. She has labs scheduled next Wednesday with transplant center and if potassium again high, it would be reasonable to resume Lokelma at that point. -- Continue on sodium bicarbonate 1 tab twice a day --Check hemoglobin before this just to make sure hemoglobin staying stable. -- Okay to be discharged. Will follow while inpatient. Admission and Anticipated Discharge Date Admission Date: December 22, 2023 Mervin Melgoza was seen and evaluated this morning. Overall she is feeling well, denies shortness of breath, chest pain, cough, fever or chills. Hemoglobin dropped slightly to 8.0 this morning, creatinine improved down to 2.1. Potassium was 4.7, bicarb remains low. Reports voiding normally. Blood pressure fair. Review of Systems Review of Systems: Detailed review of system was otherwise unremarkable. Physical Exam Constitutional: WD/WN, vitals as above no acute distress Eyes: + anicteric sclerae Neck: normal visual inspection Respiratory: no respiratory distress Auscultation: lungs clear to auscultation bilaterally Cardiovascular: Rate/Rhythm: regular rate and regular rhythm Heart Sounds: normal S1 and normal S2 Extremities: + AV fistula (left BC AVF with thrill and bruit.); no edema Skin: no rashes, warm and dry Neurologic: no focal motor deficits Psychiatric: Orientation: alert and oriented x 3 Results & Data Vital Signs (Past 12 Hours) Vital Signs Temp Pulse Pulse Resp BP Pulse Ox O2 Del Method 12/25/23 09:57 36.8 C 66 16 153/64 H 96 12/25/23 08:45 62 12/25/23 08:45 Room Air 12/25/23 08:34 36.8 C 66 16 153/64 H 96 Room Air 12/25/23 08:20 36.7 C 70 19 141/64 H 75 L Room Air 12/25/23 03:11 36.8 C 65 18 133/60 97 Room Air PG Care Time/CCT Total # of Minutes Spent Total Time Spent with Patient: Total time spent is greater than 50% in coordination of care (as documented) at patient's floor/unit and/or counseling patient: Coding Level of Care Code 88413 SUB INP/OBS CARE 2/35MIN Diagnoses MADELEINE (acute kidney injury) N17.9 Acute hyperkalemia E87.5 Renal transplant recipient Z94.0 Anemia D64.9 Anemia type: unspecified type Leukopenia D72.819 Leukopenia type: unspecified Respiratory syncytial virus (RSV) B33.8 (4) Anemia Anemia type: unspecified type Qualified Code(s): D64.9 - Anemia, unspecified (5) Leukopenia Leukopenia type: unspecified Qualified Code(s): D72.819 - Decreased white blood cell count, unspecified
--- NOTE | 2023-12-25 17:52 | Discharge Summary ---
Date of Service December 25, 2023 Admission HPI Per Admitting Provider Patient is a 63-year-old female with past medical history of liver (2007) and renal transplant on November 2023 type I diabetic with diabetic neuropathy, GERD, vitamin D deficiency, urinary incontinence, and status post laminectomy on 04/22/2021. Currently on tacrolimus and eculizumab weekly. Patient was sent from her PCP due to generalized illness, cough, vomiting, diarrhea and hyperkalemia. Found in ED with K: 6.1. She refers that grandson was diagnosed with RSV last week. She has not been able to tolerate food today due to nausea and vomits. Had 2 episodes of diarrhea. Patient also has a past medical history of anemia of chronic disease, pancytopenia and follows with hematology/oncology. She takes Bactrim and valganciclovir Patient had an admission from 12/11-12/13 for hyperkalemia. Received 3 rounds of D50/IV insulin, serial doses of Lokelma and a round of Hemodialysis. Patient also has a past medical history of anemia of chronic disease, pancytopenia and follows with hematology/oncology. At arrival patient found with hyperlakemia of 6.1. Positive for RSV. Metabolic acidosis (CO 17). She received bicarb, insulin/ D5W and one bolus of NSS. Principal Diagnosis acute on chronic hyperkalemia, recent renal transplant, RSV bronchiolitis Discharge Exam PHYSICAL EXAMINATION Last 24h vital signs reviewed, see documentation in flowsheet exam unchanged 12/25 General: comfortable appearing, no distress, sitting in chair HEENT: Normocephalic, atraumatic, pupils round and equal, sclerae anicteric, no conjunctival injection, moist mucus membranes Lungs: Normal respiratory effort. clear anteriorly, coarse breath sounds throughout posteriorly but good air movement Heart: Regular rate and rhythm, no murmurs. No JVD Abdomen: nondistended Extremities: Warm, dry, well-perfused. No extremity edema. Neuro: Alert and oriented x 4, face symmetric, moves 4 extremities well Psych: Normal affect and behavior Discharge Data Allergies Allergy/AdvReac Type Severity Reaction Status Date / Time Iodinated Contrast Media Allergy Intermediate Sneezing Verified 12/22/23 19:11 and breaks out into a rash Penicillins Allergy Intermediate Hives Verified 12/22/23 19:11 doxycycline AdvReac Intermediate Vomiting Verified 12/22/23 19:11 metformin AdvReac Intermediate Gastrointestinal Verified 12/22/23 19:11 Upset Consultations 12/22/23 20:04 ED Decision to Admit Stat 12/22/23 21:37 Consult Nephrology Routine 12/25/23 09:45 Burn CD for patient Routine Ordered Studies 12/24/23 09:50 US renal transplant w dop Routine Chest X-Ray 12/22/23 16:45 XR chest 2V PA/lateral HISTORY: 63 years-old Female cough acute cough COMPARISON: 05/24/2023 TECHNIQUE: PA and lateral views of the chest FINDINGS: Cardiomediastinal and hilar silhouettes are within normal limits. There is no pneumothorax, pleural effusion or airspace consolidation. The bones appear grossly intact. Degenerative changes of the shoulders and spine. IMPRESSION: No acute process. ACT 112: Negative or not required by law. The above report was generated using voice recognition software. It may contain grammatical, syntax or spelling errors. Electronically signed by: Timbo Sanchez M.D. 12/23/2023 6:37 AM Renal Ultrasound 12/24/23 09:50 US renal transplant w dop CLINICAL HISTORY: follow up allograft fluid collection, eval for EVY COMPARISON STUDY: Renal transplant ultrasound December 12, 2023. TECHNIQUE: Grayscale, color and duplex Doppler sonography of the right lower quadrant renal allograft was performed. FINDINGS: The size of the right lower quadrant renal allograft is normal. Mild allograft collecting system dilatation is similar to ultrasound of December 12, 2023. The perigraft fluid collection shown on prior exam has resolved. There is trace perigraft edema. The transplant renal artery and vein are patent. Resistive indices within the segmental vessels are normal ranging from 0.63 to 0.73. Mildly elevated velocity within the transplant artery of 244 cm/s has decreased since ultrasound of December 12, 2023. The peak systolic velocity within the adjacent iliac artery was 115 cm/s. IMPRESSION: 1. Patent allograft vessels. Mildly elevated velocities within the renal transplant artery have decreased since ultrasound of December 12, 2023 and waveforms and resistive indices within the segmental vessels are normal. Therefore, a significant renal artery stenosis is considered unlikely however continued sonographic follow-up is recommended. 2. Mild allograft collecting system dilatation, unchanged since prior exam. Resolution of the perigraft fluid collection. ACT 112: Negative or not required by law. Electronically signed by: Omar Orlando M.D. 12/24/2023 2:37 PM 12/25/23 05:52 12/25/23 05:52 Hospital Course (1) Acute hyperkalemia: Acute on chronic hyperkalemia related to underlying renal dysfunction, calcineurin inhibitor, volume depletion. Had nausea and vomiting prior to admission. Reports she was restarted on 3x a week bactrim by transplant clinic (though did not take because she was feeling ill) and not on potassium binder at home -treated with calcium/insulin/D50/K binder in ED/at admission -K 5.4 12/24 and 3x lokelma ordered by beet end supervisor as well as oral sodium bicarbonate for metabolic acidosis -K 5.2 on 12/24 and one dose lokelma -4.7 today -low urine output resolved after IV fluids, Cr 2.0 better than recent checks -repeat renal ultrasound showed resolution of previously seen perinephric fluid collection, improvement in resistive indices normal blood flow -beet end supervisor recommended sodium bicarb 1 tablet bid for metabolic acidosis, bicarb improved to 19 today -discussed with Dr. Sykes Contacted [facility], [facility] cosmetic account coordinator day of discharge and updated She has appt with them Wednesday with CBC, BMP etc (2) Respiratory syncytial virus (RSV): With cough, malaise, nausea and vomiting (resolved) - history of gastroparesis -hypotension related to volume depletion resolved with IV fluids -continue supportive care, IV fluids and antiemetics, mucinex -symptoms improving, has cough but no further GI symptoms (3) Renal transplant, status post: recent renal transplant 11/13/23 complicated by thrombotic microangiopathy, followed at [facility] Continue MMF and tacrolimus, tac level was high at 22 on 12/21 but was very dehydrated -consulted beet end supervisor -resumed valgancyclovir (, ) -bactrim 3x a week resumed -gets eculizumab infusion Mondays (4) GERD (gastroesophageal reflux disease): (5) Diabetes 1.5, managed as type 1: (6) Liver transplant recipient: Secondary to [facility] in October 2018 -immunosuppressants as above -LFT, INR normal (7) Hypertension: (8) Thrombotic microangiopathy: Plan Pancytopenia: - Pancytopenia that has been worked up previously with hematology oncology with bone marrow biopsies. - CBC with drop in Hct but no evidence of bleeding likely dilutional. Baseline is 10. Was 8 on 12/24, stable at 8.1 today. Has labs Wednesday outpatient GERD Continue Pantoprazole HTN: Continue metoprolol Hx of compression fracture of spine: -Status post laminectomy back on 04/22/2021. Diabetes 1.5, managed as type 1: - Patient's home regimen is sliding scale lispro Total Time Total Time Spent Total Time Spent (In Minutes): I personally spent: 45 minutes today on clinical care activities including: reviewing chart notes and vital signs reviewing labs discussion with [employer] drm consultant, cosmetic account coordinator examining and counseling the patient writing orders documentation Discharge Plan Discharge Items Patient Disposition: Home - Home Health Services Reason For Visit: HYPERKALEMIA/ RSV Discharge Diagnosis: Hyperkalemia and dehydration, RSV bronchiolitis Activity: Resume your previous activity Non-emergency contact: Primary Care Provider and Cro Call non-emergency contact if: you have any medication questions and your symptoms worsen Follow-up/Referrals: She Davis DO [Primary Care Provider] - 01/04/24 10:20 am Diet: Carb Count or DM1 and Low Potassium (2gm) Addtl Attending Provider Instructions: You were treated for dehydration, high potassium related to RSV upper respiratory tract infection -resume your usual medications -resume bactrim 3x a week -the beet end supervisor recommended sodium bicarbonate twice a day for metabolic acidosis -the fluid collection seen previously on your kidney ultrasound has resolved -follow up Wednesday as scheduled with transplant clinic - you'll need your CBC and blood chemistry panel checked -you can take over the counter mucinex as directed for cough -acetaminophen maximum of 2000 mg per day is safe for aches and pains -stay hydrated Kim Lindsey MD Pending Studies at Discharge: No Stand-Alone Forms: My [employer], Smoking Cessation Medications and DC Order Prescriptions: New sodium bicarbonate 650 mg Tablet 650 mg PO BID Qty: 60 0RF guaifenesin [Mucinex] 600 mg Tablet Extended Release 12hr 600 mg PO Q12 Qty: 0 0RF Rx Instructions: buy over the counter, as needed for cough/mucus Continued solifenacin 5 mg tablet 5 mg PO QAM Qty: 90 3RF (DME) Dexcom G7 Sensor Device See Rx Instructions .Route Rx Instructions: As directed metoprolol succinate 25 mg tablet extended release 24 hr 25 mg PO QAM tacrolimus 1 mg capsule See Rx Instructions .ROUTE .COMPLEX Rx Instructions: take 3 mg orally in the morning and 2 mg orally at night mycophenolate mofetil 250 mg capsule 250 mg PO AMHS pantoprazole 40 mg tablet,delayed release (DR/EC) 40 mg PO QAM sulfamethoxazole-trimethoprim 400-80 mg tablet 1 tab PO 3XWK Hold Instructions: Resume on 01/03/24. hold this medication - discuss it with your transplant team Rx Instructions: TAKES WED, WED, & WED ergocalciferol (vitamin D2) 1,250 mcg (50,000 unit) Capsule 1,250 mcg PO WK Rx Instructions: mondays valganciclovir 450 mg tablet 450 mg PO 2XWK Rx Instructions: take 450 mg orally in the morning of MONDAYS & THURSDAYS magnesium oxide 400 mg (241.3 mg magnesium) tablet 400 mg PO BIDM insulin lispro 100 unit/mL Insulin Pen 1 sliding scale dose SUBCUT USEASDIRECTD eculizumab 300 mg/30 mL Solution 300 mg IV .EVERY OTHER WEEK Rx Instructions: MONDAYS Discontinued Lokelma 10 gram Powder In Packet 10 g PO DAILY@1100 Qty: 11 0RF Discharge Orders: Discharge Order (Routine); Ordered 12/25/23 Ordered By: Kim Holly/Other Patient Handouts: Sodium Bicarbonate Oral Tablet Admission Data Admit Date/Time: 12/22/23 20:44 Attending Provider: Kim Lindsey Admit Provider: Amber Perez Primary Care Provider: She Davis Other Providers: Phillip Tobin; Mathew Sauer; Jorge Alberto Arreaga [facility] Other Interventions: Discharge Summary Assessment (RN) Last Done: 12/25/23 09:57 Coding Level of Care Code 02779 INP/OBS DISCH >30 MIN Diagnoses Acute hyperkalemia E87.5 Respiratory syncytial virus (RSV) B33.8 Renal transplant, status post Z94.0 Gastroesophageal reflux disease, esophagitis presence not specified K21.9 Esophagitis presence: esophagitis presence not specified Diabetes 1.5, managed as type 1 E13.9 Liver transplant recipient Z94.4 Hypertension I10 Thrombotic microangiopathy M31.10
[2023-12-27] MEDS ORDERED: VALGANCICLOVIR HCL 450 MG TABLET PO SCH (09:00)
[2023-12-27] MEDS ORDERED: ERGOCALCIFEROL 1250 MCG (50,000 UNITS) CAP PO SCH (09:00)
== END 2023-12-25 11:32 | disposition home health service (06) | DRG 640 ==
LOC: ED 16:23 → SUATTDRO 20:44 → 2S 20:44

== ENCOUNTER 2024-04-19 09:26 | Inpatient (IN) ==
--- NOTE | 2024-04-19 09:51 | Emergency Department Note ---
Impression & Plan Acute hyperkalemia, Pancytopenia, History of kidney transplant, Hypomagnesemia ED Provider Note NAME: JULIOCESAR LU AGE: 64 SEX: F : 1960 ARRIVES VIA: Walk-In INFORMANT: Patient, Triage note, significant other ED PROVIDER(S): Matt Tavera MD CHIEF COMPLAINT: Outpatient referral, abnormal potassium MEDICAL DECISION MAKING: Patient presented due to concern for elevated potassium. IV was established and repeat blood work was obtained along with an EKG. CBC shows pancytopenia. The patient's kidney function with a creatinine 1.59. Patient's outpatient potassium was 5.9. Repeat here today was 6.8. The patient was ordered 10 of insulin IV, dextrose, albuterol 10 mg as a neb treatment as well as Lokelma. Patient was also ordered 1 g of IV calcium gluconate. Magnesium was low and was ordered magnesium oxide for repletion. I did speak with the on-call hospitalist service for admission. I also did speak with Dr. Howard who agreed with current plan of care. Critical Care: I have personally spent 35 minutes of critical care time in direct management of this patient. This includes bedside care, interpretation of diagnostic studies, and testing, discussion with consultants, patient, and family members, and other require inpatient management activities. This 35 minutes is in excess of all separately billable procedures. Discussion w/ other healthcare providers: Dr. Ba with hematology Dr. Howard with nephrology YURY Wright PA-C and Dr. Pedro inpatient medicine service Prior /Outside records reviewed: I reviewed an operative report from March 20, 2024 Dr. Suggs. The patient did have an [id number] inserted at that time. Differential diagnosis: Kidney disease, potassium supplementation, medication noncompliance, dehydration Diagnostics, as interpreted by me: ECG: Sinus bradycardia with PACs, rate of 48, normal MI and QRS prolonged QT but normal QTc, left axis deviation no ST elevations. Cardiac monitoring: An order was placed for continuous cardiac monitoring. The monitor shows a rate of 52 with sinus rhythm. Patient was placed on pulse oximetry Medical decision rules: None Imaging studies: None HPI: Patient presents due to concern for elevated potassium that was noted earlier today. The patient was seen at the cancer center and Dr. Ba's office is at which time she had blood work completed and did receive an IV infusion due to concern for her kidney transplants and immunocompromisation. Patient denies any increase in potassium foods like orange juice potatoes and Sami fries. Patient's med list does show the patient is on Pen-Vee K which the patient has been taking for the last month month and a half of his prophylaxis due to concern for her compromised immune system. Patient was referred here today due to concern potassium of 5.9. The patient's blood work from earlier today shows a leukopenia 3.1 anemia of 10. Primary cytopenia at 102,000. The patient's kidney function with creatinine 1.58 potassium today 5.9. After further discussion with the patient patient relates that she has only been taking the liquid medication. This is what was discussed with Dr. Chadwick who states that this was Kayexalate but the patient has not been taking her potassium binder Lokelma. Magnesium is slightly low today at 1.5. PAST MEDICAL HISTORY: See Below PAST SURGICAL HISTORY: See Below SOCIAL HISTORY: See Below HOME MEDICATIONS: See Below ALLERGIES: See Below VITALS: See Below PHYSICAL EXAMINATION: GENERAL: NAD, non-toxic. Wears glasses. EYE EXAM: Normal conjunctiva. PERRL, no anisocoria and EOM's grossly intact w/o pain. OROPHARYNX: Moist mucus membranes, grossly normal dentition. NECK: Trachea midline, no stridor. LUNGS: Clear to auscultation. Normal chest wall mechanics. HEART: NSR, no MRG. ABDOMEN: Abdomen soft, non-tender, no masses, no rebound or guarding. BACK: No CVA TTP. SKIN: No rashes and no bruising. UPPER EXTREMITIES: Upper extremities are grossly normal. Left upper extremity AV fistula with palpable thrill. LOWER EXTREMITIES: Grossly normal, no edema. NEURO EXAM: A&O x3, cranial nerves II-XII grossly intact, normal speech, moves all 4 extremities. Past Med/Surg History Problem List (Updated 04/19/24 @ 14:56 by Matt Tavera MD) Hypomagnesemia (Acute) History of kidney transplant (Acute) Pancytopenia (Acute) Dyspnea Leukopenia (Acute) Acute hyperkalemia (Acute) Thrombotic microangiopathy Renal transplant, status post History of colon polyps History of compression fracture of vertebral column (05/14/22) lumbar vertebra compression fracture History of vertebral fracture (~03/12/19) L1-L3 stress fractures Abnormal CT scan of lung Morbid obesity with BMI of 40.0-44.9, adult Neutropenia Pancytopenia Peripheral edema Diarrhea Proteinuria Ambulatory dysfunction (Acute) Lumbar pain with radiation down both legs Urinary incontinence, urge Diabetes mellitus with neurological manifestations, uncontrolled (Chronic) Diabetes 1.5, managed as type 1 (Chronic) Trigger finger of right hand Trigger finger of left hand Environmental allergies Hx of compression fracture of spine L1 and L4 Low back pain Anemia aplastic aregenerative (Acute) Dyslipidemia (Chronic) Enthesopathy of foot (Chronic) Gastroparesis (Acute) 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) Microscopic hematuria (Acute) Diabetic neuropathy (Chronic) Vitamin D deficiency (Chronic) Osteoarthritis Primary biliary cirrhosis GERD (gastroesophageal reflux disease) Cholestatic pruritus Anemia of chronic disease (Chronic) Plaque psoriasis Hypertension MGUS (monoclonal gammopathy of unknown significance) (Chronic) Osteopenia (Acute) Peripheral neuropathy (Chronic) Liver transplant recipient (Chronic ~10/13/18) [facility] 10/13/18 Bilateral foot-drop (Chronic) 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 Osteoarthritis GERD (gastroesophageal reflux disease) Surgical History Hx of esophagogastroduodenoscopy Hx of appendectomy Kidney transplant recipient (~11/2023) right side, [facility], follows with Keesha Lopez S/P arteriovenous (AV) graft placement LUE - not currently in use History of lumbar laminectomy for spinal cord decompression (04/22/21) L3-L5 laminectomy History of total abdominal hysterectomy and bilateral salpingo-oophorectomy History of section X 2 History of colonoscopy History of tooth extraction Nasal polyp X 3 REMOVED History of tonsillectomy Family History Unknown Adopted Social History Smoking Status: Never smoker Second Hand Exposure: No; Do You Dip or Chew Tobacco: No; Hx Alcohol Use: No Hx Substance Use: No Preferred Language: Wolof Communication Ability: Effective Visual Impairment: No Limitations Hearing Ability: Normal Character Impersonator Required: Yes Beliefs That Will Affect Care: None marital status: Current Living Situation: Spouse Current Living Situation Comment: Lives at home with , son, and daughter current occupational status: employed How many Children do You have: 3 Other Information That Helps Us Care for You: No Feels Safe at Home: Yes Safety Concerns: Feels Safe At This Time Childhood Exposure to Second-Hand Smoke: No Diet: low carbohydrate caffeine: Yes during the past year weight has: remained stable Dental Care, Regularly: No Physical Activity Frequency: Daily Seatbelt Use: always Sunscreen Use: No Assistive Devices: Cane Allergies Allergies Allergy/AdvReac Type Severity Reaction Status Date / Time Iodinated Contrast Media Allergy Intermediate Sneezing Verified 03/25/24 18:47 and breaks out into a rash doxycycline AdvReac Intermediate Vomiting Verified 03/25/24 18:47 metformin AdvReac Intermediate Gastrointestinal Verified 03/25/24 18:47 Upset Home Meds Home Medications Medication Instructions Recorded Confirmed blood-glucose sensor (Dexcom G7 08/17/23 01/04/24 Sensor device) insulin lispro 100 unit/mL 1 sliding scale dose subcut 12/11/23 04/19/24 subcutaneous pen USEASDIRECTD mycophenolate mofetil 250 mg 250 mg PO UD 12/11/23 04/19/24 capsule (CellCept) pantoprazole 40 mg tablet,delayed 40 mg PO QAM 12/11/23 04/19/24 release tacrolimus 1 mg capsule, 1 mg PO UD 01/04/24 04/19/24 immediate-release (Prograf) penicillin V potassium 250 mg 250 mg PO BID 03/25/24 04/19/24 tablet sodium polystyrene sulfonate 15 60 ml PO DAILY 04/19/24 04/19/24 gram-sorbitol 20 gram/60 mL oral susp (SPS (with sorbitol)) valganciclovir 450 mg tablet 900 mg PO DAILY 04/19/24 04/19/24 Previous Rx's Medication Instructions Recorded sodium bicarbonate 650 mg tablet 650 mg PO BID #60 tabs 12/25/23 miscellaneous medical supply #1 L 01/05/24 solifenacin 5 mg tablet (Vesicare) 5 mg PO QAM #90 tabs 03/16/24 Results & Data (ED) Vital Signs Vital Signs - 24 hr 04/19/24 09:39 04/19/24 09:52 04/19/24 10:01 Temperature 36.7 C Temperature Source Temporal Artery Scan Pulse Rate 47 L 46 L Pulse Rate [Apical] 48 L Pulse Rhythm [Apical] Pulse Strength [Apical] Respiratory Rate 14 16 Respiratory Effort / Characteristics Non-Labored Spontaneous Respiratory Depth Normal Respiratory Pattern Blood Pressure 142/60 H Blood Pressure [Right Arm] 141/66 H Blood Pressure Mean 87 Blood Pressure Mean [Right Arm] 91 Pulse Oximetry 99 94 Oxygen Delivery Method Room Air Sepsis New/Unexplained Change in Mental Status No Sepsis Action Taken by Nursing No Action Required 04/19/24 12:00 Temperature Temperature Source Pulse Rate Pulse Rate [Apical] 58 L Pulse Rhythm [Apical] Regular Pulse Strength [Apical] Normal Respiratory Rate 16 Respiratory Effort / Characteristics Non-Labored Spontaneous Respiratory Depth Normal Respiratory Pattern Regular Blood Pressure Blood Pressure [Right Arm] 141/66 H Blood Pressure Mean Blood Pressure Mean [Right Arm] 91 Pulse Oximetry 99 Oxygen Delivery Method Room Air Sepsis New/Unexplained Change in Mental Status Sepsis Action Taken by Residential Medications Current Medication List: was personally reviewed by me Laboratory Data Attestation: I reviewed the patient's lab results. 04/19/24 10:35 04/19/24 12:29 Lab Results 04/19/24 Range/Units 10:35 WBC 3.24 L (4.8-10.8) K/ul RBC 3.24 L (4.20-5.40) M/uL Hgb 10.2 L (12.0-16.0) g/dl Hct 29.8 L (37.0-47.0) % MCV 92.0 (80.0-100.0) fL MCH 31.5 (25.0-34.0) pg MCHC 34.2 (32.0-36.0) g/dL RDW Std Deviation 43.7 (36.4-46.3) fL RDW Coeff of Paty 13.1 (11.5-14.5) % Plt Count 94 L (130-400) K/uL MPV 11.4 (9.4-12.4) fL Immature Gran % (Auto) 0.0 % Neut % (Auto) 60.8 % Lymph % (Auto) 28.4 % [place] % (Auto) 6.2 % Eos % (Auto) 4.3 % Baso % (Auto) 0.3 % Neut # (Auto) 1.97 (1.40-6.50) K/uL Lymph # (Auto) 0.92 L (1.20-3.40) K/uL [place] # (Auto) 0.20 (0.11-0.59) K/uL Eos # (Auto) 0.14 (0.00-0.50) K/uL Baso # (Auto) 0.01 (0.00-0.20) K/uL Immature Gran # (Auto) 0.00 L (0.01-0.20) K/uL Sodium 136 (136-145) mmol/L Potassium 6.8 H* (3.5-5.1) mmol/L Chloride 110 H (98-107) mmol/L Carbon Dioxide 21 (21-32) mmol/L Anion Gap 5 (3-11) BUN 20 (6-23) mg/dl Creatinine 1.59 H (0.6-1.2) mg/dl Est Cr Clr Drug Dosing Not Reportable Est GFR ( Amer) 39.9 ml/min Est GFR (Non-Af Amer) 34.4 ml/min BUN/Creatinine Ratio 12.6 (10-20) Glucose 224 H (70-99(Fasting)) mg/dl Calcium 9.0 (8.6-10.3) mg/dl Administered Medications Sodium Chloride (Nss) 500 mls @ 125 mls/hr IV .Q4H HYACINTH Stop: 04/19/24 16:29 Last Admin: 04/19/24 12:50 Dose: 125 mls/hr Documented By: AMANDEEP Discontinued Medications Albuterol (Albuterol 0.083% Nebu Soln 3 Ml Vial) 10 mg NEB NOW STA; Protocol Stop: 04/19/24 11:25 Last Admin: 04/19/24 11:44 Dose: 10 mg Documented By: AMANDEEP Dextrose (Dextrose 50% 50 Ml Syringe) 50 ml IV NOW STA Stop: 04/19/24 11:25 Last Admin: 04/19/24 11:44 Dose: 50 ml Documented By: AMANDEEP Calcium Gluconate () 1,000 mg in 60 mls @ 240 mls/hr IV NOW STA Stop: 04/19/24 11:38 Last Infusion: 04/19/24 12:02 Dose: Infused Documented By: Admin: 04/19/24 11:45 Dose: 240 mls/hr Documented By: AMANDEEP Insulin Human Regular 10 units (/ Syringe) 9.9 mls @ 3 mls/sec IV ONE STA Stop: 04/19/24 11:25 Last Admin: 04/19/24 11:47 Dose: 3 mls/sec Documented By: AMANDEEP Co-signed By: ALEXYS Sodium Chloride (Nss) 500 mls @ 999 mls/hr IV .Q31M ONE Stop: 04/19/24 11:54 Last Infusion: 04/19/24 12:38 Dose: Infused Documented By: Admin: 04/19/24 12:01 Dose: 999 mls/hr Documented By: AMANDEEP Calcium Gluconate () 1,000 mg in 60 mls @ 240 mls/hr IV Q1H HYACINTH Stop: 04/19/24 14:14 Last Infusion: 04/19/24 13:06 Dose: Infused Documented By: Admin: 04/19/24 12:48 Dose: 240 mls/hr Documented By: AMANDEEP Magnesium Oxide (Magnesium Oxide 400 Mg Tab) 800 mg PO NOW STA Stop: 04/19/24 10:29 Last Admin: 04/19/24 10:48 Dose: 800 mg Documented By: MES Sodium Zirconium Cyclosilicate (Sodium Zirconium Cyclosilicate 10 Gm Packet) 10 gm PO TID STA Stop: 04/19/24 11:39 Last Admin: 04/19/24 12:05 Dose: 10 gm Documented By: AMANDEEP Discharge Plan Visit Data Chief Complaint: Abnormal Labs/Diagnostic Testing Stated Complaint: REF [facility], HIGH POTASSIUM ED Provider: Matt Tavera Discharge Problem: Acute hyperkalemia, Pancytopenia, History of kidney transplant, Hypomagnesemia Patient Disposition: Admitted As Inpatient Discharge Instructions Interventions: ED Discharge Assessment Last Done: 04/19/24 13:11
[2024-04-19] MEDS: MAGNESIUM OXIDE 400 MG TAB PO STA (10:48)
[2024-04-19 11:07] LABS: Basophils # (auto) 0.01 K/uL (0.00-0.20); Basophils % (auto) 0.3 %; Eosinophils # (auto) 0.14 K/uL (0.00-0.50); Eosinophils % (auto) 4.3 %; Hematocrit (blood only) 29.8 % (37.0-47.0); Hemoglobin 10.2 g/dl (12.0-16.0); Lymphocytes # (auto) 0.92 K/uL (1.20-3.40); Lymphocytes % (auto) 28.4 %; Mean Corpuscular Hemoglobin 31.5 pg (25.0-34.0); Mean Corpuscular Hgb Conc 34.2 g/dL (32.0-36.0); Mean Platelet Volume 11.4 fL (9.4-12.4); Monocytes % (auto) 6.2 %; Neutrophils # (auto) 1.97 K/uL (1.40-6.50); Neutrophils % (auto) 60.8 %; Platelet Count 94 K/uL (130-400); RDW Coefficient of Variation 13.1 % (11.5-14.5); RDW Standard Deviation 43.7 fL (36.4-46.3); Red Blood Count 3.24 M/uL (4.20-5.40); White Blood Count 3.24 K/ul (4.8-10.8)
[2024-04-19 11:24] LABS: Anion Gap 5 (3-11); BUN Creatinine Ratio 12.6 (10-20); Blood Urea Nitrogen 20 mg/dl (6-23); Carbon Dioxide 21 mmol/L (21-32); Chloride 110 mmol/L (98-107); Est GFR (African American) 39.9 ml/min; Est GFR (Non-African American) 34.4 ml/min; Glucose 224 mg/dl (70-99(Fasting)); Potassium 6.8 mmol/L (3.5-5.1); Sodium 136 mmol/L (136-145)
--- NOTE | 2024-04-19 11:29 | History & Physical Report ---
Date of Service April 19, 2024 Assessment & Plan (1) Acute hyperkalemia: Plan: [facility] patient referred to the ED on 04/19 for hypomagnesemia and hyperkalemia K 6.8 on arrival; asymptomatic; patient denies CP/SOB Patient was transitioning from Kayexalate (taken the past week) to Lokelma (last taken on 04/13) Patient was unsure if she should continue the Lokelma, and has not been taking it during the transition Calcium gluconate, Lokelma 10 g, insulin, and dextrose 50% given in the ED Continue Lokelma 10 g p.o. 3 times daily; hold SPS (Kayexalate) for now Nephrology consulted Trend BMP q2h x 2, then q4h Continuous telemetry monitoring A.m. CBC, CMP, Mag (2) Hypomagnesemia: Plan: Mag 1.5 on arrival Magnesium oxide 800 mg p.o. given Trend mag (3) MGUS (monoclonal gammopathy of unknown significance): Plan: Infusion with Dr. Ba at [facility] on 04/19 Continue penicillin V potassium twice daily for chronic suppression; patient was previously on Bactrim, but was switched to penicillin V Despite hyperkalemia, will continue Pen V as there is only a small amount of K in medication (<1.00mEq in 250mg tab) (4) Renal transplant, status post: Plan: Former ESRD on HD; transplant on 11/13/23 Creatinine is around baseline on arrival Follows with Dr. 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 She was referred to the ED while receiving an infusion at [facility] on for hyperkalemia and hypomagnesemia on 04/19. Patient reports she is currently asymptomatic on arrival. Patient reports that she took all of her regular morning medications, however she has not been taking Lokelma this past week, as she is in the process of transitioning to Kayexalate. She also reports she is still taking valganciclovir daily for CMV ppx. Follows with Dr. Ba at [facility]. Patient reports that she is still producing urine. She denies smoking, tobacco use, and alcohol use. Patient is mildly hypertensive at 141/66 at time of admission; mildly bradycardic at 48 bpm; vitals otherwise stable. ED course: Calcium gluconate 1000 mg IV Regular human insulin 10 units IV Dextrose 50% 50 mL IV Albuterol 10 mg neb Lokelma 10 g p.o. Magnesium oxide 800 mg p.o. NSS 500 mL IV ROS: Patient endorses mild headache, and chronic neuropathy in her extremities. Patient denies fever, chills, night sweats, dizziness/lightheadedness, chest pain, chest palpitations, SOB, cough, abdominal pain, N/V/D, change in urinary or bowel habits, burning with urination, or dysuria. Allergies Allergy/AdvReac Type Severity Reaction Status Date / Time Iodinated Contrast Media Allergy Intermediate Sneezing Verified 03/25/24 18:47 and breaks out into a rash doxycycline AdvReac Intermediate Vomiting Verified 03/25/24 18:47 metformin AdvReac Intermediate Gastrointestinal Verified 03/25/24 18:47 Upset Home Medications Medication Instructions Recorded Confirmed Type blood-glucose sensor (Dexcom G7 08/17/23 01/04/24 History Sensor device) insulin lispro 100 unit/mL 1 sliding scale dose subcut 12/11/23 04/19/24 History subcutaneous pen USEASDIRECTD mycophenolate mofetil 250 mg 250 mg PO UD 12/11/23 04/19/24 History capsule (CellCept) pantoprazole 40 mg tablet,delayed 40 mg PO QAM 12/11/23 04/19/24 History release sodium bicarbonate 650 mg tablet 650 mg PO BID #60 tabs 12/25/23 04/19/24 Rx tacrolimus 1 mg capsule, 1 mg PO UD 01/04/24 04/19/24 History immediate-release (Prograf) miscellaneous medical supply #1 L 01/05/24 01/05/24 Rx solifenacin 5 mg tablet (Vesicare) 5 mg PO QAM #90 tabs 03/16/24 04/19/24 Rx penicillin V potassium 250 mg 250 mg PO BID 03/25/24 04/19/24 History tablet sodium polystyrene sulfonate 15 60 ml PO DAILY 04/19/24 04/19/24 History gram-sorbitol 20 gram/60 mL oral susp (SPS (with sorbitol)) valganciclovir 450 mg tablet 900 mg PO DAILY 04/19/24 04/19/24 History Past Med/Surg History Problem List (Updated 04/09/24 @ 00:07 by Background Daemon) Dyspnea Leukopenia (Acute) Acute hyperkalemia (Acute) Thrombotic microangiopathy Renal transplant, status post History of colon polyps History of compression fracture of vertebral column (05/14/22) lumbar vertebra compression fracture History of vertebral fracture (~03/12/19) L1-L3 stress fractures Abnormal CT scan of lung Morbid obesity with BMI of 40.0-44.9, adult Neutropenia Pancytopenia Peripheral edema Diarrhea Proteinuria Ambulatory dysfunction (Acute) Lumbar pain with radiation down both legs Urinary incontinence, urge Diabetes mellitus with neurological manifestations, uncontrolled (Chronic) Diabetes 1.5, managed as type 1 (Chronic) Trigger finger of right hand Trigger finger of left hand Environmental allergies Hx of compression fracture of spine L1 and L4 Low back pain Anemia aplastic aregenerative (Acute) Dyslipidemia (Chronic) Enthesopathy of foot (Chronic) Gastroparesis (Acute) 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) Microscopic hematuria (Acute) Diabetic neuropathy (Chronic) Vitamin D deficiency (Chronic) Osteoarthritis Primary biliary cirrhosis GERD (gastroesophageal reflux disease) Cholestatic pruritus Anemia of chronic disease (Chronic) Plaque psoriasis Hypertension MGUS (monoclonal gammopathy of unknown significance) (Chronic) Osteopenia (Acute) Peripheral neuropathy (Chronic) Liver transplant recipient (Chronic ~10/13/18) [facility] 10/13/18 Bilateral foot-drop (Chronic) 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) Degenerative disc disease, lumbar (Chronic) Medical History Limb alert care status LUE AV fistual Poor venous access frequent infusions Hx of respiratory syncytial virus infection (~12/2023) admitted at [facility] x 5 days, History of COVID-19 (~10/2023) admitted at [facility] x 1 week, resolved DM type 2 (diabetes mellitus, type 2) IDDM Plaque psoriasis Hypertension Bilateral foot-drop MGUS (monoclonal gammopathy of unknown significance) Osteopenia Peripheral neuropathy COPD (chronic obstructive pulmonary disease) Follows Pulmonology in [facility] Osteoarthritis GERD (gastroesophageal reflux disease) Degenerative disc disease, lumbar 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) Surgical History Hx of esophagogastroduodenoscopy Hx of appendectomy Kidney transplant recipient (~11/2023) right side, [facility], follows with Keesha Lopez S/P arteriovenous (AV) graft placement LUE - not currently in use History of lumbar laminectomy for spinal cord decompression (04/22/21) L3-L5 laminectomy Liver transplant recipient (~10/13/18) [facility] 10/13/18 History of total abdominal hysterectomy and bilateral salpingo-oophorectomy History of section X 2 History of colonoscopy History of tooth extraction Nasal polyp X 3 REMOVED History of tonsillectomy Family History Unknown Adopted Social History Smoking Status: Never smoker Second Hand Exposure: No; Do You Dip or Chew Tobacco: No; Hx Alcohol Use: No Hx Substance Use: No Preferred Language: Bur[place]ian Communication Ability: Effective Visual Impairment: No Limitations Hearing Ability: Normal Lead Cook Required: No Beliefs That Will Affect Care: None marital status: Current Living Situation: Spouse Current Living Situation Comment: Lives at home with , son, and daughter current occupational status: employed How many Children do You have: 3 Feels Safe at Home: Yes Childhood Exposure to Second-Hand Smoke: No Diet: low carbohydrate caffeine: Yes during the past year weight has: remained stable Dental Care, Regularly: No Physical Activity Frequency: Daily Seatbelt Use: always Sunscreen Use: No Assistive Devices: Cane, Glasses and Walker Review of Systems Review of Systems: See HPI above Physical Exam Physical Exam: General: no acute distress; pleasant affect; non-toxic appearing; well- nourished; cooperative; SpO2 94% on RA HEENT: normocephalic, atraumatic; no scleral icterus; PERRLA; dry mucus membrane; vision and hearing grossly intact Neck: supple; trachea midline Skin: warm, dry without signs of tenting; no cyanosis; no rashes, bruising, lesions, or erythema noted CV: chest wall NTP; port on right upper chest wall without signs of infection, erythema, or drainage; RRR; S1/S2 normal; no murmurs/rubs/gallops; pulses intact and symmetric at radial, DP, and PT Lungs: no acute respiratory distress; symmetrical chest wall expansion; clear breath sounds across all lung acharya w/o adventitious sounds; no wheezing ABD: Soft, NTP; BS present; no rebound/guarding; no distention MSK: no tics or fasciculations; no edema noted in the LEs b/l, nonerythematous; patient is unable to wiggle toes in her lower extremities bilaterally (braces in place) Neuro: A&Ox3; normal mood and affect; fluent speech; no focal deficits; sensation grossly intact and symmetric in the LEs b/l Results & Data Results & Data Vital Signs (Past 12 Hours) Vital Signs Temp Pulse Pulse Resp BP BP Pulse Ox 04/19/24 10:01 48 L 16 141/66 H 94 04/19/24 09:52 46 L 04/19/24 09:39 36.7 C 47 L 14 142/60 H 99 O2 Del Method 04/19/24 10:01 Room Air 04/19/24 09:52 04/19/24 09:39 Laboratory Results Abnormal lab results 04/19/24 Range/Units 10:35 WBC 3.24 L (4.8-10.8) K/ul RBC 3.24 L (4.20-5.40) M/uL Hgb 10.2 L (12.0-16.0) g/dl Hct 29.8 L (37.0-47.0) % Plt Count 94 L (130-400) K/uL Lymph # (Auto) 0.92 L (1.20-3.40) K/uL Immature Gran # (Auto) 0.00 L (0.01-0.20) K/uL Potassium 6.8 H* (3.5-5.1) mmol/L Chloride 110 H (98-107) mmol/L Creatinine 1.59 H (0.6-1.2) mg/dl Glucose 224 H (70-99(Fasting)) mg/dl ECG Additional Comments: ECG revealed sinus bradycardia with PACs at 48 bpm; QTc 459 Code Status & VTE Plan Code Status Full code VTE Prophylaxis Plan VTE Prophylaxis will be ordered: Yes Supervising Physician Co-Signing Physician Notes Rhona is a 64-year-old female with past medical history of thrombotic microangiopathy undergoing cancer infusions with CCP, s/p renal transplantation status, DM type 1.5 managed as type I, pancytopenia, hypertension. Follows with [facility], and Dr. Bermudez ID. Last [facility] , was switched to Kayexalate for the last few days. Is on PenVK for immunosuppression/meningitis prophylaxis.Non-anuric. L AV fistula with thrill intact. No signs of volume overload, appears euvolemic. Lungs are clear without any rales or crackles. PowerPort in the right chest is intact without overlying erythema or tenderness. presents with creatinine of 1.59, baseline ranging approximately 1.411.76 and hyperkalemia 5.9, on recheck 6.8. BSG 224. Patient has received albuterol, calcium gluconate, 10 units of IV insulin, 500 cc saline, and dextrose at time of consultation. She feels well at time bedside assessment and reports she has no chest pain, chest pressure, fever, chills, sweats. Reports that she switched from Bactrim to Pen-Vee K a while ago for prophylaxis. No night sweats. No syncope or presyncope. She reports that if she was not told her potassium was high she would not know if she feels like she is at her normal baseline. Has a left vascular graft with good thrill, this was last accessed November 2023 after her transplant and she has not needed it since. No overlying warmth/cellulitis/pain. Hyperkalemia Received insulin/dextrose, Lokelma x 1 while in the emergency department Patient is not anuric/oliguric. 500 cc NSS given Lokelma scheduled as 3 times daily, will repeat calcium gluconate every2 hours until potassium is improving due to some QT prolongation, repeat insulin/dextrose and albuterol as needed BMP every 2 hours x 2, then every 4 hours x 2, then every 6 hours if improving. If worsening adjust as needed ESRD s/p renal transplant 11/13/2023 Complicated by thrombotic microangiopathy. Continue tacrolimus, mycophenolate. - Pt has been on Eculizumab tx as outpt. Is on penicillin V for prophylaxis. Reports she was changed a while ago from Bactrim to penicillin V for prop hylaxis, denies any history of recent active infections. Pen-VK at her dose = ~0.7 mEq of potassium total daily, do not recommend holding this as risk outweighs benefits however if her hyperkalemia is severe and all potassium is minimized then could temporarily convert to Rocephin. Type II DM Type 1.5, managed as type I Insulin as noted BSG adequately controlled on admission, she is not in DKA, she is not volume contracted,, and bicarb is normal Hypertension Previously on metoprolol, this was discontinued due to bradycardia. She is asymptomatic with this, she is not hypotensive Chronic stable issues MGUS, pancytopenia, AOCDcontinue CCP follow-up PG Care Time/CCT Total # of Minutes Spent Total Time Spent with Patient: Total time spent is greater than 50% in coordination of care (as documented) at patient's floor/unit and/or counseling patient: C[place] [address] INT INP/OBS CARE 3/75MIN Patient Type Established History Comprehensive Exam Comprehensive Medical Decision Making High Complexity Diagnoses Acute hyperkalemia E87.5 Hypomagnesemia E83.42 MGUS (monoclonal gammopathy of unknown significance) D47.2 Renal transplant, status post Z94.0 Diabetes 1.5, managed as type 1 E13.9 Liver transplant recipient Z94.4 Dyslipidemia E78.5 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
[2024-04-19] MEDS: ALBUTEROL 0.083% NEBU SOLN 3 ML VIAL NEB STA (11:44)
[2024-04-19] MEDS: DEXTROSE 50% 50 ML SYRINGE IV STA (11:44)
[2024-04-19] MEDS: CALCIUM GLUCONATE 1,000 MG/60 ML BAG IV STA (11:45)
[2024-04-19] MEDS: INSULIN HUMAN REGULAR PER UNIT 10 UNITS in SYRINGE 9.9 ML IV STA (11:47)
[2024-04-19] MEDS: SODIUM CHLORIDE 0.9% 500 ML IV ONE (12:01)
[2024-04-19] MEDS: SODIUM ZIRCONIUM CYCLOSILICATE 10 GM PACKET PO STA (12:05)
[2024-04-19] MEDS: CALCIUM GLUCONATE 1,000 MG/60 ML BAG IV SCH (12:48)
[2024-04-19] MEDS: SODIUM CHLORIDE 0.9% 500 ML IV SCH (12:50)
[2024-04-19 13:03] LABS: Anion Gap 5 (3-11); BUN Creatinine Ratio 11.9 (10-20); Blood Urea Nitrogen 19 mg/dl (6-23); Calcium 9.1 mg/dl (8.6-10.3); Carbon Dioxide 20 mmol/L (21-32); Chloride 113 mmol/L (98-107); Est GFR (African American) 39.6 ml/min; Est GFR (Non-African American) 34.2 ml/min; Glucose 188 mg/dl (70-99(Fasting)); Potassium 4.8 mmol/L (3.5-5.1); Sodium 138 mmol/L (136-145)
[2024-04-19] MEDS ORDERED: ACETAMINOPHEN 325 MG TAB PO PRN (14:19)
[2024-04-19] MEDS ORDERED: GLUCOSE 10 TAB/TUBE PO PRN (14:19)
[2024-04-19] MEDS ORDERED: DEXTROSE 50% 50 ML SYRINGE IV PRN (14:19)
[2024-04-19] MEDS ORDERED: PHARMACY GLYCEMIC MGMT CONSULT PRN (14:19)
[2024-04-19] MEDS ORDERED: GLUCAGON FOR INJ 1 MG VIAL SQ PRN (14:19)
[2024-04-19] MEDS ORDERED: Patient's HEIGHT &/or WEIGHT Needed SCH (14:45)
--- NOTE | 2024-04-19 15:05 | Pharmacy Report ---
Pharmacy Glycemic Short Note 2 - Date of Service April 19, 2024 - Glycemic Short BSG Results (Last 24 hours): 04/19/24 04/19/24 04/19/24 10:35 12:29 12:33 Glucose 224 H 188 H POC Glucose 212 H OUTPATIENT ANTIDIABETIC REGIMEN: * Insulin lispro sliding scale ASSESSMENT: * Patient admitted for hyperkalemia, was given 10 units of IV regular insulin along with an amp of D50 for hyperK in ED * BSGs 183-212 mg/dL, ordered type 1 DM diet. * T2DM listed in PMH but also records of possible type 1.5, management as type 1. * Reviewed previous admission from December, patient was on novolog weight based stress of 2, which seems reasonable to restart at this time. * Will set scale for low lantus dose- monitor need going forward PLAN FOR INPATIENT GLYCEMIC CONTROL: * Hold outpatient oral diabetes medications * Basal insulin * Lantus 0/6 units SQ HS * Bolus insulin * NovoLog per scale ACHS or Q6hrs while NPO * Goal Range: Low 110 mg/dL - High 140 mg/dL * Correction Factor: 35 mg/dL/unit * Nutritional / Prandial insulin per carb ratio of 1 unit per 11 grams CHO consumed
--- NOTE | 2024-04-19 16:25 | Electrocardiogram Report ---
Test Reason : Blood Pressure : / mmHG Vent. Rate : 048 BPM Atrial Rate : 048 BPM P-R Int : 152 ms QRS Dur : 092 ms QT Int : 514 ms P-R-T Axes : 050 -44 039 degrees QTc Int : 459 ms Sinus bradycardia with Premature atrial complexes Left axis deviation Cannot rule out Anterior infarct , age undetermined Abnormal ECG When compared with ECG of 01-MAR-2024 17:43, Premature atrial complexes are now Present Confirmed by William Carter ([id number]) on 04/19/2024 4:25:14 PM Referred By: REFERRED SELF Confirmed By:William Carter
[2024-04-19 16:50] LABS: BUN Creatinine Ratio 12.8 (10-20); Calcium 9.4 mg/dl (8.6-10.3); Creatinine Clr Calc Pharmacy 32.8 ml/min; Est GFR (African American) 43.5 ml/min; Est GFR (Non-African American) 37.6 ml/min; Magnesium 1.4 mg/dl (1.7-2.4)
[2024-04-19] MEDS: INSULIN ASPART PER UNIT CHARGE SC SCH (17:24)
--- NOTE | 2024-04-19 17:57 | Nephrology Consultation ---
Date of Consultation April 19, 2024 Assessment & Plan (1) Hyperkalemia: No acute EKG changes. Calcium gluconate has been provided. Potassium improved with Lokelma and insulin therapy. Remains on low potassium diet. Continue oral NaHCO3 as Rx. Continue Lokelma. Patient does not appear to have tolerated transition to SPS well. (2) Renal transplant, status post: Tacrolimus and Myfortic should be continued as Rx. Creatinine appears stable. Monitor serial BMP as ordered. Document strict I/O's. 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 Medical history is notable for chronic TMA associated with CNI therapy managed with Eculizumab as well as a monoclonal gammopathy of undetermined significance. Rhona has diabetes mellitus with type 1 physiology. She has a notable history of OA/DDD and spinal stenosis with a history of lillian ectomy in the past. Rhona was maintained on hemodialysis at [facility] under the care of Dr. Acosta prior to her recent transplant. She has a left upper extremity AVG which was placed by Dr. Cano. Transplant was performed at [facility]. The transplant was reportedly complicated by delayed graft function. Rhona received 2 HD treatments while inpatient and a 3rd treatment as an outpatient within 1 week of discharge. She is maintained on tacrolimus and mycophenolate mofetil for IS. Baseline creatinine post-transplant has been ~1.5 mg/dL. Chronic hyperkalemia and NAGMA are managed with maintenance Lokelma and NaHCO3. Dr. Ba recently prescribed SPS and Rhona stopped Lokelma ~1 week ago. She did not understand the instructions for taking SPS. She was referred to the ED from the [facility] for hyperkalemia. Thankfully, no concerning EKG changes were noted. Rhona denies symptoms. I discussed the plan of care with Dr. Tavera earlier today. Hyperkalemia has been treated with Lokelma. Allergies Allergy/AdvReac Type Severity Reaction Status Date / Time Iodinated Contrast Media Allergy Intermediate Sneezing Verified 03/25/24 18:47 and breaks out into a rash doxycycline AdvReac Intermediate Vomiting Verified 03/25/24 18:47 metformin AdvReac Intermediate Gastrointestinal Verified 03/25/24 18:47 Upset Home Medications Medication Instructions Recorded Confirmed Type blood-glucose sensor (Dexcom G7 08/17/23 01/04/24 History Sensor device) insulin lispro 100 unit/mL 1 sliding scale dose subcut 12/11/23 04/19/24 History subcutaneous pen USEASDIRECTD mycophenolate mofetil 250 mg 250 mg PO UD 12/11/23 04/19/24 History capsule (CellCept) pantoprazole 40 mg tablet,delayed 40 mg PO QAM 12/11/23 04/19/24 History release sodium bicarbonate 650 mg tablet 650 mg PO BID #60 tabs 12/25/23 04/19/24 Rx tacrolimus 1 mg capsule, 1 mg PO UD 01/04/24 04/19/24 History immediate-release (Prograf) miscellaneous medical supply #1 L 01/05/24 01/05/24 Rx solifenacin 5 mg tablet (Vesicare) 5 mg PO QAM #90 tabs 03/16/24 04/19/24 Rx penicillin V potassium 250 mg 250 mg PO BID 03/25/24 04/19/24 History tablet sodium polystyrene sulfonate 15 60 ml PO DAILY 04/19/24 04/19/24 History gram-sorbitol 20 gram/60 mL oral susp (SPS (with sorbitol)) valganciclovir 450 mg tablet 900 mg PO DAILY 04/19/24 04/19/24 History Patient History Medical History Limb alert care status LUE AV fistual Poor venous access frequent infusions Hx of respiratory syncytial virus infection (~12/2023) admitted at [facility] x 5 days, History of COVID-19 (~10/2023) admitted at [facility] x 1 week, resolved DM type 2 (diabetes mellitus, type 2) IDDM COPD (chronic obstructive pulmonary disease) Follows Pulmonology in [facility] GERD (gastroesophageal reflux disease) Surgical History Hx of esophagogastroduodenoscopy Hx of appendectomy Kidney transplant recipient (~11/2023) right side, [facility], follows with Keesha Lopez S/P arteriovenous (AV) graft placement LUE - not currently in use History of lumbar laminectomy for spinal cord decompression (04/22/21) L3-L5 laminectomy History of total abdominal hysterectomy and bilateral salpingo-oophorectomy History of section X 2 History of colonoscopy History of tooth extraction Nasal polyp X 3 REMOVED History of tonsillectomy Family History Unknown Adopted Social History Smoking Status: Never smoker Second Hand Exposure: No; Do You Dip or Chew Tobacco: No; Hx Alcohol Use: No Hx Substance Use: No Preferred Language: Azeri Communication Ability: Effective Visual Impairment: No Limitations Hearing Ability: Normal Telephone Lines Repairer Required: Yes Beliefs That Will Affect Care: None marital status: Current Living Situation: Spouse Current Living Situation Comment: Lives at home with , son, and daughter current occupational status: employed How many Children do You have: 3 Other Information That Helps Us Care for You: No Feels Safe at Home: Yes Safety Concerns: Feels Safe At This Time Childhood Exposure to Second-Hand Smoke: No Diet: low carbohydrate caffeine: Yes during the past year weight has: remained stable Dental Care, Regularly: No Physical Activity Frequency: Daily Seatbelt Use: always Sunscreen Use: No Assistive Devices: Cane Review of Systems Review of Systems: All systems reviewed & are unremarkable except as noted in HPI & below Physical Exam Constitutional: well developed; no acute distress Eyes: no scleral abnormality and no corneal abnormality ENMT: Mouth: no oral mucosal abnormality and oral mucous membranes not dry Neck: normal visual inspection and trachea midline Respiratory: normal respiratory effort Auscultation: lungs clear to auscultation bilaterally Cardiovascular: Rate/Rhythm: regular rate Heart Sounds: normal S1, normal S2 and + murmur Extremities: + AV fistula (LUE AVG); no edema Gastrointestinal (Abdomen): RLQ surgical incision well healed with elsy intact. No erythema. No tenderness. No bruit. Musculoskeletal: Extremities: no cyanosis and no clubbing Skin: no jaundice Neurologic: Motor/Sensory: no tremor and no asterixis Psychiatric: Orientation: alert and oriented x 3 Results & Data Vital Signs (Past 12 Hours) Vital Signs Temp Pulse Pulse Resp BP BP Pulse Ox 04/19/24 14:27 36.3 C L 90 18 151/67 H 96 04/19/24 13:00 97 H 18 133/66 99 04/19/24 12:00 58 L 16 141/66 H 99 04/19/24 10:01 48 L 16 141/66 H 94 04/19/24 09:52 46 L 04/19/24 09:39 36.7 C 47 L 14 142/60 H 99 O2 Del Method 04/19/24 14:27 Room Air 04/19/24 13:00 Room Air 04/19/24 12:00 Room Air 04/19/24 10:01 Room Air 04/19/24 09:52 04/19/24 09:39 Laboratory Results Laboratory Results - last 24 hr 04/19/24 04/19/24 04/19/24 10:35 12:29 12:33 WBC 3.24 L RBC 3.24 L Hgb 10.2 L Hct 29.8 L MCV 92.0 MCH 31.5 MCHC 34.2 RDW Std Deviation 43.7 RDW Coeff of Paty 13.1 Plt Count 94 L MPV 11.4 Immature Gran % (Auto) 0.0 Neut % (Auto) 60.8 Lymph % (Auto) 28.4 [place] % (Auto) 6.2 Eos % (Auto) 4.3 Baso % (Auto) 0.3 Neut # (Auto) 1.97 Lymph # (Auto) 0.92 L [place] # (Auto) 0.20 Eos # (Auto) 0.14 Baso # (Auto) 0.01 Immature Gran # (Auto) 0.00 L Sodium 136 138 Potassium 6.8 H* 4.8 D Chloride 110 H 113 H Carbon Dioxide 21 20 L Anion Gap 5 5 BUN 20 19 Creatinine 1.59 H 1.60 H Est Cr Clr Drug Dosing Not Reportable Not Reportable Est GFR ( Amer) 39.9 39.6 Est GFR (Non-Af Amer) 34.4 34.2 BUN/Creatinine Ratio 12.6 11.9 Glucose 224 H 188 H POC Glucose 212 H Calcium 9.0 9.1 Magnesium Nasal Screen MRSA (PCR) Mycophenolic Acid Pending MPA Glucuronide Pending 04/19/24 04/19/24 04/19/24 16:02 16:16 Unknown WBC RBC Hgb Hct MCV MCH MCHC RDW Std Deviation RDW Coeff of Paty Plt Count MPV Immature Gran % (Auto) Neut % (Auto) Lymph % (Auto) [place] % (Auto) Eos % (Auto) Baso % (Auto) Neut # (Auto) Lymph # (Auto) [place] # (Auto) Eos # (Auto) Baso # (Auto) Immature Gran # (Auto) Sodium 140 Potassium 5.0 Chloride 113 H Carbon Dioxide 18 L Anion Gap 9 BUN 19 Creatinine 1.48 H Est Cr Clr Drug Dosing 32.8 Est GFR ( Amer) 43.5 Est GFR (Non-Af Amer) 37.6 BUN/Creatinine Ratio 12.8 Glucose 148 H POC Glucose 129 H Calcium 9.4 Magnesium 1.4 L Nasal Screen MRSA (PCR) Negative Mycophenolic Acid MPA Glucuronide ECG Additional Comments: Sinus bradycardia with Premature atrial complexes Left axis deviation Cannot rule out Anterior infarct, age undetermined PG Care Time/CCT Total # of Minutes Spent Total Time Spent with Patient: Total time spent is greater than 50% in coordination of care (as documented) at patient's floor/unit and/or counseling patient: Coding Level of Care Code 01332 IN/OBS CONSULT LVL 4,60M Diagnoses Hyperkalemia E87.5 Renal transplant, status post Z94.0 Liver transplant recipient Z94.4 Thrombotic microangiopathy M31.10
[2024-04-19] MEDS: MAGNESIUM SULFATE / D5W 1 GM/100 ML BAG IV ONE ×2 (19:33→22:00)
[2024-04-19] MEDS: LANTUS PER UNIT CHARGE SC ONE (20:54)
[2024-04-19] MEDS: SODIUM ZIRCONIUM CYCLOSILICATE 10 GM PACKET PO SCH (20:55)
[2024-04-19] MEDS: TACROLIMUS 1 MG CAP PO SCH (20:55)
[2024-04-19] MEDS: SODIUM BICARBONATE 650 MG TAB PO SCH (20:56)
[2024-04-19] MEDS: MYCOPHENOLATE SODIUM 180 MG TAB PO SCH (20:57)
[2024-04-19] MEDS ORDERED: PENICILLIN V POTASSIUM 250 MG TAB PO SCH (21:00)
[2024-04-19 21:15] LABS: BUN Creatinine Ratio 12.4 (10-20); Calcium 8.9 mg/dl (8.6-10.3); Creatinine Clr Calc Pharmacy 27.3 ml/min; Est GFR (African American) 34.8 ml/min; Potassium 5.5 mmol/L (3.5-5.1)
[2024-04-19] MEDS: PENICILLIN V POTASSIUM 500 MG TAB PO SCH (22:25)
[2024-04-20] MEDS: INSULIN ASPART PER UNIT CHARGE SC SCH (00:04)
[2024-04-20] MEDS: MELATONIN 3 MG TAB PO PRN (01:53)
[2024-04-20 05:09] LABS: Eosinophils # (auto) 0.03 K/uL (0.00-0.50); Eosinophils % (auto) 1.3 %; Hematocrit (blood only) 24.8 % (37.0-47.0); Hemoglobin 8.4 g/dl (12.0-16.0); Lymphocytes % (auto) 20.8 %; Mean Corpuscular Hemoglobin 31.9 pg (25.0-34.0); Mean Corpuscular Hgb Conc 33.9 g/dL (32.0-36.0); Mean Corpuscular Volume 94.3 fL (80.0-100.0); Mean Platelet Volume 11.2 fL (9.4-12.4); Monocytes % (auto) 8.3 %; Neutrophils # (auto) 1.67 K/uL (1.40-6.50); Neutrophils % (auto) 69.6 %; Platelet Count 75 K/uL (130-400); RDW Coefficient of Variation 13.3 % (11.5-14.5); RDW Standard Deviation 45.1 fL (36.4-46.3); Red Blood Count 2.63 M/uL (4.20-5.40)
[2024-04-20 05:28] LABS: Albumin Globulin Ratio 1.5 (0.9-2); Albumin Level 3.1 gm/dl (3.4-5.0); BUN Creatinine Ratio 13.5 (10-20); Bilirubin,Total 0.7 mg/dl (0.2-1.0); Calcium 8.6 mg/dl (8.6-10.3); Creatinine Clr Calc Pharmacy 26.2 ml/min; Est GFR (African American) 33.2 ml/min; Est GFR (Non-African American) 28.7 ml/min; Globulin 2.1 gm/dl (2.5-4.0); Potassium 5.3 mmol/L (3.5-5.1); Total Protein 5.2 gm/dl (6.0-8.3)
[2024-04-20 07:10] LABS: Estimated Average Glucose 223 mg/dl; Hemoglobin A1C 9.4 % (4.5-5.6)
[2024-04-20] MEDS: OXYBUTYNIN CHLORIDE XL 5 MG TABCR PO SCH (07:49)
[2024-04-20] MEDS: PANTOprazole 40 MG TAB PO SCH (07:50)
[2024-04-20] MEDS: TACROLIMUS 1 MG CAP PO SCH (07:52)
[2024-04-20] MEDS: PROPOFOL IV EMULSION 10 MG/ML 100 ML VIAL IV ONE (08:12)
[2024-04-20] MEDS: fentaNYL citrate 2,500 MCG/250 ML BAG IV ONE (08:12)
--- NOTE | 2024-04-20 11:46 | Pharmacy Report ---
Pharmacy Glycemic Short Note 2 - Date of Service April 20, 2024 - Glycemic Short BSG Results (Last 24 hours): 04/19/24 04/19/24 04/19/24 12:29 12:33 16:02 Glucose 188 H POC Glucose 212 H 129 H 04/19/24 04/19/24 04/19/24 16:16 20:28 20:41 Glucose 148 H 257 H POC Glucose 246 H 04/19/24 04/20/24 04/20/24 23:56 04:26 04:48 Glucose 164 H POC Glucose 229 H 162 H 04/20/24 04/20/24 07:10 11:05 Glucose POC Glucose 134 H 194 H OUTPATIENT ANTIDIABETIC REGIMEN: * Insulin lispro sliding scale * HbA1c: 9.4% (04/20/24) ASSESSMENT: 04/20: * Rhona received 15 units of insulin yesterday, 6 basal + 9 bolus. BSGs were 093-212-113-246 mg/dL. * Fasting BSG was 134 mg/dL this AM. Patient is tolerating diet better today. Will change basal scale to provide 0, 5 or 10 units of basal tonight per BSG. * Novolog was tightened at lunchtime for BSG of 194 mg/dL to reflect weight/stress of 3. A1c returned well above goal range. 04/19: * Patient admitted for hyperkalemia, was given 10 units of IV regular insulin along with an amp of D50 for hyperK in ED * BSGs 183-212 mg/dL, ordered type 1 DM diet. * T2DM listed in PMH but also records of possible type 1.5, management as type 1. * Reviewed previous admission from December, patient was on novolog weight based stress of 2, which seems reasonable to restart at this time. * Will set scale for low lantus dose- monitor need going forward PLAN FOR INPATIENT GLYCEMIC CONTROL: * Basal insulin * Lantus 0-5-10 units SC HS (see EHR for more details) * Bolus insulin * NovoLog per scale ACHS or Q6hrs while NPO * Goal Range: Low 110 mg/dL - High 140 mg/dL * Correction Factor: 25 mg/dL/unit * Nutritional / Prandial insulin per carb ratio of 1 unit per 8 grams CHO consumed
--- NOTE | 2024-04-20 11:57 | Hospitalist Progress Note ---
Date of Service April 20, 2024 Assessment & Plan (1) Acute hyperkalemia: Plan: [facility] patient referred to the ED on 04/19 for hypomagnesemia and hyperkalemia K 6.8 on arrival; asymptomatic; patient denies CP/SOB Patient was transitioning from Kayexalate (taken the past week) to Lokelma (last taken on 04/13) Calcium gluconate, Lokelma 10 g, insulin, and dextrose 50% given in the ED Continue Lokelma 10 g p.o. 3 times daily; hold SPS (Kayexalate) for now Nephrology consulted Serum Potassium 5.3 this morning Patient would like to be discharged, will repeat serum K by noon, if normal will discharge (2) Hypomagnesemia: Plan: Mag 1.5 on arrival Magnesium oxide 800 mg p.o. given Trend mag (3) MGUS (monoclonal gammopathy of unknown significance): Plan: Infusion with Dr. Ba at [facility] on 04/19 Continue penicillin V potassium twice daily for chronic suppression; patient was previously on Bactrim, but was switched to penicillin V Despite hyperkalemia, will continue Pen V as there is only a small amount of K in medication (<1.00mEq in 250mg tab) (4) Renal transplant, status post: Plan: Former ESRD on HD; transplant on 11/13/23 Creatinine is around baseline on arrival Follows with Dr. Acosta (Nephrology; [place]) LUE graft; no BP, IV, or labs in LUE Continue tacrolimus, valganciclovir, and CellCept Tacrolimus level ordered, pending Mycophenolate level ordered, pending CMV panel ordered, pending (5) Diabetes 1.5, managed as type 1: Plan: Last A1c at 6.2% on 10/06/2023 Glucose elevated at 224 on admission Patient is normally on sliding scale insulin at home; [facility] BSG ACHS Adjust regimen as needed Pharmacy glycemic consult AM A1c (6) Liver transplant recipient: Plan: In [facility] (10/13/18) (7) Dyslipidemia: (8) 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 Physical Exam Physical Exam: The patient is awake, alert and oriented 3, well developed and well nourished, normocephalic and atraumatic, lying in bed and in no acute distress. HEENT--PERRL, EOMI, mucous membranes and oropharynx mildly dry Neck--supple. No JVD. No bruits. Thyroid normal, trachea midline, no adenopathy. Heart--normal S1 and S2. No murmurs, rubs or gallops. Lungs--clear bilaterally, no respiratory distress, no accessory muscle use. Abdomen--normal bowel sounds and soft. Extremities--no cyanosis or clubbing. No edema. Dermatologic--normal skin turgor, normal color, no abnormal lymph nodes, no rash. Neurologic--cranial nerves II through XII grossly intact. Rheumatologic--normal range of motion. Psychiatric--normal affect. Results & Data Results & Data Vital Signs (Past 12 Hours) Vital Signs Temp Pulse Pulse Resp BP BP Pulse Ox 04/20/24 08:00 04/20/24 08:00 62 04/20/24 07:27 98.2 F 64 16 127/71 96 04/20/24 04:00 97.9 F 66 18 114/47 L 96 04/20/24 02:09 65 18 04/20/24 01:00 67 22 04/20/24 00:21 71 20 04/20/24 00:00 71 04/19/24 23:57 98.2 F 140/65 O2 Del Method 04/20/24 08:00 Room Air 04/20/24 08:00 04/20/24 07:27 Room Air 04/20/24 04:00 Room Air 04/20/24 02:09 04/20/24 01:00 04/20/24 00:21 04/20/24 00:00 04/19/24 23:57 PG Care Time/CCT Total # of Minutes Spent Total Time Spent with Patient: Total time spent is greater than 50% in coordination of care (as documented) at patient's floor/unit and/or counseling patient: Coding Level of Care Code 68051 SUB INP/OBS CARE 235MIN Diagnoses Acute hyperkalemia E87.5 Hypomagnesemia E83.42 MGUS (monoclonal gammopathy of unknown significance) D47.2 Renal transplant, status post Z94.0 Diabetes 1.5, managed as type 1 E13.9 Liver transplant recipient Z94.4 Dyslipidemia E78.5 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
--- NOTE | 2024-04-20 11:58 | Nephrology Progress Note ---
Date of Service April 20, 2024 Assessment & Plan (1) Hyperkalemia: Plan: I discussed the patient's history and plan of care with her photography coordinator this morning. Hyperkalemia has been a chronic issue for the patient. This was recently exacerbated when she stopped taking Lokelma and started taking SPS. She is educated on low potassium diet (though admits to some recent dietary indiscretion). I also suspect that Pen VK recent started by her manager sql for meningococcal prophylaxis is contributing. Today, I advised Rhona that we will plan to treat medically with NaHCO3 1300 mg BID (previously taking 650 mg BID at home) and Lokelma 10 grams BID. If potassium remains acceptable, I think it would be reasonable to discharge home later today. I have reached out to Dr. Ba to see if there are alternative options to Pen VK. Rhona will have labs updated next week for transplant. Please make sure that she has a repeat metabolic profile at that time. The importance of blood glucose control for helping to manage hyperkalemia was discussed. (2) Renal transplant, status post: Plan: Tacrolimus and Myfortic should be continued as Rx. Creatinine is stable. Weekly labs per transplant. (3) Liver transplant recipient: (4) Thrombotic microangiopathy: Plan: Maintained on Eculizumab Q 2 weeks. I would be interested in alternative options to Pen VK for prophylaxis given propensity to hyperkalemia. Admission and Anticipated Discharge Date Admission Date: April 19, 2024 Subjective No acute events overnight. Rhona was resting comfortably this morning. She feels well. No fluid retention or edema. She hopes to be discharged home soon. Review of Systems Review of Systems: All systems reviewed & are unremarkable except as noted in HPI & below Physical Exam Constitutional: well developed; no acute distress Eyes: no scleral abnormality and no corneal abnormality ENMT: Mouth: no oral mucosal abnormality and oral mucous membranes not dry Neck: normal visual inspection and trachea midline Respiratory: normal respiratory effort Auscultation: lungs clear to auscultation bilaterally Cardiovascular: Rate/Rhythm: regular rate Heart Sounds: normal S1, normal S2 and + murmur Extremities: + AV fistula (LUE AVG); no edema Musculoskeletal: Extremities: no cyanosis and no clubbing Skin: no jaundice Neurologic: Motor/Sensory: no tremor and no asterixis Psychiatric: Orientation: alert and oriented x 3 Results & Data Vital Signs (Past 12 Hours) Vital Signs Temp Pulse Pulse Resp BP BP Pulse Ox 04/20/24 08:00 04/20/24 08:00 62 04/20/24 07:27 36.8 C 64 16 127/71 96 04/20/24 04:00 36.6 C 66 18 114/47 L 96 04/20/24 02:09 65 18 04/20/24 01:00 67 22 04/20/24 00:21 71 20 04/20/24 00:00 71 04/19/24 23:57 36.8 C 140/65 O2 Del Method 04/20/24 08:00 Room Air 04/20/24 08:00 04/20/24 07:27 Room Air 04/20/24 04:00 Room Air 04/20/24 02:09 04/20/24 01:00 04/20/24 00:21 04/20/24 00:00 04/19/24 23:57 Laboratory Results Laboratory Results - last 24 hr 04/19/24 04/19/24 04/19/24 12:29 12:33 16:02 WBC RBC Hgb Hct MCV MCH MCHC RDW Std Deviation RDW Coeff of Paty Plt Count MPV Immature Gran % (Auto) Neut % (Auto) Lymph % (Auto) [place] % (Auto) Eos % (Auto) Baso % (Auto) Neut # (Auto) Lymph # (Auto) [place] # (Auto) Eos # (Auto) Baso # (Auto) Immature Gran # (Auto) Sodium 138 Potassium 4.8 D Chloride 113 H Carbon Dioxide 20 L Anion Gap 5 BUN 19 Creatinine 1.60 H Est Cr Clr Drug Dosing Not Reportable Est GFR ( Amer) 39.6 Est GFR (Non-Af Amer) 34.2 BUN/Creatinine Ratio 11.9 Glucose 188 H POC Glucose 212 H 129 H Estimat Average Glucose Hemoglobin A1c Calcium 9.1 Magnesium Total Bilirubin AST ALT Alkaline Phosphatase Total Protein Albumin Globulin Albumin/Globulin Ratio Nasal Screen MRSA (PCR) Mycophenolic Acid Pending MPA Glucuronide Pending 04/19/24 04/19/24 04/19/24 16:16 20:28 20:41 WBC RBC Hgb Hct MCV MCH MCHC RDW Std Deviation RDW Coeff of Paty Plt Count MPV Immature Gran % (Auto) Neut % (Auto) Lymph % (Auto) [place] % (Auto) Eos % (Auto) Baso % (Auto) Neut # (Auto) Lymph # (Auto) [place] # (Auto) Eos # (Auto) Baso # (Auto) Immature Gran # (Auto) Sodium 140 136 Potassium 5.0 5.5 H Chloride 113 H 111 H Carbon Dioxide 18 L 17 L Anion Gap 9 8 BUN 19 22 Creatinine 1.48 H 1.78 H D Est Cr Clr Drug Dosing 32.8 27.3 Est GFR ( Amer) 43.5 34.8 Est GFR (Non-Af Amer) 37.6 30.0 BUN/Creatinine Ratio 12.8 12.4 Glucose 148 H 257 H POC Glucose 246 H Estimat Average Glucose Hemoglobin A1c Calcium 9.4 8.9 Magnesium 1.4 L Total Bilirubin AST ALT Alkaline Phosphatase Total Protein Albumin Globulin Albumin/Globulin Ratio Nasal Screen MRSA (PCR) Mycophenolic Acid MPA Glucuronide 04/19/24 04/19/24 04/20/24 23:56 Unknown 04:26 WBC RBC Hgb Hct MCV MCH MCHC RDW Std Deviation RDW Coeff of Paty Plt Count MPV Immature Gran % (Auto) Neut % (Auto) Lymph % (Auto) [place] % (Auto) Eos % (Auto) Baso % (Auto) Neut # (Auto) Lymph # (Auto) [place] # (Auto) Eos # (Auto) Baso # (Auto) Immature Gran # (Auto) Sodium Potassium Chloride Carbon Dioxide Anion Gap BUN Creatinine Est Cr Clr Drug Dosing Est GFR ( Amer) Est GFR (Non-Af Amer) BUN/Creatinine Ratio Glucose POC Glucose 229 H 162 H Estimat Average Glucose Hemoglobin A1c Calcium Magnesium Total Bilirubin AST ALT Alkaline Phosphatase Total Protein Albumin Globulin Albumin/Globulin Ratio Nasal Screen MRSA (PCR) Negative Mycophenolic Acid MPA Glucuronide 04/20/24 04/20/24 04/20/24 04:48 07:10 11:05 WBC 2.40 L RBC 2.63 L Hgb 8.4 L Hct 24.8 L MCV 94.3 MCH 31.9 MCHC 33.9 RDW Std Deviation 45.1 RDW Coeff of Paty 13.3 Plt Count 75 L MPV 11.2 Immature Gran % (Auto) 0.0 Neut % (Auto) 69.6 Lymph % (Auto) 20.8 [place] % (Auto) 8.3 Eos % (Auto) 1.3 Baso % (Auto) 0.0 Neut # (Auto) 1.67 Lymph # (Auto) 0.50 L [place] # (Auto) 0.20 Eos # (Auto) 0.03 Baso # (Auto) 0.00 Immature Gran # (Auto) 0.00 L Sodium 137 Potassium 5.3 H Chloride 111 H Carbon Dioxide 20 L Anion Gap 6 BUN 25 H Creatinine 1.85 H Est Cr Clr Drug Dosing 26.2 Est GFR ( Amer) 33.2 Est GFR (Non-Af Amer) 28.7 BUN/Creatinine Ratio 13.5 Glucose 164 H POC Glucose 134 H 194 H Estimat Average Glucose 223 Hemoglobin A1c 9.4 H Calcium 8.6 Magnesium 2.0 Total Bilirubin 0.7 AST 13 ALT 10 Alkaline Phosphatase 71 Total Protein 5.2 L Albumin 3.1 L Globulin 2.1 L Albumin/Globulin Ratio 1.5 Nasal Screen MRSA (PCR) Mycophenolic Acid MPA Glucuronide PG Care Time/CCT Total # of Minutes Spent Total Time Spent with Patient: Total time spent is greater than 50% in coordination of care (as documented) at patient's floor/unit and/or counseling patient: Coding Level of Care Code 24054 SUB INP/OBS CARE 3/50MIN Diagnoses Hyperkalemia E87.5 Renal transplant, status post Z94.0 Liver transplant recipient Z94.4 Thrombotic microangiopathy M31.10
[2024-04-20] MEDS: CARBOHYDRATES FOR HYPOGLYCEMIA PO PRN (15:28)
[2024-04-20] MEDS: GLUCOSE 40% GEL 15 GM TUBE PO PRN (15:42)
--- NOTE | 2024-04-20 16:03 | Discharge Summary ---
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 She was referred to the ED while receiving an infusion at [facility] on for hyperkalemia and hypomagnesemia on 04/19. Patient reports she is currently asymptomatic on arrival. Patient reports that she took all of her regular morning medications, however she has not been taking Lokelma this past week, as she is in the process of transitioning to Kayexalate. She also reports she is still taking valganciclovir daily for CMV ppx. Follows with Dr. Ba at [facility]. Patient reports that she is still producing urine. She denies smoking, tobacco use, and alcohol use. Patient is mildly hypertensive at 141/66 at time of admission; mildly bradycardic at 48 bpm; vitals otherwise stable. ED course: Calcium gluconate 1000 mg IV Regular human insulin 10 units IV Dextrose 50% 50 mL IV Albuterol 10 mg neb Lokelma 10 g p.o. Magnesium oxide 800 mg p.o. NSS 500 mL IV ROS: Patient endorses mild headache, and chronic neuropathy in her extremities. Patient denies fever, chills, night sweats, dizziness/lightheadedness, chest pain, chest palpitations, SOB, cough, abdominal pain, N/V/D, change in urinary or bowel habits, burning with urination, or dysuria. Principal Diagnosis hyperkalemia Discharge Exam The patient is awake, alert and oriented 3, well developed and well nourished, normocephalic and atraumatic, lying in bed and in no acute distress. HEENT--PERRL, EOMI, mucous membranes and oropharynx mildly dry Neck--supple. No JVD. No bruits. Thyroid normal, trachea midline, no adenopathy. Heart--normal S1 and S2. No murmurs, rubs or gallops. Lungs--clear bilaterally, no respiratory distress, no accessory muscle use. Abdomen--normal bowel sounds and soft. Extremities--no cyanosis or clubbing. No edema. Dermatologic--normal skin turgor, normal color, no abnormal lymph nodes, no rash. Neurologic--cranial nerves II through XII grossly intact. Rheumatologic--normal range of motion. Psychiatric--normal affect. Discharge Data Allergies Allergy/AdvReac Type Severity Reaction Status Date / Time Iodinated Contrast Media Allergy Intermediate Sneezing Verified 03/25/24 18:47 and breaks out into a rash doxycycline AdvReac Intermediate Vomiting Verified 03/25/24 18:47 metformin AdvReac Intermediate Gastrointestinal Verified 03/25/24 18:47 Upset Consultations 04/19/24 11:39 ED Decision to Admit Stat 04/19/24 14:19 Consult Nephrology Routine Hospital Course (1) Acute hyperkalemia: [facility] patient referred to the ED on 04/19 for hypomagnesemia and hyperkalemia K 6.8 on arrival; asymptomatic; patient denies CP/SOB Patient was transitioning from Kayexalate (taken the past week) to Lokelma (last taken on 04/13) Calcium gluconate, Lokelma 10 g, insulin, and dextrose 50% given in the ED Continue Lokelma 10 g p.o. 3 times daily; hold SPS (Kayexalate) for now Nephrology consulted Serum Potassium 5.3 this morning Patient would like to be discharged, will repeat serum K by noon, if normal will discharge Discharge home on Lokelma 10mg BID, Sodium Bicarbonate 1300mg BID and replace Penicillin V potassium with Amoxicillin 250mg BID (2) Hypomagnesemia: Mag 1.5 on arrival Magnesium oxide 800 mg p.o. given Trend mag (3) MGUS (monoclonal gammopathy of unknown significance): Infusion with Dr. 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): (9) Pancytopenia: Plan Disposition: hopefully d/c in the next 24 hrs Full code Dialysis renal, T1DM, low potassium diet VTE PPx: SCDs (low platelets / pancytopenia) Total Time Total Time Spent Total Time Spent (In Minutes): 35 Discharge Plan Discharge Items Patient Disposition: Home - Self-Care Reason For Visit: hyperK,hypomag Discharge Diagnosis: hyperkalemia Activity: Resume your previous activity Non-emergency contact: Primary Care Provider and Sleeve Setter Call non-emergency contact if: you have any medication questions Follow-up/Referrals: She Davis DO [Primary Care Provider] - Diet: Low Potassium (2gm) Ambulatory Orders: Comprehensive Metabolic Panel (Routine) Timeframe: 3 Days Location: Determined by Patient Ordered By: Lei Younger Attending Provider Instructions: please make appointment to follow up with your wood cabinetmaker Pending Studies at Discharge: No Stand-Alone Forms: My [facility] [place], Smoking Cessation Medications and DC Order Prescriptions: New sodium bicarbonate 650 mg Tablet 1,300 mg PO BID 30 Days Qty: 120 0RF Lokelma 10 gram Powder In Packet 10 g PO BID 30 Days Qty: 30 0RF amoxicillin 250 mg capsule 250 mg PO BID 30 Days Qty: 60 0RF Continued solifenacin [Vesicare] 5 mg tablet 5 mg PO QAM Qty: 90 2RF (DME) Dexcom G7 Sensor Device See Rx Instructions .Route Rx Instructions: As directed (DME) miscellaneous medical supply Liquid See Rx Instructions .Route Qty: 1 0RF Rx Instructions: 1L normal saline, 250 cc/hr SPS (with sorbitol) 15-20 gram/60 mL suspension 60 ml PO DAILY valganciclovir 450 mg tablet 900 mg PO DAILY mycophenolate mofetil [CellCept] 250 mg capsule 250 mg PO UD Rx Instructions: 250 mg po AMHS Last filled 02/04/24, 30 day supply. Pt isnt sure of medications said everything should still be the same. pantoprazole 40 mg tablet,delayed release (DR/EC) 40 mg PO QAM insulin lispro 100 unit/mL Insulin Pen 1 sliding scale dose SUBCUT USEASDIRECTD tacrolimus [Prograf] 1 mg capsule 1 mg PO UD Rx Instructions: Last filled 11/29/23. Pt isnt sure of medications said everything should still be the same. TAKES 2 MG QAM, THEN 1 MG QHS Discontinued sodium bicarbonate 650 mg Tablet 650 mg PO BID Qty: 60 0RF penicillin V potassium 250 mg tablet 250 mg PO BID Admission Data Admit Date/Time: 04/19/24 12:13 Attending Provider: Lei Garcia Admit Provider: Marcus Pedro Primary Care Provider: She Davis Other Providers: Marcus Pedro; Raoul Carroll Coding Level of Care Code 00995 INP/OBS DISCH >30 MIN Diagnoses Acute hyperkalemia E87.5 Hypomagnesemia E83.42 MGUS (monoclonal gammopathy of unknown significance) D47.2 Renal transplant, status post Z94.0 Diabetes 1.5, managed as type 1 E13.9 Liver transplant recipient Z94.4 Dyslipidemia E78.5 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
[2024-04-20] MEDS: LANTUS PER UNIT CHARGE SC SCH (20:44)
[2024-04-20] MEDS: SODIUM BICARBONATE 650 MG TAB PO SCH (20:49)
[2024-04-21 04:28] LABS: Basophils # (auto) 0.01 K/uL (0.00-0.20); Basophils % (auto) 0.4 %; Eosinophils # (auto) 0.05 K/uL (0.00-0.50); Eosinophils % (auto) 2.2 %; Hematocrit (blood only) 24.9 % (37.0-47.0); Hemoglobin 8.7 g/dl (12.0-16.0); Immature Granulocytes # (auto) 0.02 K/uL (0.01-0.20); Immature Granulocytes % (auto) 0.9 %; Lymphocytes # (auto) 0.69 K/uL (1.20-3.40); Lymphocytes % (auto) 30.5 %; Mean Corpuscular Hemoglobin 32.6 pg (25.0-34.0); Mean Corpuscular Hgb Conc 34.9 g/dL (32.0-36.0); Mean Corpuscular Volume 93.3 fL (80.0-100.0); Mean Platelet Volume 11.6 fL (9.4-12.4); Monocytes # (auto) 0.15 K/uL (0.11-0.59); Monocytes % (auto) 6.6 %; Neutrophils # (auto) 1.34 K/uL (1.40-6.50); Neutrophils % (auto) 59.4 %; Platelet Count 72 K/uL (130-400); RDW Coefficient of Variation 13.2 % (11.5-14.5); RDW Standard Deviation 44.7 fL (36.4-46.3); Red Blood Count 2.67 M/uL (4.20-5.40); White Blood Count 2.26 K/ul (4.8-10.8)
[2024-04-21 04:43] LABS: Albumin Globulin Ratio 1.6 (0.9-2); Albumin Level 3.1 gm/dl (3.4-5.0); Bilirubin,Total 0.5 mg/dl (0.2-1.0); Calcium 8.2 mg/dl (8.6-10.3); Est GFR (African American) 26.7 ml/min; Potassium 4.7 mmol/L (3.5-5.1); Total Protein 5.1 gm/dl (6.0-8.3)
--- NOTE | 2024-04-21 07:22 | Discharge Summary ---
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 She was referred to the ED while receiving an infusion at [facility] on for hyperkalemia and hypomagnesemia on 04/19. Patient reports she is currently asymptomatic on arrival. Patient reports that she took all of her regular morning medications, however she has not been taking Lokelma this past week, as she is in the process of transitioning to Kayexalate. She also reports she is still taking valganciclovir daily for CMV ppx. Follows with Dr. Ba at [facility]. Patient reports that she is still producing urine. She denies smoking, tobacco use, and alcohol use. Patient is mildly hypertensive at 141/66 at time of admission; mildly bradycardic at 48 bpm; vitals otherwise stable. ED course: Calcium gluconate 1000 mg IV Regular human insulin 10 units IV Dextrose 50% 50 mL IV Albuterol 10 mg neb Lokelma 10 g p.o. Magnesium oxide 800 mg p.o. NSS 500 mL IV ROS: Patient endorses mild headache, and chronic neuropathy in her extremities. Patient denies fever, chills, night sweats, dizziness/lightheadedness, chest pain, chest palpitations, SOB, cough, abdominal pain, N/V/D, change in urinary or bowel habits, burning with urination, or dysuria. Principal Diagnosis hyperkalemia Discharge Exam The patient is awake, alert and oriented 3, well developed and well nourished, normocephalic and atraumatic, lying in bed and in no acute distress. HEENT--PERRL, EOMI, mucous membranes and oropharynx mildly dry Neck--supple. No JVD. No bruits. Thyroid normal, trachea midline, no adenopathy. Heart--normal S1 and S2. No murmurs, rubs or gallops. Lungs--clear bilaterally, no respiratory distress, no accessory muscle use. Abdomen--normal bowel sounds and soft. Extremities--no cyanosis or clubbing. No edema. Dermatologic--normal skin turgor, normal color, no abnormal lymph nodes, no rash. Neurologic--cranial nerves II through XII grossly intact. Rheumatologic--normal range of motion. Psychiatric--normal affect. Discharge Data Allergies Allergy/AdvReac Type Severity Reaction Status Date / Time Iodinated Contrast Media Allergy Intermediate Sneezing Verified 03/25/24 18:47 and breaks out into a rash doxycycline AdvReac Intermediate Vomiting Verified 03/25/24 18:47 metformin AdvReac Intermediate Gastrointestinal Verified 03/25/24 18:47 Upset Consultations 04/19/24 11:39 ED Decision to Admit Stat 04/19/24 14:19 Consult Nephrology Routine Hospital Course (1) Acute hyperkalemia: [facility] patient referred to the ED on 04/19 for hypomagnesemia and hyperkalemia K 6.8 on arrival; asymptomatic; patient denies CP/SOB Patient was transitioning from Kayexalate (taken the past week) to Lokelma (last taken on 04/13) Calcium gluconate, Lokelma 10 g, insulin, and dextrose 50% given in the ED Continue Lokelma 10 g p.o. 3 times daily; hold SPS (Kayexalate) for now Nephrology consulted Serum Potassium 4.7 this morning Patient would like to be discharged, will repeat serum K by noon, if normal will discharge Discharge home on Lokelma 10mg BID, Sodium Bicarbonate 1300mg BID and replace Penicillin V potassium with Amoxicillin 250mg BID (2) Hypomagnesemia: Mag 1.5 on arrival Magnesium oxide 800 mg p.o. given Trend mag (3) MGUS (monoclonal gammopathy of unknown significance): Infusion with Dr. Ba at [facility] on 04/19 Continue penicillin V potassium twice daily for chronic suppression; patient was previously on Bactrim, but was switched to penicillin V Despite hyperkalemia, will continue Pen V as there is only a small amount of K in medication (<1.00mEq in 250mg tab) (4) Renal transplant, status post: Former ESRD on HD; transplant on 11/13/23 Creatinine is around baseline on arrival Follows with Dr. 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): (9) Pancytopenia: Plan Disposition: d/c home Full code Dialysis renal, T1DM, low potassium diet VTE PPx: SCDs (low platelets / pancytopenia) Total Time Total Time Spent Total Time Spent (In Minutes): 35 Discharge Plan Discharge Items Patient Disposition: Home - Self-Care Reason For Visit: hyperK,hypomag Discharge Diagnosis: hyperkalemia Activity: Resume your previous activity Non-emergency contact: Primary Care Provider and Sap Data Architect Call non-emergency contact if: you have any medication questions Follow-up/Referrals: She Davis DO [Primary Care Provider] - Diet: Low Potassium (2gm) Ambulatory Orders: Comprehensive Metabolic Panel (Routine) Timeframe: 3 Days Location: Determined by Patient Ordered By: Lei Villedatl Attending Provider Instructions: please make appointment to follow up with your direct service professional Pending Studies at Discharge: No Stand-Alone Forms: My [facility], Smoking Cessation Medications and DC Order Prescriptions: New sodium bicarbonate 650 mg Tablet 1,300 mg PO BID 30 Days Qty: 120 0RF Lokelma 10 gram Powder In Packet 10 g PO BID 30 Days Qty: 30 0RF amoxicillin 250 mg capsule 250 mg PO BID 30 Days Qty: 60 0RF Continued solifenacin [Vesicare] 5 mg tablet 5 mg PO QAM Qty: 90 2RF (DME) Dexcom G7 Sensor Device See Rx Instructions .Route Rx Instructions: As directed (DME) miscellaneous medical supply Liquid See Rx Instructions .Route Qty: 1 0RF Rx Instructions: 1L normal saline, 250 cc/hr SPS (with sorbitol) 15-20 gram/60 mL suspension 60 ml PO DAILY valganciclovir 450 mg tablet 900 mg PO DAILY mycophenolate mofetil [CellCept] 250 mg capsule 250 mg PO UD Rx Instructions: 250 mg po AMHS Last filled 4/5/24, 30 day supply. Pt isnt sure of medications said everything should still be the same. pantoprazole 40 mg tablet,delayed release (DR/EC) 40 mg PO QAM insulin lispro 100 unit/mL Insulin Pen 1 sliding scale dose SUBCUT USEASDIRECTD tacrolimus [Prograf] 1 mg capsule 1 mg PO UD Rx Instructions: Last filled 11/29/23. Pt isnt sure of medications said everything should still be the same. TAKES 2 MG QAM, THEN 1 MG QHS Discontinued sodium bicarbonate 650 mg Tablet 650 mg PO BID Qty: 60 0RF penicillin V potassium 250 mg tablet 250 mg PO BID Discharge Orders: Discharge Order (Routine); Ordered 04/21/24 Ordered By: Lei Garcia Admission Data Admit Date/Time: 04/19/24 12:13 Attending Provider: Lei Garcia Admit Provider: Marcus Pedro Primary Care Provider: She Davis Other Providers: Marcus Pedro; Raoul Carroll Coding Level of Care Code 89058 INP/OBS DISCH >30 MIN Diagnoses Acute hyperkalemia E87.5 Hypomagnesemia E83.42 MGUS (monoclonal gammopathy of unknown significance) D47.2 Renal transplant, status post Z94.0 Diabetes 1.5, managed as type 1 E13.9 Liver transplant recipient Z94.4 Dyslipidemia E78.5 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
[2024-04-21] MEDS ORDERED: HEPARIN 100 UNIT/ML 5ML FLUSH ONE (07:35)
[2024-04-22 12:38] LABS: MPA Glucuronide <10.0 mcg/mL (35.0-100.0); Mycophenolic Acid <0.5 mcg/mL (1.0-3.5)
== END 2024-04-21 09:05 | disposition home or self-care (01) | DRG 640 ==
LOC: ED 09:26 → 1E 12:13 → SUATTDRO 12:13 → 1E 13:11
DX: E13.43 Other specified diabetes mellitus with diabetic autonomic (poly)neuropathy; Z94.0 Kidney transplant status; E87.5 Hyperkalemia; Z94.4 Liver transplant status; K31.84 Gastroparesis; K21.9 Gastro-esophageal reflux disease without esophagitis; Z88.8 Allergy status to other drugs, medicaments and biological substances; E87.20 Acidosis, unspecified; T86.10 Unspecified complication of kidney transplant; Z79.899 Other long term (current) drug therapy; Z91.041 Radiographic dye allergy status; E83.42 Hypomagnesemia; D61.818 Other pancytopenia; D84.9 Immunodeficiency, unspecified; D63.8 Anemia in other chronic diseases classified elsewhere; M31.10 Thrombotic microangiopathy, unspecified; E78.5 Hyperlipidemia, unspecified; D47.2 Monoclonal gammopathy; M19.90 Unspecified osteoarthritis, unspecified site; K74.69 Other cirrhosis of liver; K75.81 Nonalcoholic steatohepatitis (NASH); Z79.4 Long term (current) use of insulin; I10 Essential (primary) hypertension

== ENCOUNTER 2024-04-23 19:03 | Inpatient (IN) ==
[2024-04-23 20:02] LABS: Basophils # (auto) 0.01 K/uL (0.00-0.20); Basophils % (auto) 0.3 %; Eosinophils # (auto) 0.04 K/uL (0.00-0.50); Eosinophils % (auto) 1.2 %; Hematocrit (blood only) 26.8 % (37.0-47.0); Hemoglobin 9.2 g/dl (12.0-16.0); Immature Granulocytes # (auto) 0.01 K/uL (0.01-0.20); Immature Granulocytes % (auto) 0.3 %; Lymphocytes # (auto) 0.45 K/uL (1.20-3.40); Mean Corpuscular Hemoglobin 31.8 pg (25.0-34.0); Mean Corpuscular Hgb Conc 34.3 g/dL (32.0-36.0); Mean Corpuscular Volume 92.7 fL (80.0-100.0); Mean Platelet Volume 11.6 fL (9.4-12.4); Monocytes # (auto) 0.38 K/uL (0.11-0.59); Monocytes % (auto) 11.8 %; Neutrophils # (auto) 2.32 K/uL (1.40-6.50); Neutrophils % (auto) 72.4 %; Platelet Count 80 K/uL (130-400); RDW Coefficient of Variation 12.9 % (11.5-14.5); RDW Standard Deviation 43.5 fL (36.4-46.3); Red Blood Count 2.89 M/uL (4.20-5.40); White Blood Count 3.21 K/ul (4.8-10.8)
[2024-04-23 20:11] LABS: Appearance Urine Clear (Clear); Bacteria Urine Automated None Seen (None Seen); Bilirubin Urine Negative (Negative); Blood Urine 2+ (Negative); Cast Urine Automated 0-2 /lpf (0-2); Color Urine Yellow; Glucose Urine UA Negative (Negative); Ketones Urine Negative (Negative); Leukocyte Esterase Urine 3+ (Negative); Nitrite Urine Negative (Negative); Protein Urine Negative (Negative); RBC Urine Automated >20 /hpf (0-2); Specific Gravity Urine 1.014 (1.000-1.030); Urobilinogen Urine Negative (Negative); WBC Urine Automated >50 /hpf (0-5); pH Urine 6.5 (4.5-7.5)
--- NOTE | 2024-04-23 20:22 | Emergency Department Note ---
Impression & Plan Complicated urinary tract infection, Liver transplant recipient, Pancytopenia, Renal transplant, status post, Hypomagnesemia ED Provider Note NAME: JULIOCESAR LU AGE: 64 SEX: F : 1960 ARRIVES VIA: Walk-In INFORMANT: Patient ED PROVIDER(S): Silvestre Gonzalez MD CHIEF COMPLAINT: Fever, Transplant patient PLAN: Disposition: Admit MEDICAL DECISION MAKING: The patient is a pleasant 64-year-old woman with a past medical history of liver transplant in 2017 and recent kidney transplant in November 2023 at [facility], [facility] who presents to the emergency department via walk-in clinic by her for onset of fevers, body aches that began today. She reports that she also has urinary frequency. She denies any pain in her abdomen or transplant site. She denies any burning with urination or gross blood in her urine. She denies any cough congestion, chest pain, shortness of breath. The patient was admitted to this facility from 04/19-04/21 for hyperkalemia. Of note, the patient did arrive to emergency department during time of high volume, acuity and prolonged emergency department waiting times. Critical pathways initiated from triage. On evaluation patient is in no distress, febrile to 39.5 with vital signs otherwise stable. She appears clinically dry. Abdomen is nontender including no tenderness over RLQ transplant site. Patient's right Mediport site is clean dry intact without tenderness. EKG without overt acute ischemia. CXR negative for acute cardiopulmonary process per my personal preliminary review/interpretation. WBC 3.2 with ANC of 2.3, within normal limits and no left shift, similar to prior. H/H 9.2/26.8 and platelets 80 K, similar to prior values in setting of chronic pancytopenia. Creatinine is 2.01, similar to recent range values in the setting of CKD with her transplanted kidney. Bicarbonate is 18 but with normal anion gap, likely related to patient's chronic kidney disease. Lactic acid is 0.8, within normal limits. Magnesium 1.6 with IV repletion provided. High- sensitivity troponin is 22, nonspecific and in the absence of chest pain. Procalcitonin is not elevated. Respiratory biofire was negative. UA is suspicious for infection with leuk esterase, WBCs albeit with no bacteria or nitrites at this time. Patient treated with empiric Zosyn and Vancomycin. Case was discussed with Dr. Simone Cabezas, [facility], Transplant surgery. Appreciate consultations and recommendations. Does not feel that the patient needs to be transferred at this time for her infection which appears to be likely related to a UTI. Additionally, agrees that if the patient's creatinine is at baseline and the patient has no tenderness over her transplant site that CT imaging or ultrasound is also not necessary at this time. If the patient were to have pain or her kidney function would have a worsening trend then these test would be recommended. Agrees with broad- spectrum antibiotics. Given her active infection recommend holding CellCept but can continue with Prograf. In a.m. Prograf level can be obtained. The care coordinator will reach out to the admitting team in the morning and they will be available for additional consultation as needed. Zosyn and Vancomycin ordered. 1L NSS administered 30cc/kg deferred given CKD and patient is hemodynamically stable. Case was discussed with [place]. Mauro [facility] [place], who will evaluate the patient for admission. Further management per admitting team. Triage Nursing notes reviewed and agree them. Prior/external medical records reviewed Vital Signs: reviewed Differential diagnosis: Sepsis, UTI, pneumonia, metabolic, electrolyte abnormalities, cardiac sources, intracerebral event, toxicologic, neurologic, as well as other pathologies. ER treatment provided: See below. Diagnostics interpreted by me: ECG: NSR, 65 bpm, no ectopy, no overt ST elevation or depression. Cardiac Monitoring: An order for continuous cardiac monitoring was placed and demonstrated NSR, 65 bpm, no ectopy. Laboratory studies: See below Imaging studies: See below Consultation(s): Dr. Simone Cabezas, [facility], Transplant surgery. Dr. Mauro, [facility] [place]. HPI: The patient is a pleasant 64-year-old woman with a past medical history of liver transplant in 2017 and recent kidney transplant in November 2023 at [facility], [facility] who presents to the emergency department via walk-in clinic by her for onset of fevers, body aches that began today. She reports that she also has urinary frequency. She denies any pain in her abdomen or transplant site. She denies any burning with urination or gross blood in her urine. She denies any cough congestion, chest pain, shortness of breath. The patient was admitted to this facility from 04/19-04/21 for hyperkalemia. ROS: See above HPI for pertinent positives & negatives. A total of 10 systems reviewed and were otherwise negative. VITALS:See Below PHYSICAL EXAMINATION: GENERAL: Awake, alert, fatigued-appearing, in no distress HENT: Normocephalic, atraumatic. Oropharynx with dry mucous membranes and otherwise unremarkable. EYES: Normal conjunctiva. Sclera non-icteric. NECK: Supple. No nuchal rigidity. FROM. No JVD. RESPIRATORY: Clear to auscultation. CARDIAC: Regular rate, normal rhythm. 3/6 systolic murmur. Extremities warm and well perfused. Pulses equal. ABDOMEN: Soft, non-distended. No tenderness to palpation. No rebound or guarding. No masses. MUSCULOSKELETAL: Chest examination reveals no tenderness. Right upper chest port site is c/d/i. The back is symmetrical on inspection without obvious abnormality. There is no CVA tenderness to palpation. No joint edema. LOWER EXTREMITIES: Calves are equal size bilaterally and non-tender. No edema. No discoloration. NEURO: Normal sensorium. No sensory or motor deficits noted. SKIN: No rash or jaundice noted. ED COURSE: Critical Care: I have personally spent greater than 35minutes of critical care time in the direct management of this patient. This includes bedside care, interpretation of diagnostic studies, and testing, discussion with consultants, patient, and family members, and other required patient management activities. This 35 minutes is in excess of all separately billable procedures. Silvestre Gonzalez MD Past Med/Surg History Problem List (Updated 04/24/24 @ 04:54 by Silvestre Gonzalez MD) Complicated urinary tract infection (Acute) Fever Hypomagnesemia (Acute) Dyspnea Leukopenia (Acute) Acute hyperkalemia (Acute) Thrombotic microangiopathy Renal transplant, status post (Acute) History of colon polyps History of compression fracture of vertebral column (05/14/22) lumbar vertebra compression fracture History of vertebral fracture (~03/12/19) L1-L3 stress fractures Abnormal CT scan of lung Morbid obesity with BMI of 40.0-44.9, adult Neutropenia Pancytopenia Peripheral edema Diarrhea Proteinuria Ambulatory dysfunction (Acute) Lumbar pain with radiation down both legs Urinary incontinence, urge Diabetes mellitus with neurological manifestations, uncontrolled (Chronic) Diabetes 1.5, managed as type 1 (Chronic) Trigger finger of right hand Trigger finger of left hand Environmental allergies Hx of compression fracture of spine L1 and L4 Low back pain Anemia aplastic aregenerative (Acute) Dyslipidemia (Chronic) Enthesopathy of foot (Chronic) Gastroparesis (Acute) 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) Microscopic hematuria (Acute) Diabetic neuropathy (Chronic) Vitamin D deficiency (Chronic) Osteoarthritis Primary biliary cirrhosis GERD (gastroesophageal reflux disease) Cholestatic pruritus Anemia of chronic disease (Chronic) Plaque psoriasis Hypertension MGUS (monoclonal gammopathy of unknown significance) (Chronic) Osteopenia (Acute) Peripheral neuropathy (Chronic) Liver transplant recipient (Chronic ~10/13/18) [facility] 10/13/18 Bilateral foot-drop (Chronic) 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) Degenerative disc disease, lumbar (Chronic) Medical History Limb alert care status LUE AV fistual Poor venous access frequent infusions Hx of respiratory syncytial virus infection (~12/2023) admitted at [facility] x 5 days, History of COVID-19 (~10/2023) admitted at [facility] x 1 week, resolved DM type 2 (diabetes mellitus, type 2) IDDM COPD (chronic obstructive pulmonary disease) [facility] Osteoarthritis GERD (gastroesophageal reflux disease) Surgical History Hx of esophagogastroduodenoscopy Hx of appendectomy Kidney transplant recipient (~11/2023) right side, [facility], follows with Keesha Lopez S/P arteriovenous (AV) graft placement LUE - not currently in use History of lumbar laminectomy for spinal cord decompression (04/22/21) L3-L5 laminectomy History of total abdominal hysterectomy and bilateral salpingo-oophorectomy History of section X 2 History of colonoscopy History of tooth extraction Nasal polyp X 3 REMOVED History of tonsillectomy Family History Unknown Adopted Social History Smoking Status: Never smoker Second Hand Exposure: No; Do You Dip or Chew Tobacco: No; Hx Alcohol Use: No Hx Substance Use: No Preferred Language: Hungarian Communication Ability: Effective Visual Impairment: No Limitations Hearing Ability: Normal Manager Floor Required: No Beliefs That Will Affect Care: None marital status: Current Living Situation: Spouse Current Living Situation Comment: Lives at home with , son, and daughter current occupational status: employed How many Children do You have: 3 Feels Safe at Home: Yes Childhood Exposure to Second-Hand Smoke: No Diet: low carbohydrate caffeine: Yes during the past year weight has: remained stable Dental Care, Regularly: No Physical Activity Frequency: Daily Seatbelt Use: always Sunscreen Use: No Assistive Devices: Brace/Splint/Immobilizer and Walker Allergies Allergies Allergy/AdvReac Type Severity Reaction Status Date / Time Iodinated Contrast Media Allergy Intermediate Sneezing Verified 03/25/24 18:47 and breaks out into a rash doxycycline AdvReac Intermediate Vomiting Verified 03/25/24 18:47 metformin AdvReac Intermediate Gastrointestinal Verified 03/25/24 18:47 Upset Home Meds Home Medications Medication Instructions Recorded Confirmed blood-glucose sensor (DexVerold G7 08/17/23 01/04/24 Sensor device) insulin lispro 100 unit/mL 1 sliding scale dose subcut 12/11/23 04/19/24 subcutaneous pen USEASDIRECTD mycophenolate mofetil 250 mg 250 mg PO UD 12/11/23 04/19/24 capsule (CellCept) pantoprazole 40 mg tablet,delayed 40 mg PO QAM 12/11/23 04/19/24 release tacrolimus 1 mg capsule, 1 mg PO UD 01/04/24 04/19/24 immediate-release (Prograf) sodium polystyrene sulfonate 15 60 ml PO DAILY 04/19/24 04/19/24 gram-sorbitol 20 gram/60 mL oral susp (SPS (with sorbitol)) valganciclovir 450 mg tablet 900 mg PO DAILY 04/19/24 04/19/24 Previous Rx's Medication Instructions Recorded miscellaneous medical supply #1 L 01/05/24 solifenacin 5 mg tablet (Vesicare) 5 mg PO QAM #90 tabs 03/16/24 amoxicillin 250 mg capsule 250 mg PO BID 30 days #60 caps 04/20/24 sodium bicarbonate 650 mg tablet 1,300 mg (2 x 650 mg) PO BID 30 04/20/24 days #120 tabs sodium zirconium cyclosilicate 10 10 g PO BID 30 days #30 ea 04/20/24 gram oral powder packet (Lokelma) Results & Data (ED) Vital Signs Vital Signs - 24 hr 04/23/24 19:09 04/23/24 20:44 04/23/24 20:44 Temperature 39.5 C H Temperature Source Oral Pulse Rate 97 H Pulse Rate [Apical] 68 Respiratory Rate 16 23 Blood Pressure 141/66 H Blood Pressure [Right Arm] 121/56 L Blood Pressure Mean 91 Blood Pressure Mean [Right Arm] 77 Pulse Oximetry 97 Oxygen Delivery Method Room Air Room Air Room Air Sepsis Recent Fever Within 48 Hours No Sepsis New/Unexplained Change in Mental Status No Sepsis Action Taken by Nursing No Action Required 04/23/24 20:45 Temperature Temperature Source Pulse Rate 65 Pulse Rate [Apical] Respiratory Rate Blood Pressure Blood Pressure [Right Arm] Blood Pressure Mean Blood Pressure Mean [Right Arm] Pulse Oximetry Oxygen Delivery Method Sepsis Recent Fever Within 48 Hours Sepsis New/Unexplained Change in Mental Status Sepsis Action Taken by Nursing Laboratory Data Attestation: I reviewed the patient's lab results. 04/23/24 19:48 04/23/24 19:48 Lab Results 04/23/24 04/23/24 04/23/24 Range/Units 19:13 19:48 19:54 WBC 3.21 L (4.8-10.8) K/ul RBC 2.89 L (4.20-5.40) M/uL Hgb 9.2 L (12.0-16.0) g/dl Hct 26.8 L (37.0-47.0) % MCV 92.7 (80.0-100.0) fL MCH 31.8 (25.0-34.0) pg MCHC 34.3 (32.0-36.0) g/dL RDW Std Deviation 43.5 (36.4-46.3) fL RDW Coeff of Paty 12.9 (11.5-14.5) % Plt Count 80 L (130-400) K/uL MPV 11.6 (9.4-12.4) fL Immature Gran % (Auto) 0.3 % Neut % (Auto) 72.4 % Lymph % (Auto) 14.0 % [place] % (Auto) 11.8 % Eos % (Auto) 1.2 % Baso % (Auto) 0.3 % Neut # (Auto) 2.32 (1.40-6.50) K/uL Lymph # (Auto) 0.45 L (1.20-3.40) K/uL [place] # (Auto) 0.38 (0.11-0.59) K/uL Eos # (Auto) 0.04 (0.00-0.50) K/uL Baso # (Auto) 0.01 (0.00-0.20) K/uL Immature Gran # (Auto) 0.01 (0.01-0.20) K/uL PT 11.4 (9.0-12.0) Seconds INR 1.1 (0.9-1.1) APTT 30 (21-31) Seconds PTT Ratio 1.1 Sodium 133 L (136-145) mmol/L Potassium 4.6 (3.5-5.1) mmol/L Chloride 108 H (98-107) mmol/L Carbon Dioxide 18 L (21-32) mmol/L Anion Gap 7 (3-11) BUN 34 H (6-23) mg/dl Creatinine 2.01 H (0.6-1.2) mg/dl Est Cr Clr Drug Dosing Not Reportable Est GFR ( Amer) 30.1 ml/min Est GFR (Non-Af Amer) 25.9 ml/min BUN/Creatinine Ratio 16.9 (10-20) Glucose 141 H (70-99(Fasting)) mg/dl Lactate 0.8 (0.4-2.0) mmol/L Calcium 7.7 L (8.6-10.3) mg/dl Magnesium 1.6 L (1.7-2.4) mg/dl Total Bilirubin 1.1 H (0.2-1.0) mg/dl AST 15 (13-39) U/L ALT 8 (7-52) U/L Alkaline Phosphatase 72 (34-104) U/L Troponin I High Sens 22.4 H (0-14) pg/ml Total Protein 5.7 L (6.0-8.3) gm/dl Albumin 3.4 (3.4-5.0) gm/dl Globulin 2.3 L (2.5-4.0) gm/dl Albumin/Globulin Ratio 1.5 (0.9-2) Procalcitonin 0.31 (0-0.5) ng/ml Urine Color Yellow Urine Appearance Clear (Clear) Urine pH 6.5 (4.5-7.5) Ur Specific [place] 1.014 (1.000-1.030) Urine Protein Negative (Negative) Urine Glucose (UA) Negative (Negative) Urine Ketones Negative (Negative) Urine Blood 2+ H (Negative) Urine Nitrite Negative (Negative) Urine Bilirubin Negative (Negative) Urine Urobilinogen Negative (Negative) Ur Leukocyte Esterase 3+ H (Negative) Urine WBC (Auto) >50 H (0-5) /hpf Urine RBC (Auto) >20 H (0-2) /hpf U Hyaline Cast (Auto) 0-2 (0-2) /lpf U Epithel Cells (Auto) 3-5 H (0-2) /hpf Urine Bacteria (Auto) None Seen (None Seen) Adenovirus (PCR) Not Detected (NotDetected) B. pertussis DNA (PCR) Not Detected (NotDetected) B.parapertussis DNA PCR Not Detected (NotDetected) C. pneumoniae DNA (PCR) Not Detected (NotDetected) Coronavirus OC43 (PCR) Not Detected (NotDetected) Coronavirus HKU1 (PCR) Not Detected (NotDetected) Coronavirus 229E (PCR) Not Detected (NotDetected) SARS-CoV-2 (PCR) Not Detected (NotDetected) Coronavirus NL63 (PCR) Not Detected (NotDetected) Human Metapneumovir PCR Not Detected (NotDetected) Influenza Type A (PCR) Not Detected (NotDetected) Influenza Type B (PCR) Not Detected (NotDetected) M. pneumoniae (PCR) Not Detected (NotDetected) Parainfluenza 1 (PCR) Not Detected (NotDetected) Parainfluenza 2 (PCR) Not Detected (NotDetected) Parainfluenza 3 (PCR) Not Detected (NotDetected) Parainfluenza 4 (PCR) Not Detected (NotDetected) RSV (PCR) Not Detected (NotDetected) Entero/Rhino (PCR) Not Detected (NotDetected) 04/23/24 Range/Units 20:35 WBC (4.8-10.8) K/ul RBC (4.20-5.40) M/uL Hgb (12.0-16.0) g/dl Hct (37.0-47.0) % MCV (80.0-100.0) fL MCH (25.0-34.0) pg MCHC (32.0-36.0) g/dL RDW Std Deviation (36.4-46.3) fL RDW Coeff of Paty (11.5-14.5) % Plt Count (130-400) K/uL MPV (9.4-12.4) fL Immature Gran % (Auto) % Neut % (Auto) % Lymph % (Auto) % [place] % (Auto) % Eos % (Auto) % Baso % (Auto) % Neut # (Auto) (1.40-6.50) K/uL Lymph # (Auto) (1.20-3.40) K/uL [place] # (Auto) (0.11-0.59) K/uL Eos # (Auto) (0.00-0.50) K/uL Baso # (Auto) (0.00-0.20) K/uL Immature Gran # (Auto) (0.01-0.20) K/uL PT (9.0-12.0) Seconds INR (0.9-1.1) APTT (21-31) Seconds PTT Ratio Sodium (136-145) mmol/L Potassium (3.5-5.1) mmol/L Chloride (98-107) mmol/L Carbon Dioxide (21-32) mmol/L Anion Gap (3-11) BUN (6-23) mg/dl Creatinine (0.6-1.2) mg/dl Est Cr Clr Drug Dosing Est GFR ( Amer) ml/min Est GFR (Non-Af Amer) ml/min BUN/Creatinine Ratio (10-20) Glucose (70-99(Fasting)) mg/dl Lactate 0.8 (0.4-2.0) mmol/L Calcium (8.6-10.3) mg/dl Magnesium (1.7-2.4) mg/dl Total Bilirubin (0.2-1.0) mg/dl AST (13-39) U/L ALT (7-52) U/L Alkaline Phosphatase (34-104) U/L Troponin I High Sens (0-14) pg/ml Total Protein (6.0-8.3) gm/dl Albumin (3.4-5.0) gm/dl Globulin (2.5-4.0) gm/dl Albumin/Globulin Ratio (0.9-2) Procalcitonin (0-0.5) ng/ml Urine Color Urine Appearance (Clear) Urine pH (4.5-7.5) Ur Specific [place] (1.000-1.030) Urine Protein (Negative) Urine Glucose (UA) (Negative) Urine Ketones (Negative) Urine Blood (Negative) Urine Nitrite (Negative) Urine Bilirubin (Negative) Urine Urobilinogen (Negative) Ur Leukocyte Esterase (Negative) Urine WBC (Auto) (0-5) /hpf Urine RBC (Auto) (0-2) /hpf U Hyaline Cast (Auto) (0-2) /lpf U Epithel Cells (Auto) (0-2) /hpf Urine Bacteria (Auto) (None Seen) Adenovirus (PCR) (NotDetected) B. pertussis DNA (PCR) (NotDetected) B.parapertussis DNA PCR (NotDetected) C. pneumoniae DNA (PCR) (NotDetected) Coronavirus OC43 (PCR) (NotDetected) Coronavirus HKU1 (PCR) (NotDetected) Coronavirus 229E (PCR) (NotDetected) SARS-CoV-2 (PCR) (NotDetected) Coronavirus NL63 (PCR) (NotDetected) Human Metapneumovir PCR (NotDetected) Influenza Type A (PCR) (NotDetected) Influenza Type B (PCR) (NotDetected) M. pneumoniae (PCR) (NotDetected) Parainfluenza 1 (PCR) (NotDetected) Parainfluenza 2 (PCR) (NotDetected) Parainfluenza 3 (PCR) (NotDetected) Parainfluenza 4 (PCR) (NotDetected) RSV (PCR) (NotDetected) Entero/Rhino (PCR) (NotDetected) Administered Medications Sodium Chloride (Nss) 1,000 mls @ 999 mls/hr IV .[id number] [facility] Stop: 04/23/24 22:30 Last Admin: 04/23/24 20:49 Dose: 999 mls/hr Documented By: MICHAEL Discontinued Medications Piperacillin Sod/Tazobactam Sod (Zosyn) 4.5 gm in 100 mls @ 200 mls/hr IV NOW ONE Stop: 04/23/24 20:45 Last Admin: 04/23/24 21:06 Dose: 200 mls/hr Documented By: MICHAEL Acetaminophen (Ofirmev) 1,000 mg in 100 mls @ 400 mls/hr IV NOW STA Stop: 04/23/24 20:30 Last Infusion: 04/23/24 21:06 Dose: Infused Documented By: Admin: 04/23/24 20:50 Dose: 400 mls/hr Documented By: MICHAEL Discharge Plan Visit Data Chief Complaint: Fever Stated Complaint: FEVER ED Provider: Silvestre Gonzalez Discharge Problem: Complicated urinary tract infection, Liver transplant recipient, Pancytopenia, Renal transplant, status post, Hypomagnesemia
[2024-04-23 20:27] LABS: Adenovirus PCR Not Detected (NotDetected); Bordetella parapertussis PCR Not Detected (NotDetected); Bordetella pertussis PCR Not Detected (NotDetected); Chlamydia pneumoniae PCR Not Detected (NotDetected); Coronavirus 229E PCR Not Detected (NotDetected); Coronavirus CoV-2 (COVID19)PCR Not Detected (NotDetected); Coronavirus HKU1 PCR Not Detected (NotDetected); Coronavirus NL63 PCR Not Detected (NotDetected); Coronavirus OC43PCR Not Detected (NotDetected); Human Metapneumovirus PCR Not Detected (NotDetected); Influenza A PCR Not Detected (NotDetected); Influenza B PCR Not Detected (NotDetected); Mycoplasma pneumoniae PCR Not Detected (NotDetected); Parainfluenza Virus 1 PCR Not Detected (NotDetected); Parainfluenza Virus 2 PCR Not Detected (NotDetected); Parainfluenza Virus 3 PCR Not Detected (NotDetected); Parainfluenza Virus 4 PCR Not Detected (NotDetected); Respiratory Syncytial VirusPCR Not Detected (NotDetected); Rhinovirus/Enterovirus PCR Not Detected (NotDetected)
[2024-04-23 20:30] LABS: INR 1.1 (0.9-1.1); Partial Thromboplastin Ratio 1.1; Partial Thromboplastin Time 30 Seconds (21-31); Prothrombin Time 11.4 Seconds (9.0-12.0)
[2024-04-23 20:42] LABS: Anion Gap 7 (3-11); BUN Creatinine Ratio 16.9 (10-20); Blood Urea Nitrogen 34 mg/dl (6-23); Calcium 7.7 mg/dl (8.6-10.3); Carbon Dioxide 18 mmol/L (21-32); Chloride 108 mmol/L (98-107); Est GFR (African American) 30.1 ml/min; Est GFR (Non-African American) 25.9 ml/min; Glucose 141 mg/dl (70-99(Fasting)); Magnesium 1.6 mg/dl (1.7-2.4); Potassium 4.6 mmol/L (3.5-5.1); Sodium 133 mmol/L (136-145)
[2024-04-23 20:43] LABS: Alanine Aminotransferase 8 U/L (7-52); Albumin Globulin Ratio 1.5 (0.9-2); Albumin Level 3.4 gm/dl (3.4-5.0); Alkaline Phosphatase 72 U/L (34-104); Aspartate Aminotransferase 15 U/L (13-39); Bilirubin,Total 1.1 mg/dl (0.2-1.0); Globulin 2.3 gm/dl (2.5-4.0); Total Protein 5.7 gm/dl (6.0-8.3); Troponin I High Sensitivity 22.4 pg/ml (0-14)
[2024-04-23] MEDS: SODIUM CHLORIDE 0.9% 1,000 ML IV SCH ×2 (20:49→23:40)
[2024-04-23] MEDS: ACETAMINOPHEN 1,000 MG/100 ML VIAL IV STA (20:50)
[2024-04-23] MEDS: PIPERACILLIN/TAZOBACTAM 4.5 GM/100 ML BAG IV ONE (21:06)
[2024-04-23] MEDS ORDERED: VANCOMYCIN CONSULT ACTIVE PRN ×2 (21:39→22:03)
[2024-04-23] MEDS ORDERED: ONDANSETRON INJ 2 MG/ML 2 ML VIAL IV PRN (22:03)
[2024-04-23] MEDS ORDERED: GLUCOSE 10 TAB/TUBE PO PRN (22:03)
[2024-04-23] MEDS ORDERED: GLUCAGON FOR INJ 1 MG VIAL SQ PRN (22:03)
[2024-04-23] MEDS ORDERED: DEXTROSE 50% 50 ML SYRINGE IV PRN (22:03)
[2024-04-23] MEDS ORDERED: GLUCOSE 40% GEL 15 GM TUBE PO PRN (22:03)
[2024-04-23] MEDS ORDERED: CARBOHYDRATES FOR HYPOGLYCEMIA PO PRN (22:03)
[2024-04-23] MEDS: VANCOMYCIN HCL 2,000 MG in SODIUM CHLORIDE 0.9% 500 ML IV ONE (22:11)
--- NOTE | 2024-04-23 22:16 | History & Physical Report ---
Date of Service April 23, 2024 Assessment & Plan (1) Fever: Plan: Assessment: 1. Fever-probable secondary to acute urinary tract infection. However given the patient's immunocompromise state and transplant state, and recent hospitalization, blood cultures will be obtained. Urine cultures. Viral respiratory panel was negative. Will treat with broad-spectrum antibiotic therapy in the form of vancomycin and cefepime. Patient received vancomycin and Zosyn in the ER, but again given the increased chances of renal failure with this drug combination will do vancomycin and cefepime. Again, ER provider did make contact with the [facility] transplant team Dr. Simone Cabezas who does recommend continuing Prograf during his stay obtaining a Prograf level and holding CellCept during the stay. 2. Status post kidney transplant November 2023. Follows with [facility] transplant team. This is secondary to end-stage renal disease was hemodialysis dependent but no longer posttransplant. Patient appears to have resultant CKD stage III 3. TORRES with cirrhosis status post liver transplant 2017 at [facility]. 4. 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 5. MGUS (monoclonal gammopathy of unknown significance) is followed closely as an outpatient. 6. Dyslipidemia continue home medications. 7. Pancytopenia appears chronic and stable. SCDs for DVT prophylaxis given thrombocytopenia Plan: As described above. Please refer to orders for further planning. History of Present Illness Chief Complaint: Fever Primary Care Provider: She Davis DO This is a pleasant 64-year-old female who is status post kidney transplant in November 2019 for liver transplant in 2017. Recently admitted to the hospital over the last week with acute hyperkalemia. Patient was at home and doing fine since her discharge up until today when she began to run a fever. She contacted her transplant team and presented to the ER for further evaluation and treatment. In the ER the patient was identified to have an acute urinary tract infection. She did admit to dysuria over the last 24 to 36 hours. Laboratory studies were otherwise unremarkable with a baseline white blood cell count at baseline hemoglobin at baseline creatinine and normal potassium this evening. Blood cultures were obtained in the ER. The ER provider made contact with the [facility] transplant team and spoke with Dr. Simone Cabezas. Recommendation was for admission to [facility] with broad-spectrum IV antibiotic therapy but the patient does well to eventually convert to oral antibiotic therapy but if the patient decompensates contact the transplant team for further recommendations and possible transfer. In addition recommendation was given to hold CellCept during the admission to continue Prograf, and obtain a Prograf level in the a.m. Therefore we will go to give the patient IV vancomycin and IV cefepime. Patient received Zosyn in the ER but given the renal insufficiency and history of renal transplant and the increase incidence of possible renal failure with vancomycin and Zosyn we will use vancomycin and cefepime. Blood cultures were obtained urine cultures are pending. Monitor patient carefully. Allergies Allergy/AdvReac Type Severity Reaction Status Date / Time Iodinated Contrast Media Allergy Intermediate Sneezing Verified 03/25/24 18:47 and breaks out into a rash doxycycline AdvReac Intermediate Vomiting Verified 03/25/24 18:47 metformin AdvReac Intermediate Gastrointestinal Verified 03/25/24 18:47 Upset Home Medications Medication Instructions Recorded Confirmed Type blood-glucose sensor (Dexcom G7 08/17/23 01/04/24 History Sensor device) insulin lispro 100 unit/mL 1 sliding scale dose subcut 12/11/23 04/19/24 History subcutaneous pen USEASDIRECTD mycophenolate mofetil 250 mg 250 mg PO UD 12/11/23 04/19/24 History capsule (CellCept) pantoprazole 40 mg tablet,delayed 40 mg PO QAM 12/11/23 04/19/24 History release tacrolimus 1 mg capsule, 1 mg PO UD 01/04/24 04/19/24 History immediate-release (Prograf) miscellaneous medical supply #1 L 01/05/24 01/05/24 Rx solifenacin 5 mg tablet (Vesicare) 5 mg PO QAM #90 tabs 03/16/24 04/19/24 Rx sodium polystyrene sulfonate 15 60 ml PO DAILY 04/19/24 04/19/24 History gram-sorbitol 20 gram/60 mL oral susp (SPS (with sorbitol)) valganciclovir 450 mg tablet 900 mg PO DAILY 04/19/24 04/19/24 History amoxicillin 250 mg capsule 250 mg PO BID 30 days #60 caps 04/20/24 Rx sodium bicarbonate 650 mg tablet 1,300 mg (2 x 650 mg) PO BID 30 04/20/24 Rx days #120 tabs sodium zirconium cyclosilicate 10 10 g PO BID 30 days #30 ea 04/20/24 Rx gram oral powder packet (Lokelma) Past Med/Surg History Problem List (Updated 04/23/24 @ 22:22 by Pepe Mauro, PhD, DO) Fever Hypomagnesemia (Acute) Dyspnea Leukopenia (Acute) Acute hyperkalemia (Acute) Thrombotic microangiopathy Renal transplant, status post History of colon polyps History of compression fracture of vertebral column (05/14/22) lumbar vertebra compression fracture History of vertebral fracture (~03/12/19) L1-L3 stress fractures Abnormal CT scan of lung Morbid obesity with BMI of 40.0-44.9, adult Neutropenia Pancytopenia Peripheral edema Diarrhea Proteinuria Ambulatory dysfunction (Acute) Lumbar pain with radiation down both legs Urinary incontinence, urge Diabetes mellitus with neurological manifestations, uncontrolled (Chronic) Diabetes 1.5, managed as type 1 (Chronic) Trigger finger of right hand Trigger finger of left hand Environmental allergies Hx of compression fracture of spine L1 and L4 Low back pain Anemia aplastic aregenerative (Acute) Dyslipidemia (Chronic) Enthesopathy of foot (Chronic) Gastroparesis (Acute) 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) Microscopic hematuria (Acute) Diabetic neuropathy (Chronic) Vitamin D deficiency (Chronic) Osteoarthritis Primary biliary cirrhosis GERD (gastroesophageal reflux disease) Cholestatic pruritus Anemia of chronic disease (Chronic) Plaque psoriasis Hypertension MGUS (monoclonal gammopathy of unknown significance) (Chronic) Osteopenia (Acute) Peripheral neuropathy (Chronic) Liver transplant recipient (Chronic ~10/13/18) [facility] 10/13/18 Bilateral foot-drop (Chronic) 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) Degenerative disc disease, lumbar (Chronic) Medical History Limb alert care status LUE AV fistual Poor venous access frequent infusions Hx of respiratory syncytial virus infection (~12/2023) admitted at [facility] x 5 days, History of COVID-19 (~10/2023) admitted at [facility] x 1 week, resolved DM type 2 (diabetes mellitus, type 2) IDDM COPD (chronic obstructive pulmonary disease) Follows Pulmonology in [place] Osteoarthritis GERD (gastroesophageal reflux disease) Surgical History Hx of esophagogastroduodenoscopy Hx of appendectomy Kidney transplant recipient (~11/2023) right side, [facility], follows with Keesha Lopez S/P arteriovenous (AV) graft placement LUE - not currently in use History of lumbar laminectomy for spinal cord decompression (04/22/21) L3-L5 laminectomy History of total abdominal hysterectomy and bilateral salpingo-oophorectomy History of section X 2 History of colonoscopy History of tooth extraction Nasal polyp X 3 REMOVED History of tonsillectomy Family History Unknown Adopted Social History Smoking Status: Never smoker Second Hand Exposure: No; Do You Dip or Chew Tobacco: No; Hx Alcohol Use: No Hx Substance Use: No Preferred Language: Vincentian Communication Ability: Effective Visual Impairment: No Limitations Hearing Ability: Normal 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 Beliefs That Will Affect Care: None marital status: Current Living Situation: Spouse Current Living Situation Comment: Lives at home with , son, and daughter current occupational status: employed How many Children do You have: 3 Feels Safe at Home: Yes Childhood Exposure to Second-Hand Smoke: No Diet: low carbohydrate caffeine: Yes during the past year weight has: remained stable Dental Care, Regularly: No Physical Activity Frequency: Daily Seatbelt Use: always Sunscreen Use: No Assistive Devices: Brace/Splint/Immobilizer and Walker Review of Systems Review of Systems: A 10 point review of system was obtained and unless otherwise stated here or in history of present illness are negative and noncontributory to chief complaint. Physical Exam Physical Exam: In General: In general this is a pleasant 64-year-old female who is alert and oriented x 3 at the time of my exam. She is accompanied by her at the time of my examination. She interacts appropriately and pleasantly. The patient denies any other symptomatology other than her fever that she experienced today as well as mild dysuria over the last day and a half. HEENT: Normocephalic atraumatic pupils are equal round and reactive to light bilaterally. No scleral icterus no conjunctival injection external auditory canals are patent septum is in the midline nose is without discharge oral mucosa is pink and moist without lesion. NECK: Supple no rigidity no lymphadenopathy no thyromegaly no carotid bruits no JVD no masses. HEART: Regular rate and rhythm I do not appreciate any ectopy or rub. No murmur. Wsmisy-h-Abhr noted in the right chest wall is currently accessed which was accessed in the ER. LUNGS: Clear to auscultation bilaterally and anteriorly with no evidence of adventitious sounds/wheezes rales or rhonchi. ABDOMEN: Soft nontender, no rebound, no peritoneal signs, positive bowel sounds, no appreciable organomegaly. EXTREMITIES: Intact, no peripheral cyanosis, clubbing or edema. Strength is 5 out of 5 in extremities x4, no pathological reflexes. NEUROLOGICAL: Cranial nerves II through XII are grossly intact with no focal deficit elicited upon examination. No tremor. Results & Data Results & Data Vital Signs (Past 12 Hours) Vital Signs Temp Pulse Pulse Resp BP BP Pulse Ox 04/23/24 22:12 37.1 C 04/23/24 22:00 62 17 112/51 L 94 04/23/24 20:45 65 04/23/24 20:44 04/23/24 20:44 68 23 121/56 L 04/23/24 19:09 39.5 C H 97 H 16 141/66 H 97 O2 Del Method 04/23/24 22:12 04/23/24 22:00 Room Air 04/23/24 20:45 04/23/24 20:44 Room Air 04/23/24 20:44 Room Air 04/23/24 19:09 Room Air Code Status & VTE Plan Code Status Full code-I personally discussed with the patient at the bedside this evening. VTE Prophylaxis Plan VTE Prophylaxis will be ordered: Yes PG Care Time/CCT Total # of Minutes Spent Total Time Spent with Patient: Total time spent is greater than 50% in coordination of care (as documented) at patient's floor/unit and/or counseling patient: Coding Level of Care Code 89410 INT INP/OBS CARE 3/75MIN Diagnoses Fever R50.9
[2024-04-24] MEDS: TACROLIMUS 1 MG CAP PO SCH ×2 (00:16→08:52)
[2024-04-24 05:21] LABS: Hematocrit (blood only) 25.3 % (37.0-47.0); Hemoglobin 8.4 g/dl (12.0-16.0); Mean Corpuscular Hemoglobin 31.9 pg (25.0-34.0); Mean Corpuscular Hgb Conc 33.2 g/dL (32.0-36.0); Mean Corpuscular Volume 96.2 fL (80.0-100.0); Mean Platelet Volume 11.6 fL (9.4-12.4); Platelet Count 54 K/uL (130-400); RDW Coefficient of Variation 13.1 % (11.5-14.5); RDW Standard Deviation 45.6 fL (36.4-46.3); Red Blood Count 2.63 M/uL (4.20-5.40)
[2024-04-24 06:21] LABS: Eosinophils # (auto) 0.02 K/uL (0.00-0.50); Eosinophils % (auto) 1.3 %; Lymphocytes # (auto) 0.33 K/uL (1.20-3.40); Monocytes # (auto) 0.22 K/uL (0.11-0.59); Monocytes % (auto) 14.7 %; Neutrophils # (auto) 0.93 K/uL (1.40-6.50)
--- NOTE | 2024-04-24 06:42 | XRay Report ---
XR chest 1V not portable CLINICAL HISTORY: Sepsis TECHNIQUE: Single frontal radiograph of the chest was obtained. Comparison: Comparison is made to chest radiograph 03/25/2024 FINDINGS: A port catheter is seen. Calcified aortic knob is seen. There are airspace opacities in the right umu g most prominent in the perihilar region. No evidence of pleural effusion or pneumothorax. IMPRESSION: Airspace opacities are in the right lung. This may represent atelectasis, pneumonia, and/or aspiratio n. ACT 112: Negative or not required by law. Electronically signed by: Kervin Augustin M.D. 04/24/2024 6:42 AM
[2024-04-24 07:18] LABS: Estimated Average Glucose 214 mg/dl; Hemoglobin A1C 9.1 % (4.5-5.6)
--- NOTE | 2024-04-24 07:59 | Electrocardiogram Report ---
Test Reason : Blood Pressure : / mmHG Vent. Rate : 065 BPM Atrial Rate : 065 BPM P-R Int : 126 ms QRS Dur : 084 ms QT Int : 434 ms P-R-T Axes : 045 -35 017 degrees QTc Int : 451 ms Normal sinus rhythm Left axis deviation Possible Old Anterior infarct (cited on or before 19-APR-2024) Abnormal ECG When compared with ECG of 19-APR-2024 09:48, Premature atrial complexes are no longer Present Confirmed by Teodoro Hinojosa ([id number]) on 04/24/2024 7:59:04 AM Referred By: Confirmed By:Teodoro Hinojosa
[2024-04-24] MEDS: INSULIN ASPART PER UNIT CHARGE SC SCH (08:26)
[2024-04-24] MEDS: LANTUS PER UNIT CHARGE SQ SCH (08:26)
[2024-04-24] MEDS: AMOXICILLIN 250 MG CAP PO SCH (08:51)
[2024-04-24] MEDS: OXYBUTYNIN CHLORIDE XL 5 MG TABCR PO SCH (08:52)
[2024-04-24] MEDS: VALGANCICLOVIR HCL 450 MG TABLET PO SCH (08:52)
[2024-04-24] MEDS: PANTOprazole 40 MG TAB PO SCH (08:52)
[2024-04-24] MEDS: SODIUM BICARBONATE 650 MG TAB PO SCH (08:52)
[2024-04-24] MEDS: SODIUM ZIRCONIUM CYCLOSILICATE 10 GM PACKET PO SCH (08:53)
[2024-04-24] MEDS ORDERED: VANCOMYCIN HCL 1,250 MG in SODIUM CHLORIDE 0.9% 500 ML IV SCH (09:00)
[2024-04-24] MEDS ORDERED: SODIUM POLYSTYRENE ENEMA PR SCH (09:00)
[2024-04-24] MEDS: CEFEPIME 2,000 MG in SYRINGE 0 ML IV ONE (11:01)
--- NOTE | 2024-04-24 12:42 | Hospitalist Progress Note ---
Date of Service April 24, 2024 Assessment & Plan (1) Complicated urinary tract infection: Plan: Patient presents to the hospital on account of fever and some mild abdominal pain. Found to have evidence of UTI on urinalysis Urine cultures obtained The ED physician reached out to her transplant physician who recommends continuing Prograf, obtaining Prograf level but holding the CellCept Initially given a dose of vancomycin and cefepime, on account of bad renal function, will hold vancomycin and continue cefepime (2) Renal transplant, status post: Plan: Status post kidney transplant November 2023. Follows with [facility] transplant team. This is secondary to end-stage renal disease was hemodialysis dependent but no longer posttransplant. Patient appears to have resultant CKD stage III Continue Prograf, hold CellCept Obtain Prograf level (3) MGUS (monoclonal gammopathy of unknown significance): Plan: Continue outpatient follow-up (4) Liver transplant recipient: (5) Fever: Plan Continue to monitor closely in the hospital Full code Admission and Anticipated Discharge Date Admission Date: April 23, 2024 Results & Data Results & Data Vital Signs (Past 12 Hours) Vital Signs Temp Pulse Pulse Resp BP Pulse Ox O2 Del Method 04/24/24 11:21 97.7 F 59 L 18 117/59 L 99 Room Air 04/24/24 07:10 97.5 F L 51 L 19 106/67 97 Room Air 04/24/24 07:04 49 L 04/24/24 03:00 52 L 18 118/58 L 98 Room Air 04/24/24 02:42 53 L 14 117/48 L 97 Room Air PG Care Time/CCT Total # of Minutes Spent Total Time Spent with Patient: Total time spent is greater than 50% in coordination of care (as documented) at patient's floor/unit and/or counseling patient: Coding Level of Care Code 94227 SUB INP/OBS CARE 2/35MIN Diagnoses Complicated urinary tract infection N39.0 Renal transplant, status post Z94.0 MGUS (monoclonal gammopathy of unknown significance) D47.2 Liver transplant recipient Z94.4 Fever R50.9 Time Spent (min) 35
[2024-04-24] MEDS: ACETAMINOPHEN 325 MG TAB PO PRN (17:27)
[2024-04-24] MEDS: CEFEPIME 1,000 MG in SYRINGE 0 ML IV SCH (21:41)
[2024-04-25 05:25] LABS: Hematocrit (blood only) 23.9 % (37.0-47.0); Mean Corpuscular Hemoglobin 31.9 pg (25.0-34.0); Mean Corpuscular Hgb Conc 33.5 g/dL (32.0-36.0); Mean Corpuscular Volume 95.2 fL (80.0-100.0); Mean Platelet Volume 11.2 fL (9.4-12.4); Platelet Count 63 K/uL (130-400); RDW Standard Deviation 45.1 fL (36.4-46.3); Red Blood Count 2.51 M/uL (4.20-5.40); White Blood Count 1.08 K/ul (4.8-10.8)
[2024-04-25 05:40] LABS: BUN Creatinine Ratio 18.6 (10-20); Calcium 7.3 mg/dl (8.6-10.3); Creatinine Clr Calc Pharmacy 30.5 ml/min; Est GFR (African American) 37.6 ml/min; Est GFR (Non-African American) 32.5 ml/min; Potassium 3.8 mmol/L (3.5-5.1)
--- NOTE | 2024-04-25 11:01 | Discharge Summary ---
Date of Service April 25, 2024 Admission HPI Per Admitting Provider This is a pleasant 64-year-old female who is status post kidney transplant in November 2019 for liver transplant in 2018. Recently admitted to the hospital over the last week with acute hyperkalemia. Patient was at home and doing fine since her discharge up until today when she began to run a fever. She contacted her transplant team and presented to the ER for further evaluation and treatment. In the ER the patient was identified to have an acute urinary tract infection. She did admit to dysuria over the last 24 to 36 hours. Laboratory studies were otherwise unremarkable with a baseline white blood cell count at baseline hemoglobin at baseline creatinine and normal potassium this evening. Blood cultures were obtained in the ER. The ER provider made contact with the [facility] transplant team and spoke with Dr. Simone Cabezas. Recommendation was for admission to [facility] with broad-spectrum IV antibiotic therapy but the patient does well to eventually convert to oral antibiotic therapy but if the patient decompensates contact the transplant team for further recommendations and possible transfer. In addition recommendation was given to hold CellCept during the admission to continue Prograf, and obtain a Prograf level in the a.m. Therefore we will go to give the patient IV vancomycin and IV cefepime. Patient received Zosyn in the ER but given the renal insufficiency and history of renal transplant and the increase incidence of possible renal failure with vancomycin and Zosyn we will use vancomycin and cefepime. Blood cultures were obtained urine cultures are pending. Monitor patient carefully. Principal Diagnosis UTI Discharge Exam The patient is awake, alert and oriented 3, well developed and well nourished, normocephalic and atraumatic, lying in bed and in no acute distress. HEENT--PERRL, EOMI, mucous membranes and oropharynx mildly dry Neck--supple. No JVD. No bruits. Thyroid normal, trachea midline, no adenopathy. Heart--normal S1 and S2. No murmurs, rubs or gallops. Lungs--clear bilaterally, no respiratory distress, no accessory muscle use. Abdomen--normal bowel sounds and soft. Extremities--no cyanosis or clubbing. No edema. Dermatologic--normal skin turgor, normal color, no abnormal lymph nodes, no rash. Neurologic--cranial nerves II through XII grossly intact. Rheumatologic--normal range of motion. Psychiatric--normal affect. Discharge Data Allergies Allergy/AdvReac Type Severity Reaction Status Date / Time Iodinated Contrast Media Allergy Intermediate Sneezing Verified 03/25/24 18:47 and breaks out into a rash doxycycline AdvReac Intermediate Vomiting Verified 03/25/24 18:47 metformin AdvReac Intermediate Gastrointestinal Verified 03/25/24 18:47 Upset Consultations 04/23/24 21:39 ED Decision to Admit Stat Hospital Course (1) Complicated urinary tract infection: Patient presents to the hospital on account of fever and some mild abdominal pain. Found to have evidence of UTI on urinalysis Urine cultures obtained, growing E coli The ED physician reached out to her transplant physician who recommends continuing Prograf, obtaining Prograf level but holding the CellCept Initially given a dose of vancomycin and cefepime, on account of bad renal function, will hold vancomycin and continue cefepime Will discharge on PO Ciprofloxacin Patient has infusion at the cancer infusion center tomorrow (2) Renal transplant, status post: Status post kidney transplant November 2023. Follows with [facility] transplant team. This is secondary to end-stage renal disease was hemodialysis dependent but no longer posttransplant. Patient appears to have resultant CKD stage III Continue Prograf, hold CellCept Obtain Prograf level (3) MGUS (monoclonal gammopathy of unknown significance): Continue outpatient follow-up (4) Liver transplant recipient: (5) Fever: Plan d/c home Total Time Total Time Spent Total Time Spent (In Minutes): 35 Discharge Plan Discharge Items Patient Disposition: Home - Self-Care Reason For Visit: FEVER Discharge Diagnosis: UTI Activity: Resume your previous activity Non-emergency contact: Primary Care Provider and Oncologist Call non-emergency contact if: you have any medication questions Follow-up/Referrals: Tammy Topete PA-C [Physician Radiology Technologist] - 05/02/24 11:00 am ([facility] did not have any appointments. ) She Davis DO [Primary Care Provider] - ([facility] does not have any appointments until May 15, 2024. We made a F/U appointment for you at [place] [id number] [facility], [place] with Tammy Topete. ) Diet: Regular Addtl Attending Provider Instructions: please make appointment to follow up with your oncologist Pending Studies at Discharge: No Stand-Alone Forms: My [employer], Smoking Cessation Medications and DC Order Prescriptions: New ciprofloxacin HCl 250 mg tablet 250 mg PO BID 5 Days Qty: 10 0RF Continued solifenacin [Vesicare] 5 mg tablet 5 mg PO QAM Qty: 90 2RF (DME) Dexcom G7 Sensor Device See Rx Instructions .Route Rx Instructions: As directed (DME) miscellaneous medical supply Liquid See Rx Instructions .Route Qty: 1 0RF Rx Instructions: 1L normal saline, 250 cc/hr SPS (with sorbitol) 15-20 gram/60 mL suspension 60 ml PO DAILY valganciclovir 450 mg tablet 900 mg PO DAILY sodium bicarbonate 650 mg Tablet 1,300 mg PO BID 30 Days Qty: 120 0RF amoxicillin 250 mg capsule 250 mg PO BID 30 Days Qty: 60 0RF pantoprazole 40 mg tablet,delayed release (DR/EC) 40 mg PO QAM insulin lispro 100 unit/mL Insulin Pen 1 sliding scale dose SUBCUT USEASDIRECTD tacrolimus [Prograf] 1 mg capsule 1 mg PO UD Rx Instructions: TAKES 2 MG QAM, THEN 1 MG QHS Discontinued Lokelma 10 gram Powder In Packet 10 g PO BID 30 Days Qty: 30 0RF Discharge Orders: Discharge Order (Routine); Ordered 04/25/24 Ordered By: Lei Garcia Admission Data Admit Date/Time: 04/23/24 22:05 Attending Provider: Lei Garcia Admit Provider: Pepe Mauro Primary Care Provider: She Davis Other Providers: Pepe Mauro Other Interventions: Discharge Summary Assessment (RN) Last Done: 04/25/24 10:28 Coding Level of Care Code 88509 INP/OBS DISCH >30 MIN Diagnoses Complicated urinary tract infection N39.0 Renal transplant, status post Z94.0 MGUS (monoclonal gammopathy of unknown significance) D47.2 Liver transplant recipient Z94.4 Fever R50.9 Time Spent (min) 35
[2024-04-25] MEDS: HEPARIN 100 UNIT/ML 5ML FLUSH FLUSH STA (11:31)
== END 2024-04-25 12:14 | disposition home or self-care (01) | DRG 690 ==
LOC: ED 19:03 → SUATTDRO 22:05 → EDINP 22:05 → 1E 22:54

== ENCOUNTER 2024-06-07 11:00 | Inpatient (IN) ==
[2024-06-07 11:49] LABS: Appearance Urine Clear (Clear); Bilirubin Urine Negative (Negative); Blood Urine Negative (Negative); Color Urine Yellow; Glucose Urine UA 3+ (Negative); Ketones Urine Trace (Negative); Leukocyte Esterase Urine Negative (Negative); Nitrite Urine Negative (Negative); Protein Urine Negative (Negative); Specific Gravity Urine 1.026 (1.000-1.030); Urobilinogen Urine Negative (Negative); pH Urine 5.5 (4.5-7.5)
--- NOTE | 2024-06-07 12:00 | Emergency Department Note ---
Impression & Plan Hyperglycemia, Hyperkalemia, Dehydration, S/P kidney transplant, MADELEINE (acute kidney injury) ED Provider Note ED Provider Note NAME: JULIOCESAR LU AGE:64 SEX: Female : 1960 ARRIVES VIA: Private vehicle INFORMANT: Patient ED PROVIDER(s): Shakira Espinosa DO CHIEF COMPLAINT: Referred from [facility] HPI: This is a 64-year-old female sent from [facility] this morning where she had been receiving an infusion as part of her treatment for transplant related hemolytic uremic syndrome. I did receive a call from Dr. Ba regarding this patient prior to her arrival. Unfortunately according to the hospitalist team there were no available telemetry beds for her to be a direct admit. Patient underwent kidney transplant back in November of this year at [facility]. Patient states she does not have a local fresh foods technician. Patient states she has not been checking her blood glucose levels in several days. She states she does have a Dexcom meter but has not been wearing it and she has not been feeling well. She states she has not had an appetite but has not had any overt vomiting. She states minimal oral intake over the last several days. She denies any diarrhea or change in urine. She denies any recent cough or cold symptoms. She states last week she did have 1 isolated fever, however none since. She states no difficulty with or adverse side effects to her infusion this morning. PAST MEDICAL HISTORY:See Below PAST SURGICAL HISTORY:See Below FAMILY HISTORY:See Below SOCIAL HISTORY:See Below HOME MEDICATIONS:See Below ALLERGIES:See Below VITALS:See Below PHYSICAL EXAMINATION: GENERAL: alert, well appearing, well nourished, no distress, non-toxic EYE EXAM: normal conjunctiva, PERRL and EOM's grossly intact OROPHARYNX: no exudate, no erythema, lips, buccal mucosa, and tongue normal and mucous membranes are moist NECK: supple, no nuchal rigidity, no adenopathy, non-tender LUNGS: Clear to auscultation. Normal chest wall mechanics, no w/r/r HEART: no murmurs, S1 normal and S2 normal ABDOMEN: abdomen soft, non-tender, normo-active bowel sounds, no masses, no rebound or guarding. BACK: Back is symmetrical on inspection and there is no deformity, no midline tenderness, no CVA tenderness. SKIN: no rashes, petechiae, orbruising UPPER EXTREMITIES: upper extremities are grossly normal. FROM, nml pulses b/l. LOWER EXTREMITIES: No pitting edema. FROM, nml pulses b/l. NEURO EXAM: Normal sensorium, cranial nerves II-XII grossly intact, normal speech, no facial droop,nogross weakness of arms, no gross weakness of legs. Gross sensation intact. No ataxia. Vital Signs: reviewed and remarkable Differential Diagnosis: Medication ADR, MADELEINE, dehydration, DKA, worsening HUS, hyperglycemia, occult infection, as well as others were considered MEDICAL DECISION MAKING: This is a 64-year-old female sent over from the [facility] office following an infusion due to concern for abnormal outpatient labs. Patient being treated for hemolytic uremic syndrome. Patient admits to not checking her blood sugar daily and feeling very dehydrated. On review of labs drawn as an outpatient patient noted to have hyperglycemia, hyponatremia, MADELEINE, and hyperkalemia. We did attempt to try make the patient was a direct admit however due to no available med telemetry beds, patient presented to the emergency room. Labs drawn and sent, IV established, EKG performed interpreted me at bedside and patient monitored on telemetry. Patient had no focal complaints at bedside. She stated she felt tired and was thirsty. She was started on IV fluids. Repeat labs here did show slight improvement in blood glucose level. No EKG changes noted given her hyperkalemia. Upon review of EMR, patient has had potassium, sodium, and creatinine levels this elevated previously. No evidence of DKA. Case discussed with the hospitalist team for additional evaluation and management. Procalcitonin added as a precaution given transplant status on her mention of a fever last week. This was still pending at time of discussion. Patient vital signs were stable throughout, patient afebrile on arrival here. Consultation(s): 1240: Discussed with Dr. Mauro, monitoring hospitalist team, for additional evaluation and management. ER Treatment Provided: See below Diagnostics Interpreted By Me: -ECG: sinus bradycardia at 51, left axis, nml intervals, inverted T in III, aVF, no other acute ST/T wave changes -Cardiac Monitoring: An order was placed for continuous cardiac monitoring. The monitor shows a rate of 53 with sinus bradycardia rhythm. -Laboratory studies: As stated above and show below. Triage Nursing Note Reviewed Prior/Outside Records Reviewed -reviewed office note from today from [facility]. [facility] Past Med/Surg History Problem List (Updated 06/07/24 @ 17:02 by Shakira Espinosa DO) MADELEINE (acute kidney injury) (Acute) S/P kidney transplant (Acute) -donor kidney transplant recipient Dehydration (Acute) Hyperkalemia (Acute) Hyperglycemia (Acute) Fever Hypomagnesemia (Acute) Dyspnea Leukopenia (Acute) Acute hyperkalemia (Acute) Thrombotic microangiopathy Renal transplant, status post (Acute) History of colon polyps History of compression fracture of vertebral column (05/14/22) lumbar vertebra compression fracture History of vertebral fracture (~03/12/19) L1-L3 stress fractures Abnormal CT scan of lung Morbid obesity with BMI of 40.0-44.9, adult Neutropenia Pancytopenia Peripheral edema Diarrhea Proteinuria Ambulatory dysfunction (Acute) Lumbar pain with radiation down both legs Urinary incontinence, urge Diabetes mellitus with neurological manifestations, uncontrolled (Chronic) Diabetes 1.5, managed as type 1 (Chronic) Trigger finger of right hand Trigger finger of left hand Environmental allergies Hx of compression fracture of spine L1 and L4 Low back pain Anemia aplastic aregenerative (Acute) Dyslipidemia (Chronic) Enthesopathy of foot (Chronic) Gastroparesis (Acute) 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) Microscopic hematuria (Acute) Diabetic neuropathy (Chronic) Vitamin D deficiency (Chronic) Osteoarthritis Primary biliary cirrhosis GERD (gastroesophageal reflux disease) Cholestatic pruritus Anemia of chronic disease (Chronic) Plaque psoriasis Hypertension MGUS (monoclonal gammopathy of unknown significance) (Chronic) Osteopenia (Acute) Peripheral neuropathy (Chronic) Liver transplant recipient (Chronic ~10/13/18) [facility] 10/13/18 Bilateral foot-drop (Chronic) 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 Osteoarthritis GERD (gastroesophageal reflux disease) Surgical History Hx of esophagogastroduodenoscopy Hx of appendectomy Kidney transplant recipient (~11/2023) right side, [facility], follows with Keesha Lopez S/P arteriovenous (AV) graft placement LUE - not currently in use History of lumbar laminectomy for spinal cord decompression (04/22/21) L3-L5 laminectomy History of total abdominal hysterectomy and bilateral salpingo-oophorectomy History of section X 2 History of colonoscopy History of tooth extraction Nasal polyp X 3 REMOVED History of tonsillectomy Family History Unknown Adopted Social History Smoking Status: Never smoker Second Hand Exposure: No; Do You Dip or Chew Tobacco: No; Hx Alcohol Use: No Hx Substance Use: No Preferred Language: Malian Communication Ability: Effective Visual Impairment: No Limitations Hearing Ability: Normal Supervisor Laundry Required: No Beliefs That Will Affect Care: None marital status: Current Living Situation: Spouse Current Living Situation Comment: Lives at home with , son, and daughter current occupational status: employed How many Children do You have: 3 Feels Safe at Home: Yes Childhood Exposure to Second-Hand Smoke: No Diet: low carbohydrate caffeine: Yes during the past year weight has: remained stable Dental Care, Regularly: No Physical Activity Frequency: Daily Seatbelt Use: always Sunscreen Use: No Assistive Devices: Brace/Splint/Immobilizer, Cane and Walker Allergies Allergies Allergy/AdvReac Type Severity Reaction Status Date / Time Iodinated Contrast Media Allergy Intermediate Sneezing Verified 06/07/24 12:18 and breaks out into a rash doxycycline AdvReac Intermediate Vomiting Verified 06/07/24 12:18 metformin AdvReac Intermediate Gastrointestinal Verified 06/07/24 12:18 Upset Home Meds Home Medications Medication Instructions Recorded Confirmed blood-glucose sensor (Dexcom G7 08/17/23 04/26/24 Sensor device) insulin lispro 100 unit/mL 1 sliding scale dose subcut 12/11/23 06/07/24 subcutaneous pen USEASDIRECTD tacrolimus 1 mg capsule, 1 mg PO UD 01/04/24 06/07/24 immediate-release (Prograf) sodium zirconium cyclosilicate 10 10 g PO DAILY 05/03/24 06/07/24 gram oral powder packet (Lokelma) amoxicillin 250 mg capsule 250 mg PO BID 06/07/24 06/07/24 metoprolol succinate 25 mg 25 mg PO QAM 06/07/24 06/07/24 tablet,extended release 24 hr mycophenolate sodium 180 mg 180 mg PO BID 06/07/24 06/07/24 tablet,delayed release sodium bicarbonate 650 mg tablet 1,300 mg PO BID 06/07/24 06/07/24 Previous Rx's Medication Instructions Recorded miscellaneous medical supply #1 L 01/05/24 solifenacin 5 mg tablet (Vesicare) 5 mg PO QAM #90 tabs 03/16/24 pantoprazole 40 mg tablet,delayed 40 mg PO QAM #90 tabs 05/15/24 release Results & Data (ED) Vital Signs Vital Signs - 24 hr 06/07/24 11:06 06/07/24 12:11 Temperature 36.3 C L Temperature Source Oral Pulse Rate 51 L 54 L Respiratory Rate 18 Respiratory Effort / Characteristics Non-Labored Spontaneous Respiratory Depth Normal Respiratory Pattern Regular Blood Pressure 111/55 L Blood Pressure Mean 73 Pulse Oximetry 100 Oxygen Delivery Method Room Air Sepsis Recent Fever Within 48 Hours Yes Sepsis New/Unexplained Change in Mental Status N/A Sepsis Action Taken by Nursing No Action Required Laboratory Data 06/07/24 11:20 Lab Results 06/07/24 06/07/24 Range/Units 11:20 11:30 Sodium 126 L (136-145) mmol/L Potassium 5.9 H (3.5-5.1) mmol/L Chloride 96 L (98-107) mmol/L Carbon Dioxide 21 (21-32) mmol/L Anion Gap 9 (3-11) BUN 40 H (6-23) mg/dl Creatinine 2.13 H (0.6-1.2) mg/dl Est Cr Clr Drug Dosing Not Reportable Est GFR ( Amer) 28.0 ml/min Est GFR (Non-Af Amer) 24.2 ml/min BUN/Creatinine Ratio 18.8 (10-20) Glucose 663 H* (70-99(Fasting)) mg/dl POC Glucose > 600 H* (70-99) mg/dl Calcium 9.1 (8.6-10.3) mg/dl Total Bilirubin 1.0 (0.2-1.0) mg/dl AST 13 (13-39) U/L ALT 9 (7-52) U/L Alkaline Phosphatase 97 (34-104) U/L Total Protein 6.3 (6.0-8.3) gm/dl Albumin 3.5 (3.4-5.0) gm/dl Globulin 2.8 (2.5-4.0) gm/dl Albumin/Globulin Ratio 1.3 (0.9-2) Procalcitonin 0.79 H (0-0.5) ng/ml Urine Color Yellow Urine Appearance Clear (Clear) Urine pH 5.5 (4.5-7.5) Ur Specific Alexander 1.026 (1.000-1.030) Urine Protein Negative (Negative) Urine Glucose (UA) 3+ H (Negative) Urine Ketones Trace H (Negative) Urine Blood Negative (Negative) Urine Nitrite Negative (Negative) Urine Bilirubin Negative (Negative) Urine Urobilinogen Negative (Negative) Ur Leukocyte Esterase Negative (Negative) Administered Medications Lactated Ringer's (Lr) 1,000 mls @ 125 mls/hr IV .Q8H HYACINTH Stop: 06/08/24 06:59 Last Admin: 06/07/24 16:13 Dose: 125 mls/hr Documented By: DAVE Insulin Aspart (Insulin Aspart Per Unit Charge) 0 units SC Q2H HYACINTH Stop: 07/07/24 13:44 Last Admin: 06/07/24 16:46 Dose: 6 units Documented By: DAVE Co-signed By: MARIS Admin: 06/07/24 14:40 Dose: 6 units Documented By: DAVE Co-signed By: MARIS Discontinued Medications Sodium Chloride (Nss) 1,000 mls @ 125 mls/hr IV .Q8H HYACINTH Stop: 07/07/24 11:14 Last Infusion: 06/07/24 14:05 Dose: Infused Documented By: Admin: 06/07/24 12:03 Dose: 125 mls/hr Documented By: REUBEN Calcium Gluconate () 1,000 mg in 60 mls @ 240 mls/hr IV NOW STA Stop: 06/07/24 12:50 Last Infusion: 06/07/24 13:30 Dose: Infused Documented By: Admin: 06/07/24 13:04 Dose: 240 mls/hr Documented By: ALONDRA Lactated Ringer's (Lr) 1,000 mls @ 999 mls/hr IV .Q1H1M ONE Stop: 06/07/24 13:33 Last Infusion: 06/07/24 14:05 Dose: Infused Documented By: Admin: 06/07/24 13:04 Dose: 999 mls/hr Documented By: ALONDRA Lactated Ringer's (Lr) 1,000 mls @ 999 mls/hr IV .Q1H1M ONE Stop: 06/07/24 13:50 Last Infusion: 06/07/24 15:05 Dose: Infused Documented By: Admin: 06/07/24 13:05 Dose: 999 mls/hr Documented By: ALONDRA Insulin Glargine (Lantus Per Unit Charge) 10 units SQ ONE ONE Stop: 06/07/24 16:31 Last Admin: 06/07/24 16:47 Dose: 10 units Documented By: DAVE Co-signed By: MARIS Insulin Human Regular (Novolin-R Insulin Per Unit Charge) 10 units IV NOW STA Stop: 06/07/24 12:39 Last Admin: 06/07/24 13:04 Dose: 10 units Documented By: ALONDRA Co-signed By: CAMILLA Miscellaneous (Patient's Height &/Or Weight Needed) 1 each N/A NOW STA Stop: 06/07/24 12:56 Last Admin: 06/07/24 13:12 Dose: Not Given Documented By: AMS Sodium Zirconium Cyclosilicate (Sodium Zirconium Cyclosilicate 10 Gm Packet) 10 gm PO NOW STA Stop: 06/07/24 12:53 Last Admin: 06/07/24 16:14 Dose: 10 gm Documented By: DAVE Discharge Plan Visit Data Chief Complaint: Hyperglycemia Stated Complaint: HIGH BLOOD SUGAR ED Provider: Shakira Espinosa Discharge Problem: Hyperglycemia, Hyperkalemia, Dehydration, S/P kidney transplant, MADELEINE (acute kidney injury) Patient Disposition: Admitted As Inpatient Discharge Instructions Interventions: ED Discharge Assessment Last Done: 06/07/24 13:59
[2024-06-07] MEDS: SODIUM CHLORIDE 0.9% 1,000 ML IV SCH (12:03)
[2024-06-07 12:09] LABS: Alanine Aminotransferase 9 U/L (7-52); Albumin Globulin Ratio 1.3 (0.9-2); Albumin Level 3.5 gm/dl (3.4-5.0); Alkaline Phosphatase 97 U/L (34-104); Anion Gap 9 (3-11); Aspartate Aminotransferase 13 U/L (13-39); BUN Creatinine Ratio 18.8 (10-20); Blood Urea Nitrogen 40 mg/dl (6-23); Calcium 9.1 mg/dl (8.6-10.3); Carbon Dioxide 21 mmol/L (21-32); Chloride 96 mmol/L (98-107); Est GFR (Non-African American) 24.2 ml/min; Globulin 2.8 gm/dl (2.5-4.0); Glucose 663 mg/dl (70-99(Fasting)); Potassium 5.9 mmol/L (3.5-5.1); Sodium 126 mmol/L (136-145); Total Protein 6.3 gm/dl (6.0-8.3)
[2024-06-07] MEDS ORDERED: INSULIN HUMAN REGULAR PER UNIT 10 UNITS in SYRINGE 9.9 ML IV STA (12:32)
[2024-06-07] MEDS ORDERED: NovoLIN-R INSULIN PER UNIT CHARGE SQ STA (12:37)
[2024-06-07] MEDS ORDERED: GLUCAGON FOR INJ 1 MG VIAL SQ PRN (12:39)
[2024-06-07] MEDS ORDERED: DEXTROSE 50% 50 ML SYRINGE IV PRN (12:39)
[2024-06-07] MEDS ORDERED: GLUCOSE 10 TAB/TUBE PO PRN (12:39)
[2024-06-07] MEDS ORDERED: GLUCOSE 40% GEL 15 GM TUBE PO PRN (12:39)
[2024-06-07] MEDS ORDERED: CARBOHYDRATES FOR HYPOGLYCEMIA PO PRN (12:39)
[2024-06-07] MEDS ORDERED: PHARMACY GLYCEMIC MGMT CONSULT PRN (12:39)
--- NOTE | 2024-06-07 13:00 | History & Physical Report ---
Date of Service June 07, 2024 Assessment & Plan (1) Dehydration: Plan: Assessment: 1. Hypovolemia and dehydration. The patient has dry mucous membranes dry skin. She has some acute renal insufficiency. [place] hydrate aggressively. Her p.o. intake has been poor this week per the patient. 2. Acute kidney injury status postrenal transplant at [facility] in November 2023. Creatinine is 2.1. Provide to hydrate we suspect this will improve. However we will have nephrology see her locally given her transplant history and acute kidney injury. Will do CellCept levels. 3. Uncontrolled diabetes mellitus with blood sugars in the 6 and 700s. Volume resuscitation first. Insulin therapy has been introduced. Will reassess her glycemic control here in a few hours by lab as well as by Accu-Chek. Urine ketones are negative. She has a normal anion gap. There is no evidence of DKA at this point. I see no need for IV insulin infusion I think she will improve dramatically with volume resuscitation. 4. 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 5. Hyperkalemia multifactorial secondary to hypovolemia as well as acute kidney injury. Calcium gluconate been ordered as well as Lokelma. Will reassess her potassium by lab here in several hours. Also hydrate aggressively. In addition to insulin therapy will aid in the treatment of the hyperkalemia. 6. GERD. Continue Protonix. 7. 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 8. Hypertension. Continue home meds. 9. Pancytopenia chronic secondary to her oncological issues. Stable. 10. Pseudohyponatremia secondary to the significant hyperglycemia. Will monitor her sodium levels. Plan: As described above. Please refer to orders for further planning. I suspect at least 2 overnight stay to get her regulated back on insulin therapy and get her electrolyte and glycemic control adequate for discharge. Will await nephrology input as well. History of Present Illness Chief Complaint: Hyperglycemia Primary Care Provider: She Davis, Pleasant but unfortunate 64-year-old female who is status post liver transplant and renal transplant with a history of HUS as well. She is under the treatment of the cancer center here. She went there for an infusion today and laboratory studies were obtained and her blood glucose was over 700 with a sodium of 124. Potassium was 5.6. The patient was directed to the ER for further evaluation and treatment. In the ER she had an EKG which was reassuring. Repeat laboratory studies in the ER demonstrated a potassium of 5.9. A creatinine of 2.1.. Laboratory studies in the ER demonstrated a creatinine of 2.1, potassium 5.9 and a blood glucose of 663. Course in the ER she received IV saline. And we are notified for admission. Admitting the patient going to give 2 L of lactated Ringer's. Will start her on some calcium gluconate for her hyper kalemia as well as Lokelma.. Will going to repeat some labs at 5 PM. Get the patient admitted to a telemetry unit. Urinalysis is negative for infection her CBC looks stable with some leukopenia 2.76 and some anemia of chronic disease 11.3. On further history taking the patient does report not taking the best care of herself over the last week she has been just tired of dealing with illnesses. She really has not been taking her insulins as directed etc. She states he has no thoughts of harming herself she wants to live and she has multiple grandchildren she is involved with. She states that she has had a bad week last week and she feels this is why her numbers are the way they are and she is probably absolutely correct. Allergies Allergy/AdvReac Type Severity Reaction Status Date / Time Iodinated Contrast Media Allergy Intermediate Sneezing Verified 06/07/24 12:18 and breaks out into a rash doxycycline AdvReac Intermediate Vomiting Verified 06/07/24 12:18 metformin AdvReac Intermediate Gastrointestinal Verified 06/07/24 12:18 Upset Home Medications Medication Instructions Recorded Confirmed Type blood-glucose sensor (Dexcom G7 08/17/23 04/26/24 History Sensor device) insulin lispro 100 unit/mL 1 sliding scale dose subcut 12/11/23 06/07/24 History subcutaneous pen USEASDIRECTD tacrolimus 1 mg capsule, 1 mg PO UD 01/04/24 06/07/24 History immediate-release (Prograf) miscellaneous medical supply #1 L 01/05/24 04/26/24 Rx solifenacin 5 mg tablet (Vesicare) 5 mg PO QAM #90 tabs 03/16/24 06/07/24 Rx sodium zirconium cyclosilicate 10 10 g PO DAILY 05/03/24 06/07/24 History gram oral powder packet (Lokelwv) pantoprazole 40 mg tablet,delayed 40 mg PO QAM #90 tabs 05/15/24 06/07/24 Rx release amoxicillin 250 mg capsule 250 mg PO BID 06/07/24 06/07/24 History metoprolol succinate 25 mg 25 mg PO QAM 06/07/24 06/07/24 History tablet,extended release 24 hr mycophenolate sodium 180 mg 180 mg PO BID 06/07/24 06/07/24 History tablet,delayed release sodium bicarbonate 650 mg tablet 1,300 mg PO BID 06/07/24 06/07/24 History Past Med/Surg History Problem List (Updated 06/07/24 @ 12:00 by Shakira Espinosa, DO) Dehydration (Acute) Hyperkalemia (Acute) Hyperglycemia (Acute) Fever Hypomagnesemia (Acute) Dyspnea Leukopenia (Acute) Acute hyperkalemia (Acute) Thrombotic microangiopathy Renal transplant, status post (Acute) History of colon polyps History of compression fracture of vertebral column (05/14/22) lumbar vertebra compression fracture History of vertebral fracture (~03/12/19) L1-L3 stress fractures Abnormal CT scan of lung Morbid obesity with BMI of 40.0-44.9, adult Neutropenia Pancytopenia Peripheral edema Diarrhea Proteinuria Ambulatory dysfunction (Acute) Lumbar pain with radiation down both legs Urinary incontinence, urge Diabetes mellitus with neurological manifestations, uncontrolled (Chronic) Diabetes 1.5, managed as type 1 (Chronic) Trigger finger of right hand Trigger finger of left hand Environmental allergies Hx of compression fracture of spine L1 and L4 Low back pain Anemia aplastic aregenerative (Acute) Dyslipidemia (Chronic) Enthesopathy of foot (Chronic) Gastroparesis (Acute) 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) Microscopic hematuria (Acute) Diabetic neuropathy (Chronic) Vitamin D deficiency (Chronic) Osteoarthritis Primary biliary cirrhosis GERD (gastroesophageal reflux disease) Cholestatic pruritus Anemia of chronic disease (Chronic) Plaque psoriasis Hypertension MGUS (monoclonal gammopathy of unknown significance) (Chronic) Osteopenia (Acute) Peripheral neuropathy (Chronic) Liver transplant recipient (Chronic ~10/13/18) [facility] 10/13/18 Bilateral foot-drop (Chronic) 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) Degenerative disc disease, lumbar (Chronic) Medical History Limb alert care status LUE AV fistual Poor venous access frequent infusions Hx of respiratory syncytial virus infection (~12/2023) admitted at [facility] x 5 days, History of COVID-19 (~10/2023) admitted at [facility] x 1 week, resolved DM type 2 (diabetes mellitus, type 2) IDDM COPD (chronic obstructive pulmonary disease) Follows Pulmonology in [facility] [place] Osteoarthritis GERD (gastroesophageal reflux disease) Surgical History Hx of esophagogastroduodenoscopy Hx of appendectomy Kidney transplant recipient (~11/2023) right side, [facility], follows with Keesha Lopez S/P arteriovenous (AV) graft placement LUE - not currently in use History of lumbar laminectomy for spinal cord decompression (04/22/21) L3-L5 laminectomy History of total abdominal hysterectomy and bilateral salpingo-oophorectomy History of section X 2 History of colonoscopy History of tooth extraction Nasal polyp X 3 REMOVED History of tonsillectomy Family History Unknown Adopted Social History Smoking Status: Never smoker Second Hand Exposure: No; Do You Dip or Chew Tobacco: No; Hx Alcohol Use: No Hx Substance Use: No Preferred Language: Belarusian Communication Ability: Effective Visual Impairment: No Limitations Hearing Ability: Normal Health Unit Supervisor Required: No Beliefs That Will Affect Care: None marital status: Current Living Situation: Spouse Current Living Situation Comment: Lives at home with , son, and daughter current occupational status: employed How many Children do You have: 3 Feels Safe at Home: Yes Childhood Exposure to Second-Hand Smoke: No Diet: low carbohydrate caffeine: Yes during the past year weight has: remained stable Dental Care, Regularly: No Physical Activity Frequency: Daily Seatbelt Use: always Sunscreen Use: No Assistive Devices: Brace/Splint/Immobilizer, Cane and Walker Review of Systems Review of Systems: A 10 point review of system was obtained and unless otherwise stated here or in history of present illness are negative and noncontributory to chief complaint. Physical Exam Physical Exam: In General: In general this is a 64-year-old female she is alert and oriented x 3. She is in no acute distress. She interacts appropriately. HEENT: Normocephalic atraumatic pupils are equal round and reactive to light bilaterally. No scleral icterus no conjunctival injection external auditory canals are patent septum is in the midline nose is without discharge oral mucosa is pink dry without lesion-mucous membranes are extremely parched NECK: Supple no rigidity no lymphadenopathy no thyromegaly no carotid bruits no JVD no masses. HEART: Regular rate and rhythm I do not appreciate any ectopy or rub. No murmur. [id number] right chest wall which is actively accessed. LUNGS: Clear to auscultation bilaterally and anteriorly with no evidence of adventitious sounds/wheezes rales or rhonchi. ABDOMEN: Soft nontender, no rebound, no peritoneal signs, positive bowel sounds, no appreciable organomegaly. EXTREMITIES: Intact, no peripheral cyanosis, clubbing or edema. Strength is 5 out of 5 in extremities x4, no pathological reflexes. NEUROLOGICAL: Cranial nerves II through XII are grossly intact with no focal deficit elicited upon examination. No tremor. Results & Data Results & Data Vital Signs (Past 12 Hours) Vital Signs Temp Pulse Resp BP Pulse Ox O2 Del Method 06/07/24 12:11 54 L 06/07/24 11:06 36.3 C L 51 L 18 111/55 L 100 Room Air Code Status & VTE Plan Code Status CODE STATUS: Full code. I personally discussed with patient today at the bedside. VTE Prophylaxis Plan VTE Prophylaxis will be ordered: Yes PG Care Time/CCT Total # of Minutes Spent Total Time Spent with Patient: Total time spent is greater than 50% in coordination of care (as documented) at patient's floor/unit and/or counseling patient: Coding Level of Care Code 02615 INT INP/OBS CARE 3/75MIN Diagnoses Dehydration E86.0
[2024-06-07] MEDS: LACTATED RINGER'S 1,000 ML IV ONE ×2 (13:04→13:05)
[2024-06-07] MEDS: NovoLIN-R INSULIN PER UNIT CHARGE IV STA (13:04)
[2024-06-07] MEDS: CALCIUM GLUCONATE 1,000 MG/60 ML BAG IV STA (13:04)
[2024-06-07] MEDS: Patient's HEIGHT &/or WEIGHT Needed STA (13:12)
[2024-06-07] MEDS ORDERED: TACROLIMUS 1 MG CAP PO SCH (14:34)
[2024-06-07] MEDS: INSULIN ASPART PER UNIT CHARGE SC SCH (14:40)
--- NOTE | 2024-06-07 15:37 | Nephrology Consultation ---
Date of Consultation June 07, 2024 Assessment & Plan (1) -donor kidney transplant recipient: (2) Liver transplant recipient: (3) Dehydration: (4) DM type 2 (diabetes mellitus, type 2): Plan Posttransplant creatinine has been 1.52.0. Kidney function remains relatively stable at this time. Recommend continue current immunosuppressive therapy. Mycophenolate level does not need to be checked. This will not impact current medical care. Hyperkalemia, mild metabolic acidosis and dehydration are all sequela of severe uncontrolled hyperglycemia. Recommend aggressive hydration and insulin therapy. Although primary service is already prescribed Lokelma, expect potassium will correct with insulin and bicarbonate therapy. Recommend treating patient as if she has DKA with aggressive hydration IV insulin therapy and frequent laboratory checks. Defer management to hospitalist service. Patient will require follow up with Dr. Acosta following hospital discharge History of Present Illness Reason for Consultation: DDRT Attending Physician: Pepe Mauro, PhD, DO History of Present Illness Mrs. Hendricks is a 64 year old white female who is seen at the request of the [facility] hospitalist service for evaluation of hyperkalemia in the setting of DDRT. Information for the HPI is obtained from direct patient interview and review of the medical record. HPI is summarized as follows: Mrs. 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 She required liver transplant 10/18. This was complicated by chronic TMA, CNI nephrotoxicity and hypertensive nephrosclerosis resulting in progressive renal dysfunction/ESKD. Mrs. Hendricks had been on HD under the care of Dr. Acosta. On 11/13/23 Mrs. Hendricks underwent DDKT at [facility] in [place]. There was delayed graft function. Post-transplant Cr has stabilized at 1.5-2.0. Her current immunosuppressive regimen consists of Tacrolimus 2 mg qAM/1mg qPM, MMF 180 mg BID. Her PMH is significant for chronic TMA associated w/ CNI therapy managed w/ Eculizumab q 2weeks, MGUS, IDDM, OA/DDD, spinal stenosis, LUE AVG. [facility]. She reported that she was not feeling well. She stated that she has a Dexcom meter but has not been wearing it and has not been checking her sugar. BSG was > 400 and patient was referred to [facility] for evaluation. Laboratory studies revealed serum potassium 5.9, HCO3 21, creatinine 2.13. Primary service is already instituted therapy with IV fluid, Lokelma, sodium bicarbonate. Allergies Allergy/AdvReac Type Severity Reaction Status Date / Time Iodinated Contrast Media Allergy Intermediate Sneezing Verified 06/07/24 12:18 and breaks out into a rash doxycycline AdvReac Intermediate Vomiting Verified 06/07/24 12:18 metformin AdvReac Intermediate Gastrointestinal Verified 06/07/24 12:18 Upset Home Medications Medication Instructions Recorded Confirmed Type blood-glucose sensor (Dexcom G7 08/17/23 04/26/24 History Sensor device) insulin lispro 100 unit/mL 1 sliding scale dose subcut 12/11/23 06/07/24 History subcutaneous pen USEASDIRECTD tacrolimus 1 mg capsule, 1 mg PO UD 01/04/24 06/07/24 History immediate-release (Prograf) miscellaneous medical supply #1 L 01/05/24 04/26/24 Rx solifenacin 5 mg tablet (Vesicare) 5 mg PO QAM #90 tabs 03/16/24 06/07/24 Rx sodium zirconium cyclosilicate 10 10 g PO DAILY 05/03/24 06/07/24 History gram oral powder packet (Lokelma) pantoprazole 40 mg tablet,delayed 40 mg PO QAM #90 tabs 05/15/24 06/07/24 Rx release amoxicillin 250 mg capsule 250 mg PO BID 06/07/24 06/07/24 History metoprolol succinate 25 mg 25 mg PO QAM 06/07/24 06/07/24 History tablet,extended release 24 hr mycophenolate sodium 180 mg 180 mg PO BID 06/07/24 06/07/24 History tablet,delayed release sodium bicarbonate 650 mg tablet 1,300 mg PO BID 06/07/24 06/07/24 History Patient History Medical History Limb alert care status LUE AV fistual Poor venous access frequent infusions Hx of respiratory syncytial virus infection (~12/2023) admitted at [facility] x 5 days, History of COVID-19 (~10/2023) admitted at [facility] x 1 week, resolved DM type 2 (diabetes mellitus, type 2) IDDM COPD (chronic obstructive pulmonary disease) Follow[facility] Pul[facility] in [facility] Osteoarthritis GERD (gastroesophageal reflux disease) Surgical History Hx of esophagogastroduodenoscopy Hx of appendectomy Kidney transplant recipient (~11/2023) right side, [facility], follows with Keesha Lopez S/P arteriovenous (AV) graft placement LUE - not currently in use History of lumbar laminectomy for spinal cord decompression (04/22/21) L3-L5 laminectomy History of total abdominal hysterectomy and bilateral salpingo-oophorectomy History of section X 2 History of colonoscopy History of tooth extraction Nasal polyp X 3 REMOVED History of tonsillectomy Family History Unknown Adopted Social History Smoking Status: Never smoker Second Hand Exposure: No; Do You Dip or Chew Tobacco: No; Hx Alcohol Use: No Hx Substance Use: No Preferred Language: Frisian Communication Ability: Effective Visual Impairment: No Limitations Hearing Ability: Normal Funeral Driver Required: No Beliefs That Will Affect Care: None marital status: Current Living Situation: Spouse Current Living Situation Comment: Lives at home with , son, and daughter current occupational status: employed How many Children do You have: 3 Feels Safe at Home: Yes Childhood Exposure to Second-Hand Smoke: No Diet: low carbohydrate caffeine: Yes during the past year weight has: remained stable Dental Care, Regularly: No Physical Activity Frequency: Daily Seatbelt Use: always Sunscreen Use: No Assistive Devices: Brace/Splint/Immobilizer, Cane and Walker Review of Systems Constitutional: no fever Eyes: no problem reported Ear, Nose, Mouth, Throat: no problem reported Respiratory: no cough and no dyspnea Cardiovascular: no chest pain Gastrointestinal: no abdominal pain, no nausea, no vomiting and no diarrhea/loose stools Genitourinary: no dysuria Integumentary: no rash Neurologic: no problem reported Physical Exam Constitutional: + frail appearing; not in distress Eyes: PERRL, conjunctivae normal, anicteric sclerae ENMT: external ear and nose normal, oropharynx normal Neck: trachea midline, no thyromegaly Respiratory: able to speak in complete sentences; no respiratory distress Auscultation: lungs clear to auscultation bilaterally Cardiovascular: Rate/Rhythm: regular rate and regular rhythm Extremities: + AV fistula (LUE AVF + bruit) R subclavian a-port Gastrointestinal (Abdomen): normal bowel sounds, soft, nontender, no hepatosplenomegaly (DDRT RLQ NT to palpation) Skin: no rashes, warm and dry Neurologic: Speech / Cognition: normal speech and normal cognition Psychiatric: Affect: euthymic affect Results & Data Vital Signs (Past 12 Hours) Vital Signs Temp Pulse Pulse Resp BP BP Pulse Ox 06/07/24 13:07 51 L 18 116/56 L 97 06/07/24 12:11 54 L 06/07/24 11:06 36.3 C L 51 L 18 111/55 L 100 O2 Del Method 06/07/24 13:07 Room Air 06/07/24 12:11 06/07/24 11:06 Room Air Laboratory Results Laboratory Results Sodium 126 mmol/L (136-145) L 06/07/24 11:20 Potassium 5.9 mmol/L (3.5-5.1) H 06/07/24 11:20 Chloride 96 mmol/L (98-107) L 06/07/24 11:20 Carbon Dioxide 21 mmol/L (21-32) 06/07/24 11:20 Anion Gap 9 (3-11) 06/07/24 11:20 BUN 40 mg/dl (6-23) H 06/07/24 11:20 Creatinine 2.13 mg/dl (0.6-1.2) H 06/07/24 11:20 Est Cr Clr Drug Dosing Not Reportable 06/07/24 11:20 Est GFR ( Amer) 28.0 ml/min 06/07/24 11:20 Est GFR (Non-Af Amer) 24.2 ml/min 06/07/24 11:20 BUN/Creatinine Ratio 18.8 (10-20) 06/07/24 11:20 Glucose 663 mg/dl (70-99(Fasting)) H* 06/07/24 11:20 POC Glucose 460 mg/dl (70-99) H* 06/07/24 14:30 Calcium 9.1 mg/dl (8.6-10.3) 06/07/24 11:20 Total Bilirubin 1.0 mg/dl (0.2-1.0) 06/07/24 11:20 AST 13 U/L (13-39) 06/07/24 11:20 ALT 9 U/L (7-52) 06/07/24 11:20 Alkaline Phosphatase 97 U/L (34-104) 06/07/24 11:20 Total Protein 6.3 gm/dl (6.0-8.3) 06/07/24 11:20 Albumin 3.5 gm/dl (3.4-5.0) 06/07/24 11:20 Globulin 2.8 gm/dl (2.5-4.0) 06/07/24 11:20 Albumin/Globulin Ratio 1.3 (0.9-2) 06/07/24 11:20 Procalcitonin 0.79 ng/ml (0-0.5) H 06/07/24 11:20 Urine Color Yellow 06/07/24 11:30 Urine Appearance Clear (Clear) 06/07/24 11:30 Urine pH 5.5 (4.5-7.5) 06/07/24 11:30 Ur Specific [place] 1.026 (1.000-1.030) 06/07/24 11:30 Urine Protein Negative (Negative) 06/07/24 11:30 Urine Glucose (UA) 3+ (Negative) H 06/07/24 11:30 Urine Ketones Trace (Negative) H 06/07/24 11:30 Urine Blood Negative (Negative) 06/07/24 11:30 Urine Nitrite Negative (Negative) 06/07/24 11:30 Urine Bilirubin Negative (Negative) 06/07/24 11:30 Urine Urobilinogen Negative (Negative) 06/07/24 11:30 Ur Leukocyte Esterase Negative (Negative) 06/07/24 11:30 PG Care Time/CCT Total # of Minutes Spent Total Time Spent with Patient: Total time spent is greater than 50% in coordination of care (as documented) at patient's floor/unit and/or counseling patient: Coding Level of Care Code 82990 IN/OBS CONSULT LVL 5,80M Diagnoses -donor kidney transplant recipient Z94.0 Liver transplant recipient Z94.4 Dehydration E86.0 DM type 2 (diabetes mellitus, type 2) E11.9
--- NOTE | 2024-06-07 15:42 | Electrocardiogram Report ---
Test Reason : Blood Pressure : */* mmHG Vent. Rate : 51 BPM Atrial Rate : 51 BPM P-R Int : 152 ms QRS Dur : 88 ms QT Int : 522 ms P-R-T Axes : 55 -41 -4 degrees QTcB Int : 481 ms Sinus bradycardia Left axis deviation Abnormal ECG When compared with ECG of 03-May-2024 19:07, Borderline criteria for Lateral infarct are no longer Present T wave inversion now evident in Inferior leads T wave amplitude has increased in Anterolateral leads Confirmed by Johnny Obrien ([id number]) on 06/07/2024 3:42:13 PM Referred By: Confirmed By: Johnny Obrien
[2024-06-07] MEDS: LACTATED RINGER'S 1,000 ML IV SCH (16:13)
[2024-06-07] MEDS: SODIUM ZIRCONIUM CYCLOSILICATE 10 GM PACKET PO STA (16:14)
[2024-06-07] MEDS ORDERED: LANTUS PER UNIT CHARGE SQ ONE (16:30)
[2024-06-07] MEDS: LANTUS PER UNIT CHARGE SQ ONE (16:47)
[2024-06-07 17:37] LABS: Calcium 9.1 mg/dl (8.6-10.3); Magnesium 1.6 mg/dl (1.7-2.4); Potassium 5.1 mmol/L (3.5-5.1)
[2024-06-07 17:58] LABS: BUN Creatinine Ratio 20.1 (10-20); Creatinine Clr Calc Pharmacy 25.8 ml/min; Est GFR (African American) 33.5 ml/min; Est GFR (Non-African American) 28.9 ml/min
[2024-06-07] MEDS: SODIUM BICARBONATE 650 MG TAB PO SCH (20:24)
[2024-06-07] MEDS: AMOXICILLIN 250 MG CAP PO SCH (20:24)
[2024-06-07] MEDS: TACROLIMUS 1 MG CAP PO SCH (20:24)
[2024-06-07] MEDS ORDERED: MAGNESIUM SULFATE / D5W 1 GM/100 ML BAG IV SCH (21:30)
[2024-06-07] MEDS: MAGNESIUM SULFATE / D5W 1 GM/100 ML BAG IV SCH (21:50)
[2024-06-07] MEDS: ONDANSETRON 4 MG OD TAB PO PRN (23:59)
[2024-06-08] MEDS: INSULIN ASPART PER UNIT CHARGE SC SCH ×2 (00:15→08:17)
[2024-06-08 07:18] LABS: Basophils # (auto) 0.02 K/uL (0.00-0.20); Basophils % (auto) 0.7 %; Eosinophils # (auto) 0.14 K/uL (0.00-0.50); Eosinophils % (auto) 4.9 %; Hematocrit (blood only) 27.5 % (37.0-47.0); Hemoglobin 9.9 g/dl (12.0-16.0); Immature Granulocytes # (auto) 0.02 K/uL (0.01-0.20); Immature Granulocytes % (auto) 0.7 %; Lymphocytes # (auto) 0.78 K/uL (1.20-3.40); Lymphocytes % (auto) 27.3 %; Mean Corpuscular Hemoglobin 30.9 pg (25.0-34.0); Mean Corpuscular Volume 85.9 fL (80.0-100.0); Mean Platelet Volume 11.1 fL (9.4-12.4); Monocytes # (auto) 0.24 K/uL (0.11-0.59); Monocytes % (auto) 8.4 %; Neutrophils # (auto) 1.66 K/uL (1.40-6.50); Platelet Count 103 K/uL (130-400); RDW Coefficient of Variation 13.1 % (11.5-14.5); RDW Standard Deviation 40.8 fL (36.4-46.3); White Blood Count 2.86 K/ul (4.8-10.8)
[2024-06-08 07:41] LABS: Prothrombin Time 10.9 Seconds (9.0-12.0)
[2024-06-08 07:48] LABS: Albumin Globulin Ratio 1.4 (0.9-2); Albumin Level 2.9 gm/dl (3.4-5.0); BUN Creatinine Ratio 17.1 (10-20); Bilirubin,Total 0.7 mg/dl (0.2-1.0); Calcium 8.4 mg/dl (8.6-10.3); Creatinine Clr Calc Pharmacy 22.5 ml/min; Est GFR (African American) 28.4 ml/min; Est GFR (Non-African American) 24.5 ml/min; Globulin 2.1 gm/dl (2.5-4.0); Magnesium 2.3 mg/dl (1.7-2.4); Potassium 5.6 mmol/L (3.5-5.1)
[2024-06-08] MEDS: PANTOprazole 40 MG TAB PO SCH (08:07)
[2024-06-08] MEDS: OXYBUTYNIN CHLORIDE XL 5 MG TABCR PO SCH (08:07)
[2024-06-08] MEDS: METOPROLOL SUCC 25MG EXT REL TAB PO SCH (08:07)
[2024-06-08] MEDS: TACROLIMUS 1 MG CAP PO SCH (08:07)
[2024-06-08] MEDS: LANTUS PER UNIT CHARGE SQ SCH (08:18)
[2024-06-08] MEDS: FUROSEMIDE INJ 20 MG/2 ML VIAL IV ONE (09:38)
--- NOTE | 2024-06-08 10:28 | Nephrology Progress Note ---
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 in [place] 11/13/23. Post-transplant Cr has stabilized at 1.5-2.0 * Kidney function is nearing baseline * Mild hyperkalemia. Continue Lokelma, low K diet. Will stop IVF and provide one dose IV Furosemide this am. Repeat BMP at 1300 hrs today * Recommend follow up w/ primary hair mixer, Dr. 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 Was not using CGM as directed (4) Dehydration: Plan: * Corrected Admission and Anticipated Discharge Date Admission Date: June 07, 2024 Subjective Ms. Hendricks was evaluated in her hospital room this morning. She reports that she has tolerated IV hydration and insulin therapy without complication. She voiced no new medical concerns Review of Systems Constitutional: no fever Eyes: no problem reported Ear, Nose, Mouth, Throat: no problem reported Respiratory: no cough and no dyspnea Cardiovascular: no chest pain Gastrointestinal: no abdominal pain, no nausea, no vomiting and no diarrhea/loose stools Genitourinary: no dysuria Integumentary: no rash Neurologic: no problem reported Physical Exam Constitutional: + frail appearing; not in distress Eyes: PERRL, conjunctivae normal, anicteric sclerae ENMT: external ear and nose normal, oropharynx normal Neck: trachea midline, no thyromegaly Respiratory: able to speak in complete sentences; no respiratory distress Auscultation: lungs clear to auscultation bilaterally Cardiovascular: Rate/Rhythm: regular rate and regular rhythm Extremities: + AV fistula (LUE AVF + bruit) R subclavian a-port Gastrointestinal (Abdomen): normal bowel sounds, soft, nontender, no hepatosplenomegaly (DDRT RLQ NT to palpation) Skin: no rashes, warm and dry Neurologic: Speech / Cognition: normal speech and normal cognition Psychiatric: Affect: euthymic affect Results & Data Vital Signs (Past 12 Hours) Vital Signs Temp Pulse Resp BP Pulse Ox O2 Del Method 06/08/24 07:20 36.4 C L 53 L 19 117/54 L 100 Room Air 06/08/24 02:56 36.6 C 59 L 18 96/46 L 98 Room Air 06/08/24 01:45 94/61 L 06/07/24 22:42 36.9 C 60 18 90/43 L 97 Room Air Laboratory Results Laboratory Results WBC 2.86 K/ul (4.8-10.8) L 06/08/24 06:49 RBC 3.20 M/uL (4.20-5.40) L 06/08/24 06:49 Hgb 9.9 g/dl (12.0-16.0) L 06/08/24 06:49 Hct 27.5 % (37.0-47.0) L 06/08/24 06:49 MCV 85.9 fL (80.0-100.0) 06/08/24 06:49 MCH 30.9 pg (25.0-34.0) 06/08/24 06:49 MCHC 36.0 g/dL (32.0-36.0) 06/08/24 06:49 RDW Std Deviation 40.8 fL (36.4-46.3) 06/08/24 06:49 RDW Coeff of Paty 13.1 % (11.5-14.5) 06/08/24 06:49 Plt Count 103 K/uL (130-400) L 06/08/24 06:49 MPV 11.1 fL (9.4-12.4) 06/08/24 06:49 Immature Gran % (Auto) 0.7 % 06/08/24 06:49 Neut % (Auto) 58.0 % 06/08/24 06:49 Lymph % (Auto) 27.3 % 06/08/24 06:49 [place] % (Auto) 8.4 % 06/08/24 06:49 Eos % (Auto) 4.9 % 06/08/24 06:49 Baso % (Auto) 0.7 % 06/08/24 06:49 Neut # (Auto) 1.66 K/uL (1.40-6.50) 08/08/24 06:49 Lymph # (Auto) 0.78 K/uL (1.20-3.40) L 06/08/24 06:49 [place] # (Auto) 0.24 K/uL (0.11-0.59) 06/08/24 06:49 Eos # (Auto) 0.14 K/uL (0.00-0.50) 06/08/24 06:49 Baso # (Auto) 0.02 K/uL (0.00-0.20) 06/08/24 06:49 Immature Gran # (Auto) 0.02 K/uL (0.01-0.20) 06/08/24 06:49 PT 10.9 Seconds (9.0-12.0) 06/08/24 06:49 INR 1.0 (0.9-1.1) 06/08/24 06:49 Sodium 132 mmol/L (136-145) L 06/08/24 06:49 Potassium 5.6 mmol/L (3.5-5.1) H 06/08/24 06:49 Chloride 103 mmol/L (98-107) 06/08/24 06:49 Carbon Dioxide 24 mmol/L (21-32) 06/08/24 06:49 Anion Gap 5 (3-11) 06/08/24 06:49 BUN 36 mg/dl (6-23) H 06/08/24 06:49 Creatinine 2.11 mg/dl (0.6-1.2) H 06/08/24 06:49 Est Cr Clr Drug Dosing 22.5 ml/min 06/08/24 06:49 Est GFR ( Amer) 28.4 ml/min 06/08/24 06:49 Est GFR (Non-Af Amer) 24.5 ml/min 06/08/24 06:49 BUN/Creatinine Ratio 17.1 (10-20) 06/08/24 06:49 Glucose 274 mg/dl (70-99(Fasting)) H 06/08/24 06:49 POC Glucose 193 mg/dl (70-99) H 06/08/24 07:12 Calcium 8.4 mg/dl (8.6-10.3) L 06/08/24 06:49 Magnesium 2.3 mg/dl (1.7-2.4) 06/08/24 06:49 Total Bilirubin 0.7 mg/dl (0.2-1.0) 06/08/24 06:49 AST 14 U/L (13-39) 06/08/24 06:49 ALT 7 U/L (7-52) 06/08/24 06:49 Alkaline Phosphatase 74 U/L (34-104) 06/08/24 06:49 Total Protein 5.0 gm/dl (6.0-8.3) L D 06/08/24 06:49 Albumin 2.9 gm/dl (3.4-5.0) L 06/08/24 06:49 Globulin 2.1 gm/dl (2.5-4.0) L 06/08/24 06:49 Albumin/Globulin Ratio 1.4 (0.9-2) 06/08/24 06:49 Procalcitonin 0.79 ng/ml (0-0.5) H 06/07/24 11:20 Urine Color Yellow 06/07/24 11:30 Urine Appearance Clear (Clear) 06/07/24 11:30 Urine pH 5.5 (4.5-7.5) 06/07/24 11:30 Ur Specific [place] 1.026 (1.000-1.030) 06/07/24 11:30 Urine Protein Negative (Negative) 06/07/24 11:30 Urine Glucose (UA) 3+ (Negative) H 06/07/24 11:30 Urine Ketones Trace (Negative) H 06/07/24 11:30 Urine Blood Negative (Negative) 06/07/24 11:30 Urine Nitrite Negative (Negative) 06/07/24 11:30 Urine Bilirubin Negative (Negative) 06/07/24 11:30 Urine Urobilinogen Negative (Negative) 06/07/24 11:30 Ur Leukocyte Esterase Negative (Negative) 06/07/24 11:30 PG Care Time/CCT Total # of Minutes Spent Total Time Spent with Patient: Total time spent is greater than 50% in coordination of care (as documented) at patient's floor/unit and/or counseling patient: Coding Level of Care Code 90546 SUB INP/OBS CARE 3/50MIN Diagnoses -donor kidney transplant recipient Z94.0 Liver transplant recipient Z94.4 DM type 2 (diabetes mellitus, type 2) E11.9 Dehydration E86.0
[2024-06-08] MEDS: SODIUM ZIRCONIUM CYCLOSILICATE 10 GM PACKET PO SCH (11:11)
[2024-06-08] MEDS: LANTUS PER UNIT CHARGE SQ ONE (12:12)
--- NOTE | 2024-06-08 12:27 | Pharmacy Report ---
Pharmacy Glycemic Short Note 2 - Date of Service June 08, 2024 - Glycemic Short BSG Results (Last 24 hours): 06/07/24 06/07/24 06/07/24 13:42 14:30 16:27 Glucose POC Glucose 572 H* 460 H* 441 H* 06/07/24 06/07/24 06/07/24 16:56 16:56 20:04 Glucose Cancelled 387 H* POC Glucose 388 H* 06/07/24 06/07/24 06/07/24 20:17 22:23 23:38 Glucose POC Glucose 354 H* 181 H 110 H 06/08/24 06/08/24 06/08/24 01:32 04:06 06:49 Glucose 274 H POC Glucose 129 H 119 H 06/08/24 06/08/24 07:12 11:31 Glucose POC Glucose 193 H 330 H* OUTPATIENT ANTIDIABETIC REGIMEN: * non-compliant - Lispro SSI * A1c = 9.1% (04/24/24) ASSESSMENT: * Rhona is a 64 yo diabetic (type 1-1.5) admitted with dehydration, MADELEINE s/p renal transplant in November 2023, and severe hyperglycemia. * Patient was given a one time dose of 10 units IV regular insulin and started on SQ basal + bolus insulin (initially ordered Novolog q2h -> q4h -> standard ACHS started this morning). Rapid improvement in BSG last evening. Patient required no insulin overnight (BSG of 110 at 00 and 119 mg/dL at 04). * During past admissions, patient has received 0-14 units of basal insulin per day. * Fasting BSG = 193 mg/dL. Given quick rise from 119 to 193 mg/dL, another dose of Lantus 10 units was ordered with breakfast. * Lunch BSG = 330 mg/dL. Patient ate very little for breakfast so seems unlikely that this is due to insufficient carb coverage. However, will tighten novolog parameters and give another 4 units of Lantus. Repeat BSG in 2 hours. PLAN FOR INPATIENT GLYCEMIC CONTROL: * Hold outpatient oral diabetes medications * Basal insulin * Lantus 10 units SQ this morning * Additional 5 units SQ with lunch * Further orders to be determined * Bolus insulin * NovoLog per scale ACHS or Q6hrs while NPO * Goal Range: Low 110 mg/dL - High 160 mg/dL * Correction Factor: 30 mg/dL/unit * Nutritional / Prandial insulin per carb ratio of 1 unit per 10 grams CHO consumed
[2024-06-08 13:43] LABS: BUN Creatinine Ratio 16.4 (10-20); Calcium 8.3 mg/dl (8.6-10.3); Creatinine Clr Calc Pharmacy 21.7 ml/min; Est GFR (African American) 27.1 ml/min; Est GFR (Non-African American) 23.4 ml/min; Potassium 5.1 mmol/L (3.5-5.1)
--- NOTE | 2024-06-08 22:52 | Hospitalist Progress Note ---
Date of Service June 08, 2024 Assessment & Plan (1) Dehydration: Plan: Assessment: 1. Hypovolemia and dehydration. IVF have been stopped. Nephrology on board. trying to control her blood usuagrs. tighten her insulin coverage. 2. Acute kidney injury status postrenal transplant at [facility] in November 2023. Creatinine is 2.1. Provide to hydrate we suspect this will improve. However we will have nephrology see her locally given her transplant history and acute kidney injury. 3. Uncontrolled diabetes mellitus with blood sugars in the 6 and 700s. Volume resuscitation first. Insulin therapy has been introduced. Will reassess her glycemic control here in a few hours by lab as well as by Accu-Chek. Urine ketones are negative. She has a normal anion gap. There is no evidence of DKA at this point. I see no need for IV insulin infusion I think she will improve dramatically with volume resuscitation. 4. History of PBC and TORRES status post liver transplant 2018. 5. Hyperkalemia multifactorial secondary to hypovolemia as well as acute kidney injury. Calcium gluconate been ordered as well as Lokelma. Will reassess her potassium by lab here in several hours. Also hydrate aggressively. In addition to insulin therapy will aid in the treatment of the hyperkalemia. 6. GERD. Continue Protonix. 7. 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 8. Hypertension. Continue home meds. 9. Pancytopenia chronic secondary to her oncological issues. Stable. 10. Pseudohyponatremia secondary to the significant hyperglycemia. Will monitor her sodium levels. Plan: will keep another day as blood sugars remain above goal on 06/08 Admission and Anticipated Discharge Date Admission Date: June 07, 2024 Subjective 64 yo female reports no new symptoms. Review of Systems Review of Systems: All systems reviewed & are unremarkable except as noted in HPI & below Physical Exam Physical Exam: Paient is in NAD> HEENT: NC/AT NECK: Supple HEART: Regular rate and rhythm LUNGS: CTA BL ABDOMEN: Soft nontender, no rebound, no peritoneal signs, positive bowel sounds, no appreciable organomegaly. EXTREMITIES: Intact, no peripheral cyanosis, clubbing or edema. Strength is 5 out of 5 in extremities x4, no pathological reflexes. NEUROLOGICAL: Cranial nerves II through XII are grossly intact with no focal deficit elicited upon examination. No tremor. Results & Data Results & Data Vital Signs (Past 12 Hours) Vital Signs Temp Pulse Pulse Resp BP Pulse Ox O2 Del Method 06/08/24 22:44 55 L 06/08/24 19:05 36.8 C 58 L 16 118/59 L 100 Room Air 06/08/24 16:04 36.7 C 59 L 19 97/52 L 97 Room Air 06/08/24 11:35 36.5 C 51 L 19 135/63 888 H Room Air PG Care Time/CCT Total # of Minutes Spent Total Time Spent with Patient: Total time spent is greater than 50% in coordination of care (as documented) at patient's floor/unit and/or counseling patient: Coding Level of Care Code 78322 SUB INP/OBS CARE 2/35MIN Diagnoses Dehydration E86.0
[2024-06-09] MEDS: INSULIN ASPART PER UNIT CHARGE SC SCH (01:23)
[2024-06-09 06:54] LABS: Basophils # (auto) 0.01 K/uL (0.00-0.20); Basophils % (auto) 0.3 %; Eosinophils # (auto) 0.11 K/uL (0.00-0.50); Eosinophils % (auto) 3.8 %; Hematocrit (blood only) 26.1 % (37.0-47.0); Hemoglobin 9.2 g/dl (12.0-16.0); Immature Granulocytes # (auto) 0.01 K/uL (0.01-0.20); Immature Granulocytes % (auto) 0.3 %; Lymphocytes # (auto) 0.93 K/uL (1.20-3.40); Lymphocytes % (auto) 31.8 %; Mean Corpuscular Hemoglobin 30.9 pg (25.0-34.0); Mean Corpuscular Hgb Conc 35.2 g/dL (32.0-36.0); Mean Corpuscular Volume 87.6 fL (80.0-100.0); Mean Platelet Volume 10.9 fL (9.4-12.4); Monocytes # (auto) 0.24 K/uL (0.11-0.59); Monocytes % (auto) 8.2 %; Neutrophils # (auto) 1.62 K/uL (1.40-6.50); Neutrophils % (auto) 55.6 %; Platelet Count 103 K/uL (130-400); RDW Coefficient of Variation 13.2 % (11.5-14.5); Red Blood Count 2.98 M/uL (4.20-5.40); White Blood Count 2.92 K/ul (4.8-10.8)
[2024-06-09 07:11] LABS: Albumin Globulin Ratio 1.4 (0.9-2); Albumin Level 2.7 gm/dl (3.4-5.0); BUN Creatinine Ratio 16.1 (10-20); Bilirubin,Total 0.6 mg/dl (0.2-1.0); Calcium 8.1 mg/dl (8.6-10.3); Creatinine Clr Calc Pharmacy 18.8 ml/min; Est GFR (African American) 22.7 ml/min; Est GFR (Non-African American) 19.5 ml/min; Total Protein 4.7 gm/dl (6.0-8.3)
[2024-06-09 07:20] LABS: Prothrombin Time 11.1 Seconds (9.0-12.0)
[2024-06-09] MEDS: LANTUS PER UNIT CHARGE SC SCH (08:18)
[2024-06-09] MEDS: SODIUM CHLORIDE 0.9% 1,000 ML IV SCH ×2 (09:09→17:33)
--- NOTE | 2024-06-09 11:02 | Nephrology Progress Note ---
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 Post-transplant Cr has stabilized at 1.5-2.0 * Hyperkalemia resolved. Continue Lokelma, low K diet * Creatinine 2.5 this am. Will provide gently hydration and recheck at 3 pm * If creatinine 2.0 or less this afternoon, patient may return home and follow up as outpatient w/ primary licensed vocational nurse, Dr. 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 Was not using CGM as directed (4) Dehydration: Plan: * Corrected Admission and Anticipated Discharge Date Admission Date: June 07, 2024 Subjective Ms. Hendricks was evaluated in her hospital room this morning. She reports that she is subjectively improved and hopes to return home soon Review of Systems Constitutional: no fever Eyes: no problem reported Ear, Nose, Mouth, Throat: no problem reported Respiratory: no cough and no dyspnea Cardiovascular: no chest pain Gastrointestinal: no abdominal pain, no nausea, no vomiting and no diarrhea/loose stools Genitourinary: no dysuria Integumentary: no rash Neurologic: no problem reported Physical Exam Constitutional: + frail appearing; not in distress Eyes: PERRL, conjunctivae normal, anicteric sclerae ENMT: external ear and nose normal, oropharynx normal Neck: trachea midline, no thyromegaly Respiratory: able to speak in complete sentences; no respiratory distress Auscultation: lungs clear to auscultation bilaterally Cardiovascular: Rate/Rhythm: regular rate and regular rhythm Extremities: + AV fistula (LUE AVF + bruit) Gastrointestinal (Abdomen): normal bowel sounds, soft, nontender, no hepatosplenomegaly (DDRT RLQ NT to palpation) Skin: no rashes, warm and dry Neurologic: Speech / Cognition: normal speech and normal cognition Psychiatric: Affect: euthymic affect Results & Data Vital Signs (Past 12 Hours) Vital Signs Temp Pulse Resp BP Pulse Ox O2 Del Method 06/09/24 07:00 36.7 C 58 L 18 102/60 98 Room Air 06/09/24 02:49 36.4 C L 55 L 18 95/52 L 97 Room Air Laboratory Results Laboratory Results - last 24 hr 06/08/24 06/08/24 06/08/24 11:31 12:45 14:26 WBC RBC Hgb Hct MCV MCH MCHC RDW Std Deviation RDW Coeff of Paty Plt Count MPV Immature Gran % (Auto) Neut % (Auto) Lymph % (Auto) [place] % (Auto) Eos % (Auto) Baso % (Auto) Neut # (Auto) Lymph # (Auto) [place] # (Auto) Eos # (Auto) Baso # (Auto) Immature Gran # (Auto) PT INR Sodium 130 L Potassium 5.1 Chloride 101 Carbon Dioxide 22 Anion Gap 7 BUN 36 H Creatinine 2.19 H Est Cr Clr Drug Dosing 21.7 Est GFR ( Amer) 27.1 Est GFR (Non-Af Amer) 23.4 BUN/Creatinine Ratio 16.4 Glucose 421 H* POC Glucose 330 H* 393 H* Calcium 8.3 L Magnesium Total Bilirubin AST ALT Alkaline Phosphatase Total Protein Albumin Globulin Albumin/Globulin Ratio 06/08/24 06/08/24 06/09/24 16:04 20:02 01:22 WBC RBC Hgb Hct MCV MCH MCHC RDW Std Deviation RDW Coeff of Paty Plt Count MPV Immature Gran % (Auto) Neut % (Auto) Lymph % (Auto) [place] % (Auto) Eos % (Auto) Baso % (Auto) Neut # (Auto) Lymph # (Auto) [place] # (Auto) Eos # (Auto) Baso # (Auto) Immature Gran # (Auto) PT INR Sodium Potassium Chloride Carbon Dioxide Anion Gap BUN Creatinine Est Cr Clr Drug Dosing Est GFR ( Amer) Est GFR (Non-Af Amer) BUN/Creatinine Ratio Glucose POC Glucose 330 H* 208 H 102 H Calcium Magnesium Total Bilirubin AST ALT Alkaline Phosphatase Total Protein Albumin Globulin Albumin/Globulin Ratio 06/09/24 06/09/24 06/09/24 04:19 06:38 07:00 WBC 2.92 L RBC 2.98 L Hgb 9.2 L Hct 26.1 L MCV 87.6 MCH 30.9 MCHC 35.2 RDW Std Deviation 42.0 RDW Coeff of Paty 13.2 Plt Count 103 L MPV 10.9 Immature Gran % (Auto) 0.3 Neut % (Auto) 55.6 Lymph % (Auto) 31.8 [place] % (Auto) 8.2 Eos % (Auto) 3.8 Baso % (Auto) 0.3 Neut # (Auto) 1.62 Lymph # (Auto) 0.93 L [place] # (Auto) 0.24 Eos # (Auto) 0.11 Baso # (Auto) 0.01 Immature Gran # (Auto) 0.01 PT 11.1 INR 1.0 Sodium 132 L Potassium 5.0 Chloride 102 Carbon Dioxide 26 Anion Gap 4 BUN 41 H Creatinine 2.54 H D Est Cr Clr Drug Dosing 18.8 Est GFR ( Amer) 22.7 Est GFR (Non-Af Amer) 19.5 BUN/Creatinine Ratio 16.1 Glucose 172 H POC Glucose 152 H 162 H Calcium 8.1 L Magnesium 2.0 Total Bilirubin 0.6 AST 15 ALT 7 Alkaline Phosphatase 68 Total Protein 4.7 L Albumin 2.7 L Globulin 2.0 L Albumin/Globulin Ratio 1.4 PG Care Time/CCT Total # of Minutes Spent Total Time Spent with Patient: Total time spent is greater than 50% in coordination of care (as documented) at patient's floor/unit and/or counseling patient: Coding Level of Care Code 09550 SUB INP/OBS CARE 3/50MIN Diagnoses -donor kidney transplant recipient Z94.0 Liver transplant recipient Z94.4 DM type 2 (diabetes mellitus, type 2) E11.9 Dehydration E86.0
--- NOTE | 2024-06-09 15:18 | Pharmacy Report ---
Pharmacy Glycemic Short Note 2 - Date of Service June 09, 2024 - Glycemic Short BSG Results (Last 24 hours): 06/08/24 06/08/24 06/09/24 16:04 20:02 01:22 Glucose POC Glucose 330 H* 208 H 102 H 06/09/24 06/09/24 06/09/24 04:19 06:38 07:00 Glucose 172 H POC Glucose 152 H 162 H 06/09/24 11:13 Glucose POC Glucose 193 H OUTPATIENT ANTIDIABETIC REGIMEN: * non-compliant - Lispro SSI * A1c = 9.1% (04/24/24) ASSESSMENT: 06/09/24: * BSGs yesterday were [phone] mg/dl. Fasting BSG today was 162 mg/dl. * Patient received 14 units basal and 30 units bolus insulins yesterday. * Renal function slightly worse today compared to yesterday. Reduced basal dose to 12 units today AM. * BSGs today have been better controlled so far. * Novolog correction loosened slightly with lunch. 06/08/24: * Rhona is a 64 yo diabetic (type 1-1.5) admitted with dehydration, MADELEINE s/p renal transplant in November 2023, and severe hyperglycemia. * Patient was given a one time dose of 10 units IV regular insulin and started on SQ basal + bolus insulin (initially ordered Novolog q2h -> q4h -> standard ACHS started this morning). Rapid improvement in BSG last evening. Patient required no insulin overnight (BSG of 110 at 00 and 119 mg/dL at 04). * During past admissions, patient has received 0-14 units of basal insulin per day. * Fasting BSG = 193 mg/dL. Given quick rise from 119 to 193 mg/dL, another dose of Lantus 10 units was ordered with breakfast. * Lunch BSG = 330 mg/dL. Patient ate very little for breakfast so seems unlikely that this is due to insufficient carb coverage. However, will tighten novolog parameters and give another 4 units of Lantus. Repeat BSG in 2 hours. PLAN FOR INPATIENT GLYCEMIC CONTROL: * Hold outpatient oral diabetes medications * Basal insulin * Lantus 12 units SC QAM * Bolus insulin * NovoLog per scale ACHS or Q6hrs while NPO * Goal Range: Low 110 mg/dL - High 160 mg/dL * Correction Factor: 30 mg/dL/unit * Nutritional / Prandial insulin per carb ratio of 1 unit per 8 grams CHO consumed
[2024-06-09 15:57] LABS: BUN Creatinine Ratio 17.9 (10-20); Calcium 7.9 mg/dl (8.6-10.3); Creatinine Clr Calc Pharmacy 20.8 ml/min; Est GFR (African American) 25.7 ml/min; Est GFR (Non-African American) 22.2 ml/min; Potassium 4.6 mmol/L (3.5-5.1)
--- NOTE | 2024-06-09 22:10 | Hospitalist Progress Note ---
Date of Service June 09, 2024 Assessment & Plan (1) Dehydration: Plan: Assessment: 1. Hypovolemia and dehydration. IVF have been stopped. Nephrology on board. trying to control her blood usuagrs. tighten her insulin coverage. 2. Acute kidney injury status postrenal transplant at [facility] in November 2023. Creatinine is above 2.0 will continue fluids and monitor. 3. Uncontrolled diabetes mellitus with blood sugars in the 6 and 700s. Volume resuscitation first. Insulin therapy has been introduced. Will reassess her glycemic control here in a few hours by lab as well as by Accu-Chek. Urine ketones are negative. She has a normal anion gap. There is no evidence of DKA at this point. I see no need for IV insulin infusion I think she will improve dramatically with volume resuscitation. 4. 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 5. Hyperkalemia multifactorial secondary to hypovolemia as well as acute kidney injury. Calcium gluconate been ordered as well as Lokelma. Will reassess her potassium by lab here in several hours. Also hydrate aggressively. In addition to insulin therapy will aid in the treatment of the hyperkalemia. 6. GERD. Continue Protonix. 7. 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 8. Hypertension. Continue home meds. 9. Pancytopenia chronic secondary to her oncological issues. Stable. 10. Pseudohyponatremia secondary to the significant hyperglycemia. Will monitor her sodium levels. Plan: will keep another day as creatinine remains above 2.0 Admission and Anticipated Discharge Date Admission Date: June 07, 2024 Subjective Patient reports no new symptoms. Review of Systems Review of Systems: All systems reviewed & are unremarkable except as noted in HPI & below Physical Exam 2 Physical Exam: Paient is in NAD> HEENT: NC/AT NECK: Supple HEART: Regular rate and rhythm LUNGS: CTA BL ABDOMEN: Soft nontender, no rebound, no peritoneal signs, positive bowel sounds, no appreciable organomegaly. EXTREMITIES: Intact, no peripheral cyanosis, clubbing or edema. Strength is 5 out of 5 in extremities x4, no pathological reflexes. NEUROLOGICAL: Cranial nerves II through XII are grossly intact with no focal deficit elicited upon examination. No tremor. Results & Data Results & Data Vital Signs (Past 12 Hours) Vital Signs Temp Pulse Resp BP Pulse Ox O2 Del Method 06/09/24 19:27 36.6 C 58 L 18 116/68 97 Room Air 06/09/24 15:27 36.5 C 54 L 19 128/79 99 Room Air 06/09/24 11:14 36.5 C 54 L 18 125/71 99 Room Air PG Care Time/CCT Total # of Minutes Spent Total Time Spent with Patient: Total time spent is greater than 50% in coordination of care (as documented) at patient's floor/unit and/or counseling patient: Coding Level of Care Code 23290 SUB INP/OBS CARE 2/35MIN Diagnoses Dehydration E86.0
[2024-06-10 06:47] LABS: Basophils # (auto) 0.01 K/uL (0.00-0.20); Basophils % (auto) 0.3 %; Eosinophils # (auto) 0.11 K/uL (0.00-0.50); Eosinophils % (auto) 3.4 %; Hematocrit (blood only) 28.6 % (37.0-47.0); Hemoglobin 10.1 g/dl (12.0-16.0); Immature Granulocytes # (auto) 0.01 K/uL (0.01-0.20); Immature Granulocytes % (auto) 0.3 %; Lymphocytes # (auto) 0.95 K/uL (1.20-3.40); Lymphocytes % (auto) 29.8 %; Mean Corpuscular Hemoglobin 31.4 pg (25.0-34.0); Mean Corpuscular Hgb Conc 35.3 g/dL (32.0-36.0); Mean Corpuscular Volume 88.8 fL (80.0-100.0); Mean Platelet Volume 11.1 fL (9.4-12.4); Monocytes # (auto) 0.25 K/uL (0.11-0.59); Monocytes % (auto) 7.8 %; Neutrophils # (auto) 1.86 K/uL (1.40-6.50); Neutrophils % (auto) 58.4 %; Platelet Count 130 K/uL (130-400); RDW Standard Deviation 42.3 fL (36.4-46.3); Red Blood Count 3.22 M/uL (4.20-5.40); White Blood Count 3.19 K/ul (4.8-10.8)
[2024-06-10 07:13] LABS: Albumin Globulin Ratio 1.3 (0.9-2); Albumin Level 2.8 gm/dl (3.4-5.0); BUN Creatinine Ratio 17.3 (10-20); Bilirubin,Total 0.6 mg/dl (0.2-1.0); Calcium 7.7 mg/dl (8.6-10.3); Creatinine Clr Calc Pharmacy 19.9 ml/min; Est GFR (African American) 24.6 ml/min; Est GFR (Non-African American) 21.3 ml/min; Globulin 2.1 gm/dl (2.5-4.0); Magnesium 1.9 mg/dl (1.7-2.4); Potassium 4.8 mmol/L (3.5-5.1); Total Protein 4.9 gm/dl (6.0-8.3)
[2024-06-10 07:14] LABS: Prothrombin Time 10.9 Seconds (9.0-12.0)
[2024-06-10] MEDS: LANTUS PER UNIT CHARGE SC SCH ×2 (08:07→20:47)
[2024-06-10] MEDS: SODIUM CHLORIDE 0.9% 1,000 ML IV SCH ×2 (09:11→16:24)
--- NOTE | 2024-06-10 12:26 | Nephrology Progress Note ---
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 Posttransplant course was complicated by delayed graft function, and required dialysis for a brief. Then she has been having repeated episodes of MADELEINE and baseline creatinine seems to be around 1.5 mg/dl. on IS with Tacrolimus 3 mg qAM/2mg qPM, MMF 250 mg BID. Chronic TMA being managed w/ Eculizumab q 2weeks. PMH also significant for MGUS, IDDM, OA/DDD, spinal stenosis. Admitted on 06/07/24 after she presented to [facility] for her eculizumab therapy and reported that she was not feeling well and her BSG was > 400. She has not been checking her blood sugar at home. On admission lab was notable for MADELEINE, creatinine was 2.1, potassium 5.9, HCO3 21. She was started on insulin. Overall she is feeling much better, clinically improved, however kidney function worsened, creatinine up to 2.4 this morning. Received 1 L of IV normal saline this morning, electrolyte abnormality resolved, on potassium binder. --continue on Lokelma daily and sodium bicarbonate 1 tab twice a day --Hold discharge until see clear improvement in kidney function. --Encouraged to keep well-hydrated . Admission and Anticipated Discharge Date Admission Date: June 07, 2024 Subjective Rhona was seen and examined this morning. Overall she reports feeling well but concerned with progressive rise in creatinine, creatinine this morning was up to 2.4. Electrolyte acceptable. Blood pressure well-controlled. She reports decent p.o. intake and trying to increase fluid intake. Review of Systems Review of Systems: Delivery of system was done and pertinent positives and negatives are mentioned above. Physical Exam Constitutional: WD/WN, vitals as above no acute distress Eyes: + anicteric sclerae Neck: normal visual inspection Respiratory: no respiratory distress Auscultation: lungs clear to auscultation bilaterally Cardiovascular: Rate/Rhythm: regular rate and regular rhythm Heart Sounds: normal S1 and normal S2 Extremities: + AV fistula (left BC AVF with thrill and bruit.); no edema Skin: no rashes, warm and dry Neurologic: no focal motor deficits Psychiatric: Orientation: alert and oriented x 3 Results & Data Vital Signs (Past 12 Hours) Vital Signs Temp Pulse Pulse Resp BP Pulse Ox O2 Del Method 06/10/24 11:00 36.5 C 59 L 16 131/74 97 Room Air 06/10/24 08:58 60 06/10/24 08:00 36.5 C 68 18 125/61 98 Room Air 06/10/24 03:56 36.6 C 60 18 116/57 L 97 Room Air PG Care Time/CCT Total # of Minutes Spent Total Time Spent with Patient: Total time spent is greater than 50% in coordination of care (as documented) at patient's floor/unit and/or counseling patient: Coding Level of Care Code 85579 SUB INP/OBS CARE 2/35MIN Diagnoses MADELEINE (acute kidney injury) N17.9 -donor kidney transplant recipient Z94.0 Hyperglycemia R73.9 Hyperkalemia E87.5 Dehydration E86.0
[2024-06-10 17:28] LABS: BUN Creatinine Ratio 20.8 (10-20); Creatinine Clr Calc Pharmacy 23.9 ml/min; Est GFR (African American) 30.8 ml/min; Est GFR (Non-African American) 26.6 ml/min; Potassium 4.1 mmol/L (3.5-5.1)
--- NOTE | 2024-06-10 22:54 | Hospitalist Progress Note ---
Date of Service June 10, 2024 Assessment & Plan (1) Dehydration: Plan: Assessment: 1. Hypovolemia and dehydration. IVF have been stopped. Nephrology on board. trying to control her blood sugars. tighten her insulin coverage. 2. Acute kidney injury status postrenal transplant at [facility] in November 2023. Creatinine is above 2.0 will continue fluids and monitor. Patient continues to require IVF on 06/10 3. Uncontrolled diabetes mellitus with blood sugars in the 6 and 700s. Volume resuscitation first. Insulin therapy has been introduced. Will reassess her glycemic control here in a few hours by lab as well as by Accu-Chek. Urine keto denny are negative. She has a normal anion gap. There is no evidence of DKA at this point. I see no need for IV insulin infusion I think she will improve dramatically with volume resuscitation. 4. 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 5. Hyperkalemia multifactorial secondary to hypovolemia as well as acute kidney injury. Calcium gluconate been ordered as well as Lokelma. Will reassess her potassium by lab here in several hours. Also hydrate aggressively. In addition to insulin therapy will aid in the treatment of the hyperkalemia. 6. GERD. Continue Protonix. 7. 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 8. Hypertension. Continue home meds. 9. Pancytopenia chronic secondary to her oncological issues. Stable. 10. Pseudohyponatremia secondary to the significant hyperglycemia. Will monitor her sodium levels. Plan: will keep another day as creatinine remains above 2.0 Admission and Anticipated Discharge Date Admission Date: June 07, 2024 Subjective Patient reports feeling well. Patient has no new symptoms. Review of Systems Review of Systems: All systems reviewed & are unremarkable except as noted in HPI & below Physical Exam Physical Exam: Paient is in NAD> HEENT: NC/AT NECK: Supple HEART: Regular rate and rhythm LUNGS: CTA BL ABDOMEN: Soft nontender, no rebound, no peritoneal signs, positive bowel sounds, no appreciable organomegaly. EXTREMITIES: Intact, no peripheral cyanosis, clubbing or edema. Strength is 5 out of 5 in extremities x4, no pathological reflexes. NEUROLOGICAL: Cranial nerves II through XII are grossly intact with no focal deficit elicited upon examination. No tremor. Results & Data Results & Data Vital Signs (Past 12 Hours) Vital Signs Temp Pulse Pulse Resp BP Pulse Ox O2 Del Method 06/10/24 22:48 63 06/10/24 19:46 36.7 C 61 14 108/69 100 Room Air 06/10/24 14:04 58 L 06/10/24 11:00 36.5 C 59 L 16 131/74 97 Room Air PG Care Time/CCT Total # of Minutes Spent Total Time Spent with Patient: Total time spent is greater than 50% in coordination of care (as documented) at patient's floor/unit and/or counseling patient: Coding Level of Care Code 08465 SUB INP/OBS CARE 2/35MIN Diagnoses Dehydration E86.0
[2024-06-11] MEDS: SODIUM CHLORIDE 0.45 % 1,000 ML IV SCH (04:21)
[2024-06-11 08:10] VITALS: BP 139/68; RESP 16; TEMP 98.2; O2SAT 100
--- NOTE | 2024-06-11 10:31 | Discharge Summary ---
Discharge Summary Date of Service June 11, 2024 Principal Dx & Hospital Course #1 = Principal Diagnosis (1) Dehydration: Assessment: 1. Hypovolemia and dehydration. IVF have been stopped. Nephrology on board. trying to control her blood sugars. tighten her insulin coverage. 2. Acute kidney injury status postrenal transplant at [facility] in November 2023. Creatinine is above 2.0 will continue fluids and monitor. Patient continues to require IVF on 06/10 3. Uncontrolled diabetes mellitus with blood sugars in the 6 and 700s. Volume resuscitation first. Insulin therapy has been introduced. Will reassess her glycemic control here in a few hours by lab as well as by Accu-Chek. Urine ketones are negative. She has a normal anion gap. There is no evidence of DKA at this point. I see no need for IV insulin infusion I think she will improve dramatically with volume resuscitation. 4. 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 5. Hyperkalemia multifactorial secondary to hypovolemia as well as acute kidney injury. Calcium gluconate been ordered as well as Lokelma. Will reassess her potassium by lab here in several hours. Also hydrate aggressively. In addition to insulin therapy will aid in the treatment of the hyperkalemia. 6. GERD. Continue Protonix. 7. 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 8. Hypertension. Continue home meds. 9. Pancytopenia chronic secondary to her oncological issues. Stable. 10. Pseudohyponatremia secondary to the significant hyperglycemia. Will monitor her sodium levels. Plan: will keep another day as creatinine remains above 2.0 Admission HPI Per Admitting Provider Pleasant but unfortunate 64-year-old female who is status post liver transplant and renal transplant with a history of HUS as well. She is under the treatment of the cancer center here. She went there for an infusion today and laboratory studies were obtained and her blood glucose was over 700 with a sodium of 124. Potassium was 5.6. The patient was directed to the ER for further evaluation and treatment. In the ER she had an EKG which was reassuring. Repeat laboratory studies in the ER demonstrated a potassium of 5.9. A creatinine of 2.1.. Laboratory studies in the ER demonstrated a creatinine of 2.1, potassium 5.9 and a blood glucose of 663. Course in the ER she received IV saline. And we are notified for admission. Admitting the patient going to give 2 L of lactated Ringer's. Will start her on some calcium gluconate for her hyper kalemia as well as Lokelma.. Will going to repeat some labs at 5 PM. Get the patient admitted to a telemetry unit. Urinalysis is negative for infection her CBC looks stable with some leukopenia 2.76 and some anemia of chronic disease 11.3. On further history taking the patient does report not taking the best care of herself over the last week she has been just tired of dealing with illnesses. She really has not been taking her insulins as directed etc. She states he has no thoughts of harming herself she wants to live and she has multiple grandchildren she is involved with. She states that she has had a bad week last week and she feels this is why her numbers are the way they are and she is probably absolutely correct. Discharge Exam Paient is in NAD> HEENT: NC/AT NECK: Supple HEART: Regular rate and rhythm LUNGS: CTA BL ABDOMEN: Soft nontender, no rebound, no peritoneal signs, positive bowel sounds, no appreciable organomegaly. EXTREMITIES: Intact, no peripheral cyanosis, clubbing or edema. Strength is 5 out of 5 in extremities x4, no pathological reflexes. NEUROLOGICAL: Cranial nerves II through XII are grossly intact with no focal deficit elicited upon examination. No tremor. Updated Medication List Medication Instructions Recorded Confirmed Type blood-glucose sensor (Dexcom G7 08/17/23 04/26/24 History Sensor device) insulin lispro 100 unit/mL 1 sliding scale dose subcut 12/11/23 06/07/24 History subcutaneous pen USEASDIRECTD tacrolimus 1 mg capsule, 1 mg PO UD 01/04/24 06/07/24 History immediate-release (Prograf) miscellaneous medical supply #1 L 01/05/24 04/26/24 Rx solifenacin 5 mg tablet (Vesicare) 5 mg PO QAM #90 tabs 03/16/24 06/07/24 Rx sodium zirconium cyclosilicate 10 10 g PO DAILY 05/03/24 06/07/24 History gram oral powder packet (Lokelma) pantoprazole 40 mg tablet,delayed 40 mg PO QAM #90 tabs 05/15/24 06/07/24 Rx release amoxicillin 250 mg capsule 250 mg PO BID 06/07/24 06/07/24 History metoprolol succinate 25 mg 25 mg PO QAM 06/07/24 06/07/24 History tablet,extended release 24 hr mycophenolate sodium 180 mg 180 mg PO BID 06/07/24 06/07/24 History tablet,delayed release sodium bicarbonate 650 mg tablet 1,300 mg PO BID 06/07/24 06/07/24 History Hospital Stay Data Consultations 06/07/24 12:41 ED Decision to Admit Stat 06/07/24 12:44 Consult Nephrology Routine Pending Results Patient Have Any Pending Studies at Discharge: Yes Discharge Instructions Given to Patient (Per Discharging Provider) follow up as outpatient w/ primary cardiology physician assistant, Dr. Rod Acosta ([facility]) Recommend PCP folowup in 1-2 weeks. Coding Diagnoses Dehydration E86.0
[2024-06-11 11:27] VITALS: PULSE 67
[2024-06-11] MEDS: HEPARIN 100 UNIT/ML 5ML FLUSH FLUSH STA (11:34)
[2024-06-11] MEDS: INSULIN ASPART PER UNIT CHARGE SC SCH (11:50)
--- NOTE | 2024-06-11 13:14 | Nephrology Progress Note ---
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 Posttransplant course was complicated by delayed graft function, and required dialysis for a brief. Then she has been having repeated episodes of MADELEINE and baseline creatinine seems to be around 1.5 mg/dl. on IS with Tacrolimus 3 mg qAM/2mg qPM, MMF 250 mg BID. Chronic TMA being managed w/ Eculizumab q 2weeks. PMH also significant for MGUS, IDDM, OA/DDD, spinal stenosis. Admitted on 06/07/24 after she presented to [facility] for her eculizumab therapy and reported that she was not feeling well and her BSG was > 400. She has not been checking her blood sugar at home. On admission lab was notable for MADELEINE, creatinine was 2.1, potassium 5.9, HCO3 21. She was started on insulin. Overall she is feeling much better, clinically improved, lab yesterday afternoon showed creatinine improved to 1.9 from 2.4. Has been on IV fluid. --continue on Lokelma daily and sodium bicarbonate 1 tab twice a day --Okay to discharge with close outpatient lab monitoring, recommend doing lab in next 2 to 3 days and copy to her primary cross country coach as well as the transplant team. --Encouraged to keep well-hydrated . Admission and Anticipated Discharge Date Admission Date: June 07, 2024 Mervin Melgoza was seen and examined this morning. Overall she reports feeling well denies any acute symptoms. Lab yesterday afternoon showed creatinine slightly improved to 1.9, electrolyte acceptable. Blood pressure well-controlled. She reports decent p.o. intake and trying to increase fluid intake. Review of Systems Review of Systems: Delivery of system was done and pertinent positives and negatives are mentioned above. Physical Exam Constitutional: WD/WN, vitals as above no acute distress Respiratory: no respiratory distress Auscultation: lungs clear to auscultation bilaterally Cardiovascular: Rate/Rhythm: regular rate and regular rhythm Heart Sounds: normal S1 and normal S2 Extremities: + AV fistula (left BC AVF with thrill and bruit.); no edema Skin: no rashes, warm and dry Neurologic: no focal motor deficits Psychiatric: Orientation: alert and oriented x 3 Results & Data Vital Signs (Past 12 Hours) Vital Signs Temp Pulse Pulse Resp BP Pulse Ox O2 Del Method 06/11/24 11:25 36.8 C 67 16 139/68 100 06/11/24 08:08 36.8 C 67 16 139/68 100 Room Air 06/11/24 08:00 56 L 06/11/24 03:17 36.5 C 64 14 103/62 97 Room Air PG Care Time/CCT Total # of Minutes Spent Total Time Spent with Patient: Total time spent is greater than 50% in coordination of care (as documented) at patient's floor/unit and/or counseling patient: Coding Level of Care Code 35430 SUB INP/OBS CARE 2/35MIN Diagnoses MADELEINE (acute kidney injury) N17.9 -donor kidney transplant recipient Z94.0 Hyperglycemia R73.9 Hyperkalemia E87.5 Dehydration E86.0
[2024-06-12] MEDS ORDERED: INSULIN ASPART PER UNIT CHARGE SC SCH (07:30)
== END 2024-06-11 12:02 | disposition home or self-care (01) | DRG 698 ==
LOC: ED 11:00 → SUATTDRO 12:38 → 2S 12:38

== ENCOUNTER 2024-12-19 15:32 | Inpatient (IN) ==
[2024-12-19 16:19] LABS: Basophils # (auto) 0.01 K/uL (0.00-0.20); Basophils % (auto) 0.3 %; Hematocrit (blood only) 33.5 % (37.0-47.0); Hemoglobin 11.6 g/dl (12.0-16.0); Immature Granulocytes # (auto) 0.15 K/uL (0.01-0.20); Immature Granulocytes % (auto) 4.7 %; Lymphocytes # (auto) 0.64 K/uL (1.20-3.40); Lymphocytes % (auto) 19.9 %; Mean Corpuscular Hemoglobin 29.9 pg (25.0-34.0); Mean Corpuscular Hgb Conc 34.6 g/dL (32.0-36.0); Mean Corpuscular Volume 86.3 fL (80.0-100.0); Mean Platelet Volume 10.5 fL (9.4-12.4); Monocytes # (auto) 0.48 K/uL (0.11-0.59); Monocytes % (auto) 14.9 %; Neutrophils # (auto) 1.94 K/uL (1.40-6.50); Neutrophils % (auto) 60.2 %; Platelet Count 156 K/uL (130-400); RDW Coefficient of Variation 12.9 % (11.5-14.5); RDW Standard Deviation 40.2 fL (36.4-46.3); Red Blood Count 3.88 M/uL (4.20-5.40); White Blood Count 3.22 K/ul (4.8-10.8)
[2024-12-19 16:36] LABS: Albumin Globulin Ratio 1.1 (0.9-2); Albumin Level 3.5 gm/dl (3.4-5.0); BUN Creatinine Ratio 24.7 (10-20); Calcium 9.2 mg/dl (8.6-10.3); Creatinine Clr Calc Pharmacy 19.3 ml/min; Globulin 3.1 gm/dl (2.5-4.0); Potassium 5.6 mmol/L (3.5-5.1); Total Protein 6.6 gm/dl (6.0-8.3)
[2024-12-19 17:02] LABS: Adenovirus PCR Not Detected (NotDetected); Bordetella parapertussis PCR Not Detected (NotDetected); Bordetella pertussis PCR Not Detected (NotDetected); Chlamydia pneumoniae PCR Not Detected (NotDetected); Coronavirus 229E PCR Not Detected (NotDetected); Coronavirus CoV-2 (COVID19)PCR Not Detected (NotDetected); Coronavirus HKU1 PCR Not Detected (NotDetected); Coronavirus NL63 PCR Not Detected (NotDetected); Coronavirus OC43PCR Not Detected (NotDetected); Human Metapneumovirus PCR Not Detected (NotDetected); Influenza A PCR Not Detected (NotDetected); Influenza B PCR Not Detected (NotDetected); Mycoplasma pneumoniae PCR Not Detected (NotDetected); Parainfluenza Virus 1 PCR Not Detected (NotDetected); Parainfluenza Virus 2 PCR Not Detected (NotDetected); Parainfluenza Virus 3 PCR Not Detected (NotDetected); Parainfluenza Virus 4 PCR Not Detected (NotDetected); Respiratory Syncytial VirusPCR Not Detected (NotDetected); Rhinovirus/Enterovirus PCR Not Detected (NotDetected)
--- NOTE | 2024-12-19 17:02 | Emergency Department Note ---
Impression & Plan MADELEINE (acute kidney injury), Nausea vomiting and diarrhea, Acute hyperkalemia, Renal transplant recipient ED Provider Note NAME: JULIOCESAR LU AGE: 64 SEX: F : 1960 ARRIVES VIA: Walk-In INFORMANT: Patient, ED PROVIDER(S): Matt Tavera MD CHIEF COMPLAINT: Nausea vomiting diarrhea MEDICAL DECISION MAKING: Patient presents due to concern for vomiting and diarrhea. IV was established and blood work was obtained. Patient with a white count of 3.2 with a hemoglobin 0.6. Platelet count is unremarkable. MADELEINE with creat of 2.5 baseline of 1.1. Potassium of 5.6. Anion gap is normal. BSG at 219 but nonfasting. This patient does have a an anion gap believe DKA to be less likely in patient likely is hyperglycemic and has a low bicarb secondary to GI losses. Patient was ordered IV fluids Zofran as well as Tylenol and a lidocaine patch. BioFire negative. I did speak the on-call hospital service after informing the findings and recommendations. Patient was admitted by Dr. Pedro. Discussion w/ other healthcare providers: Dr. Pedro inpatient medicine service Prior /Outside records reviewed: I reviewed part of a primary care visit from 05/04/2024. Patient seen by YASMINE Montanez at that time. Patient with a known prior history of kidney transplant. PBC hypertension MGUS liver transplant COPD Differential diagnosis: Gastroenteritis, food borne illness, infection, appendicitis, diverticulitis, inflammatory bowel disease, obstruction among others were considered. Diagnostics, as interpreted by me: ECG: None Cardiac monitoring: An order was placed for continuous cardiac monitoring. The monitor shows a rate of 75 with sinus rhythm. Patient was placed on pulse oximetry Medical decision rules: None Imaging studies: None HPI: Patient presents due to concern for nausea vomiting diarrhea. Patient ports has been ongoing about 3 to 4 days. The patient states that in the last 1 days she is vomited and had diarrhea about 5 total times. No blood in the stool. Patient denies any dysuria or hematuria. The patient is still making urine. Patient has been trying to take some fluid cold medication. The patient has had some associated headache and lower back pain. Patient denies any numbness ting or focal weakness in the lower extremities. Patient describes it as a throbbing ache in her lower back. No numbness tingling or focal weakness and no bowel bladder incontinence or retention. Patient does have a known prior history of liver and kidney transplant and on immunosuppressive therapy as well as immunotherapy. The cancer center. Patient denies any known sick contacts or recent travel. No recent antibiotic use. The patient denies any cough or fever. Patient states that she has felt warm and chilled but no documented fever at home. Patient denies any chest pains or shortness of breath. Patient denies any exotic pets or farm animals. PAST MEDICAL HISTORY: See Below PAST SURGICAL HISTORY: See Below SOCIAL HISTORY: See Below HOME MEDICATIONS: See Below ALLERGIES: See Below VITALS: See Below PHYSICAL EXAMINATION: GENERAL: NAD, non-toxic. EYE EXAM: Normal conjunctiva. PERRL, no anisocoria and EOM's grossly intact w/o pain. OROPHARYNX: Moist mucus membranes, grossly normal dentition. NECK: Trachea midline, no stridor. Supple, no nuchal rigidity, no adenopathy, non-tender. No signs of meningismus. FROM of the neck with good chin to chest and neck extension. LUNGS: Clear to auscultation. Normal chest wall mechanics. HEART: NSR, no MRG. ABDOMEN: Abdomen soft, non-tender, no masses, no rebound or guarding. BACK: No CVA TTP. Mild low back discomfort without overlying skin changes. SKIN: No rashes and no bruising. UPPER EXTREMITIES: Upper extremities are grossly normal. LOWER EXTREMITIES: Grossly normal, no edema. No saddle anesthesia. NEURO EXAM: A&O x3, cranial nerves II-XII grossly intact, normal speech, moves all 4 extremities. Past Med/Surg History Problem List (Updated 12/22/24 @ 18:21 by Matt Tavera MD) Renal transplant recipient (Acute) Acute hyperkalemia (Acute) Nausea vomiting and diarrhea (Acute) MADELEINE (acute kidney injury) (Acute) Liver transplant recipient Type 2 diabetes mellitus Acute worsening of stage 3 chronic kidney disease Corneal abrasion, right Nausea & vomiting Hematuria, gross -donor kidney transplant recipient Dyspnea Thrombotic microangiopathy History of colon polyps Abnormal CT scan of lung Morbid obesity with BMI of 40.0-44.9, adult Neutropenia Pancytopenia Peripheral edema Diarrhea Proteinuria Lumbar pain with radiation down both legs Urinary incontinence, urge Diabetes mellitus with neurological manifestations, uncontrolled (Chronic) Diabetes 1.5, managed as type 1 (Chronic) Trigger finger of right hand Trigger finger of left hand Environmental allergies Hx of compression fracture of spine L1 and L4 Low back pain Anemia aplastic aregenerative (Acute) Dyslipidemia (Chronic) Enthesopathy of foot (Chronic) Gastroparesis (Acute) 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) Microscopic hematuria (Acute) Diabetic neuropathy (Chronic) Vitamin D deficiency (Chronic) Osteoarthritis Primary biliary cirrhosis GERD (gastroesophageal reflux disease) Cholestatic pruritus Anemia of chronic disease (Chronic) Plaque psoriasis Hypertension MGUS (monoclonal gammopathy of unknown significance) (Chronic) Osteopenia (Acute) Peripheral neuropathy (Chronic) Liver transplant recipient (Chronic ~10/13/18) [facility] 10/13/18 Bilateral foot-drop (Chronic) 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) Degenerative disc disease, lumbar (Chronic) Medical History MADELEINE (acute kidney injury) Dehydration Hyperkalemia Hyperglycemia Fever Hypomagnesemia Leukopenia Acute hyperkalemia History of compression fracture of vertebral column (05/14/22) lumbar vertebra compression fracture History of vertebral fracture (~03/12/19) L1-L3 stress fractures Ambulatory dysfunction Limb alert care status LUE AV fistual Poor venous access frequent infusions Hx of respiratory syncytial virus infection (~12/2023) admitted at [facility] x 5 days, History of COVID-19 (~10/2023) admitted at [facility] x 1 week, resolved DM type 2 (diabetes mellitus, type 2) IDDM COPD (chronic obstructive pulmonary disease) Follows Pulmonology in [facility] Osteoarthritis GERD (gastroesophageal reflux disease) Surgical History S/P kidney transplant Hx of esophagogastroduodenoscopy Hx of appendectomy Kidney transplant recipient (~11/2023) right side, [facility], follows with Keesha Lopez S/P arteriovenous (AV) graft placement LUE - not currently in use History of lumbar laminectomy for spinal cord decompression (04/22/21) L3-L5 laminectomy History of total abdominal hysterectomy and bilateral salpingo-oophorectomy History of section X 2 History of colonoscopy History of tooth extraction Nasal polyp X 3 REMOVED History of tonsillectomy Family History Unknown Adopted Social History Smoking Status: Never smoker Second Hand Exposure: No; Do You Dip or Chew Tobacco: No; Hx Alcohol Use: No Hx Substance Use: No Preferred Language: Khmer Communication Ability: Effective Visual Impairment: No Limitations Hearing Ability: Normal Web Offset Press Feeder Required: No Beliefs That Will Affect Care: None marital status: Current Living Situation: Spouse Current Living Situation Comment: Lives at home with , son, and daughter current occupational status: employed How many Children do You have: 3 Feels Safe at Home: Yes Childhood Exposure to Second-Hand Smoke: No Diet: low carbohydrate caffeine: Yes during the past year weight has: remained stable Dental Care, Regularly: No Physical Activity Frequency: Daily Seatbelt Use: always Sunscreen Use: No Assistive Devices: None Allergies Allergies Allergy/AdvReac Type Severity Reaction Status Date / Time Iodinated Contrast Media Allergy Intermediate Sneezing Verified 12/06/24 12:51 and breaks out into a rash doxycycline AdvReac Intermediate Vomiting Verified 12/06/24 12:51 metformin AdvReac Intermediate Gastrointestinal Verified 12/06/24 12:51 Upset Home Meds Home Medications Medication Instructions Recorded Confirmed blood-glucose sensor (Dexcom G7 08/17/23 12/19/24 Sensor device) sodium zirconium cyclosilicate 10 10 g PO QAM 05/03/24 12/19/24 gram oral powder packet (Lokelmd) metoprolol succinate 25 mg 25 mg PO QAM 06/07/24 12/19/24 tablet,extended release 24 hr insulin glargine 100 unit/mL (3 8 unit subcut QAM 07/11/24 12/19/24 mL) subcutaneous pen (Lantus Solostar U-100 Insulin) magnesium oxide See Rx Instructions .Route .COMPLEX 12/19/24 12/19/24 mycophenolate sodium 180 mg 360 mg PO BID 12/19/24 12/19/24 tablet,delayed release tacrolimus 0.5 mg capsule, 0.5 mg PO QAM 12/19/24 12/19/24 immediate-release tacrolimus 1 mg capsule, 1 mg PO BID 12/19/24 12/19/24 immediate-release Previous Rx's Medication Instructions Recorded miscellaneous medical supply #1 L 01/05/24 pen needle, diabetic 32 gauge x #400 ea 06/15/24" (BD Ultra-Fine Leilani Pen Needle) insulin lispro 100 unit/mL See Rx Instructions subcut 08/30/24 subcutaneous pen (Humalog KwikPen USEASDIRECTD #60 mL (U-100) Insulin) pantoprazole 40 mg tablet,delayed 40 mg PO QAM #90 tabs 09/01/24 release amoxicillin 875 mg-potassium 1 tab PO Q12H #14 tabs 12/22/24 clavulanate 125 mg tablet ondansetron 4 mg disintegrating 4 mg PO Q8H 5 days #15 tabs 12/22/24 tablet Results & Data (ED) Vital Signs Vital Signs - 24 hr 12/19/24 15:32 12/19/24 16:14 Temperature 36.8 C Temperature Source Temporal Artery Scan Pulse Rate 82 Pulse Rate [Finger] 70 Respiratory Rate 18 16 Respiratory Effort / Characteristics Non-Labored Spontaneous Respiratory Depth Normal Blood Pressure 156/67 H Blood Pressure [Right Arm] 158/64 H Blood Pressure Mean 96 Blood Pressure Mean [Right Arm] 95 Blood Pressure Position [Right Arm] Semi-fowlers Pulse Oximetry 99 99 Oxygen Delivery Method Room Air Sepsis Recent Fever Within 48 Hours No Sepsis New/Unexplained Change in Mental Status N/A Sepsis Action Taken by Nursing No Action Required Home Medications Current Medication List: was personally reviewed by me Laboratory Data Attestation: I reviewed the patient's lab results. 12/22/24 10:05 12/22/24 10:05 Lab Results 12/19/24 12/19/24 Range/Units 15:55 18:28 WBC 3.22 L (4.8-10.8) K/ul RBC 3.88 L (4.20-5.40) M/uL Hgb 11.6 L (12.0-16.0) g/dl Hct 33.5 L (37.0-47.0) % MCV 86.3 (80.0-100.0) fL MCH 29.9 (25.0-34.0) pg MCHC 34.6 (32.0-36.0) g/dL RDW Std Deviation 40.2 (36.4-46.3) fL RDW Coeff of Paty 12.9 (11.5-14.5) % Plt Count 156 (130-400) K/uL MPV 10.5 (9.4-12.4) fL Immature Gran % (Auto) 4.7 % Neut % (Auto) 60.2 % Lymph % (Auto) 19.9 % [place] % (Auto) 14.9 % Eos % (Auto) 0.0 % Baso % (Auto) 0.3 % Neut # (Auto) 1.94 (1.40-6.50) K/uL Lymph # (Auto) 0.64 L (1.20-3.40) K/uL [place] # (Auto) 0.48 (0.11-0.59) K/uL Eos # (Auto) 0.00 (0.00-0.50) K/uL Baso # (Auto) 0.01 (0.00-0.20) K/uL Immature Gran # (Auto) 0.15 (0.01-0.20) K/uL Sodium 133 L (136-145) mmol/L Potassium 5.6 H (3.5-5.1) mmol/L Chloride 108 H (98-107) mmol/L Carbon Dioxide 17 L (21-32) mmol/L Anion Gap 8 (3-11) BUN 62 H (6-23) mg/dl Creatinine 2.51 H (0.6-1.2) mg/dl Est Cr Clr Drug Dosing 19.3 ml/min eGFR 21.11 BUN/Creatinine Ratio 24.7 H (10-20) Glucose 219 H (70-99(Fasting)) mg/dl Calcium 9.2 (8.6-10.3) mg/dl Total Bilirubin 1.0 (0.2-1.0) mg/dl AST 15 (13-39) U/L ALT 9 (7-52) U/L Alkaline Phosphatase 104 (34-104) U/L Total Protein 6.6 (6.0-8.3) gm/dl Albumin 3.5 (3.4-5.0) gm/dl Globulin 3.1 (2.5-4.0) gm/dl Albumin/Globulin Ratio 1.1 (0.9-2) Urine Color Yellow Urine Appearance Clear (Clear) Urine pH 5.0 (4.5-7.5) Ur Specific [place] 1.017 (1.000-1.030) Urine Protein Negative (Negative) Urine Glucose (UA) Negative (Negative) Urine Ketones Trace H (Negative) Urine Blood Negative (Negative) Urine Nitrite Negative (Negative) Urine Bilirubin Negative (Negative) Urine Urobilinogen Negative (Negative) Ur Leukocyte Esterase 1+ H (Negative) Urine WBC (Auto) 6-10 H (0-5) /hpf Urine RBC (Auto) 0-2 (0-2) /hpf U Hyaline Cast (Auto) 11-20 H (0-2) /lpf U Epithel Cells (Auto) 3-5 H (0-2) /hpf Urine Bacteria (Auto) 1+ H (None Seen) Ur Renal Epithelial Cell Present A (None Presnt) /lpf Adenovirus (PCR) Not Detected (NotDetected) B. pertussis DNA (PCR) Not Detected (NotDetected) B.parapertussis DNA PCR Not Detected (NotDetected) C. pneumoniae DNA (PCR) Not Detected (NotDetected) Coronavirus OC43 (PCR) Not Detected (NotDetected) Coronavirus HKU1 (PCR) Not Detected (NotDetected) Coronavirus 229E (PCR) Not Detected (NotDetected) SARS-CoV-2 (PCR) Not Detected (NotDetected) Coronavirus NL63 (PCR) Not Detected (NotDetected) Human Metapneumovir PCR Not Detected (NotDetected) Influenza Type A (PCR) Not Detected (NotDetected) Influenza Type B (PCR) Not Detected (NotDetected) M. pneumoniae (PCR) Not Detected (NotDetected) Parainfluenza 1 (PCR) Not Detected (NotDetected) Parainfluenza 2 (PCR) Not Detected (NotDetected) Parainfluenza 3 (PCR) Not Detected (NotDetected) Parainfluenza 4 (PCR) Not Detected (NotDetected) RSV (PCR) Not Detected (NotDetected) Entero/Rhino (PCR) Not Detected (NotDetected) Administered Medications Discontinued Medications Acetaminophen (Acetaminophen 325 Mg Tab) 650 mg PO Q4H PRN PRN Reason: Pain or Fever Stop: 01/18/25 20:46 Last Admin: 12/20/24 00:53 Dose: 650 mg Documented By: PATRICA Amoxicillin (Amoxicillin 250 Mg Cap) 250 mg PO BID HYACINTH; Protocol Stop: 01/18/25 20:59 Last Admin: 12/22/24 08:23 Dose: 250 mg Documented By: Admin: 12/21/24 20:52 Dose: 250 mg Documented By: Admin: 12/21/24 08:41 Dose: 250 mg Documented By: Admin: 12/20/24 22:05 Dose: 250 mg Documented By: Admin: 12/20/24 09:00 Dose: 250 mg Documented By: Admin: 12/20/24 00:53 Dose: 250 mg Documented By: PATRICA Heparin Sodium (Porcine) (Heparin Sod 5,000 Unit/0.5 Ml Vial) 5,000 units SQ Q12 HYACINTH Stop: 01/18/25 20:59 Last Admin: 12/22/24 08:34 Dose: 5,000 units Documented By: Admin: 12/21/24 20:52 Dose: 5,000 units Documented By: Admin: 12/21/24 08:43 Dose: 5,000 units Documented By: Admin: 12/20/24 22:06 Dose: 5,000 units Documented By: Admin: 12/20/24 09:07 Dose: 5,000 units Documented By: Admin: 12/19/24 21:31 Dose: 5,000 units Documented By: DEJA Sodium Chloride (Nss) 1,000 mls @ 999 mls/hr IV .Q1H1M ONE Stop: 12/19/24 18:05 Last Infusion: 12/19/24 18:40 Dose: Infused Documented By: Admin: 12/19/24 17:24 Dose: 999 mls/hr Documented By: MMF Acetaminophen (Ofirmev) 1,000 mg in 100 mls @ 400 mls/hr IV NOW STA Stop: 12/19/24 17:30 Last Infusion: 12/19/24 17:45 Dose: Infused Documented By: Admin: 12/19/24 17:24 Dose: 400 mls/hr Documented By: MMF Lactated Ringer's (Lr) 1,000 mls @ 999 mls/hr IV .Q1H1M ONE Stop: 12/19/24 18:32 Last Admin: 12/19/24 19:42 Dose: Not Given Documented By: MMF Famotidine (Pepcid 20mg Iv Push) 20 mg in 5 mls @ 2.5 mls/min IV Q12H HYACINTH Stop: 01/18/25 18:29 Last Admin: 12/22/24 06:22 Dose: 2.5 mls/min Documented By: Admin: 12/21/24 18:43 Dose: 2.5 mls/min Documented By: Admin: 12/21/24 07:42 Dose: 2.5 mls/min Documented By: Admin: 12/20/24 17:59 Dose: 2.5 mls/min Documented By: Admin: 12/20/24 06:18 Dose: 2.5 mls/min Documented By: Admin: 12/19/24 19:31 Dose: 2.5 mls/min Documented By: DEJA Sodium Bicarbonate 150 meq/ (Dextrose) 1,150 mls @ 125 mls/hr IV .Q9H12M HYACINTH Stop: 12/20/24 10:29 Last Infusion: 12/20/24 12:06 Dose: Infused Documented By: Admin: 12/20/24 06:18 Dose: 125 mls/hr Documented By: Infusion: 12/20/24 05:45 Dose: Infused Documented By: Admin: 12/19/24 19:38 Dose: 125 mls/hr Documented By: DEJA Calcium Gluconate () 1,000 mg in 60 mls @ 240 mls/hr IV NOW STA Stop: 12/19/24 23:10 Last Infusion: 12/20/24 02:14 Dose: Infused Documented By: Admin: 12/20/24 00:57 Dose: 240 mls/hr Documented By: PATRICA Sodium Chloride (Nss) 1,000 mls @ 80 mls/hr IV .[id number] HYACINTH Stop: 12/21/24 07:29 Last Infusion: 12/21/24 18:21 Dose: Infused Documented By: Admin: 12/21/24 05:19 Dose: 80 mls/hr Documented By: Infusion: 12/21/24 05:18 Dose: Infused Documented By: Admin: 12/20/24 08:00 Dose: 80 mls/hr Documented By: ROBERT Insulin Aspart (Insulin Aspart Per Unit Charge) 0 units SC ACHS HYACINTH Stop: 01/18/25 20:59 Last Admin: 12/19/24 21:31 Dose: 1 units Documented By: DEJA Co-signed By: JENI Insulin Aspart (Insulin Aspart Per Unit Charge) 0 units SC ACHS HYACINTH Stop: 01/19/25 07:29 Last Admin: 12/22/24 12:39 Dose: 3 units Documented By: ARLENE Co-signed By: Admin: 12/22/24 08:33 Dose: 4 units Documented By: ARLENE Co-signed By: Admin: 12/21/24 20:25 Dose: Not Given Documented By: Admin: 12/21/24 18:15 Dose: 3 units Documented By: ANCELMO Co-signed By: STEPH Admin: 12/21/24 12:42 Dose: 4 units Documented By: ANCELMO Co-signed By: NATHANIEL Admin: 12/21/24 08:43 Dose: 2 units Documented By: ANCELMO Co-signed By: NATHANIEL Admin: 12/20/24 20:42 Dose: Not Given Documented By: Admin: 12/20/24 17:51 Dose: 1 units Documented By: ROBERT Co-signed By: NATHANIEL Admin: 12/20/24 12:49 Dose: 2 units Documented By: ROBERT Co-signed By: Admin: 12/20/24 09:02 Dose: 8 units Documented By: ROBERT Co-signed By: Insulin Glargine (Lantus Per Unit Charge) 12 units SQ BID [facility] Stop: 01/19/25 08:59 Last Admin: 12/22/24 08:32 Dose: 12 units Documented By: ARLENE Co-signed By: Admin: 12/21/24 20:51 Dose: 12 units Documented By: FELICIANO Co-signed By: [facility] Admin: 12/21/24 08:44 Dose: 12 units Documented By: ANCELMO Co-signed By: NATHANIEL Admin: 12/20/24 22:07 Dose: 12 units Documented By: JAY Co-signed By: JENNIFER Admin: 12/20/24 09:01 Dose: 12 units Documented By: ROBERT Co-signed By: Lidocaine (Lidocaine 5% 1 Patch) 1 patch TD NOW STA Stop: 12/19/24 17:17 Last Admin: 12/19/24 17:24 Dose: 1 patch Documented By: DEJA Magnesium Oxide (Magnesium Oxide 400 Mg Tab) 800 mg PO MoWeFr@0730 [facility] Stop: 01/19/25 07:29 Last Admin: 12/22/24 08:24 Dose: 800 mg Documented By: Admin: 12/20/24 08:59 Dose: 800 mg Documented By: ROBERT Magnesium Oxide (Magnesium Oxide 400 Mg Tab) 400 mg PO SuTuThSa@0730 [facility] Stop: 01/20/25 07:29 Last Admin: 12/21/24 08:41 Dose: 400 mg Documented By: ANCELMO Metoprolol Succinate (Metoprolol Succ 25mg Ext Rel Tab) 25 mg PO [place] Stop: 01/19/25 08:59 Last Admin: 12/22/24 08:24 Dose: 25 mg Documented By: Admin: 12/21/24 08:41 Dose: 25 mg Documented By: Admin: 12/20/24 08:59 Dose: 25 mg Documented By: ROBERT Miscellaneous (Remove Lidoderm Patch) 1 each N/A TODAY@0524 ONE Stop: 12/20/24 05:25 Last Admin: 12/20/24 06:18 Dose: 1 each Documented By: PATRICA Ondansetron HCl (Ondansetron Inj 2 Mg/Ml 2 Ml Vial) 4 mg IV NOW STA Stop: 12/19/24 17:07 Last Admin: 12/19/24 17:24 Dose: 4 mg Documented By: DEJA Ondansetron HCl (Ondansetron Inj 2 Mg/Ml 2 Ml Vial) 4 mg IV Q4H PRN PRN Reason: Nausea Stop: 01/19/25 12:09 Last Admin: 12/20/24 12:49 Dose: 4 mg Documented By: ROBERT Sodium Zirconium Cyclosilicate (Sodium Zirconium Cyclosilicate 10 Gm Packet) 10 gm PO DAILY@1100 HYACINTH; Protocol Stop: 01/19/25 10:59 Last Admin: 12/22/24 12:23 Dose: 10 gm Documented By: Admin: 12/21/24 12:10 Dose: 10 gm Documented By: Admin: 12/20/24 11:57 Dose: 10 gm Documented By: ROBERT Sodium Zirconium Cyclosilicate (Sodium Zirconium Cyclosilicate 10 Gm Packet) 10 gm PO NOW STA Stop: 12/19/24 20:52 Last Admin: 12/19/24 21:31 Dose: 10 gm Documented By: DEJA Tacrolimus (Tacrolimus 1 Mg Cap) 1 mg PO Q12H [facility] Stop: 01/18/25 22:59 Last Admin: 12/22/24 12:23 Dose: 1 mg Documented By: Admin: 12/21/24 20:53 Dose: 1 mg Documented By: Admin: 12/21/24 12:10 Dose: 1 mg Documented By: Admin: 12/20/24 22:09 Dose: 1 mg Documented By: Admin: 12/20/24 11:57 Dose: 1 mg Documented By: Admin: 12/20/24 00:53 Dose: 1 mg Documented By: PATRICA Tacrolimus (Tacrolimus 0.5 Mg Cap) 0.5 mg PO QAM HYACINTH Stop: 01/19/25 08:59 Last Admin: 12/22/24 08:23 Dose: 0.5 mg Documented By: Admin: 12/21/24 08:41 Dose: 0.5 mg Documented By: Admin: 12/20/24 08:59 Dose: 0.5 mg Documented By: ROBERT Tetracaine HCl (Tetracaine Hcl 0.5% (Ophth) 60 Drops/4 Ml Btl) 1 drops OPR QID HYACINTH Stop: 01/19/25 12:59 Last Admin: 12/22/24 08:24 Dose: 1 drops Documented By: Admin: 12/21/24 20:52 Dose: 1 drops Documented By: Admin: 12/21/24 18:15 Dose: 1 drops Documented By: Admin: 12/21/24 12:42 Dose: 1 drops Documented By: Admin: 12/21/24 08:40 Dose: 1 drops Documented By: Admin: 12/20/24 22:08 Dose: 1 drops Documented By: Admin: 12/20/24 17:51 Dose: 1 drops Documented By: Admin: 12/20/24 11:57 Dose: 1 drops Documented By: ROBERT Discharge Plan Visit Data Chief Complaint: Flu Like Symptoms Stated Complaint: FLU LIKE SYMP ED Provider: Matt Tavera Discharge Problem: MADELEINE (acute kidney injury), Nausea vomiting and diarrhea, Acute hyperkalemia, Renal transplant recipient Patient Disposition: Admitted As Inpatient Discharge Instructions Interventions: ED Discharge Assessment Last Done: 12/19/24 20:47
--- NOTE | 2024-12-19 17:18 | History & Physical Report ---
Date of Service December 19, 2024 Assessment & Plan (1) Nausea & vomiting: Plan: Rhona is a 62-year-old female with a history of liver transplant, renal transplant who presents with nausea/vomiting/diarrhea and prerenal MADELEINE Nausea/vomiting/diarrhea 3-4 days of nausea, nonbloody/nonbilious emesis, and liquid brown diarrhea. No blood/melena Suspect viral GI illness. Is at risk of C. difficile due to chronic antibiotic use. Also risk of opportunistic infections due to chronic transplant immunosuppressants CTA/P of the abdomen ordered. She was pending this as an outpatient for hematuria, and additionally does have some flank pain with a transplanted right kidney 1 L NSS ordered Hyperkalemic without peaked T waves. Has not been able to keep her Lokelma down due to nausea/vomiting S/p 1 L NSS with clinical improvement She has a underlying hyperchloremic metabolic acidosis and hyperkalemia. Will transition to bicarb drip x 2 L No leukocytosis, no fevers. UA is pending - Mild RLQ abd tenderness on palpation. No rebound/guarding. No dysuria QTc 490. Mildly prolonged. Follow on telemetry, use Zofran with caution. If QTc greater than 500 discontinue use. Once rehydrated and electrolytes improved repeat EKG. Magnesium added CTA/P without acute concerns or infectious findings With continued nausea on reassessment. Will hold mycophenolate, continue Prograf with trough level pending. History of liver and renal transplant Liver transplant 10/2018 at [facility] due to biliary cirrhosis, renal transplant 11/2023 after microangiopathy and nonimmune membranoproliferative glomerulonephritis Currently on prednisone, tacrolimus, mycophenolate Continue valganciclovir, amoxicillin. Patient reports her Bactrim PPx was discontinued - facilities coordinator Namita at [phone]. Voicemail left at time of admission notifying of admission and plan MADELEINE on CKD, suspect prerenal S/p R renal transplant 11/2023 as noted Has baseline creatinine around 1.1 Admitting creatinine 2.51, elevated ratio, appears volume contracted and with several days of diarrhea and poor p.o. intake Does have history of recent microhematuria pending further evaluation as noted Lungs are clear, no acute EKG changes. No indication for dialysis at time of admission. If needed does have a intact left AC fistula. Microhematuria CTA/P without acute findings/concerns If otherwise well can follow-up with urology as outpatient DM type 1.5 [employer]ST on Lantus 8 units a.m., Humalog 8 5 8 with meals. 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 s/p Tx w/ eculizumanb - MGUS: Followed as outpatient, no acute change in management. 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 Nausea and vomiting x4 days. Severe back pain across her lower back where she had kidney pain in the past. Began 4 days ago. No appetite. Zofran helped a little but not much. BSGs elevated 250s-300s last few days, normally <200s. A1C improved 9.7 to 7.6% last checkup. BSG normally 130-150, but last few days has been high and difficulty to control. No shortness of breath. No chest pain. No cough. +Rhinorrhea +diarrhea loose/liquid x4 days. On amoxicillin BID chronically for meningitis ppx. Was previously on Bactrim treatment but this was discontinued by [facility] team at [facility]. Last saw end of November. Adjusted her tacrolimus to 1.5 am, 1pm. peeing normally last few days. no blood in the urine last few days. Renal transplant Nov 2023 Liver transplant 2018 No issues with either of her transplant. "I watch what I eat and try and follow the rules really close." Had microhematuria as outpatient. Pending cysto and CT with [facility]. Has not been taking Lokelma due to vomiting Medical History: Reviewed Medications: Reviewed Surgical History: Reviewed Family history: Reviewed Allergies: Reviewed Social History: No tobacco/ETOH Code Status: Full Allergies Allergy/AdvReac Type Severity Reaction Status Date / Time Iodinated Contrast Media Allergy Intermediate Sneezing Verified 12/06/24 12:51 and breaks out into a rash doxycycline AdvReac Intermediate Vomiting Verified 12/06/24 12:51 metformin AdvReac Intermediate Gastrointestinal Verified 12/06/24 12:51 Upset Home Medications Medication Instructions Recorded Confirmed Type blood-glucose sensor (Dexcom G7 08/17/23 12/19/24 History Sensor device) miscellaneous medical supply #1 L 01/05/24 12/19/24 Rx sodium zirconium cyclosilicate 10 10 g PO QAM 05/03/24 12/19/24 History gram oral powder packet (Lokelma) amoxicillin 250 mg capsule 250 mg PO BID 06/07/24 12/19/24 History metoprolol succinate 25 mg 25 mg PO QAM 06/07/24 12/19/24 History tablet,extended release 24 hr pen needle, diabetic 32 gauge x #400 ea 06/15/24 12/19/24 Rx 5/32" (BD Ultra-Fine Leilani Pen Needle) insulin glargine 100 unit/mL (3 8 unit subcut QAM 07/11/24 12/19/24 History mL) subcutaneous pen (Lantus Solostar U-100 Insulin) insulin lispro 100 unit/mL See Rx Instructions subcut 08/30/24 12/19/24 Rx subcutaneous pen (Humalog KwikPen USEASDIRECTD #60 mL (U-100) Insulin) pantoprazole 40 mg tablet,delayed 40 mg PO QAM #90 tabs 09/01/24 12/19/24 Rx release magnesium oxide See Rx Instructions .Route .COMPLEX 12/19/24 12/19/24 History mycophenolate sodium 180 mg 360 mg PO BID 12/19/24 12/19/24 History tablet,delayed release tacrolimus 0.5 mg capsule, 0.5 mg PO QAM 12/19/24 12/19/24 History immediate-release tacrolimus 1 mg capsule, 1 mg PO BID 12/19/24 12/19/24 History immediate-release Past Med/Surg History Problem List (Updated 12/19/24 @ 18:03 by Marcus Pedro MD) Nausea & vomiting Hematuria, gross -donor kidney transplant recipient Dyspnea Thrombotic microangiopathy History of colon polyps Abnormal CT scan of lung Morbid obesity with BMI of 40.0-44.9, adult Neutropenia Pancytopenia Peripheral edema Diarrhea Proteinuria Lumbar pain with radiation down both legs Urinary incontinence, urge Diabetes mellitus with neurological manifestations, uncontrolled (Chronic) Diabetes 1.5, managed as type 1 (Chronic) Trigger finger of right hand Trigger finger of left hand Environmental allergies Hx of compression fracture of spine L1 and L4 Low back pain Anemia aplastic aregenerative (Acute) Dyslipidemia (Chronic) Enthesopathy of foot (Chronic) Gastroparesis (Acute) 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) Microscopic hematuria (Acute) Diabetic neuropathy (Chronic) Vitamin D deficiency (Chronic) Osteoarthritis Primary biliary cirrhosis GERD (gastroesophageal reflux disease) Cholestatic pruritus Anemia of chronic disease (Chronic) Plaque psoriasis Hypertension MGUS (monoclonal gammopathy of unknown significance) (Chronic) Osteopenia (Acute) Peripheral neuropathy (Chronic) Liver transplant recipient (Chronic ~10/13/18) [facility] 10/13/18 Bilateral foot-drop (Chronic) 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) Degenerative disc disease, lumbar (Chronic) Medical History MADELEINE (acute kidney injury) Dehydration Hyperkalemia Hyperglycemia Fever Hypomagnesemia Leukopenia Acute hyperkalemia History of compression fracture of vertebral column (05/14/22) History of vertebral fracture (~03/12/19) Ambulatory dysfunction Limb alert care status Poor venous access Hx of respiratory syncytial virus infection (~12/2023) History of COVID-19 (~10/2023) DM type 2 (diabetes mellitus, type 2) COPD (chronic obstructive pulmonary disease) Osteoarthritis GERD (gastroesophageal reflux disease) Surgical History S/P kidney transplant Hx of esophagogastroduodenoscopy Hx of appendectomy Kidney transplant recipient (~11/2023) S/P arteriovenous (AV) graft placement History of lumbar laminectomy for spinal cord decompression (04/22/21) History of total abdominal hysterectomy and bilateral salpingo-oophorectomy History of section History of colonoscopy History of tooth extraction Nasal polyp History of tonsillectomy Family History Unknown Adopted Social History Smoking Status: Never smoker Second Hand Exposure: No; Do You Dip or Chew Tobacco: No; Hx Alcohol Use: No Hx Substance Use: No Preferred Language: Divehi Communication Ability: Effective Visual Impairment: No Limitations Hearing Ability: Normal Venetian Blind Washer Required: No Beliefs That Will Affect Care: None marital status: Current Living Situation: Spouse Current Living Situation Comment: Lives at home with , son, and daughter current occupational status: employed How many Children do You have: 3 Feels Safe at Home: Yes Childhood Exposure to Second-Hand Smoke: No Diet: low carbohydrate caffeine: Yes during the past year weight has: remained stable Dental Care, Regularly: No Physical Activity Frequency: Daily Seatbelt Use: always Sunscreen Use: No Assistive Devices: Cane and Walker Physical Exam Physical Exam: General: A&Ox3. NAD. Cooperative. HEENT: Atraumatic, normocephalic. Vision/hearing grossly intact Pulm: CTAB A&P. -wheezes, -rales, -rhonchi. Symmetrical chest rise. No increased work of breathing. No respiratory distress. Cardiac: RRR, -mrg. Radial pulses intact and symmetrical. Abdominal: Mild right lower quadrant tenderness to palpation. No rebound/guarding. Endorses some mild bilateral CVA tenderness on percussion. Extremities: Warm, dry. Left upper extremity is with AV fistula intact with good thrill with no overlying warmth/tenderness. Results & Data Results & Data Vital Signs (Past 12 Hours) Vital Signs Temp Pulse Pulse Resp BP BP Pulse Ox 12/19/24 16:14 70 16 158/64 H 99 12/19/24 15:32 36.8 C 82 18 156/67 H 99 O2 Del Method 12/19/24 16:14 Room Air 12/19/24 15:32 PG Care Time/CCT Total # of Minutes Spent Total Time Spent with Patient: Total time spent is greater than 50% in coordination of care (as documented) at patient's floor/unit and/or counseling patient: Coding Level of Care Code 00943 INT INP/OBS CARE 3MIN Diagnoses Nausea & vomiting R11.2 Diabetes 1.5, managed as type 1 E13.9 Gastroesophageal reflux disease, esophagitis presence not specified K21.9 Esophagitis presence: esophagitis presence not specified Primary biliary cirrhosis K74.3 MGUS (monoclonal gammopathy of unknown significance) D47.2 Liver transplant recipient Z94.4 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
[2024-12-19] MEDS: ONDANSETRON INJ 2 MG/ML 2 ML VIAL IV STA (17:24)
[2024-12-19] MEDS: ACETAMINOPHEN 1,000 MG/100 ML VIAL IV STA (17:24)
[2024-12-19] MEDS: LIDOCAINE 5% 1 PATCH TD STA (17:24)
[2024-12-19] MEDS: SODIUM CHLORIDE 0.9% 1,000 ML IV ONE (17:24)
--- NOTE | 2024-12-19 18:18 | CT Scan Report ---
EXAMINATION: CT of the abdomen and pelvis performed without contrast TECHNIQUE: Helical CT images from the lung bases through the symphysis pubis were obtained without contrast. Coronal and sagittal reformatted images were generated at a workstation for further assessment. Dose reduction techniques were achieved by using automatic exposure control and/or adjustment of mA and/or kV according to patient size and/or use of iterative reconstruction technique. COMPARISON: 05/24/2023 HISTORY: Abdominal pain FINDINGS: Lower chest: No consolidation. No pleural effusion or pneumothorax. Liver: No suspicious liver lesions. Liver transplant changes. Gallbladder: No gallstones. No evidence of acute cholecystitis. Spleen: Normal size. Pancreas: No suspicious pancreatic lesions. The pancreatic duct is not dilated. Adrenal glands: No adrenal nodules. Kidneys: No hydronephrosis or obstructing renal stones. Atrophic [place] kidneys. Right lower quadrant transplant kidney appears unremarkable without hydronephrosis or stone. Bladder / Pelvic organs: Unremarkable. Bowel: No bowel obstruction. No abnormal bowel wall thickening. The appendix is unremarkable. Lymph nodes: No retroperitoneal, mesenteric, or pelvic lymphadenopathy. Peritoneum / Retroperitoneum: No free fluid or air within the abdomen. Vessels: No infrarenal aortic aneurysm. Redemonstrated are numerous, large medial left upper quadrant venous collaterals, representing portosystemic shunts, communicating with the splenic and left renal vein. Bones and soft tissues: No suspicious lesion in the bones. Fixation changes of the lumbar spine and laminectomy changes are seen. Perihardware lucency about the screws at L5, suggest loosening. Chronic appearing anterior L1 wedge deformity. IMPRESSION: No acute findings or significant change. Stable appearing hepatic and right lower quadrant renal transplant. Redemonstrated several large left upper quadrant splenorenal shunts, suggesting sequelae of portal venous hypertension. Electronically signed by Johnny Epperson 12-19-2024 6:18 PM
[2024-12-19] MEDS ORDERED: STAT IV/IM STA (18:20)
[2024-12-19] MEDS ORDERED: CARBOHYDRATES FOR HYPOGLYCEMIA PO PRN (18:30)
[2024-12-19] MEDS ORDERED: DEXTROSE 50% 50 ML SYRINGE IV PRN (18:30)
[2024-12-19] MEDS ORDERED: GLUCAGON FOR INJ 1 MG VIAL SQ PRN (18:30)
[2024-12-19] MEDS ORDERED: GLUCOSE 40% GEL 15 GM TUBE PO PRN (18:30)
[2024-12-19] MEDS ORDERED: PHARMACY GLYCEMIC MGMT CONSULT PRN (18:30)
[2024-12-19] MEDS ORDERED: GLUCOSE 10 TAB/TUBE PO PRN (18:30)
[2024-12-19 19:31] LABS: Appearance Urine Clear (Clear); Bilirubin Urine Negative (Negative); Blood Urine Negative (Negative); Color Urine Yellow; Glucose Urine UA Negative (Negative); Ketones Urine Trace (Negative); Leukocyte Esterase Urine 1+ (Negative); Nitrite Urine Negative (Negative); Protein Urine Negative (Negative); RBC Urine Automated 0-2 /hpf (0-2); Specific Gravity Urine 1.017 (1.000-1.030); Urobilinogen Urine Negative (Negative)
[2024-12-19] MEDS: FAMOTIDINE 20MG IV PUSH 20 MG/5 ML SYR IV SCH (19:31)
[2024-12-19] MEDS: SODIUM BICARBONATE 8.4% 150 MEQ in DEXTROSE 5% 1,000 ML IV SCH (19:38)
[2024-12-19] MEDS: LACTATED RINGER'S 1,000 ML IV ONE (19:42)
[2024-12-19 19:47] LABS: Bacteria Urine Automated 1+ (None Seen); Renal Epithelial Cells Urine Present /lpf (None Presnt)
[2024-12-19] MEDS ORDERED: Nursing to Pharmacy Communication SCH (20:30)
[2024-12-19] MEDS: SODIUM ZIRCONIUM CYCLOSILICATE 10 GM PACKET PO STA (21:31)
[2024-12-19] MEDS: INSULIN ASPART PER UNIT CHARGE SC SCH (21:31)
[2024-12-19] MEDS: HEPARIN SOD 5,000 UNIT/0.5 ML VIAL SQ SCH (21:31)
[2024-12-19 22:29] LABS: BUN Creatinine Ratio 25.4 (10-20); Calcium 8.4 mg/dl (8.6-10.3); Creatinine Clr Calc Pharmacy 20.6 ml/min; Potassium 6.2 mmol/L (3.5-5.1)
[2024-12-20] MEDS: ACETAMINOPHEN 325 MG TAB PO PRN (00:53)
[2024-12-20] MEDS: AMOXICILLIN 250 MG CAP PO SCH (00:53)
[2024-12-20] MEDS: TACROLIMUS 1 MG CAP PO SCH (00:53)
[2024-12-20] MEDS: CALCIUM GLUCONATE 1,000 MG/60 ML BAG IV STA (00:57)
[2024-12-20 06:37] LABS: Basophils # (auto) 0.01 K/uL (0.00-0.20); Basophils % (auto) 0.5 %; Eosinophils # (auto) 0.01 K/uL (0.00-0.50); Eosinophils % (auto) 0.5 %; Hematocrit (blood only) 29.4 % (37.0-47.0); Hemoglobin 10.4 g/dl (12.0-16.0); Immature Granulocytes # (auto) 0.06 K/uL (0.01-0.20); Immature Granulocytes % (auto) 3.2 %; Lymphocytes % (auto) 26.5 %; Mean Corpuscular Hemoglobin 30.6 pg (25.0-34.0); Mean Corpuscular Hgb Conc 35.4 g/dL (32.0-36.0); Mean Corpuscular Volume 86.5 fL (80.0-100.0); Mean Platelet Volume 10.9 fL (9.4-12.4); Monocytes # (auto) 0.31 K/uL (0.11-0.59); Monocytes % (auto) 16.4 %; Neutrophils % (auto) 52.9 %; Platelet Count 114 K/uL (130-400); RDW Coefficient of Variation 12.4 % (11.5-14.5); RDW Standard Deviation 39.3 fL (36.4-46.3); White Blood Count 1.89 K/ul (4.8-10.8)
[2024-12-20 06:59] LABS: BUN Creatinine Ratio 26.4 (10-20); Calcium 8.3 mg/dl (8.6-10.3); Potassium 5.1 mmol/L (3.5-5.1)
[2024-12-20] MEDS ORDERED: GLUCOSE 10 TAB/TUBE PO PRN (07:23)
[2024-12-20] MEDS ORDERED: DEXTROSE 50% 50 ML SYRINGE IV PRN (07:23)
[2024-12-20] MEDS ORDERED: GLUCAGON FOR INJ 1 MG VIAL SQ PRN (07:23)
[2024-12-20] MEDS ORDERED: GLUCOSE 40% GEL 15 GM TUBE PO PRN (07:23)
[2024-12-20] MEDS ORDERED: CARBOHYDRATES FOR HYPOGLYCEMIA PO PRN (07:23)
[2024-12-20] MEDS ORDERED: MAGNESIUM OXIDE 400 MG TAB PO SCH (07:30)
[2024-12-20] MEDS: SODIUM CHLORIDE 0.9% 1,000 ML IV SCH (08:00)
[2024-12-20] MEDS: TACROLIMUS 0.5 MG CAP PO SCH (08:59)
[2024-12-20] MEDS: METOPROLOL SUCC 25MG EXT REL TAB PO SCH (08:59)
[2024-12-20] MEDS: MAGNESIUM OXIDE 400 MG TAB PO SCH (08:59)
[2024-12-20] MEDS ORDERED: LANTUS PER UNIT CHARGE SQ SCH (09:00)
[2024-12-20] MEDS: LANTUS PER UNIT CHARGE SQ SCH (09:01)
[2024-12-20] MEDS: INSULIN ASPART PER UNIT CHARGE SC SCH (09:02)
--- NOTE | 2024-12-20 11:20 | Electrocardiogram Report ---
Test Reason : Blood Pressure : */* mmHG Vent. Rate : 76 BPM Atrial Rate : 76 BPM P-R Int : 146 ms QRS Dur : 84 ms QT Int : 400 ms P-R-T Axes : 73 -39 42 degrees QTcB Int : 450 ms Normal sinus rhythm Left axis deviation Abnormal ECG When compared with ECG of 14-Aug-2024 18:30, Criteria for Inferior infarct are no longer Present Nonspecific T wave abnormality has replaced inverted T waves in Inferior leads T wave amplitude has decreased in Anterior leads Confirmed by Johnny Obrien ([id number]) on 12/20/2024 11:20:33 AM Referred By: REFERRED SELF Confirmed By: Johnny Obrien
[2024-12-20] MEDS: SODIUM ZIRCONIUM CYCLOSILICATE 10 GM PACKET PO SCH (11:57)
[2024-12-20] MEDS: TETRACAINE HCL 0.5% OPR SCH (11:57)
--- NOTE | 2024-12-20 12:01 | Hospitalist Progress Note ---
Date of Service December 20, 2024 Assessment & Plan (1) Nausea & vomiting: Plan: Suspected viral gastroenteritis on admission. Now resolved. Supportive care. (2) Primary biliary cirrhosis: Plan: Apparent primary reason for the liver transplant. (3) Corneal abrasion, right: Plan: Suspected. Eyedrops with tetracaine have been ordered. Supportive care (4) Acute worsening of stage 3 chronic kidney disease: Plan: Treated with IV fluids. Monitor urine output. Serial labs (5) Type 2 diabetes mellitus: Plan: ADA diet. Sliding scale coverage. Basal insulin therapy (6) Liver transplant recipient: Plan: Known. Currently immunosuppressed from multiple medications. Plan Hopeful discharge to home within the next day or 2 Admission and Anticipated Discharge Date Admission Date: December 19, 2024 Subjective Alert and oriented. She has right eye pain without significant physical findings. I suspect she may have suffered a corneal abrasion. Eyedrops with tetracaine have been ordered. She states she is not prednisone dependent. Creatinine improved to 2.0. Potassium improved to 5.1. Basal insulin therapy uptitrated for better glucose control. Bicarbonate has now normalized and intravenous bicarbonate infusion has been discontinued. Will continue normal saline for now however. Continue supportive care Review of Systems 2 Review of Systems: Constitutionalno fever or chills HEENTright eye pain. No evidence of conjunctivitis. No mattering. No scleral injection. No blurred vision, no double vision, no epistaxis, no sore throat Respiratoryno cough, no wheezing, no shortness of breath Cardiacno palpitations, no chest pain, no syncope Yvonne current nausea, no current vomiting, no current diarrhea. Denies melena or hematochezia GUno urinary retention, no urinary incontinence, no dysuria, no hematuria Musculoskeletalno joint pain, no muscle tenderness Skinno bruising, no rashes, no pruritus Neurono isolated weakness, no paresthesia, no weakness Psychno depression, no anxiety Physical Exam 2 Physical Exam: General-alert and oriented x3, no fever, no chills HEENT-head atraumatic and normocephalic, pupils equal and reactive to light, extraocular muscles intact. Right eye without mattering, no scleral injection, appears unremarkable Neck-no lymphadenopathy or thyromegaly, trachea midline Chest-clear to auscultation. No rales, wheezing or rhonchi Cardiac-regular rate and rhythm, normal S1 and S2 Abdomen-normal bowel sounds, no hepatosplenomegaly Extremities-no cyanosis, clubbing, or edema Neuro-cranial nerves II through XII intact, motor and sensory function within normal limits, strength symmetrical, no focal deficits Psych-normal affect, normal mood Results & Data Results & Data Vital Signs (Past 12 Hours) Vital Signs Temp Pulse Resp BP Pulse Ox O2 Del Method 12/20/24 11:50 37.0 C 66 16 147/81 H 98 Room Air 12/20/24 07:50 36.7 C 80 16 170/81 H 98 Room Air 12/20/24 02:04 36.6 C 73 16 173/97 H 97 Room Air Laboratory Results 12/20/24 05:54 12/20/24 05:54 PG Care Time/CCT Total # of Minutes Spent Total Time Spent with Patient: Total time spent is greater than 50% in coordination of care (as documented) at patient's floor/unit and/or counseling patient: Coding Level of Care Code 73802 SUB INP/OBS CARE 3/50MIN Diagnoses Nausea & vomiting R11.2 Primary biliary cirrhosis K74.3 Corneal abrasion, right S05.01XA Acute worsening of stage 3 chronic kidney disease N18.30 Type 2 diabetes mellitus E11.9 Liver transplant recipient Z94.4
[2024-12-20] MEDS: ONDANSETRON INJ 2 MG/ML 2 ML VIAL IV PRN (12:49)
[2024-12-20] MEDS ORDERED: TETRACAINE HCL 0.5% OPR SCH ×2 (13:00)
[2024-12-21] MEDS ORDERED: MAGNESIUM OXIDE 400 MG TAB PO SCH (07:30)
[2024-12-21 07:45] LABS: Basophils # (auto) 0.01 K/uL (0.00-0.20); Basophils % (auto) 0.4 %; Hematocrit (blood only) 29.5 % (37.0-47.0); Hemoglobin 10.5 g/dl (12.0-16.0); Immature Granulocytes # (auto) 0.04 K/uL (0.01-0.20); Immature Granulocytes % (auto) 1.5 %; Lymphocytes # (auto) 0.72 K/uL (1.20-3.40); Lymphocytes % (auto) 27.2 %; Mean Corpuscular Hgb Conc 35.6 g/dL (32.0-36.0); Mean Platelet Volume 10.2 fL (9.4-12.4); Monocytes # (auto) 0.48 K/uL (0.11-0.59); Monocytes % (auto) 18.1 %; Neutrophils % (auto) 52.8 %; Platelet Count 129 K/uL (130-400); RDW Coefficient of Variation 12.4 % (11.5-14.5); RDW Standard Deviation 38.8 fL (36.4-46.3); Red Blood Count 3.39 M/uL (4.20-5.40); White Blood Count 2.65 K/ul (4.8-10.8)
[2024-12-21 08:25] LABS: BUN Creatinine Ratio 23.1 (10-20); Potassium 4.5 mmol/L (3.5-5.1)
[2024-12-21] MEDS: MAGNESIUM OXIDE 400 MG TAB PO SCH (08:41)
[2024-12-21 09:12] LABS: Estimated Average Glucose 151 mg/dl; Hemoglobin A1C 6.9 % (4.5-5.6)
--- NOTE | 2024-12-21 12:48 | Hospitalist Progress Note ---
Date of Service December 21, 2024 Assessment & Plan (1) Nausea & vomiting: Plan: Suspected viral gastroenteritis on admission. Now resolved. Supportive care. (2) Primary biliary cirrhosis: Plan: Apparent primary reason for the liver transplant. (3) Corneal abrasion, right: Plan: Suspected. Eyedrops with tetracaine appeared to have helped quite a bit. Eye pain has nearly resolved. Supportive care (4) Acute worsening of stage 3 chronic kidney disease: Plan: Treated with IV fluids. Improved. Monitor urine output. Serial labs (5) Type 2 diabetes mellitus: Plan: ADA diet. Sliding scale coverage. Basal insulin therapy (6) Liver transplant recipient: Plan: Known. Currently immunosuppressed from multiple medications. Plan Anticipate discharge to home tomorrow, December 22 Admission and Anticipated Discharge Date Admission Date: December 19, 2024 Subjective She looks and feels better. Right eye pain has nearly resolved now. No evidence of acute conjunctivitis or scleral injection. Working diagnosis is probable right corneal abrasion. Potassium is down to 4.5. Creatinine continues to improve down to 1.4. Glucose stable at 107. She is on IV fluids for now. Hopefully she can go home tomorrow, December 22 Review of Systems 2 Review of Systems: Constitutionalno fever or chills HEENTright eye pain has almost completely resolved. No evidence of conjunctivitis. No mattering. No scleral injection. No blurred vision, no double vision, no epistaxis, no sore throat Respiratoryno cough, no wheezing, no shortness of breath Cardiacno palpitations, no chest pain, no syncope Yvonne current nausea, no current vomiting, no current diarrhea. Denies melena or hematochezia GUno urinary retention, no urinary incontinence, no dysuria, no hematuria Musculoskeletalno joint pain, no muscle tenderness Skinno bruising, no rashes, no pruritus Neurono isolated weakness, no paresthesia, no weakness Psychno depression, no anxiety Physical Exam 2 Physical Exam: General-alert and oriented x3, no fever, no chills HEENT-head atraumatic and normocephalic, pupils equal and reactive to light, extraocular muscles intact. Right eye without mattering, no scleral injection, appears unremarkable Neck-no lymphadenopathy or thyromegaly, trachea midline Chest-clear to auscultation. No rales, wheezing or rhonchi Cardiac-regular rate and rhythm, normal S1 and S2 Abdomen-normal bowel sounds, no hepatosplenomegaly Extremities-no cyanosis, clubbing, or edema Neuro-cranial nerves II through XII intact, motor and sensory function within normal limits, strength symmetrical, no focal deficits Psych-normal affect, normal mood Results & Data Results & Data Vital Signs (Past 12 Hours) Vital Signs Temp Pulse Pulse Resp BP Pulse Ox O2 Del Method 12/21/24 11:02 36.8 C 64 19 146/74 H 99 Room Air 12/21/24 09:52 76 12/21/24 07:40 36.7 C 63 17 175/76 H 97 Room Air 12/21/24 03:35 36.9 C 70 16 139/70 96 Room Air Laboratory Results 12/21/24 07:06 12/21/24 07:06 PG Care Time/CCT Total # of Minutes Spent Total Time Spent with Patient: Total time spent is greater than 50% in coordination of care (as documented) at patient's floor/unit and/or counseling patient: Coding Level of Care Code 07249 SUB INP/OBS CARE 2/35MIN Diagnoses Nausea & vomiting R11.2 Primary biliary cirrhosis K74.3 Corneal abrasion, right S05.01XA Acute worsening of stage 3 chronic kidney disease N18.30 Type 2 diabetes mellitus E11.9 Liver transplant recipient Z94.4
[2024-12-22 03:40] VITALS: TEMP 98.1
[2024-12-22 10:37] LABS: Basophils # (auto) 0.01 K/uL (0.00-0.20); Basophils % (auto) 0.3 %; Hematocrit (blood only) 27.6 % (37.0-47.0); Hemoglobin 9.7 g/dl (12.0-16.0); Immature Granulocytes # (auto) 0.03 K/uL (0.01-0.20); Lymphocytes # (auto) 0.67 K/uL (1.20-3.40); Lymphocytes % (auto) 23.3 %; Mean Corpuscular Hgb Conc 35.1 g/dL (32.0-36.0); Mean Corpuscular Volume 88.2 fL (80.0-100.0); Mean Platelet Volume 10.8 fL (9.4-12.4); Monocytes # (auto) 0.42 K/uL (0.11-0.59); Monocytes % (auto) 14.6 %; Neutrophils # (auto) 1.74 K/uL (1.40-6.50); Neutrophils % (auto) 60.8 %; Platelet Count 120 K/uL (130-400); RDW Coefficient of Variation 12.5 % (11.5-14.5); RDW Standard Deviation 39.8 fL (36.4-46.3); Red Blood Count 3.13 M/uL (4.20-5.40); White Blood Count 2.87 K/ul (4.8-10.8)
[2024-12-22 10:55] LABS: BUN Creatinine Ratio 21.7 (10-20); Calcium 7.9 mg/dl (8.6-10.3); Creatinine Clr Calc Pharmacy 38.2 ml/min; Potassium 4.7 mmol/L (3.5-5.1)
[2024-12-22 11:08] VITALS: BP 134/77; PULSE 57; RESP 20; O2SAT 98
--- NOTE | 2024-12-22 12:38 | Discharge Summary ---
Discharge Summary Date of Service December 22, 2024 Principal Dx & Hospital Course #1 = Principal Diagnosis (1) Nausea & vomiting: Suspected viral gastroenteritis on admission. Now resolved. Supportive care. (2) Primary biliary cirrhosis: Apparent primary reason for the liver transplant. (3) Corneal abrasion, right: Suspected. Eyedrops with tetracaine appeared to have helped quite a bit. Eye pain has nearly resolved. Supportive care (4) Acute worsening of stage 3 chronic kidney disease: Treated with IV fluids. Improved. Monitor urine output. Serial labs (5) Type 2 diabetes mellitus: ADA diet. Sliding scale coverage. Basal insulin therapy (6) Liver transplant recipient: Known. Currently immunosuppressed from multiple medications. 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 Nausea and vomiting x4 days. Severe back pain across her lower back where she had kidney pain in the past. Began 4 days ago. No appetite. Zofran helped a little but not much. BSGs elevated 250s-300s last few days, normally <200s. A1C improved 9.7 to 7.6% last checkup. BSG normally 130-150, but last few days has been high and difficulty to control. No shortness of breath. No chest pain. No cough. +Rhinorrhea +diarrhea loose/liquid x4 days. On amoxicillin BID chronically for meningitis ppx. Was previously on Bactrim treatment but this was discontinued by [place] team at [facility]. Last saw end of November. Adjusted her tacrolimus to 1.5 am, 1pm. peeing normally last few days. no blood in the urine last few days. Renal transplant Nov 2023 Liver transplant 2018 No issues with either of her transplant. "I watch what I eat and try and follow the rules really close." Had microhematuria as outpatient. Pending cysto and CT with [facility]. Has not been taking Lokelma due to vomiting Medical History: Reviewed Medications: Reviewed Surgical History: Reviewed Family history: Reviewed Allergies: Reviewed Social History: No tobacco/ETOH Code Status: Full Discharge Exam GENERAL APPEARANCE NAD, activity normal for age, well developed/ well nourished, no cyanosis, pallor, or diaphoresis. EYES lids/conjunctiva normal. EARS/NOSE/THROAT Mucous membranes moist, nares normal, lips/teeth normal uvula midline without oral pharyngeal erythema, exudate or swelling TMs normal bilaterally. No lymphangitis/lymphedema. HEAD/NECK normocephalic atraumatic, no facial trauma, neck is supple. RESPIRATORY respiratory effort normal, speaks in full sentences, no tripod po sition, no accessory muscle use. Lungs clear to auscultation without rhonchi, wheezes, rales CARDIAC Regular rate and rhythm, no edema. ABDOMINAL Soft, ND/NT. No evidence of fluid wave. No pulsatile masses on exam, rebound tenderness, Ott sign or pain over Mcburney's point. MUSCLES/EXTREMITIES No abnormal range of motion, no swelling. SKIN Warm, pink and dry. No rashes, dermatoses, petechiae or lesions. NEUROLOGICAL Speech is clear and appropriate. Normal level of consciousness. Gait and coordination are normal. 5/5 strength in all extremities. PSYCH Normal mood and affect. Judgement/competence is appropriate Discharge Plan Discharge Items Patient Disposition: Home - Self-Care Reason For Visit: N/V/D, [place] Discharge Diagnosis: Gastroenteritis Activity: Resume your previous activity Non-emergency contact: Primary Care Provider Call non-emergency contact if: you have any medication questions Follow-up/Referrals: She Davis DO [Primary Care Provider] - Diet: Regular Addtl Attending Provider Instructions: Follow up with PMD in 1 week Pending Studies at Discharge: No Stand-Alone Forms: My [facility] nap- Naturally Attached Parents, Smoking Cessation Medications and DC Order Prescriptions: New amoxicillin-pot clavulanate 875-125 mg tablet 1 tab PO Q12H Qty: 14 0RF ondansetron 4 mg tablet,disintegrating 4 mg PO Q8H 5 Days Qty: 15 0RF Continued insulin lispro [Humalog KwikPen Insulin] 100 unit/mL insulin pen See Rx Instructions subcut USEASDIRECTD Qty: 60 0RF Rx Instructions: break 8 units, lunch 5 units, supper 8 units pantoprazole 40 mg tablet,delayed release (DR/EC) 40 mg PO QAM Qty: 90 1RF (DME) Dexcom G7 Sensor Device See Rx Instructions .Route Rx Instructions: As directed (DME) miscellaneous medical supply Liquid See Rx Instructions .Route Qty: 1 0RF Rx Instructions: 1L normal saline, 250 cc/hr (DME) pen needle, diabetic [BD Ultra-Fine Leilani Pen Needle] 32 gauge x 5/32" needle See Rx Instructions .ROUTE .MEDSUPPLY Qty: 400 3RF Rx Instructions: Use 4 times daily with insulin injections insulin glargine [Lantus Solostar U-100 Insulin] 100 unit/mL (3 mL) insulin pen 8 unit subcut QAM Lokelma 10 gram powder in packet 10 g PO QAM metoprolol succinate 25 mg tablet extended release 24 hr 25 mg PO QAM tacrolimus 1 mg capsule 1 mg PO BID tacrolimus 0.5 mg capsule 0.5 mg PO QAM mycophenolate sodium 180 mg tablet,delayed release (DR/EC) 360 mg PO BID magnesium oxide 400 mg magnesium capsule See Rx Instructions .ROUTE .COMPLEX Rx Instructions: take 1 capsule by mouth on SAT/WED// and take 2 capsules on WED/WED/FRI Discontinued amoxicillin 250 mg capsule 250 mg PO BID Discharge Orders: Discharge Order (Routine); Ordered 12/22/24 Ordered By: Ben Foley Admission Data Admit Date/Time: 12/19/24 18:36 Attending Provider: Ben Foley Admit Provider: Marcus Pedro Primary Care Provider: She Davis Other Providers: Marcus Pedro Hospital Stay Data Consultations 12/19/24 17:05 ED Decision to Admit Stat Diagnostic Imagining Performed 12/19/24 17:34 CT abd pelvis wo con Stat Pending Results Patient Have Any Pending Studies at Discharge: No Discharge Instructions Given to Patient (Per Discharging Provider) Follow up with PMD in 1 week Total Time Total Time Spent Total Time Spent (In Minutes): 50 Coding Level of Care Code 96516 INP/OBS DISCH >30 MIN Diagnoses Nausea & vomiting R11.2 Primary biliary cirrhosis K74.3 Corneal abrasion, right S05.01XA Acute worsening of stage 3 chronic kidney disease N18.30 Type 2 diabetes mellitus E11.9 Liver transplant recipient Z94.4
[2024-12-22] MEDS ORDERED: FAMOTIDINE 20 MG TAB PO SCH (21:00)
== END 2024-12-22 14:46 | disposition home or self-care (01) | DRG 392 ==
LOC: ED 15:32 → SUATTDRO 18:36 → EDINP 18:36 → 4W 22:26

== ENCOUNTER 2025-02-20 14:56 | Inpatient (IN) ==
[2025-02-20 15:43] LABS: Hematocrit (blood only) 35.3 % (37.0-47.0); Hemoglobin 11.8 g/dl (12.0-16.0); Mean Corpuscular Hemoglobin 30.6 pg (25.0-34.0); Mean Corpuscular Hgb Conc 33.4 g/dL (32.0-36.0); Mean Corpuscular Volume 91.5 fL (80.0-100.0); Mean Platelet Volume 11.9 fL (9.4-12.4); Platelet Count 111 K/uL (130-400); RDW Coefficient of Variation 13.8 % (11.5-14.5); RDW Standard Deviation 46.5 fL (36.4-46.3); Red Blood Count 3.86 M/uL (4.20-5.40); White Blood Count 6.98 K/ul (4.8-10.8)
[2025-02-20 16:23] LABS: Albumin Level 3.9 gm/dl (3.4-5.0); Anion Gap 7 (3-11); Bilirubin,Total 1.3 mg/dl (0.2-1.0); Calcium 8.9 mg/dl (8.6-10.3); Carbon Dioxide 20 mmol/L (21-32); Chloride 106 mmol/L (98-107); Potassium 5.1 mmol/L (3.5-5.1); Sodium 133 mmol/L (136-145)
[2025-02-20] MEDS: diphenhydrAMINE 50 MG/ML VIAL IV STA (16:26)
[2025-02-20] MEDS: methylPREDNISolone 125 MG/2 ML VIAL IV STA (16:28)
--- NOTE | 2025-02-20 16:28 | Emergency Department Note ---
Impression & Plan Severe hyperglycemia due to diabetes mellitus, Facial flushing, Pruritus, Chronic kidney disease (CKD), stage III (moderate), Renal transplant recipient ED Provider Note NAME: JULIOCESAR LU AGE: 65 SEX: F : 1960 ARRIVES VIA: Walk-In INFORMANT: Patient ED PROVIDER(S): Silvestre Gonzalez MD CHIEF COMPLAINT: Facial redness and itching PLAN: Disposition: Admit MEDICAL DECISION MAKING: The patient is a pleasant 65-year-old woman with a past medical history of liver transplant 6 years ago and renal transplant 1 year ago performed in [place] with [facility] who presents to the emergency department via walk-in accompanied by her for evaluation of face itching and redness that began today in the setting of recently being treated with prednisone for a left hand trigger finger/arthritis. Patient ports her hand symptoms have improved significantly but then developed itching today. She denies any new medications other than prednisone. She denies chest pain, abdominal pain fevers, chills, cough, congestion, GI or symptoms. She denies any sun exposure. She has been taking her medications including her immunosuppressive's as prescribed. Patient reports that she ate Ramen noodles around noon prior to coming to the hospital but gave herself a double dose of her short acting insulin of 10 units as opposed to 5 units. On evaluation the patient is no acute distress, afebrile with blood pressure in the 180s/80s and vital signs otherwise stable. She appears clinically dry. She has mild blanchable erythema warmth of her face and upper chest. Mild injection of the posterior pharynx. No oropharyngeal edema or exudates. WBC within normal limits. H/H similar to prior. Platelets 1 11K, similar to prior. Creatinine 1.28 similar to prior range values. Chemistry without significant metabolic acidosis with bicarbonate of 20 and anion gap within normal limits. Glucose is however elevated at 712 in setting of her recent course of prednisone. Following 1 L of normal saline patient's glucose was 560. LFTs without significant abnormality. UA without evidence of infection. Respiratory BioFire was negative. Group A strep was negative. Findings were reviewed with the patient at the bedside. She does agree with plan for admission for further management of her hyperglycemia which is suspected to be the cause of her acute onset facial flushing and urticaria. Case was discussed with Dr. Lindsey [facility] hospitalist, who will evaluate the patient for admission. Agrees with initiation of insulin drip at this time. Further management per admitting team. Triage Nursing notes reviewed and agree them. Prior/external medical records reviewed Vital Signs: reviewed Differential diagnosis: Contact dermatitis, viral exanthem, urticaria, allergic reaction, Mauro- Bruce syndrome, toxic epidermal necrolysis, erythema multiforme, cellulitis, scabies, HSV, varicella, zoster, eczema, staph scalded skin syndrome, fungal infection, as well as other pathologies. ER treatment provided: See below. Diagnostics interpreted by me: Cardiac Monitoring: An order for continuous cardiac monitoring was placed and demonstrated normal sinus rhythm, 75 bpm, no ectopy. Laboratory studies: See below Imaging studies: See below Consultation(s): Dr. Lindsey [facility] hospitalist HPI: Per MDM. ROS: See above HPI for pertinent positives & negatives. A total of 10 systems reviewed and were otherwise negative. VITALS:See Below PHYSICAL EXAMINATION: GENERAL: Awake, alert, in no distress, BMI 34.6. HENT: Normocephalic, atraumatic. Mild blanchable erythema warmth of her face and upper chest. Mild injection of the posterior pharynx. No oropharyngeal edema or exudates. EYES: Normal conjunctiva. Sclera non-icteric. NECK: Supple. No nuchal rigidity. FROM. No JVD. RESPIRATORY: Clear to auscultation. CARDIAC: Regular rate, normal rhythm. Extremities warm and well perfused. Pulses equal. ABDOMEN: Soft, non-distended. No tenderness to palpation. No rebound or guarding. No masses. MUSCULOSKELETAL: Chest examination reveals no tenderness. The back is symmetrical on inspection without obvious abnormality. There is no CVA tenderness to palpation. No joint edema. LOWER EXTREMITIES: Calves are equal size bilaterally and non-tender. No edema. No discoloration. NEURO: Normal sensorium. No sensory or motor deficits noted. SKIN: No jaundice noted. Silvestre Gonzalez MD Past Med/Surg History Problem List (Updated 02/21/25 @ 04:24 by Silvestre Gonzalez MD) Pruritus (Acute) Facial flushing (Acute) Chronic kidney disease (CKD), stage III (moderate) (Acute) Volume depletion Severe hyperglycemia due to diabetes mellitus (Acute) Renal transplant recipient (Acute) Acute hyperkalemia (Acute) Nausea vomiting and diarrhea (Acute) MADELEINE (acute kidney injury) (Acute) Nausea & vomiting Hematuria, gross -donor kidney transplant recipient Dyspnea Thrombotic microangiopathy History of colon polyps Abnormal CT scan of lung Morbid obesity with BMI of 40.0-44.9, adult Neutropenia Pancytopenia Peripheral edema Diarrhea Proteinuria Lumbar pain with radiation down both legs Urinary incontinence, urge Diabetes mellitus with neurological manifestations, uncontrolled (Chronic) Trigger finger of right hand Trigger finger of left hand Environmental allergies Hx of compression fracture of spine L1 and L4 Low back pain Anemia aplastic aregenerative (Acute) Dyslipidemia (Chronic) Enthesopathy of foot (Chronic) Gastroparesis (Acute) 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) Microscopic hematuria (Acute) Diabetic neuropathy (Chronic) Vitamin D deficiency (Chronic) Osteoarthritis Cholestatic pruritus Anemia of chronic disease (Chronic) Plaque psoriasis Hypertension Osteopenia (Acute) Peripheral neuropathy (Chronic) Bilateral foot-drop (Chronic) Degenerative disc disease, lumbar (Chronic) Medical History Type 2 diabetes mellitus Acute worsening of stage 3 chronic kidney disease Corneal abrasion, right Diabetes 1.5, 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 x 5 days, History of COVID-19 (~10/2023) admitted at [facility] x 1 week, resolved DM type 2 (diabetes mellitus, type 2) IDDM COPD (chronic obstructive pulmonary disease) Follows Pulmonology in [place] Osteoarthritis GERD (gastroesophageal reflux disease) Surgical History Liver transplant recipient Liver transplant recipient (~10/13/18) [facility] 10/13/18 S/P kidney transplant Hx of esophagogastroduodenoscopy Hx of appendectomy Kidney transplant recipient (~11/2023) right side, [facility], follows with Kees[facility] Lopez S/P arteriovenous (AV) graft placement LUE - not currently in use History of lumbar laminectomy for spinal cord decompression (04/22/21) L3-L5 laminectomy History of total abdominal hysterectomy and bilateral salpingo-oophorectomy History of section X 2 History of colonoscopy History of tooth extraction Nasal polyp X 3 REMOVED History of tonsillectomy Family History Unknown Adopted Social History Smoking Status: Never smoker Second Hand Exposure: No; Do You Dip or Chew Tobacco: No; Hx Alcohol Use: No Hx Substance Use: No Preferred Language: Kyrgyz Communication Ability: Effective Visual Impairment: No Limitations Hearing Ability: Normal Sec Accountant Required: No Beliefs That Will Affect Care: None marital status: Current Living Situation: Family Current Living Situation Comment: Lives at home with , son, and daughter current occupational status: employed How many Children do You have: 3 Other Information That Helps Us Care for You: No Feels Safe at Home: Yes Safety Concerns: Feels Safe At This Time Childhood Exposure to Second-Hand Smoke: No Diet: low carbohydrate caffeine: Yes during the past year weight has: remained stable Dental Care, Regularly: No Physical Activity Frequency: Daily Seatbelt Use: always Sunscreen Use: No Assistive Devices: Cane, Glasses, Walker and Other Assistive Devices Comment: leg braces Allergies Allergies Allergy/AdvReac Type Severity Reaction Status Date / Time Iodinated Contrast Media Allergy Intermediate Sneezing Verified 02/16/25 09:13 and breaks out into a rash doxycycline AdvReac Intermediate Vomiting Verified 02/16/25 09:13 metformin AdvReac Intermediate Gastrointestinal Verified 02/16/25 09:13 Upset Home Meds Home Medications Medication Instructions Recorded Confirmed blood-glucose sensor (Dexcom G7 08/17/23 02/20/25 Sensor device) sodium zirconium cyclosilicate 10 10 g PO QAM 05/03/24 02/20/25 gram oral powder packet (Lokelma) metoprolol succinate 25 mg 25 mg PO QAM 06/07/24 02/20/25 tablet,extended release 24 hr insulin glargine 100 unit/mL (3 8 unit subcut QAM 07/11/24 02/20/25 mL) subcutaneous pen (Lantus Solostar U-100 Insulin) magnesium oxide See Rx Instructions .Route .COMPLEX 12/19/24 02/20/25 mycophenolate sodium 180 mg 360 mg PO AMHS 12/19/24 02/20/25 tablet,delayed release tacrolimus 1 mg capsule, 1 mg PO AMHS 12/19/24 02/20/25 immediate-release Previous Rx's Medication Instructions Recorded miscellaneous medical supply #1 L 01/05/24 pen needle, diabetic 32 gauge x #400 ea 06/15/24" (BD Ultra-Fine Leilani Pen Needle) insulin lispro 100 unit/mL See Rx Instructions subcut 08/30/24 subcutaneous pen (Humalog KwikPen USEASDIRECTD #60 mL (U-100) Insulin) pantoprazole 40 mg tablet,delayed 40 mg PO QAM #90 tabs 09/01/24 release prednisone 10 mg tablet See Rx Instructions PO DAILY #20 02/16/25 tabs Results & Data (ED) Vital Signs Vital Signs - 24 hr 02/20/25 14:59 02/20/25 15:55 02/20/25 15:55 Temperature 36.7 C Temperature Source Temporal Artery Scan Pulse Rate 75 73 Pulse Rate [Apical] 71 Pulse Rhythm Pulse Rhythm [Apical] Regular Pulse Strength [Apical] Normal Respiratory Rate 18 14 Respiratory Effort / Characteristics Non-Labored Spontaneous Non-Labored Respiratory Depth Normal Normal Respiratory Pattern Regular Regular Blood Pressure 208/78 H Blood Pressure [Right Arm] 189/88 H Blood Pressure Mean 121 Blood Pressure Mean [Right Arm] 121 Blood Pressure Position [Right Arm] Lying Pulse Oximetry 98 97 Oxygen Delivery Method Room Air Room Air Sepsis Recent Fever Within 48 Hours No Sepsis New/Unexplained Change in Mental Status N/A Sepsis Action Taken by Nursing No Action Required 02/20/25 17:00 02/20/25 17:04 02/20/25 19:00 Temperature Temperature Source Pulse Rate 72 Pulse Rate [Apical] 71 76 Pulse Rhythm Regular Pulse Rhythm [Apical] Regular Pulse Strength [Apical] Normal Respiratory Rate 20 20 18 Respiratory Effort / Characteristics Non-Labored Non-Labored Spontaneous Respiratory Depth Normal Normal Respiratory Pattern Regular Regular Blood Pressure Blood Pressure [Right Arm] 180/97 H 186/81 H Blood Pressure Mean Blood Pressure Mean [Right Arm] 124 116 Blood Pressure Position [Right Arm] Lying Pulse Oximetry 98 98 96 Oxygen Delivery Method Room Air Room Air Room Air Sepsis Recent Fever Within 48 Hours Sepsis New/Unexplained Change in Mental Status Sepsis Action Taken by Nursing Laboratory Data 02/20/25 15:02/20/25 15: Lab Results 02/20/25 02/20/25 02/20/25 Range/Units 15: 15: 15: WBC 6.98 (4.8-10.8) K/ul RBC 3.86 L (4.20-5.40) M/uL Hgb 11.8 L (12.0-16.0) g/dl Hct 35.3 L (37.0-47.0) % MCV 91.5 (80.0-100.0) fL MCH 30.6 (25.0-34.0) pg MCHC 33.4 (32.0-36.0) g/dL RDW Std Deviation 46.5 H (36.4-46.3) fL RDW Coeff of Paty 13.8 (11.5-14.5) % Plt Count 111 L (130-400) K/uL MPV 11.9 (9.4-12.4) fL Immature Gran % (Auto) 0.6 % Neut % (Auto) 91.8 % Lymph % (Auto) 5.4 % [place] % (Auto) 2.1 % Eos % (Auto) 0.0 % Baso % (Auto) 0.1 % Neut # (Auto) 6.40 (1.40-6.50) K/uL Lymph # (Auto) 0.38 L (1.20-3.40) K/uL [place] # (Auto) 0.15 (0.11-0.59) K/uL Eos # (Auto) 0.00 (0.00-0.50) K/uL Baso # (Auto) 0.01 (0.00-0.20) K/uL Immature Gran # (Auto) 0.04 (0.01-0.20) K/uL Dohle Bodies 1+ Polychromasia 1+ Ovalocytes 1+ ESR 8 (0-30) mm/hr PT 11.2 (9.0-12.0) Seconds INR 1.0 (0.9-1.1) Sodium 133 L (136-145) mmol/L Potassium 5.1 (3.5-5.1) mmol/L Chloride 106 (98-107) mmol/L Carbon Dioxide 20 L (21-32) mmol/L Anion Gap 7 (3-11) BUN 24 H (6-23) mg/dl Creatinine 1.28 H (0.6-1.2) mg/dl Est Cr Clr Drug Dosing 38.8 ml/min eGFR 47.07 BUN/Creatinine Ratio 18.8 (10-20) Glucose 712 H* (70-99(Fasting)) mg/dl POC Glucose (70-99) mg/dl Calcium 8.9 (8.6-10.3) mg/dl Total Bilirubin 1.3 H (0.2-1.0) mg/dl Direct Bilirubin 0.4 H Cancelled (0-0.2) mg/dl AST 12 L (13-39) U/L ALT 10 (7-52) U/L Alkaline Phosphatase 86 (34-104) U/L C-Reactive Protein < 0.50 Cancelled (0-0.5) mg/dl Total Protein 6.5 (6.0-8.3) gm/dl Albumin 3.9 (3.4-5.0) gm/dl Globulin 2.6 (2.5-4.0) gm/dl Albumin/Globulin Ratio 1.5 (0.9-2) Urine Color Urine Appearance (Clear) Urine pH (4.5-7.5) Ur Specific [place] (1.000-1.030) Urine Protein (Negative) Urine Glucose (UA) (Negative) Urine Ketones (Negative) Urine Blood (Negative) Urine Nitrite (Negative) Urine Bilirubin (Negative) Urine Urobilinogen (Negative) Ur Leukocyte Esterase (Negative) Urine WBC (Auto) (0-5) /hpf Urine RBC (Auto) (0-2) /hpf U Hyaline Cast (Auto) (0-2) /lpf U Epithel Cells (Auto) (0-2) /hpf Urine Bacteria (Auto) (None Seen) Adenovirus (PCR) (NotDetected) B. pertussis DNA (PCR) (NotDetected) B.parapertussis DNA PCR (NotDetected) C. pneumoniae DNA (PCR) (NotDetected) Coronavirus OC43 (PCR) (NotDetected) Coronavirus HKU1 (PCR) (NotDetected) Coronavirus 229E (PCR) (NotDetected) SARS-CoV-2 (PCR) (NotDetected) Coronavirus NL63 (PCR) (NotDetected) Human Metapneumovir PCR (NotDetected) Influenza Type A (PCR) (NotDetected) Influenza Type B (PCR) (NotDetected) M. pneumoniae (PCR) (NotDetected) Parainfluenza 1 (PCR) (NotDetected) Parainfluenza 2 (PCR) (NotDetected) Parainfluenza 3 (PCR) (NotDetected) Parainfluenza 4 (PCR) (NotDetected) RSV (PCR) (NotDetected) Entero/Rhino (PCR) (NotDetected) Group A Strep (PCR) (NotDetected) 02/20/25 02/20/25 02/20/25 Range/Units 15:56 16:42 17:07 WBC (4.8-10.8) K/ul RBC (4.20-5.40) M/uL Hgb (12.0-16.0) g/dl Hct (37.0-47.0) % MCV (80.0-100.0) fL MCH (25.0-34.0) pg MCHC (32.0-36.0) g/dL RDW Std Deviation (36.4-46.3) fL RDW Coeff of Paty (11.5-14.5) % Plt Count (130-400) K/uL MPV (9.4-12.4) fL Immature Gran % (Auto) % Neut % (Auto) % Lymph % (Auto) % [place] % (Auto) % Eos % (Auto) % Baso % (Auto) % Neut # (Auto) (1.40-6.50) K/uL Lymph # (Auto) (1.20-3.40) K/uL [place] # (Auto) (0.11-0.59) K/uL Eos # (Auto) (0.00-0.50) K/uL Baso # (Auto) (0.00-0.20) K/uL Immature Gran # (Auto) (0.01-0.20) K/uL Dohle Bodies Polychromasia Ovalocytes ESR (0-30) mm/hr PT (9.0-12.0) Seconds INR (0.9-1.1) Sodium (136-145) mmol/L Potassium (3.5-5.1) mmol/L Chloride (98-107) mmol/L Carbon Dioxide (21-32) mmol/L Anion Gap (3-11) BUN (6-23) mg/dl Creatinine (0.6-1.2) mg/dl Est Cr Clr Drug Dosing ml/min eGFR BUN/Creatinine Ratio (10-20) Glucose (70-99(Fasting)) mg/dl POC Glucose 569 H* (70-99) mg/dl Calcium (8.6-10.3) mg/dl Total Bilirubin (0.2-1.0) mg/dl Direct Bilirubin (0-0.2) mg/dl AST (13-39) U/L ALT (7-52) U/L Alkaline Phosphatase (34-104) U/L C-Reactive Protein (0-0.5) mg/dl Total Protein (6.0-8.3) gm/dl Albumin (3.4-5.0) gm/dl Globulin (2.5-4.0) gm/dl Albumin/Globulin Ratio (0.9-2) Urine Color Yellow Urine Appearance Clear (Clear) Urine pH 6.0 (4.5-7.5) Ur Specific [place] 1.022 (1.000-1.030) Urine Protein Negative (Negative) Urine Glucose (UA) 3+ H (Negative) Urine Ketones Negative (Negative) Urine Blood 1+ H (Negative) Urine Nitrite Negative (Negative) Urine Bilirubin Negative (Negative) Urine Urobilinogen Negative (Negative) Ur Leukocyte Esterase Negative (Negative) Urine WBC (Auto) 0-5 (0-5) /hpf Urine RBC (Auto) 11-20 H (0-2) /hpf U Hyaline Cast (Auto) 0-2 (0-2) /lpf U Epithel Cells (Auto) 0-2 (0-2) /hpf Urine Bacteria (Auto) None Seen (None Seen) Adenovirus (PCR) Not Detected (NotDetected) B. pertussis DNA (PCR) Not Detected (NotDetected) B.parapertussis DNA PCR Not Detected (NotDetected) C. pneumoniae DNA (PCR) Not Detected (NotDetected) Coronavirus OC43 (PCR) Not Detected (NotDetected) Coronavirus HKU1 (PCR) Not Detected (NotDetected) Coronavirus 229E (PCR) Not Detected (NotDetected) SARS-CoV-2 (PCR) Not Detected (NotDetected) Coronavirus NL63 (PCR) Not Detected (NotDetected) Human Metapneumovir PCR Not Detected (NotDetected) Influenza Type A (PCR) Not Detected (NotDetected) Influenza Type B (PCR) Not Detected (NotDetected) M. pneumoniae (PCR) Not Detected (NotDetected) Parainfluenza 1 (PCR) Not Detected (NotDetected) Parainfluenza 2 (PCR) Not Detected (NotDetected) Parainfluenza 3 (PCR) Not Detected (NotDetected) Parainfluenza 4 (PCR) Not Detected (NotDetected) RSV (PCR) Not Detected (NotDetected) Entero/Rhino (PCR) Not Detected (NotDetected) Group A Strep (PCR) NOT DETECTED (NotDetected) 02/20/25 02/20/25 Range/Units 17:43 19:36 WBC (4.8-10.8) K/ul RBC (4.20-5.40) M/uL Hgb (12.0-16.0) g/dl Hct (37.0-47.0) % MCV (80.0-100.0) fL MCH (25.0-34.0) pg MCHC (32.0-36.0) g/dL RDW Std Deviation (36.4-46.3) fL RDW Coeff of Paty (11.5-14.5) % Plt Count (130-400) K/uL MPV (9.4-12.4) fL Immature Gran % (Auto) % Neut % (Auto) % Lymph % (Auto) % [place] % (Auto) % Eos % (Auto) % Baso % (Auto) % Neut # (Auto) (1.40-6.50) K/uL Lymph # (Auto) (1.20-3.40) K/uL [place] # (Auto) (0.11-0.59) K/uL Eos # (Auto) (0.00-0.50) K/uL Baso # (Auto) (0.00-0.20) K/uL Immature Gran # (Auto) (0.01-0.20) K/uL Dohle Bodies Polychromasia Ovalocytes ESR (0-30) mm/hr PT (9.0-12.0) Seconds INR (0.9-1.1) Sodium (136-145) mmol/L Potassium (3.5-5.1) mmol/L Chloride (98-107) mmol/L Carbon Dioxide (21-32) mmol/L Anion Gap (3-11) BUN (6-23) mg/dl Creatinine (0.6-1.2) mg/dl Est Cr Clr Drug Dosing ml/min eGFR BUN/Creatinine Ratio (10-20) Glucose (70-99(Fasting)) mg/dl POC Glucose 569 H* 547 H* (70-99) mg/dl Calcium (8.6-10.3) mg/dl Total Bilirubin (0.2-1.0) mg/dl Direct Bilirubin (0-0.2) mg/dl AST (13-39) U/L ALT (7-52) U/L Alkaline Phosphatase (34-104) U/L C-Reactive Protein (0-0.5) mg/dl Total Protein (6.0-8.3) gm/dl Albumin (3.4-5.0) gm/dl Globulin (2.5-4.0) gm/dl Albumin/Globulin Ratio (0.9-2) Urine Color Urine Appearance (Clear) Urine pH (4.5-7.5) Ur Specific [place] (1.000-1.030) Urine Protein (Negative) Urine Glucose (UA) (Negative) Urine Ketones (Negative) Urine Blood (Negative) Urine Nitrite (Negative) Urine Bilirubin (Negative) Urine Urobilinogen (Negative) Ur Leukocyte Esterase (Negative) Urine WBC (Auto) (0-5) /hpf Urine RBC (Auto) (0-2) /hpf U Hyaline Cast (Auto) (0-2) /lpf U Epithel Cells (Auto) (0-2) /hpf Urine Bacteria (Auto) (None Seen) Adenovirus (PCR) (NotDetected) B. pertussis DNA (PCR) (NotDetected) B.parapertussis DNA PCR (NotDetected) C. pneumoniae DNA (PCR) (NotDetected) Coronavirus OC43 (PCR) (NotDetected) Coronavirus HKU1 (PCR) (NotDetected) Coronavirus 229E (PCR) (NotDetected) SARS-CoV-2 (PCR) (NotDetected) Coronavirus NL63 (PCR) (NotDetected) Human Metapneumovir PCR (NotDetected) Influenza Type A (PCR) (NotDetected) Influenza Type B (PCR) (NotDetected) M. pneumoniae (PCR) (NotDetected) Parainfluenza 1 (PCR) (NotDetected) Parainfluenza 2 (PCR) (NotDetected) Parainfluenza 3 (PCR) (NotDetected) Parainfluenza 4 (PCR) (NotDetected) RSV (PCR) (NotDetected) Entero/Rhino (PCR) (NotDetected) Group A Strep (PCR) (NotDetected) Administered Medications Dextrose (Dextrose 50% 50 Ml Syringe) 25 - 50 ml IV UD PRN; Protocol PRN Reason: Hypoglycemia Protocol Stop: 03/22/25 21:29 Last Admin: 02/21/25 04:09 Dose: 25 ml Documented By: AUDELIA Enoxaparin Sodium (Enoxaparin Inj 40 Mg/0.4 Ml Syr) 40 mg SQ Q24H HYACINTH Stop: 03/22/25 21:03 Last Admin: 02/20/25 22:09 Dose: Not Given Documented By: AUDELIA Insulin Human Regular 250 (units/ Sodium Chloride) 250 mls @ 3.012 mls/hr IV .Q24H HYACINTH; Protocol Stop: 03/22/25 18:44 Last Titration: 02/21/25 03:09 Dose: 0.03 units/kg/hr, 2.4 mls/hr Documented By: AUDELIA Co-signed By: SKS Titration: 02/21/25 02:05 Dose: 0.04 units/kg/hr, 3 mls/hr Documented By: AUDELIA Co-signed By: CJC Titration: 02/21/25 01:05 Dose: 0.05 units/kg/hr, 3.8 mls/hr Documented By: AUDELIA Co-signed By: FAYE Titration: 02/21/25 00:03 Dose: 0.06 units/kg/hr, 4.8 mls/hr Documented By: AUDELIA Co-signed By: CJC Titration: 02/20/25 23:02 Dose: 0.08 units/kg/hr, 6 mls/hr Documented By: AMC Co-signed By: SKS Titration: 02/20/25 22:00 Dose: 0.08 units/kg/hr, 6 mls/hr Documented By: AMC Co-signed By: JOHNC Titration: 02/20/25 20:53 Dose: 0.08 units/kg/hr, 6 mls/hr Documented By: AUDELIA Co-signed By: SKS Admin: 02/20/25 19:55 Dose: 0.1 units/kg/hr, 7.5 mls/hr Documented By: PARRIS Co-signed By: ABDI Mycophenolate Sodium (Mycophenolate Sodium 180 Mg Tab) 360 mg PO [facility] Stop: 03/22/25 21:03 Last Admin: 02/20/25 22:23 Dose: 360 mg Documented By: AUDELIA Tacrolimus (Tacrolimus 1 Mg Cap) 1 mg PO [facility] HYACINTH Stop: 03/22/25 21:03 Last Admin: 02/20/25 22:05 Dose: 1 mg Documented By: AUDELIA Discontinued Medications Diphenhydramine HCl (Diphenhydramine 50 Mg/Ml Vial) 25 mg IV NOW STA Stop: 02/20/25 16:16 Last Admin: 02/20/25 16:26 Dose: 25 mg Documented By: YANNI Sodium Chloride (Nss) 500 mls @ 999 mls/hr IV .Q31M ONE Stop: 02/20/25 16:45 Last Infusion: 02/20/25 17:11 Dose: Infused Documented By: Admin: 02/20/25 16:36 Dose: 999 mls/hr Documented By: YANNI Famotidine (Pepcid 20mg Iv Push) 20 mg in 5 mls @ 2.5 mls/min IV NOW STA Stop: 02/20/25 16:16 Last Admin: 02/20/25 16:29 Dose: 2.5 mls/min Documented By: YANNI Sodium Chloride (Nss) 500 mls @ 999 mls/hr IV .Q31M ONE Stop: 02/20/25 17:13 Last Infusion: 02/20/25 17:50 Dose: Infused Documented By: Admin: 02/20/25 17:15 Dose: 999 mls/hr Documented By: YANNI Sodium Chloride (Nss) 500 mls @ 125 mls/hr IV .Q4H HYACINTH Stop: 02/20/25 22:44 Last Infusion: 02/20/25 22:57 Dose: Infused Documented By: Admin: 02/20/25 19:55 Dose: 125 mls/hr Documented By: PARRIS Insulin Human Regular (Novolin-R Bolus From Bag) 7.5 units IV ONE ONE Stop: 02/20/25 19:01 Last Admin: 02/20/25 19:56 Dose: 7.5 units Documented By: PARRIS Co-signed By: ABDI Methylprednisolone (Methylprednisolone 125 Mg/2 Ml Vial) 125 mg IV NOW STA Stop: 02/20/25 16:16 Last Admin: 02/20/25 16:28 Dose: 125 mg Documented By: YANNI Mendozaaneous (Stat Iv Infusion Titration Per Protocol) 1 each N/A NOW STA Stop: 02/20/25 18:41 Last Admin: 02/20/25 20:21 Dose: Not Given Documented By: ALBINO Mendozaaneous ([facility] Goal Range 250-350 Mg/Dl) 1 each N/A ONE ONE Stop: 02/20/25 18:41 Last Admin: 02/20/25 21:06 Dose: 1 each Documented By: AUDELIA Ondansetron HCl (Ondansetron Inj 2 Mg/Ml 2 Ml Vial) 4 mg IV NOW STA Stop: 02/20/25 19:59 Last Admin: 02/20/25 20:21 Dose: 4 mg Documented By: ALBINO Discharge Plan Visit Data Chief Complaint: Allergic Reaction Stated Complaint: ALLERGIC REACTION ED Provider: Silvestre Gonzalez Discharge Problem: Severe hyperglycemia due to diabetes mellitus, Facial flushing, Pruritus, Chronic kidney disease (CKD), stage III (moderate), Renal transplant recipient Patient Disposition: Admitted As Inpatient Discharge Instructions Interventions: ED Discharge Assessment Last Done: 02/20/25 21:44 Discharge Problem: Chronic kidney disease (CKD), stage III (moderate) Qualifiers: Chronic kidney disease stage 3 subtype: unspecified whether 3a or 3b Qualified Code(s): N18.30 - Chronic kidney disease, stage 3 unspecified
[2025-02-20 16:29] LABS: Basophils # (auto) 0.01 K/uL (0.00-0.20); Basophils % (auto) 0.1 %; Dohle Bodies 1+; Immature Granulocytes # (auto) 0.04 K/uL (0.01-0.20); Immature Granulocytes % (auto) 0.6 %; Lymphocytes # (auto) 0.38 K/uL (1.20-3.40); Lymphocytes % (auto) 5.4 %; Monocytes # (auto) 0.15 K/uL (0.11-0.59); Monocytes % (auto) 2.1 %; Neutrophils % (auto) 91.8 %; Ovalocytes 1+; Polychromasia 1+
[2025-02-20] MEDS: FAMOTIDINE 20MG IV PUSH 20 MG/5 ML SYR IV STA (16:29)
[2025-02-20] MEDS: SODIUM CHLORIDE 0.9% 500 ML IV ONE ×2 (16:36→17:15)
[2025-02-20 16:40] LABS: Alanine Aminotransferase 10 U/L (7-52); Albumin Globulin Ratio 1.5 (0.9-2); Alkaline Phosphatase 86 U/L (34-104); Aspartate Aminotransferase 12 U/L (13-39); BUN Creatinine Ratio 18.8 (10-20); Blood Urea Nitrogen 24 mg/dl (6-23); Creatinine Clr Calc Pharmacy 38.8 ml/min; Globulin 2.6 gm/dl (2.5-4.0); Glucose 712 mg/dl (70-99(Fasting)); Total Protein 6.5 gm/dl (6.0-8.3)
[2025-02-20 17:30] LABS: Appearance Urine Clear (Clear); Bacteria Urine Automated None Seen (None Seen); Bilirubin Urine Negative (Negative); Blood Urine 1+ (Negative); Cast Urine Automated 0-2 /lpf (0-2); Color Urine Yellow; Epithelial Cell Urine Auto 0-2 /hpf (0-2); Glucose Urine UA 3+ (Negative); Ketones Urine Negative (Negative); Leukocyte Esterase Urine Negative (Negative); Nitrite Urine Negative (Negative); Protein Urine Negative (Negative); Specific Gravity Urine 1.022 (1.000-1.030); Urobilinogen Urine Negative (Negative); WBC Urine Automated 0-5 /hpf (0-5)
[2025-02-20 17:45] LABS: Adenovirus PCR Not Detected (NotDetected); Bordetella parapertussis PCR Not Detected (NotDetected); Bordetella pertussis PCR Not Detected (NotDetected); Chlamydia pneumoniae PCR Not Detected (NotDetected); Coronavirus 229E PCR Not Detected (NotDetected); Coronavirus CoV-2 (COVID19)PCR Not Detected (NotDetected); Coronavirus HKU1 PCR Not Detected (NotDetected); Coronavirus NL63 PCR Not Detected (NotDetected); Coronavirus OC43PCR Not Detected (NotDetected); Human Metapneumovirus PCR Not Detected (NotDetected); Influenza A PCR Not Detected (NotDetected); Influenza B PCR Not Detected (NotDetected); Mycoplasma pneumoniae PCR Not Detected (NotDetected); Parainfluenza Virus 1 PCR Not Detected (NotDetected); Parainfluenza Virus 2 PCR Not Detected (NotDetected); Parainfluenza Virus 3 PCR Not Detected (NotDetected); Parainfluenza Virus 4 PCR Not Detected (NotDetected); Respiratory Syncytial VirusPCR Not Detected (NotDetected); Rhinovirus/Enterovirus PCR Not Detected (NotDetected)
[2025-02-20] MEDS ORDERED: PHARMACY GLYCEMIC MGMT CONSULT PRN (18:40)
[2025-02-20] MEDS ORDERED: INSULIN REGULAR 250 UNITS in SODIUM CHLORIDE 0.9% 247.5 ML IV SCH (18:45)
--- NOTE | 2025-02-20 18:59 | History & Physical Report ---
Date of Service February 20, 2025 Assessment & Plan (1) Severe hyperglycemia due to diabetes mellitus: (2) Volume depletion: (3) Chronic kidney disease (CKD), stage III (moderate): (4) -donor kidney transplant recipient: (5) Liver transplant recipient: Plan Rhona is a 65-year-old woman with diabetes managed as type I, liver transplant in 2017 For PSC, kidney transplant in 2023 for diabetic kidney disease was admitted with severe hyperglycemia and volume depletion this was precipitated by oral steroids as an outpatient, her blood sugar was over 700 on the chemistry panel on recheck after fluids it was 570. 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 mild hyponatremia of 133 is surprisingly high given the degree of hyperglycemia. -- we will continue her daily Lokelma IV fluids as above, a.m. BMP Continue her transplant immunosuppressants including mycophenolate tacrolimus, it does not look like she is on chronic prednisone # Liver transplant recipient Stable with a mild elevation of bilirubin IV fluids as above, repeat LFTs in a.m. to see if bilirubin comes down with hydration. Continue transplant medications # Flushing and itching - face, anterior neck. generalized redness not discrete rash or hives I do not think this is a severe allergic reaction but it looks like a dermatitis, she did get a big dose of steroids from the ED, flushing and itching could be related to severe hyperglycemia but that would be rare/unusual. She does have history of psoriasis. -monitor symptoms, exam - give IV benadryl, continue cetirizine, avoid further systemic steroids # chronic thrombocytopeniastable, this is probably related to her immunosuppressants DVT prophylaxisenoxaparin I anticipate she may be in the hospital 2 days at least because of steroid effect on her diabetes History of Present Illness Chief Complaint: flushing, itching Primary Care Provider: She Davis DO 65-year-old woman with IDDM, remote liver transplant for [facility]ott in 2018 and renal transplant at [facility] a year ago on 11/13/2023 who came to the ED with symptoms of flushing and redness as well as itching. She was found to have a blood sugar of 712. Unfortunately she received a dose of Solu-Medrol IV prior to the blood glucose result. Recently she has been on oral steroids for a trigger finger. She does have type 1.5 diabetes that is managed like a type I with insulin alone and her doses are not very high. She took a double dose of her midday Humalog when she realized her sugar was going up. Her blood sugar came down to 570 after IV fluids. Rhona has been having pain and stiffness of her left thumb and middle finger related to arthritis and her trigger finger. She was given a prednisone burst she took 40 mg yesterday and 40 mg this morning thereafter it was to taper. she noticed her Dexcom sensor reading "high" since this morning but it does not give her a specific reading if it is severely elevated. She did take extra insulin at lunchtime but it was only 10 units of short acting insulin. She did have lightheadedness last night. Today she developed flushing and itching of her face and upper chest and came into the ED. She has not had any other recent medication changes. She cannot recall any specific exposures. She has not had any recent illnesses no cough shortness of breath fever URI symptoms sick contacts. She has nausea which started today and is still present without vomiting. She has not had any abdominal pain or diarrhea no dysuria no leg swelling. Allergies Allergy/AdvReac Type Severity Reaction Status Date / Time Iodinated Contrast Media Allergy Intermediate Sneezing Verified 02/16/25 09:13 and breaks out into a rash doxycycline AdvReac Intermediate Vomiting Verified 02/16/25 09:13 metformin AdvReac Intermediate Gastrointestinal Verified 02/16/25 09:13 Upset Home Medications Medication Instructions Recorded Confirmed Type blood-glucose sensor (Dexcom G7 08/17/23 02/20/25 History Sensor device) miscellaneous medical supply #1 L 01/05/24 02/20/25 Rx sodium zirconium cyclosilicate 10 10 g PO QAM 05/03/24 02/20/25 History gram oral powder packet (Lokelco) metoprolol succinate 25 mg 25 mg PO QAM 06/07/24 02/20/25 History tablet,extended release 24 hr pen needle, diabetic 32 gauge x #400 ea 06/15/24 02/20/25 Rx 5/32" (BD Ultra-Fine Leilani Pen Needle) insulin glargine 100 unit/mL (3 8 unit subcut QAM 07/11/24 02/20/25 History mL) subcutaneous pen (Lantus Solostar U-100 Insulin) insulin lispro 100 unit/mL See Rx Instructions subcut 08/30/24 02/20/25 Rx subcutaneous pen (Humalog KwikPen USEASDIRECTD #60 mL (U-100) Insulin) pantoprazole 40 mg tablet,delayed 40 mg PO QAM #90 tabs 09/01/24 02/20/25 Rx release magnesium oxide See Rx Instructions .Route .COMPLEX 12/19/24 02/20/25 History mycophenolate sodium 180 mg 360 mg PO AMHS 12/19/24 02/20/25 History tablet,delayed release tacrolimus 1 mg capsule, 1 mg PO AMHS 12/19/24 02/20/25 History immediate-release prednisone 10 mg tablet See Rx Instructions PO DAILY #20 02/16/25 02/20/25 Rx tabs Past Med/Surg History Problem List Chronic kidney disease (CKD), stage III (moderate) Volume depletion Severe hyperglycemia due to diabetes mellitus Renal transplant recipient (Acute) Acute hyperkalemia (Acute) Nausea vomiting and diarrhea (Acute) MADELEINE (acute kidney injury) (Acute) Nausea & vomiting Hematuria, gross -donor kidney transplant recipient Dyspnea Thrombotic microangiopathy History of colon polyps Abnormal CT scan of lung Morbid obesity with BMI of 40.0-44.9, adult Neutropenia Pancytopenia Peripheral edema Diarrhea Proteinuria Lumbar pain with radiation down both legs Urinary incontinence, urge Diabetes mellitus with neurological manifestations, uncontrolled (Chronic) Trigger finger of right hand Trigger finger of left hand Environmental allergies Hx of compression fracture of spine L1 and L4 Low back pain Anemia aplastic aregenerative (Acute) Dyslipidemia (Chronic) Enthesopathy of foot (Chronic) Gastroparesis (Acute) 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) Microscopic hematuria (Acute) Diabetic neuropathy (Chronic) Vitamin D deficiency (Chronic) Osteoarthritis Cholestatic pruritus Anemia of chronic disease (Chronic) Plaque psoriasis Hypertension Osteopenia (Acute) Peripheral neuropathy (Chronic) Bilateral foot-drop (Chronic) Degenerative disc disease, lumbar (Chronic) Medical History Type 2 diabetes mellitus Acute worsening of stage 3 chronic kidney disease Corneal abrasion, right Diabetes 1.5, 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 GERD (gastroesophageal reflux disease) Liver cirrhosis secondary to LOTT (nonalcoholic steatohepatitis) MADELEINE (acute kidney injury) Dehydration Hyperkalemia Hyperglycemia Fever Hypomagnesemia Leukopenia Acute hyperkalemia History of compression fracture of vertebral column (05/14/22) lumbar vertebra compression fracture History of vertebral fracture (~03/12/19) L1-L3 stress fractures Ambulatory dysfunction Limb alert care status LUE AV fistual Poor venous access frequent infusions Hx of respiratory syncytial virus infection (~12/2023) admitted at [facility] x 5 days, History of COVID-19 (~10/2023) admitted at [facility] x 1 week, resolved DM type 2 (diabetes mellitus, type 2) IDDM COPD (chronic obstructive pulmonary disease) Follows Pul[place]ology in [place] Osteoarthritis GERD (gastroesophageal reflux disease) Surgical History Liver transplant recipient Liver transplant recipient (~10/13/18) [facility] 10/13/18 S/P kidney transplant Hx of esophagogastroduodenoscopy Hx of appendectomy Kidney transplant recipient (~11/2023) right side, AG, follows with [facility] S/P arteriovenous (AV) graft placement LUE - not currently in use History of lumbar laminectomy for spinal cord decompression (04/22/21) L3-L5 laminectomy History of total abdominal hysterectomy and bilateral salpingo-oophorectomy History of section X 2 History of colonoscopy History of tooth extraction Nasal polyp X 3 REMOVED History of tonsillectomy Family History Unknown Adopted Social History Smoking Status: Never smoker Second Hand Exposure: No; Do You Dip or Chew Tobacco: No; Hx Alcohol Use: No Hx Substance Use: No Preferred Language: Malay Communication Ability: Effective Visual Impairment: No Limitations Hearing Ability: Normal Transportation Refrigeration Technician Required: No Beliefs That Will Affect Care: None marital status: Current Living Situation: Spouse Current Living Situation Comment: Lives at home with , son, and daughter current occupational status: employed How many Children do You have: 3 Feels Safe at Home: Yes Childhood Exposure to Second-Hand Smoke: No Diet: low carbohydrate caffeine: Yes during the past year weight has: remained stable Dental Care, Regularly: No Physical Activity Frequency: Daily Seatbelt Use: always Sunscreen Use: No Assistive Devices: None Review of Systems Review of Systems: All systems reviewed & are unremarkable except as noted in HPI & below Physical Exam Physical Exam: PHYSICAL EXAMINATION Last 24h vital signs reviewed, see documentation in flowsheet General: comfortable appearing, no distress HEENT: Normocephalic, atraumatic, pupils round and equal, sclerae anicteric, no conjunctival injection, moist mucus membranes Lungs: Normal respiratory effort. Clear to auscultation bilaterally. No RRW Heart: Regular rate and rhythm, no murmurs. No JVD. port in right upper chest is accessed Abdomen: Soft, nontender, nondistended. Bowel sounds present. Extremities: Warm, dry, well-perfused. No extremity edema. skin: She has significant flushing over her entire face this extends under her neck and behind her ears as well as onto her upper chest. There is no rash on the rest of her trunk her back has a patch of psoriasis, there is no rash on her arms or legs. Neuro: Alert and oriented x 4, speech intact, face symmetric moves 4 extremities well Results & Data Results & Data Vital Signs (Past 12 Hours) Vital Signs Temp Pulse Pulse Resp BP BP Pulse Ox 02/20/25 17:04 72 20 98 02/20/25 17:00 71 20 180/97 H 98 02/20/25 15:55 73 02/20/25 15:55 71 14 189/88 H 97 02/20/25 14:59 36.7 C 75 18 208/78 H 98 O2 Del Method 02/20/25 17:04 Room Air 02/20/25 17:00 Room Air 02/20/25 15:55 02/20/25 15:55 Room Air 02/20/25 14:59 Room Air Laboratory Results I reviewed a CBC BMP and LFTs, notable for stable anemia with hemoglobin 11.8, chronic thrombocytopenia platelets 111, evidence of volume depletion on chemistry panel with sodium low at 133 no anion gap but mild metabolic acidosis with bicarb of 20, BUN 24, creatinine 1.28 which normal is around 11.2 bilirubin mildly elevated at 1.3 AST and ALT are not elevated urinalysis is negative and respiratory bio fire panel is negative PG Care Time/CCT Total # of Minutes Spent Total Time Spent with Patient: Total time spent is greater than 50% in coordination of care (as documented) at patient's floor/unit and/or counseling patient: Coding Level of Care Code 20686 INT INP/OBS CARE 3/75MIN Diagnoses Severe hyperglycemia due to diabetes mellitus E11.65 Volume depletion E86.9 Chronic kidney disease (CKD), stage III (moderate) N18.30 -donor kidney transplant recipient Z94.0 Liver transplant recipient Z94.4
[2025-02-20] MEDS ORDERED: GLUCOSE 10 TAB/TUBE PO PRN ×2 (19:00→21:30)
[2025-02-20] MEDS ORDERED: GLUCAGON FOR INJ 1 MG VIAL SQ PRN ×2 (19:00→21:30)
[2025-02-20] MEDS ORDERED: DEXTROSE 50% 50 ML SYRINGE IV PRN (19:00)
[2025-02-20] MEDS ORDERED: CARBOHYDRATES FOR HYPOGLYCEMIA PO PRN ×2 (19:00→21:30)
[2025-02-20] MEDS ORDERED: GLUCOSE 40% GEL 15 GM TUBE PO PRN ×2 (19:00→21:30)
[2025-02-20] MEDS: SODIUM CHLORIDE 0.9% 500 ML IV SCH (19:55)
[2025-02-20] MEDS: INSULIN REGULAR 250 UNITS in SODIUM CHLORIDE 0.9% 247.5 ML IV SCH (19:55)
[2025-02-20] MEDS: NovoLIN-R BOLUS FROM BAG IV ONE (19:56)
[2025-02-20 20:18] LABS: Prothrombin Time 11.2 Seconds (9.0-12.0)
[2025-02-20] MEDS: ONDANSETRON INJ 2 MG/ML 2 ML VIAL IV STA (20:21)
[2025-02-20] MEDS: STAT IV Infusion **Titration per Protocol STA (20:21)
[2025-02-20] MEDS ORDERED: POLYETHYLENE (MIRALAX) 17 GM PACK PO PRN (21:04)
[2025-02-20] MEDS ORDERED: MAGNESIUM HYDROXIDE SUSP 30 ML UDC PO PRN (21:04)
[2025-02-20] MEDS ORDERED: ACETAMINOPHEN 325 MG TAB PO PRN (21:04)
[2025-02-20] MEDS ORDERED: MELATONIN 3 MG TAB PO PRN (21:04)
[2025-02-20] MEDS ORDERED: diphenhydrAMINE 50 MG/ML VIAL IV PRN (21:04)
[2025-02-20] MEDS ORDERED: ALUMINUM/MAGNESIUM SUSP 30 ML UDC PO PRN (21:04)
[2025-02-20] MEDS ORDERED: ONDANSETRON INJ 2 MG/ML 2 ML VIAL IV PRN (21:04)
[2025-02-20] MEDS: HHS GOAL RANGE 250-350 mg/dl ONE (21:06)
[2025-02-20] MEDS: ENOXAPARIN INJ 40 MG/0.4 ML SYR SQ SCH (22:05)
[2025-02-20] MEDS: TACROLIMUS 1 MG CAP PO SCH (22:05)
[2025-02-20] MEDS: MYCOPHENOLATE SODIUM 180 MG TAB PO SCH (22:23)
[2025-02-20 23:05] LABS: C Reactive Protein < 0.50 mg/dl (0-0.5)
[2025-02-21 00:03] LABS: Bilirubin Direct 0.4 mg/dl (0-0.2)
--- OUTSIDE RECORDS SUMMARY | 2025-02-21 02:27 | External Medical Summary | Summary of Care ---
Author Name Unknown Organization [facility] Address [address] [place] [address] Phone [phone] Care Team Providers Care Tool Specialist Name Role Phone She Davis DO Primary Care Provider [phone] Reason for Visit * Reason Comments eRx-Medication Refill Encounter Details Date Type Department Care Team (Late st Contact Info) Description 02/08/2025 Refill Derm[address] [place] [phone] Jany Lyles PA-C [address] [place] [address] [place] [phone] Inverse psoriasis Allergies Active Allergy Reactions Criticality Noted Date Comments Cephalosporins 05/03/2002 Ceftin--vomiting Clarithromycin 05/03/2002 Vomiting Ivp Dye 06/23/2001 Sneezing, gets red, feels on fire Penicillins 05/03/2002 Rash/vomiting documented as of this encounter (statuses as of 02/08/2025) Medications NOVOLIN 70/30 (70-30) 100 UNIT/ML SUBQ SUSP Inject under the skin. Active acetaminophen- codeine 300-30 mg per tab (TYLENOL #3) 150-15 MG TABS Take 0.5 Tablets by mouth every 4 hours as needed. Active atorvaSTATin (LIPITOR) 20 MG Tablet Take 20 mg by mouth daily. Active Metoclopramide HCl 5 MG Oral Tablet (Reglan) Take 1 Tablet by mouth in the morning and 1 Tablet at noon and 1 Tablet in the evening and 1 Tablet before bedtime. Active Valsartan 160 MG Oral Tablet (Diovan) Take 1 Tablet by mouth in the morning. Active Tacrolimus 1 MG Oral Capsule (Prograf) Take 1 Capsule by mouth in the morning and 1 Capsule before bedtime. Active Solifenacin Succinate 5 MG Oral Tablet (VESIcare) Take 1 Tablet by mouth in the morning. Active Bumetanide 1 MG Oral Tablet (Bumex) Take 1 Tablet by mouth in the morning. Active Econazole Nitrate 1 % External Cream (Spectazole)In dications:Tabby a corporis Apply 2x daily to rash on lower back until resolved (might take a month or more) 85 g 2 05/17/20 23 Active valGANciclovir HCl 450 MG Oral Tablet (Valcyte) Take 1 Tablet by mouth in the morning. Active Pantoprazole Sodium 40 MG Oral Tablet Delayed Release (Protonix) Take 1 Tablet by mouth in the morning. Active Ergocalciferol 1.25 MG (68872 UT) Oral Capsule (Vitamin D2(Drisdol)) Take 1 Capsule by mouth every 30 days. Active Metoprolol Tartrate 25 MG Oral Tablet (Lopressor) Take 1 Tablet by mouth in the morning and 1 Tablet before bedtime. Active Clobetasol Propionate 0.05 % External Ointment (Temovate)Lizabeth cations:Plaque psoriasis Apply 2x daily (or more if itchy instead of scratching) to psoriasis that is thicker and scaly on scalp, back, abdomen, arms/legs. Please no rubbing, picking, scratching at psoriasis. 120 g 1 01/31/20 24 Active Triamcinolone Acetonide 0.1 % External Ointment (Aristocort)In dications:Inve rse psoriasis APPLY 2X DAILY (OR MORE IF ITCHY INSTEAD OF SCRATCHING) TO PSORIASIS IN SKIN FOLDS AND THINNER PINK-RED SPOTS THAT ARE ALMOST CLEARED. PLEASE NO RUBBING, PICKING, SCRATCHING AT PSORIASIS. 454 g 02/09/20 25 Active Triamcinolone Acetonide 0.1 % External Ointment (Aristocort)In dications:Inve rse psoriasis Apply 2x daily (or more if itchy instead of scratching) to psoriasis in skin folds and thinner pink-red spots that are almost cleared. Please no rubbing, picking, scratching at psoriasis. 454 g 1 01/31/20 24 025 Discontinued documented as of this encounter (statuses as of 02/08/2025) Active Problems Problem Noted Date Diagnosed Date Primary biliary cirrhosis 10/15/2014 DYSLIPIDEMIA, GOAL LDL BELOW 100 10/08/2009 Overview (10/08/2009): Per Lipid Taxonomy. Type 2 diabetes mellitus wit h hemoglobin A1c goal of less than 7.0% 08/29/2009 Overview (02/25/2016): Per Diabetes Taxonomy. ICD-10 update of inactive term Nasal polyp 01/29/2007 Other allergic rhinitis 01/29/2007 Overview (08/24/2017): ICD-10 update of inactive term SYMPTOMS IN BREAST NEC 08/17/2005 Other psoriasis 01/19/2002 INT HEMRRHOID W COMP NEC documented as of this encounter (statuses as of 02/08/2025) Resolved Problems Problem Noted Date Diagnosed Date Resolved Date ADVANCE DIRECTIVE INFORMATION 12/14/2005 09/04/2024 Overview (12/14/2005): No, Advance Directive brochure offered , patient declined. Type 2 diabetes mellitus wit h hemoglobin A1c goal of less than 7.0% 09/04/2003 08/29/2009 Overview (02/25/2016): Per Diabetes Taxonomy. ICD-10 update of inactive term Mixed dyslipidemia 9 Overview (10/08/2009): Per Lipid Taxonomy. documented as of this encounter (statuses as of 02/08/2025) Immunizations Name Administration Dates Next Due PPD 04/18/2012,05/11/2011 Pneumococcal Polysaccharide PPV23 (Pneumovax) Seasonal Influenza Vac., MDV, IM, 0.5 mL (Fluzon e) 09/29/2007,09/09/2006 TDAP, Age 7 and older, IM (Adacel) 10/18/2008 documented as of this encounter Social History Tobacco Use Types Packs/Day Years Used Date Smoking Tobacco: Never Smokeless Tobacco: Never Alcohol Use Standard Drinks/Week Comments No 0 (1 standard drink = 0.6 oz pur e alcohol) rarely Comments No Sex and Gender Information Value Date Recorded Sex Assigned at Not on file Legal Sex Female 5:37 AM EST Gender Identity Not on file Sexual Orientation Not on file 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 One final refill was sent but patient can either schedule an appointment or can ask their pcp to continue to refill this medication for them. Jany RAYMOND PA-C * Telephone Encounter - Jany Lyles PA-C - 02/08/2025 7:37 AM EDT Signed Prescriptions: Disp Refills Triamcinolone Acetonide 0.1 % External Oin*454 g 0 Sig: APPLY 2XDAILY (OR MORE IF ITCHY INSTEAD OF SCRATCHING) TO PSORIASIS IN SKIN FOLDS AND THINNER PINK-RED SPOTS THAT ARE ALMOST CLEARED. PLEASE NO RUBBING, PICKING, SCRATCHING AT PSORIASIS.Authorizing Provider: JANY LYLES * Telephone Encounter - Juany Marion LPN - 02/08/2025 7:07 AM EDTPending Prescriptions: Disp Refills Triamcinolone Acetonide 0.1 % External Oin*454 g 2 Sig: Apply 2x daily (or more if itchy instead of scratching) to psoriasis in skin folds and thinner pink-red spots that are almost cleared. Please no rubbing, picking, scratching at psoriasis. documented in this encounter Plan of Treatment Health Maintenance Due Date Last Done Comments Depression Screening 1974 Diabetic Eye Exam 02/21/1980 Diabetic Foot Exam 02/21/1980 Albumin/Creatinine Ratio 05/17/2004 05/17/2003 Cologuard 2007 Colonoscopy 2007 Colorectal Cancer Screening 2007 Fecal Occult Blood Test 2007 Sigmoidoscopy 2007 Lipid Panel 12/04/2009 12/04/2004, 05/2004, 05/09/2003, Additional history exists Pneumococcal Vaccine: 50+ Years (3 of 3 - PCV) 10/14/2012 10/14/2011, 09/09/2006, 11/01/1999 DTap/Tdap Vaccines (2 - Td or Tdap) 10/18/2018 10/18/2008 COVID-19 Vaccine (3 - Mixed Product risk series) 03/07/2021 02/07/2021, 01/10/2021 Mammogram 04/01/2024 04/01/2023, 08/01, 08/20/2004, Additional history exists HbA1c 05/14/2024 11/14/2023, 04/01, 12/12/2022, Additional history exists GFR 01/26/2025 01/27/2024, 12/31, 11/17/2023, Additional history exists Influenza Vaccine (FLU shot) (Season Ended) 2025 08/23/2023, 08/02/2020, 08/11/2019, Additional history exists Pap Smear Discontinued 03/14/2002 Hepatitis B Vaccine Completed 05/12/2023, 04/13/2023, 02/06/2019, Additional history exists Meningitis B Vaccine (Bexsero/Trumemba) Aged Out 08/17/2023 No longer eligible based on patient's age to complete this topic Zoster Vaccines Completed 08/23/2023, 04/23/2023 HIV Screening Completed 12/28/2023, 11/01, 04/19/2023 HPV (Gardasil) Vaccine Aged Out No lo nger eligible based on patient's age to complete this topic MENINGOCOCCAL (MENACTRA/MENVEO) Aged Out No longer eligible based on patient's age to complete this topic documented as of this encounter Medical Devices Not on filedocumented as of this encounter Visit Diagnoses Diagnosis Inverse psoriasis Other psoriasis documented in this encounter Care Teams Tool Specialist Relationship Specialty Start Date End Date She Davis DO [address] [facility] [address] [place] [address] PCP - General Family Medicine 12/13/19 documented as of this encounter
[2025-02-21] MEDS: DEXTROSE 50% 50 ML SYRINGE IV PRN (04:09)
[2025-02-21] MEDS ORDERED: INSULIN REGULAR 250 UNITS in SODIUM CHLORIDE 0.9% 247.5 ML IV SCH (06:00)
[2025-02-21 07:23] LABS: Hematocrit (blood only) 33.5 % (37.0-47.0); Hemoglobin 11.3 g/dl (12.0-16.0); Mean Corpuscular Hemoglobin 30.6 pg (25.0-34.0); Mean Corpuscular Hgb Conc 33.7 g/dL (32.0-36.0); Mean Corpuscular Volume 90.8 fL (80.0-100.0); Mean Platelet Volume 11.8 fL (9.4-12.4); Platelet Count 107 K/uL (130-400); RDW Coefficient of Variation 14.1 % (11.5-14.5); RDW Standard Deviation 47.1 fL (36.4-46.3); Red Blood Count 3.69 M/uL (4.20-5.40); White Blood Count 5.23 K/ul (4.8-10.8)
[2025-02-21 07:45] LABS: Albumin Globulin Ratio 1.5 (0.9-2); Albumin Level 3.5 gm/dl (3.4-5.0); BUN Creatinine Ratio 22.6 (10-20); Calcium 8.6 mg/dl (8.6-10.3); Creatinine Clr Calc Pharmacy 43.1 ml/min; Globulin 2.4 gm/dl (2.5-4.0); Potassium 5.1 mmol/L (3.5-5.1); Total Protein 5.9 gm/dl (6.0-8.3)
[2025-02-21] MEDS: SODIUM ZIRCONIUM CYCLOSILICATE 10 GM PACKET PO SCH (08:18)
[2025-02-21] MEDS: PANTOprazole 40 MG TAB PO SCH (08:18)
[2025-02-21] MEDS: CETIRIZINE HCL 10 MG TABLET PO SCH (08:18)
[2025-02-21] MEDS: METOPROLOL SUCC 25MG EXT REL TAB PO SCH (08:18)
[2025-02-21] MEDS ORDERED: MAGNESIUM OXIDE 400 MG TAB PO SCH (09:00)
[2025-02-21] MEDS: LANTUS PER UNIT CHARGE SC ONE (09:59)
[2025-02-21] MEDS: INSULIN ASPART PER UNIT CHARGE SC SCH ×2 (12:03→20:22)
[2025-02-21] MEDS: INSULIN REGULAR 250 UNITS in SODIUM CHLORIDE 0.9% 247.5 ML IV SCH (13:07)
--- NOTE | 2025-02-21 13:38 | Pharmacy Report ---
Pharmacy Glycemic Short Note 2 - Date of Service February 21, 2025 - Glycemic Short BSG Results (Last 24 hours): 02/20/25 02/20/25 02/20/25 15:26 17:07 17:43 Glucose 712 H* POC Glucose 569 H* 569 H* 02/20/25 02/20/25 02/20/25 19:36 20:28 20:53 Glucose POC Glucose 547 H* 508 H* 450 H* 02/20/25 02/20/25 02/21/25 22:01 23:02 00:02 Glucose POC Glucose 380 H* 344 H* 273 H 02/21/25 02/21/25 02/21/25 01:00 02:04 03:08 Glucose POC Glucose 244 H 213 H 211 H 02/21/25 02/21/25 02/21/25 04:03 04:33 05:41 Glucose POC Glucose 174 H 220 H 215 H 02/21/25 02/21/25 02/21/25 06:24 06:32 07:28 Glucose 219 H POC Glucose 200 H 191 H 02/21/25 02/21/25 02/21/25 07:48 08:07 08:23 Glucose POC Glucose 193 H 195 H 246 H 02/21/25 02/21/25 02/21/25 08:34 09:32 10:38 Glucose POC Glucose 294 H 313 H* 369 H* 02/21/25 02/21/25 02/21/25 11:09 11:34 12:31 Glucose POC Glucose 397 H* 384 H* 434 H* OUTPATIENT ANTIDIABETIC REGIMEN: * Lantus 8 units SQ QAM * Humalog 8 units SQ with breakfast and Supper and 5 units SQ with lunch HbA1c: 6.9% on 12/21/24 ASSESSMENT: * 65 year old female with type 1.5 diabetes (managed as type 1) admitted last evening with severe hyperglycemia likely precipitated by oral steroid use as an outpatient. Pharmacy was consulted for glycemic management while she is admitted. * BSG on labs was 712mg/dL on admit last evening. AG was 7 and CO2 was 20 (likely not in DKA). Patient did receive methylprednisolone 125mg iv x 1. An insulin drip was started at ~2000 with a BSG goal range of 250-350. BSGs dropped steadily with drip titration. * 0630 BSG was 200mg/dL and was continuing to decrease, so it was decided to transition her SQ insulin. Lantus 10 units SQ x 1 was ordered this morning and the drip was continued with a decreased goal range. * BSGs started rising again with 0830 checks. This is likely in part due to patient eating but was not ordered additional SQ insulin for carb coverage. Novolog scale with carb coverage added starting with lunch. * Lunch BSG continued to rise to 434mg/dL. Increased rate of insulin. No additional steroids are ordered. PLAN FOR INPATIENT GLYCEMIC CONTROL: * Hold outpatient diabetes medications * Basal insulin * Lantus 10 units SQ x 1 today and insulin drip still running (currently at 3 units/hr) * Bolus insulin--SQ * NovoLog per scale ACHS or Q6hrs while NPO * Goal Range: Low 150 mg/dL - High 250 mg/dL * Correction Factor: none * Nutritional / Prandial insulin per carb ratio of 1 unit per 8 grams CHO consumed
[2025-02-21] MEDS: MAGNESIUM OXIDE 400 MG TAB PO SCH (14:39)
--- NOTE | 2025-02-21 15:37 | Hospitalist Progress Note ---
Date of Service February 21, 2025 Assessment & Plan (1) Severe hyperglycemia due to diabetes mellitus: (2) -donor kidney transplant recipient: (3) Liver transplant recipient: Plan This patient is a 65-year-old woman with diabetes managed as type I, liver transplant in 2017 For [facility], kidney transplant in 2023 for diabetic kidney disease, MGUS, GERD, hyperkalemia, chronic thrombocytopenia, here with severe hyperglycemia secondary to corticosteroids. 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 BSG over 700 on admission, now on insulin drip and improving but remains in the 300s. She was given a dose of IV Solu-Medrol in the ER when she presented with flushing and itching thought to be related to allergic reaction. 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 Follows with Dr. Acosta of [facility] nephrology and transplant -continue Lokelma once daily Continue her transplant immunosuppressants including mycophenolate 360 Mg p.o. twice daily, tacrolimus 1 Mg p.o. twice daily - Follow BMP #Liver transplant recipient/PBC-Stable with a mild elevation of bilirubin, no acute issues #Flushing and itching - face, anterior neck. generalized redness not discrete rash or hives-not allergic reaction but likely secondary to severe hyperglycemia. Now resolved. She does have history of psoriasis which she reports always gives her some itching in the scalp and skin -Continue IV benadryl as needed, continue cetirizine, and avoid further systemic steroids #Chronic thrombocytopenia/MGUSstable, this is probably related to her immunosuppressants-follows with hematology #HTN-blood pressures controlled - Continue home Toprol-XL #GERD-no acute issues - Continue PPI DVT prophylaxisenoxaparin Disposition-continued stay but likely discharge to home on 02/22 once off insulin drip and blood sugars improved Admission and Anticipated Discharge Date Admission Date: February 20, 2025 Subjective Patient reports feeling better, no further flushing or itching. Remains on insulin drip. Telemetry with normal sinus rhythm and PACs, normal rates Physical Exam Constitutional: WD/WN, vitals as above Neck: trachea midline, no thyromegaly Cardiovascular: RRR, no murmur, no edema Gastrointestinal (Abdomen): normal bowel sounds, soft, nontender, no hepatosplenomegaly Skin: no rashes, warm and dry Psychiatric: A+Ox3, euthymic affect Results & Data Results & Data Vital Signs (Past 12 Hours) Vital Signs Temp Pulse Pulse Resp BP Pulse Ox O2 Del Method 02/21/25 12:57 66 02/21/25 11:16 36.8 C 61 165/71 H 98 Room Air 02/21/25 07:57 36.9 C 60 18 174/77 H 96 Room Air 02/21/25 06:08 61 Laboratory Results CBC, BMP, LFTs reviewed PG Care Time/CCT Total # of Minutes Spent Total Time Spent with Patient: Total time spent is greater than 50% in coordination of care (as documented) at patient's floor/unit and/or counseling patient: Coding Level of Care Code 34534 SUB INP/OBS CARE 2/35MIN Diagnoses Severe hyperglycemia due to diabetes mellitus E11.65 -donor kidney transplant recipient Z94.0 Liver transplant recipient Z94.4
[2025-02-22 06:16] LABS: Eosinophils # (auto) 0.02 K/uL (0.00-0.50); Eosinophils % (auto) 0.4 %; Hematocrit (blood only) 29.4 % (37.0-47.0); Immature Granulocytes # (auto) 0.01 K/uL (0.01-0.20); Immature Granulocytes % (auto) 0.2 %; Lymphocytes # (auto) 1.39 K/uL (1.20-3.40); Lymphocytes % (auto) 25.6 %; Mean Corpuscular Hemoglobin 31.2 pg (25.0-34.0); Mean Corpuscular Volume 91.6 fL (80.0-100.0); Mean Platelet Volume 11.6 fL (9.4-12.4); Monocytes # (auto) 0.41 K/uL (0.11-0.59); Monocytes % (auto) 7.5 %; Neutrophils # (auto) 3.61 K/uL (1.40-6.50); Neutrophils % (auto) 66.3 %; Platelet Count 104 K/uL (130-400); RDW Coefficient of Variation 14.1 % (11.5-14.5); RDW Standard Deviation 47.1 fL (36.4-46.3); Red Blood Count 3.21 M/uL (4.20-5.40); White Blood Count 5.44 K/ul (4.8-10.8)
[2025-02-22 06:23] LABS: BUN Creatinine Ratio 26.8 (10-20); Creatinine Clr Calc Pharmacy 33.6 ml/min; Potassium 4.9 mmol/L (3.5-5.1)
[2025-02-22 07:25] VITALS: RESP 17; TEMP 97.7
[2025-02-22] MEDS: SODIUM CHLORIDE 0.9% 500 ML IV SCH (07:52)
[2025-02-22] MEDS: LANTUS PER UNIT CHARGE SQ SCH (08:07)
[2025-02-22] MEDS ORDERED: MAGNESIUM OXIDE 400 MG TAB PO SCH (09:00)
[2025-02-22 10:53] VITALS: BP 152/69; PULSE 49; O2SAT 100
--- NOTE | 2025-02-22 11:56 | Pharmacy Report ---
Pharmacy Glycemic Short Note 2 - Date of Service February 22, 2025 - Glycemic Short BSG Results (Last 24 hours): 02/21/25 02/21/25 02/21/25 12:31 13:33 14:33 Glucose POC Glucose 434 H* 433 H* 383 H* 02/21/25 02/21/25 02/21/25 15:33 16:33 17:36 Glucose POC Glucose 339 H* 284 H 259 H 02/21/25 02/21/25 02/21/25 18:40 19:37 20:05 Glucose POC Glucose 283 H 109 H 84 02/22/25 02/22/25 02/22/25 05:29 07:22 11:31 Glucose 158 H POC Glucose 123 H 158 H OUTPATIENT ANTIDIABETIC REGIMEN: * Lantus 8 units SQ QAM * Humalog 8 units SQ with breakfast and Supper and 5 units SQ with lunch HbA1c: 6.9% on 12/21/24 ASSESSMENT: 02/22 * Patient was able to be transitioned off of the insulin drip last evening around 1999 when BSG was below the goal range. A weight based bolus insulin regimen with a stress of ~2 was started at that time. * Fasting BSG was 123mg/dL this morning. Her home dose of Lantus 8 units SQ Q AM was resumed this morning. The bolus insulin regimen will be continued without change. 02/21 * 65 year old female with type 1.5 diabetes (managed as type 1) admitted last evening with severe hyperglycemia likely precipitated by oral steroid use as an outpatient. Pharmacy was consulted for glycemic management while she is admitted. * BSG on labs was 712mg/dL on admit last evening. AG was 7 and CO2 was 20 (likely not in DKA). Patient did receive methylprednisolone 125mg iv x 1. An insulin drip was started at ~2000 with a BSG goal range of 250-350. BSGs dropped steadily with drip titration. * 0630 BSG was 200mg/dL and was continuing to decrease, so it was decided to transition her SQ insulin. Lantus 10 units SQ x 1 was ordered this morning and the drip was continued with a decreased goal range. * BSGs started rising again with 0830 checks. This is likely in part due to patient eating but was not ordered additional SQ insulin for carb coverage. Novolog scale with carb coverage added starting with lunch. * Lunch BSG continued to rise to 434mg/dL. Increased rate of insulin. No additional steroids are ordered. PLAN FOR INPATIENT GLYCEMIC CONTROL: * Hold outpatient diabetes medications * Basal insulin * Lantus 8 units SQ Q AM * Bolus insulin * NovoLog per scale ACHS or Q6hrs while NPO * Goal Range: Low 110 mg/dL - High 150 mg/dL * Correction Factor: 30 mg/dL/unit * Nutritional / Prandial insulin per carb ratio of 1 unit per 10 grams CHO consumed
[2025-02-22 13:24] LABS: BUN Creatinine Ratio 25.2 (10-20); Calcium 7.9 mg/dl (8.6-10.3); Potassium 4.2 mmol/L (3.5-5.1)
[2025-02-22] MEDS: MAGNESIUM OXIDE 400 MG TAB PO SCH (14:04)
[2025-02-22] MEDS ORDERED: HEPARIN 100 UNIT/ML 5ML FLUSH FLUSH PRN (14:11)
--- NOTE | 2025-02-22 14:19 | Discharge Summary ---
Discharge Summary Date of Service February 22, 2025 Principal Dx & Hospital Course #1 = Principal Diagnosis (1) Severe hyperglycemia due to diabetes mellitus: (2) -donor kidney transplant recipient: (3) Liver transplant recipient: Plan This patient is a 65-year-old woman with diabetes managed as type I, liver transplant in 2017 For [facility], kidney transplant in 2023 for diabetic kidney disease, MGUS, GERD, hyperkalemia, chronic thrombocytopenia, here with severe hyperglycemia secondary to corticosteroids. 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 BSG over 700 on admission, now on insulin drip and improving but remains in the 300s. She was given a dose of IV Solu-Medrol in the ER when she presented with flushing and itching thought to be related to allergic reaction. IV fluids given as well for volume depletion - Received insulin drip and transitioned to Lantus and NovoLog once blood sugars better controlled-> can resume home dosing of insulin on discharge Pharmacy glycemic consult appreciated # Kidney transplant recipient/CKD stage III/mild renal insufficiency secondary to volume depletion/chronic hyperkalemia due to calcineurin inhibitors - potassium normal, her baseline creatinine is 1.01.2, it is mildly elevated at 1.28 on admission and improved, then went back up slightly to 1.47 on day of discharge. Further IVFs were given and encouraged to drink po fluids on discharge. Follows with Dr. Acosta of [facility] nephrology and transplant. -continue Lokelma once daily Continue her transplant immunosuppressants including mycophenolate 360 Mg p.o. twice daily, tacrolimus 1 Mg p.o. twice daily - Follow BMP as outpt in 1 week #Liver transplant recipient/PBC-Stable with a mild elevation of bilirubin, no acute issues #Flushing and itching - face, anterior neck. generalized redness not discrete rash or hives-not allergic reaction but likely secondary to severe hyperglycemia. Now resolved. She does have history of psoriasis which she reports always gives her some itching in the scalp and skin #Chronic thrombocytopenia/MGUS/Atypical HUSstable, this is probably related to her immunotherapy eculizimab-follows with hematology #HTN-blood pressures controlled - Continue home Toprol-XL #GERD-no acute issues - Continue PPI DVT prophylaxisenoxaparin Disposition-dc to home Admission HPI Per Admitting Provider 65-year-old woman with IDDM, remote liver transplant for [facility] in 2018 and renal transplant at [facility] a year ago on 11/13/2023 who came to the ED with symptoms of flushing and redness as well as itching. She was found to have a blood sugar of 712. Unfortunately she received a dose of Solu-Medrol IV prior to the blood glucose result. Recently she has been on oral steroids for a trigger finger. She does have type 1.5 diabetes that is managed like a type I with insulin alone and her doses are not very high. She took a double dose of her midday Humalog when she realized her sugar was going up. Her blood sugar came down to 570 after IV fluids. Rhona has been having pain and stiffness of her left thumb and middle finger related to arthritis and her trigger finger. She was given a prednisone burst she took 40 mg yesterday and 40 mg this morning thereafter it was to taper. she noticed her Dexcom sensor reading "high" since this morning but it does not give her a specific reading if it is severely elevated. She did take extra ins ulin at lunchtime but it was only 10 units of short acting insulin. She did have lightheadedness last night. Today she developed flushing and itching of her face and upper chest and came into the ED. She has not had any other recent medication changes. She cannot recall any specific exposures. She has not had any recent illnesses no cough shortness of breath fever URI symptoms sick contacts. She has nausea which started today and is still present without vomiting. She has not had any abdominal pain or diarrhea no dysuria no leg swelling. Discharge Exam Constitutional WD/WN, vitals as above Neck trachea midline, no thyromegaly Cardiovascular RRR, no murmur, no edema Gastrointestinal (Abdomen) normal bowel sounds, soft, nontender, no hepatosplenomegaly Skin no rashes, warm and dry Psychiatric A+Ox3, euthymic affect Discharge Plan Discharge Items Patient Disposition: Home - Self-Care Reason For Visit: HYPERGLYCEMIA Discharge Diagnosis: Severe hyperglycemia secondary to prednisone Dehydration, Acute kidney injury Activity: Resume your previous activity Non-emergency contact: Primary Care Provider and Seater Assembler Call non-emergency contact if: you have any medication questions and your symptoms worsen Follow-up/Referrals: She Davis DO [Primary Care Provider] - (Follow up within 1-2 weeks) Diet: Carb Consistent or DM2 Addtl Attending Provider Instructions: You were admitted for a severe elevation of your blood sugars due to taking prednisone. This improved with giving you high doses of insulin through the IV. This caused you to be dehydrated and you were given some IV fluids as well. Your kidney function is not quite back to your normal-your creatinine was 1.4 on the day of discharge. Please drink plenty of fluids and have your blood work done next Wednesday as we discussed. If your blood sugars go up to over 300, please contact your PCP for further instructions. Pending Studies at Discharge: No Stand-Alone Forms: My [facility] [employer], Smoking Cessation Medications and DC Order Prescriptions: Continued insulin lispro [Humalog KwikPen Insulin] 100 unit/mL insulin pen See Rx Instructions subcut USEASDIRECTD Qty: 60 0RF Rx Instructions: break 8 units, lunch 5 units, supper 8 units pantoprazole 40 mg tablet,delayed release (DR/EC) 40 mg PO QAM Qty: 90 1RF (DME) Dexcom G7 Sensor Device See Rx Instructions .Route Rx Instructions: As directed (DME) miscellaneous medical supply Liquid See Rx Instructions .Route Qty: 1 0RF Rx Instructions: 1L normal saline, 250 cc/hr (DME) pen needle, diabetic [BD Ultra-Fine Leilani Pen Needle] 32 gauge x 5/32" needle See Rx Instructions .ROUTE .MEDSUPPLY Qty: 400 3RF Rx Instructions: Use 4 times daily with insulin injections insulin glargine [Lantus Solostar U-100 Insulin] 100 unit/mL (3 mL) insulin pen 8 unit subcut QAM Lokelma 10 gram powder in packet 10 g PO QAM metoprolol succinate 25 mg tablet extended release 24 hr 25 mg PO QAM tacrolimus 1 mg capsule 1 mg PO AMHS mycophenolate sodium 180 mg tablet,delayed release (DR/EC) 360 mg PO AMHS magnesium oxide 400 mg magnesium capsule See Rx Instructions .ROUTE .COMPLEX Rx Instructions: take 1 capsule by mouth on SAT/SUN//TH and take 2 capsules on WED/WED/WED Discontinued prednisone 10 mg tablet See Rx Instructions PO DAILY Qty: 20 0RF Rx Instructions: orally daily; 40 mg x3 days, 20 mg x3 days, 10 mg x2 days Discharge Orders: Discharge Order (Routine); Ordered 02/22/25 Ordered By: Carmelina Jacobo Admission Data Admit Date/Time: 02/20/25 19:57 Attending Provider: Carmelina Jacobo Admit Provider: Kim Lindsey Primary Care Provider: She Davis Other Providers: Kim Lindsey Hospital Stay Data Consultations 02/20/25 18:43 ED Decision to Admit Stat Pending Results Patient Have Any Pending Studies at Discharge: No Discharge Instructions Given to Patient (Per Discharging Provider) You were admitted for a severe elevation of your blood sugars due to taking prednisone. This improved with giving you high doses of insulin through the IV. This caused you to be dehydrated and you were given some IV fluids as well. Your kidney function is not quite back to your normal-your creatinine was 1.4 on the day of discharge. Please drink plenty of fluids and have your blood work done next Wednesday as we discussed. If your blood sugars go up to over 300, please contact your PCP for further instructions. Total Time Total Time Spent Total Time Spent (In Minutes): 35 min Total Time Includes: Examination of the Patient, Discharge Planning and Medication Reconciliation Coding Level of Care Code 77150 INP/OBS DISCH >30 MIN Diagnoses Severe hyperglycemia due to diabetes mellitus E11.65 -donor kidney transplant recipient Z94.0 Liver transplant recipient Z94.4
== END 2025-02-22 15:06 | disposition home or self-care (01) | DRG 638 ==
LOC: ED 14:56 → 2S 19:57 → SUATTDRO 19:57 → 2S 21:44
DX: Z94.4 Liver transplant status; Z94.0 Kidney transplant status; E10.43 Type 1 diabetes mellitus with diabetic autonomic (poly)neuropathy; T38.0X5A Adverse effect of glucocorticoids and synthetic analogues, initial encounter; T45.1X5A Adverse effect of antineoplastic and immunosuppressive drugs, initial encounter; E86.9 Volume depletion, unspecified; D69.59 Other secondary thrombocytopenia; I12.9 Hypertensive chronic kidney disease with stage 1 through stage 4 chronic kidney disease, or unspecified chronic kidney disease; E87.20 Acidosis, unspecified; K21.9 Gastro-esophageal reflux disease without esophagitis; J44.9 Chronic obstructive pulmonary disease, unspecified; D47.2 Monoclonal gammopathy; Z79.899 Other long term (current) drug therapy; D84.821 Immunodeficiency due to drugs; N18.30 Chronic kidney disease, stage 3 unspecified; Z91.041 Radiographic dye allergy status; E87.5 Hyperkalemia; E10.65 Type 1 diabetes mellitus with hyperglycemia; Z79.621 Long term (current) use of calcineurin inhibitor; K83.01 Primary sclerosing cholangitis; E87.1 Hypo-osmolality and hyponatremia